=== PATIENT | male | born 1945 | race Two or more races ===

== ENCOUNTER 2018-12-04 11:56 | Inpatient (IN) | payer MEDICARE, MEDICAID ==
[~2018-12-04] VITALS: Ht 167.6 cm; Wt 67.8 kg
[2018-12-04] VITALS (12 sets, daily range): BP systolic 71–141; BP diastolic 46–73
--- NOTE | 2018-12-04 11:56 | NUR ---
ED Nurse Note: Patient arrived via [facility] paramedics from [facility] for AMS and respiratory distress with noted desaturation. Patient noted obtunded, with noted respiratory distress while on oxygen via NC. Noted desaturation, and crackles noted on auscultation. Nasotracheal suctioning done but patient remained SOB and tachypneic. Thin, yellow in color, large in amount. ST on the monitor with rate:126, with rectal temperature of 104F. Patient noted with patent and intact Gtube. With left EJ peripheral line gauge 18 and left upper arm PICC line, double lumen, able to draw blood only on red port. With loose, yellow stool, large in amount. Skin is intact, just noted scars on buttocks and sacrum, with dry dark brown discoloration of bilateral lower legs and feet. Noted nonpitting edema on arms and hands.
[2018-12-04] MEDS ORDERED: Acetaminophen 650 MG SUPP RECTAL ONE (12:00)
--- NOTE | 2018-12-04 12:30 | Emergency Room Report ---
History of Present Illness General Chief Complaint: Altered Level of Consciousness Source: Medical Record Present Illness HPI Patient presents from nursing facility in severe distress appears hypoxic and tachypneic patient upon arrival has significantly elevated temperature Patient himself Is nonverbal history of present illness is significantly limited patient was found more altered than usual by nursing staff and Paramedics summoned patient has feeding tube in place unknown regarding vomiting or diarrhea Unknown regarding change in medications patient's care home packet is being reviewed Allergies: Coded Allergies: No Known Allergies (Unverified , 12/04/18) Patient History Limited by: medical condition Past Medical History: see triage record Pertinent Family History: unable to obtain Reviewed Nursing Documentation: PMH: Agreed; PSxH: Agreed Nursing Documentation-PMH Past Medical History: No History, Except For Hx Hypertension: Yes - bradycardia Hx COPD: Yes - Acute pulmonary edema Hx Diabetes: Yes - TYPE 2 Hx Gastrointestinal Problems: Yes - G-tube Hx Neurological Problems: Yes - metabolic encephalopathy, muscle weakness, dementia, myalgia Review of Systems All Other Systems: limited - Limited review of system Physical Exam Vital Signs Date Time Temp Pulse Resp B/P (MAP) Pulse Ox O2 Delivery O2 Flow Rate FiO2 12/04/18 11:56 104.0 128 26 115/62 74 Nasal Cannula 4.0 Sp02 EP Interpretation: reviewed, abnormal - 74% on room air which is low on nonrebreather patient saturating at 98% which is normal percentage Head: normocephalic, atraumatic Eyes: bilateral eye PERRL ENT: dry mucus membranes Neck: supple Respiratory: other - Tachypneic audible crackles, accessory muscle use Cardiovascular #1: regular rate, rhythm Gastrointestinal: non tender, soft - Feeding tube in place umbilical hernia palpable soft and easily reducible Musculoskeletal: other - Patient has a significantly decreased GCS is not withdrawing from stimuli Neurologic: other - Significantly decreased GCS, poor gag reflex Skin: no rash, other - PICC line left upper arm Lymphatic: no adenopathy Procedures Critical Care Time Critical Care Time 70 minutes for initial critical presentation respiratory failure severe sepsis multiple re-evaluations not including any procedural time Intubation Intubation : Consent: Emergent Intubation Method: orotracheal Tube Size (cm): 8.0 Medications: Succinylcholine Breath Sounds after Intubation: equal Intubation Complications: no complications Post Intubation Xray: Yes Attempts: One Patient Tolerated: Well Complications: None Medical Decision Making Diagnostic Impression: Primary Impression: Respiratory failure Additional Impression: Septic shock ER Course Patient is a fairly complex patient with multiple differential to consideration including but not limited to cardiac cardiopulmonary and vascular emergencies Sepsis severe sepsis patient is in acute respiratory failure required airway intubation Sepsis reexamination Time:1400 VS refer to nursing note cvs: RRR respiratory: improved respiration peripheral pulses: 2+radial cap refill:<2 seconds skin exam: warm, dry, not mottled, Labs Test 12/04/18 12:05 White Blood Count 28.1 K/UL (4.8-10.8) Red Blood Count 3.13 M/UL (4.70-6.10) Hemoglobin 7.9 G/DL (14.2-18.0) Hematocrit 24.6 % (42.0-52.0) Mean Corpuscular Volume 79 FL (80-99) Mean Corpuscular Hemoglobin 25.3 PG (27.0-31.0) Mean Corpuscular Hemoglobin Concent 32.2 G/DL (32.0-36.0) Red Cell Distribution Width 18.1 % (11.6-14.8) Platelet Count 491 K/UL (150-450) Mean Platelet Volume 7.3 FL (6.5-10.1) Neutrophils (%) (Auto) % (45.0-75.0) Lymphocytes (%) (Auto) % (20.0-45.0) Monocytes (%) (Auto) % (1.0-10.0) Eosinophils (%) (Auto) % (0.0-3.0) Basophils (%) (Auto) % (0.0-2.0) Urine Color Yellow Urine Appearance Slightly cloudy Urine pH 5 (4.5-8.0) Urine Specific [place] 1.015 (1.005-1.035) Urine Protein 3+ (NEGATIVE) Urine Glucose (UA) Negative (NEGATIVE) Urine Ketones 1+ (NEGATIVE) Urine Blood 2+ (NEGATIVE) Urine Nitrite Negative (NEGATIVE) Urine Bilirubin Negative (NEGATIVE) Urine Urobilinogen 8 MG/DL (0.0-1.0) Urine Leukocyte Esterase 3+ (NEGATIVE) Urine RBC 2-4 /HPF (0 - 0) Urine WBC 40-60 /HPF (0 - 0) Urine Squamous Epithelial Cells Few /LPF (NONE/OCC) Urine Bacteria Moderate /HPF (NONE) Sodium Level 140 MMOL/L (136-145) Potassium Level 3.0 MMOL/L (3.5-5.1) Chloride Level 101 MMOL/L (98-107) Carbon Dioxide Level 23 MMOL/L (21-32) Anion Gap 16 mmol/L (5-15) Blood Urea Nitrogen 33 mg/dL (7-18) Creatinine 1.8 MG/DL (0.55-1.30) Estimat Glomerular Filtration Rate mL/min (>60) Glucose Level 96 MG/DL (74-106) Lactic Acid Level 5.80 mmol/L (0.4-2.0) Calcium Level 8.5 MG/DL (8.5-10.1) Total Bilirubin 1.0 MG/DL (0.2-1.0) Aspartate Amino Transf (AST/SGOT) 62 U/L (15-37) Alanine Aminotransferase (ALT/SGPT) 56 U/L (12-78) Alkaline Phosphatase 144 U/L (46-116) Total Creatine Kinase 223 U/L (26-308) Creatine Kinase MB 4.1 NG/ML (0.0-3.6) Creatine Kinase MB Relative Index 1.8 Troponin I 0.142 ng/mL (0.000-0.056) Pro-B-Type Natriuretic Peptide 2599 pg/mL (0-125) Total Protein 8.2 G/DL (6.4-8.2) Albumin 1.5 G/DL (3.4-5.0) Globulin 6.7 g/dL Albumin/Globulin Ratio 0.2 (1.0-2.7) Lipase 117 U/L (73-393) Rhythm Strip Diag. Results EP Interpretation: yes Rate: 110 Rhythm: no PVC's, no ectopy, other Chest X-Ray Diagnostic Results Chest X-Ray Diagnostic Results #1: Chest X-Ray Ordered: Yes # of Views/Limited/Complete: 1 View Indication: Shortness of Breath Interpretation: no pneumothorax, other - Bilateral infiltrates, cardiomegaly , interstitial disease edema Impression: Other - Bilateral patchy infiltrates Electronically Signed by: Dayton Jain DO Chest X-Ray Diagnostic Results #2: Chest X-Ray Ordered: Yes # of Views/Limited/Complete: 1 View Indication: Other - Intubation Interpretation: no pneumothorax, other - ET tube appropriately positioned, persistent bilateral infiltrates Impression: Other - ET tube appropriate position Electronically Signed by: Dayton Jain DO Last Vital Signs Date Time Temp Pulse Resp B/P (MAP) Pulse Ox O2 Delivery O2 Flow Rate FiO2 12/04/18 11:56 104.0 128 26 115/62 74 Nasal Cannula 4.0 Status: improved Disposition: ADMITTED INPATIENT Condition: Critical Dayton Jain DO Dec 04, 2018 12:30
--- NOTE | 2018-12-04 12:35 | NUR ---
Pt came in with resp distress. NT sxn'd copious amounts of secretions. Pt had increased wob and MD Jain made decision to intubate. Pt was intubated with 8.0 23 @ lip. Pt was placed on AC 15 600 100% +5. Will continue to monitor. Addendum: 12/04/18 at 1530 by GIFTY GLOVER RT Amended: Links added.
[2018-12-04 12:36] LABS: APPEARANCE,URINE SLIGHTLY CLOUDY; BILIRUBIN, URINE NEGATIVE (NEGATIVE); GLUCOSE, URINE (UA) NEGATIVE (NEGATIVE); KETONES,URINE 1+ (NEGATIVE); LEUKOCYTE ESTERASE ,URINE 3+ (NEGATIVE); NITRITE,URINE NEGATIVE (NEGATIVE); PH,URINE 5 (4.5-8.0); PROTEIN,URINE 3+ (NEGATIVE); UROBILINOGEN,URINE 8 MG/DL (0.0-1.0)
[2018-12-04 12:38] LABS: HEMATOCRIT 24.6 % (42.0-52.0); HEMOGLOBIN 7.9 G/DL (14.2-18.0); MEAN CORPUSCULAR VOLUME 79 FL (80-99); PLATELET COUNT 491 K/UL (150-450); RED BLOOD COUNT 3.13 M/UL (4.70-6.10); RED CELL DISTRIBUTION WIDTH 18.1 % (11.6-14.8)
[2018-12-04 12:42] LABS: WHITE BLOOD COUNT 28.1 K/UL (4.8-10.8)
[2018-12-04 12:50] LABS: COLOR,URINE YELLOW
[2018-12-04 13:00] LABS: ANION GAP 16 mmol/L (5-15); BLOOD UREA NITROGEN 33 mg/dL (7-18); CALCIUM 8.5 MG/DL (8.5-10.1); CARBON DIOXIDE 23 MMOL/L (21-32); CHLORIDE 101 MMOL/L (98-107); CREATININE 1.8 MG/DL (0.55-1.30); SODIUM 140 MMOL/L (136-145)
[2018-12-04] MEDS ORDERED: Sodium Chloride 2,200 ML IVLG ONE (13:00)
[2018-12-04] MEDS ORDERED: Piperacillin/Tazobactam 3.375 GM in NS 110 ML IVPB ONE (13:00)
[2018-12-04] MEDS ORDERED: Vancomycin 1.5gm/D5W 275ml 250 ML IVPB ONE (13:00)
--- NOTE | 2018-12-04 13:00 | NUR ---
ED Nurse Note: Patient remains SOB and tachypneic, obtunded and still noted with crackles. ERMD examined and intubated patient at 1235 with ETT size 8.0 at 23 cm lip level and connected to mechanical ventilator with setting of AC 18, TV:600, FiO2:50%. Post intubation CXR and ABG orders in place. Suctioning done. Incontinent care done. Patient noted with low BP after intubation but noted improved. Dr. Dumont also made aware of the WBC:28.1.
[2018-12-04 13:12] LABS: ALANINE AMINOTRANSFERASE 56 U/L (12-78); ALBUMIN 1.5 G/DL (3.4-5.0); ALBUMIN/GLOBULIN RATIO 0.2 (1.0-2.7); ALKALINE PHOSPHATASE 144 U/L (46-116); ASPARTATE AMINO TRANSFERASE 62 U/L (15-37); CKMB 4.1 NG/ML (0.0-3.6); CREATINE KINASE 223 U/L (26-308)
--- NOTE | 2018-12-04 13:55 | Pulmonolgy Critical Care Note ---
Critical Care - Asmt/Plan Problems: (1) Acute respiratory failure (2) Septic shock (3) Hypothyroidism (4) History of hypertension (5) Feeding by G-tube Respiratory: monitor respiratory rate, adjust FIO2, CXR Cardiac: continue to monitor HR/BP Renal: F/U I&O, keep IV fluid, check electrolytes Infectious Disease: check cultures, add antibiotics Gastrointestinal: continue feedings/current rate Endocrine: monitor blood sugar Hematologic: monitor H/H, transfuse if hgb<8.5 Neurologic: PRN Morphine, keep patient comfortable Disposition: keep in ICU Notes Reviewed: stained glass installer Discussed with: nurses, consultants, case makerconstruction project manager - Objective Last 24 Hour Vital Signs Date Time Temp Pulse Resp B/P (MAP) Pulse Ox O2 Delivery O2 Flow Rate FiO2 12/04/18 11:56 104.0 126 32 84/46 74 Nasal Cannula 4.0 12/04/18 11:56 126 32 Nasal Cannula 4.0 12/04/18 11:56 104.0 128 26 115/62 74 Nasal Cannula 4.0 Accucheck: 101 Critical Care - Subjective ROS Limited/Unobtainable: Yes Sputum Amount: Moderate Fluids: NS 100 cc/hour CXR: bilateral infiltrate Labs: Laboratory Tests Test 12/04/18 12:00 12/04/18 12:05 Arterial Blood pH 7.353 (7.350-7.450) Arterial Blood Partial Pressure CO2 40.3 mmHg (35.0-45.0) Arterial Blood Partial Pressure O2 281.2 mmHg (75.0-100.0) H Arterial Blood HCO3 21.9 mmol/L (22.0-26.0) L Arterial Blood Oxygen Saturation 99.5 % (95-100) Arterial Blood Base Excess -3.4 (-2-2) L A[place] Test Positive White Blood Count 28.1 K/UL (4.8-10.8) *H Red Blood Count 3.13 M/UL (4.70-6.10) L Hemoglobin 7.9 G/DL (14.2-18.0) L Hematocrit 24.6 % (42.0-52.0) L Mean Corpuscular Volume 79 FL (80-99) L Mean Corpuscular Hemoglobin 25.3 PG (27.0-31.0) L Mean Corpuscular Hemoglobin Concent 32.2 G/DL (32.0-36.0) Red Cell Distribution Width 18.1 % (11.6-14.8) H Platelet Count 491 K/UL (150-450) H Mean Platelet Volume 7.3 FL (6.5-10.1) Neutrophils (%) (Auto) % (45.0-75.0) Lymphocytes (%) (Auto) % (20.0-45.0) Monocytes (%) (Auto) % (1.0-10.0) Eosinophils (%) (Auto) % (0.0-3.0) Basophils (%) (Auto) % (0.0-2.0) Differential Total Cells Counted 100 Neutrophils % (Manual) 94 % (45-75) H Lymphocytes % (Manual) 4 % (20-45) L Monocytes % (Manual) 2 % (1-10) Eosinophils % (Manual) 0 % (0-3) Basophils % (Manual) 0 % (0-2) Band Neutrophils 0 % (0-8) Platelet Estimate Adequate Platelet Morphology Normal Hypochromasia 3+ Anisocytosis 2+ Microcytosis 1+ Urine Color Yellow Urine Appearance Slightly cloudy Urine pH 5 (4.5-8.0) Urine Specific [place] 1.015 (1.005-1.035) Urine Protein 3+ (NEGATIVE) H Urine Glucose (UA) Negative (NEGATIVE) Urine Ketones 1+ (NEGATIVE) H Urine Blood 2+ (NEGATIVE) H Urine Nitrite Negative (NEGATIVE) Urine Bilirubin Negative (NEGATIVE) Urine Urobilinogen 8 MG/DL (0.0-1.0) H Urine Leukocyte Esterase 3+ (NEGATIVE) H Urine RBC 2-4 /HPF (0 - 0) H Urine WBC 40-60 /HPF (0 - 0) H Urine Squamous Epithelial Cells Few /LPF (NONE/OCC) Urine Bacteria Moderate /HPF (NONE) H Sodium Level 140 MMOL/L (136-145) Potassium Level 3.0 MMOL/L (3.5-5.1) L Chloride Level 101 MMOL/L (98-107) Carbon Dioxide Level 23 MMOL/L (21-32) Anion Gap 16 mmol/L (5-15) H Blood Urea Nitrogen 33 mg/dL (7-18) H Creatinine 1.8 MG/DL (0.55-1.30) H Estimat Glomerular Filtration Rate mL/min (>60) Glucose Level 96 MG/DL (74-106) Lactic Acid Level 5.80 mmol/L (0.4-2.0) H Calcium Level 8.5 MG/DL (8.5-10.1) Total Bilirubin 1.0 MG/DL (0.2-1.0) Aspartate Amino Transf (AST/SGOT) 62 U/L (15-37) H Alanine Aminotransferase (ALT/SGPT) 56 U/L (12-78) Alkaline Phosphatase 144 U/L (46-116) H Total Creatine Kinase 223 U/L (26-308) Creatine Kinase MB 4.1 NG/ML (0.0-3.6) H Creatine Kinase MB Relative Index 1.8 Troponin I 0.142 ng/mL (0.000-0.056) Pro-B-Type Natriuretic Peptide 2599 pg/mL (0-125) H Total Protein 8.2 G/DL (6.4-8.2) Albumin 1.5 G/DL (3.4-5.0) L Globulin 6.7 g/dL Albumin/Globulin Ratio 0.2 (1.0-2.7) L Lipase 117 U/L (73-393) Isaiah Fritz MD Dec 04, 2018 13:55
[2018-12-04] MEDS ORDERED: Albuterol/Ipratropium 3ml neb HHN PRN (14:00)
--- NOTE | 2018-12-04 14:00 | NUR ---
ED NURSE NOTES: Patient's heart rate and breathing improved, with HR 90s-100s. Still with large amount on ETT secretions, yellow in color. Lactic reflex collected. Andrade catheter inserted as ordered. Antibiotics given as ordered.
[2018-12-04] MEDS ORDERED: ASPIR 8181 MG ORAL (14:47)
[2018-12-04] MEDS ORDERED: COLACE100 MG ORAL (14:47)
[2018-12-04] MEDS ORDERED: IPRATROPIU0.2 MG/1 M HHN (14:47)
[2018-12-04] MEDS ORDERED: CARDIZEM30 MG ORAL (14:47)
[2018-12-04] MEDS ORDERED: SYNTHROID25 MCG ORAL (14:47)
[2018-12-04] MEDS ORDERED: Miralax 17gm pkt ORAL PRN (15:05)
[2018-12-04] MEDS ORDERED: Succinylcholine 20mg/ml 10ml vial ONE (15:35)
--- NOTE | 2018-12-04 15:40 | NUR ---
ED Nurse Note: Patient's BP improved, no desaturation noted on current ventilator setting with oxygen saturation of 100%, suctioning done. All medications given as ordered. Transferred to ICU via gurney accompanied by appeals writer, SENIOR SCHEDULER and RT. Ambubagging done by RT while patient is hooked on classroom monitor. No desaturation noted during transfer. Transferred to room 246-E. Patient has no belongings.
--- NOTE | 2018-12-04 16:00 | NUR ---
NURSE NOTES: Patient hooked to telemetry monitor and hooked back to mechanical ventilator with setting of AC 18, TV:600, FiO2:50%, ETT suctioning done with moderate to large yellow secretions noted, PICC line dressing changed. Started IVF of NS at 100 ml/hour as ordered. All extremities elevated with pillows.
--- NOTE | 2018-12-04 17:12 | Diagnostic Imaging Report ---
Indication: Shortness of breath Technique: One view of the chest Comparison: none Findings: There are bilateral diffuse but predominantly lower lung interstitial and airspace infiltrates versus edema. No definite effusions. Heart size is upper limits of normal. Considerable bowel gas is present. Impression: Extensive bilateral interstitial and airspace disease, infiltrates versus edema.
--- NOTE | 2018-12-04 17:13 | Diagnostic Imaging Report ---
Indication: Post intubation Technique: One view of the chest Comparison: 40 minutes earlier Findings: Interim endotracheal intubation, endotracheal tube tip projecting proximally 5 cm above the debbie. Bilateral interstitial and airspace disease persists, unchanged. Left arm midline is noted Impression: Satisfactory endotracheal intubation Other stable findings as described
--- NOTE | 2018-12-04 18:20 | NUR ---
Took off PEEP due to vent order Addendum: 12/04/18 at 1820 by GIFTY GLOVER RT Amended: Links added.
--- NOTE | 2018-12-04 18:30 | NUR ---
NURSE NOTES: Informed Dr. Fritz of serum potassium:3.0 with noted last troponin level:0.142. Asked MD if would like to repeat troponin level and if he would like to give replacement on potassium. Awaiting for further orders. Addendum: 12/04/18 at 1835 by Nika Mendosa RN NURSE NOTES: Call back received with order to repeat troponin in AM and give KCL 40 mEq IVPB once.
--- NOTE | 2018-12-04 19:30 | NUR ---
NURSE NOTES:Received pt, with eyes close appreared fatigue, orally intubated on AC mode ST on the monitor, low 100s bp127/39 temp 100.6F RT arm not moving with 2-3+ edema, left arm 3/5 , bilateral lower extremities respond to pain stimuli , MDs are aware per am DARIANA Maher. Yeung to gravity with moderate amt of ashley yellow colored urine, yeung cath care done. NS at 100ml/hr infusing well to BRADLEY PICC line, site with drsg dry and intact. Pt also has Left EJ g18 cath. patent. Will continue to monitor.
--- NOTE | 2018-12-04 19:33 | NUR ---
HAND-OFF: Report given to Tiesha Mason RN.
[2018-12-04] MEDS ORDERED: Amikacin 1,000 MG in NS 110 ML IV SCH (20:00)
--- NOTE | 2018-12-04 20:30 | NUR ---
NURSE NOTES:Cooling measures were started.
[2018-12-04] MEDS ORDERED: Ertapenem 1 GM in NS 55 ML IV SCH (21:00)
[2018-12-04] MEDS: Heparin 5000 units/ml inj SUBQ SCH (21:13)
--- NOTE | 2018-12-04 22:30 | NUR ---
NURSE NOTES:Temp 99.8F bp stable at this time.
[2018-12-04] MEDS ORDERED: Vancomycin 1 GM in D5W 275 ML IV SCH (23:45)
[2018-12-05] VITALS (24 sets, daily range): BP systolic 137–181; BP diastolic 41–85
--- NOTE | 2018-12-05 | NUR ---
NURSE NOTES: Pt seen attempted to pull out ETT with his left hand- soft wrist restraint applied to left hand per Dr Catrina novoa.
--- NOTE | 2018-12-05 | NUR ---
NURSE NOTES:Fi02 down to 45%. Suctioned tk beige secretions moderate in amt. 02 sat 98%.
--- NOTE | 2018-12-05 02:00 | NUR ---
NURSE NOTES:Suctioned and turned for comfort.
--- NOTE | 2018-12-05 04:09 | NUR ---
NURSE NOTES:Afebrile 99.8F vss. more awake at this time. Explained and reoriented to time place and person- Pt with good eye contact at this time.
[2018-12-05 05:29] LABS: HEMATOCRIT 20.8 % (42.0-52.0); MEAN CORPUSCULAR VOLUME 79 FL (80-99); PLATELET COUNT 357 K/UL (150-450); RED BLOOD COUNT 2.64 M/UL (4.70-6.10); RED CELL DISTRIBUTION WIDTH 17.7 % (11.6-14.8); WHITE BLOOD COUNT 20.9 K/UL (4.8-10.8)
--- NOTE | 2018-12-05 06:00 | NUR ---
NURSE NOTES:complete bed bath with bed changed dne.
[2018-12-05 06:02] LABS: HEMOGLOBIN 6.5 G/DL (14.2-18.0)
[2018-12-05 06:18] LABS: ALANINE AMINOTRANSFERASE 41 U/L (12-78); ALBUMIN 1.3 G/DL (3.4-5.0); ALBUMIN/GLOBULIN RATIO 0.2 (1.0-2.7); ALKALINE PHOSPHATASE 119 U/L (46-116); ANION GAP 11 mmol/L (5-15); ASPARTATE AMINO TRANSFERASE 49 U/L (15-37); BILIRUBIN,DIRECT 0.5 MG/DL (0.0-0.3); BILIRUBIN,TOTAL 0.6 MG/DL (0.2-1.0); BLOOD UREA NITROGEN 30 mg/dL (7-18); CALCIUM 8.1 MG/DL (8.5-10.1); CARBON DIOXIDE 23 MMOL/L (21-32); CHLORIDE 107 MMOL/L (98-107); CREATININE 1.4 MG/DL (0.55-1.30); POTASSIUM 2.8 MMOL/L (3.5-5.1); SODIUM 141 MMOL/L (136-145)
--- NOTE | 2018-12-05 07:19 | NUR ---
RESPIRATORY NOTE: Patient received mechanically ventilated on PB 840 with current ordered vent settings. Patient is orally intubated with 8.0 ETT tube with 23cm at the lip. ETT tube is secured with anchor fast. Patient presents with bilateral rales at lower bases of the lungs. Small amount of thin clear secretions were suctioned without incident. There is an ambu bag available at the bedside and the vent is connected to a red outlet. Vent alarms are functional and audible. Will continue to monitor.
--- NOTE | 2018-12-05 07:19 | NUR ---
HAND-OFF: Report given to Nika Lopez using sbar.
--- NOTE | 2018-12-05 07:40 | NUR ---
NURSE NOTES: Report received from Tiesha Mason RN. Patient noted arousable to speech, opens eyes to speech, PERRLA noted 3 mm in size. SR on the monitor 70s. No s/sx of distress noted with patent and intact ETT size 8.0 at 23 cm lip level to mechanical ventilator received at AC 18, TV:600, FiO2:35%. RT Lisa has changed setting to order setting of AC 16, TV:600, FiO2:35%. Suctioning done, oral care done. With patent and intact Gtube, clamped at this time, no residual noted. With patent and intact indwelling yeung catheter. With patent and intact left upper arm PICC line, unable to draw blood with on going IVF of NS at 100 ml/hour. With patent and intact left EJ saline lock. Repositioning done, all extremities elevated with pillows. Patient noted reaching and trying to pull ETT during dividing machine operator helper, received patient with left soft wrist restraints. Restraint care to be done. Placed bed on lowest position. Call light within reach.
--- NOTE | 2018-12-05 07:49 | NUR ---
NURSE NOTES: Called Dr. Fritz and informed of serum potassium:2.8 and also serum troponin is higher:0.270. Asked if MD would like to repeat troponin. Awaiting for further orders.
[2018-12-05] MEDS ORDERED: Vancomycin 1250mg/D5W 250ml IVPB SCH (08:30)
--- NOTE | 2018-12-05 08:31 | NUR ---
NURSE NOTES: Called and spoke with sister, Viktoria Tenorio and was able to get consent for blood transfusion, witnessed by Saravanan Monterroso RN.
[2018-12-05] MEDS: Heparin 5000 units/ml inj SUBQ SCH ×3 (09:00→20:50)
[2018-12-05] MEDS: Pantoprazole Inj IVP SCH (09:06)
--- NOTE | 2018-12-05 09:23 | NUR ---
RADIOLOGY DEPT CHEST X-RAY DONE.-P.DYE
--- NOTE | 2018-12-05 09:36 | NUR ---
NURSE NOTES: Called Dr. Fritz again and informed on serum potassium:2.8 and elevated troponin. Also clarified order of transfusion of 1 unit PRBC for HGB:6.5. Clarified if MD would just like to transfuse 1 unit. Also made aware that blood won't be available until later per blood bank. [facility]. Awaiting for further orders.
--- NOTE | 2018-12-05 10:46 | Diagnostic Imaging Report ---
APPROVED REPORT CPT Code: 10074 Present Symptoms Shortness of breath BILATERAL: Imaging reveals a patent deep venous system bilaterally. There is no evidence of thrombus within the femoral, popliteal or tibial segments. The greater saphenous veins are also within normal limits. Doppler indicates normal spontaneous flow within these segments.
--- NOTE | 2018-12-05 11:00 | Pulmonolgy Critical Care Note ---
Critical Care - Asmt/Plan Problems: (1) Acute respiratory failure (2) Septic shock (3) History of hypertension (4) Feeding by G-tube (5) Hypothyroidism Respiratory: monitor respiratory rate, adjust FIO2, CXR Cardiac: continue to monitor HR/BP Renal: F/U I&O, check electrolytes Infectious Disease: check cultures, continue antibiotics Gastrointestinal: continue feedings/current rate Hematologic: monitor H/H, transfuse if hgb<8.5 Neurologic: PRN Ativan, PRN Morphine, keep patient comfortable Prophylaxis: Protonix Disposition: keep in ICU Time Spent (Minutes): 40 Notes Reviewed: electron tube assembler, cardio, renal Discussed with: nurses, consultants, counter caseraircraft manager - Objective Last 24 Hour Vital Signs Date Time Temp Pulse Resp B/P (MAP) Pulse Ox O2 Delivery O2 Flow Rate FiO2 12/05/18 10:00 105 19 140/51 (80) 100 12/05/18 09:00 95 19 162/67 (98) 100 12/05/18 08:48 Mechanical Ventilator 12/05/18 08:00 96 12/05/18 08:00 35 12/05/18 08:00 Mechanical Ventilator 12/05/18 08:00 99.5 96 19 149/41 (77) 100 12/05/18 07:30 35 12/05/18 07:15 99 19 35 12/05/18 07:00 90 19 148/56 (86) 100 12/05/18 06:00 88 19 151/47 (81) 100 12/05/18 05:05 94 18 100 12/05/18 05:00 100 19 140/79 (99) 100 12/05/18 04:00 Mechanical Ventilator 12/05/18 04:00 102 12/05/18 04:00 35 12/05/18 04:00 99.6 104 19 137/79 (98) 100 12/05/18 03:18 94 18 100 12/05/18 03:00 95 19 140/42 (74) 100 12/05/18 02:00 96 19 143/42 (75) 100 12/05/18 01:17 97 21 100 12/05/18 01:00 95 19 140/48 (78) 100 12/05/18 00:00 99.8 103 21 141/73 (95) 100 12/05/18 00:00 105 12/05/18 00:00 Mechanical Ventilator 12/05/18 00:00 45 12/04/18 23:15 94 18 100 12/04/18 22:00 103 21 130/73 (92) 100 12/04/18 21:30 100 18 100 12/04/18 21:00 106 21 141/73 (95) 100 12/04/18 20:00 50 12/04/18 20:00 100.8 105 21 133/55 (81) 100 12/04/18 20:00 Mechanical Ventilator 12/04/18 20:00 114 12/04/18 19:38 108 26 100 12/04/18 19:00 105 22 133/49 (77) 100 12/04/18 18:00 104 18 121/54 (76) 100 12/04/18 17:25 101 19 100 12/04/18 17:00 100 21 107/57 (74) 100 12/04/18 16:14 100 26 100 12/04/18 16:00 Mechanical Ventilator 12/04/18 16:00 100.0 101 20 110/60 (77) 100 12/04/18 16:00 100.4 99 20 110/56 100 Mechanical Ventilator 4.0 50 12/04/18 16:00 50 12/04/18 16:00 109 12/04/18 15:35 100.4 99 20 110/56 100 Mechanical Ventilator 50 12/04/18 15:00 101.4 105 18 103/59 99 Mechanical Ventilator 50 12/04/18 14:00 104 20 96/62 99 Mechanical Ventilator 50 12/04/18 13:00 118 21 71/46 94 Mechanical Ventilator 50 12/04/18 12:55 100.5 12/04/18 12:35 119 18 100 12/04/18 11:56 104.0 126 32 84/46 74 Nasal Cannula 4.0 12/04/18 11:56 126 32 Nasal Cannula 4.0 12/04/18 11:56 104.0 128 26 115/62 74 Nasal Cannula 4.0 Status: awake Condition: critical HEENT: atraumatic Neck: full ROM Lungs: clear Heart: HR/BP stable Abdomen: soft, active bowel sounds Extremities: no C/C/E Decubiti: location Micro: Microbiology Date/Time Source Procedure Growth Status 12/04/18 13:15 Nasal Nares Influenza Types A,B Antigen (PEEWEE) - Final Complete 12/04/18 12:05 Urine,Clean Catch Urine Culture - Preliminary NO GROWTH Resulted Accucheck: 101 Critical Care - Subjective ROS Limited/Unobtainable: Yes Interval Events: awake, comfortable Condition: critical FI02: 35 Vent Support Breath Rate: 16 Vent Support Mode: AC Vent Tidal Volume: 600 Sputum Amount: None PEEP: 0.0 PIP: 23 I&O: Intake and Output 12/04/18 12/05/18 19:00 07:00 Intake Total 2560 ml 1200 ml Output Total 150 ml 630 ml Balance 2410 ml 570 ml Intake Oral 0 ml Free Water 0 ml IV Total 2560 ml 1200 ml Output Urine Total 150 ml 630 ml # Voids 60 # Bowel Movements 3 CXR: bilateral infiltrate ET in good position ET-Tube: 8.0 ET Position: 23 Labs: Laboratory Tests Test 12/04/18 12:00 12/04/18 12:05 12/04/18 14:05 12/04/18 21:35 Arterial Blood pH 7.353 (7.350-7.450) Arterial Blood Partial Pressure CO2 40.3 mmHg (35.0-45.0) Arterial Blood Partial Pressure O2 281.2 mmHg (75.0-100.0) H Arterial Blood HCO3 21.9 mmol/L (22.0-26.0) L Arterial Blood Oxygen Saturation 99.5 % (95-100) Arterial Blood Base Excess -3.4 (-2-2) L Aroldo Test Positive White Blood Count 28.1 K/UL (4.8-10.8) *H Red Blood Count 3.13 M/UL (4.70-6.10) L Hemoglobin 7.9 G/DL (14.2-18.0) L Hematocrit 24.6 % (42.0-52.0) L Mean Corpuscular Volume 79 FL (80-99) L Mean Corpuscular Hemoglobin 25.3 PG (27.0-31.0) L Mean Corpuscular Hemoglobin Concent 32.2 G/DL (32.0-36.0) Red Cell Distribution Width 18.1 % (11.6-14.8) H Platelet Count 491 K/UL (150-450) H Mean Platelet Volume 7.3 FL (6.5-10.1) Neutrophils (%) (Auto) % (45.0-75.0) Lymphocytes (%) (Auto) % (20.0-45.0) Monocytes (%) (Auto) % (1.0-10.0) Eosinophils (%) (Auto) % (0.0-3.0) Basophils (%) (Auto) % (0.0-2.0) Differential Total Cells Counted 100 Neutrophils % (Manual) 94 % (45-75) H Lymphocytes % (Manual) 4 % (20-45) L Monocytes % (Manual) 2 % (1-10) Eosinophils % (Manual) 0 % (0-3) Basophils % (Manual) 0 % (0-2) Band Neutrophils 0 % (0-8) Platelet Estimate Adequate Platelet Morphology Normal Hypochromasia 3+ Anisocytosis 2+ Microcytosis 1+ Urine Color Yellow Urine Appearance Slightly cloudy Urine pH 5 (4.5-8.0) Urine Specific [place] 1.015 (1.005-1.035) Urine Protein 3+ (NEGATIVE) H Urine Glucose (UA) Negative (NEGATIVE) Urine Ketones 1+ (NEGATIVE) H Urine Blood 2+ (NEGATIVE) H Urine Nitrite Negative (NEGATIVE) Urine Bilirubin Negative (NEGATIVE) Urine Urobilinogen 8 MG/DL (0.0-1.0) H Urine Leukocyte Esterase 3+ (NEGATIVE) H Urine RBC 2-4 /HPF (0 - 0) H Urine WBC 40-60 /HPF (0 - 0) H Urine Squamous Epithelial Cells Few /LPF (NONE/OCC) Urine Bacteria Moderate /HPF (NONE) H Sodium Level 140 MMOL/L (136-145) Potassium Level 3.0 MMOL/L (3.5-5.1) L Chloride Level 101 MMOL/L (98-107) Carbon Dioxide Level 23 MMOL/L (21-32) Anion Gap 16 mmol/L (5-15) H Blood Urea Nitrogen 33 mg/dL (7-18) H Creatinine 1.8 MG/DL (0.55-1.30) H Estimat Glomerular Filtration Rate mL/min (>60) Glucose Level 96 MG/DL (74-106) Lactic Acid Level 5.80 mmol/L (0.4-2.0) H 3.00 mmol/L (0.66-2.22) H 1.40 mmol/L (0.4-2.0) Calcium Level 8.5 MG/DL (8.5-10.1) Total Bilirubin 1.0 MG/DL (0.2-1.0) Aspartate Amino Transf (AST/SGOT) 62 U/L (15-37) H Alanine Aminotransferase (ALT/SGPT) 56 U/L (12-78) Alkaline Phosphatase 144 U/L (46-116) H Total Creatine Kinase 223 U/L (26-308) Creatine Kinase MB 4.1 NG/ML (0.0-3.6) H Creatine Kinase MB Relative Index 1.8 Troponin I 0.142 ng/mL (0.000-0.056) Pro-B-Type Natriuretic Peptide 2599 pg/mL (0-125) H Total Protein 8.2 G/DL (6.4-8.2) Albumin 1.5 G/DL (3.4-5.0) L Globulin 6.7 g/dL Albumin/Globulin Ratio 0.2 (1.0-2.7) L Lipase 117 U/L (73-393) Test 12/05/18 04:20 12/05/18 08:00 12/05/18 09:20 White Blood Count 20.9 K/UL (4.8-10.8) H Red Blood Count 2.64 M/UL (4.70-6.10) L Hemoglobin 6.5 G/DL (14.2-18.0) *L Hematocrit 20.8 % (42.0-52.0) L Mean Corpuscular Volume 79 FL (80-99) L Mean Corpuscular Hemoglobin 24.8 PG (27.0-31.0) L Mean Corpuscular Hemoglobin Concent 31.5 G/DL (32.0-36.0) L Red Cell Distribution Width 17.7 % (11.6-14.8) H Platelet Count 357 K/UL (150-450) Mean Platelet Volume 7.3 FL (6.5-10.1) Neutrophils (%) (Auto) % (45.0-75.0) Lymphocytes (%) (Auto) % (20.0-45.0) Monocytes (%) (Auto) % (1.0-10.0) Eosinophils (%) (Auto) % (0.0-3.0) Basophils (%) (Auto) % (0.0-2.0) Differential Total Cells Counted 100 Neutrophils % (Manual) 88 % (45-75) H Lymphocytes % (Manual) 5 % (20-45) L Monocytes % (Manual) 5 % (1-10) Eosinophils % (Manual) 1 % (0-3) Basophils % (Manual) 1 % (0-2) Band Neutrophils 0 % (0-8) Platelet Estimate Adequate Platelet Morphology Normal Hypochromasia 4+ Anisocytosis 1+ Microcytosis 1+ Sodium Level 141 MMOL/L (136-145) Potassium Level 2.8 MMOL/L (3.5-5.1) L Chloride Level 107 MMOL/L (98-107) Carbon Dioxide Level 23 MMOL/L (21-32) Anion Gap 11 mmol/L (5-15) Blood Urea Nitrogen 30 mg/dL (7-18) H Creatinine 1.4 MG/DL (0.55-1.30) H Estimat Glomerular Filtration Rate mL/min (>60) Glucose Level 86 MG/DL (74-106) Calcium Level 8.1 MG/DL (8.5-10.1) L Total Bilirubin 0.6 MG/DL (0.2-1.0) Direct Bilirubin 0.5 MG/DL (0.0-0.3) H Aspartate Amino Transf (AST/SGOT) 49 U/L (15-37) H Alanine Aminotransferase (ALT/SGPT) 41 U/L (12-78) Alkaline Phosphatase 119 U/L (46-116) H Troponin I 0.270 ng/mL (0.000-0.056) Total Protein 7.1 G/DL (6.4-8.2) Albumin 1.3 G/DL (3.4-5.0) L Globulin 5.8 g/dL Albumin/Globulin Ratio 0.2 (1.0-2.7) L Random Vancomycin Level 10.3 ug/mL Random Amikacin Level 12.9 ug/mL Arterial Blood pH 7.434 (7.350-7.450) Arterial Blood Partial Pressure CO2 35.5 mmHg (35.0-45.0) Arterial Blood Partial Pressure O2 100.9 mmHg (75.0-100.0) H Arterial Blood HCO3 23.2 mmol/L (22.0-26.0) Arterial Blood Oxygen Saturation 97.5 % (95-100) Arterial Blood Base Excess -0.9 (-2-2) Aroldo Test Positive Isaiah Fritz MD Dec 05, 2018 11:00
--- NOTE | 2018-12-05 11:09 | NUR ---
RD ASSESSMENT & RECOMMENDATIONS SEE CARE ACTIVITY FOR COMPLETE ASSESSMENT DAILY ESTIMATED NEEDS: Needs based on Critical care, sepsis/ 67kg 22-28 kcals/kg 0140-9819 total kcals 1.2-2 g protein/kg 80-134 g total protein 25-30 mL/kg 0934-5255 total fluid mLs NUTRITION DIAGNOSIS: Swallowing difficulty R/T dysphagia as evidenced by pt is PEG dep, currently orally intubated, NPO at this time. CURRENT TF:NPO ENTERAL NUTRITION RECOMMENDATIONS: Jevity 1.2 @ 60ml/hr x 22 hrs + Prosource 1pkt QD to provide 1320ml, 1584kcal, 73g + 11g prot, 1082ml free water * As medically appropriate, initiate Jevity 1.2 @ 20ml/hr x 6 hrs * Advance 10ml q 4-6 hrs as tolerated to goal rate. 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
--- NOTE | 2018-12-05 11:12 | NUR ---
NURSE NOTES: Seen on rounds by Dr. Fritz and MD was made aware of HGB and clarified if he would just like to transfuse one unit with order to transfuse 2 units of PRBC, also made aware that we're still waiting [facility]. Also informed of trending high Troponin levels and MD stated he will consult Dr. Amaya. Informed of the recommendations of fare register repairer for tube feeding and MD ordered to carry out, MD aware that patient is also on IVF of NS at 100 ml/hour. Also ar HARRIS if it is okay to continue to administer Heparin with known low HGB level, platelet count:357 with order to continue to give Heparin and monitor for s/sx of bleeding. Informed that patient came in with PICC line with order to discontinue and insert a new PICC line or peripheral line. Also ordered no weaning at this time.
--- NOTE | 2018-12-05 11:44 | Diagnostic Imaging Report ---
Indication: Dyspnea Technique: One view of the chest Comparison: 12/04/2018 Findings: Extensive bilateral diffuse interstitial and airspace opacities persist, stable on the left, worse on the right. There may be increasing pleural fluid on the right, as well. Stable satisfactory position of endotracheal tube. Left arm midline again demonstrated Impression: Bilateral diffuse interstitial and airspace infiltrates versus edema, worsening on the right over one day
--- NOTE | 2018-12-05 12:00 | NUR ---
NURSE NOTES: Patient resting comfortably. Noted more alert, follows commands and able identify sister at the bedside. Still with episode of reaching ETT, still on left softwrist restraints. Started tube feeding of Jevity 1.2 at 20 ml/hour as ordered. No residual on Gtube noted prior to starting feeding. Denies pain. Repositioning done. Oral care done and suctioning done.
--- NOTE | 2018-12-05 12:47 | Consultation ---
History of Present Illness General Date patient seen: Dec 05, 2018 Chief Complaint: Altered Level of Consciousness Present Illness HPI 73 y/o M with hx of COPD, DM2, HTN, dysphagia s/p G-tube, dementia, SNF resident presents to ED on 12/04 with severe respiratory distress, hypoxia and fever. Febrile to 104. Leukocytosis tot he 20s. Patient was intubated in the ED and transferred to ICU. Allergies: Coded Allergies: No Known Allergies (Unverified , 12/04/18) Medication History Scheduled Aspirin* (Aspir 81*), 81 MG ORAL DAILY, (Reported) Diltiazem HCl (Diltiazem 12Hr ER), 30 MG ORAL EVERY 8 HOURS, (Reported) Docusate Sodium* (Colace*), 100 MG ORAL DAILY, (Reported) Levothyroxine Sodium* (Synthroid*), 25 MCG ORAL DAILY, (Reported) Scheduled PRN Ipratropium [place] 0.5MG/2.5ML (Ipratropium [place] 0.5MG/2.5ML), 0.5 MG HHN Q6H PRN for Shortness of Breath, (Reported) Patient History Healthcare decision maker Resuscitation status Full Code Advanced Directive on File Yes Review of Systems ROS Narrative unable to obtain Physical Exam Physical Exam Narrative Status: awake Condition: critical HEENT: atraumatic Neck: full ROM Lungs: clear Heart: HR/BP stable Abdomen: soft, active bowel sounds Extremities: no C/C/E Decubiti: location Last 24 Hour Vital Signs Date Time Temp Pulse Resp B/P (MAP) Pulse Ox O2 Delivery O2 Flow Rate FiO2 12/05/18 11:00 70 19 158/65 (96) 100 12/05/18 10:45 100 28 35 12/05/18 10:00 105 19 140/51 (80) 100 12/05/18 09:05 95 21 35 12/05/18 09:00 95 19 162/67 (98) 100 12/05/18 08:48 Mechanical Ventilator 12/05/18 08:00 96 12/05/18 08:00 35 12/05/18 08:00 Mechanical Ventilator 12/05/18 08:00 99.5 96 19 149/41 (77) 100 12/05/18 07:30 35 12/05/18 07:15 99 19 35 12/05/18 07:00 90 19 148/56 (86) 100 12/05/18 06:00 88 19 151/47 (81) 100 12/05/18 05:05 94 18 100 12/05/18 05:00 100 19 140/79 (99) 100 12/05/18 04:00 Mechanical Ventilator 12/05/18 04:00 102 12/05/18 04:00 35 12/05/18 04:00 99.6 104 19 137/79 (98) 100 12/05/18 03:18 94 18 100 12/05/18 03:00 95 19 140/42 (74) 100 12/05/18 02:00 96 19 143/42 (75) 100 12/05/18 01:17 97 21 100 12/05/18 01:00 95 19 140/48 (78) 100 12/05/18 00:00 99.8 103 21 141/73 (95) 100 12/05/18 00:00 105 12/05/18 00:00 Mechanical Ventilator 12/05/18 00:00 45 12/04/18 23:15 94 18 100 12/04/18 22:00 103 21 130/73 (92) 100 12/04/18 21:30 100 18 100 12/04/18 21:00 106 21 141/73 (95) 100 12/04/18 20:00 50 12/04/18 20:00 100.8 105 21 133/55 (81) 100 12/04/18 20:00 Mechanical Ventilator 12/04/18 20:00 114 12/04/18 19:38 108 26 100 12/04/18 19:00 105 22 133/49 (77) 100 12/04/18 18:00 104 18 121/54 (76) 100 12/04/18 17:25 101 19 100 12/04/18 17:00 100 21 107/57 (74) 100 12/04/18 16:14 100 26 100 12/04/18 16:00 Mechanical Ventilator 12/04/18 16:00 100.0 101 20 110/60 (77) 100 12/04/18 16:00 100.4 99 20 110/56 100 Mechanical Ventilator 4.0 50 12/04/18 16:00 50 12/04/18 16:00 109 12/04/18 15:35 100.4 99 20 110/56 100 Mechanical Ventilator 50 12/04/18 15:00 101.4 105 18 103/59 99 Mechanical Ventilator 50 12/04/18 14:00 104 20 96/62 99 Mechanical Ventilator 50 12/04/18 13:00 118 21 71/46 94 Mechanical Ventilator 50 12/04/18 12:55 100.5 12/04/18 12:35 119 18 100 Intake and Output 12/04/18 12/05/18 19:00 07:00 Intake Total 2560 ml 1200 ml Output Total 150 ml 630 ml Balance 2410 ml 570 ml Intake Oral 0 ml Free Water 0 ml IV Total 2560 ml 1200 ml Output Urine Total 150 ml 630 ml # Voids 60 # Bowel Movements 3 Laboratory Tests Test 12/04/18 14:05 12/04/18 21:35 12/05/18 04:20 12/05/18 08:00 Lactic Acid Level 3.00 mmol/L (0.66-2.22) H 1.40 mmol/L (0.4-2.0) White Blood Count 20.9 K/UL (4.8-10.8) H Red Blood Count 2.64 M/UL (4.70-6.10) L Hemoglobin 6.5 G/DL (14.2-18.0) *L Hematocrit 20.8 % (42.0-52.0) L Mean Corpuscular Volume 79 FL (80-99) L Mean Corpuscular Hemoglobin 24.8 PG (27.0-31.0) L Mean Corpuscular Hemoglobin Concent 31.5 G/DL (32.0-36.0) L Red Cell Distribution Width 17.7 % (11.6-14.8) H Platelet Count 357 K/UL (150-450) Mean Platelet Volume 7.3 FL (6.5-10.1) Neutrophils (%) (Auto) % (45.0-75.0) Lymphocytes (%) (Auto) % (20.0-45.0) Monocytes (%) (Auto) % (1.0-10.0) Eosinophils (%) (Auto) % (0.0-3.0) Basophils (%) (Auto) % (0.0-2.0) Differential Total Cells Counted 100 Neutrophils % (Manual) 88 % (45-75) H Lymphocytes % (Manual) 5 % (20-45) L Monocytes % (Manual) 5 % (1-10) Eosinophils % (Manual) 1 % (0-3) Basophils % (Manual) 1 % (0-2) Band Neutrophils 0 % (0-8) Platelet Estimate Adequate Platelet Morphology Normal Hypochromasia 4+ Anisocytosis 1+ Microcytosis 1+ Sodium Level 141 MMOL/L (136-145) Potassium Level 2.8 MMOL/L (3.5-5.1) L Chloride Level 107 MMOL/L (98-107) Carbon Dioxide Level 23 MMOL/L (21-32) Anion Gap 11 mmol/L (5-15) Blood Urea Nitrogen 30 mg/dL (7-18) H Creatinine 1.4 MG/DL (0.55-1.30) H Estimat Glomerular Filtration Rate mL/min (>60) Glucose Level 86 MG/DL (74-106) Calcium Level 8.1 MG/DL (8.5-10.1) L Total Bilirubin 0.6 MG/DL (0.2-1.0) Direct Bilirubin 0.5 MG/DL (0.0-0.3) H Aspartate Amino Transf (AST/SGOT) 49 U/L (15-37) H Alanine Aminotransferase (ALT/SGPT) 41 U/L (12-78) Alkaline Phosphatase 119 U/L (46-116) H Troponin I 0.270 ng/mL (0.000-0.056) Total Protein 7.1 G/DL (6.4-8.2) Albumin 1.3 G/DL (3.4-5.0) L Globulin 5.8 g/dL Albumin/Globulin Ratio 0.2 (1.0-2.7) L Random Vancomycin Level 10.3 ug/mL Random Amikacin Level 12.9 ug/mL Test 12/05/18 09:20 Arterial Blood pH 7.434 (7.350-7.450) Arterial Blood Partial Pressure CO2 35.5 mmHg (35.0-45.0) Arterial Blood Partial Pressure O2 100.9 mmHg (75.0-100.0) H Arterial Blood HCO3 23.2 mmol/L (22.0-26.0) Arterial Blood Oxygen Saturation 97.5 % (95-100) Arterial Blood Base Excess -0.9 (-2-2) Aroldo Test Positive Microbiology Date/Time Source Procedure Growth Status 12/04/18 13:15 Nasal Nares Influenza Types A,B Antigen (PEEWEE) - Final Complete Height (Feet): 5 Height (Inches): 7.00 Weight (Pounds): 156 Medications Current Medications Medications (Trade) Dose Ordered Sig/Courtney Route PRN Reason Start Time Stop Time Status Last Admin Dose Admin Acetaminophen (Tylenol) 650 mg Q4H PRN ORAL fever 12/04/18 14:00 01/03/19 13:59 12/05/18 12:02 Albuterol/ Ipratropium (Albuterol/ Ipratropium) 3 ml Q4H PRN HHN Shortness of Breath 12/04/18 14:00 12/09/18 13:59 Amikacin Sulfate 1000 mg/Sodium Chloride 114 ml @ 114 mls/hr Q36H IV 12/06/18 08:00 12/13/18 07:59 Chlorhexidine Gluconate (Amna-Hex 2%) 1 applic DAILY@2000 TOPIC 12/05/18 20:00 01/04/19 19:59 Ertapenem 1 gm/ Sodium Chloride 55 ml @ 110 mls/hr Q24H IV 12/04/18 21:00 12/09/18 20:59 12/04/18 21:12 Heparin Sodium (Porcine) (Heparin 5000 units/ml) 5,000 units EVERY 12 HOURS SUBQ 12/04/18 21:00 01/03/19 20:59 12/05/18 12:04 Lorazepam (Ativan 2mg/ml 1ml) 2 mg Q2H PRN IV For Anxiety 12/04/18 14:00 12/11/18 13:59 Morphine Sulfate (Morphine Sulfate) 4 mg Q4H PRN IVP Severe Pain (Pain Scale 7-10) 12/04/18 14:00 12/11/18 13:59 Norepinephrine Bitartrate 4 mg/ Dextrose 254 ml @ 0 mls/hr Q24H IV 12/04/18 14:00 01/03/19 13:59 Ondansetron HCl (Zofran) 4 mg Q6H PRN IVP Nausea & Vomiting 12/04/18 14:00 01/03/19 13:59 Pantoprazole (Protonix) 40 mg DAILY IVP 12/05/18 09:00 01/04/19 08:59 12/05/18 09:06 Polyethylene Glycol (Miralax) 17 gm DAILYPRN PRN ORAL Constipation 12/04/18 15:05 01/03/19 15:04 Potassium Chloride 100 ml @ 100 mls/hr Q1HR IVPB 12/05/18 12:00 12/05/18 15:59 12/05/18 11:31 Sodium Chloride 1,000 ml @ 100 mls/hr Q10H IVLG 12/04/18 14:55 01/03/19 14:54 12/05/18 10:58 Vancomycin HCl (Vanco rx to dose) 1 ea DAILY PRN MISC PER PHARM 12/04/18 15:15 01/03/19 15:14 Vancomycin HCl/ Dextrose 250 ml @ 166.667 mls/hr DAILY IVPB 12/05/18 08:30 12/10/18 08:29 12/05/18 09:06 Assessment/Plan Assessment/Plan Abx: IV Vancomycin 12/04- Ertapenem 12/04- Amikacin 12/04- Assessment: Severe Sepsis- likely 2ry to PNA, r/o bacteremia, UTI. Possible Flu despite neg screen test -CXR: Bilateral diffuse interstitial and airspace infiltrates versus edema, worsening on the right over one day -Bcx p -u/a wbc 40-60, nit neg, leuk large; ucx p -sp cx p -influenza sc p Fever, improving Leukocytosis, improving Acute respiratory failure s/p intubation 12/04 ELICIA, improving COPD DM2 HTN dysphagia s/p G-tube dementia SNF resident Plan: -Continue empiric IV Vancomycin #2 -D/c amikacin and switch Ertapenem to Meropenem -Add empiric Azithromycin and Tamiflu for atypical and influenza coverage, respectively -f/u cx -Monitor CBC/CMP, temperatures -legionella ag urine -ICU, ETT care -aspiration precautions Thank you for this consultation. Will continue to follow along with you. Discussed with Jazz Wilson M.D. Dec 05, 2018 12:47
--- NOTE | 2018-12-05 14:00 | NUR ---
NURSE NOTES: Patient remained calm and comfortable. No s/sx of distress. SR on the monitor. Repositioning done. On going BT of 1 unit PRBC, no transfusion reaction noted. Still with episode of reaching ETT, still on left softwrist restraints. Restraint care done.
[2018-12-05] MEDS: Azithromycin 250mg tab ORAL SCH (14:39)
--- NOTE | 2018-12-05 16:05 | NUR ---
NURSE NOTES: Patient no s/sx of distress with oxygen saturation of 100%. Denies pain. Completed 1st unit of BT of PRBC and started 2nd unit of PRBC. No s/sx of transfusion reaction noted at this time. Sponge bath given. Afebrile. Oral care done, repositioning done.
[2018-12-05] MEDS: Meropenem 1 GM in NS 55 ML IVPB SCH (18:15)
--- NOTE | 2018-12-05 18:21 | Cardiology Report ---
APPROVED REPORT EXAM: Two-dimensional and M-mode echocardiogram with Doppler and color Doppler. INDICATION LV FUNCTION M-Mode DIMENSIONS IVSd0.6 (0.7-1.1cm)Left Atrium (MM)3.5 (1.6-4.0cm) LVDd3.8 (3.5-5.6cm)Aortic Root2.8 (2.0-3.7cm) PWd0.6 (0.7-1.1cm)Aortic Cusp Exc.2.0 (1.5-2.0cm) IVSs1.2 cm LVDs2.0 (2.5-4.0cm) PWs1.2 cm Normal left ventricular chamber size, systolic function and wall motion. Left ventricular ejection fraction estimated to be 55-60%. No evidence of left ventricular hypertrophy. No evidence of pericardial effusion. All other cardiac chamber sizes are within normal limits. Mild aortic valve sclerosis with adequate cusp excursion. Mildly thickened mitral valve leaflets with normal excursion. Mild mitral annulus and aortic root calcification. Pulmonic valve not well visualized. IVC dilated at 2.4cm without physiologic collapse suggestive of increased RA pressure. A color flow and spectral Doppler study was performed and revealed: Trace aortic regurgitation. Mitral diastolic velocities suggest reduced left ventricular relaxation c/w mild LV diastolic dysfunction (Grade I ) Trace mitral regurgitation. Trace tricuspid regurgitation. Tricuspid systolic velocities suggests peak right ventricular systolic pressure of 20mmHg
--- NOTE | 2018-12-05 18:36 | History & Physical ---
History and Physical History & Physicial Dictated for Int Med - Dr Matthews no. [id number]. ICU Roni Carson MD Dec 05, 2018 18:36
--- NOTE | 2018-12-05 18:45 | NUR ---
NURSE NOTES: Was able to insert another peripheral IV line. Completed transfusion of 2 units PRBC.
--- NOTE | 2018-12-05 19:38 | NUR ---
HAND-OFF: Report given to Christ Muniz RN. Endorsed to discontinue PICC line on left upper arm and PICC line tip for culture.
[2018-12-05] MEDS ORDERED: Dyna-Hex 2% Top Sol 2oz TOPIC SCH (20:00)
--- NOTE | 2018-12-05 20:00 | NUR ---
NURSE NOTES: Received pt in no acute distress. Asleep but arousable to voice and touch. Remains orally intubated and appears to be tolerating current vent settings of AC16 TV600 fiO2 .35 saturating 100%.Secretions mod, white, thick; chest sounds with scattered rhonchi. Afebrile; NSR. PEG intact; GTF with Jevity 1.2 running at 30ml/h with 0 residuals. FC patent, draining good amt of clear yellow urine.LEJ saline lock intact with good blood return.as well as SL on LFA ; PICC on BRADLEY with IVF of NS infusing at 100ml/h. DC'd PICC and sent tip for C&S. Infused IV on LFA. Will continue to monitor. Increase GTF to goal of 60 if tolerated
--- NOTE | 2018-12-05 20:30 | History and Physical Report ---
DATE OF ADMISSION: 12/04/2018 CHIEF COMPLAINT: The patient is a 73-year-old male, who presents with a chief complaint of altered mental status. HISTORY OF PRESENT ILLNESS: The patient is a resident of [facility]. The patient was more altered than usual according to staff at [facility]. The patient presented to [place] emergency room. The patient was found to be hypoxic. The patient also had tachypnea. The patient was admitted for respiratory failure and bilateral pneumonia. PAST MEDICAL HISTORY: Significant for, 1. Diabetes type 2. 2. History of pulmonary embolism. 3. Chronic obstructive pulmonary disease. 4. Hypertension. 5. Hypothyroidism. 6. Chronic renal failure. 7. Dysphagia. 8. Coronary artery disease, status post cardiac arrest. 9. Gout. PAST SURGICAL HISTORY: Significant for PEG placement. CURRENT MEDICATIONS: 1. Aspirin 81 mg one tab p.o. daily. 2. Diltiazem 60 mg p.o. q.8 hours. 3. DuoNeb nebulized q.6 hours p.r.n. 4. Levoxyl 25 mcg p.o. daily. ALLERGIES: No known drug allergies. SOCIAL HISTORY: The patient is single and lives at [facility] as above. The patient denies tobacco or alcohol use. REVIEW OF SYSTEMS: Unable to assess secondary to the patient's mental status. PHYSICAL EXAMINATION: VITAL SIGNS: Temperature 100.5, respirations 18, pulse 86, and blood pressure 154/51. GENERAL: The patient is a well-developed and well-nourished male, who is currently intubated and sedated. HEENT: Eyes, pupils are equal and responsive to light and accommodation. Extraocular movements are intact. NECK: Supple. No lymphadenopathy. CHEST: Diffuse wheezes bilaterally with crackles. Otherwise, clear to auscultation without wheezes or rales. CARDIOVASCULAR: Slightly tachycardic. Regular rhythm. S1 and S2 are normal without murmurs, rubs, or gallops. ABDOMEN: Soft, nontender, and nondistended. Positive bowel sounds. No evidence of hepatosplenomegaly. Currently, no rebound or guarding noted. EXTREMITIES: Negative for clubbing, cyanosis, or edema. NEUROLOGIC: Unable to assess. LABORATORY STUDIES: WBC 28.1, hemoglobin 7.9, hematocrit 24.6, and platelets 491,000. Sodium 140, potassium 3.0, chloride 101, CO2 23, BUN 33, creatinine 1.8, and glucose 96. Troponin elevated at 0.142 . BNP elevated at 2599. Arterial blood gas, pH 7.353, pCO2 40.3, pO2 281.2, bicarb 21.9, base excess -3.4, and oxygen saturation 99.5. A chest x-ray revealed bilateral interstitial and airspace disease consistent with bilateral pneumonia. ASSESSMENT: This is a 73-year-old male. 1. Altered mental status. 2. Respiratory failure. 3. Bilateral pneumonia. 4. Hypoxia. 5. Elevated troponin. 6. Acute on chronic congestive heart failure. 7. Severe anemia. 8. History of chronic obstructive pulmonary disease. 9. Hypertension. 10. Diabetes type 2. 11. Hypothyroidism. 12. Chronic renal failure. 13. Dysphagia. 14. History of coronary artery disease. TREATMENT: 1. Bilateral pneumonia/respiratory failure. Pulmonary consultation has been obtained with Dr. Isaiah Fritz. The patient is currently intubated on the mechanical ventilator. The patient has been started empirically on Tamiflu, azithromycin, and meropenem. Vancomycin has been added by Infectious Disease. We will follow recommendations of Infectious Disease and Pulmonary. 2. Elevated troponin/acute congestive heart failure. Cardiology consultation has been obtained with Dr. Pablo Amaya. 3. Chronic obstructive pulmonary disease. A Pulmonary consultation has been obtained with Dr. Isaiah Fritz as above. 4. Hypertension. The patient is currently hypotensive. 5. Diabetes type 2. The patient has been started on NovoLog sliding scale. 6. Hypothyroidism. Continue Synthroid as above. 7. Chronic renal failure. The patient is currently receiving intravenous fluids. 8. Dysphagia, status post PEG placement. Roni Carson M.D. DR: AALIYAH JOB#: [id number] CC:
--- NOTE | 2018-12-05 22:00 | NUR ---
NURSE NOTES: Awake but calm and watches TV. Bilat soft wrist restraints maintained as pt tends to be impulsive.
[2018-12-06] VITALS (24 sets, daily range): BP systolic 124–174; BP diastolic 17–97
--- NOTE | 2018-12-06 | NUR ---
NURSE NOTES: Calm, asleep. NO distress; VSS
[2018-12-06] MEDS: LORazepam Inj 2mg/ml 1ml IV PRN (03:42)
--- NOTE | 2018-12-06 03:42 | NUR ---
NURSE NOTES: Awake, rstless. Keeps triggering vent alarms with high pressure; pt biting hard on ETT. Suctioned, Ativan 2mg IVP given
--- NOTE | 2018-12-06 04:30 | NUR ---
NURSE NOTES: Calm and quiet; Complete bed bath given. No BM. Skin remains dry and intact. PIV site on left forearm patent. Good UOP. Afebrile; BP stable. Bilat soft wrist restraints continues.
[2018-12-06] MEDS: Meropenem 1 GM in NS 55 ML IVPB SCH ×3 (05:18→22:00)
[2018-12-06 05:29] LABS: HEMATOCRIT 26.8 % (42.0-52.0); HEMOGLOBIN 8.7 G/DL (14.2-18.0); MEAN CORPUSCULAR VOLUME 81 FL (80-99); PLATELET COUNT 351 K/UL (150-450); RED BLOOD COUNT 3.29 M/UL (4.70-6.10); RED CELL DISTRIBUTION WIDTH 17.3 % (11.6-14.8); WHITE BLOOD COUNT 14.4 K/UL (4.8-10.8)
[2018-12-06 05:58] LABS: ALANINE AMINOTRANSFERASE 34 U/L (12-78); ALBUMIN 1.2 G/DL (3.4-5.0); ALBUMIN/GLOBULIN RATIO 0.2 (1.0-2.7); ALKALINE PHOSPHATASE 106 U/L (46-116); ANION GAP 10 mmol/L (5-15); ASPARTATE AMINO TRANSFERASE 33 U/L (15-37); BILIRUBIN,TOTAL 0.4 MG/DL (0.2-1.0); BLOOD UREA NITROGEN 22 mg/dL (7-18); CALCIUM 7.7 MG/DL (8.5-10.1); CARBON DIOXIDE 23 MMOL/L (21-32); CHLORIDE 110 MMOL/L (98-107); CREATININE 1.2 MG/DL (0.55-1.30); PHOSPHORUS 2.7 MG/DL (2.5-4.9); SODIUM 143 MMOL/L (136-145)
--- NOTE | 2018-12-06 07:05 | NUR ---
HAND-OFF: Report given to Moses Way RN.
--- NOTE | 2018-12-06 07:15 | NUR ---
NURSE NOTES: Report received from Hector WESTBROOK. Pt sleepy but arousable, opens eyes, able to nod yes/no. Pt connected to ground support equipment fitter, SR to ST. Pt orally intubated with ETT 8, 23 cm left lipline, AC 16, TV 600, 35% fiO2, 0 PEEP. PEG tube with Jevity 1.2 TF at 50 cc/hr. Andrade intact draining clear ashley urine to gravity. EJ noted and intact LFA IV NS 2 100cc/hr. Safety measures in place with bed locked and in lowest position, side rails x3 up and bed alarm activated. Will continue to monitor and continue plan of care.
[2018-12-06] MEDS ORDERED: Amikacin 1,000 MG in NS 110 ML IV SCH (08:00)
[2018-12-06] MEDS: Pantoprazole Inj IVP SCH (08:50)
[2018-12-06] MEDS: Heparin 5000 units/ml inj SUBQ SCH ×2 (08:53→20:54)
--- NOTE | 2018-12-06 09:00 | NUR ---
NURSE NOTES: Pt suctioned several times. Secretions thick and yellow. Oxygen saturation is 100% on vent. Oral care done. Will continue to monitor.
[2018-12-06] MEDS: Azithromycin 250mg tab ORAL SCH (09:05)
--- NOTE | 2018-12-06 09:36 | NUR ---
RADIOLOGY DEPT CHEST X-RAY DONE.-P.DYE
[2018-12-06] MEDS: Vancomycin 1.5 GM/D5W 250ML IVPB SCH (09:54)
--- NOTE | 2018-12-06 10:35 | Infectious Diseases Prog Note ---
Assessment/Plan Assessment/Plan Abx: IV Vancomycin 12/04- Ertapenem 12/04- Amikacin 12/04- Assessment: Severe Sepsis- likely 2ry to PNA, r/o bacteremia, UTI. Possible Flu despite neg screen test -CXR: Bilateral diffuse interstitial and airspace infiltrates versus edema, worsening on the right over one day -Bcx NTD -u/a wbc 40-60, nit neg, leuk large; ucx 10-20 k GNR -sp cx p -influenza sc neg Fever, improving Leukocytosis, improving Acute respiratory failure s/p intubation 12/04 ELICIA, improving COPD DM2 HTN dysphagia s/p G-tube dementia SNF resident Plan: -Continue empiric IV Vancomycin #3 and Meropenem #2 -Cont empiric Azithromycin and Tamiflu #2 for atypical and influenza coverage, respectively -12/05 AMikacin and Ertapenem #2 -f/u cx -Monitor CBC/CMP, temperatures -f/u legionella ag urine -ICU, ETT care -aspiration precautions Thank you for this consultation. Will continue to follow along with you. Discussed with RN. Subjective Allergies: Coded Allergies: No Known Allergies (Unverified , 12/04/18) Subjective Tm 101 at 35% fio2 wbc improving Bcx NTD Objective Vital Signs Last 24 Hour Vital Signs Date Time Temp Pulse Resp B/P (MAP) Pulse Ox O2 Delivery O2 Flow Rate FiO2 12/06/18 10:00 99 21 129/72 (91) 100 12/06/18 09:49 98 12/06/18 09:20 101.0 12/06/18 09:00 100 21 131/69 (89) 100 12/06/18 08:55 103 27 35 12/06/18 08:00 101.6 100 21 127/65 (85) 100 12/06/18 08:00 Mechanical Ventilator 12/06/18 08:00 35 12/06/18 07:21 97 24 35 12/06/18 07:00 98 19 129/63 (85) 100 12/06/18 06:02 105 23 136/56 (82) 99 12/06/18 05:00 104 18 124/67 (86) 100 12/06/18 04:47 104 20 35 12/06/18 04:00 120 12/06/18 04:00 97.9 120 26 159/78 (105) 98 12/06/18 04:00 35 12/06/18 04:00 Mechanical Ventilator 12/06/18 03:00 94 24 149/70 (96) 99 12/06/18 02:37 90 18 35 12/06/18 02:00 94 19 134/68 (90) 97 12/06/18 01:02 93 20 35 12/06/18 01:00 91 20 148/66 (93) 100 12/06/18 00:00 Mechanical Ventilator 12/06/18 00:00 93 12/06/18 00:00 99.3 91 17 134/69 (90) 100 12/06/18 00:00 35 12/05/18 23:13 87 19 35 12/05/18 23:00 94 18 151/81 (104) 100 12/05/18 22:00 89 17 168/60 (96) 100 12/05/18 21:14 89 17 35 12/05/18 21:00 86 22 162/57 (92) 100 12/05/18 20:05 97.9 91 18 181/54 (96) 100 12/05/18 20:00 91 12/05/18 20:00 Mechanical Ventilator 12/05/18 20:00 35 12/05/18 19:14 87 16 35 12/05/18 19:00 95 20 168/70 (102) 100 12/05/18 18:00 86 20 159/72 (101) 100 12/05/18 17:08 95 22 35 12/05/18 17:00 92 22 148/85 (106) 100 12/05/18 17:00 84 19 174/68 (103) 100 12/05/18 16:00 98.2 84 19 168/51 (90) 100 12/05/18 16:00 88 19 174/68 (103) 100 12/05/18 16:00 Mechanical Ventilator 12/05/18 16:00 50 12/05/18 16:00 35 12/05/18 15:13 88 22 35 12/05/18 15:00 84 19 168/51 (90) 100 12/05/18 14:00 98.9 88 18 150/61 (90) 100 12/05/18 13:43 158/65 12/05/18 13:05 93 21 35 12/05/18 13:00 97.9 90 20 143/41 (75) 100 12/05/18 12:00 Mechanical Ventilator 12/05/18 12:00 96 12/05/18 12:00 100.5 86 18 154/51 (85) 100 12/05/18 12:00 35 12/05/18 11:00 70 19 158/65 (96) 100 12/05/18 10:45 100 28 35 Height (Feet): 5 Height (Inches): 7.00 Weight (Pounds): 160 Objective Status: awake Condition: critical HEENT: atraumatic Neck: full ROM Lungs: clear Heart: HR/BP stable Abdomen: soft, active bowel sounds Extremities: no C/C/E Decubiti: location Microbiology Date/Time Source Procedure Growth Status 12/04/18 12:20 Blood Blood Culture - Preliminary NO GROWTH AFTER 24 HOURS Resulted 12/04/18 12:05 Blood Blood Culture - Preliminary NO GROWTH AFTER 24 HOURS Resulted 12/04/18 13:15 Nasal Nares Influenza Types A,B Antigen (PEEWEE) - Final Complete 12/04/18 12:05 Nasal Nares MRSA Culture - Final Staphylococcus Aureus - Mrsa Complete 12/04/18 12:05 Urine,Clean Catch Urine Culture - Preliminary Gram Negative Bacillus 1 Resulted Laboratory Tests Test 12/05/18 14:40 12/06/18 04:20 12/06/18 09:09 Urine Legionella Antigen Pending White Blood Count 14.4 K/UL (4.8-10.8) H Red Blood Count 3.29 M/UL (4.70-6.10) L Hemoglobin 8.7 G/DL (14.2-18.0) #L Hematocrit 26.8 % (42.0-52.0) L Mean Corpuscular Volume 81 FL (80-99) Mean Corpuscular Hemoglobin 26.3 PG (27.0-31.0) L Mean Corpuscular Hemoglobin Concent 32.4 G/DL (32.0-36.0) Red Cell Distribution Width 17.3 % (11.6-14.8) H Platelet Count 351 K/UL (150-450) Mean Platelet Volume 7.1 FL (6.5-10.1) Neutrophils (%) (Auto) % (45.0-75.0) Lymphocytes (%) (Auto) % (20.0-45.0) Monocytes (%) (Auto) % (1.0-10.0) Eosinophils (%) (Auto) % (0.0-3.0) Basophils (%) (Auto) % (0.0-2.0) Differential Total Cells Counted 100 Neutrophils % (Manual) 89 % (45-75) H Lymphocytes % (Manual) 8 % (20-45) L Monocytes % (Manual) 2 % (1-10) Eosinophils % (Manual) 1 % (0-3) Basophils % (Manual) 0 % (0-2) Band Neutrophils 0 % (0-8) Platelet Estimate Adequate Platelet Morphology Normal Hypochromasia 2+ Anisocytosis 1+ Spherocytes 1+ Sodium Level 143 MMOL/L (136-145) Potassium Level 3.0 MMOL/L (3.5-5.1) L Chloride Level 110 MMOL/L (98-107) H Carbon Dioxide Level 23 MMOL/L (21-32) Anion Gap 10 mmol/L (5-15) Blood Urea Nitrogen 22 mg/dL (7-18) H Creatinine 1.2 MG/DL (0.55-1.30) Estimat Glomerular Filtration Rate mL/min (>60) Glucose Level 122 MG/DL (74-106) H Calcium Level 7.7 MG/DL (8.5-10.1) L Phosphorus Level 2.7 MG/DL (2.5-4.9) Magnesium Level 1.6 MG/DL (1.8-2.4) L Total Bilirubin 0.4 MG/DL (0.2-1.0) Aspartate Amino Transf (AST/SGOT) 33 U/L (15-37) Alanine Aminotransferase (ALT/SGPT) 34 U/L (12-78) Alkaline Phosphatase 106 U/L (46-116) Total Protein 6.8 G/DL (6.4-8.2) Albumin 1.2 G/DL (3.4-5.0) L Globulin 5.6 g/dL Albumin/Globulin Ratio 0.2 (1.0-2.7) L Arterial Blood pH 7.418 (7.350-7.450) Arterial Blood Partial Pressure CO2 37.7 mmHg (35.0-45.0) Arterial Blood Partial Pressure O2 93.4 mmHg (75.0-100.0) Arterial Blood HCO3 23.8 mmol/L (22.0-26.0) Arterial Blood Oxygen Saturation 96.8 % (95-100) Arterial Blood Base Excess -0.6 (-2-2) Aroldo Test Positive Current Medications Medications (Trade) Dose Ordered Sig/Courtney Route PRN Reason Start Time Stop Time Status Last Admin Dose Admin Acetaminophen (Tylenol) 650 mg Q4H PRN ORAL fever 12/04/18 14:00 01/03/19 13:59 12/06/18 08:50 Albuterol/ Ipratropium (Albuterol/ Ipratropium) 3 ml Q4H PRN HHN Shortness of Breath 12/04/18 14:00 12/09/18 13:59 Azithromycin (Zithromax) 500 mg DAILY ORAL 12/05/18 14:00 12/12/18 13:59 12/06/18 09:05 Heparin Sodium (Porcine) (Heparin 5000 units/ml) 5,000 units EVERY 12 HOURS SUBQ 12/04/18 21:00 01/03/19 20:59 12/06/18 08:53 Lorazepam (Ativan 2mg/ml 1ml) 2 mg Q2H PRN IV For Anxiety 12/04/18 14:00 12/11/18 13:59 12/06/18 03:42 Meropenem 1 gm/ Sodium Chloride 55 ml @ 110 mls/hr Q8HR IVPB 12/06/18 14:00 12/11/18 13:59 Morphine Sulfate (Morphine Sulfate) 4 mg Q4H PRN IVP Severe Pain (Pain Scale 7-10) 12/04/18 14:00 12/11/18 13:59 Norepinephrine Bitartrate 4 mg/ Dextrose 254 ml @ 0 mls/hr Q24H IV 12/04/18 14:00 01/03/19 13:59 Ondansetron HCl (Zofran) 4 mg Q6H PRN IVP Nausea & Vomiting 12/04/18 14:00 01/03/19 13:59 Oseltamivir Phosphate (Tamiflu) 30 mg TWICE A DAY ORAL 12/05/18 18:00 12/10/18 17:59 12/06/18 08:51 Pantoprazole (Protonix) 40 mg DAILY IVP 12/05/18 09:00 01/04/19 08:59 12/06/18 08:50 Polyethylene Glycol (Miralax) 17 gm DAILYPRN PRN ORAL Constipation 12/04/18 15:05 01/03/19 15:04 Sodium Chloride 1,000 ml @ 100 mls/hr Q10H IVLG 12/04/18 14:55 01/03/19 14:54 12/06/18 03:21 Vancomycin HCl (Vanco rx to dose) 1 ea DAILY PRN MISC PER PHARM 12/04/18 15:15 01/03/19 15:14 Vancomycin HCl/ Dextrose 250 ml @ 125 mls/hr Q24H IVPB 12/06/18 09:00 12/11/18 08:59 12/06/18 09:54 Jazz Alexander M.D. Dec 06, 2018 10:35
--- NOTE | 2018-12-06 10:38 | Pulmonolgy Critical Care Note ---
Critical Care - Asmt/Plan Problems: (1) Acute respiratory failure (2) Septic shock (3) Hypothyroidism (4) History of hypertension (5) Feeding by G-tube Respiratory: monitor respiratory rate, adjust FIO2, CXR Cardiac: continue to monitor HR/BP Renal: F/U I&O, decrease IV fluid, check electrolytes, other - supplement Mg and K Infectious Disease: check cultures, continue antibiotics Gastrointestinal: continue feedings/current rate Endocrine: check TSH, check HgA1C Neurologic: PRN Ativan Affect: PRN ativan Disposition: keep in ICU Time Spent (Minutes): 40 Notes Reviewed: cardio Discussed with: nurses, consultants, case work aideonline project manager - Objective Last 24 Hour Vital Signs Date Time Temp Pulse Resp B/P (MAP) Pulse Ox O2 Delivery O2 Flow Rate FiO2 12/06/18 10:00 99 21 129/72 (91) 100 12/06/18 09:49 98 12/06/18 09:20 101.0 12/06/18 09:00 100 21 131/69 (89) 100 12/06/18 08:55 103 27 35 12/06/18 08:00 101.6 100 21 127/65 (85) 100 12/06/18 08:00 Mechanical Ventilator 12/06/18 08:00 35 12/06/18 07:21 97 24 35 12/06/18 07:00 98 19 129/63 (85) 100 12/06/18 06:02 105 23 136/56 (82) 99 12/06/18 05:00 104 18 124/67 (86) 100 12/06/18 04:47 104 20 35 12/06/18 04:00 120 12/06/18 04:00 97.9 120 26 159/78 (105) 98 12/06/18 04:00 35 12/06/18 04:00 Mechanical Ventilator 12/06/18 03:00 94 24 149/70 (96) 99 12/06/18 02:37 90 18 35 12/06/18 02:00 94 19 134/68 (90) 97 12/06/18 01:02 93 20 35 12/06/18 01:00 91 20 148/66 (93) 100 12/06/18 00:00 Mechanical Ventilator 12/06/18 00:00 93 12/06/18 00:00 99.3 91 17 134/69 (90) 100 12/06/18 00:00 35 12/05/18 23:13 87 19 35 12/05/18 23:00 94 18 151/81 (104) 100 12/05/18 22:00 89 17 168/60 (96) 100 12/05/18 21:14 89 17 35 12/05/18 21:00 86 22 162/57 (92) 100 12/05/18 20:05 97.9 91 18 181/54 (96) 100 12/05/18 20:00 91 12/05/18 20:00 Mechanical Ventilator 12/05/18 20:00 35 12/05/18 19:14 87 16 35 12/05/18 19:00 95 20 168/70 (102) 100 12/05/18 18:00 86 20 159/72 (101) 100 12/05/18 17:08 95 22 35 12/05/18 17:00 92 22 148/85 (106) 100 12/05/18 17:00 84 19 174/68 (103) 100 12/05/18 16:00 98.2 84 19 168/51 (90) 100 12/05/18 16:00 88 19 174/68 (103) 100 12/05/18 16:00 Mechanical Ventilator 12/05/18 16:00 50 12/05/18 16:00 35 12/05/18 15:13 88 22 35 12/05/18 15:00 84 19 168/51 (90) 100 12/05/18 14:00 98.9 88 18 150/61 (90) 100 12/05/18 13:43 158/65 12/05/18 13:05 93 21 35 12/05/18 13:00 97.9 90 20 143/41 (75) 100 12/05/18 12:00 Mechanical Ventilator 12/05/18 12:00 96 12/05/18 12:00 100.5 86 18 154/51 (85) 100 12/05/18 12:00 35 12/05/18 11:00 70 19 158/65 (96) 100 12/05/18 10:45 100 28 35 Status: awake Condition: critical HEENT: atraumatic Heart: HR/BP stable Abdomen: soft, active bowel sounds Extremities: no C/C/E, edema Decubiti: location Micro: Microbiology Date/Time Source Procedure Growth Status 12/04/18 12:20 Blood Blood Culture - Preliminary NO GROWTH AFTER 24 HOURS Resulted 12/04/18 12:05 Blood Blood Culture - Preliminary NO GROWTH AFTER 24 HOURS Resulted 12/04/18 13:15 Nasal Nares Influenza Types A,B Antigen (PEEWEE) - Final Complete 12/04/18 12:05 Nasal Nares MRSA Culture - Final Staphylococcus Aureus - Mrsa Complete 12/04/18 12:05 Urine,Clean Catch Urine Culture - Preliminary Gram Negative Bacillus 1 Resulted Accucheck: 101 Critical Care - Subjective ROS Limited/Unobtainable: Yes Condition: critical EKG Rhythm: Sinus Rhythm FI02: 35 Vent Support Breath Rate: 16 Vent Support Mode: AC Vent Tidal Volume: 600 Sputum Amount: Scant PEEP: 0.0 PIP: 33 Tube Feeding Amount: 50 I&O: Intake and Output 12/05/18 12/06/18 19:00 07:00 Intake Total 2198.334 ml 1585 ml Output Total 700 ml 870 ml Balance 1498.334 ml 715 ml Free Water 50 ml IV Total 1988.334 ml 1105 ml Tube Feeding 160 ml 480 ml Output Urine Total 700 ml 870 ml CXR: ET in correct position still bilateral infiltrate ET-Tube: 8.0 ET Position: 23 Labs: Laboratory Tests Test 12/05/18 14:40 12/06/18 04:20 12/06/18 09:09 Urine Legionella Antigen Pending White Blood Count 14.4 K/UL (4.8-10.8) H Red Blood Count 3.29 M/UL (4.70-6.10) L Hemoglobin 8.7 G/DL (14.2-18.0) #L Hematocrit 26.8 % (42.0-52.0) L Mean Corpuscular Volume 81 FL (80-99) Mean Corpuscular Hemoglobin 26.3 PG (27.0-31.0) L Mean Corpuscular Hemoglobin Concent 32.4 G/DL (32.0-36.0) Red Cell Distribution Width 17.3 % (11.6-14.8) H Platelet Count 351 K/UL (150-450) Mean Platelet Volume 7.1 FL (6.5-10.1) Neutrophils (%) (Auto) % (45.0-75.0) Lymphocytes (%) (Auto) % (20.0-45.0) Monocytes (%) (Auto) % (1.0-10.0) Eosinophils (%) (Auto) % (0.0-3.0) Basophils (%) (Auto) % (0.0-2.0) Differential Total Cells Counted 100 Neutrophils % (Manual) 89 % (45-75) H Lymphocytes % (Manual) 8 % (20-45) L Monocytes % (Manual) 2 % (1-10) Eosinophils % (Manual) 1 % (0-3) Basophils % (Manual) 0 % (0-2) Band Neutrophils 0 % (0-8) Platelet Estimate Adequate Platelet Morphology Normal Hypochromasia 2+ Anisocytosis 1+ Spherocytes 1+ Sodium Level 143 MMOL/L (136-145) Potassium Level 3.0 MMOL/L (3.5-5.1) L Chloride Level 110 MMOL/L (98-107) H Carbon Dioxide Level 23 MMOL/L (21-32) Anion Gap 10 mmol/L (5-15) Blood Urea Nitrogen 22 mg/dL (7-18) H Creatinine 1.2 MG/DL (0.55-1.30) Estimat Glomerular Filtration Rate mL/min (>60) Glucose Level 122 MG/DL (74-106) H Calcium Level 7.7 MG/DL (8.5-10.1) L Phosphorus Level 2.7 MG/DL (2.5-4.9) Magnesium Level 1.6 MG/DL (1.8-2.4) L Total Bilirubin 0.4 MG/DL (0.2-1.0) Aspartate Amino Transf (AST/SGOT) 33 U/L (15-37) Alanine Aminotransferase (ALT/SGPT) 34 U/L (12-78) Alkaline Phosphatase 106 U/L (46-116) Total Protein 6.8 G/DL (6.4-8.2) Albumin 1.2 G/DL (3.4-5.0) L Globulin 5.6 g/dL Albumin/Globulin Ratio 0.2 (1.0-2.7) L Arterial Blood pH 7.418 (7.350-7.450) Arterial Blood Partial Pressure CO2 37.7 mmHg (35.0-45.0) Arterial Blood Partial Pressure O2 93.4 mmHg (75.0-100.0) Arterial Blood HCO3 23.8 mmol/L (22.0-26.0) Arterial Blood Oxygen Saturation 96.8 % (95-100) Arterial Blood Base Excess -0.6 (-2-2) Aroldo Test Positive Isaiah Fritz MD Dec 06, 2018 10:38
--- NOTE | 2018-12-06 10:48 | NUR ---
NURSE NOTES: Dr Fritz here to see pt. Ordered sputum culture. Will continue to monitor.
--- NOTE | 2018-12-06 11:41 | Diagnostic Imaging Report ---
Indication: Dyspnea Technique: One view of the chest Comparison: 12/05/2018 Findings: Stable satisfactory position of endotracheal tube. Bilateral interstitial and airspace infiltrates versus edema persists, largely unchanged. Pleural fluid on the right is unchanged. Impression: Unchanged, over one day, findings as above.
[2018-12-06] MEDS ORDERED: Potassium Chloride 40 MEQ in Sodium Chloride 550 ML IVPB SCH (12:00)
--- NOTE | 2018-12-06 12:45 | NUR ---
NURSE NOTES: Dr Alexander here to see pt. No new orders. No acute distress. Will continue to monitor.
--- NOTE | 2018-12-06 14:00 | NUR ---
NURSE NOTES: Pt turned and repositioned. Suctioned pt. Oral care done. No acute distress. Will continue to monitor.
--- NOTE | 2018-12-06 16:28 | Internal Med Progress Note ---
Subjective Date of Service: Dec 06, 2018 Physician Name Carson,Roni Attending Physician Isaiah Fritz MD Current Medications Medications (Trade) Dose Ordered Sig/Courtney Route PRN Reason Start Time Stop Time Status Last Admin Dose Admin Acetaminophen (Tylenol) 650 mg Q4H PRN ORAL fever 12/04/18 14:00 01/03/19 13:59 12/06/18 08:50 Albuterol/ Ipratropium (Albuterol/ Ipratropium) 3 ml Q4H PRN HHN Shortness of Breath 12/04/18 14:00 12/09/18 13:59 Azithromycin (Zithromax) 500 mg DAILY ORAL 12/05/18 14:00 12/12/18 13:59 12/06/18 09:05 Heparin Sodium (Porcine) (Heparin 5000 units/ml) 5,000 units EVERY 12 HOURS SUBQ 12/04/18 21:00 01/03/19 20:59 12/06/18 08:53 Lorazepam (Ativan 2mg/ml 1ml) 2 mg Q2H PRN IV For Anxiety 12/04/18 14:00 12/11/18 13:59 12/06/18 03:42 Meropenem 1 gm/ Sodium Chloride 55 ml @ 110 mls/hr Q8HR IVPB 12/06/18 14:00 12/11/18 13:59 12/06/18 14:16 Morphine Sulfate (Morphine Sulfate) 4 mg Q4H PRN IVP Severe Pain (Pain Scale 7-10) 12/04/18 14:00 12/11/18 13:59 Norepinephrine Bitartrate 4 mg/ Dextrose 254 ml @ 0 mls/hr Q24H IV 12/04/18 14:00 01/03/19 13:59 Oseltamivir Phosphate (Tamiflu) 30 mg TWICE A DAY ORAL 12/05/18 18:00 12/10/18 17:59 12/06/18 08:51 Pantoprazole (Protonix) 40 mg DAILY IVP 12/05/18 09:00 01/04/19 08:59 12/06/18 08:50 Vancomycin HCl (Vanco rx to dose) 1 ea DAILY PRN MISC PER PHARM 12/04/18 15:15 01/03/19 15:14 Vancomycin HCl/ Dextrose 250 ml @ 125 mls/hr Q24H IVPB 12/06/18 09:00 12/11/18 08:59 12/06/18 09:54 Allergies: Coded Allergies: No Known Allergies (Unverified , 12/04/18) ROS Limited/Unobtainable: Yes Subjective 73 YO M admitted with respiratory failure. Now pneumonia. Intubated and sedated. ICU. Cover for Int Garret-Dr Matthews Objective Last Vital Signs Date Time Temp Pulse Resp B/P (MAP) Pulse Ox O2 Delivery O2 Flow Rate FiO2 12/06/18 15:00 88 19 144/76 (98) 100 12/06/18 14:51 35 12/06/18 12:00 100.0 12/06/18 12:00 Mechanical Ventilator 12/04/18 16:00 4.0 General Appearance: WD/WN, no apparent distress, lethargic EENT: PERRL/EOMI, normal ENT inspection Neck: non-tender, normal alignment, supple, normal inspection Cardiovascular: normal peripheral pulses, normal rate, regular rhythm, no gallop/murmur, no JVD Respiratory/Chest: chest wall non-tender, respiratory distress, crackles/rales , rhonchi - bilaterally, expiratory wheezing Abdomen: normal bowel sounds, non tender, soft, no organomegaly, no mass Extremities: normal range of motion, non-tender Skin: normal pigmentation, warm/dry Laboratory Tests Test 12/06/18 04:20 12/06/18 09:09 White Blood Count 14.4 K/UL (4.8-10.8) H Red Blood Count 3.29 M/UL (4.70-6.10) L Hemoglobin 8.7 G/DL (14.2-18.0) #L Hematocrit 26.8 % (42.0-52.0) L Mean Corpuscular Volume 81 FL (80-99) Mean Corpuscular Hemoglobin 26.3 PG (27.0-31.0) L Mean Corpuscular Hemoglobin Concent 32.4 G/DL (32.0-36.0) Red Cell Distribution Width 17.3 % (11.6-14.8) H Platelet Count 351 K/UL (150-450) Mean Platelet Volume 7.1 FL (6.5-10.1) Neutrophils (%) (Auto) % (45.0-75.0) Lymphocytes (%) (Auto) % (20.0-45.0) Monocytes (%) (Auto) % (1.0-10.0) Eosinophils (%) (Auto) % (0.0-3.0) Basophils (%) (Auto) % (0.0-2.0) Differential Total Cells Counted 100 Neutrophils % (Manual) 89 % (45-75) H Lymphocytes % (Manual) 8 % (20-45) L Monocytes % (Manual) 2 % (1-10) Eosinophils % (Manual) 1 % (0-3) Basophils % (Manual) 0 % (0-2) Band Neutrophils 0 % (0-8) Platelet Estimate Adequate Platelet Morphology Normal Hypochromasia 2+ Anisocytosis 1+ Spherocytes 1+ Sodium Level 143 MMOL/L (136-145) Potassium Level 3.0 MMOL/L (3.5-5.1) L Chloride Level 110 MMOL/L (98-107) H Carbon Dioxide Level 23 MMOL/L (21-32) Anion Gap 10 mmol/L (5-15) Blood Urea Nitrogen 22 mg/dL (7-18) H Creatinine 1.2 MG/DL (0.55-1.30) Estimat Glomerular Filtration Rate mL/min (>60) Glucose Level 122 MG/DL (74-106) H Calcium Level 7.7 MG/DL (8.5-10.1) L Phosphorus Level 2.7 MG/DL (2.5-4.9) Magnesium Level 1.6 MG/DL (1.8-2.4) L Total Bilirubin 0.4 MG/DL (0.2-1.0) Aspartate Amino Transf (AST/SGOT) 33 U/L (15-37) Alanine Aminotransferase (ALT/SGPT) 34 U/L (12-78) Alkaline Phosphatase 106 U/L (46-116) Total Protein 6.8 G/DL (6.4-8.2) Albumin 1.2 G/DL (3.4-5.0) L Globulin 5.6 g/dL Albumin/Globulin Ratio 0.2 (1.0-2.7) L Arterial Blood pH 7.418 (7.350-7.450) Arterial Blood Partial Pressure CO2 37.7 mmHg (35.0-45.0) Arterial Blood Partial Pressure O2 93.4 mmHg (75.0-100.0) Arterial Blood HCO3 23.8 mmol/L (22.0-26.0) Arterial Blood Oxygen Saturation 96.8 % (95-100) Arterial Blood Base Excess -0.6 (-2-2) Aroldo Test Positive Microbiology Date/Time Source Procedure Growth Status 12/04/18 12:20 Blood Blood Culture - Preliminary NO GROWTH AFTER 24 HOURS Resulted 12/04/18 12:05 Blood Blood Culture - Preliminary NO GROWTH AFTER 24 HOURS Resulted 12/04/18 13:15 Nasal Nares Influenza Types A,B Antigen (PEEWEE) - Final Complete 12/04/18 12:05 Nasal Nares MRSA Culture - Final Staphylococcus Aureus - Mrsa Complete 12/04/18 12:05 Urine,Clean Catch Urine Culture - Preliminary Gram Negative Bacillus 1 Resulted 12/04/18 12:05 Rectum VRE Culture - Final Enterococcus Faecium - Vre Enterococcus Faecalis - Vre Complete 12/04/18 12:05 Rectum - Final NO CARBAPENEM-RESISTANT ENTEROBACTERI... Complete Intake and Output 12/05/18 12/06/18 19:00 07:00 Intake Total 2198.334 ml 1585 ml Output Total 700 ml 870 ml Balance 1498.334 ml 715 ml Free Water 50 ml IV Total 1988.334 ml 1105 ml Tube Feeding 160 ml 480 ml Output Urine Total 700 ml 870 ml Assessment/Plan Problem List: (1) Pneumonia Assessment & Plan: See ID note. Continue meropenem, vanco tamiflu and azithromycin. (2) Anemia Assessment & Plan: S/P tansfusion 2 units PRBC 12/05/18. (3) Elevated troponin Assessment & Plan: See cardiology consult. (4) COPD (chronic obstructive pulmonary disease) (5) HTN (hypertension) Assessment & Plan: Currently on levophed (6) CHF (congestive heart failure) Assessment & Plan: LVEF=55-60% (7) Diabetes mellitus, type II (8) Chronic renal failure Assessment & Plan: See nephrology note. (9) Dysphagia (10) CAD (coronary artery disease) (11) Acute respiratory failure (12) Hypothyroidism Status: not improved Roni Carson MD Dec 06, 2018 16:28
--- NOTE | 2018-12-06 18:27 | NUR ---
NURSE NOTES: Spoke to Dr Cevallos regarding consult. ordered stat troponin and bnp, iv lasix and ekg in am. No acute distress. Will continue to monitor.
--- NOTE | 2018-12-06 19:20 | NUR ---
HAND-OFF: Report given to Linda WESTBROOK.
--- NOTE | 2018-12-06 19:30 | NUR ---
NURSE NOTES: Received report from Seamus RN. Pt awake,alert, opens eyes, able to nod yes/no. Pt orally intubated with ETT 8, 23 cm left lip line, AC 16, TV 600, 35% fiO2, 0 PEEP. PEG tube with Jevity 1.2 TF at 50 cc/hr. Andrade intact draining clear ashley urine to gravity. EJ noted and intact LFA intact. bilateral soft wrist restraint checked. Safety measures in place with bed locked and in lowest position, side rails x3 up and bed alarm activated. Will continue to monitor and continue plan of care.
--- NOTE | 2018-12-06 20:00 | NUR ---
NURSE NOTES: Temp 99.8 axiliary, cooling measure provided. Will continue to monitor patient.
--- NOTE | 2018-12-06 20:20 | NUR ---
CASE MANAGEMENT: REVIEW 73/M DELMIA FROM [facility] CC: AMS SI: ALOC . SEPSIS T 104.0 HR 128 RR 26 BP 71/46 SAT 94% MECH VENT FIO2 50 WBC 28.1 H/H 7.9/24.6 IS: ZOSYN IV X1 VANCO IV X1 NS IVF BOLUS X1 PATIENT ADMITTED TO ICU 12/04/2018 DCP: PATIENT IS FROM [facility]
--- NOTE | 2018-12-06 22:00 | NUR ---
NURSE NOTES: Repositioned patient in bed. With X1 episode of small BM, kept clean and dry. Oral care provided. Will continue plan of care.
[2018-12-07] VITALS (24 sets, daily range): BP systolic 123–170; BP diastolic 39–97
--- NOTE | 2018-12-07 00:15 | NUR ---
HAND-OFF: Report given to DARIANA Romo. Patient temp 99.2 Axillary continue cooling measure.
--- NOTE | 2018-12-07 00:25 | NUR ---
NURSE NOTES: Report received from DARIANA Mckeon. Pt sleepy but arousable, opens eyes, able to nod yes/no. Pt connected to secured entrance monitor, SR to ST. Pt orally intubated with ETT 8, 23 cm left lipline, AC 16, TV 600, 35% fiO2, 0 PEEP. PEG tube with Jevity 1.2 TF at 60 cc/hr at goal. Andrade intact draining clear ashley urine to gravity. Left EJ 18G noted and intact, LFA 18G TKO. Bilateral wrists soft restraints noted, no adverse reaction. Safety measures in place with bed locked and in lowest position, side rails x3 up and bed alarm activated. Will continue to monitor and continue plan of care.
--- NOTE | 2018-12-07 02:00 | NUR ---
NURSE NOTES: Pt's resting in bed, eyes closed, VS stable, in no acute distress. Will continue to monitor.
--- NOTE | 2018-12-07 04:00 | NUR ---
NURSE NOTES: Pt's resting in bed, asleep with eyes closed, in no acute distress. VS stable. Will continue to monitor.
[2018-12-07] MEDS: Meropenem 1 GM in NS 55 ML IVPB SCH ×3 (05:54→21:37)
--- NOTE | 2018-12-07 06:00 | NUR ---
NURSE NOTES: Pt's resting in bed, asleep with eyes closed, in no acute distress. VS stable. Will continue to monitor.
[2018-12-07 06:55] LABS: ALANINE AMINOTRANSFERASE 30 U/L (12-78); ALBUMIN 1.3 G/DL (3.4-5.0); ALBUMIN/GLOBULIN RATIO 0.2 (1.0-2.7); ALKALINE PHOSPHATASE 99 U/L (46-116); ANION GAP 11 mmol/L (5-15); ASPARTATE AMINO TRANSFERASE 24 U/L (15-37); BILIRUBIN,TOTAL 0.3 MG/DL (0.2-1.0); BLOOD UREA NITROGEN 17 mg/dL (7-18); CALCIUM 8.3 MG/DL (8.5-10.1); CARBON DIOXIDE 26 MMOL/L (21-32); CHLORIDE 110 MMOL/L (98-107); CREATININE 1.1 MG/DL (0.55-1.30); PHOSPHORUS 3.2 MG/DL (2.5-4.9); SODIUM 146 MMOL/L (136-145)
[2018-12-07 07:00] LABS: BASOPHILS % (AUTO) 0.6 % (0.0-2.0); HEMATOCRIT 25.5 % (42.0-52.0); HEMOGLOBIN 8.3 G/DL (14.2-18.0); LYMPHOCYTES % (AUTO) 8.2 % (20.0-45.0); MEAN CORPUSCULAR VOLUME 81 FL (80-99); MONOCYTES % (AUTO) 3.7 % (1.0-10.0); NEUTROPHILS % (AUTO) 84.5 % (45.0-75.0); PLATELET COUNT 363 K/UL (150-450); RED BLOOD COUNT 3.15 M/UL (4.70-6.10); RED CELL DISTRIBUTION WIDTH 17.1 % (11.6-14.8); WHITE BLOOD COUNT 13.9 K/UL (4.8-10.8)
--- NOTE | 2018-12-07 07:30 | NUR ---
HAND-OFF: Report given to DARIANA Soto.
--- NOTE | 2018-12-07 07:31 | NUR ---
Received pt on current vent settings. Pt is tolerating well. Pt has copious amounts of secretions and needs frequent sxn. Tube is secure and in place. ALarms are on and audible. Will continue to monitor. Addendum: 12/07/18 at 0732 by GIFTY GLOVER RT Amended: Links added.
--- NOTE | 2018-12-07 08:00 | NUR ---
NURSE NOTES: Received patient agitated, constantly trying to reach for tubes. Bilateral restraints on, no discoloration or swelling noted related to restraints. Active range of motion intact. Cardia monitor showing SR. Patient is intubated ETT8.0/23 cm lip line. AC 16 VT 600 FiO2 35% No peep. Lung sounds diminished bilaterally. Patient has a G tube. Jevity 1.2 at 60 cc/hr. No residual. Tolerating well. Round, non tender abdomen. Hypoactive bowel sounds on all 4 quadrants. Skin intact. L EJ 18, L forearm 18. Potassium and sodium reported to Dr. Fritz. Will continue to monitor patient. HOB elevated, call light within reach, bed on lowest position. Will continue plan of care.
--- NOTE | 2018-12-07 08:54 | NUR ---
RADIOLOGY DEPT CHEST X-RAY DONE.-P.DYE
[2018-12-07] MEDS: Vancomycin 1.5 GM/D5W 250ML IVPB SCH (09:32)
[2018-12-07] MEDS: Azithromycin 250mg tab ORAL SCH (09:32)
[2018-12-07] MEDS: Pantoprazole Inj IVP SCH (09:33)
[2018-12-07] MEDS: Heparin 5000 units/ml inj SUBQ SCH ×2 (09:34→20:23)
--- NOTE | 2018-12-07 09:51 | Pulmonolgy Critical Care Note ---
Critical Care - Asmt/Plan Problems: (1) Acute respiratory failure (2) Septic shock (3) Hypothyroidism (4) History of hypertension (5) Feeding by G-tube Respiratory: monitor respiratory rate, adjust FIO2, CXR Cardiac: continue to monitor HR/BP Renal: F/U I&O, keep IV fluid, check electrolytes Infectious Disease: check cultures, continue antibiotics Gastrointestinal: continue feedings/current rate Endocrine: monitor blood sugar Hematologic: monitor H/H, transfuse if hgb<8.5 Neurologic: PRN Ativan, keep patient comfortable Affect: PRN ativan Prophylaxis: Protonix Disposition: keep in ICU Time Spent (Minutes): 40 Notes Reviewed: laborer concrete paving, cardio Discussed with: nurses, consultants, special education case managerused car manager - Objective Last 24 Hour Vital Signs Date Time Temp Pulse Resp B/P (MAP) Pulse Ox O2 Delivery O2 Flow Rate FiO2 12/07/18 08:00 84 20 160/71 (100) 100 12/07/18 08:00 Mechanical Ventilator 12/07/18 08:00 35 12/07/18 07:30 93 26 35 12/07/18 07:00 90 20 155/90 (111) 100 12/07/18 06:00 99.2 82 20 162/85 (110) 100 12/07/18 05:25 88 21 35 12/07/18 05:00 90 20 158/78 (104) 100 12/07/18 04:00 90 20 154/80 (104) 100 12/07/18 04:00 94 12/07/18 04:00 35 12/07/18 04:00 Mechanical Ventilator 12/07/18 03:10 92 27 35 12/07/18 03:00 90 20 152/87 (108) 100 12/07/18 02:00 99.2 87 20 150/80 (103) 100 12/07/18 01:10 88 23 35 12/07/18 01:00 87 20 155/87 (109) 100 12/07/18 00:00 Mechanical Ventilator 12/07/18 00:00 35 12/07/18 00:00 86 12/07/18 00:00 99.2 90 20 166/76 (106) 100 12/06/18 23:15 90 23 35 12/06/18 23:00 83 20 158/97 (117) 100 12/06/18 22:00 98.9 83 20 147/82 (103) 100 12/06/18 21:12 91 19 35 12/06/18 21:00 90 12 146/79 (101) 100 12/06/18 20:00 93 12/06/18 20:00 99.8 91 19 150/78 (102) 100 12/06/18 20:00 Mechanical Ventilator 12/06/18 20:00 35 12/06/18 19:00 95 12 141/17 (58) 100 12/06/18 18:59 95 24 35 12/06/18 18:02 101.0 12/06/18 18:00 76 20 128/68 (88) 100 12/06/18 17:26 50 12/06/18 17:12 97 26 35 12/06/18 17:00 89 20 150/93 (112) 100 12/06/18 16:00 Mechanical Ventilator 12/06/18 16:00 81 12/06/18 16:00 35 12/06/18 16:00 100.0 88 19 174/68 (103) 100 12/06/18 15:00 88 19 144/76 (98) 100 12/06/18 14:51 88 17 35 12/06/18 14:00 88 19 131/70 (90) 100 12/06/18 14:00 129/75 12/06/18 13:00 89 18 129/75 (93) 100 12/06/18 12:30 92 21 35 12/06/18 12:00 100.0 92 20 126/72 (90) 100 12/06/18 12:00 35 12/06/18 12:00 93 12/06/18 12:00 Mechanical Ventilator 12/06/18 11:00 98 20 128/66 (86) 100 12/06/18 10:57 96 24 35 12/06/18 10:00 99 21 129/72 (91) 100 Status: sedated Condition: critical Lungs: chest wall tender Heart: HR/BP stable, regular Abdomen: non-tender, active bowel sounds Extremities: no C/C/E, edema Decubiti: location, stage Micro: Microbiology Date/Time Source Procedure Growth Status 12/04/18 12:20 Blood Blood Culture - Preliminary NO GROWTH AFTER 48 HOURS Resulted 12/04/18 12:05 Blood Blood Culture - Preliminary NO GROWTH AFTER 48 HOURS Resulted 12/06/18 12:00 Sputum Induced Gram Stain Pending Resulted 12/06/18 12:00 Sputum Induced Sputum Culture - Preliminary Resulted 12/04/18 13:15 Nasal Nares Influenza Types A,B Antigen (PEEWEE) - Final Complete 12/04/18 12:05 Nasal Nares MRSA Culture - Final Staphylococcus Aureus - Mrsa Complete 12/04/18 12:05 Urine,Clean Catch Urine Culture - Preliminary Proteus Mirabilis Resulted 12/04/18 12:05 Rectum VRE Culture - Final Enterococcus Faecium - Vre Enterococcus Faecalis - Vre Complete 12/04/18 12:05 Rectum - Final NO CARBAPENEM-RESISTANT ENTEROBACTERI... Complete Accucheck: 101 Critical Care - Subjective ROS Limited/Unobtainable: Yes Condition: critical EKG Rhythm: Sinus Rhythm FI02: 35 Vent Support Breath Rate: 16 Vent Support Mode: AC Vent Tidal Volume: 600 Sputum Amount: Copious PEEP: 0.0 PIP: 21 Tube Feeding Amount: 60 I&O: Intake and Output 12/06/18 12/07/18 18:59 06:59 Intake Total 1230.0 ml 875 ml Output Total 350 ml 2190 ml Balance 880.0 ml -1315 ml Free Water 100 ml IV Total 590.0 ml 55 ml Tube Feeding 640 ml 720 ml Output Urine Total 350 ml 2190 ml # Bowel Movements 1 CXR: bilateral infiltrate, ET in good position ET-Tube: 8.0 ET Position: 23 Labs: Laboratory Tests Test 12/06/18 19:10 12/06/18 19:20 12/07/18 04:00 12/07/18 05:35 Troponin I 0.051 ng/mL (0.000-0.056) 0.046 ng/mL (0.000-0.056) Pro-B-Type Natriuretic Peptide 3521 pg/mL (0-125) H 3439 pg/mL (0-125) H Arterial Blood pH 7.453 (7.350-7.450) Arterial Blood Partial Pressure CO2 40.3 mmHg (35.0-45.0) Arterial Blood Partial Pressure O2 101.5 mmHg (75.0-100.0) H Arterial Blood HCO3 27.6 mmol/L (22.0-26.0) H Arterial Blood Oxygen Saturation 97.3 % (95-100) Arterial Blood Base Excess 3.4 (-2-2) H Aroldo Test Positive White Blood Count 13.9 K/UL (4.8-10.8) H Red Blood Count 3.15 M/UL (4.70-6.10) L Hemoglobin 8.3 G/DL (14.2-18.0) L Hematocrit 25.5 % (42.0-52.0) L Mean Corpuscular Volume 81 FL (80-99) Mean Corpuscular Hemoglobin 26.3 PG (27.0-31.0) L Mean Corpuscular Hemoglobin Concent 32.6 G/DL (32.0-36.0) Red Cell Distribution Width 17.1 % (11.6-14.8) H Platelet Count 363 K/UL (150-450) Mean Platelet Volume 6.7 FL (6.5-10.1) Neutrophils (%) (Auto) 84.5 % (45.0-75.0) H Lymphocytes (%) (Auto) 8.2 % (20.0-45.0) L Monocytes (%) (Auto) 3.7 % (1.0-10.0) Eosinophils (%) (Auto) 3.0 % (0.0-3.0) Basophils (%) (Auto) 0.6 % (0.0-2.0) Sodium Level 146 MMOL/L (136-145) H Potassium Level 3.0 MMOL/L (3.5-5.1) L Chloride Level 110 MMOL/L (98-107) H Carbon Dioxide Level 26 MMOL/L (21-32) Anion Gap 11 mmol/L (5-15) Blood Urea Nitrogen 17 mg/dL (7-18) Creatinine 1.1 MG/DL (0.55-1.30) Estimat Glomerular Filtration Rate mL/min (>60) Glucose Level 141 MG/DL (74-106) H Calcium Level 8.3 MG/DL (8.5-10.1) L Phosphorus Level 3.2 MG/DL (2.5-4.9) Magnesium Level 1.7 MG/DL (1.8-2.4) L Total Bilirubin 0.3 MG/DL (0.2-1.0) Aspartate Amino Transf (AST/SGOT) 24 U/L (15-37) Alanine Aminotransferase (ALT/SGPT) 30 U/L (12-78) Alkaline Phosphatase 99 U/L (46-116) Total Protein 7.0 G/DL (6.4-8.2) Albumin 1.3 G/DL (3.4-5.0) L Globulin 5.7 g/dL Albumin/Globulin Ratio 0.2 (1.0-2.7) L Isaiah Fritz MD Dec 07, 2018 09:51
--- NOTE | 2018-12-07 10:00 | NUR ---
NURSE NOTES: TUrned and repositioned. Morphine given. Patient comfortable. No distress noted at this time. Will continue plan of care.
[2018-12-07] MEDS: LORazepam Inj 2mg/ml 1ml IV PRN (10:01)
[2018-12-07] MEDS: Morphine Sulfate 4mg/ml Inj (IV/IM USE ONLY) IVP PRN (10:38)
--- NOTE | 2018-12-07 10:49 | NUR ---
Social Work This Sw met with patient, currently in the ICU, sedated, intubated. This Sw spoke with sister, Viktoria ([phone]) who explained niece, Esther Jimenez ([phone]) is the primary contact, but can be difficult to reach due to she is working; sister is the back-up contact for decision making, as needed. Patient's sister appears supportive, as needed, calling the ICU nurses station daily to verify patients progress (and has understanding regarding patients current status). Family are requesting full code, full treatment (have completed a POLST; on patients chart). Patient is from [facility]; sister requesting a transfer back to this facility when ready for discharge. Sister expressed concerns patient will loose his bed; this SW reassured sister regarding making attempts to transfer patient back [facility], will contact her if there are any concerns with this. Brief emotional support provided to sister.
--- NOTE | 2018-12-07 11:18 | Diagnostic Imaging Report ---
Indication: Dyspnea Technique: One view of the chest Comparison: 12/06/2018 Findings: Stable satisfactory position of endotracheal tube. Bilateral interstitial and airspace infiltrates versus edema appear unchanged. There is suggestion of pleural fluid on the right, unchanged Impression: Unchanged, over one day, findings as above.
--- NOTE | 2018-12-07 12:00 | NUR ---
NURSE NOTES: Patient turned and repositioned. Stable at this time. No new orders. Will continue plan of care.
--- NOTE | 2018-12-07 12:02 | Internal Med Progress Note ---
Subjective Physician Name ByronTye Attending Physician Isaiah Fritz MD Current Medications Medications (Trade) Dose Ordered Sig/Courtney Route PRN Reason Start Time Stop Time Status Last Admin Dose Admin Acetaminophen (Tylenol) 650 mg Q4H PRN ORAL fever 12/04/18 14:00 01/03/19 13:59 12/06/18 17:32 Albuterol/ Ipratropium (Albuterol/ Ipratropium) 3 ml Q4H PRN HHN Shortness of Breath 12/04/18 14:00 12/09/18 13:59 Azithromycin (Zithromax) 500 mg DAILY ORAL 12/05/18 14:00 12/12/18 13:59 12/07/18 09:32 Furosemide (Lasix) 40 mg DAILY IV 12/06/18 18:00 01/05/19 17:59 12/07/18 09:32 Heparin Sodium (Porcine) (Heparin 5000 units/ml) 5,000 units EVERY 12 HOURS SUBQ 12/04/18 21:00 01/03/19 20:59 12/07/18 09:34 Lorazepam (Ativan 2mg/ml 1ml) 2 mg Q2H PRN IV For Anxiety 12/04/18 14:00 12/11/18 13:59 12/07/18 10:01 Meropenem 1 gm/ Sodium Chloride 55 ml @ 110 mls/hr Q8HR IVPB 12/06/18 14:00 12/11/18 13:59 12/07/18 05:54 Morphine Sulfate (Morphine Sulfate) 4 mg Q4H PRN IVP Severe Pain (Pain Scale 7-10) 12/04/18 14:00 12/11/18 13:59 12/07/18 10:38 Norepinephrine Bitartrate 4 mg/ Dextrose 254 ml @ 0 mls/hr Q24H IV 12/04/18 14:00 01/03/19 13:59 Oseltamivir Phosphate (Tamiflu) 30 mg TWICE A DAY ORAL 12/05/18 18:00 12/10/18 17:59 12/07/18 09:32 Pantoprazole (Protonix) 40 mg DAILY IVP 12/05/18 09:00 01/04/19 08:59 12/07/18 09:33 Potassium Chloride 100 ml @ 100 mls/hr Q1H IVPB 12/07/18 09:00 12/07/18 12:59 12/07/18 11:00 Vancomycin HCl (Vanco rx to dose) 1 ea DAILY PRN MISC PER PHARM 12/04/18 15:15 01/03/19 15:14 Vancomycin HCl/ Dextrose 250 ml @ 125 mls/hr Q24H IVPB 12/06/18 09:00 12/11/18 08:59 12/07/18 09:32 Allergies: Coded Allergies: No Known Allergies (Unverified , 12/04/18) Subjective awake, open eyes with deep stimulation, intubated, in ICU. Objective Last Vital Signs Date Time Temp Pulse Resp B/P (MAP) Pulse Ox O2 Delivery O2 Flow Rate FiO2 12/07/18 11:24 95 18 35 12/07/18 11:00 145/80 (101) 100 12/07/18 10:00 99.0 12/07/18 08:00 Mechanical Ventilator 12/04/18 16:00 4.0 Laboratory Tests Test 12/06/18 19:10 12/06/18 19:20 12/07/18 04:00 12/07/18 05:35 Troponin I 0.051 ng/mL (0.000-0.056) 0.046 ng/mL (0.000-0.056) Pro-B-Type Natriuretic Peptide 3521 pg/mL (0-125) H 3439 pg/mL (0-125) H Arterial Blood pH 7.453 (7.350-7.450) Arterial Blood Partial Pressure CO2 40.3 mmHg (35.0-45.0) Arterial Blood Partial Pressure O2 101.5 mmHg (75.0-100.0) H Arterial Blood HCO3 27.6 mmol/L (22.0-26.0) H Arterial Blood Oxygen Saturation 97.3 % (95-100) Arterial Blood Base Excess 3.4 (-2-2) H Aroldo Test Positive White Blood Count 13.9 K/UL (4.8-10.8) H Red Blood Count 3.15 M/UL (4.70-6.10) L Hemoglobin 8.3 G/DL (14.2-18.0) L Hematocrit 25.5 % (42.0-52.0) L Mean Corpuscular Volume 81 FL (80-99) Mean Corpuscular Hemoglobin 26.3 PG (27.0-31.0) L Mean Corpuscular Hemoglobin Concent 32.6 G/DL (32.0-36.0) Red Cell Distribution Width 17.1 % (11.6-14.8) H Platelet Count 363 K/UL (150-450) Mean Platelet Volume 6.7 FL (6.5-10.1) Neutrophils (%) (Auto) 84.5 % (45.0-75.0) H Lymphocytes (%) (Auto) 8.2 % (20.0-45.0) L Monocytes (%) (Auto) 3.7 % (1.0-10.0) Eosinophils (%) (Auto) 3.0 % (0.0-3.0) Basophils (%) (Auto) 0.6 % (0.0-2.0) Sodium Level 146 MMOL/L (136-145) H Potassium Level 3.0 MMOL/L (3.5-5.1) L Chloride Level 110 MMOL/L (98-107) H Carbon Dioxide Level 26 MMOL/L (21-32) Anion Gap 11 mmol/L (5-15) Blood Urea Nitrogen 17 mg/dL (7-18) Creatinine 1.1 MG/DL (0.55-1.30) Estimat Glomerular Filtration Rate mL/min (>60) Glucose Level 141 MG/DL (74-106) H Calcium Level 8.3 MG/DL (8.5-10.1) L Phosphorus Level 3.2 MG/DL (2.5-4.9) Magnesium Level 1.7 MG/DL (1.8-2.4) L Total Bilirubin 0.3 MG/DL (0.2-1.0) Aspartate Amino Transf (AST/SGOT) 24 U/L (15-37) Alanine Aminotransferase (ALT/SGPT) 30 U/L (12-78) Alkaline Phosphatase 99 U/L (46-116) Total Protein 7.0 G/DL (6.4-8.2) Albumin 1.3 G/DL (3.4-5.0) L Globulin 5.7 g/dL Albumin/Globulin Ratio 0.2 (1.0-2.7) L Microbiology Date/Time Source Procedure Growth Status 12/04/18 12:20 Blood Blood Culture - Preliminary NO GROWTH AFTER 48 HOURS Resulted 1/22/19 12:05 Blood Blood Culture - Preliminary NO GROWTH AFTER 48 HOURS Resulted 12/06/18 12:00 Sputum Induced Gram Stain Pending Resulted 12/06/18 12:00 Sputum Induced Sputum Culture - Preliminary Resulted 12/04/18 13:15 Nasal Nares Influenza Types A,B Antigen (PEEWEE) - Final Complete 12/04/18 12:05 Nasal Nares MRSA Culture - Final Staphylococcus Aureus - Mrsa Complete 12/04/18 12:05 Urine,Clean Catch Urine Culture - Preliminary Proteus Mirabilis Resulted 12/05/18 20:00 Catheter Site Catheter Tip Culture - Preliminary Resulted 12/04/18 12:05 Rectum VRE Culture - Final Enterococcus Faecium - Vre Enterococcus Faecalis - Vre Complete 12/04/18 12:05 Rectum - Final NO CARBAPENEM-RESISTANT ENTEROBACTERI... Complete Intake and Output 12/06/18 12/07/18 18:59 06:59 Intake Total 1230.0 ml 875 ml Output Total 350 ml 2190 ml Balance 880.0 ml -1315 ml Free Water 100 ml IV Total 590.0 ml 55 ml Tube Feeding 640 ml 720 ml Output Urine Total 350 ml 2190 ml # Bowel Movements 1 Objective General: awake, responsive with open eyes, intubated. HEENT: NCAT, sclera anicteric, PERRL, ET Tube. Neck: Supple, no significant jugular venous distention, Lungs: Mechanical breath sound, decrease air at bases. no Wheeze or Rales. Heart: Regular rate and rhythm, normal S1/S2, no murmur. Abdomen: soft, nontender, nondistended. Normoactive bowel sounds, PEG site intact, + umbilical hernia. / Rectal: Andrade cath. Extremities: No Cyanosis , clubbing or edema. Neuro: A&O x 3, Able to move all extremities slowly. Skin: warm, no rashes Assessment/Plan Assessment/Plan Assessment: Severe Sepsis- likely 2ry to PNA, r/o bacteremia, UTI. Possible Flu despite neg screen test Acute respiratory failure s/p intubation 12/04 ELICIA COPD DM2 HTN Dysphagia s/p G-tube Dementia Plan: -Continue empiric IV Vancomycin IV and Meropenem IV -Cont empiric Azithromycin and Tamiflu -12/05 AMikacin and Ertapenem #2 -monitor labs and culyures, Tube feeding @ 60 cc/hr Heparin SQ Full code. Tye Matthews MD Dec 07, 2018 12:02
--- NOTE | 2018-12-07 13:22 | Cardiac Electrophysiology PN ---
Subjective Subjective [id number] Objective Last 24 Hour Vital Signs Date Time Temp Pulse Resp B/P (MAP) Pulse Ox O2 Delivery O2 Flow Rate FiO2 12/07/18 13:12 97 20 35 12/07/18 13:00 99.1 92 18 160/91 (114) 100 12/07/18 13:00 150/91 12/07/18 12:00 35 12/07/18 12:00 Mechanical Ventilator 12/07/18 12:00 95 18 148/81 (103) 100 12/07/18 11:24 95 18 35 12/07/18 11:00 96 18 145/80 (101) 100 12/07/18 10:00 99.0 90 20 155/78 (103) 100 12/07/18 10:00 94 18 170/97 (121) 100 12/07/18 09:19 97 23 35 12/07/18 09:00 89 20 158/75 (102) 100 12/07/18 08:00 84 20 160/71 (100) 100 12/07/18 08:00 Mechanical Ventilator 12/07/18 08:00 35 12/07/18 08:00 82 12/07/18 07:30 93 26 35 12/07/18 07:00 90 20 155/90 (111) 100 12/07/18 06:00 99.2 82 20 162/85 (110) 100 12/07/18 05:25 88 21 35 12/07/18 05:00 90 20 158/78 (104) 100 12/07/18 04:00 90 20 154/80 (104) 100 12/07/18 04:00 94 12/07/18 04:00 35 12/07/18 04:00 Mechanical Ventilator 12/07/18 03:10 92 27 35 12/07/18 03:00 90 20 152/87 (108) 100 12/07/18 02:00 99.2 87 20 150/80 (103) 100 12/07/18 01:10 88 23 35 12/07/18 01:00 87 20 155/87 (109) 100 12/07/18 00:00 Mechanical Ventilator 12/07/18 00:00 35 12/07/18 00:00 86 12/07/18 00:00 99.2 90 20 166/76 (106) 100 12/06/18 23:15 90 23 35 12/06/18 23:00 83 20 158/97 (117) 100 12/06/18 22:00 98.9 83 20 147/82 (103) 100 12/06/18 21:12 91 19 35 12/06/18 21:00 90 12 146/79 (101) 100 12/06/18 20:00 93 12/06/18 20:00 99.8 91 19 150/78 (102) 100 12/06/18 20:00 Mechanical Ventilator 12/06/18 20:00 35 12/06/18 19:00 95 12 141/17 (58) 100 12/06/18 18:59 95 24 35 12/06/18 18:02 101.0 12/06/18 18:00 76 20 128/68 (88) 100 12/06/18 17:26 50 12/06/18 17:12 97 26 35 12/06/18 17:00 89 20 150/93 (112) 100 12/06/18 16:00 Mechanical Ventilator 12/06/18 16:00 81 12/06/18 16:00 35 12/06/18 16:00 100.0 88 19 174/68 (103) 100 12/06/18 15:00 88 19 144/76 (98) 100 12/06/18 14:51 88 17 35 12/06/18 14:00 88 19 131/70 (90) 100 12/06/18 14:00 129/75 Intake and Output 12/06/18 12/07/18 19:00 07:00 Intake Total 1240.0 ml 870 ml Output Total 340 ml 2220 ml Balance 900.0 ml -1350 ml Free Water 100 ml IV Total 590.0 ml 110 ml Tube Feeding 650 ml 660 ml Output Urine Total 340 ml 2220 ml # Bowel Movements 1 Laboratory Tests Test 12/06/18 19:10 12/06/18 19:20 12/07/18 04:00 12/07/18 05:35 Troponin I 0.051 ng/mL (0.000-0.056) 0.046 ng/mL (0.000-0.056) Pro-B-Type Natriuretic Peptide 3521 pg/mL (0-125) H 3439 pg/mL (0-125) H Arterial Blood pH 7.453 (7.350-7.450) Arterial Blood Partial Pressure CO2 40.3 mmHg (35.0-45.0) Arterial Blood Partial Pressure O2 101.5 mmHg (75.0-100.0) H Arterial Blood HCO3 27.6 mmol/L (22.0-26.0) H Arterial Blood Oxygen Saturation 97.3 % (95-100) Arterial Blood Base Excess 3.4 (-2-2) H Aroldo Test Positive White Blood Count 13.9 K/UL (4.8-10.8) H Red Blood Count 3.15 M/UL (4.70-6.10) L Hemoglobin 8.3 G/DL (14.2-18.0) L Hematocrit 25.5 % (42.0-52.0) L Mean Corpuscular Volume 81 FL (80-99) Mean Corpuscular Hemoglobin 26.3 PG (27.0-31.0) L Mean Corpuscular Hemoglobin Concent 32.6 G/DL (32.0-36.0) Red Cell Distribution Width 17.1 % (11.6-14.8) H Platelet Count 363 K/UL (150-450) Mean Platelet Volume 6.7 FL (6.5-10.1) Neutrophils (%) (Auto) 84.5 % (45.0-75.0) H Lymphocytes (%) (Auto) 8.2 % (20.0-45.0) L Monocytes (%) (Auto) 3.7 % (1.0-10.0) Eosinophils (%) (Auto) 3.0 % (0.0-3.0) Basophils (%) (Auto) 0.6 % (0.0-2.0) Sodium Level 146 MMOL/L (136-145) H Potassium Level 3.0 MMOL/L (3.5-5.1) L Chloride Level 110 MMOL/L (98-107) H Carbon Dioxide Level 26 MMOL/L (21-32) Anion Gap 11 mmol/L (5-15) Blood Urea Nitrogen 17 mg/dL (7-18) Creatinine 1.1 MG/DL (0.55-1.30) Estimat Glomerular Filtration Rate mL/min (>60) Glucose Level 141 MG/DL (74-106) H Calcium Level 8.3 MG/DL (8.5-10.1) L Phosphorus Level 3.2 MG/DL (2.5-4.9) Magnesium Level 1.7 MG/DL (1.8-2.4) L Total Bilirubin 0.3 MG/DL (0.2-1.0) Aspartate Amino Transf (AST/SGOT) 24 U/L (15-37) Alanine Aminotransferase (ALT/SGPT) 30 U/L (12-78) Alkaline Phosphatase 99 U/L (46-116) Total Protein 7.0 G/DL (6.4-8.2) Albumin 1.3 G/DL (3.4-5.0) L Globulin 5.7 g/dL Albumin/Globulin Ratio 0.2 (1.0-2.7) L Microbiology Date/Time Source Procedure Growth Status 12/06/18 12:00 Sputum Induced Gram Stain Pending Resulted 12/06/18 12:00 Sputum Induced Sputum Culture - Preliminary Resulted 12/05/18 20:00 Catheter Site Catheter Tip Culture - Preliminary Resulted Darrell Cevallos MD Dec 07, 2018 13:22
--- NOTE | 2018-12-07 13:59 | Infectious Diseases Prog Note ---
Assessment/Plan Assessment/Plan Assessment: Severe Sepsis- likely 2ry to PNA, r/o bacteremia, UTI. Possible Flu despite neg screen test -CXR: Bilateral diffuse interstitial and airspace infiltrates versus edema, worsening on the right over one day -Bcx NTD -u/a wbc 40-60, nit neg, leuk large; ucx 10-20 k P. mirablis ESBL (S Meropenem, Zosyn) -sp cx p -influenza sc, legionela ag urine neg Fever, improving Leukocytosis, improving Acute respiratory failure s/p intubation 12/04 ELICIA, improving COPD DM2 HTN dysphagia s/p G-tube dementia SNF resident Plan: -Continue empiric IV Vancomycin #4 and Meropenem #3 for PNA and UTI penidng cultures -D/c empiric Azithromycin #3 -Continue empiric Tamiflu #3/5 -12/05 AMikacin and Ertapenem #2 -f/u cx -Monitor CBC/CMP, temperatures -ICU, ETT care -aspiration precautions Thank you for this consultation. Will continue to follow along with you. Discussed with RN. Subjective Allergies: Coded Allergies: No Known Allergies (Unverified , 12/04/18) Subjective Tm 101, afebrile >12hrs; so far now fever today at 35% fio2 wbc improving Bcx NTD Objective Vital Signs Last 24 Hour Vital Signs Date Time Temp Pulse Resp B/P (MAP) Pulse Ox O2 Delivery O2 Flow Rate FiO2 12/07/18 13:12 97 20 35 12/07/18 13:00 99.1 92 18 160/91 (114) 100 12/07/18 13:00 150/91 12/07/18 12:00 35 12/07/18 12:00 Mechanical Ventilator 12/07/18 12:00 89 12/07/18 12:00 95 18 148/81 (103) 100 12/07/18 11:24 95 18 35 12/07/18 11:00 96 18 145/80 (101) 100 12/07/18 10:00 99.0 90 20 155/78 (103) 100 12/07/18 10:00 94 18 170/97 (121) 100 12/07/18 09:19 97 23 35 12/07/18 09:00 89 20 158/75 (102) 100 12/07/18 08:00 84 20 160/71 (100) 100 12/07/18 08:00 Mechanical Ventilator 12/07/18 08:00 35 12/07/18 08:00 82 12/07/18 07:30 93 26 35 12/07/18 07:00 90 20 155/90 (111) 100 12/07/18 06:00 99.2 82 20 162/85 (110) 100 12/07/18 05:25 88 21 35 12/07/18 05:00 90 20 158/78 (104) 100 12/07/18 04:00 90 20 154/80 (104) 100 12/07/18 04:00 94 12/07/18 04:00 35 12/07/18 04:00 Mechanical Ventilator 12/07/18 03:10 92 27 35 12/07/18 03:00 90 20 152/87 (108) 100 12/07/18 02:00 99.2 87 20 150/80 (103) 100 12/07/18 01:10 88 23 35 12/07/18 01:00 87 20 155/87 (109) 100 12/07/18 00:00 Mechanical Ventilator 12/07/18 00:00 35 12/07/18 00:00 86 12/07/18 00:00 99.2 90 20 166/76 (106) 100 12/06/18 23:15 90 23 35 12/06/18 23:00 83 20 158/97 (117) 100 12/06/18 22:00 98.9 83 20 147/82 (103) 100 12/06/18 21:12 91 19 35 12/06/18 21:00 90 12 146/79 (101) 100 12/06/18 20:00 93 12/06/18 20:00 99.8 91 19 150/78 (102) 100 12/06/18 20:00 Mechanical Ventilator 12/06/18 20:00 35 12/06/18 19:00 95 12 141/17 (58) 100 12/06/18 18:59 95 24 35 12/06/18 18:02 101.0 12/06/18 18:00 76 20 128/68 (88) 100 12/06/18 17:26 50 12/06/18 17:12 97 26 35 12/06/18 17:00 89 20 150/93 (112) 100 12/06/18 16:00 Mechanical Ventilator 12/06/18 16:00 81 12/06/18 16:00 35 12/06/18 16:00 100.0 88 19 174/68 (103) 100 12/06/18 15:00 88 19 144/76 (98) 100 12/06/18 14:51 88 17 35 12/06/18 14:00 88 19 131/70 (90) 100 12/06/18 14:00 129/75 Height (Feet): 5 Height (Inches): 7.00 Weight (Pounds): 164 Objective Status: awake Condition: critical HEENT: atraumatic Neck: full ROM Lungs: clear Heart: HR/BP stable Abdomen: soft, active bowel sounds Extremities: no C/C/E Decubiti: location Microbiology Date/Time Source Procedure Growth Status 12/06/18 12:00 Sputum Induced Gram Stain - Final Resulted 12/06/18 12:00 Sputum Induced Sputum Culture - Preliminary Resulted 12/05/18 20:00 Catheter Site Catheter Tip Culture - Preliminary Resulted Laboratory Tests Test 12/06/18 19:10 12/06/18 19:20 12/07/18 04:00 12/07/18 05:35 Troponin I 0.051 ng/mL (0.000-0.056) 0.046 ng/mL (0.000-0.056) Pro-B-Type Natriuretic Peptide 3521 pg/mL (0-125) H 3439 pg/mL (0-125) H Arterial Blood pH 7.453 (7.350-7.450) Arterial Blood Partial Pressure CO2 40.3 mmHg (35.0-45.0) Arterial Blood Partial Pressure O2 101.5 mmHg (75.0-100.0) H Arterial Blood HCO3 27.6 mmol/L (22.0-26.0) H Arterial Blood Oxygen Saturation 97.3 % (95-100) Arterial Blood Base Excess 3.4 (-2-2) H Aroldo Test Positive White Blood Count 13.9 K/UL (4.8-10.8) H Red Blood Count 3.15 M/UL (4.70-6.10) L Hemoglobin 8.3 G/DL (14.2-18.0) L Hematocrit 25.5 % (42.0-52.0) L Mean Corpuscular Volume 81 FL (80-99) Mean Corpuscular Hemoglobin 26.3 PG (27.0-31.0) L Mean Corpuscular Hemoglobin Concent 32.6 G/DL (32.0-36.0) Red Cell Distribution Width 17.1 % (11.6-14.8) H Platelet Count 363 K/UL (150-450) Mean Platelet Volume 6.7 FL (6.5-10.1) Neutrophils (%) (Auto) 84.5 % (45.0-75.0) H Lymphocytes (%) (Auto) 8.2 % (20.0-45.0) L Monocytes (%) (Auto) 3.7 % (1.0-10.0) Eosinophils (%) (Auto) 3.0 % (0.0-3.0) Basophils (%) (Auto) 0.6 % (0.0-2.0) Sodium Level 146 MMOL/L (136-145) H Potassium Level 3.0 MMOL/L (3.5-5.1) L Chloride Level 110 MMOL/L (98-107) H Carbon Dioxide Level 26 MMOL/L (21-32) Anion Gap 11 mmol/L (5-15) Blood Urea Nitrogen 17 mg/dL (7-18) Creatinine 1.1 MG/DL (0.55-1.30) Estimat Glomerular Filtration Rate mL/min (>60) Glucose Level 141 MG/DL (74-106) H Calcium Level 8.3 MG/DL (8.5-10.1) L Phosphorus Level 3.2 MG/DL (2.5-4.9) Magnesium Level 1.7 MG/DL (1.8-2.4) L Total Bilirubin 0.3 MG/DL (0.2-1.0) Aspartate Amino Transf (AST/SGOT) 24 U/L (15-37) Alanine Aminotransferase (ALT/SGPT) 30 U/L (12-78) Alkaline Phosphatase 99 U/L (46-116) Total Protein 7.0 G/DL (6.4-8.2) Albumin 1.3 G/DL (3.4-5.0) L Globulin 5.7 g/dL Albumin/Globulin Ratio 0.2 (1.0-2.7) L Current Medications Medications (Trade) Dose Ordered Sig/Courtney Route PRN Reason Start Time Stop Time Status Last Admin Dose Admin Acetaminophen (Tylenol) 650 mg Q4H PRN ORAL fever 12/04/18 14:00 01/03/19 13:59 12/06/18 17:32 Albuterol/ Ipratropium (Albuterol/ Ipratropium) 3 ml Q4H PRN HHN Shortness of Breath 12/04/18 14:00 12/09/18 13:59 Azithromycin (Zithromax) 500 mg DAILY GT 12/08/18 09:00 12/15/18 08:59 Furosemide (Lasix) 40 mg DAILY IV 12/06/18 18:00 01/05/19 17:59 12/07/18 09:32 Heparin Sodium (Porcine) (Heparin 5000 units/ml) 5,000 units EVERY 12 HOURS SUBQ 12/04/18 21:00 01/03/19 20:59 12/07/18 09:34 Lisinopril (Zestril) 10 mg DAILY GT 12/08/18 09:00 01/07/19 08:59 Lorazepam (Ativan 2mg/ml 1ml) 2 mg Q2H PRN IV For Anxiety 12/04/18 14:00 12/11/18 13:59 12/07/18 10:01 Meropenem 1 gm/ Sodium Chloride 55 ml @ 110 mls/hr Q8HR IVPB 12/06/18 14:00 12/11/18 13:59 12/07/18 05:54 Morphine Sulfate (Morphine Sulfate) 4 mg Q4H PRN IVP Severe Pain (Pain Scale 7-10) 12/04/18 14:00 12/11/18 13:59 12/07/18 10:38 Norepinephrine Bitartrate 4 mg/ Dextrose 254 ml @ 0 mls/hr Q24H IV 12/04/18 14:00 01/03/19 13:59 Oseltamivir Phosphate (Tamiflu) 30 mg TWICE A DAY ORAL 12/07/18 18:00 12/12/18 17:59 Pantoprazole (Protonix) 40 mg DAILY IVP 12/05/18 09:00 01/04/19 08:59 12/07/18 09:33 Vancomycin HCl (Vanco rx to dose) 1 ea DAILY PRN MISC PER PHARM 12/04/18 15:15 01/03/19 15:14 Vancomycin HCl/ Dextrose 250 ml @ 125 mls/hr Q24H IVPB 12/06/18 09:00 12/11/18 08:59 12/07/18 09:32 Jazz Alexander M.D. Dec 07, 2018 13:59
--- NOTE | 2018-12-07 14:00 | NUR ---
NURSE NOTES: Patient turned and repositioned. No new orders at this time. Will continue plan of care.
--- NOTE | 2018-12-07 16:00 | NUR ---
NURSE NOTES: NO changes in patient condition. VSS. No distress noted.
--- NOTE | 2018-12-07 16:51 | NUR ---
Pt remain on same vent settings. Tube is secure and in place. Bite block in place due to pt biting tube. Pt has copious amounts of secretions and needs frequent sxn. No s/s of resp distress noted. Alarms are on and audible. Addendum: 12/07/18 at 1652 by GIFTY GLOVER RT Amended: Links added.
[2018-12-07] MEDS ORDERED: NS 275ml ONE (16:55)
[2018-12-07] MEDS ORDERED: Tubing Blood Filter IV ONE (16:55)
--- NOTE | 2018-12-07 18:00 | NUR ---
NURSE NOTES: Patient turned and repositioned. No new orders at this time. Will continue plan of care.
--- NOTE | 2018-12-07 19:08 | NUR ---
HAND-OFF: Report given to DARIANA Novoa using sbar. VSS. No distress noted.
--- NOTE | 2018-12-07 19:30 | NUR ---
NURSE NOTES: Received pt in bed with eyes closed. Sinus rhythm on the monitor. Orally intubated on Ac 16, Vt 600, fio2 35%. Left EJ 18, Left FA 18G IV sites all patent and intact. GT running Jevity 1.2 @ 60cc/hr with no residual noted at this time. Andrade cath draining by gravity. Bed in lowest position, side rails upx2. On contact precautions. Bilateral soft wrist restraints on. Will continue to monitor.
--- NOTE | 2018-12-07 20:00 | NUR ---
NURSE NOTES: After Tylenol pt temp now 99.8. Will continue to monitor temps throughout shift
--- NOTE | 2018-12-07 20:15 | Consultation ---
DATE OF CONSULTATION: 12/07/2018 CONSULTING PHYSICIAN: Darrell Cevallos M.D. REFERRING PHYSICIAN: Tye Matthews M.D. ADDITIONAL REFERRING PHYSICIAN: Roni Carson M.D. REASON FOR CONSULTATION: Hypertension, tachycardia, history of coronary artery disease, and prior cardiac arrest. HISTORY OF PRESENT ILLNESS: The patient is a 73-year-old gentleman with history of hypertension, diabetes, coronary artery disease, prior cardiac arrest, COPD, and dysphagia with status post PEG placement, who was admitted for altered mental status. The patient was a resident of [facility]. The patient was severely hypoxic and then was found to have respiratory failure and bilateral pneumonia and was intubated. The patient was admitted to the intensive care unit, and Cardiology consultation was obtained for further evaluation. It is of note that the patient's hemoglobin was as low as 6.5 and BNP was more than 3500. REVIEW OF SYSTEMS: Cannot be obtained. PAST MEDICAL HISTORY: As mentioned above. FAMILY HISTORY: Noncontributory. SOCIAL HISTORY: [facility]. Does not smoke or drink alcohol. PHYSICAL EXAMINATION: VITAL SIGNS: Blood pressure is 150/91 and as high as 160/91, pulse is 97, and respirations 20. HEAD AND NECK: He is orally intubated. LUNGS: Coarse rhonchi. CARDIOVASCULAR: Regular S1 and S2 and mildly tachycardic. ABDOMEN: Status post G-tube. EXTREMITIES: No pitting edema. LABORATORY AND DIAGNOSTIC DATA: His labs show sodium of 146, potassium is 3, BUN of 17, creatinine 1.1, and glucose of 141. Troponin negative x2. BNP is 3521. White count was initially 28.1, today is 13.9; hemoglobin is 8.2; hematocrit is 25.5; and platelet count is 363. ASSESSMENT AND PLAN: 1. Respiratory failure with elevated BNP. His echocardiogram showed ejection fraction of 55% to 60% with no active diastolic dysfunction. Continue the patient on Lasix 40 mg IV daily. 2. Pneumonia, respiratory failure. The patient is on the ventilator as well as on broad-spectrum IV antibiotic per Infectious Diseases and Dr. Fritz. 3. Hypertension. The patient is on Lasix 40 mg IV daily. We will add lisinopril 10 mg b.i.d. to his medical regimen. 4. Severe sepsis, likely due to pneumonia and bacteremia. 5. Diabetes and dysphagia, status post PEG placement. Thank you very much, Dr. Matthews, for allowing me to participate in the care of this patient. Please do not hesitate to contact me for any questions regarding my evaluation. Case was discussed with Dr. Carson as well as ICU nurse. Darrell Cevallos M.D. DR: TESHA JOB#: [id number] CC:
--- NOTE | 2018-12-07 22:00 | NUR ---
NURSE NOTES: Turned and repositioned pt at this time. Pt able to nod and answer simple yes or no questions. Will continue to monitor
[2018-12-08] VITALS (24 sets, daily range): BP systolic 128–161; BP diastolic 61–90
--- NOTE | 2018-12-08 | NUR ---
NURSE NOTES: pt sleeping at this time. tolerating current vent settings. No signs of distress noted. Will continue to monitor
--- NOTE | 2018-12-08 02:00 | NUR ---
NURSE NOTES: Turned and repositioned for comfort. Continues on Bi-lateral soft wrist restraints at this time. released and reapplied due to patient reaching for ETT. Will continue to monitor
--- NOTE | 2018-12-08 04:00 | NUR ---
NURSE NOTES: Morning care provided at this time. Pt noted to have one soft BM at this time. Cleaned, turned and repositioned. Will continue with plan of care
[2018-12-08] MEDS: Meropenem 1 GM in NS 55 ML IVPB SCH ×3 (05:09→21:34)
--- NOTE | 2018-12-08 06:12 | NUR ---
NURSE NOTES: Pt sleeping comfortably in bed. No signs of distress noted. Continues on bilateral soft wrist restraints at this time. Removal criteria explained. Will continue to monitor
--- NOTE | 2018-12-08 06:30 | NUR ---
RESPIRATORY NOTE: Received pt orally intubated with ETT 8.0@ 23cm lips line, secured by anchor fast with current settings: AC 16-600ml-30% FiO2 no peep, saturates at 100%, tachypneic RR 24bpm. Javier rhonchi breath sounds present upon auscultation, sxn large amount of white shah secretions without incident. No acute resp distress noted. Alarms are set and audible, vent is plugged into the red outlet, ambu bag is at bedside. Will continue to monitor pt closely.
--- NOTE | 2018-12-08 07:00 | NUR ---
HAND-OFF: Report given to Ani RN using SBAR. VS Stable
[2018-12-08 07:29] LABS: BASOPHILS % (AUTO) 0.9 % (0.0-2.0); EOSINOPHILS % (AUTO) 3.8 % (0.0-3.0); HEMATOCRIT 28.9 % (42.0-52.0); HEMOGLOBIN 9.2 G/DL (14.2-18.0); LYMPHOCYTES % (AUTO) 11.1 % (20.0-45.0); MEAN CORPUSCULAR VOLUME 81 FL (80-99); MONOCYTES % (AUTO) 5.6 % (1.0-10.0); NEUTROPHILS % (AUTO) 78.5 % (45.0-75.0); PLATELET COUNT 409 K/UL (150-450); RED BLOOD COUNT 3.55 M/UL (4.70-6.10); RED CELL DISTRIBUTION WIDTH 17.7 % (11.6-14.8); WHITE BLOOD COUNT 11.4 K/UL (4.8-10.8)
[2018-12-08 07:41] LABS: ALANINE AMINOTRANSFERASE 26 U/L (12-78); ALBUMIN 1.4 G/DL (3.4-5.0); ALBUMIN/GLOBULIN RATIO 0.2 (1.0-2.7); ALKALINE PHOSPHATASE 92 U/L (46-116); ANION GAP 7 mmol/L (5-15); ASPARTATE AMINO TRANSFERASE 20 U/L (15-37); BILIRUBIN,TOTAL 0.4 MG/DL (0.2-1.0); BLOOD UREA NITROGEN 17 mg/dL (7-18); CALCIUM 8.8 MG/DL (8.5-10.1); CARBON DIOXIDE 31 MMOL/L (21-32); CHLORIDE 107 MMOL/L (98-107); PHOSPHORUS 3.8 MG/DL (2.5-4.9); POTASSIUM 3.4 MMOL/L (3.5-5.1); SODIUM 145 MMOL/L (136-145)
--- NOTE | 2018-12-08 08:00 | NUR ---
NURSE NOTES: Received patient agitated, constantly trying to reach for tubes. Bilateral restraints on, no discoloration or swelling noted related to restraints. Active range of motion intact. Cardia monitor showing SR. Patient is intubated ETT8.0/23 cm lip line. AC 16 VT 600 FiO2 35% No peep. Lung sounds diminished bilaterally. Patient has a G tube. Jevity 1.2 at 60 cc/hr. No residual. Tolerating well. Round, non tender abdomen. Hypoactive bowel sounds on all 4 quadrants. Skin intact. L EJ 18, L forearm 18. Potassium reported to Dr. Fritz. Will continue to monitor patient. HOB elevated, call light within reach, bed on lowest position. Will continue plan of care.
--- NOTE | 2018-12-08 08:42 | Pulmonolgy Critical Care Note ---
Critical Care - Asmt/Plan Problems: (1) Acute respiratory failure (2) Septic shock (3) Hypothyroidism (4) History of hypertension (5) Feeding by G-tube Respiratory: monitor respiratory rate, adjust FIO2, CXR Cardiac: continue to monitor HR/BP Renal: F/U I&O, keep IV fluid, check electrolytes, other - mg and K supplement Infectious Disease: check cultures, continue antibiotics Gastrointestinal: continue feedings/current rate Endocrine: monitor blood sugar, continue sliding scale insulin Hematologic: transfuse if hgb<8.5 Neurologic: PRN Ativan, PRN Morphine, keep patient comfortable Prophylaxis: Protonix, Heparin Notes Reviewed: product line manager, renal Discussed with: nurses, consultants, correctional case managerrestaurant front manager - Objective Last 24 Hour Vital Signs Date Time Temp Pulse Resp B/P (MAP) Pulse Ox O2 Delivery O2 Flow Rate FiO2 12/08/18 08:00 99.0 85 18 140/70 (93) 100 12/08/18 08:00 88 12/08/18 08:00 Mechanical Ventilator 12/08/18 08:00 35 12/08/18 07:00 89 18 156/71 (99) 100 12/08/18 06:30 95 24 30 12/08/18 06:00 90 18 161/71 (101) 100 12/08/18 05:29 92 21 30 12/08/18 05:00 91 18 153/75 (101) 100 12/08/18 04:00 Mechanical Ventilator 12/08/18 04:00 35 12/08/18 04:00 87 12/08/18 04:00 99.3 98 18 150/83 (105) 100 12/08/18 03:21 85 18 30 12/08/18 03:00 88 18 157/77 (103) 100 12/08/18 02:00 89 18 151/78 (102) 100 12/08/18 01:29 92 18 30 12/08/18 01:00 92 17 145/75 (98) 100 12/08/18 00:00 35 12/08/18 00:00 95 12/08/18 00:00 Mechanical Ventilator 12/08/18 00:00 99.6 90 17 128/61 (83) 100 12/07/18 23:13 94 18 30 12/07/18 23:00 94 17 144/86 (105) 99 12/07/18 22:00 96 17 150/82 (104) 99 12/07/18 21:00 98 17 128/80 (96) 99 12/07/18 20:59 92 18 30 12/07/18 20:00 100.3 96 16 140/74 (96) 100 12/07/18 20:00 35 12/07/18 20:00 98 12/07/18 20:00 Mechanical Ventilator 12/07/18 19:56 99.8 12/07/18 19:08 94 16 30 12/07/18 19:00 87 18 133/70 (91) 100 12/07/18 18:00 99.0 90 18 140/77 (98) 100 12/07/18 17:00 96 19 136/72 (93) 100 12/07/18 16:49 94 17 35 12/07/18 16:00 85 18 158/80 (106) 100 12/07/18 16:00 96 12/07/18 16:00 Mechanical Ventilator 12/07/18 16:00 35 12/07/18 15:26 99 21 35 12/07/18 15:00 91 18 162/86 (111) 100 12/07/18 14:00 99 16 123/39 (67) 100 12/07/18 13:12 97 20 35 12/07/18 13:00 99.1 92 18 160/91 (114) 100 12/07/18 13:00 150/91 12/07/18 12:00 35 12/07/18 12:00 Mechanical Ventilator 12/07/18 12:00 89 12/07/18 12:00 95 18 148/81 (103) 100 12/07/18 11:24 95 18 35 12/07/18 11:00 96 18 145/80 (101) 100 12/07/18 10:00 99.0 90 20 155/78 (103) 100 12/07/18 10:00 94 18 170/97 (121) 100 12/07/18 09:19 97 23 35 12/07/18 09:00 89 20 158/75 (102) 100 Status: sedated Condition: critical HEENT: atraumatic Lungs: chest wall tender Heart: HR/BP unstable, regular Abdomen: active bowel sounds, feeding tube Extremities: no C/C/E, edema Micro: Microbiology Date/Time Source Procedure Growth Status 12/06/18 12:00 Sputum Induced Gram Stain - Final Resulted 12/06/18 12:00 Sputum Culture - Preliminary Gram Negative Bacillus 1 Resulted 12/05/18 20:00 Catheter Site Catheter Tip Culture - Preliminary Resulted Accucheck: 101 Critical Care - Subjective ROS Limited/Unobtainable: Yes Intubation Day: 4 Condition: critical EKG Rhythm: Sinus Rhythm FI02: 35 Vent Support Breath Rate: 16 Vent Support Mode: AC Vent Tidal Volume: 600 Sputum Amount: Large PEEP: 0.0 PIP: 27 Tube Feeding Amount: 60 I&O: Intake and Output 12/07/18 12/08/18 19:00 07:00 Intake Total 720 ml 720 ml Output Total 1180 ml 455 ml Balance -460 ml 265 ml Tube Feeding 720 ml 720 ml Output Urine Total 1180 ml 455 ml # Bowel Movements 1 CXR: no change ET-Tube: 8.0 ET Position: 23 Labs: Laboratory Tests Test 12/08/18 06:05 12/08/18 06:50 12/08/18 08:02 White Blood Count 11.4 K/UL (4.8-10.8) H Red Blood Count 3.55 M/UL (4.70-6.10) L Hemoglobin 9.2 G/DL (14.2-18.0) L Hematocrit 28.9 % (42.0-52.0) L Mean Corpuscular Volume 81 FL (80-99) Mean Corpuscular Hemoglobin 26.0 PG (27.0-31.0) L Mean Corpuscular Hemoglobin Concent 31.9 G/DL (32.0-36.0) L Red Cell Distribution Width 17.7 % (11.6-14.8) H Platelet Count 409 K/UL (150-450) Mean Platelet Volume 7.2 FL (6.5-10.1) Neutrophils (%) (Auto) 78.5 % (45.0-75.0) H Lymphocytes (%) (Auto) 11.1 % (20.0-45.0) L Monocytes (%) (Auto) 5.6 % (1.0-10.0) Eosinophils (%) (Auto) 3.8 % (0.0-3.0) H Basophils (%) (Auto) 0.9 % (0.0-2.0) Sodium Level 145 MMOL/L (136-145) Potassium Level 3.4 MMOL/L (3.5-5.1) L Chloride Level 107 MMOL/L (98-107) Carbon Dioxide Level 31 MMOL/L (21-32) Anion Gap 7 mmol/L (5-15) Blood Urea Nitrogen 17 mg/dL (7-18) Creatinine 1.0 MG/DL (0.55-1.30) Estimat Glomerular Filtration Rate mL/min (>60) Glucose Level 142 MG/DL (74-106) H Calcium Level 8.8 MG/DL (8.5-10.1) Phosphorus Level 3.8 MG/DL (2.5-4.9) Magnesium Level 1.5 MG/DL (1.8-2.4) L Total Bilirubin 0.4 MG/DL (0.2-1.0) Aspartate Amino Transf (AST/SGOT) 20 U/L (15-37) Alanine Aminotransferase (ALT/SGPT) 26 U/L (12-78) Alkaline Phosphatase 92 U/L (46-116) Pro-B-Type Natriuretic Peptide 2041 pg/mL (0-125) H Total Protein 7.3 G/DL (6.4-8.2) Albumin 1.4 G/DL (3.4-5.0) L Globulin 5.9 g/dL Albumin/Globulin Ratio 0.2 (1.0-2.7) L Vancomycin Level Trough 17.8 ug/mL (5.0-12.0) H Isaiah Fritz MD Dec 08, 2018 08:42
[2018-12-08] MEDS ORDERED: Potassium Chloride 40 MEQ in Sodium Chloride 550 ML IVPB ONE (08:45)
[2018-12-08] MEDS: Oseltamivir 75mg cap ORAL SCH ×2 (08:56→18:21)
[2018-12-08] MEDS: Vancomycin 1.5 GM/D5W 250ML IVPB SCH (08:57)
[2018-12-08] MEDS: Heparin 5000 units/ml inj SUBQ SCH ×2 (08:57→20:55)
[2018-12-08] MEDS: Pantoprazole Inj IVP SCH (08:57)
[2018-12-08] MEDS: LORazepam Inj 2mg/ml 1ml IV PRN (08:58)
[2018-12-08] MEDS: Morphine Sulfate 4mg/ml Inj (IV/IM USE ONLY) IVP PRN (08:58)
[2018-12-08] MEDS ORDERED: Lisinopril 10mg tab GT SCH (09:00)
[2018-12-08] MEDS ORDERED: Azithromycin 250mg tab GT SCH (09:00)
--- NOTE | 2018-12-08 09:19 | Infectious Diseases Prog Note ---
Assessment/Plan Assessment/Plan Assessment: Severe Sepsis- likely 2ry to PNA, r/o bacteremia, UTI. Possible Flu despite neg screen test -CXR: Bilateral diffuse interstitial and airspace infiltrates versus edema, worsening on the right over one day -Bcx NTD -u/a wbc 40-60, nit neg, leuk large; ucx 10-20 k P. mirablis ESBL (S Meropenem, Zosyn) -sp cx p -influenza sc, legionela ag urine neg Fever, improving Leukocytosis, improving Acute respiratory failure s/p intubation 12/04 ELICIA, improving COPD DM2 HTN dysphagia s/p G-tube dementia SNF resident Plan: -Continue empiric IV Vancomycin #5 and Meropenem #4 for PNA and UTI -Continue empiric Tamiflu #4/5 -12/05 AMikacin and Ertapenem #2 -12/07/18 SP empiric Azithromycin #3 -f/u cx -Monitor CBC/CMP, temperatures -ICU, ETT care -aspiration precautions Thank you for this consultation. Will continue to follow along with you. Subjective Allergies: Coded Allergies: No Known Allergies (Unverified , 12/04/18) Subjective Patient on Vent 30% O2 Afebrile Leukocytosis resolving Objective Vital Signs Last 24 Hour Vital Signs Date Time Temp Pulse Resp B/P (MAP) Pulse Ox O2 Delivery O2 Flow Rate FiO2 12/08/18 08:55 147/76 12/08/18 08:00 99.0 85 18 140/70 (93) 100 12/08/18 08:00 88 12/08/18 08:00 Mechanical Ventilator 12/08/18 08:00 35 12/08/18 07:00 89 18 156/71 (99) 100 12/08/18 06:30 95 24 30 12/08/18 06:00 90 18 161/71 (101) 100 12/08/18 05:29 92 21 30 12/08/18 05:00 91 18 153/75 (101) 100 12/08/18 04:00 Mechanical Ventilator 12/08/18 04:00 35 12/08/18 04:00 87 12/08/18 04:00 99.3 98 18 150/83 (105) 100 12/08/18 03:21 85 18 30 12/08/18 03:00 88 18 157/77 (103) 100 12/08/18 02:00 89 18 151/78 (102) 100 12/08/18 01:29 92 18 30 12/08/18 01:00 92 17 145/75 (98) 100 12/08/18 00:00 35 12/08/18 00:00 95 12/08/18 00:00 Mechanical Ventilator 12/08/18 00:00 99.6 90 17 128/61 (83) 100 12/07/18 23:13 94 18 30 12/07/18 23:00 94 17 144/86 (105) 99 12/07/18 22:00 96 17 150/82 (104) 99 12/07/18 21:00 98 17 128/80 (96) 99 12/07/18 20:59 92 18 30 12/07/18 20:00 100.3 96 16 140/74 (96) 100 12/07/18 20:00 35 12/07/18 20:00 98 12/07/18 20:00 Mechanical Ventilator 12/07/18 19:56 99.8 12/07/18 19:08 94 16 30 12/07/18 19:00 87 18 133/70 (91) 100 12/07/18 18:00 99.0 90 18 140/77 (98) 100 12/07/18 17:00 96 19 136/72 (93) 100 12/07/18 16:49 94 17 35 12/07/18 16:00 85 18 158/80 (106) 100 12/07/18 16:00 96 12/07/18 16:00 Mechanical Ventilator 12/07/18 16:00 35 12/07/18 15:26 99 21 35 12/07/18 15:00 91 18 162/86 (111) 100 12/07/18 14:00 99 16 123/39 (67) 100 12/07/18 13:12 97 20 35 12/07/18 13:00 99.1 92 18 160/91 (114) 100 12/07/18 13:00 150/91 12/07/18 12:00 35 12/07/18 12:00 Mechanical Ventilator 12/07/18 12:00 89 12/07/18 12:00 95 18 148/81 (103) 100 12/07/18 11:24 95 18 35 12/07/18 11:00 96 18 145/80 (101) 100 12/07/18 10:00 99.0 90 20 155/78 (103) 100 12/07/18 10:00 94 18 170/97 (121) 100 12/07/18 09:19 97 23 35 Height (Feet): 5 Height (Inches): 7.00 Weight (Pounds): 164 Objective Gen: awake HEENT: NCAT, intubated Lungs: clear Heart: HR/BP stable Abdomen: soft, active bowel sounds Extremities: no C/C/E Microbiology Date/Time Source Procedure Growth Status 12/06/18 12:00 Sputum Induced Gram Stain - Final Resulted 12/06/18 12:00 Sputum Culture - Preliminary Gram Negative Bacillus 1 Resulted 12/05/18 20:00 Catheter Site Catheter Tip Culture - Preliminary Resulted Laboratory Tests Test 12/08/18 06:05 12/08/18 06:50 12/08/18 08:02 White Blood Count 11.4 K/UL (4.8-10.8) H Red Blood Count 3.55 M/UL (4.70-6.10) L Hemoglobin 9.2 G/DL (14.2-18.0) L Hematocrit 28.9 % (42.0-52.0) L Mean Corpuscular Volume 81 FL (80-99) Mean Corpuscular Hemoglobin 26.0 PG (27.0-31.0) L Mean Corpuscular Hemoglobin Concent 31.9 G/DL (32.0-36.0) L Red Cell Distribution Width 17.7 % (11.6-14.8) H Platelet Count 409 K/UL (150-450) Mean Platelet Volume 7.2 FL (6.5-10.1) Neutrophils (%) (Auto) 78.5 % (45.0-75.0) H Lymphocytes (%) (Auto) 11.1 % (20.0-45.0) L Monocytes (%) (Auto) 5.6 % (1.0-10.0) Eosinophils (%) (Auto) 3.8 % (0.0-3.0) H Basophils (%) (Auto) 0.9 % (0.0-2.0) Sodium Level 145 MMOL/L (136-145) Potassium Level 3.4 MMOL/L (3.5-5.1) L Chloride Level 107 MMOL/L (98-107) Carbon Dioxide Level 31 MMOL/L (21-32) Anion Gap 7 mmol/L (5-15) Blood Urea Nitrogen 17 mg/dL (7-18) Creatinine 1.0 MG/DL (0.55-1.30) Estimat Glomerular Filtration Rate mL/min (>60) Glucose Level 142 MG/DL (74-106) H Calcium Level 8.8 MG/DL (8.5-10.1) Phosphorus Level 3.8 MG/DL (2.5-4.9) Magnesium Level 1.5 MG/DL (1.8-2.4) L Total Bilirubin 0.4 MG/DL (0.2-1.0) Aspartate Amino Transf (AST/SGOT) 20 U/L (15-37) Alanine Aminotransferase (ALT/SGPT) 26 U/L (12-78) Alkaline Phosphatase 92 U/L (46-116) Pro-B-Type Natriuretic Peptide 2041 pg/mL (0-125) H Total Protein 7.3 G/DL (6.4-8.2) Albumin 1.4 G/DL (3.4-5.0) L Globulin 5.9 g/dL Albumin/Globulin Ratio 0.2 (1.0-2.7) L Vancomycin Level Trough 17.8 ug/mL (5.0-12.0) H Current Medications Medications (Trade) Dose Ordered Sig/Courtney Route PRN Reason Start Time Stop Time Status Last Admin Dose Admin Acetaminophen (Tylenol) 650 mg Q4H PRN ORAL fever 12/04/18 14:00 01/03/19 13:59 12/07/18 19:26 Albuterol/ Ipratropium (Albuterol/ Ipratropium) 3 ml Q4H PRN HHN Shortness of Breath 12/04/18 14:00 12/09/18 13:59 Furosemide (Lasix) 40 mg DAILY IV 12/06/18 18:00 01/05/19 17:59 12/08/18 08:56 Heparin Sodium (Porcine) (Heparin 5000 units/ml) 5,000 units EVERY 12 HOURS SUBQ 12/04/18 21:00 01/03/19 20:59 12/08/18 08:57 Lisinopril (Zestril) 10 mg DAILY GT 12/08/18 09:00 01/07/19 08:59 12/08/18 08:55 Lorazepam (Ativan 2mg/ml 1ml) 2 mg Q2H PRN IV For Anxiety 12/04/18 14:00 12/11/18 13:59 12/08/18 08:58 Magnesium Sulfate 100 ml @ 100 mls/hr Q1H IVPB 12/08/18 14:00 12/08/18 15:59 Meropenem 1 gm/ Sodium Chloride 55 ml @ 110 mls/hr Q8HR IVPB 12/06/18 14:00 12/11/18 13:59 12/08/18 05:09 Morphine Sulfate (Morphine Sulfate) 4 mg Q4H PRN IVP Severe Pain (Pain Scale 7-10) 12/04/18 14:00 12/11/18 13:59 12/08/18 08:58 Norepinephrine Bitartrate 4 mg/ Dextrose 254 ml @ 0 mls/hr Q24H IV 12/04/18 14:00 01/03/19 13:59 Oseltamivir Phosphate (Tamiflu) 75 mg TWICE A DAY ORAL 12/08/18 09:00 12/09/18 23:59 12/08/18 08:56 Pantoprazole (Protonix) 40 mg DAILY IVP 12/05/18 09:00 01/04/19 08:59 12/08/18 08:57 Potassium Chloride 100 ml @ 100 mls/hr Q1HR IVPB 12/08/18 09:00 12/08/18 12:59 Vancomycin HCl (Vanco rx to dose) 1 ea DAILY PRN MISC PER PHARM 12/04/18 15:15 01/03/19 15:14 Vancomycin HCl/ Dextrose 250 ml @ 125 mls/hr Q24H IVPB 12/06/18 09:00 12/11/18 08:59 12/08/18 08:57 Rayo Bhatti MD Dec 08, 2018 09:19
--- NOTE | 2018-12-08 09:56 | NUR ---
RD ASSESSMENT & RECOMMENDATIONS SEE CARE ACTIVITY FOR COMPLETE ASSESSMENT DAILY ESTIMATED NEEDS: Needs based on Critical care, sepsis/ 67kg 22-28 kcals/kg 7286-6120 total kcals 1.2-2 g protein/kg 80-134 g total protein 25-30 mL/kg 8300-6558 total fluid mLs NUTRITION DIAGNOSIS: Swallowing difficulty R/T dysphagia as evidenced by pt is PEG dep, on GT feeding, orally intubated at this time. CURRENT TF:Jevity 1.2 @ 60ml/hr x 22 hrs + Prosource 1pkt QD ENTERAL NUTRITION RECOMMENDATIONS: Jevity 1.2 @ 60ml/hr x 22 hrs + Prosource 1pkt QD to provide 1320ml, 1584kcal, 73g + 11g prot, 1082ml free water * Maintain current TF + Prosource 1pkt daily * Hold 1 hour before and after Synthroid med * HOB over 30 degrees/ water flush per MD WITH CONSISTENTLY ELEV BGS, REC TF CHANGE TO GLUCERNA 1.2 : Glucerna 1.2 @ 60ml/hr x 22 hrs + Prosource 1pkt QD -> 1320ml, 1584kcal, 79 +11g prot, 1062ml free water ADDITIONAL RECOMMENDATIONS: * Per SNF, HT=67", JB=883# (from 11/23/18) * Calibrated bedscale wt for accurate CBW * Monitor BGs closely, need for carb controlled TF formula, hypoglycemic agents -> h/o DM * Monitor lytes, replete as needed (low K and mag) .
--- NOTE | 2018-12-08 10:00 | NUR ---
NURSE NOTES: Patient turned and repositioned. No new orders at this time. Will continue plan of care
--- NOTE | 2018-12-08 10:13 | Diagnostic Imaging Report ---
EXAM: XR Chest, 1 View CLINICAL HISTORY: DYSPNEA TECHNIQUE: Frontal view of the chest. COMPARISON: Chest x-ray 12/07/18 FINDINGS: Lungs: Slightly improved bilateral airspace opacities. Pleural space: Similar small right pleural effusion. No pneumothorax. Heart: Unremarkable. No cardiomegaly. Mediastinum: Unremarkable. Bones/joints: Unremarkable. Tubes, lines and devices: Stable endotracheal tube. IMPRESSION: 1. Slightly improved bilateral airspace opacities. 2. Similar small right pleural effusion.
--- NOTE | 2018-12-08 12:00 | NUR ---
NURSE NOTES: No new orders at this time. VSS. No distress noted. Will continue to monitor patient.
--- NOTE | 2018-12-08 14:00 | NUR ---
NURSE NOTES: Patient turned and repositioned. Potassium replaced. No new orders at this time. Will continue to monitor patient.
--- NOTE | 2018-12-08 14:09 | Cardiac Electrophysiology PN ---
Assessment/Plan Assessment/Plan 1. Respiratory failure with elevated BNP. His echocardiogram showed ejection fraction of 55% to 60% with no active diastolic dysfunction. Continue Lasix 40 mg IV daily. 2. Pneumonia, respiratory failure on the ventilator as well as on broad- spectrum IV antibiotic per Infectious Diseases and Dr. Fritz. Probably would need Tracheostomy 3. Hypertension. The patient is on Lasix 40 mg IV daily. Will increase lisinopril 20 mg b.i.d. 4. Severe sepsis, likely due to pneumonia and bacteremia. 5. Diabetes and dysphagia, status post PEG placement. Subjective Subjective In ICU on the vent in NAD. Objective Last 24 Hour Vital Signs Date Time Temp Pulse Resp B/P (MAP) Pulse Ox O2 Delivery O2 Flow Rate FiO2 12/08/18 13:00 123 18 154/90 (111) 99 12/08/18 12:58 144/70 12/08/18 12:00 Mechanical Ventilator 12/08/18 12:00 35 12/08/18 12:00 98.8 95 16 144/70 (94) 98 12/08/18 12:00 96 12/08/18 11:08 89 19 30 12/08/18 11:00 95 18 128/75 (92) 99 12/08/18 10:00 102 18 140/68 (92) 100 12/08/18 09:00 80 18 138/68 (91) 100 12/08/18 08:55 147/76 12/08/18 08:45 98 20 30 12/08/18 08:00 99.0 85 18 140/70 (93) 100 12/08/18 08:00 88 12/08/18 08:00 Mechanical Ventilator 12/08/18 08:00 35 12/08/18 07:00 89 18 156/71 (99) 100 12/08/18 06:30 95 24 30 12/08/18 06:00 90 18 161/71 (101) 100 12/08/18 05:29 92 21 30 12/08/18 05:00 91 18 153/75 (101) 100 12/08/18 04:00 Mechanical Ventilator 12/08/18 04:00 35 12/08/18 04:00 87 12/08/18 04:00 99.3 98 18 150/83 (105) 100 12/08/18 03:21 85 18 30 12/08/18 03:00 88 18 157/77 (103) 100 12/08/18 02:00 89 18 151/78 (102) 100 12/08/18 01:29 92 18 30 12/08/18 01:00 92 17 145/75 (98) 100 12/08/18 00:00 35 12/08/18 00:00 95 12/08/18 00:00 Mechanical Ventilator 12/08/18 00:00 99.6 90 17 128/61 (83) 100 12/07/18 23:13 94 18 30 12/07/18 23:00 94 17 144/86 (105) 99 12/07/18 22:00 96 17 150/82 (104) 99 12/07/18 21:00 98 17 128/80 (96) 99 12/07/18 20:59 92 18 30 12/07/18 20:00 100.3 96 16 140/74 (96) 100 12/07/18 20:00 35 12/07/18 20:00 98 12/07/18 20:00 Mechanical Ventilator 12/07/18 19:56 99.8 12/07/18 19:08 94 16 30 12/07/18 19:00 87 18 133/70 (91) 100 12/07/18 18:00 99.0 90 18 140/77 (98) 100 12/07/18 17:00 96 19 136/72 (93) 100 12/07/18 16:49 94 17 35 12/07/18 16:00 85 18 158/80 (106) 100 12/07/18 16:00 96 12/07/18 16:00 Mechanical Ventilator 12/07/18 16:00 35 12/07/18 15:26 99 21 35 12/07/18 15:00 91 18 162/86 (111) 100 Intake and Output 12/07/18 12/08/18 18:59 06:59 Intake Total 715 ml 720 ml Output Total 1170 ml 485 ml Balance -455 ml 235 ml IV Total 55 ml Tube Feeding 660 ml 720 ml Output Urine Total 1170 ml 485 ml # Bowel Movements 1 Laboratory Tests Test 12/08/18 06:05 12/08/18 06:50 12/08/18 08:02 White Blood Count 11.4 K/UL (4.8-10.8) H Red Blood Count 3.55 M/UL (4.70-6.10) L Hemoglobin 9.2 G/DL (14.2-18.0) L Hematocrit 28.9 % (42.0-52.0) L Mean Corpuscular Volume 81 FL (80-99) Mean Corpuscular Hemoglobin 26.0 PG (27.0-31.0) L Mean Corpuscular Hemoglobin Concent 31.9 G/DL (32.0-36.0) L Red Cell Distribution Width 17.7 % (11.6-14.8) H Platelet Count 409 K/UL (150-450) Mean Platelet Volume 7.2 FL (6.5-10.1) Neutrophils (%) (Auto) 78.5 % (45.0-75.0) H Lymphocytes (%) (Auto) 11.1 % (20.0-45.0) L Monocytes (%) (Auto) 5.6 % (1.0-10.0) Eosinophils (%) (Auto) 3.8 % (0.0-3.0) H Basophils (%) (Auto) 0.9 % (0.0-2.0) Sodium Level 145 MMOL/L (136-145) Potassium Level 3.4 MMOL/L (3.5-5.1) L Chloride Level 107 MMOL/L (98-107) Carbon Dioxide Level 31 MMOL/L (21-32) Anion Gap 7 mmol/L (5-15) Blood Urea Nitrogen 17 mg/dL (7-18) Creatinine 1.0 MG/DL (0.55-1.30) Estimat Glomerular Filtration Rate mL/min (>60) Glucose Level 142 MG/DL (74-106) H Calcium Level 8.8 MG/DL (8.5-10.1) Phosphorus Level 3.8 MG/DL (2.5-4.9) Magnesium Level 1.5 MG/DL (1.8-2.4) L Total Bilirubin 0.4 MG/DL (0.2-1.0) Aspartate Amino Transf (AST/SGOT) 20 U/L (15-37) Alanine Aminotransferase (ALT/SGPT) 26 U/L (12-78) Alkaline Phosphatase 92 U/L (46-116) Pro-B-Type Natriuretic Peptide 2041 pg/mL (0-125) H Total Protein 7.3 G/DL (6.4-8.2) Albumin 1.4 G/DL (3.4-5.0) L Globulin 5.9 g/dL Albumin/Globulin Ratio 0.2 (1.0-2.7) L Vancomycin Level Trough 17.8 ug/mL (5.0-12.0) H Microbiology Date/Time Source Procedure Growth Status 12/06/18 12:00 Sputum Induced Gram Stain - Final Resulted 12/06/18 12:00 Sputum Culture - Preliminary Gram Negative Bacillus 1 Resulted 12/05/18 20:00 Catheter Site Catheter Tip Culture - Preliminary Gram Positive Cocci Resulted Objective HEAD AND NECK: Orally intubated. LUNGS: Coarse rhonchi. CARDIOVASCULAR: Regular S1 and S2 and mildly tachycardic. ABDOMEN: Status post G-tube. EXTREMITIES: No pitting edema. Darrell Cevallos MD Dec 08, 2018 14:09
--- NOTE | 2018-12-08 15:00 | Internal Med Progress Note ---
Subjective Date of Service: Dec 08, 2018 Physician Name Carson,Roni Attending Physician Isaiah Fritz MD Current Medications Medications (Trade) Dose Ordered Sig/Courtney Route PRN Reason Start Time Stop Time Status Last Admin Dose Admin Acetaminophen (Tylenol) 650 mg Q4H PRN ORAL fever 12/04/18 14:00 01/03/19 13:59 12/07/18 19:26 Albuterol/ Ipratropium (Albuterol/ Ipratropium) 3 ml Q4H PRN HHN Shortness of Breath 12/04/18 14:00 12/09/18 13:59 Furosemide (Lasix) 40 mg DAILY IV 12/06/18 18:00 01/05/19 17:59 12/08/18 08:56 Heparin Sodium (Porcine) (Heparin 5000 units/ml) 5,000 units EVERY 12 HOURS SUBQ 12/04/18 21:00 01/03/19 20:59 12/08/18 08:57 Levothyroxine Sodium (Synthroid) 25 mcg DAILY@0630 ORAL 12/09/18 06:30 01/08/19 06:29 Lisinopril (Zestril) 20 mg BID GT 12/08/18 18:00 01/07/19 08:59 Lorazepam (Ativan 2mg/ml 1ml) 2 mg Q2H PRN IV For Anxiety 12/04/18 14:00 12/11/18 13:59 12/08/18 08:58 Magnesium Sulfate 100 ml @ 100 mls/hr Q1H IVPB 12/08/18 14:00 12/08/18 15:59 Meropenem 1 gm/ Sodium Chloride 55 ml @ 110 mls/hr Q8HR IVPB 12/06/18 14:00 12/11/18 13:59 12/08/18 05:09 Morphine Sulfate (Morphine Sulfate) 4 mg Q4H PRN IVP Severe Pain (Pain Scale 7-10) 12/04/18 14:00 12/11/18 13:59 12/08/18 08:58 Norepinephrine Bitartrate 4 mg/ Dextrose 254 ml @ 0 mls/hr Q24H IV 12/04/18 14:00 01/03/19 13:59 Oseltamivir Phosphate (Tamiflu) 75 mg TWICE A DAY ORAL 12/08/18 09:00 12/09/18 23:59 12/08/18 08:56 Pantoprazole (Protonix) 40 mg DAILY IVP 12/05/18 09:00 01/04/19 08:59 12/08/18 08:57 Vancomycin HCl (Vanco rx to dose) 1 ea DAILY PRN MISC PER PHARM 12/04/18 15:15 01/03/19 15:14 Vancomycin HCl/ Dextrose 250 ml @ 125 mls/hr Q24H IVPB 12/06/18 09:00 12/11/18 08:59 12/08/18 08:57 Allergies: Coded Allergies: No Known Allergies (Unverified , 12/04/18) ROS Limited/Unobtainable: Yes Subjective 73 YO M admitted with respiratory failure. Now pneumonia. Intubated and sedated. ICU. Cover for Int Med-Dr Matthews Objective Last Vital Signs Date Time Temp Pulse Resp B/P (MAP) Pulse Ox O2 Delivery O2 Flow Rate FiO2 12/08/18 14:00 102 18 135/74 (94) 99 12/08/18 12:35 30 12/08/18 12:00 Mechanical Ventilator 12/08/18 12:00 98.8 12/04/18 16:00 4.0 Laboratory Tests Test 12/08/18 06:05 12/08/18 06:50 12/08/18 08:02 White Blood Count 11.4 K/UL (4.8-10.8) H Red Blood Count 3.55 M/UL (4.70-6.10) L Hemoglobin 9.2 G/DL (14.2-18.0) L Hematocrit 28.9 % (42.0-52.0) L Mean Corpuscular Volume 81 FL (80-99) Mean Corpuscular Hemoglobin 26.0 PG (27.0-31.0) L Mean Corpuscular Hemoglobin Concent 31.9 G/DL (32.0-36.0) L Red Cell Distribution Width 17.7 % (11.6-14.8) H Platelet Count 409 K/UL (150-450) Mean Platelet Volume 7.2 FL (6.5-10.1) Neutrophils (%) (Auto) 78.5 % (45.0-75.0) H Lymphocytes (%) (Auto) 11.1 % (20.0-45.0) L Monocytes (%) (Auto) 5.6 % (1.0-10.0) Eosinophils (%) (Auto) 3.8 % (0.0-3.0) H Basophils (%) (Auto) 0.9 % (0.0-2.0) Sodium Level 145 MMOL/L (136-145) Potassium Level 3.4 MMOL/L (3.5-5.1) L Chloride Level 107 MMOL/L (98-107) Carbon Dioxide Level 31 MMOL/L (21-32) Anion Gap 7 mmol/L (5-15) Blood Urea Nitrogen 17 mg/dL (7-18) Creatinine 1.0 MG/DL (0.55-1.30) Estimat Glomerular Filtration Rate mL/min (>60) Glucose Level 142 MG/DL (74-106) H Calcium Level 8.8 MG/DL (8.5-10.1) Phosphorus Level 3.8 MG/DL (2.5-4.9) Magnesium Level 1.5 MG/DL (1.8-2.4) L Total Bilirubin 0.4 MG/DL (0.2-1.0) Aspartate Amino Transf (AST/SGOT) 20 U/L (15-37) Alanine Aminotransferase (ALT/SGPT) 26 U/L (12-78) Alkaline Phosphatase 92 U/L (46-116) Pro-B-Type Natriuretic Peptide 2041 pg/mL (0-125) H Total Protein 7.3 G/DL (6.4-8.2) Albumin 1.4 G/DL (3.4-5.0) L Globulin 5.9 g/dL Albumin/Globulin Ratio 0.2 (1.0-2.7) L Vancomycin Level Trough 17.8 ug/mL (5.0-12.0) H Microbiology Date/Time Source Procedure Growth Status 12/06/18 12:00 Sputum Induced Gram Stain - Final Resulted 12/06/18 12:00 Sputum Culture - Preliminary Gram Negative Bacillus 1 Resulted 12/05/18 20:00 Catheter Site Catheter Tip Culture - Preliminary Gram Positive Cocci Resulted Intake and Output 12/07/18 12/08/18 18:59 06:59 Intake Total 715 ml 720 ml Output Total 1170 ml 485 ml Balance -455 ml 235 ml IV Total 55 ml Tube Feeding 660 ml 720 ml Output Urine Total 1170 ml 485 ml # Bowel Movements 1 Objective General Appearance: WD/WN, no apparent distress, lethargic EENT: PERRL/EOMI, normal ENT inspection Neck: non-tender, normal alignment, supple, normal inspection Cardiovascular: normal peripheral pulses, normal rate, regular rhythm, no gallop/murmur, no JVD Respiratory/Chest: Mech vent; chest wall non-tender, respiratory distress, crackles/rales, rhonchi - bilaterally, expiratory wheezing Abdomen: normal bowel sounds, non tender, soft, no organomegaly, no mass Extremities: normal range of motion, non-tender Skin: normal pigmentation, warm/dry Assessment/Plan Problem List: (1) Pneumonia Assessment & Plan: See ID note. Continue meropenem, vanco tamiflu and azithromycin. (2) Anemia Assessment & Plan: S/P tansfusion 2 units PRBC 12/05/18. (3) Elevated troponin Assessment & Plan: See cardiology consult. (4) COPD (chronic obstructive pulmonary disease) (5) HTN (hypertension) Assessment & Plan: Currently on levophed (6) CHF (congestive heart failure) Assessment & Plan: LVEF=55-60% (7) Diabetes mellitus, type II (8) Chronic renal failure Assessment & Plan: See nephrology note. (9) Dysphagia (10) CAD (coronary artery disease) (11) Acute respiratory failure Assessment & Plan: Continue mech vent per pulm (12) Hypothyroidism Status: not improved Roni Carson MD Dec 08, 2018 15:00
--- NOTE | 2018-12-08 16:00 | NUR ---
NURSE NOTES: Patient turned and repositioned. No new orders. Will continue plan of care.
[2018-12-08] MEDS ORDERED: NS 275ml ONE (17:14)
--- NOTE | 2018-12-08 18:00 | NUR ---
NURSE NOTES: VSS. No new orders. Patient turned and repositioned Will continue plan of care.
[2018-12-08] MEDS: Lisinopril 10mg tab GT SCH (18:21)
--- NOTE | 2018-12-08 19:08 | NUR ---
HAND-OFF: Report given to Judith RN using SBAR. VSS. No distress noted..
--- NOTE | 2018-12-08 19:30 | NUR ---
NURSE NOTES: Recdeived pt in no apparent distress. Asleep but arousable to name and touch. Still orally intubated and appears to be tolerating current vent parameters; fiO2.35, saturating 99-100. Secretions moderate, thick via ETT. skin warm; temp 99.3 axillary; ST on the monitor , BP stable. Left arm/hand edematous. IV site on LFA infiltrated. Left EJ IV site clogged as well. Both IV sites dc'd. Pt remains impulsive; bilat soft wrist restraints maintained. PEG patent;GTF with Glucerna 1.2 running at 60ml/h with 0 residuals. FC intact; skin intact. Will continue to monitor
--- NOTE | 2018-12-08 21:00 | NUR ---
NURSE NOTES: Restarted a new saline lock on left hand using g22 angiocath.
[2018-12-09] VITALS (23 sets, daily range): BP systolic 106–159; BP diastolic 49–103
--- NOTE | 2018-12-09 | NUR ---
NURSE NOTES: Calm, asleep; no distress; VSS, afebrile. Renewed Soft wrist restraints.
--- NOTE | 2018-12-09 02:00 | NUR ---
NURSE NOTES: Asleep on rounds; no distress; VSS
--- NOTE | 2018-12-09 04:00 | NUR ---
NURSE NOTES: No BM; completed bath. Skin remains intact. Saline lock on left hand intact; Secretions thick, creamy, moderate via ETT. VSS. Afebrile. Tolerating GTF and current vent settings
[2018-12-09] MEDS: Meropenem 1 GM in NS 55 ML IVPB SCH ×3 (05:50→22:28)
[2018-12-09] MEDS: Levothyroxine 25mcg tab ORAL SCH (05:50)
[2018-12-09 07:10] LABS: BASOPHILS % (AUTO) 1.1 % (0.0-2.0); EOSINOPHILS % (AUTO) 3.2 % (0.0-3.0); HEMATOCRIT 29.7 % (42.0-52.0); HEMOGLOBIN 9.3 G/DL (14.2-18.0); LYMPHOCYTES % (AUTO) 14.6 % (20.0-45.0); MEAN CORPUSCULAR VOLUME 81 FL (80-99); MONOCYTES % (AUTO) 6.5 % (1.0-10.0); NEUTROPHILS % (AUTO) 74.7 % (45.0-75.0); PLATELET COUNT 438 K/UL (150-450); RED BLOOD COUNT 3.65 M/UL (4.70-6.10); RED CELL DISTRIBUTION WIDTH 17.6 % (11.6-14.8); WHITE BLOOD COUNT 13.7 K/UL (4.8-10.8)
--- NOTE | 2018-12-09 07:10 | NUR ---
HAND-OFF: Report given to Lakeshia Watson RN.
--- NOTE | 2018-12-09 07:13 | NUR ---
NURSE NOTES: Received pt in no apparent distress. Asleep but arousable to name and touch. Still orally intubated and appears to be tolerating current vent parameters; fiO2.35, saturating 99-100. Secretions moderate, thick via ETT. skin warm; temp 98.6 axillary; ST on the monitor , BP stable. IV site on LFA infiltrated, D/C'd. Pt remains impulsive; bilat soft wrist restraints maintained. PEG patent;GTF with Jevity running at 60ml/h with 0 residuals. FC intact; skin intact. Will continue to monitor
--- NOTE | 2018-12-09 07:26 | NUR ---
RESPIRATORY NOTE: Patient received mechanically ventilated on PB 840 with current ordered vent settings. Patient is orally intubated with ETT tube size 8.0 with 23cm at the lip line and secured with an anchor fast. Patient presents with bilateral coarse breath sounds and suctioned moderate amount of thick pale/yellow secretions without incident. There is an ambu bag available at the bedside and the vent is connected to a red outlet. Vent alarms are functional and audible. Will continue to monitor patient.
[2018-12-09 07:27] LABS: ALANINE AMINOTRANSFERASE 25 U/L (12-78); ALBUMIN 1.5 G/DL (3.4-5.0); ALBUMIN/GLOBULIN RATIO 0.2 (1.0-2.7); ALKALINE PHOSPHATASE 93 U/L (46-116); ANION GAP 9 mmol/L (5-15); ASPARTATE AMINO TRANSFERASE 19 U/L (15-37); BILIRUBIN,TOTAL 0.4 MG/DL (0.2-1.0); BLOOD UREA NITROGEN 17 mg/dL (7-18); CALCIUM 9.1 MG/DL (8.5-10.1); CARBON DIOXIDE 30 MMOL/L (21-32); CHLORIDE 104 MMOL/L (98-107); CREATININE 1.1 MG/DL (0.55-1.30); PHOSPHORUS 3.7 MG/DL (2.5-4.9); POTASSIUM 3.8 MMOL/L (3.5-5.1); SODIUM 143 MMOL/L (136-145)
[2018-12-09] MEDS: Lisinopril 10mg tab GT SCH ×2 (08:09→17:51)
[2018-12-09] MEDS: Oseltamivir 75mg cap ORAL SCH ×2 (08:10→17:51)
[2018-12-09] MEDS: Pantoprazole Inj IVP SCH (08:10)
[2018-12-09] MEDS: Heparin 5000 units/ml inj SUBQ SCH ×2 (08:11→20:26)
--- NOTE | 2018-12-09 08:11 | NUR ---
NURSE NOTES: Tolerating weaning well. No s/sx of respiratory distress noted. Oral care given. Turned and repositioned.
--- NOTE | 2018-12-09 10:04 | Diagnostic Imaging Report ---
EXAM: XR Chest, 1 View CLINICAL HISTORY: DYSPNEA TECHNIQUE: Frontal view of the chest. COMPARISON: 12/08/18 744 FINDINGS: Lungs: Stable bilateral airspace opacities. Pleural space: Unremarkable. No pneumothorax. Heart: Unremarkable. No cardiomegaly. Mediastinum: Unremarkable. Bones/joints: Unremarkable. Tubes, lines and devices: Stable endotracheal tube. IMPRESSION: No significant interval change.
--- NOTE | 2018-12-09 10:04 | NUR ---
NURSE NOTES: Removed IV on LFA, inserted new 22G IV on Right foot. OK to insert IV on foot per Dr. Fritz as pt has ch. DVT on right arm.
[2018-12-09] MEDS: Vancomycin 1.5 GM/D5W 250ML IVPB SCH (10:07)
--- NOTE | 2018-12-09 11:11 | Cardiology Report ---
APPROVED REPORT EKG Measurement Heart [id number] Normal sinus rhythm Normal ECG
--- NOTE | 2018-12-09 12:19 | NUR ---
NURSE NOTES: Turned and repositioned. Oral care given. No s/sx of acute resp distress. Tolerating weaning well.
--- NOTE | 2018-12-09 12:31 | Pulmonolgy Critical Care Note ---
Critical Care - Asmt/Plan Problems: (1) Acute respiratory failure (2) Septic shock (3) Hypothyroidism (4) History of hypertension (5) Feeding by G-tube Respiratory: monitor respiratory rate, adjust FIO2, CXR, ABG Cardiac: continue to monitor HR/BP Renal: F/U I&O, keep IV fluid, check electrolytes Infectious Disease: check cultures Gastrointestinal: continue feedings/current rate Endocrine: monitor blood sugar, check TSH, check HgA1C Hematologic: transfuse if hgb<8.5 Neurologic: PRN Morphine, keep patient comfortable Prophylaxis: Protonix, Heparin Time Spent (Minutes): 40 Notes Reviewed: cardio, renal Discussed with: nurses, consultants, case management rnaccreditation manager - Objective Last 24 Hour Vital Signs Date Time Temp Pulse Resp B/P (MAP) Pulse Ox O2 Delivery O2 Flow Rate FiO2 12/09/18 12:00 98.9 106 18 136/79 (98) 99 12/09/18 12:00 Mechanical Ventilator 12/09/18 12:00 30 12/09/18 11:28 104 29 30 12/09/18 11:00 103 18 135/81 (99) 99 12/09/18 10:00 104 23 147/64 (91) 98 12/09/18 09:00 108 25 136/73 (94) 98 12/09/18 08:45 110 26 30 12/09/18 08:09 139/77 12/09/18 08:00 Mechanical Ventilator 12/09/18 08:00 109 22 136/103 (114) 99 12/09/18 08:00 30 12/09/18 07:49 100 12/09/18 07:21 101 18 30 12/09/18 07:00 102 18 143/93 (110) 100 12/09/18 06:00 105 18 139/77 (97) 99 12/09/18 05:10 97 16 30 12/09/18 05:00 104 22 138/82 (100) 100 12/09/18 04:00 Mechanical Ventilator 12/09/18 04:00 102 12/09/18 04:00 98.7 102 17 141/77 (98) 99 12/09/18 04:00 35 12/09/18 03:15 99 17 30 12/09/18 03:00 100 15 141/81 (101) 99 12/09/18 02:00 107 18 146/80 (102) 99 12/09/18 01:28 107 19 30 12/09/18 01:00 108 19 159/84 (109) 99 12/09/18 00:00 108 12/09/18 00:00 35 12/09/18 00:00 97.8 108 18 144/85 (104) 99 12/09/18 00:00 Mechanical Ventilator 12/08/18 23:23 107 20 30 12/08/18 23:00 108 17 142/73 (96) 99 12/08/18 22:00 108 18 144/82 (102) 99 12/08/18 21:00 109 19 30 12/08/18 21:00 105 18 142/87 (105) 99 12/08/18 20:00 35 12/08/18 20:00 99.3 105 19 141/79 (99) 99 12/08/18 20:00 Mechanical Ventilator 12/08/18 20:00 105 12/08/18 19:05 110 19 30 12/08/18 19:00 102 18 135/68 (90) 100 12/08/18 18:21 151/77 12/08/18 18:00 115 18 145/77 (99) 100 12/08/18 17:00 85 18 144/80 (101) 100 12/08/18 16:45 103 18 30 12/08/18 16:00 98.9 90 18 140/77 (98) 99 12/08/18 16:00 Mechanical Ventilator 12/08/18 16:00 98 12/08/18 16:00 35 12/08/18 15:15 99 17 30 12/08/18 15:00 103 18 148/86 (106) 100 12/08/18 14:00 102 18 135/74 (94) 99 12/08/18 13:00 123 18 154/90 (111) 99 12/08/18 12:58 144/70 12/08/18 12:35 108 25 30 Status: awake Condition: critical Lungs: chest wall tender Heart: regular Abdomen: soft, active bowel sounds Extremities: no C/C/E, edema Accucheck: 101 Critical Care - Subjective ROS Limited/Unobtainable: Yes Condition: critical EKG Rhythm: Sinus Rhythm FI02: 30 Vent Support Breath Rate: 16 Vent Support Mode: CPAP Vent Tidal Volume: 600 Sputum Amount: Moderate PEEP: 0.0 PIP: 9 Tube Feeding Amount: 60 I&O: Intake and Output 12/08/18 12/09/18 19:00 07:00 Intake Total 955 ml 915 ml Output Total 610 ml 870 ml Balance 345 ml 45 ml IV Total 235 ml 165 ml Tube Feeding 720 ml 720 ml Other 30 ml Output Urine Total 610 ml 870 ml # Bowel Movements 3 CXR: bilateral infiltrate ET-Tube: 8.0 ET Position: 23 Labs: Laboratory Tests Test 12/09/18 05:30 12/09/18 08:58 White Blood Count 13.7 K/UL (4.8-10.8) H Red Blood Count 3.65 M/UL (4.70-6.10) L Hemoglobin 9.3 G/DL (14.2-18.0) L Hematocrit 29.7 % (42.0-52.0) L Mean Corpuscular Volume 81 FL (80-99) Mean Corpuscular Hemoglobin 25.6 PG (27.0-31.0) L Mean Corpuscular Hemoglobin Concent 31.4 G/DL (32.0-36.0) L Red Cell Distribution Width 17.6 % (11.6-14.8) H Platelet Count 438 K/UL (150-450) Mean Platelet Volume 6.4 FL (6.5-10.1) L Neutrophils (%) (Auto) 74.7 % (45.0-75.0) Lymphocytes (%) (Auto) 14.6 % (20.0-45.0) L Monocytes (%) (Auto) 6.5 % (1.0-10.0) Eosinophils (%) (Auto) 3.2 % (0.0-3.0) H Basophils (%) (Auto) 1.1 % (0.0-2.0) Sodium Level 143 MMOL/L (136-145) Potassium Level 3.8 MMOL/L (3.5-5.1) Chloride Level 104 MMOL/L (98-107) Carbon Dioxide Level 30 MMOL/L (21-32) Anion Gap 9 mmol/L (5-15) Blood Urea Nitrogen 17 mg/dL (7-18) Creatinine 1.1 MG/DL (0.55-1.30) Estimat Glomerular Filtration Rate mL/min (>60) Glucose Level 124 MG/DL (74-106) H Calcium Level 9.1 MG/DL (8.5-10.1) Phosphorus Level 3.7 MG/DL (2.5-4.9) Magnesium Level 1.8 MG/DL (1.8-2.4) Total Bilirubin 0.4 MG/DL (0.2-1.0) Aspartate Amino Transf (AST/SGOT) 19 U/L (15-37) Alanine Aminotransferase (ALT/SGPT) 25 U/L (12-78) Alkaline Phosphatase 93 U/L (46-116) Total Protein 7.6 G/DL (6.4-8.2) Albumin 1.5 G/DL (3.4-5.0) L Globulin 6.1 g/dL Albumin/Globulin Ratio 0.2 (1.0-2.7) L Arterial Blood pH 7.511 (7.350-7.450) Arterial Blood Partial Pressure CO2 41.6 mmHg (35.0-45.0) Arterial Blood Partial Pressure O2 78.1 mmHg (75.0-100.0) Arterial Blood HCO3 32.5 mmol/L (22.0-26.0) H Arterial Blood Oxygen Saturation 94.8 % (95-100) L Arterial Blood Base Excess 8.7 (-2-2) H Aroldo Test Positive Isaiah Fritz MD Dec 09, 2018 12:31
--- NOTE | 2018-12-09 13:27 | Internal Med Progress Note ---
Subjective Physician Name Roni Carson Attending Physician Isaiah Fritz MD Current Medications Medications (Trade) Dose Ordered Sig/Courtney Route PRN Reason Start Time Stop Time Status Last Admin Dose Admin Acetaminophen (Tylenol) 650 mg Q4H PRN ORAL fever 12/04/18 14:00 01/03/19 13:59 12/07/18 19:26 Albuterol/ Ipratropium (Albuterol/ Ipratropium) 3 ml Q4H PRN HHN Shortness of Breath 12/04/18 14:00 12/09/18 13:59 Furosemide (Lasix) 40 mg DAILY IV 12/06/18 18:00 01/05/19 17:59 12/09/18 08:10 Heparin Sodium (Porcine) (Heparin 5000 units/ml) 5,000 units EVERY 12 HOURS SUBQ 12/04/18 21:00 01/03/19 20:59 12/09/18 08:11 Levothyroxine Sodium (Synthroid) 25 mcg DAILY@0630 ORAL 12/09/18 06:30 01/08/19 06:29 12/09/18 05:50 Lisinopril (Zestril) 20 mg BID GT 12/08/18 18:00 01/07/19 08:59 12/09/18 08:09 Lorazepam (Ativan 2mg/ml 1ml) 2 mg Q2H PRN IV For Anxiety 12/04/18 14:00 12/11/18 13:59 12/08/18 08:58 Meropenem 1 gm/ Sodium Chloride 55 ml @ 110 mls/hr Q8HR IVPB 12/06/18 14:00 12/11/18 13:59 12/09/18 05:50 Morphine Sulfate (Morphine Sulfate) 4 mg Q4H PRN IVP Severe Pain (Pain Scale 7-10) 12/04/18 14:00 12/11/18 13:59 12/08/18 08:58 Norepinephrine Bitartrate 4 mg/ Dextrose 254 ml @ 0 mls/hr Q24H IV 12/04/18 14:00 01/03/19 13:59 Oseltamivir Phosphate (Tamiflu) 75 mg TWICE A DAY ORAL 12/08/18 09:00 12/09/18 23:59 12/09/18 08:10 Pantoprazole (Protonix) 40 mg DAILY IVP 12/05/18 09:00 01/04/19 08:59 12/09/18 08:10 Vancomycin HCl (Vanco rx to dose) 1 ea DAILY PRN MISC PER PHARM 12/04/18 15:15 01/03/19 15:14 Vancomycin HCl/ Dextrose 250 ml @ 125 mls/hr Q24H IVPB 12/06/18 09:00 12/11/18 08:59 12/09/18 10:07 Allergies: Coded Allergies: No Known Allergies (Unverified , 12/04/18) Subjective 73 YO M admitted with respiratory failure. Now pneumonia. Intubated and sedated. ICU. Cover for Int Garret-Dr Matthews Objective Last Vital Signs Date Time Temp Pulse Resp B/P (MAP) Pulse Ox O2 Delivery O2 Flow Rate FiO2 12/09/18 12:44 102 24 30 12/09/18 12:00 98.9 136/79 (98) 99 12/09/18 12:00 Mechanical Ventilator 12/04/18 16:00 4.0 Laboratory Tests Test 12/09/18 05:30 12/09/18 08:58 White Blood Count 13.7 K/UL (4.8-10.8) H Red Blood Count 3.65 M/UL (4.70-6.10) L Hemoglobin 9.3 G/DL (14.2-18.0) L Hematocrit 29.7 % (42.0-52.0) L Mean Corpuscular Volume 81 FL (80-99) Mean Corpuscular Hemoglobin 25.6 PG (27.0-31.0) L Mean Corpuscular Hemoglobin Concent 31.4 G/DL (32.0-36.0) L Red Cell Distribution Width 17.6 % (11.6-14.8) H Platelet Count 438 K/UL (150-450) Mean Platelet Volume 6.4 FL (6.5-10.1) L Neutrophils (%) (Auto) 74.7 % (45.0-75.0) Lymphocytes (%) (Auto) 14.6 % (20.0-45.0) L Monocytes (%) (Auto) 6.5 % (1.0-10.0) Eosinophils (%) (Auto) 3.2 % (0.0-3.0) H Basophils (%) (Auto) 1.1 % (0.0-2.0) Sodium Level 143 MMOL/L (136-145) Potassium Level 3.8 MMOL/L (3.5-5.1) Chloride Level 104 MMOL/L (98-107) Carbon Dioxide Level 30 MMOL/L (21-32) Anion Gap 9 mmol/L (5-15) Blood Urea Nitrogen 17 mg/dL (7-18) Creatinine 1.1 MG/DL (0.55-1.30) Estimat Glomerular Filtration Rate mL/min (>60) Glucose Level 124 MG/DL (74-106) H Calcium Level 9.1 MG/DL (8.5-10.1) Phosphorus Level 3.7 MG/DL (2.5-4.9) Magnesium Level 1.8 MG/DL (1.8-2.4) Total Bilirubin 0.4 MG/DL (0.2-1.0) Aspartate Amino Transf (AST/SGOT) 19 U/L (15-37) Alanine Aminotransferase (ALT/SGPT) 25 U/L (12-78) Alkaline Phosphatase 93 U/L (46-116) Total Protein 7.6 G/DL (6.4-8.2) Albumin 1.5 G/DL (3.4-5.0) L Globulin 6.1 g/dL Albumin/Globulin Ratio 0.2 (1.0-2.7) L Arterial Blood pH 7.511 (7.350-7.450) Arterial Blood Partial Pressure CO2 41.6 mmHg (35.0-45.0) Arterial Blood Partial Pressure O2 78.1 mmHg (75.0-100.0) Arterial Blood HCO3 32.5 mmol/L (22.0-26.0) H Arterial Blood Oxygen Saturation 94.8 % (95-100) L Arterial Blood Base Excess 8.7 (-2-2) H Aroldo Test Positive Intake and Output 12/08/18 12/09/18 18:59 06:59 Intake Total 955 ml 915 ml Output Total 540 ml 870 ml Balance 415 ml 45 ml IV Total 235 ml 165 ml Tube Feeding 720 ml 720 ml Other 30 ml Output Urine Total 540 ml 870 ml # Bowel Movements 3 Objective General Appearance: WD/WN, no apparent distress, lethargic EENT: PERRL/EOMI, normal ENT inspection Neck: non-tender, normal alignment, supple, normal inspection Cardiovascular: normal peripheral pulses, normal rate, regular rhythm, no gallop/murmur, no JVD Respiratory/Chest: Mech vent; chest wall non-tender, respiratory distress, crackles/rales, rhonchi - bilaterally, expiratory wheezing Abdomen: normal bowel sounds, non tender, soft, no organomegaly, no mass Extremities: normal range of motion, non-tender Skin: normal pigmentation, warm/dry Assessment/Plan Problem List: (1) Pneumonia Assessment & Plan: See ID note. Continue meropenem, vanco tamiflu and azithromycin. (2) Anemia Assessment & Plan: S/P tansfusion 2 units PRBC 12/05/18. (3) Elevated troponin Assessment & Plan: See cardiology consult. (4) COPD (chronic obstructive pulmonary disease) (5) HTN (hypertension) Assessment & Plan: Currently on levophed (6) CHF (congestive heart failure) Assessment & Plan: LVEF=55-60% (7) Diabetes mellitus, type II (8) Chronic renal failure Assessment & Plan: See nephrology note. (9) Dysphagia (10) CAD (coronary artery disease) (11) Acute respiratory failure Assessment & Plan: Continue mech vent per pulm (12) Hypothyroidism Status: not improved Roni Carson MD Dec 09, 2018 13:27
--- NOTE | 2018-12-09 14:04 | NUR ---
NURSE NOTES: Replaced TF with new bag. No residual noted. HOB 35 degrees. FC draining well. Pt kept clean and dry.
[2018-12-09] MEDS: LORazepam Inj 2mg/ml 1ml IV PRN (15:42)
--- NOTE | 2018-12-09 15:53 | NUR ---
NURSE NOTES: Ativan given for agitation and vent settings back on AC mode.
[2018-12-09] MEDS ORDERED: NS 275ml ONE (17:20)
--- NOTE | 2018-12-09 17:48 | NUR ---
NURSE NOTES: No s/sx of acute distress noted. VSS. Kept dry and clean. GTF infusing well, no residual noted. HOB 35 degrees. Turned and repositioned.
--- NOTE | 2018-12-09 19:19 | NUR ---
HAND-OFF: Report given to DARIANA Huitron using SBAR. No change in condition.
--- NOTE | 2018-12-09 19:20 | NUR ---
NURSE NOTES: Endorsement received from Tiesha Martinez Patient opens eyes spontaneously, orally intubated with ET 8.0, 23 lipline. AC 16, Vt 600, 30% FiO2. With GT patent and intact. Ongoing Jevity 1.2 at 60ml/hr. No residual noted. With yeung catheter F 16, draining to urimeter. G 22 IV at right foot. No shortness of breath. No signs of pain. Head of bed elevated. Call light within reach. Bed locked and in low position. Bed alarm on.
--- NOTE | 2018-12-09 19:24 | NUR ---
RESPIRATORY NOTE: PT. RECEIVED STABLE ON AC 16, 600, 30%. ALARMS ON AND AUDIBLE. VENT CIRCUIT AND SX TUBING SECURE AND OUT OF THE WAY. NO S/S OF RESPIRATORY DISTRESS NOTED AT THIS TIME. WILL CONTINUE TO MONITOR.
--- NOTE | 2018-12-09 21:00 | NUR ---
NURSE NOTES: Inserted g24 at left hand with good backflow and no resistance when flushed.
--- NOTE | 2018-12-09 23:00 | NUR ---
NURSE NOTES: Patient asleep. Vital signs stable.
[2018-12-10] VITALS (24 sets, daily range): BP systolic 113–144; BP diastolic 60–97
--- NOTE | 2018-12-10 01:00 | NUR ---
NURSE NOTES: Secretions suctioned, noted with thick copious. Repositioned.
--- NOTE | 2018-12-10 03:00 | NUR ---
NURSE NOTES: Bed bath, oral care, change of linens done.
--- NOTE | 2018-12-10 05:00 | NUR ---
NURSE NOTES: Patient asleep. Tolerating feeding
--- NOTE | 2018-12-10 05:08 | NUR ---
RESPIRATORY NOTE: PT. REMAINED STABLE ON CMV WITH CURRENT SETTINGS. SX PRN WITHOUT ADVERSE REACTION. VENT. CIRCUIT AND SX TUBING SECURE AND OUT OF THE WAY. NO S/S OF RESPIRATORY DISTRESS NOTED AT THIS TIME.
--- NOTE | 2018-12-10 05:30 | NUR ---
NURSE NOTES: Feeding withheld for synthroid due at 0630H
[2018-12-10 05:36] LABS: BASOPHILS % (AUTO) 0.7 % (0.0-2.0); EOSINOPHILS % (AUTO) 3.9 % (0.0-3.0); HEMATOCRIT 27.5 % (42.0-52.0); HEMOGLOBIN 8.7 G/DL (14.2-18.0); LYMPHOCYTES % (AUTO) 16.7 % (20.0-45.0); MEAN CORPUSCULAR VOLUME 81 FL (80-99); MONOCYTES % (AUTO) 4.5 % (1.0-10.0); NEUTROPHILS % (AUTO) 74.3 % (45.0-75.0); PLATELET COUNT 401 K/UL (150-450); RED BLOOD COUNT 3.39 M/UL (4.70-6.10); RED CELL DISTRIBUTION WIDTH 17.6 % (11.6-14.8); WHITE BLOOD COUNT 12.7 K/UL (4.8-10.8)
[2018-12-10] MEDS: Levothyroxine 25mcg tab ORAL SCH (05:52)
[2018-12-10] MEDS: Meropenem 1 GM in NS 55 ML IVPB SCH (05:57)
[2018-12-10 06:01] LABS: ALANINE AMINOTRANSFERASE 22 U/L (12-78); ALBUMIN 1.5 G/DL (3.4-5.0); ALBUMIN/GLOBULIN RATIO 0.2 (1.0-2.7); ALKALINE PHOSPHATASE 88 U/L (46-116); ANION GAP 6 mmol/L (5-15); ASPARTATE AMINO TRANSFERASE 24 U/L (15-37); BILIRUBIN,TOTAL 0.5 MG/DL (0.2-1.0); BLOOD UREA NITROGEN 19 mg/dL (7-18); CALCIUM 9.1 MG/DL (8.5-10.1); CARBON DIOXIDE 32 MMOL/L (21-32); CHLORIDE 105 MMOL/L (98-107); PHOSPHORUS 3.8 MG/DL (2.5-4.9); SODIUM 142 MMOL/L (136-145)
--- NOTE | 2018-12-10 06:11 | NUR ---
COMMERCIAL PROPERTY ADMINISTRATORMANAGER OF SUPPLY CHAIN SI: RESP FAILURE ETT/VENT SUPPORT,LEUKOCYTOSIS T. 99.1 HT 106 RR 17 B/P 144/67 AC 16 TV 600 FIO2 30% WBC 12.7 BUN 19 IS: MEROPENEM IV VANCO IV PROTONIX IV LASIX IV ICU STATUS
--- NOTE | 2018-12-10 07:00 | NUR ---
Received Patient on Vent ACVC VT 600, RR 16, FIO2 30%, PEEP +5. Patient is intubated with 8.0 tube at 23 cm lip line, secured with anchor fast. Breath sounds reveal bilateral rhonchi. Suction thin white secretions. Vent plugged into red outlet. Alarms are on and audible. Will continue to monitor throughout the day. Addendum: 12/10/18 at 0747 by NATALIE SERRANO RT PEEP +0
--- NOTE | 2018-12-10 07:34 | NUR ---
HAND-OFF: Report given to DARIANA Laguna.
--- NOTE | 2018-12-10 07:35 | NUR ---
NURSE NOTES: Patient received lying in bed, asleep, spontaneously opens eyes, easily arousable, can follow simple commands. No non-verbal signs of pain noted. Orally intubated, ET size 8, lip line at 23, left side, with vent settings: AC-16, TV-600, Fio2-30%, No PEEP, oxygen saturation of 99%, no acute distress. HOB elevated for aspiration precaution. On g-tube feeding, restarted, Jevity 1.2 at 60 ml/hr, no residual noted, tolerating feeding. Right Arm, precaution, chronic DVT. Right foot IV 22g, asymptomatic, TKO fluid running. Left hand IV 24g, flushed, patent, saline lock. Bilateral soft wrist restraints in place, pulses palpable, skin intact. Andrade catheter in place, draining to yellow urine. Sinus Rhythm on the monitor. Pending CXR and ABG this morning. Safety measures implemented. Will continue to monitor. Plan for possible extubation today if stable.
--- NOTE | 2018-12-10 08:01 | NUR ---
Weaning started. Placed on PS +8, Fio2 30%, PEEP +0. Will continue to monitor.
--- NOTE | 2018-12-10 08:10 | NUR ---
NURSE NOTES: Weaning initiated by RT, on Pressure support of 8, Fio2 30%, 0 PEEP, will monitor patient. Oxygen saturation at 99%.
--- NOTE | 2018-12-10 09:10 | NUR ---
NURSE NOTES: Dr. Bhatti in facility, made aware of patient runs temperature 99s Fahrenheit, no fever, no orders at this time.
[2018-12-10] MEDS: Lisinopril 10mg tab GT SCH ×2 (09:48→17:12)
[2018-12-10] MEDS: Pantoprazole Inj IVP SCH (09:48)
[2018-12-10] MEDS: Vancomycin 1.5 GM/D5W 250ML IVPB SCH (09:49)
[2018-12-10] MEDS: Heparin 5000 units/ml inj SUBQ SCH ×2 (09:56→20:57)
--- NOTE | 2018-12-10 09:56 | NUR ---
RADIOLOGY DEPT' CHEST X-RAY DONE.-P.DYE
--- NOTE | 2018-12-10 10:05 | NUR ---
NURSE NOTES: Dr. Fritz in facility, aware of CXR results, no extubation to be done today, extensive infiltrate noted on CXR. Will continue to monitor patient.Otherwise remains on CPAP for weaning determination, no acute respiratory distress. Antibiotic therapy to be continued.
--- NOTE | 2018-12-10 10:05 | Pulmonolgy Critical Care Note ---
Critical Care - Asmt/Plan Problems: (1) Acute respiratory failure (2) Septic shock (3) Hypothyroidism (4) History of hypertension (5) Feeding by G-tube Respiratory: monitor respiratory rate, adjust FIO2, CXR Cardiac: continue to monitor HR/BP Renal: F/U I&O, keep IV fluid Infectious Disease: check cultures Gastrointestinal: continue feedings/current rate, hold feedings Endocrine: check TSH, continue sliding scale insulin Hematologic: monitor H/H, transfuse if hgb<8.5 Neurologic: PRN Ativan, keep patient comfortable Affect: PRN ativan Prophylaxis: Protonix, Heparin Notes Reviewed: grassroots organizer Discussed with: nurses, consultants, director of casework servicesgeophysical manager - Objective Last 24 Hour Vital Signs Date Time Temp Pulse Resp B/P (MAP) Pulse Ox O2 Delivery O2 Flow Rate FiO2 12/10/18 09:48 140/84 12/10/18 09:27 89 20 30 12/10/18 09:02 100 12/10/18 08:03 87 19 30 12/10/18 06:59 91 17 30 12/10/18 06:00 87 16 113/65 (81) 100 12/10/18 05:08 92 16 30 12/10/18 05:00 86 16 113/65 (81) 99 12/10/18 04:00 99.0 91 16 123/60 (81) 99 12/10/18 04:00 30 12/10/18 04:00 89 12/10/18 04:00 Mechanical Ventilator 12/10/18 03:08 106 22 30 12/10/18 03:00 95 17 138/88 (105) 99 12/10/18 02:00 98 17 144/67 (92) 99 12/10/18 01:11 97 16 30 12/10/18 01:00 98 17 136/67 (90) 99 12/10/18 00:00 99.0 98 17 139/97 (111) 99 12/10/18 00:00 99 12/10/18 00:00 Mechanical Ventilator 12/10/18 00:00 30 12/09/18 23:00 98 17 149/89 (109) 99 12/09/18 22:59 97 19 30 12/09/18 22:00 101 16 141/77 (98) 98 12/09/18 21:38 101 15 30 12/09/18 21:00 101 16 141/77 (98) 98 12/09/18 20:00 30 12/09/18 20:00 99.1 103 16 140/96 (111) 98 12/09/18 20:00 Mechanical Ventilator 12/09/18 20:00 106 12/09/18 19:24 102 15 30 12/09/18 19:00 101 17 117/66 (83) 99 12/09/18 18:00 101 16 106/81 (89) 98 12/09/18 17:51 126/49 12/09/18 17:05 103 16 30 12/09/18 17:00 104 18 126/49 (74) 98 12/09/18 16:00 Mechanical Ventilator 12/09/18 16:00 30 12/09/18 16:00 101 12/09/18 16:00 105 18 126/54 (78) 98 12/09/18 15:12 104 24 30 12/09/18 15:00 106 18 133/68 (89) 98 12/09/18 14:00 97 18 134/62 (86) 98 12/09/18 14:00 136/79 12/09/18 12:44 102 24 30 12/09/18 12:00 98.9 106 18 136/79 (98) 99 12/09/18 12:00 Mechanical Ventilator 12/09/18 12:00 109 12/09/18 12:00 30 12/09/18 11:28 104 29 30 12/09/18 11:00 103 18 135/81 (99) 99 Status: awake Condition: critical Neck: full ROM Heart: HR/BP stable, HR/BP unstable Abdomen: non-tender, feeding tube Extremities: no C/C/E Decubiti: location Accucheck: 101 Critical Care - Subjective ROS Limited/Unobtainable: Yes EKG Rhythm: Sinus Rhythm FI02: 30 Vent Support Breath Rate: 16 Vent Support Mode: CPAP Vent Tidal Volume: 600 Sputum Amount: Moderate PEEP: 0.0 PIP: 11 Tube Feeding Amount: 60 I&O: Intake and Output 12/09/18 12/10/18 19:00 07:00 Intake Total 1090 ml 820 ml Output Total 1000 ml 600 ml Balance 90 ml 220 ml Free Water 120 ml 100 ml IV Total 250 ml Tube Feeding 720 ml 660 ml Other 60 ml Output Urine Total 1000 ml 600 ml CXR: extensive infiltrate ET-Tube: 8.0 ET Position: 23 Labs: Laboratory Tests Test 12/10/18 04:45 12/10/18 09:28 White Blood Count 12.7 K/UL (4.8-10.8) H Red Blood Count 3.39 M/UL (4.70-6.10) L Hemoglobin 8.7 G/DL (14.2-18.0) L Hematocrit 27.5 % (42.0-52.0) L Mean Corpuscular Volume 81 FL (80-99) Mean Corpuscular Hemoglobin 25.8 PG (27.0-31.0) L Mean Corpuscular Hemoglobin Concent 31.8 G/DL (32.0-36.0) L Red Cell Distribution Width 17.6 % (11.6-14.8) H Platelet Count 401 K/UL (150-450) Mean Platelet Volume 6.2 FL (6.5-10.1) L Neutrophils (%) (Auto) 74.3 % (45.0-75.0) Lymphocytes (%) (Auto) 16.7 % (20.0-45.0) L Monocytes (%) (Auto) 4.5 % (1.0-10.0) Eosinophils (%) (Auto) 3.9 % (0.0-3.0) H Basophils (%) (Auto) 0.7 % (0.0-2.0) Sodium Level 142 MMOL/L (136-145) Potassium Level 4.0 MMOL/L (3.5-5.1) Chloride Level 105 MMOL/L (98-107) Carbon Dioxide Level 32 MMOL/L (21-32) Anion Gap 6 mmol/L (5-15) Blood Urea Nitrogen 19 mg/dL (7-18) H Creatinine 1.0 MG/DL (0.55-1.30) Estimat Glomerular Filtration Rate mL/min (>60) Glucose Level 121 MG/DL (74-106) H Calcium Level 9.1 MG/DL (8.5-10.1) Phosphorus Level 3.8 MG/DL (2.5-4.9) Magnesium Level 1.7 MG/DL (1.8-2.4) L Total Bilirubin 0.5 MG/DL (0.2-1.0) Aspartate Amino Transf (AST/SGOT) 24 U/L (15-37) Alanine Aminotransferase (ALT/SGPT) 22 U/L (12-78) Alkaline Phosphatase 88 U/L (46-116) Total Protein 7.5 G/DL (6.4-8.2) Albumin 1.5 G/DL (3.4-5.0) L Globulin 6.0 g/dL Albumin/Globulin Ratio 0.2 (1.0-2.7) L Arterial Blood pH 7.474 (7.350-7.450) Arterial Blood Partial Pressure CO2 45.5 mmHg (35.0-45.0) H Arterial Blood Partial Pressure O2 90.6 mmHg (75.0-100.0) Arterial Blood HCO3 32.7 mmol/L (22.0-26.0) H Arterial Blood Oxygen Saturation 96.2 % (95-100) Arterial Blood Base Excess 8.2 (-2-2) H Aroldo Test Positive Isaiah Fritz MD Dec 10, 2018 10:05
--- NOTE | 2018-12-10 10:08 | Infectious Diseases Prog Note ---
Assessment/Plan Assessment/Plan Assessment: Severe Sepsis- likely 2ry to PNA, r/o bacteremia, UTI. Possible Flu despite neg screen test -CXR: Bilateral diffuse interstitial and airspace infiltrates versus edema, worsening on the right over one day -Bcx NTD -u/a wbc 40-60, nit neg, leuk large; ucx 10-20 k P. mirablis ESBL (S Meropenem, Zosyn) -sp cx p -influenza sc, legionela ag urine neg Fever, improving Leukocytosis, improving Acute respiratory failure s/p intubation 12/04 ELICIA, improving COPD DM2 HTN dysphagia s/p G-tube dementia SNF resident Plan: - Start Tigecycline for Acinetobacter -12/10/18 IV Vancomycin #7 and Meropenem #6 for PNA and UTI -12/10 SP Tamiflu #6 -12/05 AMikacin and Ertapenem #2 -12/07/18 SP empiric Azithromycin #3 -f/u cx -Monitor CBC/CMP, temperatures -ICU, ETT care -aspiration precautions Thank you for this consultation. Will continue to follow along with you. Subjective Allergies: Coded Allergies: No Known Allergies (Unverified , 12/04/18) Subjective Still on Vent 30% O2 Afebrile Leukocytosis resolving Objective Vital Signs Last 24 Hour Vital Signs Date Time Temp Pulse Resp B/P (MAP) Pulse Ox O2 Delivery O2 Flow Rate FiO2 12/10/18 09:48 140/84 12/10/18 09:27 89 20 30 12/10/18 09:02 100 12/10/18 08:03 87 19 30 12/10/18 06:59 91 17 30 12/10/18 06:00 87 16 113/65 (81) 100 12/10/18 05:08 92 16 30 12/10/18 05:00 86 16 113/65 (81) 99 12/10/18 04:00 99.0 91 16 123/60 (81) 99 12/10/18 04:00 30 12/10/18 04:00 89 12/10/18 04:00 Mechanical Ventilator 12/10/18 03:08 106 22 30 12/10/18 03:00 95 17 138/88 (105) 99 12/10/18 02:00 98 17 144/67 (92) 99 12/10/18 01:11 97 16 30 12/10/18 01:00 98 17 136/67 (90) 99 12/10/18 00:00 99.0 98 17 139/97 (111) 99 12/10/18 00:00 99 12/10/18 00:00 Mechanical Ventilator 12/10/18 00:00 30 12/09/18 23:00 98 17 149/89 (109) 99 12/09/18 22:59 97 19 30 12/09/18 22:00 101 16 141/77 (98) 98 12/09/18 21:38 101 15 30 12/09/18 21:00 101 16 141/77 (98) 98 12/09/18 20:00 30 12/09/18 20:00 99.1 103 16 140/96 (111) 98 12/09/18 20:00 Mechanical Ventilator 12/09/18 20:00 106 12/09/18 19:24 102 15 30 12/09/18 19:00 101 17 117/66 (83) 99 12/09/18 18:00 101 16 106/81 (89) 98 12/09/18 17:51 126/49 12/09/18 17:05 103 16 30 12/09/18 17:00 104 18 126/49 (74) 98 12/09/18 16:00 Mechanical Ventilator 12/09/18 16:00 30 12/09/18 16:00 101 12/09/18 16:00 105 18 126/54 (78) 98 12/09/18 15:12 104 24 30 12/09/18 15:00 106 18 133/68 (89) 98 12/09/18 14:00 97 18 134/62 (86) 98 12/09/18 14:00 136/79 12/09/18 12:44 102 24 30 12/09/18 12:00 98.9 106 18 136/79 (98) 99 12/09/18 12:00 Mechanical Ventilator 12/09/18 12:00 109 12/09/18 12:00 30 12/09/18 11:28 104 29 30 12/09/18 11:00 103 18 135/81 (99) 99 Height (Feet): 5 Height (Inches): 7.00 Weight (Pounds): 163 Objective Gen: NAD HEENT: NCAT, intubated Lungs: clear Heart: HR/BP stable Abdomen: soft, active bowel sounds Extremities: no C/C/E Laboratory Tests Test 12/10/18 04:45 12/10/18 09:28 White Blood Count 12.7 K/UL (4.8-10.8) H Red Blood Count 3.39 M/UL (4.70-6.10) L Hemoglobin 8.7 G/DL (14.2-18.0) L Hematocrit 27.5 % (42.0-52.0) L Mean Corpuscular Volume 81 FL (80-99) Mean Corpuscular Hemoglobin 25.8 PG (27.0-31.0) L Mean Corpuscular Hemoglobin Concent 31.8 G/DL (32.0-36.0) L Red Cell Distribution Width 17.6 % (11.6-14.8) H Platelet Count 401 K/UL (150-450) Mean Platelet Volume 6.2 FL (6.5-10.1) L Neutrophils (%) (Auto) 74.3 % (45.0-75.0) Lymphocytes (%) (Auto) 16.7 % (20.0-45.0) L Monocytes (%) (Auto) 4.5 % (1.0-10.0) Eosinophils (%) (Auto) 3.9 % (0.0-3.0) H Basophils (%) (Auto) 0.7 % (0.0-2.0) Sodium Level 142 MMOL/L (136-145) Potassium Level 4.0 MMOL/L (3.5-5.1) Chloride Level 105 MMOL/L (98-107) Carbon Dioxide Level 32 MMOL/L (21-32) Anion Gap 6 mmol/L (5-15) Blood Urea Nitrogen 19 mg/dL (7-18) H Creatinine 1.0 MG/DL (0.55-1.30) Estimat Glomerular Filtration Rate mL/min (>60) Glucose Level 121 MG/DL (74-106) H Calcium Level 9.1 MG/DL (8.5-10.1) Phosphorus Level 3.8 MG/DL (2.5-4.9) Magnesium Level 1.7 MG/DL (1.8-2.4) L Total Bilirubin 0.5 MG/DL (0.2-1.0) Aspartate Amino Transf (AST/SGOT) 24 U/L (15-37) Alanine Aminotransferase (ALT/SGPT) 22 U/L (12-78) Alkaline Phosphatase 88 U/L (46-116) Total Protein 7.5 G/DL (6.4-8.2) Albumin 1.5 G/DL (3.4-5.0) L Globulin 6.0 g/dL Albumin/Globulin Ratio 0.2 (1.0-2.7) L Arterial Blood pH 7.474 (7.350-7.450) Arterial Blood Partial Pressure CO2 45.5 mmHg (35.0-45.0) H Arterial Blood Partial Pressure O2 90.6 mmHg (75.0-100.0) Arterial Blood HCO3 32.7 mmol/L (22.0-26.0) H Arterial Blood Oxygen Saturation 96.2 % (95-100) Arterial Blood Base Excess 8.2 (-2-2) H Aroldo Test Positive Current Medications Medications (Trade) Dose Ordered Sig/Courtney Route PRN Reason Start Time Stop Time Status Last Admin Dose Admin Acetaminophen (Tylenol) 650 mg Q4H PRN ORAL fever 12/04/18 14:00 01/03/19 13:59 12/07/18 19:26 Furosemide (Lasix) 40 mg DAILY IV 12/06/18 18:00 01/05/19 17:59 12/10/18 09:48 Heparin Sodium (Porcine) (Heparin 5000 units/ml) 5,000 units EVERY 12 HOURS SUBQ 12/04/18 21:00 01/03/19 20:59 12/10/18 09:56 Levothyroxine Sodium (Synthroid) 25 mcg DAILY@0630 ORAL 12/09/18 06:30 01/08/19 06:29 12/10/18 05:52 Lisinopril (Zestril) 20 mg BID GT 12/08/18 18:00 01/07/19 08:59 12/10/18 09:48 Lorazepam (Ativan 2mg/ml 1ml) 2 mg Q2H PRN IV For Anxiety 12/04/18 14:00 12/11/18 13:59 12/09/18 15:42 Meropenem 1 gm/ Sodium Chloride 55 ml @ 110 mls/hr Q8HR IVPB 12/06/18 14:00 12/15/18 13:59 12/10/18 05:57 Morphine Sulfate (Morphine Sulfate) 4 mg Q4H PRN IVP Severe Pain (Pain Scale 7-10) 12/04/18 14:00 12/11/18 13:59 12/08/18 08:58 Norepinephrine Bitartrate 4 mg/ Dextrose 254 ml @ 0 mls/hr Q24H IV 12/04/18 14:00 01/03/19 13:59 Pantoprazole (Protonix) 40 mg DAILY IVP 12/05/18 09:00 01/04/19 08:59 12/10/18 09:48 Vancomycin HCl (Vanco rx to dose) 1 ea DAILY PRN MISC PER PHARM 12/04/18 15:15 01/03/19 15:14 Vancomycin HCl/ Dextrose 250 ml @ 125 mls/hr Q24H IVPB 12/06/18 09:00 12/15/18 08:59 12/10/18 09:49 Rayo Bhatti MD Dec 10, 2018 10:08
--- NOTE | 2018-12-10 10:36 | NUR ---
Weaning stopped per Drs orders. Placed back on previous settings.
--- NOTE | 2018-12-10 10:49 | Diagnostic Imaging Report ---
Indication: Dyspnea Technique: One view of the chest Comparison: 12/09/2018 Findings: Stable satisfactory position of endotracheal tube. Less optimal inspiration currently. Bilateral interstitial and airspace disease is again demonstrated diffusely bilaterally, with a lower lobe predominance. This is unchanged on the right, perhaps slightly improved on the left Impression: Extensive and diffuse bilateral interstitial and airspace disease, perhaps slightly improved on the left
[2018-12-10] MEDS ORDERED: Tigecycline 100 MG in NS 110 ML IVPB ONE (11:00)
--- NOTE | 2018-12-10 12:00 | NUR ---
NURSE NOTES: Patient requested to talk, education provided on intubation, means for communication is writing on paper for now. Patient understands with a nod. Place back on right wrist restraint. Endotracheal suctioning provided, moderate thick white sputum noted. Patient with good gag reflex. No complains of pain.
--- NOTE | 2018-12-10 12:40 | Cardiac Electrophysiology PN ---
Assessment/Plan Assessment/Plan 1. Respiratory failure with elevated BNP. His echocardiogram showed ejection fraction of 55% to 60% with diastolic dysfunction. Continue Lasix 40 mg IV daily. 2. Pneumonia, respiratory failure on the ventilator as well as on broad- spectrum IV antibiotic per Infectious Diseases and Dr. Fritz. Still being weaned 3. Hypertension. On Lasix 40 mg IV daily and lisinopril 20 mg b.i.d. 4. Severe sepsis, likely due to pneumonia and bacteremia. 5. Diabetes 6. Dysphagia, status post PEG placement. Subjective Subjective In SR. In ICU on the vent in NAD. Alert in NAD. Can write. Objective Last 24 Hour Vital Signs Date Time Temp Pulse Resp B/P (MAP) Pulse Ox O2 Delivery O2 Flow Rate FiO2 12/10/18 10:41 30 12/10/18 10:35 99 22 30 12/10/18 09:48 140/84 12/10/18 09:27 89 20 30 12/10/18 09:02 100 12/10/18 09:00 90 22 142/71 (94) 100 12/10/18 08:10 30 12/10/18 08:03 87 19 30 12/10/18 08:00 88 22 140/84 (102) 100 12/10/18 08:00 30 12/10/18 08:00 Mechanical Ventilator 12/10/18 08:00 80 12/10/18 07:00 99.6 84 16 144/76 (98) 100 12/10/18 06:59 91 17 30 12/10/18 06:00 87 16 113/65 (81) 100 12/10/18 05:08 92 16 30 12/10/18 05:00 86 16 113/65 (81) 99 12/10/18 04:00 99.0 91 16 123/60 (81) 99 12/10/18 04:00 30 12/10/18 04:00 89 12/10/18 04:00 Mechanical Ventilator 12/10/18 03:08 106 22 30 12/10/18 03:00 95 17 138/88 (105) 99 12/10/18 02:00 98 17 144/67 (92) 99 12/10/18 01:11 97 16 30 12/10/18 01:00 98 17 136/67 (90) 99 12/10/18 00:00 99.0 98 17 139/97 (111) 99 12/10/18 00:00 99 12/10/18 00:00 Mechanical Ventilator 12/10/18 00:00 30 12/09/18 23:00 98 17 149/89 (109) 99 12/09/18 22:59 97 19 30 12/09/18 22:00 101 16 141/77 (98) 98 12/09/18 21:38 101 15 30 12/09/18 21:00 101 16 141/77 (98) 98 12/09/18 20:00 30 12/09/18 20:00 99.1 103 16 140/96 (111) 98 12/09/18 20:00 Mechanical Ventilator 12/09/18 20:00 106 12/09/18 19:24 102 15 30 12/09/18 19:00 101 17 117/66 (83) 99 12/09/18 18:00 101 16 106/81 (89) 98 12/09/18 17:51 126/49 12/09/18 17:05 103 16 30 12/09/18 17:00 104 18 126/49 (74) 98 12/09/18 16:00 Mechanical Ventilator 12/09/18 16:00 30 12/09/18 16:00 101 12/09/18 16:00 105 18 126/54 (78) 98 12/09/18 15:12 104 24 30 12/09/18 15:00 106 18 133/68 (89) 98 12/09/18 14:00 97 18 134/62 (86) 98 12/09/18 14:00 136/79 12/09/18 12:44 102 24 30 Intake and Output 12/09/18 12/10/18 19:00 07:00 Intake Total 1090 ml 820 ml Output Total 1000 ml 600 ml Balance 90 ml 220 ml Free Water 120 ml 100 ml IV Total 250 ml Tube Feeding 720 ml 660 ml Other 60 ml Output Urine Total 1000 ml 600 ml Laboratory Tests Test 12/10/18 04:45 12/10/18 09:28 White Blood Count 12.7 K/UL (4.8-10.8) H Red Blood Count 3.39 M/UL (4.70-6.10) L Hemoglobin 8.7 G/DL (14.2-18.0) L Hematocrit 27.5 % (42.0-52.0) L Mean Corpuscular Volume 81 FL (80-99) Mean Corpuscular Hemoglobin 25.8 PG (27.0-31.0) L Mean Corpuscular Hemoglobin Concent 31.8 G/DL (32.0-36.0) L Red Cell Distribution Width 17.6 % (11.6-14.8) H Platelet Count 401 K/UL (150-450) Mean Platelet Volume 6.2 FL (6.5-10.1) L Neutrophils (%) (Auto) 74.3 % (45.0-75.0) Lymphocytes (%) (Auto) 16.7 % (20.0-45.0) L Monocytes (%) (Auto) 4.5 % (1.0-10.0) Eosinophils (%) (Auto) 3.9 % (0.0-3.0) H Basophils (%) (Auto) 0.7 % (0.0-2.0) Sodium Level 142 MMOL/L (136-145) Potassium Level 4.0 MMOL/L (3.5-5.1) Chloride Level 105 MMOL/L (98-107) Carbon Dioxide Level 32 MMOL/L (21-32) Anion Gap 6 mmol/L (5-15) Blood Urea Nitrogen 19 mg/dL (7-18) H Creatinine 1.0 MG/DL (0.55-1.30) Estimat Glomerular Filtration Rate mL/min (>60) Glucose Level 121 MG/DL (74-106) H Calcium Level 9.1 MG/DL (8.5-10.1) Phosphorus Level 3.8 MG/DL (2.5-4.9) Magnesium Level 1.7 MG/DL (1.8-2.4) L Total Bilirubin 0.5 MG/DL (0.2-1.0) Aspartate Amino Transf (AST/SGOT) 24 U/L (15-37) Alanine Aminotransferase (ALT/SGPT) 22 U/L (12-78) Alkaline Phosphatase 88 U/L (46-116) Total Protein 7.5 G/DL (6.4-8.2) Albumin 1.5 G/DL (3.4-5.0) L Globulin 6.0 g/dL Albumin/Globulin Ratio 0.2 (1.0-2.7) L Arterial Blood pH 7.474 (7.350-7.450) Arterial Blood Partial Pressure CO2 45.5 mmHg (35.0-45.0) H Arterial Blood Partial Pressure O2 90.6 mmHg (75.0-100.0) Arterial Blood HCO3 32.7 mmol/L (22.0-26.0) H Arterial Blood Oxygen Saturation 96.2 % (95-100) Arterial Blood Base Excess 8.2 (-2-2) H Aroldo Test Positive Objective HEAD AND NECK: Orally intubated. LUNGS: Coarse rhonchi. CARDIOVASCULAR: Regular S1 and S2 and mildly tachycardic. ABDOMEN: Status post G-tube. EXTREMITIES: No pitting edema. Darrell Cevallos MD Dec 10, 2018 12:40
--- NOTE | 2018-12-10 14:00 | NUR ---
NURSE NOTES: Patient calm and comfortable, no acute distress. No complains of pain. Heels offloaded. Will continue to monitor.
--- NOTE | 2018-12-10 17:59 | Internal Med Progress Note ---
Subjective Date of Service: Dec 10, 2018 Physician Name Roni Carson Attending Physician Isaiah Fritz MD Current Medications Medications (Trade) Dose Ordered Sig/Courtney Route PRN Reason Start Time Stop Time Status Last Admin Dose Admin Acetaminophen (Tylenol) 650 mg Q4H PRN ORAL fever 12/04/18 14:00 01/03/19 13:59 12/07/18 19:26 Furosemide (Lasix) 40 mg DAILY IV 12/06/18 18:00 01/05/19 17:59 12/10/18 09:48 Heparin Sodium (Porcine) (Heparin 5000 units/ml) 5,000 units EVERY 12 HOURS SUBQ 12/04/18 21:00 01/03/19 20:59 12/10/18 09:56 Levothyroxine Sodium (Synthroid) 25 mcg DAILY@0630 ORAL 12/09/18 06:30 01/08/19 06:29 12/10/18 05:52 Lisinopril (Zestril) 20 mg BID GT 12/08/18 18:00 01/07/19 08:59 12/10/18 17:12 Lorazepam (Ativan 2mg/ml 1ml) 2 mg Q2H PRN IV For Anxiety 12/04/18 14:00 12/11/18 13:59 12/09/18 15:42 Morphine Sulfate (Morphine Sulfate) 4 mg Q4H PRN IVP Severe Pain (Pain Scale 7-10) 12/04/18 14:00 12/11/18 13:59 12/08/18 08:58 Norepinephrine Bitartrate 4 mg/ Dextrose 254 ml @ 0 mls/hr Q24H IV 12/04/18 14:00 01/03/19 13:59 Pantoprazole (Protonix) 40 mg DAILY IVP 12/05/18 09:00 01/04/19 08:59 12/10/18 09:48 Tigecycline 50 mg/ Sodium Chloride 110 ml @ 220 mls/hr EVERY 12 HOURS IVPB 12/10/18 21:00 12/17/18 20:59 Allergies: Coded Allergies: No Known Allergies (Unverified , 12/04/18) ROS Limited/Unobtainable: Yes Subjective 73 YO M admitted with respiratory failure. Now pneumonia. Intubated and sedated. ICU. Cover for Int Garret-Dr Matthews Objective Last Vital Signs Date Time Temp Pulse Resp B/P (MAP) Pulse Ox O2 Delivery O2 Flow Rate FiO2 12/10/18 17:23 97 20 30 12/10/18 17:12 134/67 12/10/18 16:00 Mechanical Ventilator 12/10/18 14:00 99 12/10/18 12:00 99.0 12/04/18 16:00 4.0 Laboratory Tests Test 12/10/18 04:45 12/10/18 09:28 White Blood Count 12.7 K/UL (4.8-10.8) H Red Blood Count 3.39 M/UL (4.70-6.10) L Hemoglobin 8.7 G/DL (14.2-18.0) L Hematocrit 27.5 % (42.0-52.0) L Mean Corpuscular Volume 81 FL (80-99) Mean Corpuscular Hemoglobin 25.8 PG (27.0-31.0) L Mean Corpuscular Hemoglobin Concent 31.8 G/DL (32.0-36.0) L Red Cell Distribution Width 17.6 % (11.6-14.8) H Platelet Count 401 K/UL (150-450) Mean Platelet Volume 6.2 FL (6.5-10.1) L Neutrophils (%) (Auto) 74.3 % (45.0-75.0) Lymphocytes (%) (Auto) 16.7 % (20.0-45.0) L Monocytes (%) (Auto) 4.5 % (1.0-10.0) Eosinophils (%) (Auto) 3.9 % (0.0-3.0) H Basophils (%) (Auto) 0.7 % (0.0-2.0) Sodium Level 142 MMOL/L (136-145) Potassium Level 4.0 MMOL/L (3.5-5.1) Chloride Level 105 MMOL/L (98-107) Carbon Dioxide Level 32 MMOL/L (21-32) Anion Gap 6 mmol/L (5-15) Blood Urea Nitrogen 19 mg/dL (7-18) H Creatinine 1.0 MG/DL (0.55-1.30) Estimat Glomerular Filtration Rate mL/min (>60) Glucose Level 121 MG/DL (74-106) H Calcium Level 9.1 MG/DL (8.5-10.1) Phosphorus Level 3.8 MG/DL (2.5-4.9) Magnesium Level 1.7 MG/DL (1.8-2.4) L Total Bilirubin 0.5 MG/DL (0.2-1.0) Aspartate Amino Transf (AST/SGOT) 24 U/L (15-37) Alanine Aminotransferase (ALT/SGPT) 22 U/L (12-78) Alkaline Phosphatase 88 U/L (46-116) Total Protein 7.5 G/DL (6.4-8.2) Albumin 1.5 G/DL (3.4-5.0) L Globulin 6.0 g/dL Albumin/Globulin Ratio 0.2 (1.0-2.7) L Arterial Blood pH 7.474 (7.350-7.450) Arterial Blood Partial Pressure CO2 45.5 mmHg (35.0-45.0) H Arterial Blood Partial Pressure O2 90.6 mmHg (75.0-100.0) Arterial Blood HCO3 32.7 mmol/L (22.0-26.0) H Arterial Blood Oxygen Saturation 96.2 % (95-100) Arterial Blood Base Excess 8.2 (-2-2) H Aroldo Test Positive Intake and Output 12/09/18 12/10/18 18:59 06:59 Intake Total 1090 ml 820 ml Output Total 1050 ml 600 ml Balance 40 ml 220 ml Free Water 120 ml 100 ml IV Total 250 ml Tube Feeding 720 ml 660 ml Other 60 ml Output Urine Total 1050 ml 600 ml Objective General Appearance: WD/WN, no apparent distress, lethargic EENT: PERRL/EOMI, normal ENT inspection Neck: non-tender, normal alignment, supple, normal inspection Cardiovascular: normal peripheral pulses, normal rate, regular rhythm, no gallop/murmur, no JVD Respiratory/Chest: Mech vent; chest wall non-tender, respiratory distress, crackles/rales, rhonchi - bilaterally, expiratory wheezing Abdomen: normal bowel sounds, non tender, soft, no organomegaly, no mass Extremities: normal range of motion, non-tender Skin: normal pigmentation, warm/dry Assessment/Plan Problem List: (1) Pneumonia Assessment & Plan: See ID note. Continue meropenem, vanco tamiflu and azithromycin. (2) Anemia Assessment & Plan: S/P tansfusion 2 units PRBC 12/05/18. (3) Elevated troponin Assessment & Plan: See cardiology consult. (4) COPD (chronic obstructive pulmonary disease) (5) HTN (hypertension) Assessment & Plan: Currently on levophed (6) CHF (congestive heart failure) Assessment & Plan: LVEF=55-60% (7) Diabetes mellitus, type II (8) Chronic renal failure Assessment & Plan: See nephrology note. (9) Dysphagia (10) CAD (coronary artery disease) (11) Acute respiratory failure Assessment & Plan: Weaning protocol; [facility] per pulm (12) Hypothyroidism Status: progressing Roni Carson MD Dec 10, 2018 17:59
--- NOTE | 2018-12-10 18:00 | NUR ---
NURSE NOTES: Patient noted with loose BM, perineal care provided, bed linens changed. Heels floated. HOB elevated for aspiration precaution.
--- NOTE | 2018-12-10 19:30 | NUR ---
NURSE NOTES:Received pt with eyes close, easily arousable to verbal stimuli orally intubated on ac mode , Bilateral soft wrist restraints on for safety to avoid self extubation. SR on the monitor, bp stable. afebrile. Tolerated Gt fdg jevity 1.2 at 60ml/hr residual check only 10ml. HOB kept elevated. On aspiration precaution. Rt foot and left hand iv site patent to flushes. Will continue to monitor.
[2018-12-10] MEDS: Tigecycline 50 MG in NS 110 ML IVPB SCH (20:56)
--- NOTE | 2018-12-10 21:00 | NUR ---
NURSE NOTES:Had watery brownish bowel movement (unable to collect specimen), partial bath given.
--- NOTE | 2018-12-10 23:00 | NUR ---
NURSE NOTES:Suctioned tn whitish to beige secretions moderate in amt. 02 sat 100% Watch for any resp. distress.
[2018-12-11] VITALS (24 sets, daily range): BP systolic 107–144; BP diastolic 50–97
--- NOTE | 2018-12-11 01:00 | NUR ---
NURSE NOTES:Resting well with vss. No resp. distress noted.
--- NOTE | 2018-12-11 03:00 | NUR ---
NURSE NOTES: Passive range of motion exercise done to both wrist and arms to promote good circulation.
--- NOTE | 2018-12-11 04:07 | NUR ---
NURSE NOTES:Complete bath with bed changed done.
[2018-12-11 05:50] LABS: BASOPHILS % (AUTO) 0.7 % (0.0-2.0); EOSINOPHILS % (AUTO) 3.2 % (0.0-3.0); HEMATOCRIT 27.9 % (42.0-52.0); HEMOGLOBIN 8.9 G/DL (14.2-18.0); LYMPHOCYTES % (AUTO) 20.5 % (20.0-45.0); MEAN CORPUSCULAR VOLUME 81 FL (80-99); MONOCYTES % (AUTO) 7.2 % (1.0-10.0); NEUTROPHILS % (AUTO) 68.4 % (45.0-75.0); PLATELET COUNT 437 K/UL (150-450); RED BLOOD COUNT 3.44 M/UL (4.70-6.10); RED CELL DISTRIBUTION WIDTH 17.8 % (11.6-14.8); WHITE BLOOD COUNT 12.3 K/UL (4.8-10.8)
[2018-12-11 06:05] LABS: ALANINE AMINOTRANSFERASE 21 U/L (12-78); ALBUMIN 1.5 G/DL (3.4-5.0); ALBUMIN/GLOBULIN RATIO 0.2 (1.0-2.7); ALKALINE PHOSPHATASE 91 U/L (46-116); ANION GAP 8 mmol/L (5-15); ASPARTATE AMINO TRANSFERASE 19 U/L (15-37); BILIRUBIN,TOTAL 0.5 MG/DL (0.2-1.0); BLOOD UREA NITROGEN 32 mg/dL (7-18); CALCIUM 8.7 MG/DL (8.5-10.1); CARBON DIOXIDE 30 MMOL/L (21-32); CHLORIDE 104 MMOL/L (98-107); POTASSIUM 3.3 MMOL/L (3.5-5.1); SODIUM 142 MMOL/L (136-145)
[2018-12-11] MEDS: Levothyroxine 25mcg tab ORAL SCH (06:56)
--- NOTE | 2018-12-11 07:21 | NUR ---
HAND-OFF: Report given to Brittany Jimenez
--- NOTE | 2018-12-11 08:00 | NUR ---
NURSE NOTES: Patient received lying in bed, asleep, spontaneously opens eyes. No non-verbal signs of pain noted, able to make needs known by pointing. Orally intubated, ET size 8, lip line at 23, left side, with vent settings: AC-16, TV-600, Fio2-30%, No PEEP, oxygen saturation of 99%, no acute distress. HOB elevated for aspiration precaution. On g-tube feeding, restarted, Jevity 1.2 at 60 ml/hr, no residual noted, tolerating feeding. Right Arm, precaution, chronic DVT. Right foot IV 22g, asymptomatic, TKO fluid running. Left hand IV 24g, flushed, patent, saline lock. Bilateral soft wrist restraints in place, pulses palpable, skin intact. Andrade catheter in place, draining to yellow urine. Safety measures implemented. Will continue to monitor. Plan for possible extubation today if stable.
[2018-12-11] MEDS: Tigecycline 50 MG in NS 110 ML IVPB SCH ×2 (08:16→20:56)
[2018-12-11] MEDS: Pantoprazole Inj IVP SCH (08:16)
[2018-12-11] MEDS: Lisinopril 10mg tab GT SCH ×2 (08:17→18:21)
[2018-12-11] MEDS: Morphine Sulfate 4mg/ml Inj (IV/IM USE ONLY) IVP PRN (08:17)
[2018-12-11] MEDS: Heparin 5000 units/ml inj SUBQ SCH ×2 (08:18→20:59)
--- NOTE | 2018-12-11 09:44 | Infectious Diseases Prog Note ---
Assessment/Plan Assessment/Plan Assessment: Severe Sepsis- likely 2ry to PNA, r/o bacteremia, UTI. Possible Flu despite neg screen test -CXR: Bilateral diffuse interstitial and airspace infiltrates versus edema, worsening on the right over one day -Bcx NTD -u/a wbc 40-60, nit neg, leuk large; ucx 10-20 k P. mirablis ESBL (S Meropenem, Zosyn) -sp cx p -influenza sc, legionela ag urine neg Fever, improving Leukocytosis, improving Acute respiratory failure s/p intubation 12/04 ELICIA, improving COPD DM2 HTN dysphagia s/p G-tube dementia SNF resident Plan: - Continue Tigecycline #2/7 for Acinetobacter -12/10/18 IV Vancomycin #7 and Meropenem #6 for PNA and UTI -12/10 SP Tamiflu #6 -12/05 AMikacin and Ertapenem #2 -12/07/18 SP empiric Azithromycin #3 -f/u cx -Monitor CBC/CMP, temperatures -ICU, ETT care -aspiration precautions Thank you for this consultation. Will continue to follow along with you. Subjective Allergies: Coded Allergies: No Known Allergies (Unverified , 12/04/18) Subjective Still on Vent 30% O2 Afebrile Leukocytosis improved Objective Vital Signs Last 24 Hour Vital Signs Date Time Temp Pulse Resp B/P (MAP) Pulse Ox O2 Delivery O2 Flow Rate FiO2 12/11/18 09:18 96 24 30 12/11/18 09:14 99 12/11/18 09:00 85 19 115/72 (86) 100 12/11/18 08:17 143/70 12/11/18 08:00 30 12/11/18 08:00 98.9 89 19 144/70 (94) 100 12/11/18 08:00 95 12/11/18 08:00 Mechanical Ventilator 12/11/18 07:04 96 18 30 12/11/18 07:00 90 19 125/74 (91) 100 12/11/18 06:00 95 19 123/70 (87) 100 12/11/18 05:21 95 19 30 12/11/18 05:00 96 19 133/70 (91) 100 12/11/18 04:00 30 12/11/18 04:00 92 12/11/18 04:00 Mechanical Ventilator 12/11/18 04:00 98.8 94 17 141/78 (99) 100 12/11/18 03:33 97 20 30 12/11/18 03:00 96 18 125/59 (81) 100 12/11/18 02:00 95 18 132/59 (83) 100 12/11/18 01:50 98 17 30 12/11/18 01:00 101 19 125/73 (90) 100 12/11/18 00:00 30 12/11/18 00:00 99.6 99 19 132/73 (92) 100 12/11/18 00:00 93 12/11/18 00:00 Mechanical Ventilator 12/11/18 00:00 99 12/10/18 23:18 99 16 30 12/10/18 23:00 98 19 133/68 (89) 100 12/10/18 22:00 102 19 125/68 (87) 100 12/10/18 21:29 105 20 30 12/10/18 21:00 105 19 130/68 (88) 100 12/10/18 20:00 99.8 105 18 137/68 (91) 100 12/10/18 20:00 Mechanical Ventilator 12/10/18 20:00 30 12/10/18 20:00 99 12/10/18 19:03 106 20 30 12/10/18 19:00 93 17 133/69 (90) 99 12/10/18 18:00 102 17 125/64 (84) 99 12/10/18 17:23 97 20 30 12/10/18 17:12 134/67 12/10/18 17:00 94 19 121/63 (82) 100 12/10/18 16:00 99.3 94 17 134/67 (89) 100 12/10/18 16:00 30 12/10/18 16:00 93 12/10/18 16:00 Mechanical Ventilator 12/10/18 15:29 94 19 30 12/10/18 15:00 94 17 120/63 (82) 100 12/10/18 14:00 92 18 124/68 (86) 99 12/10/18 13:15 107 23 30 12/10/18 13:00 98 18 136/63 (87) 100 12/10/18 12:00 Mechanical Ventilator 12/10/18 12:00 99.0 97 18 135/70 (91) 99 12/10/18 12:00 99 12/10/18 11:00 96 18 126/65 (85) 98 12/10/18 10:41 30 12/10/18 10:35 99 22 30 12/10/18 10:00 93 22 122/74 (90) 99 12/10/18 09:48 140/84 Height (Feet): 5 Height (Inches): 7.00 Weight (Pounds): 161 Objective Gen: NAD, Awake and following HEENT: NCAT, intubated Lungs: clear Heart: HR/BP stable Abdomen: soft, active bowel sounds Extremities: no C/C/E Laboratory Tests Test 12/11/18 04:00 12/11/18 05:10 Arterial Blood pH 7.539 (7.350-7.450) Arterial Blood Partial Pressure CO2 38.2 mmHg (35.0-45.0) Arterial Blood Partial Pressure O2 76.1 mmHg (75.0-100.0) Arterial Blood HCO3 31.9 mmol/L (22.0-26.0) H Arterial Blood Oxygen Saturation 94.5 % (95-100) L Arterial Blood Base Excess 8.7 (-2-2) H Aroldo Test Positive White Blood Count 12.3 K/UL (4.8-10.8) H Red Blood Count 3.44 M/UL (4.70-6.10) L Hemoglobin 8.9 G/DL (14.2-18.0) L Hematocrit 27.9 % (42.0-52.0) L Mean Corpuscular Volume 81 FL (80-99) Mean Corpuscular Hemoglobin 25.7 PG (27.0-31.0) L Mean Corpuscular Hemoglobin Concent 31.8 G/DL (32.0-36.0) L Red Cell Distribution Width 17.8 % (11.6-14.8) H Platelet Count 437 K/UL (150-450) Mean Platelet Volume 6.9 FL (6.5-10.1) Neutrophils (%) (Auto) 68.4 % (45.0-75.0) Lymphocytes (%) (Auto) 20.5 % (20.0-45.0) Monocytes (%) (Auto) 7.2 % (1.0-10.0) Eosinophils (%) (Auto) 3.2 % (0.0-3.0) H Basophils (%) (Auto) 0.7 % (0.0-2.0) Sodium Level 142 MMOL/L (136-145) Potassium Level 3.3 MMOL/L (3.5-5.1) L Chloride Level 104 MMOL/L (98-107) Carbon Dioxide Level 30 MMOL/L (21-32) Anion Gap 8 mmol/L (5-15) Blood Urea Nitrogen 32 mg/dL (7-18) H Creatinine 1.0 MG/DL (0.55-1.30) Estimat Glomerular Filtration Rate mL/min (>60) Glucose Level 99 MG/DL (74-106) Calcium Level 8.7 MG/DL (8.5-10.1) Phosphorus Level 4.0 MG/DL (2.5-4.9) Magnesium Level 1.7 MG/DL (1.8-2.4) L Total Bilirubin 0.5 MG/DL (0.2-1.0) Aspartate Amino Transf (AST/SGOT) 19 U/L (15-37) Alanine Aminotransferase (ALT/SGPT) 21 U/L (12-78) Alkaline Phosphatase 91 U/L (46-116) Total Protein 7.6 G/DL (6.4-8.2) Albumin 1.5 G/DL (3.4-5.0) L Globulin 6.1 g/dL Albumin/Globulin Ratio 0.2 (1.0-2.7) L Current Medications Medications (Trade) Dose Ordered Sig/Courtney Route PRN Reason Start Time Stop Time Status Last Admin Dose Admin Acetaminophen (Tylenol) 650 mg Q4H PRN ORAL fever 12/04/18 14:00 01/03/19 13:59 12/07/18 19:26 Furosemide (Lasix) 40 mg DAILY IV 12/06/18 18:00 01/05/19 17:59 12/11/18 08:16 Heparin Sodium (Porcine) (Heparin 5000 units/ml) 5,000 units EVERY 12 HOURS SUBQ 12/04/18 21:00 01/03/19 20:59 12/11/18 08:18 Levothyroxine Sodium (Synthroid) 25 mcg DAILY@0630 ORAL 12/09/18 06:30 01/08/19 06:29 12/11/18 06:56 Lisinopril (Zestril) 20 mg BID GT 12/08/18 18:00 01/07/19 08:59 12/11/18 08:17 Lorazepam (Ativan 2mg/ml 1ml) 2 mg Q2H PRN IV For Anxiety 12/04/18 14:00 12/11/18 13:59 12/09/18 15:42 Morphine Sulfate (Morphine Sulfate) 4 mg Q4H PRN IVP Severe Pain (Pain Scale 7-10) 12/04/18 14:00 12/11/18 13:59 12/11/18 08:17 Norepinephrine Bitartrate 4 mg/ Dextrose 254 ml @ 0 mls/hr Q24H IV 12/04/18 14:00 01/03/19 13:59 Pantoprazole (Protonix) 40 mg DAILY IVP 12/05/18 09:00 01/04/19 08:59 12/11/18 08:16 Tigecycline 50 mg/ Sodium Chloride 110 ml @ 220 mls/hr EVERY 12 HOURS IVPB 12/10/18 21:00 12/17/18 20:59 12/11/18 08:16 Rayo Bhatti MD Dec 11, 2018 09:44
--- NOTE | 2018-12-11 10:00 | NUR ---
NURSE NOTES: Patient turned and repositioned. No new orders at this time. Will continue plan of care.
--- NOTE | 2018-12-11 10:20 | NUR ---
RD ASSESSMENT & RECOMMENDATIONS SEE CARE ACTIVITY FOR COMPLETE ASSESSMENT DAILY ESTIMATED NEEDS: Needs based on Critical care, sepsis/ 67kg 22-28 kcals/kg 4634-3129 total kcals 1.2-2 g protein/kg 80-134 g total protein 25-30 mL/kg 8932-9269 total fluid mLs NUTRITION DIAGNOSIS: Swallowing difficulty R/T dysphagia as evidenced by pt is PEG dep, on GT feeding, orally intubated at this time. CURRENT TF:Jevity 1.2 @ 60ml/hr x 22 hrs + Prosource 1pkt QD ENTERAL NUTRITION RECOMMENDATIONS: Jevity 1.2 @ 60ml/hr x 22 hrs + Prosource 1pkt QD to provide 1320ml, 1584kcal, 73g + 11g prot, 1082ml free water * Maintain current TF + Prosource 1pkt daily * Hold 1 hour before and after Synthroid med * HOB over 30 degrees/ water flush per MD WITH CONSISTENTLY ELEV BGS, REC TF CHANGE TO GLUCERNA 1.2 Glucerna 1.2 @ 60ml/hr x 22 hrs + Prosource 1pkt QD 1320ml, 1584kcal, 79 +11g prot, 1062ml free water ADDITIONAL RECOMMENDATIONS: * Per SNF, HT=67", PH=928# (from 11/23/18) * Calibrated bedscale wt for accurate CBW * Monitor BGs closely, need for carb controlled TF formula, hypoglycemic agents -> h/o DM * Monitor lytes, replete as needed (low K and mag) .
--- NOTE | 2018-12-11 10:26 | Cardiac Electrophysiology PN ---
Assessment/Plan Assessment/Plan 1. Respiratory failure with elevated BNP. His echocardiogram showed ejection fraction of 55% to 60% with diastolic dysfunction. On Lasix 40 mg IV daily. 2. Pneumonia, respiratory failure on the ventilator as well as on broad- spectrum IV antibiotic per Infectious Diseases and Dr. Fritz. Still being weaned 3. Hypertension. On Lasix 40 mg IV daily and lisinopril 20 mg b.i.d. 4. Severe sepsis, likely due to pneumonia and bacteremia. 5. Diabetes 6. Dysphagia, status post PEG placement. ADELA RN Subjective Subjective In SR. In ICU on the vent in NAD. Alert in NAD. Being weaned. Objective Last 24 Hour Vital Signs Date Time Temp Pulse Resp B/P (MAP) Pulse Ox O2 Delivery O2 Flow Rate FiO2 12/11/18 09:18 96 24 30 12/11/18 09:15 30 12/11/18 09:14 99 12/11/18 09:00 85 19 115/72 (86) 100 12/11/18 08:17 143/70 12/11/18 08:00 30 12/11/18 08:00 98.9 89 19 144/70 (94) 100 12/11/18 08:00 95 12/11/18 08:00 Mechanical Ventilator 12/11/18 07:04 96 18 30 12/11/18 07:00 90 19 125/74 (91) 100 12/11/18 06:00 95 19 123/70 (87) 100 12/11/18 05:21 95 19 30 12/11/18 05:00 96 19 133/70 (91) 100 12/11/18 04:00 30 12/11/18 04:00 92 12/11/18 04:00 Mechanical Ventilator 12/11/18 04:00 98.8 94 17 141/78 (99) 100 12/11/18 03:33 97 20 30 12/11/18 03:00 96 18 125/59 (81) 100 12/11/18 02:00 95 18 132/59 (83) 100 12/11/18 01:50 98 17 30 12/11/18 01:00 101 19 125/73 (90) 100 12/11/18 00:00 30 12/11/18 00:00 99.6 99 19 132/73 (92) 100 12/11/18 00:00 93 12/11/18 00:00 Mechanical Ventilator 12/11/18 00:00 99 12/10/18 23:18 99 16 30 12/10/18 23:00 98 19 133/68 (89) 100 12/10/18 22:00 102 19 125/68 (87) 100 12/10/18 21:29 105 20 30 12/10/18 21:00 105 19 130/68 (88) 100 12/10/18 20:00 99.8 105 18 137/68 (91) 100 12/10/18 20:00 Mechanical Ventilator 12/10/18 20:00 30 12/10/18 20:00 99 12/10/18 19:03 106 20 30 12/10/18 19:00 93 17 133/69 (90) 99 12/10/18 18:00 102 17 125/64 (84) 99 12/10/18 17:23 97 20 30 12/10/18 17:12 134/67 12/10/18 17:00 94 19 121/63 (82) 100 12/10/18 16:00 99.3 94 17 134/67 (89) 100 12/10/18 16:00 30 12/10/18 16:00 93 12/10/18 16:00 Mechanical Ventilator 12/10/18 15:29 94 19 30 12/10/18 15:00 94 17 120/63 (82) 100 12/10/18 14:00 92 18 124/68 (86) 99 12/10/18 13:15 107 23 30 12/10/18 13:00 98 18 136/63 (87) 100 12/10/18 12:00 Mechanical Ventilator 12/10/18 12:00 99.0 97 18 135/70 (91) 99 12/10/18 12:00 99 12/10/18 11:00 96 18 126/65 (85) 98 12/10/18 10:41 30 12/10/18 10:35 99 22 30 Intake and Output 12/10/18 12/11/18 19:00 07:00 Intake Total 1140 ml 780 ml Output Total 1350 ml 740 ml Balance -210 ml 40 ml Free Water 120 ml 60 ml IV Total 360 ml 110 ml Tube Feeding 660 ml 610 ml Output Urine Total 1350 ml 740 ml # Bowel Movements 1 3 Laboratory Tests Test 12/11/18 04:00 12/11/18 05:10 Arterial Blood pH 7.539 (7.350-7.450) Arterial Blood Partial Pressure CO2 38.2 mmHg (35.0-45.0) Arterial Blood Partial Pressure O2 76.1 mmHg (75.0-100.0) Arterial Blood HCO3 31.9 mmol/L (22.0-26.0) H Arterial Blood Oxygen Saturation 94.5 % (95-100) L Arterial Blood Base Excess 8.7 (-2-2) H Aroldo Test Positive White Blood Count 12.3 K/UL (4.8-10.8) H Red Blood Count 3.44 M/UL (4.70-6.10) L Hemoglobin 8.9 G/DL (14.2-18.0) L Hematocrit 27.9 % (42.0-52.0) L Mean Corpuscular Volume 81 FL (80-99) Mean Corpuscular Hemoglobin 25.7 PG (27.0-31.0) L Mean Corpuscular Hemoglobin Concent 31.8 G/DL (32.0-36.0) L Red Cell Distribution Width 17.8 % (11.6-14.8) H Platelet Count 437 K/UL (150-450) Mean Platelet Volume 6.9 FL (6.5-10.1) Neutrophils (%) (Auto) 68.4 % (45.0-75.0) Lymphocytes (%) (Auto) 20.5 % (20.0-45.0) Monocytes (%) (Auto) 7.2 % (1.0-10.0) Eosinophils (%) (Auto) 3.2 % (0.0-3.0) H Basophils (%) (Auto) 0.7 % (0.0-2.0) Sodium Level 142 MMOL/L (136-145) Potassium Level 3.3 MMOL/L (3.5-5.1) L Chloride Level 104 MMOL/L (98-107) Carbon Dioxide Level 30 MMOL/L (21-32) Anion Gap 8 mmol/L (5-15) Blood Urea Nitrogen 32 mg/dL (7-18) H Creatinine 1.0 MG/DL (0.55-1.30) Estimat Glomerular Filtration Rate mL/min (>60) Glucose Level 99 MG/DL (74-106) Calcium Level 8.7 MG/DL (8.5-10.1) Phosphorus Level 4.0 MG/DL (2.5-4.9) Magnesium Level 1.7 MG/DL (1.8-2.4) L Total Bilirubin 0.5 MG/DL (0.2-1.0) Aspartate Amino Transf (AST/SGOT) 19 U/L (15-37) Alanine Aminotransferase (ALT/SGPT) 21 U/L (12-78) Alkaline Phosphatase 91 U/L (46-116) Total Protein 7.6 G/DL (6.4-8.2) Albumin 1.5 G/DL (3.4-5.0) L Globulin 6.1 g/dL Albumin/Globulin Ratio 0.2 (1.0-2.7) L Objective HEAD AND NECK: Orally intubated. LUNGS: Coarse rhonchi. CARDIOVASCULAR: Regular S1 and S2 and mildly tachycardic. ABDOMEN: Status post G-tube. EXTREMITIES: No pitting edema. Darrell Cevallos MD Dec 11, 2018 10:26
--- NOTE | 2018-12-11 11:26 | Pulmonolgy Critical Care Note ---
Critical Care - Asmt/Plan Problems: (1) Acute respiratory failure (2) Septic shock (3) Hypothyroidism (4) History of hypertension (5) Feeding by G-tube Respiratory: monitor respiratory rate, adjust FIO2, CXR Cardiac: continue to monitor HR/BP Renal: F/U I&O Infectious Disease: check cultures Gastrointestinal: continue feedings/current rate Endocrine: monitor blood sugar Hematologic: monitor H/H, transfuse if hgb<8.5 Neurologic: PRN Ativan, PRN Morphine, keep patient comfortable Prophylaxis: Protonix, Heparin Notes Reviewed: clinical faculty, cardio Discussed with: nurses, consultants, patient case managerentertainment manager - Objective Last 24 Hour Vital Signs Date Time Temp Pulse Resp B/P (MAP) Pulse Ox O2 Delivery O2 Flow Rate FiO2 12/11/18 11:15 115 23 30 12/11/18 11:00 80 19 120/70 (87) 100 12/11/18 10:00 82 19 122/74 (90) 100 12/11/18 09:18 96 24 30 12/11/18 09:15 30 12/11/18 09:14 99 12/11/18 09:00 85 19 115/72 (86) 100 12/11/18 08:17 143/70 12/11/18 08:00 30 12/11/18 08:00 98.9 89 19 144/70 (94) 100 12/11/18 08:00 95 12/11/18 08:00 Mechanical Ventilator 12/11/18 07:04 96 18 30 12/11/18 07:00 90 19 125/74 (91) 100 12/11/18 06:00 95 19 123/70 (87) 100 12/11/18 05:21 95 19 30 12/11/18 05:00 96 19 133/70 (91) 100 12/11/18 04:00 30 12/11/18 04:00 92 12/11/18 04:00 Mechanical Ventilator 12/11/18 04:00 98.8 94 17 141/78 (99) 100 12/11/18 03:33 97 20 30 12/11/18 03:00 96 18 125/59 (81) 100 12/11/18 02:00 95 18 132/59 (83) 100 12/11/18 01:50 98 17 30 12/11/18 01:00 101 19 125/73 (90) 100 1/29/19 00:00 30 12/11/18 00:00 99.6 99 19 132/73 (92) 100 12/11/18 00:00 93 12/11/18 00:00 Mechanical Ventilator 12/11/18 00:00 99 12/10/18 23:18 99 16 30 12/10/18 23:00 98 19 133/68 (89) 100 12/10/18 22:00 102 19 125/68 (87) 100 12/10/18 21:29 105 20 30 12/10/18 21:00 105 19 130/68 (88) 100 12/10/18 20:00 99.8 105 18 137/68 (91) 100 12/10/18 20:00 Mechanical Ventilator 12/10/18 20:00 30 12/10/18 20:00 99 12/10/18 19:03 106 20 30 12/10/18 19:00 93 17 133/69 (90) 99 12/10/18 18:00 102 17 125/64 (84) 99 12/10/18 17:23 97 20 30 12/10/18 17:12 134/67 12/10/18 17:00 94 19 121/63 (82) 100 12/10/18 16:00 99.3 94 17 134/67 (89) 100 12/10/18 16:00 30 12/10/18 16:00 93 12/10/18 16:00 Mechanical Ventilator 12/10/18 15:29 94 19 30 12/10/18 15:00 94 17 120/63 (82) 100 12/10/18 14:00 92 18 124/68 (86) 99 12/10/18 13:15 107 23 30 12/10/18 13:00 98 18 136/63 (87) 100 12/10/18 12:00 Mechanical Ventilator 12/10/18 12:00 99.0 97 18 135/70 (91) 99 12/10/18 12:00 99 Status: awake Condition: critical HEENT: atraumatic Lungs: clear Heart: HR/BP stable Abdomen: soft Extremities: no C/C/E Decubiti: location Accucheck: 101 Critical Care - Subjective ROS Limited/Unobtainable: Yes Intubation Day: 7 Condition: critical EKG Rhythm: Sinus Rhythm FI02: 30 Vent Support Breath Rate: 16 Vent Support Mode: AC Vent Tidal Volume: 600 Sputum Amount: Moderate PEEP: 0.0 PIP: 27 Tube Feeding Amount: 60 I&O: Intake and Output 12/10/18 12/11/18 19:00 07:00 Intake Total 1140 ml 780 ml Output Total 1350 ml 740 ml Balance -210 ml 40 ml Free Water 120 ml 60 ml IV Total 360 ml 110 ml Tube Feeding 660 ml 610 ml Output Urine Total 1350 ml 740 ml # Bowel Movements 1 3 CXR: bilateral infiltrate, ET in good position ET-Tube: 8.0 ET Position: 23 Labs: Laboratory Tests Test 12/11/18 04:00 12/11/18 05:10 Arterial Blood pH 7.539 (7.350-7.450) Arterial Blood Partial Pressure CO2 38.2 mmHg (35.0-45.0) Arterial Blood Partial Pressure O2 76.1 mmHg (75.0-100.0) Arterial Blood HCO3 31.9 mmol/L (22.0-26.0) H Arterial Blood Oxygen Saturation 94.5 % (95-100) L Arterial Blood Base Excess 8.7 (-2-2) H Aroldo Test Positive White Blood Count 12.3 K/UL (4.8-10.8) H Red Blood Count 3.44 M/UL (4.70-6.10) L Hemoglobin 8.9 G/DL (14.2-18.0) L Hematocrit 27.9 % (42.0-52.0) L Mean Corpuscular Volume 81 FL (80-99) Mean Corpuscular Hemoglobin 25.7 PG (27.0-31.0) L Mean Corpuscular Hemoglobin Concent 31.8 G/DL (32.0-36.0) L Red Cell Distribution Width 17.8 % (11.6-14.8) H Platelet Count 437 K/UL (150-450) Mean Platelet Volume 6.9 FL (6.5-10.1) Neutrophils (%) (Auto) 68.4 % (45.0-75.0) Lymphocytes (%) (Auto) 20.5 % (20.0-45.0) Monocytes (%) (Auto) 7.2 % (1.0-10.0) Eosinophils (%) (Auto) 3.2 % (0.0-3.0) H Basophils (%) (Auto) 0.7 % (0.0-2.0) Sodium Level 142 MMOL/L (136-145) Potassium Level 3.3 MMOL/L (3.5-5.1) L Chloride Level 104 MMOL/L (98-107) Carbon Dioxide Level 30 MMOL/L (21-32) Anion Gap 8 mmol/L (5-15) Blood Urea Nitrogen 32 mg/dL (7-18) H Creatinine 1.0 MG/DL (0.55-1.30) Estimat Glomerular Filtration Rate mL/min (>60) Glucose Level 99 MG/DL (74-106) Calcium Level 8.7 MG/DL (8.5-10.1) Phosphorus Level 4.0 MG/DL (2.5-4.9) Magnesium Level 1.7 MG/DL (1.8-2.4) L Total Bilirubin 0.5 MG/DL (0.2-1.0) Aspartate Amino Transf (AST/SGOT) 19 U/L (15-37) Alanine Aminotransferase (ALT/SGPT) 21 U/L (12-78) Alkaline Phosphatase 91 U/L (46-116) Total Protein 7.6 G/DL (6.4-8.2) Albumin 1.5 G/DL (3.4-5.0) L Globulin 6.1 g/dL Albumin/Globulin Ratio 0.2 (1.0-2.7) L Isaiah Fritz MD Dec 11, 2018 11:26
--- NOTE | 2018-12-11 11:36 | NUR ---
RADIOLOGY DEPT CHEST X-RAY DONE-P.DYE
--- NOTE | 2018-12-11 11:56 | NUR ---
RESPIRATORY NOTE: Started weaning pt. at 0915 on CPAP, pt. tolerated well for two hours, Sp02 above 92%. Placed pt. back on AC vent settings, DARIANA Soto notified.
--- NOTE | 2018-12-11 11:58 | Diagnostic Imaging Report ---
Indication: Dyspnea Technique: One view of the chest Comparison: On 02/07/2019 Findings: Stable satisfactory position of endotracheal tube. Bilateral interstitial and airspace infiltrates versus edema per unchanged. There appears to be increased pleural fluid on the right. The heart size is normal. Impression: Unchanged bilateral interstitial and airspace infiltrates versus edema Suspect increasing pleural fluid on the right, over one day
--- NOTE | 2018-12-11 12:00 | NUR ---
NURSE NOTES: Turned and repositioned. Orders obtained to replace potassium and magnesium. Will continue plan of care.
--- NOTE | 2018-12-11 14:00 | NUR ---
NURSE NOTES: TUrned and repositioned. No new orders. Will continue plan of care.
--- NOTE | 2018-12-11 16:00 | NUR ---
NURSE NOTES: Patient turned and repositioned. No new orders at this time. VSS. Will continue to monitor patient.
--- NOTE | 2018-12-11 17:15 | Internal Med Progress Note ---
Subjective Date of Service: Dec 11, 2018 Physician Name Roni Carson Attending Physician Isaiah Fritz MD Current Medications Medications (Trade) Dose Ordered Sig/Courtney Route PRN Reason Start Time Stop Time Status Last Admin Dose Admin Acetaminophen (Tylenol) 650 mg Q4H PRN ORAL fever 12/04/18 14:00 01/03/19 13:59 12/07/18 19:26 Furosemide (Lasix) 40 mg DAILY IV 12/06/18 18:00 01/05/19 17:59 12/11/18 08:16 Heparin Sodium (Porcine) (Heparin 5000 units/ml) 5,000 units EVERY 12 HOURS SUBQ 12/04/18 21:00 01/03/19 20:59 12/11/18 08:18 Levothyroxine Sodium (Synthroid) 25 mcg DAILY@0630 ORAL 12/09/18 06:30 01/08/19 06:29 12/11/18 06:56 Lisinopril (Zestril) 20 mg BID GT 12/08/18 18:00 01/07/19 08:59 12/11/18 08:17 Norepinephrine Bitartrate 4 mg/ Dextrose 254 ml @ 0 mls/hr Q24H IV 12/04/18 14:00 01/03/19 13:59 Pantoprazole (Protonix) 40 mg DAILY IVP 12/05/18 09:00 01/04/19 08:59 12/11/18 08:16 Tigecycline 50 mg/ Sodium Chloride 110 ml @ 220 mls/hr EVERY 12 HOURS IVPB 12/10/18 21:00 12/17/18 20:59 12/11/18 08:16 Allergies: Coded Allergies: No Known Allergies (Unverified , 12/04/18) ROS Limited/Unobtainable: Yes Subjective 73 YO M admitted with respiratory failure. Now pneumonia. Intubated and sedated. ICU. Cover for Int Garret-Dr Matthews Objective Last Vital Signs Date Time Temp Pulse Resp B/P (MAP) Pulse Ox O2 Delivery O2 Flow Rate FiO2 12/11/18 16:58 98 17 30 12/11/18 16:00 Mechanical Ventilator 12/11/18 16:00 98.9 126/70 (88) 100 12/04/18 16:00 4.0 Laboratory Tests Test 12/11/18 04:00 12/11/18 05:10 Arterial Blood pH 7.539 (7.350-7.450) Arterial Blood Partial Pressure CO2 38.2 mmHg (35.0-45.0) Arterial Blood Partial Pressure O2 76.1 mmHg (75.0-100.0) Arterial Blood HCO3 31.9 mmol/L (22.0-26.0) H Arterial Blood Oxygen Saturation 94.5 % (95-100) L Arterial Blood Base Excess 8.7 (-2-2) H Aroldo Test Positive White Blood Count 12.3 K/UL (4.8-10.8) H Red Blood Count 3.44 M/UL (4.70-6.10) L Hemoglobin 8.9 G/DL (14.2-18.0) L Hematocrit 27.9 % (42.0-52.0) L Mean Corpuscular Volume 81 FL (80-99) Mean Corpuscular Hemoglobin 25.7 PG (27.0-31.0) L Mean Corpuscular Hemoglobin Concent 31.8 G/DL (32.0-36.0) L Red Cell Distribution Width 17.8 % (11.6-14.8) H Platelet Count 437 K/UL (150-450) Mean Platelet Volume 6.9 FL (6.5-10.1) Neutrophils (%) (Auto) 68.4 % (45.0-75.0) Lymphocytes (%) (Auto) 20.5 % (20.0-45.0) Monocytes (%) (Auto) 7.2 % (1.0-10.0) Eosinophils (%) (Auto) 3.2 % (0.0-3.0) H Basophils (%) (Auto) 0.7 % (0.0-2.0) Sodium Level 142 MMOL/L (136-145) Potassium Level 3.3 MMOL/L (3.5-5.1) L Chloride Level 104 MMOL/L (98-107) Carbon Dioxide Level 30 MMOL/L (21-32) Anion Gap 8 mmol/L (5-15) Blood Urea Nitrogen 32 mg/dL (7-18) H Creatinine 1.0 MG/DL (0.55-1.30) Estimat Glomerular Filtration Rate mL/min (>60) Glucose Level 99 MG/DL (74-106) Calcium Level 8.7 MG/DL (8.5-10.1) Phosphorus Level 4.0 MG/DL (2.5-4.9) Magnesium Level 1.7 MG/DL (1.8-2.4) L Total Bilirubin 0.5 MG/DL (0.2-1.0) Aspartate Amino Transf (AST/SGOT) 19 U/L (15-37) Alanine Aminotransferase (ALT/SGPT) 21 U/L (12-78) Alkaline Phosphatase 91 U/L (46-116) Total Protein 7.6 G/DL (6.4-8.2) Albumin 1.5 G/DL (3.4-5.0) L Globulin 6.1 g/dL Albumin/Globulin Ratio 0.2 (1.0-2.7) L Intake and Output 12/10/18 12/11/18 19:00 07:00 Intake Total 1140 ml 780 ml Output Total 1350 ml 740 ml Balance -210 ml 40 ml Free Water 120 ml 60 ml IV Total 360 ml 110 ml Tube Feeding 660 ml 610 ml Output Urine Total 1350 ml 740 ml # Bowel Movements 1 3 Objective General Appearance: WD/WN, no apparent distress, lethargic EENT: PERRL/EOMI, normal ENT inspection Neck: non-tender, normal alignment, supple, normal inspection Cardiovascular: normal peripheral pulses, normal rate, regular rhythm, no gallop/murmur, no JVD Respiratory/Chest: Mech vent; chest wall non-tender, respiratory distress, crackles/rales, rhonchi - bilaterally, expiratory wheezing Abdomen: normal bowel sounds, non tender, soft, no organomegaly, no mass Extremities: normal range of motion, non-tender Skin: normal pigmentation, warm/dry Assessment/Plan Problem List: (1) Pneumonia Assessment & Plan: See ID note. Continue tegacycline (2) Anemia Assessment & Plan: S/P tansfusion 2 units PRBC 12/05/18. (3) Elevated troponin Assessment & Plan: See cardiology consult. (4) COPD (chronic obstructive pulmonary disease) (5) HTN (hypertension) Assessment & Plan: Currently on levophed (6) CHF (congestive heart failure) Assessment & Plan: LVEF=55-60% (7) Diabetes mellitus, type II (8) Chronic renal failure Assessment & Plan: See nephrology note. (9) Dysphagia (10) CAD (coronary artery disease) (11) Acute respiratory failure Assessment & Plan: Weaning protocol; Continue mech vent per pulm (12) Hypothyroidism Status: not improved Roni Carson MD Dec 11, 2018 17:15
--- NOTE | 2018-12-11 18:00 | NUR ---
NURSE NOTES: Patient turned and repositioned. No new orders at this time. Will continue plan of care.
--- NOTE | 2018-12-11 19:12 | NUR ---
HAND-OFF: Report given to DARIANA Cobos using sbar. VSS. No distress noted.
--- NOTE | 2018-12-11 19:30 | NUR ---
NURSE NOTES:Received pt awake and alert, orally intubated on AC mode, bilateral soft wrist restraints maintained for safety to avoid self extubation. SR on the monitor bp stable. Temp 100.4F- cooling measures started. Suctioned tn whitish secretions moderate in amt.02 sat 100% HOB kept elevated. Watch for any resp. distress.
--- NOTE | 2018-12-11 21:00 | NUR ---
NURSE NOTES:Pt had moderate watery stools- cleaned up pt.
--- NOTE | 2018-12-11 23:00 | NUR ---
NURSE NOTES:temp 99.7 resting well at this time.
[2018-12-12] VITALS (23 sets, daily range): BP systolic 102–164; BP diastolic 53–80
--- NOTE | 2018-12-12 01:00 | NUR ---
NURSE NOTES:Turned q 2hrs prn with good skin care done. Skin remained intact . Rt foot and left hand IV site patent to flushes.
--- NOTE | 2018-12-12 03:00 | NUR ---
NURSE NOTES:Pt had another watery stools, cleaned up pt.
--- NOTE | 2018-12-12 05:00 | NUR ---
NURSE NOTES:Complete bath with bed changed done. Suctioned and oral care rendered.
[2018-12-12 05:44] LABS: BASOPHILS % (AUTO) 0.9 % (0.0-2.0); EOSINOPHILS % (AUTO) 3.2 % (0.0-3.0); HEMATOCRIT 28.9 % (42.0-52.0); HEMOGLOBIN 9.1 G/DL (14.2-18.0); LYMPHOCYTES % (AUTO) 18.9 % (20.0-45.0); MEAN CORPUSCULAR VOLUME 81 FL (80-99); PLATELET COUNT 442 K/UL (150-450); RED BLOOD COUNT 3.56 M/UL (4.70-6.10); WHITE BLOOD COUNT 13.3 K/UL (4.8-10.8)
--- NOTE | 2018-12-12 06:00 | NUR ---
NURSE NOTES:No resp. distress noted.vss
[2018-12-12] MEDS: Levothyroxine 25mcg tab ORAL SCH (06:31)
[2018-12-12 06:35] LABS: ALANINE AMINOTRANSFERASE 19 U/L (12-78); ALBUMIN 1.5 G/DL (3.4-5.0); ALBUMIN/GLOBULIN RATIO 0.2 (1.0-2.7); ALKALINE PHOSPHATASE 92 U/L (46-116); ANION GAP 6 mmol/L (5-15); ASPARTATE AMINO TRANSFERASE 19 U/L (15-37); BILIRUBIN,TOTAL 0.5 MG/DL (0.2-1.0); BLOOD UREA NITROGEN 44 mg/dL (7-18); CALCIUM 8.8 MG/DL (8.5-10.1); CARBON DIOXIDE 31 MMOL/L (21-32); CHLORIDE 107 MMOL/L (98-107); CREATININE 1.1 MG/DL (0.55-1.30); PHOSPHORUS 5.2 MG/DL (2.5-4.9); POTASSIUM 3.7 MMOL/L (3.5-5.1); SODIUM 144 MMOL/L (136-145)
--- NOTE | 2018-12-12 07:08 | NUR ---
HAND-OFF: Report given to Brittany Teran using sbar.
--- NOTE | 2018-12-12 07:15 | NUR ---
RESPIRATORY NOTE: Patient received mechanically ventilated on PB 840 with current ordered vent settings. Patient is orally intubated with ETT tube 8.0 with 23cm at the lip and it is secured with an anchor fast. Patient presents with bilateral coarse breath sounds and small amount of clear secretions were suctioned without incident. The vent is connected to a red outlet and there is an ambu bag available at the bedside. Vent alarms are functional and audible. Will continue to monitor patient.
--- NOTE | 2018-12-12 08:00 | NUR ---
NURSE NOTES: Patient received lying in bed, asleep, spontaneously opens eyes. No non-verbal signs of pain noted, able to make needs known by pointing. Orally intubated, ET size 8, lip line at 23, left side, with vent settings: AC-16, TV-600, Fio2-30%, No PEEP, oxygen saturation of 99%, no acute distress. HOB elevated for aspiration precaution while On g-tube feeding. Jevity 1.2 at 60 ml/hr, no residual noted, tolerating feeding. Right Arm, precaution, chronic DVT. Right foot IV 22g, asymptomatic, TKO fluid running. Left hand IV 24g, flushed, patent, saline lock. Bilateral soft wrist restraints in place, pulses palpable, skin intact. Andrade catheter in place, draining to yellow urine. Safety measures implemented. Will continue to monitor. Plan for possible extubation today if stable
[2018-12-12] MEDS: Pantoprazole Inj IVP SCH (09:05)
[2018-12-12] MEDS: Lisinopril 10mg tab GT SCH ×2 (09:05→18:05)
[2018-12-12] MEDS: Tigecycline 50 MG in NS 110 ML IVPB SCH ×2 (09:05→21:06)
[2018-12-12] MEDS: Heparin 5000 units/ml inj SUBQ SCH ×2 (09:08→21:05)
--- NOTE | 2018-12-12 09:18 | NUR ---
RADIOLOGY DEPT CHEST X-RAY DONE.-P.DY
--- NOTE | 2018-12-12 09:57 | Pulmonolgy Critical Care Note ---
Critical Care - Asmt/Plan Problems: (1) Acute respiratory failure (2) Septic shock (3) Hypothyroidism (4) History of hypertension (5) Feeding by G-tube Respiratory: monitor respiratory rate, adjust FIO2, CXR, ABG, other - still thick secretions Cardiac: continue to monitor HR/BP Renal: F/U I&O Infectious Disease: check cultures, continue antibiotics, other - wbc still high Gastrointestinal: continue feedings/current rate, hold feedings Endocrine: monitor blood sugar Hematologic: monitor H/H, transfuse if hgb<8.5 Neurologic: PRN Ativan, keep patient comfortable Prophylaxis: Protonix, Heparin Notes Reviewed: cook specialty, renal Discussed with: nurses, consultants, correctional case records supervisorcritical care unit manager - Objective Last 24 Hour Vital Signs Date Time Temp Pulse Resp B/P (MAP) Pulse Ox O2 Delivery O2 Flow Rate FiO2 12/12/18 09:05 164/68 12/12/18 09:00 78 16 125/70 (88) 100 12/12/18 08:15 30 12/12/18 08:00 99.0 88 16 164/68 (100) 100 12/12/18 08:00 30 12/12/18 08:00 Mechanical Ventilator 12/12/18 07:12 78 16 30 12/12/18 07:00 80 16 115/68 (84) 100 12/12/18 06:00 83 16 113/63 (80) 100 12/12/18 05:00 85 16 122/58 (79) 100 12/12/18 04:42 91 20 30 12/12/18 04:00 89 12/12/18 04:00 99.6 85 18 125/61 (82) 100 12/12/18 04:00 Mechanical Ventilator 12/12/18 04:00 30 12/12/18 03:28 90 16 30 12/12/18 03:00 90 18 114/53 (73) 100 12/12/18 02:00 88 16 109/74 (86) 100 12/12/18 01:30 84 16 30 12/12/18 01:00 84 16 104/64 (77) 100 12/12/18 00:00 Mechanical Ventilator 12/12/18 00:00 99.7 84 18 102/57 (72) 100 12/12/18 00:00 90 12/12/18 00:00 30 12/11/18 23:08 88 16 30 12/11/18 23:00 95 18 110/50 (70) 100 12/11/18 22:00 92 18 107/54 (71) 100 12/11/18 21:24 95 17 30 12/11/18 21:00 95 18 109/57 (74) 100 12/11/18 20:00 100.4 93 16 116/50 (72) 99 12/11/18 20:00 90 12/11/18 20:00 30 12/11/18 20:00 Mechanical Ventilator 12/11/18 19:30 91 16 30 12/11/18 19:00 96 18 120/65 (83) 99 12/11/18 18:21 133/78 12/11/18 18:00 96 18 109/57 (74) 99 12/11/18 18:00 88 18 133/78 (96) 100 12/11/18 17:00 80 18 120/82 (95) 100 12/11/18 16:58 98 17 30 12/11/18 16:00 Mechanical Ventilator 12/11/18 16:00 98.9 82 20 126/70 (88) 100 12/11/18 16:00 89 12/11/18 16:00 30 12/11/18 15:16 94 16 30 12/11/18 15:00 97 22 122/85 (97) 100 12/11/18 14:00 89 17 122/85 (97) 100 12/11/18 13:29 102 16 30 12/11/18 13:00 100 17 117/97 (104) 100 12/11/18 12:03 138/77 12/11/18 12:00 Mechanical Ventilator 12/11/18 12:00 99.0 80 19 128/72 (90) 100 12/11/18 12:00 90 12/11/18 11:15 115 23 30 12/11/18 11:00 80 19 120/70 (87) 100 12/11/18 11:00 30 12/11/18 10:00 82 19 122/74 (90) 100 Status: awake Condition: critical HEENT: atraumatic Lungs: rales, rhonchi Heart: HR/BP stable, regular Abdomen: soft, active bowel sounds Extremities: edema Decubiti: stage Micro: Microbiology Date/Time Source Procedure Growth Status 12/12/18 04:30 Stool Clostridium difficile Toxin Assay - Final Complete Accucheck: 101 Critical Care - Subjective ROS Limited/Unobtainable: Yes Condition: critical EKG Rhythm: Sinus Rhythm FI02: 30 Vent Support Breath Rate: 16 Vent Support Mode: CPAP Vent Tidal Volume: 600 Sputum Amount: Small PEEP: 0.0 PIP: 22 Tube Feeding Amount: 60 I&O: Intake and Output 12/11/18 12/12/18 19:00 07:00 Intake Total 830 ml 860 ml Output Total 860 ml 670 ml Balance -30 ml 190 ml Free Water 90 ml IV Total 110 ml 110 ml Tube Feeding 720 ml 660 ml Output Urine Total 860 ml 670 ml # Bowel Movements 3 CXR: extensive bilateral infiltrate ET-Tube: 8.0 ET Position: 23 Labs: Laboratory Tests Test 12/12/18 04:30 12/12/18 08:00 White Blood Count 13.3 K/UL (4.8-10.8) H Red Blood Count 3.56 M/UL (4.70-6.10) L Hemoglobin 9.1 G/DL (14.2-18.0) L Hematocrit 28.9 % (42.0-52.0) L Mean Corpuscular Volume 81 FL (80-99) Mean Corpuscular Hemoglobin 25.6 PG (27.0-31.0) L Mean Corpuscular Hemoglobin Concent 31.6 G/DL (32.0-36.0) L Red Cell Distribution Width 18.0 % (11.6-14.8) H Platelet Count 442 K/UL (150-450) Mean Platelet Volume 6.9 FL (6.5-10.1) Neutrophils (%) (Auto) 71.0 % (45.0-75.0) Lymphocytes (%) (Auto) 18.9 % (20.0-45.0) L Monocytes (%) (Auto) 6.0 % (1.0-10.0) Eosinophils (%) (Auto) 3.2 % (0.0-3.0) H Basophils (%) (Auto) 0.9 % (0.0-2.0) Sodium Level 144 MMOL/L (136-145) Potassium Level 3.7 MMOL/L (3.5-5.1) Chloride Level 107 MMOL/L (98-107) Carbon Dioxide Level 31 MMOL/L (21-32) Anion Gap 6 mmol/L (5-15) Blood Urea Nitrogen 44 mg/dL (7-18) H Creatinine 1.1 MG/DL (0.55-1.30) Estimat Glomerular Filtration Rate mL/min (>60) Glucose Level 117 MG/DL (74-106) H Calcium Level 8.8 MG/DL (8.5-10.1) Phosphorus Level 5.2 MG/DL (2.5-4.9) H Magnesium Level 2.4 MG/DL (1.8-2.4) Total Bilirubin 0.5 MG/DL (0.2-1.0) Aspartate Amino Transf (AST/SGOT) 19 U/L (15-37) Alanine Aminotransferase (ALT/SGPT) 19 U/L (12-78) Alkaline Phosphatase 92 U/L (46-116) Total Protein 7.9 G/DL (6.4-8.2) Albumin 1.5 G/DL (3.4-5.0) L Globulin 6.4 g/dL Albumin/Globulin Ratio 0.2 (1.0-2.7) L Arterial Blood pH 7.522 (7.350-7.450) Arterial Blood Partial Pressure CO2 39.3 mmHg (35.0-45.0) Arterial Blood Partial Pressure O2 90.8 mmHg (75.0-100.0) Arterial Blood HCO3 31.5 mmol/L (22.0-26.0) H Arterial Blood Oxygen Saturation 96.6 % (95-100) Arterial Blood Base Excess 8.1 (-2-2) H Aroldo Test Positive Isaiah Fritz MD Dec 12, 2018 09:57
--- NOTE | 2018-12-12 10:00 | NUR ---
NURSE NOTES: Patient turned and repositioned. TOlerating weaning. No new orders. VSS. Will continue plan of care.
--- NOTE | 2018-12-12 12:00 | NUR ---
NURSE NOTES: Patient turned and repositioned. No new orders at this time. Will continue plan of care
--- NOTE | 2018-12-12 12:50 | Internal Med Progress Note ---
Subjective Date of Service: Dec 12, 2018 Physician Name Roni Carson Attending Physician Isaiah Fritz MD Current Medications Medications (Trade) Dose Ordered Sig/Courtney Route PRN Reason Start Time Stop Time Status Last Admin Dose Admin Acetaminophen (Tylenol) 650 mg Q4H PRN ORAL fever 12/04/18 14:00 01/03/19 13:59 12/07/18 19:26 Furosemide (Lasix) 40 mg DAILY IV 12/06/18 18:00 01/05/19 17:59 12/12/18 09:05 Heparin Sodium (Porcine) (Heparin 5000 units/ml) 5,000 units EVERY 12 HOURS SUBQ 12/04/18 21:00 01/03/19 20:59 12/12/18 09:08 Levothyroxine Sodium (Synthroid) 25 mcg DAILY@0630 ORAL 12/09/18 06:30 01/08/19 06:29 12/12/18 06:31 Lisinopril (Zestril) 20 mg BID GT 12/08/18 18:00 01/07/19 08:59 12/12/18 09:05 Norepinephrine Bitartrate 4 mg/ Dextrose 254 ml @ 0 mls/hr Q24H IV 12/04/18 14:00 01/03/19 13:59 Pantoprazole (Protonix) 40 mg DAILY IVP 12/05/18 09:00 01/04/19 08:59 12/12/18 09:05 Tigecycline 50 mg/ Sodium Chloride 110 ml @ 220 mls/hr EVERY 12 HOURS IVPB 12/10/18 21:00 12/17/18 20:59 12/12/18 09:05 Allergies: Coded Allergies: No Known Allergies (Unverified , 12/04/18) Subjective 73 YO M admitted with respiratory failure. Now pneumonia. Intubated and sedated. ICU. Cover for Int Garret-Dr Matthews Objective Last Vital Signs Date Time Temp Pulse Resp B/P (MAP) Pulse Ox O2 Delivery O2 Flow Rate FiO2 12/12/18 11:00 85 15 128/80 (96) 100 12/12/18 10:39 30 12/12/18 08:00 99.0 12/12/18 08:00 Mechanical Ventilator 12/04/18 16:00 4.0 Laboratory Tests Test 12/12/18 04:12/12/18 08:00 White Blood Count 13.3 K/UL (4.8-10.8) H Red Blood Count 3.56 M/UL (4.70-6.10) L Hemoglobin 9.1 G/DL (14.2-18.0) L Hematocrit 28.9 % (42.0-52.0) L Mean Corpuscular Volume 81 FL (80-99) Mean Corpuscular Hemoglobin 25.6 PG (27.0-31.0) L Mean Corpuscular Hemoglobin Concent 31.6 G/DL (32.0-36.0) L Red Cell Distribution Width 18.0 % (11.6-14.8) H Platelet Count 442 K/UL (150-450) Mean Platelet Volume 6.9 FL (6.5-10.1) Neutrophils (%) (Auto) 71.0 % (45.0-75.0) Lymphocytes (%) (Auto) 18.9 % (20.0-45.0) L Monocytes (%) (Auto) 6.0 % (1.0-10.0) Eosinophils (%) (Auto) 3.2 % (0.0-3.0) H Basophils (%) (Auto) 0.9 % (0.0-2.0) Sodium Level 144 MMOL/L (136-145) Potassium Level 3.7 MMOL/L (3.5-5.1) Chloride Level 107 MMOL/L (98-107) Carbon Dioxide Level 31 MMOL/L (21-32) Anion Gap 6 mmol/L (5-15) Blood Urea Nitrogen 44 mg/dL (7-18) H Creatinine 1.1 MG/DL (0.55-1.30) Estimat Glomerular Filtration Rate mL/min (>60) Glucose Level 117 MG/DL (74-106) H Calcium Level 8.8 MG/DL (8.5-10.1) Phosphorus Level 5.2 MG/DL (2.5-4.9) H Magnesium Level 2.4 MG/DL (1.8-2.4) Total Bilirubin 0.5 MG/DL (0.2-1.0) Aspartate Amino Transf (AST/SGOT) 19 U/L (15-37) Alanine Aminotransferase (ALT/SGPT) 19 U/L (12-78) Alkaline Phosphatase 92 U/L (46-116) Total Protein 7.9 G/DL (6.4-8.2) Albumin 1.5 G/DL (3.4-5.0) L Globulin 6.4 g/dL Albumin/Globulin Ratio 0.2 (1.0-2.7) L Arterial Blood pH 7.522 (7.350-7.450) Arterial Blood Partial Pressure CO2 39.3 mmHg (35.0-45.0) Arterial Blood Partial Pressure O2 90.8 mmHg (75.0-100.0) Arterial Blood HCO3 31.5 mmol/L (22.0-26.0) H Arterial Blood Oxygen Saturation 96.6 % (95-100) Arterial Blood Base Excess 8.1 (-2-2) H Aroldo Test Positive Microbiology Date/Time Source Procedure Growth Status 12/12/18 04:30 Stool Clostridium difficile Toxin Assay - Final Complete Intake and Output 12/11/18 12/12/18 19:00 07:00 Intake Total 830 ml 860 ml Output Total 860 ml 670 ml Balance -30 ml 190 ml Free Water 90 ml IV Total 110 ml 110 ml Tube Feeding 720 ml 660 ml Output Urine Total 860 ml 670 ml # Bowel Movements 3 Objective General Appearance: WD/WN, no apparent distress, lethargic EENT: PERRL/EOMI, normal ENT inspection Neck: non-tender, normal alignment, supple, normal inspection Cardiovascular: normal peripheral pulses, normal rate, regular rhythm, no gallop/murmur, no JVD Respiratory/Chest: Mech vent; chest wall non-tender, respiratory distress, crackles/rales, rhonchi - bilaterally, expiratory wheezing Abdomen: normal bowel sounds, non tender, soft, no organomegaly, no mass Extremities: normal range of motion, non-tender Skin: normal pigmentation, warm/dry Assessment/Plan Problem List: (1) Pneumonia Assessment & Plan: See ID note. Continue tegacycline (2) Anemia Assessment & Plan: S/P tansfusion 2 units PRBC 12/05/18. (3) Elevated troponin Assessment & Plan: See cardiology consult. (4) COPD (chronic obstructive pulmonary disease) (5) HTN (hypertension) Assessment & Plan: Currently on levophed (6) CHF (congestive heart failure) Assessment & Plan: LVEF=55-60% (7) Diabetes mellitus, type II (8) Chronic renal failure Assessment & Plan: See nephrology note. (9) Dysphagia (10) CAD (coronary artery disease) (11) Acute respiratory failure Assessment & Plan: Weaning protocol; Continue mech vent per pulm (12) Hypothyroidism Status: not improved Roni Carson MD Dec 12, 2018 12:50
--- NOTE | 2018-12-12 13:51 | Diagnostic Imaging Report ---
Indication: Dyspnea Comparison: 12/11/2018 A single view chest radiograph was obtained. Findings: Endotracheal tube is stable. Heart size is normal and stable. Patchy perihilar and basilar infiltrates again demonstrated. IMPRESSION: No change from one day earlier
--- NOTE | 2018-12-12 14:00 | NUR ---
NURSE NOTES: Patient turned and repositioned. No new orders at this time. Will continue to monitor patient.
--- NOTE | 2018-12-12 15:01 | Infectious Diseases Prog Note ---
Assessment/Plan Assessment/Plan Assessment: Severe Sepsis- likely 2ry to PNA, r/o bacteremia, UTI. Possible Flu despite neg screen test -CXR: Bilateral diffuse interstitial and airspace infiltrates versus edema, worsening on the right over one day -Bcx NTD -u/a wbc 40-60, nit neg, leuk large; ucx 10-20 k P. mirablis ESBL (S Meropenem, Zosyn) -sp cx p -influenza sc, legionela ag urine neg Fever, improving Leukocytosis stable Acute respiratory failure s/p intubation 12/04 ELICIA, improving COPD DM2 HTN dysphagia s/p G-tube dementia SNF resident Plan: - Continue Tigecycline #3/7 for Acinetobacter If leukocytosis not improving tomorrow will add colistin -12/10/18 IV Vancomycin #7 and Meropenem #6 for PNA and UTI -12/10 SP Tamiflu #6 -12/05 AMikacin and Ertapenem #2 -12/07/18 SP empiric Azithromycin #3 -f/u cx -Monitor CBC/CMP, temperatures -ICU, ETT care -aspiration precautions Thank you for this consultation. Will continue to follow along with you. Subjective Allergies: Coded Allergies: No Known Allergies (Unverified , 12/04/18) Subjective Still on Vent 30% O2 Afebrile Leukocytosis stable Objective Vital Signs Last 24 Hour Vital Signs Date Time Temp Pulse Resp B/P (MAP) Pulse Ox O2 Delivery O2 Flow Rate FiO2 12/12/18 13:57 131/68 12/12/18 12:00 95 12/12/18 11:00 85 15 128/80 (96) 100 12/12/18 10:39 102 27 30 12/12/18 10:00 80 17 120/72 (88) 100 12/12/18 09:05 164/68 12/12/18 09:00 78 16 125/70 (88) 100 12/12/18 08:55 90 19 30 12/12/18 08:16 99 12/12/18 08:15 30 12/12/18 08:00 99.0 88 16 164/68 (100) 100 12/12/18 08:00 30 12/12/18 08:00 Mechanical Ventilator 12/12/18 08:00 80 12/12/18 07:12 78 16 30 12/12/18 07:00 80 16 115/68 (84) 100 12/12/18 06:00 83 16 113/63 (80) 100 12/12/18 05:00 85 16 122/58 (79) 100 12/12/18 04:42 91 20 30 12/12/18 04:00 89 12/12/18 04:00 99.6 85 18 125/61 (82) 100 12/12/18 04:00 Mechanical Ventilator 12/12/18 04:00 30 12/12/18 03:28 90 16 30 12/12/18 03:00 90 18 114/53 (73) 100 12/12/18 02:00 88 16 109/74 (86) 100 12/12/18 01:30 84 16 30 12/12/18 01:00 84 16 104/64 (77) 100 12/12/18 00:00 Mechanical Ventilator 12/12/18 00:00 99.7 84 18 102/57 (72) 100 12/12/18 00:00 90 12/12/18 00:00 30 12/11/18 23:08 88 16 30 12/11/18 23:00 95 18 110/50 (70) 100 12/11/18 22:00 92 18 107/54 (71) 100 12/11/18 21:24 95 17 30 12/11/18 21:00 95 18 109/57 (74) 100 12/11/18 20:00 100.4 93 16 116/50 (72) 99 12/11/18 20:00 90 12/11/18 20:00 30 12/11/18 20:00 Mechanical Ventilator 12/11/18 19:30 91 16 30 12/11/18 19:00 96 18 120/65 (83) 99 12/11/18 18:21 133/78 12/11/18 18:00 96 18 109/57 (74) 99 12/11/18 18:00 88 18 133/78 (96) 100 12/11/18 17:00 80 18 120/82 (95) 100 12/11/18 16:58 98 17 30 12/11/18 16:00 Mechanical Ventilator 12/11/18 16:00 98.9 82 20 126/70 (88) 100 12/11/18 16:00 89 12/11/18 16:00 30 12/11/18 15:16 94 16 30 Height (Feet): 5 Height (Inches): 7.00 Weight (Pounds): 162 Objective Gen: NAD, Awake HEENT: NCAT, intubated Lungs: clear Heart: HR/BP stable Abdomen: soft, active bowel sounds Extremities: no C/C/E Microbiology Date/Time Source Procedure Growth Status 12/12/18 04:30 Stool Clostridium difficile Toxin Assay - Final Complete Laboratory Tests Test 12/12/18 04:30 12/12/18 08:00 White Blood Count 13.3 K/UL (4.8-10.8) H Red Blood Count 3.56 M/UL (4.70-6.10) L Hemoglobin 9.1 G/DL (14.2-18.0) L Hematocrit 28.9 % (42.0-52.0) L Mean Corpuscular Volume 81 FL (80-99) Mean Corpuscular Hemoglobin 25.6 PG (27.0-31.0) L Mean Corpuscular Hemoglobin Concent 31.6 G/DL (32.0-36.0) L Red Cell Distribution Width 18.0 % (11.6-14.8) H Platelet Count 442 K/UL (150-450) Mean Platelet Volume 6.9 FL (6.5-10.1) Neutrophils (%) (Auto) 71.0 % (45.0-75.0) Lymphocytes (%) (Auto) 18.9 % (20.0-45.0) L Monocytes (%) (Auto) 6.0 % (1.0-10.0) Eosinophils (%) (Auto) 3.2 % (0.0-3.0) H Basophils (%) (Auto) 0.9 % (0.0-2.0) Sodium Level 144 MMOL/L (136-145) Potassium Level 3.7 MMOL/L (3.5-5.1) Chloride Level 107 MMOL/L (98-107) Carbon Dioxide Level 31 MMOL/L (21-32) Anion Gap 6 mmol/L (5-15) Blood Urea Nitrogen 44 mg/dL (7-18) H Creatinine 1.1 MG/DL (0.55-1.30) Estimat Glomerular Filtration Rate mL/min (>60) Glucose Level 117 MG/DL (74-106) H Calcium Level 8.8 MG/DL (8.5-10.1) Phosphorus Level 5.2 MG/DL (2.5-4.9) H Magnesium Level 2.4 MG/DL (1.8-2.4) Total Bilirubin 0.5 MG/DL (0.2-1.0) Aspartate Amino Transf (AST/SGOT) 19 U/L (15-37) Alanine Aminotransferase (ALT/SGPT) 19 U/L (12-78) Alkaline Phosphatase 92 U/L (46-116) Total Protein 7.9 G/DL (6.4-8.2) Albumin 1.5 G/DL (3.4-5.0) L Globulin 6.4 g/dL Albumin/Globulin Ratio 0.2 (1.0-2.7) L Arterial Blood pH 7.522 (7.350-7.450) Arterial Blood Partial Pressure CO2 39.3 mmHg (35.0-45.0) Arterial Blood Partial Pressure O2 90.8 mmHg (75.0-100.0) Arterial Blood HCO3 31.5 mmol/L (22.0-26.0) H Arterial Blood Oxygen Saturation 96.6 % (95-100) Arterial Blood Base Excess 8.1 (-2-2) H Aroldo Test Positive Current Medications Medications (Trade) Dose Ordered Sig/Courtney Route PRN Reason Start Time Stop Time Status Last Admin Dose Admin Acetaminophen (Tylenol) 650 mg Q4H PRN ORAL fever 12/04/18 14:00 01/03/19 13:59 12/07/18 19:26 Furosemide (Lasix) 40 mg DAILY IV 12/06/18 18:00 01/05/19 17:59 12/12/18 09:05 Heparin Sodium (Porcine) (Heparin 5000 units/ml) 5,000 units EVERY 12 HOURS SUBQ 12/04/18 21:00 01/03/19 20:59 12/12/18 09:08 Levothyroxine Sodium (Synthroid) 25 mcg DAILY@0630 ORAL 12/09/18 06:30 01/08/19 06:29 12/12/18 06:31 Lisinopril (Zestril) 20 mg BID GT 12/08/18 18:00 01/07/19 08:59 12/12/18 09:05 Norepinephrine Bitartrate 4 mg/ Dextrose 254 ml @ 0 mls/hr Q24H IV 12/04/18 14:00 01/03/19 13:59 Pantoprazole (Protonix) 40 mg DAILY IVP 12/05/18 09:00 01/04/19 08:59 12/12/18 09:05 Tigecycline 50 mg/ Sodium Chloride 110 ml @ 220 mls/hr EVERY 12 HOURS IVPB 12/10/18 21:00 12/17/18 20:59 12/12/18 09:05 Rayo Bhatti MD Dec 12, 2018 15:01
--- NOTE | 2018-12-12 16:00 | NUR ---
NURSE NOTES: Patient turned and repositioned. No new orders at this time. Will continue plan of are.
--- NOTE | 2018-12-12 16:46 | Cardiac Electrophysiology PN ---
Assessment/Plan Assessment/Plan 1. Respiratory failure with elevated BNP. His echocardiogram showed ejection fraction of 55% to 60% with diastolic dysfunction. On Lasix 40 mg IV daily. 2. Pneumonia, respiratory failure on the ventilator as well as on broad- spectrum IV antibiotic per ID and Dr. Fritz. Still being weaned 3. Hypertension. DC iv Lasix and continue lisinopril 20 mg b.i.d. 4. Severe sepsis, likely due to pneumonia and bacteremia. 5. Diabetes 6. Dysphagia, status post PEG placement. 7. Azotemia DC Lasix DW RN Subjective Subjective In SR. In ICU on the vent in NAD. Alert and responsive Objective Last 24 Hour Vital Signs Date Time Temp Pulse Resp B/P (MAP) Pulse Ox O2 Delivery O2 Flow Rate FiO2 12/12/18 15:05 97 19 30 12/12/18 15:00 95 16 122/65 (84) 100 12/12/18 14:00 97 17 125/71 (89) 100 12/12/18 13:57 131/68 12/12/18 13:00 94 18 131/68 (89) 100 12/12/18 12:34 96 18 30 12/12/18 12:00 Mechanical Ventilator 12/12/18 12:00 95 12/12/18 12:00 99.0 82 16 135/66 (89) 100 12/12/18 12:00 30 12/12/18 11:00 85 15 128/80 (96) 100 12/12/18 10:40 30 12/12/18 10:39 102 27 30 12/12/18 10:00 80 17 120/72 (88) 100 12/12/18 09:05 164/68 12/12/18 09:00 78 16 125/70 (88) 100 12/12/18 08:55 90 19 30 12/12/18 08:16 99 12/12/18 08:15 30 12/12/18 08:00 99.0 88 16 164/68 (100) 100 12/12/18 08:00 30 12/12/18 08:00 Mechanical Ventilator 12/12/18 08:00 80 12/12/18 07:12 78 16 30 12/12/18 07:00 80 16 115/68 (84) 100 12/12/18 06:00 83 16 113/63 (80) 100 12/12/18 05:00 85 16 122/58 (79) 100 12/12/18 04:42 91 20 30 12/12/18 04:00 89 12/12/18 04:00 99.6 85 18 125/61 (82) 100 12/12/18 04:00 Mechanical Ventilator 12/12/18 04:00 30 12/12/18 03:28 90 16 30 12/12/18 03:00 90 18 114/53 (73) 100 12/12/18 02:00 88 16 109/74 (86) 100 12/12/18 01:30 84 16 30 12/12/18 01:00 84 16 104/64 (77) 100 12/12/18 00:00 Mechanical Ventilator 12/12/18 00:00 99.7 84 18 102/57 (72) 100 12/12/18 00:00 90 12/12/18 00:00 30 12/11/18 23:08 88 16 30 12/11/18 23:00 95 18 110/50 (70) 100 12/11/18 22:00 92 18 107/54 (71) 100 12/11/18 21:24 95 17 30 12/11/18 21:00 95 18 109/57 (74) 100 12/11/18 20:00 100.4 93 16 116/50 (72) 99 12/11/18 20:00 90 12/11/18 20:00 30 12/11/18 20:00 Mechanical Ventilator 12/11/18 19:30 91 16 30 12/11/18 19:00 96 18 120/65 (83) 99 12/11/18 18:21 133/78 12/11/18 18:00 96 18 109/57 (74) 99 12/11/18 18:00 88 18 133/78 (96) 100 12/11/18 17:00 80 18 120/82 (95) 100 12/11/18 16:58 98 17 30 Intake and Output 12/11/18 12/12/18 19:00 07:00 Intake Total 830 ml 860 ml Output Total 860 ml 670 ml Balance -30 ml 190 ml Free Water 90 ml IV Total 110 ml 110 ml Tube Feeding 720 ml 660 ml Output Urine Total 860 ml 670 ml # Bowel Movements 3 Laboratory Tests Test 12/12/18 04:30 12/12/18 08:00 White Blood Count 13.3 K/UL (4.8-10.8) H Red Blood Count 3.56 M/UL (4.70-6.10) L Hemoglobin 9.1 G/DL (14.2-18.0) L Hematocrit 28.9 % (42.0-52.0) L Mean Corpuscular Volume 81 FL (80-99) Mean Corpuscular Hemoglobin 25.6 PG (27.0-31.0) L Mean Corpuscular Hemoglobin Concent 31.6 G/DL (32.0-36.0) L Red Cell Distribution Width 18.0 % (11.6-14.8) H Platelet Count 442 K/UL (150-450) Mean Platelet Volume 6.9 FL (6.5-10.1) Neutrophils (%) (Auto) 71.0 % (45.0-75.0) Lymphocytes (%) (Auto) 18.9 % (20.0-45.0) L Monocytes (%) (Auto) 6.0 % (1.0-10.0) Eosinophils (%) (Auto) 3.2 % (0.0-3.0) H Basophils (%) (Auto) 0.9 % (0.0-2.0) Sodium Level 144 MMOL/L (136-145) Potassium Level 3.7 MMOL/L (3.5-5.1) Chloride Level 107 MMOL/L (98-107) Carbon Dioxide Level 31 MMOL/L (21-32) Anion Gap 6 mmol/L (5-15) Blood Urea Nitrogen 44 mg/dL (7-18) H Creatinine 1.1 MG/DL (0.55-1.30) Estimat Glomerular Filtration Rate mL/min (>60) Glucose Level 117 MG/DL (74-106) H Calcium Level 8.8 MG/DL (8.5-10.1) Phosphorus Level 5.2 MG/DL (2.5-4.9) H Magnesium Level 2.4 MG/DL (1.8-2.4) Total Bilirubin 0.5 MG/DL (0.2-1.0) Aspartate Amino Transf (AST/SGOT) 19 U/L (15-37) Alanine Aminotransferase (ALT/SGPT) 19 U/L (12-78) Alkaline Phosphatase 92 U/L (46-116) Total Protein 7.9 G/DL (6.4-8.2) Albumin 1.5 G/DL (3.4-5.0) L Globulin 6.4 g/dL Albumin/Globulin Ratio 0.2 (1.0-2.7) L Arterial Blood pH 7.522 (7.350-7.450) Arterial Blood Partial Pressure CO2 39.3 mmHg (35.0-45.0) Arterial Blood Partial Pressure O2 90.8 mmHg (75.0-100.0) Arterial Blood HCO3 31.5 mmol/L (22.0-26.0) H Arterial Blood Oxygen Saturation 96.6 % (95-100) Arterial Blood Base Excess 8.1 (-2-2) H [place] Test Positive Microbiology Date/Time Source Procedure Growth Status 12/12/18 04:30 Stool Clostridium difficile Toxin Assay - Final Complete Objective HEAD AND NECK: Orally intubated. LUNGS: Coarse rhonchi. CARDIOVASCULAR: Regular S1 and S2 and mildly tachycardic. ABDOMEN: Status post G-tube. EXTREMITIES: No pitting edema. Darrell Cevallos MD Dec 12, 2018 16:45
--- NOTE | 2018-12-12 18:00 | NUR ---
NURSE NOTES: Patient turned and repositioned. No new orders at this time. Will continue plan of care.
--- NOTE | 2018-12-12 18:52 | NUR ---
HAND-OFF: Report given to Semaj Cobos using sbar.
--- NOTE | 2018-12-12 18:55 | Cardiology Report ---
APPROVED REPORT EKG Measurement Heart [id number] Sinus tachycardia Marked ST abnormality, possible anterior subendocardial injury Abnormal ECG
--- NOTE | 2018-12-12 19:30 | NUR ---
NURSE NOTES:REceived ptr awake with good eye contact bilateral soft wrist restraint on for safety to avoid , pulling out ETT.Orally intubated on ac mode, suctioned whitish scretions moderate in amt,02 sat >95%. HOb kept elevated watch for any resp, distress, Andrade to gravity with moderate amt of yellowish colored urine. Flexiseal to gravity with brownish liquid stools coming out. Flexiseal has leak, cleaned up pt and reposition flexiseal.Rt foot and left hand iv patent to flushes. will continue to monitor.
--- NOTE | 2018-12-12 19:58 | NUR ---
CASE MANAGEMENT: REVIEW SI: PNA . SEPSIS . RESPIRATORY FAILURE ON THE VENTILATOR T 99.7 HR 102 RR 27 BP 102/57 SAT 100% MECH VENT FIO2 30 WBC 13.3 H/H 9.1/28.9 IS: TIGECYCLINE IV Q12HR PROTONIX IV QD LEVOPHED IV Q24HR ICU STATUS DCP: PATIENT IS FROM [facility]
--- NOTE | 2018-12-12 21:30 | NUR ---
NURSE NOTES: Rectal tube was leaking- cleaned up pt, complete bed changed was done.
--- NOTE | 2018-12-12 23:30 | NUR ---
NURSE NOTES:Suctioned tk whitish secretions, oral care done.
[2018-12-13] VITALS (22 sets, daily range): BP systolic 98–147; BP diastolic 55–77
--- NOTE | 2018-12-13 01:00 | NUR ---
NURSE NOTES:SR on the monitor. VSS. afebrile.
--- NOTE | 2018-12-13 03:00 | NUR ---
NURSE NOTES:Bilateral soft wrist restrained maintained for safety to avoid self extubation.
--- NOTE | 2018-12-13 05:00 | NUR ---
NURSE NOTES:Started NEw IV cath to left foot g18 with good blood return.
[2018-12-13 05:29] LABS: BASOPHILS % (AUTO) 0.6 % (0.0-2.0); EOSINOPHILS % (AUTO) 1.7 % (0.0-3.0); HEMATOCRIT 29.7 % (42.0-52.0); HEMOGLOBIN 9.4 G/DL (14.2-18.0); LYMPHOCYTES % (AUTO) 19.3 % (20.0-45.0); MEAN CORPUSCULAR VOLUME 81 FL (80-99); MONOCYTES % (AUTO) 4.6 % (1.0-10.0); NEUTROPHILS % (AUTO) 73.8 % (45.0-75.0); PLATELET COUNT 450 K/UL (150-450); RED BLOOD COUNT 3.66 M/UL (4.70-6.10); RED CELL DISTRIBUTION WIDTH 17.4 % (11.6-14.8); WHITE BLOOD COUNT 14.1 K/UL (4.8-10.8)
--- NOTE | 2018-12-13 06:00 | NUR ---
NURSE NOTES:No resp distress noted vss.
[2018-12-13 06:08] LABS: ALANINE AMINOTRANSFERASE 18 U/L (12-78); ALBUMIN 1.6 G/DL (3.4-5.0); ALBUMIN/GLOBULIN RATIO 0.2 (1.0-2.7); ALKALINE PHOSPHATASE 105 U/L (46-116); ANION GAP 8 mmol/L (5-15); ASPARTATE AMINO TRANSFERASE 18 U/L (15-37); BILIRUBIN,TOTAL 0.4 MG/DL (0.2-1.0); BLOOD UREA NITROGEN 47 mg/dL (7-18); CALCIUM 8.4 MG/DL (8.5-10.1); CARBON DIOXIDE 31 MMOL/L (21-32); CHLORIDE 108 MMOL/L (98-107); CREATININE 1.2 MG/DL (0.55-1.30); PHOSPHORUS 4.5 MG/DL (2.5-4.9); POTASSIUM 3.3 MMOL/L (3.5-5.1); SODIUM 147 MMOL/L (136-145)
[2018-12-13] MEDS: Levothyroxine 25mcg tab ORAL SCH (06:19)
--- NOTE | 2018-12-13 06:59 | NUR ---
RESPIRATORY NOTE: Patient received mechanically ventilated on Pb 840 with current ordered vent settings. Patient is orally intubated with ETT tube size 8.0 witg 23cm at the lip line. The ETT tube is secured with an anchor fast. There are bilateral coarse breath sounds present upon auscultation and moderate amount of thick clear/white secretions were suctioned via inline suction system without incident. There is an ambu bag available at the bedside and the vent is connected to a red outlet. Vent alarms are functional and audible. Will continue to monitor patient.
--- NOTE | 2018-12-13 07:34 | NUR ---
HAND-OFF: Report given to Dilma Woods using sbar.
--- NOTE | 2018-12-13 07:40 | NUR ---
NURSE NOTES: Patient received from DARIANA Cobos. Patient observed bedside to be awake and alert. When asked simple questions, patient responds with head nods. Patient opens eyes spontaneously, patient responds to stimuli and follows some commands however does appear confused at times and impulsive. While assessing, patient is seen to raise hand towards ETT. Patient does not appear in any acute distress and is free from facial grimacing. Patient has a low grade temp. Cooling measures have been instituted. Patient is being monitored on the meat scrubber. VS 137/64, HR 93, RR 17, SPO2 100%. Patient is SR. Patient is orally intubated with ETT 8.0 23 cm at the lip with vent settings AC 16, TV 600, FIO2 30%. Upon auscultation patient has rhonchi heard throughout. Oral care was performed. Patient has hypoactive belly sounds in all four quadrants. Patient has a GT with Jevity 1.2 running 60 ml running. Residual checked with none pulled. A 50 ml flush was given. Patient has a rectal tube draining brown liquid stool draining to gravity. Patient has Andrade catheter draining yellow urine to gravity. Patient has skin that is intact. Patient has LFoot 18G, RFoot 18G LH 24G. Patient is impulsive and has BL soft wrist restraints for safety. Pulses are palpable and skin is intact. Safety measures are in place with bed locked and in the lowest position with HOB elevated and call light within reach. Will continue to monitor and follow plan of care.
--- NOTE | 2018-12-13 08:41 | Infectious Diseases Prog Note ---
Assessment/Plan Assessment/Plan Assessment: Severe Sepsis- likely 2ry to PNA, r/o bacteremia, UTI. Possible Flu despite neg screen test -CXR: Bilateral diffuse interstitial and airspace infiltrates versus edema, worsening on the right over one day -Bcx NTD -u/a wbc 40-60, nit neg, leuk large; ucx 10-20 k P. mirablis ESBL (S Meropenem, Zosyn) -sp cx p -influenza sc, legionela ag urine neg Fever, improving Leukocytosis stable Acute respiratory failure s/p intubation 12/04 ELICIA, improving COPD DM2 HTN dysphagia s/p G-tube dementia SNF resident Plan: - Continue Tigecycline #4/7-10 for Acinetobacter Will add INH colistin -12/10/18 IV Vancomycin #7 and Meropenem #6 for PNA and UTI -12/10 SP Tamiflu #6 -12/05 AMikacin and Ertapenem #2 -12/07/18 SP empiric Azithromycin #3 -f/u cx -Monitor CBC/CMP, temperatures -ICU, ETT care -aspiration precautions Will continue to follow along with you. Subjective Allergies: Coded Allergies: No Known Allergies (Unverified , 12/04/18) Subjective Still on Vent 30% O2 Afebrile Continued Leukocytosis Objective Vital Signs Last 24 Hour Vital Signs Date Time Temp Pulse Resp B/P (MAP) Pulse Ox O2 Delivery O2 Flow Rate FiO2 12/13/18 07:00 92 17 133/66 (88) 100 12/13/18 06:53 93 16 30 12/13/18 06:00 94 17 98/55 (69) 100 12/13/18 05:05 98 16 30 12/13/18 05:00 98 19 132/70 (90) 100 12/13/18 04:00 99.0 101 19 136/71 (92) 100 12/13/18 04:00 Mechanical Ventilator 12/13/18 04:00 101 12/13/18 04:00 30 12/13/18 03:27 62 18 30 12/13/18 03:00 96 24 139/59 (85) 99 12/13/18 02:00 97 17 128/69 (88) 99 12/13/18 01:07 97 18 30 12/13/18 01:00 98 16 142/63 (89) 99 1/31/19 00:00 98.6 99 17 124/63 (83) 100 12/13/18 00:00 97 12/13/18 00:00 Mechanical Ventilator 12/13/18 00:00 30 12/12/18 23:00 97 16 121/70 (87) 100 12/12/18 22:44 98 18 30 12/12/18 22:00 98 16 134/69 (90) 100 12/12/18 21:00 99 16 129/63 (85) 100 12/12/18 21:00 101 19 30 12/12/18 20:00 Mechanical Ventilator 12/12/18 20:00 99 12/12/18 20:00 30 12/12/18 20:00 98.6 99 16 140/72 (94) 100 12/12/18 19:06 95 16 30 12/12/18 18:05 115/60 12/12/18 18:00 80 16 115/60 (78) 100 12/12/18 17:19 96 20 30 12/12/18 17:00 85 16 122/68 (86) 100 12/12/18 16:00 30 12/12/18 16:00 99.0 87 16 138/68 (91) 100 12/12/18 16:00 Mechanical Ventilator 12/12/18 16:00 97 12/12/18 15:05 97 19 30 12/12/18 15:00 95 16 122/65 (84) 100 12/12/18 14:00 97 17 125/71 (89) 100 12/12/18 13:57 131/68 12/12/18 13:00 94 18 131/68 (89) 100 12/12/18 12:34 96 18 30 12/12/18 12:00 Mechanical Ventilator 12/12/18 12:00 95 12/12/18 12:00 99.0 82 16 135/66 (89) 100 12/12/18 12:00 30 12/12/18 11:00 85 15 128/80 (96) 100 12/12/18 10:40 30 12/12/18 10:39 102 27 30 12/12/18 10:00 80 17 120/72 (88) 100 12/12/18 09:05 164/68 12/12/18 09:00 78 16 125/70 (88) 100 12/12/18 08:55 90 19 30 Height (Feet): 5 Height (Inches): 7.00 Weight (Pounds): 155 Objective Gen: NAD HEENT: NCAT, intubated Lungs: clear Heart: HR/BP stable Abdomen: soft, active bowel sounds Extremities: no C/C/E Microbiology Date/Time Source Procedure Growth Status 12/12/18 04:30 Stool Clostridium difficile Toxin Assay - Final Complete Laboratory Tests Test 12/13/18 04:30 12/13/18 08:06 White Blood Count 14.1 K/UL (4.8-10.8) H Red Blood Count 3.66 M/UL (4.70-6.10) L Hemoglobin 9.4 G/DL (14.2-18.0) L Hematocrit 29.7 % (42.0-52.0) L Mean Corpuscular Volume 81 FL (80-99) Mean Corpuscular Hemoglobin 25.6 PG (27.0-31.0) L Mean Corpuscular Hemoglobin Concent 31.4 G/DL (32.0-36.0) L Red Cell Distribution Width 17.4 % (11.6-14.8) H Platelet Count 450 K/UL (150-450) Mean Platelet Volume 7.3 FL (6.5-10.1) Neutrophils (%) (Auto) 73.8 % (45.0-75.0) Lymphocytes (%) (Auto) 19.3 % (20.0-45.0) L Monocytes (%) (Auto) 4.6 % (1.0-10.0) Eosinophils (%) (Auto) 1.7 % (0.0-3.0) Basophils (%) (Auto) 0.6 % (0.0-2.0) Sodium Level 147 MMOL/L (136-145) H Potassium Level 3.3 MMOL/L (3.5-5.1) L Chloride Level 108 MMOL/L (98-107) H Carbon Dioxide Level 31 MMOL/L (21-32) Anion Gap 8 mmol/L (5-15) Blood Urea Nitrogen 47 mg/dL (7-18) H Creatinine 1.2 MG/DL (0.55-1.30) Estimat Glomerular Filtration Rate mL/min (>60) Glucose Level 151 MG/DL (74-106) H Calcium Level 8.4 MG/DL (8.5-10.1) L Phosphorus Level 4.5 MG/DL (2.5-4.9) Magnesium Level 2.2 MG/DL (1.8-2.4) Total Bilirubin 0.4 MG/DL (0.2-1.0) Aspartate Amino Transf (AST/SGOT) 18 U/L (15-37) Alanine Aminotransferase (ALT/SGPT) 18 U/L (12-78) Alkaline Phosphatase 105 U/L (46-116) Total Protein 8.3 G/DL (6.4-8.2) H Albumin 1.6 G/DL (3.4-5.0) L Globulin 6.7 g/dL Albumin/Globulin Ratio 0.2 (1.0-2.7) L Arterial Blood pH 7.516 (7.350-7.450) Arterial Blood Partial Pressure CO2 34.7 mmHg (35.0-45.0) L Arterial Blood Partial Pressure O2 100.2 mmHg (75.0-100.0) H Arterial Blood HCO3 27.4 mmol/L (22.0-26.0) H Arterial Blood Oxygen Saturation 97.0 % (95-100) Arterial Blood Base Excess 4.5 (-2-2) H Aroldo Test Positive Current Medications Medications (Trade) Dose Ordered Sig/Courtney Route PRN Reason Start Time Stop Time Status Last Admin Dose Admin Acetaminophen (Tylenol) 650 mg Q4H PRN ORAL fever 12/04/18 14:00 01/03/19 13:59 12/07/18 19:26 Heparin Sodium (Porcine) (Heparin 5000 units/ml) 5,000 units EVERY 12 HOURS SUBQ 12/04/18 21:00 01/03/19 20:59 12/12/18 21:05 Levothyroxine Sodium (Synthroid) 25 mcg DAILY@0630 ORAL 12/09/18 06:30 01/08/19 06:29 12/13/18 06:19 Lisinopril (Zestril) 20 mg BID GT 12/08/18 18:00 01/07/19 08:59 12/12/18 18:05 Norepinephrine Bitartrate 4 mg/ Dextrose 254 ml @ 0 mls/hr Q24H IV 12/04/18 14:00 01/03/19 13:59 Pantoprazole (Protonix) 40 mg DAILY IVP 12/05/18 09:00 01/04/19 08:59 12/12/18 09:05 Tigecycline 50 mg/ Sodium Chloride 110 ml @ 220 mls/hr EVERY 12 HOURS IVPB 12/10/18 21:00 12/17/18 20:59 12/12/18 21:06 Rayo Bhatti MD Dec 13, 2018 08:41
--- NOTE | 2018-12-13 09:01 | Cardiology Progress Note ---
Assessment/Plan Status: stable Assessment/Plan Assessment/Plan Assessment/Plan 1. Respiratory failure with elevated BNP. His echocardiogram showed ejection fraction of 55% to 60% with diastolic dysfunction. 2. Pneumonia, respiratory failure on the ventilator as well as on broad- spectrum IV antibiotic per ID and Dr. Fritz. 3. Hypertension. continue lisinopril 20 mg b.i.d. 4. Severe sepsis, likely due to pneumonia and bacteremia. 5. Diabetes 6. Dysphagia, status post PEG placement. 7. Azotemia DC Lasix due to rising BUN, monitor I/O and renal function. replete electrolytes Subjective Cardiovascular: Reports: no symptoms Respiratory: Reports: no symptoms Gastrointestinal/Abdominal: Reports: no symptoms Genitourinary: Reports: no symptoms Subjective Coverage for [place] NO acute events, creatinin stable but BUN rising, lasix discontinued, WBC stable , no acute events, vent settings stable. Objective Last 24 Hour Vital Signs Date Time Temp Pulse Resp B/P (MAP) Pulse Ox O2 Delivery O2 Flow Rate FiO2 12/13/18 07:00 92 17 133/66 (88) 100 12/13/18 06:53 93 16 30 12/13/18 06:00 94 17 98/55 (69) 100 12/13/18 05:05 98 16 30 12/13/18 05:00 98 19 132/70 (90) 100 12/13/18 04:00 99.0 101 19 136/71 (92) 100 12/13/18 04:00 Mechanical Ventilator 12/13/18 04:00 101 12/13/18 04:00 30 12/13/18 03:27 62 18 30 12/13/18 03:00 96 24 139/59 (85) 99 12/13/18 02:00 97 17 128/69 (88) 99 12/13/18 01:07 97 18 30 12/13/18 01:00 98 16 142/63 (89) 99 12/13/18 00:00 98.6 99 17 124/63 (83) 100 12/13/18 00:00 97 12/13/18 00:00 Mechanical Ventilator 12/13/18 00:00 30 12/12/18 23:00 97 16 121/70 (87) 100 12/12/18 22:44 98 18 30 12/12/18 22:00 98 16 134/69 (90) 100 12/12/18 21:00 99 16 129/63 (85) 100 12/12/18 21:00 101 19 30 12/12/18 20:00 Mechanical Ventilator 12/12/18 20:00 99 12/12/18 20:00 30 12/12/18 20:00 98.6 99 16 140/72 (94) 100 12/12/18 19:06 95 16 30 12/12/18 18:05 115/60 12/12/18 18:00 80 16 115/60 (78) 100 12/12/18 17:19 96 20 30 12/12/18 17:00 85 16 122/68 (86) 100 12/12/18 16:00 30 12/12/18 16:00 99.0 87 16 138/68 (91) 100 12/12/18 16:00 Mechanical Ventilator 12/12/18 16:00 97 12/12/18 15:05 97 19 30 12/12/18 15:00 95 16 122/65 (84) 100 12/12/18 14:00 97 17 125/71 (89) 100 12/12/18 13:57 131/68 12/12/18 13:00 94 18 131/68 (89) 100 12/12/18 12:34 96 18 30 12/12/18 12:00 Mechanical Ventilator 12/12/18 12:00 95 12/12/18 12:00 99.0 82 16 135/66 (89) 100 12/12/18 12:00 30 12/12/18 11:00 85 15 128/80 (96) 100 12/12/18 10:40 30 12/12/18 10:39 102 27 30 12/12/18 10:00 80 17 120/72 (88) 100 12/12/18 09:05 164/68 12/12/18 09:00 78 16 125/70 (88) 100 General Appearance: no apparent distress, on vent EENT: PERRL/EOMI, normal ENT inspection, TMs normal, pharynx normal Neck: non-tender, normal alignment, supple, normal inspection, no JVD Rhythm: NSR Cardiovascular: normal peripheral pulses, normal rate, regular rhythm Respiratory/Chest: chest wall non-tender, crackles/rales Abdomen: normal bowel sounds, non tender, soft, no organomegaly, no mass Extremities: normal range of motion, non-tender, normal inspection, no calf tenderness, no swelling Neurologic: abnormal CN, motor weakness, sensory deficit Intake and Output 12/12/18 12/13/18 19:00 07:00 Intake Total 830 ml 810 ml Output Total 1020 ml 1025 ml Balance -190 ml -215 ml Free Water 90 ml IV Total 110 ml Tube Feeding 720 ml 720 ml Output Urine Total 820 ml 925 ml Stool Total 200 ml 100 ml Laboratory Tests Test 12/13/18 04:30 12/13/18 08:06 White Blood Count 14.1 K/UL (4.8-10.8) H Red Blood Count 3.66 M/UL (4.70-6.10) L Hemoglobin 9.4 G/DL (14.2-18.0) L Hematocrit 29.7 % (42.0-52.0) L Mean Corpuscular Volume 81 FL (80-99) Mean Corpuscular Hemoglobin 25.6 PG (27.0-31.0) L Mean Corpuscular Hemoglobin Concent 31.4 G/DL (32.0-36.0) L Red Cell Distribution Width 17.4 % (11.6-14.8) H Platelet Count 450 K/UL (150-450) Mean Platelet Volume 7.3 FL (6.5-10.1) Neutrophils (%) (Auto) 73.8 % (45.0-75.0) Lymphocytes (%) (Auto) 19.3 % (20.0-45.0) L Monocytes (%) (Auto) 4.6 % (1.0-10.0) Eosinophils (%) (Auto) 1.7 % (0.0-3.0) Basophils (%) (Auto) 0.6 % (0.0-2.0) Sodium Level 147 MMOL/L (136-145) H Potassium Level 3.3 MMOL/L (3.5-5.1) L Chloride Level 108 MMOL/L (98-107) H Carbon Dioxide Level 31 MMOL/L (21-32) Anion Gap 8 mmol/L (5-15) Blood Urea Nitrogen 47 mg/dL (7-18) H Creatinine 1.2 MG/DL (0.55-1.30) Estimat Glomerular Filtration Rate mL/min (>60) Glucose Level 151 MG/DL (74-106) H Calcium Level 8.4 MG/DL (8.5-10.1) L Phosphorus Level 4.5 MG/DL (2.5-4.9) Magnesium Level 2.2 MG/DL (1.8-2.4) Total Bilirubin 0.4 MG/DL (0.2-1.0) Aspartate Amino Transf (AST/SGOT) 18 U/L (15-37) Alanine Aminotransferase (ALT/SGPT) 18 U/L (12-78) Alkaline Phosphatase 105 U/L (46-116) Total Protein 8.3 G/DL (6.4-8.2) H Albumin 1.6 G/DL (3.4-5.0) L Globulin 6.7 g/dL Albumin/Globulin Ratio 0.2 (1.0-2.7) L Arterial Blood pH 7.516 (7.350-7.450) Arterial Blood Partial Pressure CO2 34.7 mmHg (35.0-45.0) L Arterial Blood Partial Pressure O2 100.2 mmHg (75.0-100.0) H Arterial Blood HCO3 27.4 mmol/L (22.0-26.0) H Arterial Blood Oxygen Saturation 97.0 % (95-100) Arterial Blood Base Excess 4.5 (-2-2) H Aroldo Test Positive Microbiology Date/Time Source Procedure Growth Status 12/12/18 04:30 Stool Clostridium difficile Toxin Assay - Final Complete Filsosejal,Rayo Preston MD Dec 13, 2018 09:01
--- NOTE | 2018-12-13 09:29 | NUR ---
RADIOLOGY DEPT CHEST X-RAY DONE.-P.DYE
[2018-12-13] MEDS: Lisinopril 10mg tab GT SCH (09:46)
[2018-12-13] MEDS: Tigecycline 50 MG in NS 110 ML IVPB SCH ×2 (09:46→21:20)
[2018-12-13] MEDS: Pantoprazole Inj IVP SCH (09:46)
[2018-12-13] MEDS ORDERED: Colistin for inhalation INH SCH (10:00)
--- NOTE | 2018-12-13 10:00 | NUR ---
NURSE NOTES: Patient repositioned, cleaned and linens partially changed. VSS and patient not in any acute distress. LH 24G was d/c'd because it was not longer patent. Will continue to monitor.
[2018-12-13] MEDS: Heparin 5000 units/ml inj SUBQ SCH ×2 (10:05→21:21)
--- NOTE | 2018-12-13 10:43 | Pulmonolgy Critical Care Note ---
Critical Care - Asmt/Plan Problems: (1) Acute respiratory failure (2) Septic shock (3) Feeding by G-tube (4) ATN (acute tubular necrosis) (5) Diabetes mellitus, type II (6) COPD (chronic obstructive pulmonary disease) (7) History of hypertension (8) Hypothyroidism Respiratory: monitor respiratory rate, adjust FIO2 Cardiac: continue to monitor HR/BP Renal: F/U I&O, keep IV fluid Infectious Disease: check cultures Gastrointestinal: continue feedings/current rate Endocrine: monitor blood sugar Hematologic: monitor H/H, transfuse if hgb<8.5 Neurologic: keep patient comfortable Prophylaxis: Protonix, Heparin Notes Reviewed: filling hauler, renal Discussed with: nurses, consultants, watch casercadd manager - Objective Last 24 Hour Vital Signs Date Time Temp Pulse Resp B/P (MAP) Pulse Ox O2 Delivery O2 Flow Rate FiO2 12/13/18 09:46 137/69 12/13/18 08:55 95 16 30 12/13/18 07:00 92 17 133/66 (88) 100 12/13/18 06:53 93 16 30 12/13/18 06:00 94 17 98/55 (69) 100 12/13/18 05:05 98 16 30 12/13/18 05:00 98 19 132/70 (90) 100 12/13/18 04:00 99.0 101 19 136/71 (92) 100 12/13/18 04:00 Mechanical Ventilator 12/13/18 04:00 101 12/13/18 04:00 30 12/13/18 03:27 62 18 30 12/13/18 03:00 96 24 139/59 (85) 99 12/13/18 02:00 97 17 128/69 (88) 99 12/13/18 01:07 97 18 30 12/13/18 01:00 98 16 142/63 (89) 99 12/13/18 00:00 98.6 99 17 124/63 (83) 100 12/13/18 00:00 97 12/13/18 00:00 Mechanical Ventilator 12/13/18 00:00 30 12/12/18 23:00 97 16 121/70 (87) 100 12/12/18 22:44 98 18 30 12/12/18 22:00 98 16 134/69 (90) 100 12/12/18 21:00 99 16 129/63 (85) 100 12/12/18 21:00 101 19 30 12/12/18 20:00 Mechanical Ventilator 12/12/18 20:00 99 12/12/18 20:00 30 12/12/18 20:00 98.6 99 16 140/72 (94) 100 12/12/18 19:06 95 16 30 12/12/18 18:05 115/60 12/12/18 18:00 80 16 115/60 (78) 100 12/12/18 17:19 96 20 30 12/12/18 17:00 85 16 122/68 (86) 100 12/12/18 16:00 30 12/12/18 16:00 99.0 87 16 138/68 (91) 100 12/12/18 16:00 Mechanical Ventilator 12/12/18 16:00 97 12/12/18 15:05 97 19 30 12/12/18 15:00 95 16 122/65 (84) 100 12/12/18 14:00 97 17 125/71 (89) 100 12/12/18 13:57 131/68 12/12/18 13:00 94 18 131/68 (89) 100 12/12/18 12:34 96 18 30 12/12/18 12:00 Mechanical Ventilator 12/12/18 12:00 95 12/12/18 12:00 99.0 82 16 135/66 (89) 100 12/12/18 12:00 30 12/12/18 11:00 85 15 128/80 (96) 100 Status: awake Condition: critical HEENT: atraumatic Neck: full ROM Lungs: clear Heart: HR/BP stable Abdomen: soft, feeding tube Extremities: edema Decubiti: location Micro: Microbiology Date/Time Source Procedure Growth Status 12/12/18 04:30 Stool Clostridium difficile Toxin Assay - Final Complete Accucheck: 101 Critical Care - Subjective ROS Limited/Unobtainable: Yes Condition: critical EKG Rhythm: Sinus Rhythm FI02: 30 Vent Support Breath Rate: 16 Vent Support Mode: AC Vent Tidal Volume: 600 Sputum Amount: Moderate PEEP: 0.0 PIP: 26 Fluids: d5 1/2 NS Tube Feeding Amount: 60 I&O: Intake and Output 12/12/18 12/13/18 19:00 07:00 Intake Total 830 ml 810 ml Output Total 1020 ml 1025 ml Balance -190 ml -215 ml Free Water 90 ml IV Total 110 ml Tube Feeding 720 ml 720 ml Output Urine Total 820 ml 925 ml Stool Total 200 ml 100 ml CXR: extensive infiltrate ET-Tube: 8.0 ET Position: 23 Labs: Laboratory Tests Test 12/13/18 04:30 12/13/18 08:06 White Blood Count 14.1 K/UL (4.8-10.8) H Red Blood Count 3.66 M/UL (4.70-6.10) L Hemoglobin 9.4 G/DL (14.2-18.0) L Hematocrit 29.7 % (42.0-52.0) L Mean Corpuscular Volume 81 FL (80-99) Mean Corpuscular Hemoglobin 25.6 PG (27.0-31.0) L Mean Corpuscular Hemoglobin Concent 31.4 G/DL (32.0-36.0) L Red Cell Distribution Width 17.4 % (11.6-14.8) H Platelet Count 450 K/UL (150-450) Mean Platelet Volume 7.3 FL (6.5-10.1) Neutrophils (%) (Auto) 73.8 % (45.0-75.0) Lymphocytes (%) (Auto) 19.3 % (20.0-45.0) L Monocytes (%) (Auto) 4.6 % (1.0-10.0) Eosinophils (%) (Auto) 1.7 % (0.0-3.0) Basophils (%) (Auto) 0.6 % (0.0-2.0) Sodium Level 147 MMOL/L (136-145) H Potassium Level 3.3 MMOL/L (3.5-5.1) L Chloride Level 108 MMOL/L (98-107) H Carbon Dioxide Level 31 MMOL/L (21-32) Anion Gap 8 mmol/L (5-15) Blood Urea Nitrogen 47 mg/dL (7-18) H Creatinine 1.2 MG/DL (0.55-1.30) Estimat Glomerular Filtration Rate mL/min (>60) Glucose Level 151 MG/DL (74-106) H Calcium Level 8.4 MG/DL (8.5-10.1) L Phosphorus Level 4.5 MG/DL (2.5-4.9) Magnesium Level 2.2 MG/DL (1.8-2.4) Total Bilirubin 0.4 MG/DL (0.2-1.0) Aspartate Amino Transf (AST/SGOT) 18 U/L (15-37) Alanine Aminotransferase (ALT/SGPT) 18 U/L (12-78) Alkaline Phosphatase 105 U/L (46-116) Total Protein 8.3 G/DL (6.4-8.2) H Albumin 1.6 G/DL (3.4-5.0) L Globulin 6.7 g/dL Albumin/Globulin Ratio 0.2 (1.0-2.7) L Arterial Blood pH 7.516 (7.350-7.450) Arterial Blood Partial Pressure CO2 34.7 mmHg (35.0-45.0) L Arterial Blood Partial Pressure O2 100.2 mmHg (75.0-100.0) H Arterial Blood HCO3 27.4 mmol/L (22.0-26.0) H Arterial Blood Oxygen Saturation 97.0 % (95-100) Arterial Blood Base Excess 4.5 (-2-2) H Aorldo Test Positive Isaiah Fritz MD Dec 13, 2018 10:43
[2018-12-13 11:11] LABS: CREATINE KINASE 55 U/L (26-308)
--- NOTE | 2018-12-13 12:02 | Diagnostic Imaging Report ---
Indication: Dyspnea Technique: One view of the chest Comparison: 12/12/2017 Findings: Bilateral) the left infiltrates and likely small right pleural effusion persists, unchanged. Stable satisfactory position of endotracheal tube Impression: Unchanged, over one day, findings as above.
--- NOTE | 2018-12-13 12:30 | NUR ---
NURSE NOTES: Patient continues to be awake and alert. Patient opens eyes spontaneously, tracks with eyes and responds with head nods. Patient appears confused at times and impulsive. Patient does not appear in any acute distress and is free from facial grimacing. Patient continues with a low grade temp of 99.0. Patient is being monitored on the front desk monitor. VSS. Patient is orally intubated with vent settings AC 16, TV 600, FIO2 30%. Oral care was performed. Patient has a GT with Jevity 1.2 running 60 ml running. Patient has a rectal tube draining brown liquid stool draining to gravity. Patient has Andrade catheter draining yellow urine to gravity. Patient is impulsive and has BL soft wrist restraints for safety. Pulses are palpable and skin is intact. Safety measures are in place with bed locked and in the lowest position with HOB elevated and call light within reach. Will continue to monitor and follow plan of care.
[2018-12-13] MEDS: D5 1/2NS w/KCl 20mEq 1,000 ML IV SCH ×2 (13:00→22:22)
--- NOTE | 2018-12-13 14:36 | NUR ---
NURSE NOTES: Patient cleaned due to rectal tube leaking. Patient was repositioned. VSS and patient is not in any acute distress.
[2018-12-13] MEDS ORDERED: Lidocaine 1% Plain 30 ml INJ PRN (15:30)
[2018-12-13] MEDS ORDERED: Heparin 2000 units/Ns 1000ml INJ PRN (15:30)
--- NOTE | 2018-12-13 18:53 | Internal Med Progress Note ---
Subjective Date of Service: Dec 13, 2018 Physician Name Roni Carson Attending Physician Isaiah Fritz MD Current Medications Medications (Trade) Dose Ordered Sig/Courtney Route PRN Reason Start Time Stop Time Status Last Admin Dose Admin Acetaminophen (Tylenol) 650 mg Q4H PRN ORAL fever 12/04/18 14:00 01/03/19 13:59 12/07/18 19:26 Chlorhexidine Gluconate (Amna-Hex 2%) 1 applic DAILY@2000 TOPIC 12/13/18 20:00 01/12/19 19:59 Dextrose/ Electrolytes 1,000 ml @ 100 mls/hr Q10H IV 12/13/18 12:00 01/12/19 11:59 12/13/18 13:00 Heparin Sodium (Porcine) (Heparin 5000 units/ml) 5,000 units EVERY 12 HOURS SUBQ 12/04/18 21:00 01/03/19 20:59 12/13/18 10:05 Heparin Sodium/ Sodium Chloride (Heparin 2000 units/Ns 1000ml premix) 2,000 unit ONCE PRN INJ PICC 12/13/18 15:30 12/13/18 23:59 Levothyroxine Sodium (Synthroid) 25 mcg DAILY@0630 ORAL 12/09/18 06:30 01/08/19 06:29 12/13/18 06:19 Lidocaine HCl (Xylocaine 1% 30ml) 30 ml ONCE PRN INJ PICC 12/13/18 15:30 12/13/18 23:59 Norepinephrine Bitartrate 4 mg/ Dextrose 254 ml @ 0 mls/hr Q24H IV 12/04/18 14:00 01/03/19 13:59 Pantoprazole (Protonix) 40 mg DAILY IVP 12/05/18 09:00 01/04/19 08:59 12/13/18 09:46 Tigecycline 50 mg/ Sodium Chloride 110 ml @ 220 mls/hr EVERY 12 HOURS IVPB 12/10/18 21:00 12/17/18 20:59 12/13/18 09:46 Allergies: Coded Allergies: No Known Allergies (Unverified , 12/04/18) ROS Limited/Unobtainable: Yes Subjective 73 YO M admitted with respiratory failure. Now pneumonia. Intubated and sedated. ICU. Cover for Int Garret-Dr Matthews Objective Last Vital Signs Date Time Temp Pulse Resp B/P (MAP) Pulse Ox O2 Delivery O2 Flow Rate FiO2 12/13/18 17:06 93 17 30 12/13/18 17:00 142/68 (92) 99 12/13/18 16:00 Mechanical Ventilator 12/13/18 16:00 98.9 12/04/18 16:00 4.0 Laboratory Tests Test 12/13/18 04:30 12/13/18 08:06 White Blood Count 14.1 K/UL (4.8-10.8) H Red Blood Count 3.66 M/UL (4.70-6.10) L Hemoglobin 9.4 G/DL (14.2-18.0) L Hematocrit 29.7 % (42.0-52.0) L Mean Corpuscular Volume 81 FL (80-99) Mean Corpuscular Hemoglobin 25.6 PG (27.0-31.0) L Mean Corpuscular Hemoglobin Concent 31.4 G/DL (32.0-36.0) L Red Cell Distribution Width 17.4 % (11.6-14.8) H Platelet Count 450 K/UL (150-450) Mean Platelet Volume 7.3 FL (6.5-10.1) Neutrophils (%) (Auto) 73.8 % (45.0-75.0) Lymphocytes (%) (Auto) 19.3 % (20.0-45.0) L Monocytes (%) (Auto) 4.6 % (1.0-10.0) Eosinophils (%) (Auto) 1.7 % (0.0-3.0) Basophils (%) (Auto) 0.6 % (0.0-2.0) Sodium Level 147 MMOL/L (136-145) H Potassium Level 3.3 MMOL/L (3.5-5.1) L Chloride Level 108 MMOL/L (98-107) H Carbon Dioxide Level 31 MMOL/L (21-32) Anion Gap 8 mmol/L (5-15) Blood Urea Nitrogen 47 mg/dL (7-18) H Creatinine 1.2 MG/DL (0.55-1.30) Estimat Glomerular Filtration Rate mL/min (>60) Glucose Level 151 MG/DL (74-106) H Uric Acid 9.6 MG/DL (2.6-7.2) H Calcium Level 8.4 MG/DL (8.5-10.1) L Phosphorus Level 4.5 MG/DL (2.5-4.9) Magnesium Level 2.2 MG/DL (1.8-2.4) Total Bilirubin 0.4 MG/DL (0.2-1.0) Aspartate Amino Transf (AST/SGOT) 18 U/L (15-37) Alanine Aminotransferase (ALT/SGPT) 18 U/L (12-78) Alkaline Phosphatase 105 U/L (46-116) Total Creatine Kinase 55 U/L (26-308) Total Protein 8.3 G/DL (6.4-8.2) H Albumin 1.6 G/DL (3.4-5.0) L Globulin 6.7 g/dL Albumin/Globulin Ratio 0.2 (1.0-2.7) L Arterial Blood pH 7.516 (7.350-7.450) Arterial Blood Partial Pressure CO2 34.7 mmHg (35.0-45.0) L Arterial Blood Partial Pressure O2 100.2 mmHg (75.0-100.0) H Arterial Blood HCO3 27.4 mmol/L (22.0-26.0) H Arterial Blood Oxygen Saturation 97.0 % (95-100) Arterial Blood Base Excess 4.5 (-2-2) H Aroldo Test Positive Microbiology Date/Time Source Procedure Growth Status 12/12/18 04:30 Stool Clostridium difficile Toxin Assay - Final Complete Intake and Output 12/12/18 12/13/18 19:00 07:00 Intake Total 830 ml 810 ml Output Total 1020 ml 1025 ml Balance -190 ml -215 ml Free Water 90 ml IV Total 110 ml Tube Feeding 720 ml 720 ml Output Urine Total 820 ml 925 ml Stool Total 200 ml 100 ml Objective General Appearance: WD/WN, no apparent distress, lethargic EENT: PERRL/EOMI, normal ENT inspection Neck: non-tender, normal alignment, supple, normal inspection Cardiovascular: normal peripheral pulses, normal rate, regular rhythm, no gallop/murmur, no JVD Respiratory/Chest: Mech vent; chest wall non-tender, respiratory distress, crackles/rales, rhonchi - bilaterally, expiratory wheezing Abdomen: normal bowel sounds, non tender, soft, no organomegaly, no mass Extremities: normal range of motion, non-tender Skin: normal pigmentation, warm/dry Assessment/Plan Problem List: (1) Pneumonia Assessment & Plan: See ID note. Continue tegacycline (2) Anemia Assessment & Plan: S/P tansfusion 2 units PRBC 12/05/18. (3) Elevated troponin Assessment & Plan: See cardiology consult. (4) COPD (chronic obstructive pulmonary disease) (5) HTN (hypertension) Assessment & Plan: Currently on levophed (6) CHF (congestive heart failure) Assessment & Plan: LVEF=55-60% (7) Diabetes mellitus, type II (8) Chronic renal failure Assessment & Plan: See nephrology note. (9) Dysphagia (10) CAD (coronary artery disease) (11) Acute respiratory failure Assessment & Plan: Weaning protocol; Continue mech vent per pulm (12) Hypothyroidism Status: not improved Roni Carson MD Dec 13, 2018 18:53
--- NOTE | 2018-12-13 19:30 | NUR ---
NURSE NOTES:Received pt awake , watching tv, at this time SR on the monitor bp stable, afebrile, rectal tube was leaking , cleaned up pt and re inflate balloon.
[2018-12-13] MEDS: Dyna-Hex 2% Top Sol 2oz TOPIC SCH (20:00)
--- NOTE | 2018-12-13 20:00 | NUR ---
NURSE NOTES:Suctioned tk whitish secretions lg in amt 02 sat 100%. watch for any resp. distress.
--- NOTE | 2018-12-13 22:00 | NUR ---
NURSE NOTES:Soft wrist restraints maintained for safety to avoid self extubation.
[2018-12-14] VITALS (27 sets, daily range): BP systolic 114–171; BP diastolic 7–143
--- NOTE | 2018-12-14 | NUR ---
NURSE NOTES:Sleeping well at this time with vss.
--- NOTE | 2018-12-14 02:00 | NUR ---
NURSE NOTES: Condition unchanged. Sleeping well at this time.
--- NOTE | 2018-12-14 04:09 | NUR ---
NURSE NOTES:complete bath with bed changed was done, pt tolerating fdg.
[2018-12-14 05:47] LABS: BASOPHILS % (AUTO) 0.4 % (0.0-2.0); EOSINOPHILS % (AUTO) 2.9 % (0.0-3.0); HEMATOCRIT 26.8 % (42.0-52.0); HEMOGLOBIN 8.3 G/DL (14.2-18.0); LYMPHOCYTES % (AUTO) 20.1 % (20.0-45.0); MEAN CORPUSCULAR VOLUME 82 FL (80-99); MONOCYTES % (AUTO) 3.4 % (1.0-10.0); NEUTROPHILS % (AUTO) 73.2 % (45.0-75.0); PLATELET COUNT 342 K/UL (150-450); RED BLOOD COUNT 3.27 M/UL (4.70-6.10); RED CELL DISTRIBUTION WIDTH 18.3 % (11.6-14.8); WHITE BLOOD COUNT 12.1 K/UL (4.8-10.8)
[2018-12-14 05:59] LABS: INR 1.4 (0.9-1.1)
--- NOTE | 2018-12-14 06:00 | NUR ---
NURSE NOTES: Needs frequent suctioning . No resp distress noted.vss
[2018-12-14 06:10] LABS: ALANINE AMINOTRANSFERASE 21 U/L (12-78); ALBUMIN 1.4 G/DL (3.4-5.0); ALBUMIN/GLOBULIN RATIO 0.2 (1.0-2.7); ALKALINE PHOSPHATASE 101 U/L (46-116); ANION GAP 10 mmol/L (5-15); ASPARTATE AMINO TRANSFERASE 19 U/L (15-37); BILIRUBIN,TOTAL 0.6 MG/DL (0.2-1.0); BLOOD UREA NITROGEN 41 mg/dL (7-18); CALCIUM 8.5 MG/DL (8.5-10.1); CARBON DIOXIDE 28 MMOL/L (21-32); CHLORIDE 111 MMOL/L (98-107); CREATININE 1.1 MG/DL (0.55-1.30); PHOSPHORUS 3.5 MG/DL (2.5-4.9); POTASSIUM 3.5 MMOL/L (3.5-5.1); SODIUM 148 MMOL/L (136-145)
[2018-12-14] MEDS: Levothyroxine 25mcg tab ORAL SCH (06:17)
[2018-12-14 06:23] LABS: LACTATE DEHYDROGENASE 141 U/L (81-234)
[2018-12-14 06:25] LABS: % IRON SATURATION 58 % (15-50); IRON 37 ug/dL (50-175); TOTAL IRON BINDING CAPACITY 64 ug/dL (250-450)
--- NOTE | 2018-12-14 07:00 | NUR ---
Received Patient on Vent ACVC VT 600, RR 16, FIO2 30%, PEEP +0. Patient is intubated with 8.0 tube at 23 cm lip line, secured with anchor fast. Breath sounds reveal bilateral rhonchi. Suction thick white/ shah secretions PRN. Vent plugged into red outlet. Alarms are on and audible. Will continue to monitor throughout the day.
[2018-12-14 07:25] LABS: APPEARANCE,URINE CLEAR; BILIRUBIN, URINE NEGATIVE (NEGATIVE); GLUCOSE, URINE (UA) NEGATIVE (NEGATIVE); KETONES,URINE NEGATIVE (NEGATIVE); LEUKOCYTE ESTERASE ,URINE 1+ (NEGATIVE); NITRITE,URINE NEGATIVE (NEGATIVE); PH,URINE 6.5 (4.5-8.0); PROTEIN,URINE 1+ (NEGATIVE); UROBILINOGEN,URINE NORMAL MG/DL (0.0-1.0)
[2018-12-14 07:29] LABS: COLOR,URINE YELLOW
--- NOTE | 2018-12-14 07:33 | NUR ---
HAND-OFF: Report given to Austin Woods using sbar.
--- NOTE | 2018-12-14 08:00 | NUR ---
NURSE NOTES: Received patient from DARIANA Cobos. Patient awake and alert, follows commands, responds by nodding. Orally intubated ETT size 8.0, 23cm at lip line, vent settings: AC 16, TV 600, Fio2 100%, PEEP 0, saturating 100%. No acute distress noted. SR noted on the cardiac tech. G-tube intact, pt on Jevity 1.2 at 60ml/hr, no residual noted. HOB elevated. Rectal tube draining brown liquid stool draining to gravity. Andrade catheter intact and draining yellow urine to gravity. Left Foot 18G, Right Foot 22G IV lines intact and patent, running D51/2NS with KCl 20meq at 100ml/hr. Patient on bilateral soft wrist restraints for safety, skin is intact. Bed in lowest position, locked. Bed alarm on. Call light within reach. Will continue to monitor.
--- NOTE | 2018-12-14 08:39 | NUR ---
Weaning started. PT placed on Spontaneous Breathing PS +8 PEEP +0 FIO2 30%. Patient tolerating well will continue to monitor.
[2018-12-14] MEDS: Tigecycline 50 MG in NS 110 ML IVPB SCH ×2 (08:53→20:56)
[2018-12-14] MEDS: D5 1/2NS w/KCl 20mEq 1,000 ML IV SCH ×2 (08:53→18:57)
[2018-12-14] MEDS: Pantoprazole Inj IVP SCH (08:54)
[2018-12-14] MEDS: Heparin 5000 units/ml inj SUBQ SCH ×2 (08:55→20:57)
--- NOTE | 2018-12-14 09:46 | Infectious Diseases Prog Note ---
Assessment/Plan Assessment/Plan Assessment: Severe Sepsis- likely 2ry to PNA, r/o bacteremia, UTI. Possible Flu despite neg screen test -CXR: Bilateral diffuse interstitial and airspace infiltrates versus edema, worsening on the right over one day -Bcx NTD -u/a wbc 40-60, nit neg, leuk large; ucx 10-20 k P. mirablis ESBL (S Meropenem, Zosyn) -sp cx p -influenza sc, legionela ag urine neg Fever, improving Leukocytosis stable Acute respiratory failure s/p intubation 12/04 ELICIA, improving COPD DM2 HTN dysphagia s/p G-tube dementia SNF resident Plan: - Continue Tigecycline #5/7-10 for Acinetobacter - INH colistin #1 D/C 12/13/18 -12/10/18 IV Vancomycin #7 and Meropenem #6 for PNA and UTI -12/10 SP Tamiflu #6 -12/05 AMikacin and Ertapenem #2 -12/07/18 SP empiric Azithromycin #3 -f/u cx -Monitor CBC/CMP, temperatures -ICU, ETT care -aspiration precautions Will continue to follow along with you. Subjective Allergies: Coded Allergies: No Known Allergies (Unverified , 12/04/18) Subjective Still on Vent 30% O2 Afebrile Continued Leukocytosis but improved today Objective Vital Signs Last 24 Hour Vital Signs Date Time Temp Pulse Resp B/P (MAP) Pulse Ox O2 Delivery O2 Flow Rate FiO2 12/14/18 09:00 81 20 138/68 (91) 100 12/14/18 08:42 100 12/14/18 08:39 78 18 30 12/14/18 08:00 98.0 72 18 129/67 (87) 100 12/14/18 08:00 76 12/14/18 08:00 Mechanical Ventilator 12/14/18 08:00 30 12/14/18 07:16 70 16 30 12/14/18 07:00 70 18 122/66 (84) 100 12/14/18 06:00 76 18 123/63 (83) 100 12/14/18 05:30 78 16 30 12/14/18 05:00 83 18 152/70 (97) 100 12/14/18 04:00 98.0 70 16 130/70 (90) 100 12/14/18 04:00 Mechanical Ventilator 12/14/18 04:00 79 12/14/18 04:00 30 12/14/18 03:23 77 16 30 12/14/18 03:00 79 16 135/70 (91) 100 12/14/18 02:00 78 16 114/74 (87) 100 12/14/18 01:09 79 16 30 12/14/18 01:00 79 16 118/79 (92) 100 12/14/18 00:00 78 12/14/18 00:00 Mechanical Ventilator 12/14/18 00:00 98.8 81 16 145/75 (98) 100 12/14/18 00:00 30 12/13/18 23:26 80 16 30 12/13/18 23:00 81 16 147/75 (99) 100 12/13/18 22:00 83 16 134/63 (86) 100 12/13/18 21:08 91 18 30 12/13/18 21:00 87 16 138/70 (92) 100 12/13/18 20:00 Mechanical Ventilator 12/13/18 20:00 98.6 84 16 128/74 (92) 100 12/13/18 19:30 90 18 30 12/13/18 17:06 93 17 30 12/13/18 17:00 86 16 142/68 (92) 99 12/13/18 16:00 Mechanical Ventilator 12/13/18 16:00 92 12/13/18 16:00 30 12/13/18 16:00 98.9 89 16 117/64 (81) 99 12/13/18 15:21 92 16 30 12/13/18 15:00 91 18 129/68 (88) 99 12/13/18 14:00 98 18 137/70 (92) 99 12/13/18 13:34 98 16 30 12/13/18 13:00 97 18 142/70 (94) 99 12/13/18 12:00 97 12/13/18 12:00 Mechanical Ventilator 12/13/18 12:00 99.0 95 18 137/69 (91) 100 12/13/18 12:00 30 12/13/18 11:00 96 18 129/63 (85) 99 12/13/18 10:43 96 18 30 12/13/18 10:00 96 18 121/63 (82) 100 12/13/18 09:46 137/69 Height (Feet): 5 Height (Inches): 7.00 Weight (Pounds): 157 Objective Gen: NAD awake HEENT: NCAT, intubated Lungs: clear Heart: HR/BP stable Abdomen: soft, active bowel sounds Extremities: no C/C/E Microbiology Date/Time Source Procedure Growth Status 12/12/18 04:30 Stool Clostridium difficile Toxin Assay - Final Complete Laboratory Tests Test 12/14/18 04:20 12/14/18 07:00 12/14/18 09:35 White Blood Count 12.1 K/UL (4.8-10.8) H Red Blood Count 3.27 M/UL (4.70-6.10) L Hemoglobin 8.3 G/DL (14.2-18.0) L Hematocrit 26.8 % (42.0-52.0) L Mean Corpuscular Volume 82 FL (80-99) Mean Corpuscular Hemoglobin 25.4 PG (27.0-31.0) L Mean Corpuscular Hemoglobin Concent 31.1 G/DL (32.0-36.0) L Red Cell Distribution Width 18.3 % (11.6-14.8) H Platelet Count 342 K/UL (150-450) Mean Platelet Volume 8.0 FL (6.5-10.1) Neutrophils (%) (Auto) 73.2 % (45.0-75.0) Lymphocytes (%) (Auto) 20.1 % (20.0-45.0) Monocytes (%) (Auto) 3.4 % (1.0-10.0) Eosinophils (%) (Auto) 2.9 % (0.0-3.0) Basophils (%) (Auto) 0.4 % (0.0-2.0) Differential Total Cells Counted 100 Neutrophils % (Manual) 75 % (45-75) Lymphocytes % (Manual) 19 % (20-45) L Monocytes % (Manual) 4 % (1-10) Eosinophils % (Manual) 1 % (0-3) Basophils % (Manual) 0 % (0-2) Band Neutrophils 1 % (0-8) Platelet Estimate Adequate Platelet Morphology Normal Anisocytosis 2+ Erythrocyte Sedimentation Rate 122 MM/HR (0-20) H Reticulocyte Count Pending Prothrombin Time 14.2 SEC (9.30-11.50) H Prothromb Time International Ratio 1.4 (0.9-1.1) H Activated Partial Thromboplast Time 36 SEC (23-33) H Sodium Level 148 MMOL/L (136-145) H Potassium Level 3.5 MMOL/L (3.5-5.1) Chloride Level 111 MMOL/L (98-107) H Carbon Dioxide Level 28 MMOL/L (21-32) Anion Gap 10 mmol/L (5-15) Blood Urea Nitrogen 41 mg/dL (7-18) H Creatinine 1.1 MG/DL (0.55-1.30) Estimat Glomerular Filtration Rate mL/min (>60) Glucose Level 159 MG/DL (74-106) H Calcium Level 8.5 MG/DL (8.5-10.1) Phosphorus Level 3.5 MG/DL (2.5-4.9) Magnesium Level 2.0 MG/DL (1.8-2.4) Iron Level 37 ug/dL (50-175) L Total Iron Binding Capacity 64 ug/dL (250-450) L Percent Iron Saturation 58 % (15-50) H Unsaturated Iron Binding 27 ug/dL (112-346) L Total Bilirubin 0.6 MG/DL (0.2-1.0) Aspartate Amino Transf (AST/SGOT) 19 U/L (15-37) Alanine Aminotransferase (ALT/SGPT) 21 U/L (12-78) Alkaline Phosphatase 101 U/L (46-116) Lactate Dehydrogenase 141 U/L (81-234) C-Reactive Protein, Quantitative 18.1 mg/dL (0.00-0.90) H Total Protein 7.6 G/DL (6.4-8.2) Albumin 1.4 G/DL (3.4-5.0) L Globulin 6.2 g/dL Albumin/Globulin Ratio 0.2 (1.0-2.7) L Carcinoembryonic Antigen Pending Vitamin B12 Level 845 PG/ML (193-986) Folate 28.5 NG/ML (8.6-58.9) Urine Color Yellow Urine Appearance Clear Urine pH 6.5 (4.5-8.0) Urine Specific [place] 1.010 (1.005-1.035) Urine Protein 1+ (NEGATIVE) H Urine Glucose (UA) Negative (NEGATIVE) Urine Ketones Negative (NEGATIVE) Urine Blood 2+ (NEGATIVE) H Urine Nitrite Negative (NEGATIVE) Urine Bilirubin Negative (NEGATIVE) Urine Urobilinogen Normal MG/DL (0.0-1.0) Urine Leukocyte Esterase 1+ (NEGATIVE) H Urine RBC 2-4 /HPF (0 - 0) H Urine WBC 0-2 /HPF (0 - 0) Urine Squamous Epithelial Cells Occasional /LPF Urine Bacteria Occasional /HPF (NONE) Urine Eosinophils Moderate (NONE SEEN) Urine Random Sodium 56 mmol/L (20-110) Urine Potassium Timed 19 mmol/L (12-62) Arterial Blood pH 7.440 (7.350-7.450) Arterial Blood Partial Pressure CO2 40.7 mmHg (35.0-45.0) Arterial Blood Partial Pressure O2 116.0 mmHg (75.0-100.0) H Arterial Blood HCO3 27.0 mmol/L (22.0-26.0) H Arterial Blood Oxygen Saturation 97.7 % (95-100) Arterial Blood Base Excess 2.7 (-2-2) H Aroldo Test Positive Current Medications Medications (Trade) Dose Ordered Sig/Courtney Route PRN Reason Start Time Stop Time Status Last Admin Dose Admin Acetaminophen (Tylenol) 650 mg Q4H PRN ORAL fever 12/04/18 14:00 01/03/19 13:59 12/07/18 19:26 Chlorhexidine Gluconate (Amna-Hex 2%) 1 applic DAILY@2000 TOPIC 12/13/18 20:00 01/12/19 19:59 Dextrose/ Electrolytes 1,000 ml @ 100 mls/hr Q10H IV 12/13/18 12:00 01/12/19 11:59 12/14/18 08:53 Heparin Sodium (Porcine) (Heparin 5000 units/ml) 5,000 units EVERY 12 HOURS SUBQ 12/04/18 21:00 01/03/19 20:59 12/14/18 08:55 Levothyroxine Sodium (Synthroid) 25 mcg DAILY@0630 ORAL 12/09/18 06:30 01/08/19 06:29 12/14/18 06:17 Norepinephrine Bitartrate 4 mg/ Dextrose 254 ml @ 0 mls/hr Q24H IV 12/04/18 14:00 01/03/19 13:59 Pantoprazole (Protonix) 40 mg DAILY IVP 12/05/18 09:00 01/04/19 08:59 12/14/18 08:54 Tigecycline 50 mg/ Sodium Chloride 110 ml @ 220 mls/hr EVERY 12 HOURS IVPB 12/10/18 21:00 12/17/18 20:59 12/14/18 08:53 Rayo Bhatti MD Dec 14, 2018 09:46
--- NOTE | 2018-12-14 09:53 | NUR ---
RADIOLOGY DEPT CHEST X-RAY DONE.-P.DYE
[2018-12-14] MEDS ORDERED: Heparin 2000 units/Ns 1000ml INJ PRN (10:00)
[2018-12-14] MEDS ORDERED: Lidocaine 1% Plain 30 ml INJ PRN (10:00)
--- NOTE | 2018-12-14 10:00 | NUR ---
NURSE NOTES: Patient was turned and repositioned. VSS. yeung, rectal tube and oral care provided.
--- NOTE | 2018-12-14 10:17 | Cardiology Progress Note ---
Assessment/Plan Status: stable Assessment/Plan Assessment/Plan Assessment/Plan 1. Respiratory failure with elevated BNP. His echocardiogram showed ejection fraction of 55% to 60% with diastolic dysfunction. 2. Pneumonia, respiratory failure on the ventilator as well as on broad- spectrum IV antibiotic, CXR with continued right sided infiltrate 3. Hypertension. continue lisinopril 20 mg b.i.d. 4. Severe sepsis, likely due to pneumonia and bacteremia. Continue abx per ID 5. Diabetes 6. Dysphagia, status post PEG placement, tolerating feeds, no residuals 7. Azotemia - DC Lasix due to rising BUN, monitor I/O and renal function. replete electrolytes Subjective Cardiovascular: Reports: no symptoms Respiratory: Reports: no symptoms Gastrointestinal/Abdominal: Reports: no symptoms Genitourinary: Reports: no symptoms Subjective Coverage for [place] No acute eventss, CXR with no improvement, continues on vent, no distress, tolerating Feeds. no fevers, WBC stable, Hypernatremic Objective Last 24 Hour Vital Signs Date Time Temp Pulse Resp B/P (MAP) Pulse Ox O2 Delivery O2 Flow Rate FiO2 12/14/18 09:00 81 20 138/68 (91) 100 12/14/18 08:42 100 12/14/18 08:39 78 18 30 12/14/18 08:00 98.0 72 18 129/67 (87) 100 12/14/18 08:00 76 12/14/18 08:00 Mechanical Ventilator 12/14/18 08:00 30 12/14/18 07:16 70 16 30 12/14/18 07:00 70 18 122/66 (84) 100 12/14/18 06:00 76 18 123/63 (83) 100 12/14/18 05:30 78 16 30 12/14/18 05:00 83 18 152/70 (97) 100 12/14/18 04:00 98.0 70 16 130/70 (90) 100 12/14/18 04:00 Mechanical Ventilator 12/14/18 04:00 79 12/14/18 04:00 30 12/14/18 03:23 77 16 30 12/14/18 03:00 79 16 135/70 (91) 100 12/14/18 02:00 78 16 114/74 (87) 100 12/14/18 01:09 79 16 30 12/14/18 01:00 79 16 118/79 (92) 100 12/14/18 00:00 78 12/14/18 00:00 Mechanical Ventilator 12/14/18 00:00 98.8 81 16 145/75 (98) 100 12/14/18 00:00 30 12/13/18 23:26 80 16 30 12/13/18 23:00 81 16 147/75 (99) 100 12/13/18 22:00 83 16 134/63 (86) 100 12/13/18 21:08 91 18 30 12/13/18 21:00 87 16 138/70 (92) 100 12/13/18 20:00 Mechanical Ventilator 12/13/18 20:00 98.6 84 16 128/74 (92) 100 12/13/18 19:30 90 18 30 12/13/18 17:06 93 17 30 12/13/18 17:00 86 16 142/68 (92) 99 12/13/18 16:00 Mechanical Ventilator 12/13/18 16:00 92 12/13/18 16:00 30 12/13/18 16:00 98.9 89 16 117/64 (81) 99 12/13/18 15:21 92 16 30 12/13/18 15:00 91 18 129/68 (88) 99 12/13/18 14:00 98 18 137/70 (92) 99 12/13/18 13:34 98 16 30 12/13/18 13:00 97 18 142/70 (94) 99 12/13/18 12:00 97 12/13/18 12:00 Mechanical Ventilator 12/13/18 12:00 99.0 95 18 137/69 (91) 100 12/13/18 12:00 30 12/13/18 11:00 96 18 129/63 (85) 99 12/13/18 10:43 96 18 30 General Appearance: no apparent distress, on vent EENT: PERRL/EOMI, normal ENT inspection, TMs normal Neck: non-tender, normal alignment, supple, normal inspection, no JVD Rhythm: NSR Cardiovascular: normal peripheral pulses, normal rate Respiratory/Chest: chest wall non-tender, decreased breath sounds, accessory muscle use, crackles/rales Abdomen: normal bowel sounds, non tender, soft Extremities: normal range of motion, non-tender, normal inspection Neurologic: second baller II-XII grossly normal, no motor/sensory deficits Intake and Output 12/13/18 12/14/18 19:00 07:00 Intake Total 1570 ml 2011 ml Output Total 835 ml 870 ml Balance 735 ml 1141 ml Free Water 30 ml 91 ml IV Total 720 ml 1200 ml Tube Feeding 720 ml 720 ml Other 100 ml Output Urine Total 835 ml 710 ml Stool Total 160 ml Laboratory Tests Test 12/14/18 04:20 12/14/18 07:00 12/14/18 09:35 White Blood Count 12.1 K/UL (4.8-10.8) H Red Blood Count 3.27 M/UL (4.70-6.10) L Hemoglobin 8.3 G/DL (14.2-18.0) L Hematocrit 26.8 % (42.0-52.0) L Mean Corpuscular Volume 82 FL (80-99) Mean Corpuscular Hemoglobin 25.4 PG (27.0-31.0) L Mean Corpuscular Hemoglobin Concent 31.1 G/DL (32.0-36.0) L Red Cell Distribution Width 18.3 % (11.6-14.8) H Platelet Count 342 K/UL (150-450) Mean Platelet Volume 8.0 FL (6.5-10.1) Neutrophils (%) (Auto) 73.2 % (45.0-75.0) Lymphocytes (%) (Auto) 20.1 % (20.0-45.0) Monocytes (%) (Auto) 3.4 % (1.0-10.0) Eosinophils (%) (Auto) 2.9 % (0.0-3.0) Basophils (%) (Auto) 0.4 % (0.0-2.0) Differential Total Cells Counted 100 Neutrophils % (Manual) 75 % (45-75) Lymphocytes % (Manual) 19 % (20-45) L Monocytes % (Manual) 4 % (1-10) Eosinophils % (Manual) 1 % (0-3) Basophils % (Manual) 0 % (0-2) Band Neutrophils 1 % (0-8) Platelet Estimate Adequate Platelet Morphology Normal Anisocytosis 2+ Erythrocyte Sedimentation Rate 122 MM/HR (0-20) H Reticulocyte Count Pending Prothrombin Time 14.2 SEC (9.30-11.50) H Prothromb Time International Ratio 1.4 (0.9-1.1) H Activated Partial Thromboplast Time 36 SEC (23-33) H Sodium Level 148 MMOL/L (136-145) H Potassium Level 3.5 MMOL/L (3.5-5.1) Chloride Level 111 MMOL/L (98-107) H Carbon Dioxide Level 28 MMOL/L (21-32) Anion Gap 10 mmol/L (5-15) Blood Urea Nitrogen 41 mg/dL (7-18) H Creatinine 1.1 MG/DL (0.55-1.30) Estimat Glomerular Filtration Rate mL/min (>60) Glucose Level 159 MG/DL (74-106) H Calcium Level 8.5 MG/DL (8.5-10.1) Phosphorus Level 3.5 MG/DL (2.5-4.9) Magnesium Level 2.0 MG/DL (1.8-2.4) Iron Level 37 ug/dL (50-175) L Total Iron Binding Capacity 64 ug/dL (250-450) L Percent Iron Saturation 58 % (15-50) H Unsaturated Iron Binding 27 ug/dL (112-346) L Total Bilirubin 0.6 MG/DL (0.2-1.0) Aspartate Amino Transf (AST/SGOT) 19 U/L (15-37) Alanine Aminotransferase (ALT/SGPT) 21 U/L (12-78) Alkaline Phosphatase 101 U/L (46-116) Lactate Dehydrogenase 141 U/L (81-234) C-Reactive Protein, Quantitative 18.1 mg/dL (0.00-0.90) H Total Protein 7.6 G/DL (6.4-8.2) Albumin 1.4 G/DL (3.4-5.0) L Globulin 6.2 g/dL Albumin/Globulin Ratio 0.2 (1.0-2.7) L Carcinoembryonic Antigen Pending Vitamin B12 Level 845 PG/ML (193-986) Folate 28.5 NG/ML (8.6-58.9) Urine Color Yellow Urine Appearance Clear Urine pH 6.5 (4.5-8.0) Urine Specific [place] 1.010 (1.005-1.035) Urine Protein 1+ (NEGATIVE) H Urine Glucose (UA) Negative (NEGATIVE) Urine Ketones Negative (NEGATIVE) Urine Blood 2+ (NEGATIVE) H Urine Nitrite Negative (NEGATIVE) Urine Bilirubin Negative (NEGATIVE) Urine Urobilinogen Normal MG/DL (0.0-1.0) Urine Leukocyte Esterase 1+ (NEGATIVE) H Urine RBC 2-4 /HPF (0 - 0) H Urine WBC 0-2 /HPF (0 - 0) Urine Squamous Epithelial Cells Occasional /LPF Urine Bacteria Occasional /HPF (NONE) Urine Eosinophils Moderate (NONE SEEN) Urine Random Sodium 56 mmol/L (20-110) Urine Potassium Timed 19 mmol/L (12-62) Arterial Blood pH 7.440 (7.350-7.450) Arterial Blood Partial Pressure CO2 40.7 mmHg (35.0-45.0) Arterial Blood Partial Pressure O2 116.0 mmHg (75.0-100.0) H Arterial Blood HCO3 27.0 mmol/L (22.0-26.0) H Arterial Blood Oxygen Saturation 97.7 % (95-100) Arterial Blood Base Excess 2.7 (-2-2) H Aroldo Test Positive Microbiology Date/Time Source Procedure Growth Status 12/12/18 04:30 Stool Clostridium difficile Toxin Assay - Final Complete FilRayo cabrera MD Dec 14, 2018 10:17
--- NOTE | 2018-12-14 10:20 | Pulmonolgy Critical Care Note ---
Critical Care - Asmt/Plan Problems: (1) Acute respiratory failure (2) Septic shock (3) Feeding by G-tube (4) ATN (acute tubular necrosis) (5) Diabetes mellitus, type II (6) COPD (chronic obstructive pulmonary disease) (7) History of hypertension (8) Hypothyroidism Respiratory: monitor respiratory rate, adjust FIO2, CXR, other - get CT chest to evaluate the persistant infiltrate Cardiac: continue to monitor HR/BP Renal: F/U I&O, keep IV fluid, check electrolytes Infectious Disease: check cultures, continue antibiotics Gastrointestinal: continue feedings/current rate Endocrine: monitor blood sugar Hematologic: monitor H/H, transfuse if hgb<8.5 Neurologic: PRN Ativan, keep patient comfortable Affect: PRN ativan Time Spent (Minutes): 40 Notes Reviewed: cardio Discussed with: nurses, consultants, sample case portercontinuity manager - Objective Last 24 Hour Vital Signs Date Time Temp Pulse Resp B/P (MAP) Pulse Ox O2 Delivery O2 Flow Rate FiO2 12/14/18 10:00 83 18 141/73 (95) 100 12/14/18 09:00 81 20 138/68 (91) 100 12/14/18 08:42 100 12/14/18 08:39 78 18 30 12/14/18 08:00 98.0 72 18 129/67 (87) 100 12/14/18 08:00 76 12/14/18 08:00 Mechanical Ventilator 12/14/18 08:00 30 12/14/18 07:16 70 16 30 12/14/18 07:00 70 18 122/66 (84) 100 12/14/18 06:00 76 18 123/63 (83) 100 12/14/18 05:30 78 16 30 12/14/18 05:00 83 18 152/70 (97) 100 12/14/18 04:00 98.0 70 16 130/70 (90) 100 12/14/18 04:00 Mechanical Ventilator 12/14/18 04:00 79 12/14/18 04:00 30 12/14/18 03:23 77 16 30 12/14/18 03:00 79 16 135/70 (91) 100 12/14/18 02:00 78 16 114/74 (87) 100 12/14/18 01:09 79 16 30 12/14/18 01:00 79 16 118/79 (92) 100 12/14/18 00:00 78 12/14/18 00:00 Mechanical Ventilator 12/14/18 00:00 98.8 81 16 145/75 (98) 100 12/14/18 00:00 30 12/13/18 23:26 80 16 30 12/13/18 23:00 81 16 147/75 (99) 100 12/13/18 22:00 83 16 134/63 (86) 100 12/13/18 21:08 91 18 30 12/13/18 21:00 87 16 138/70 (92) 100 12/13/18 20:00 Mechanical Ventilator 12/13/18 20:00 98.6 84 16 128/74 (92) 100 12/13/18 19:30 90 18 30 12/13/18 17:06 93 17 30 12/13/18 17:00 86 16 142/68 (92) 99 12/13/18 16:00 Mechanical Ventilator 12/13/18 16:00 92 12/13/18 16:00 30 12/13/18 16:00 98.9 89 16 117/64 (81) 99 12/13/18 15:21 92 16 30 12/13/18 15:00 91 18 129/68 (88) 99 12/13/18 14:00 98 18 137/70 (92) 99 12/13/18 13:34 98 16 30 12/13/18 13:00 97 18 142/70 (94) 99 12/13/18 12:00 97 12/13/18 12:00 Mechanical Ventilator 12/13/18 12:00 99.0 95 18 137/69 (91) 100 12/13/18 12:00 30 12/13/18 11:00 96 18 129/63 (85) 99 12/13/18 10:43 96 18 30 Status: awake Condition: critical HEENT: atraumatic, normocephalic Neck: full ROM Lungs: clear Heart: HR/BP stable Abdomen: soft, feeding tube Extremities: no C/C/E Decubiti: location, stage Micro: Microbiology Date/Time Source Procedure Growth Status 12/12/18 04:30 Stool Clostridium difficile Toxin Assay - Final Complete Accucheck: 101 Critical Care - Subjective FI02: 30 Vent Support Breath Rate: 16 Vent Support Mode: CPAP Vent Tidal Volume: 600 Sputum Amount: Moderate PEEP: 0.0 PIP: 8 Tube Feeding Amount: 60 I&O: Intake and Output 12/13/18 12/14/18 19:00 07:00 Intake Total 1570 ml 2011 ml Output Total 835 ml 870 ml Balance 735 ml 1141 ml Free Water 30 ml 91 ml IV Total 720 ml 1200 ml Tube Feeding 720 ml 720 ml Other 100 ml Output Urine Total 835 ml 710 ml Stool Total 160 ml CXR: extensive infiltrate ET-Tube: 8.0 ET Position: 23 Labs: Laboratory Tests Test 12/14/18 04:20 12/14/18 07:00 12/14/18 09:35 White Blood Count 12.1 K/UL (4.8-10.8) H Red Blood Count 3.27 M/UL (4.70-6.10) L Hemoglobin 8.3 G/DL (14.2-18.0) L Hematocrit 26.8 % (42.0-52.0) L Mean Corpuscular Volume 82 FL (80-99) Mean Corpuscular Hemoglobin 25.4 PG (27.0-31.0) L Mean Corpuscular Hemoglobin Concent 31.1 G/DL (32.0-36.0) L Red Cell Distribution Width 18.3 % (11.6-14.8) H Platelet Count 342 K/UL (150-450) Mean Platelet Volume 8.0 FL (6.5-10.1) Neutrophils (%) (Auto) 73.2 % (45.0-75.0) Lymphocytes (%) (Auto) 20.1 % (20.0-45.0) Monocytes (%) (Auto) 3.4 % (1.0-10.0) Eosinophils (%) (Auto) 2.9 % (0.0-3.0) Basophils (%) (Auto) 0.4 % (0.0-2.0) Differential Total Cells Counted 100 Neutrophils % (Manual) 75 % (45-75) Lymphocytes % (Manual) 19 % (20-45) L Monocytes % (Manual) 4 % (1-10) Eosinophils % (Manual) 1 % (0-3) Basophils % (Manual) 0 % (0-2) Band Neutrophils 1 % (0-8) Platelet Estimate Adequate Platelet Morphology Normal Anisocytosis 2+ Erythrocyte Sedimentation Rate 122 MM/HR (0-20) H Reticulocyte Count Pending Prothrombin Time 14.2 SEC (9.30-11.50) H Prothromb Time International Ratio 1.4 (0.9-1.1) H Activated Partial Thromboplast Time 36 SEC (23-33) H Sodium Level 148 MMOL/L (136-145) H Potassium Level 3.5 MMOL/L (3.5-5.1) Chloride Level 111 MMOL/L (98-107) H Carbon Dioxide Level 28 MMOL/L (21-32) Anion Gap 10 mmol/L (5-15) Blood Urea Nitrogen 41 mg/dL (7-18) H Creatinine 1.1 MG/DL (0.55-1.30) Estimat Glomerular Filtration Rate mL/min (>60) Glucose Level 159 MG/DL (74-106) H Calcium Level 8.5 MG/DL (8.5-10.1) Phosphorus Level 3.5 MG/DL (2.5-4.9) Magnesium Level 2.0 MG/DL (1.8-2.4) Iron Level 37 ug/dL (50-175) L Total Iron Binding Capacity 64 ug/dL (250-450) L Percent Iron Saturation 58 % (15-50) H Unsaturated Iron Binding 27 ug/dL (112-346) L Total Bilirubin 0.6 MG/DL (0.2-1.0) Aspartate Amino Transf (AST/SGOT) 19 U/L (15-37) Alanine Aminotransferase (ALT/SGPT) 21 U/L (12-78) Alkaline Phosphatase 101 U/L (46-116) Lactate Dehydrogenase 141 U/L (81-234) C-Reactive Protein, Quantitative 18.1 mg/dL (0.00-0.90) H Total Protein 7.6 G/DL (6.4-8.2) Albumin 1.4 G/DL (3.4-5.0) L Globulin 6.2 g/dL Albumin/Globulin Ratio 0.2 (1.0-2.7) L Carcinoembryonic Antigen Pending Vitamin B12 Level 845 PG/ML (193-986) Folate 28.5 NG/ML (8.6-58.9) Urine Color Yellow Urine Appearance Clear Urine pH 6.5 (4.5-8.0) Urine Specific [place] 1.010 (1.005-1.035) Urine Protein 1+ (NEGATIVE) H Urine Glucose (UA) Negative (NEGATIVE) Urine Ketones Negative (NEGATIVE) Urine Blood 2+ (NEGATIVE) H Urine Nitrite Negative (NEGATIVE) Urine Bilirubin Negative (NEGATIVE) Urine Urobilinogen Normal MG/DL (0.0-1.0) Urine Leukocyte Esterase 1+ (NEGATIVE) H Urine RBC 2-4 /HPF (0 - 0) H Urine WBC 0-2 /HPF (0 - 0) Urine Squamous Epithelial Cells Occasional /LPF Urine Bacteria Occasional /HPF (NONE) Urine Eosinophils Moderate (NONE SEEN) Urine Random Sodium 56 mmol/L (20-110) Urine Potassium Timed 19 mmol/L (12-62) Arterial Blood pH 7.440 (7.350-7.450) Arterial Blood Partial Pressure CO2 40.7 mmHg (35.0-45.0) Arterial Blood Partial Pressure O2 116.0 mmHg (75.0-100.0) H Arterial Blood HCO3 27.0 mmol/L (22.0-26.0) H Arterial Blood Oxygen Saturation 97.7 % (95-100) Arterial Blood Base Excess 2.7 (-2-2) H Aroldo Test Positive Isaiah Fritz MD Dec 14, 2018 10:20
--- NOTE | 2018-12-14 10:54 | NUR ---
Weaning stopped. Patient Placed back on previous settings. Patient tolerated well.
--- NOTE | 2018-12-14 11:06 | NUR ---
RD ASSESSMENT & RECOMMENDATIONS SEE CARE ACTIVITY FOR COMPLETE ASSESSMENT DAILY ESTIMATED NEEDS: Needs based on Critical care, sepsis/ 67kg 22-28 kcals/kg 1918-2738 total kcals 1.2-2 g protein/kg 80-134 g total protein 25-30 mL/kg 9293-7324 total fluid mLs NUTRITION DIAGNOSIS: 1) Swallowing difficulty R/T dysphagia as evidenced by pt is PEG dep, on GT feeding, orally intubated at this time. 2) Altered nutrition related lab values r/t hyperglycemia as evidenced by BG 151, 159, on continuous tube feeds. CURRENT TF:Jevity 1.2 @ 60ml/hr x 22 hrs + Prosource 1pkt QD ENTERAL NUTRITION RECOMMENDATIONS: Jevity 1.2 @ 60ml/hr x 22 hrs + Prosource 1pkt QD to provide 1320ml, 1584kcal, 73g + 11g prot, 1082ml free water * Maintain current TF + Prosource 1pkt daily * Hold 1 hour before and after Synthroid med * HOB over 30 degrees/ water flush per MD WITH CONSISTENTLY ELEV BGS, REC TF CHANGE TO GLUCERNA 1.2 Glucerna 1.2 @ 60ml/hr x 22 hrs + Prosource 1pkt QD -> 1320ml, 1584kcal, 79 +11g prot, 1062ml free water ADDITIONAL RECOMMENDATIONS: * Per SNF, HT=67", WC=306# (from 11/23/18) * Calibrated bedscale wt for accurate CBW * Monitor BGs closely, need for carb controlled TF formula, hypoglycemic agents -> h/o DM * Monitor lytes, replete as needed. * Consider increasing water flushes (vs added D5) for hypernatremia
--- NOTE | 2018-12-14 11:10 | NUR ---
NURSE NOTES: Left upper arm PICC line was inserted, pt tolerated well.
--- NOTE | 2018-12-14 11:45 | NUR ---
NURSE NOTES: Dr. Car made aware of BP 169/143 from left thigh and 173/67 from right thigh, unable to check BP from arms due to right arm DVT and Left upper arm PICC line. 50mg hydralazine IVP x1 ordered. Addendum: 12/14/18 at 1409 by ANGÉLICA ASHLEY RN Incorrect time
--- NOTE | 2018-12-14 12:31 | Diagnostic Imaging Report ---
Indications: Needs long-term IV access Technique: Procedure performed at bedside. Procedural timeout performed. Ultrasound confirms patent compressible left basilic vein. Total sterile technique, including sterile probe cover and sterile gel, sterile gloves, hand hygiene, hat, mask,, sterile gown, large sterile drape, and preparation with 2% chlorhexidine utilized. Local anesthesia with 1% lidocaine. Under real-time ultrasound guidance, puncture basilic vein using 21-gauge needle, passage 0.018 guidewire, exchange for 5 Ukrainian peel-away sheath. 5 [place] Bard dual-lumen power PICC cut to 40 cm. It was inserted through the peel-away sheath. Peel-away sheath and guidewire removed. Catheter fixed to the skin. Both catheter ports aspirated and flushed. Patient tolerated procedure well, without immediate complication. Followup chest x-ray obtained, documents catheter tip position at the high right atrium Impression: Successful bedside placement of right arm PICC under sonographic guidance, as described above.
--- NOTE | 2018-12-14 13:45 | NUR ---
NURSE NOTES: Dr. Car made aware of BP 169/143 from left thigh and 173/67 from right thigh, unable to check BP from arms due to right arm DVT and Left upper arm PICC line. 50mg hydralazine IVP x1 ordered.
--- NOTE | 2018-12-14 14:06 | NUR ---
NURSE NOTES: Ok to give hydralazine 20mg IVP x1 and another 20mg IVPx1 if BP still elevated >[address] Car. Order carried out.
--- NOTE | 2018-12-14 14:39 | Diagnostic Imaging Report ---
Indication: Dyspnea Technique: One view of the chest Comparison: 12/13/2018 Findings: Stable satisfactory position of endotracheal tube. Bilateral infiltrates are again demonstrated. The heart size is normal. Impression: Unchanged, over one day, findings as above.
[2018-12-14] MEDS: LORazepam Inj 2mg/ml 1ml IV PRN (15:20)
--- NOTE | 2018-12-14 15:24 | NUR ---
NURSE NOTES: Patient is agitated, BP 161/[address] Matthews at bedside. received order for Ativan PRN.
--- NOTE | 2018-12-14 15:30 | Internal Med Progress Note ---
Subjective Physician Name Tye Matthews Attending Physician Isaiah Fritz MD Current Medications Medications (Trade) Dose Ordered Sig/Courtney Route PRN Reason Start Time Stop Time Status Last Admin Dose Admin Acetaminophen (Tylenol) 650 mg Q4H PRN ORAL fever 12/04/18 14:00 01/03/19 13:59 12/07/18 19:26 Chlorhexidine Gluconate (Amna-Hex 2%) 1 applic DAILY@2000 TOPIC 12/13/18 20:00 01/12/19 19:59 Dextrose/ Electrolytes 1,000 ml @ 100 mls/hr Q10H IV 12/13/18 12:00 01/12/19 11:59 12/14/18 08:53 Heparin Sodium (Porcine) (Heparin 5000 units/ml) 5,000 units EVERY 12 HOURS SUBQ 12/04/18 21:00 01/03/19 20:59 12/14/18 08:55 Heparin Sodium/ Sodium Chloride (Heparin 2000 units/Ns 1000ml premix) 2,000 unit ONCE PRN INJ PICC 12/14/18 10:00 12/14/18 23:59 Hydralazine HCl (Apresoline) 20 mg ONCE PRN IV REPEAT IF SBP > 140mmHg 12/14/18 15:00 12/14/18 18:00 Levothyroxine Sodium (Synthroid) 25 mcg DAILY@0630 ORAL 12/09/18 06:30 01/08/19 06:29 12/14/18 06:17 Lidocaine HCl (Xylocaine 1% 30ml) 30 ml ONCE PRN INJ PICC 12/14/18 10:00 12/14/18 23:59 Lorazepam (Ativan 2mg/ml 1ml) 0.5 mg Q6H PRN IV For Anxiety 12/14/18 15:15 12/21/18 15:14 12/14/18 15:20 Norepinephrine Bitartrate 4 mg/ Dextrose 254 ml @ 0 mls/hr Q24H IV 12/04/18 14:00 01/03/19 13:59 Pantoprazole (Protonix) 40 mg DAILY IVP 12/05/18 09:00 01/04/19 08:59 12/14/18 08:54 Tigecycline 50 mg/ Sodium Chloride 110 ml @ 220 mls/hr EVERY 12 HOURS IVPB 12/10/18 21:00 12/17/18 20:59 12/14/18 08:53 Allergies: Coded Allergies: No Known Allergies (Unverified , 12/04/18) Subjective awake, responsive intubated, on vent, in ICU. Objective Last Vital Signs Date Time Temp Pulse Resp B/P (MAP) Pulse Ox O2 Delivery O2 Flow Rate FiO2 12/14/18 15:03 119 29 30 12/14/18 15:00 161/85 (110) 100 12/14/18 12:00 97.9 12/14/18 12:00 Mechanical Ventilator Laboratory Tests Test 12/14/18 04:20 12/14/18 07:00 12/14/18 09:35 White Blood Count 12.1 K/UL (4.8-10.8) H Red Blood Count 3.27 M/UL (4.70-6.10) L Hemoglobin 8.3 G/DL (14.2-18.0) L Hematocrit 26.8 % (42.0-52.0) L Mean Corpuscular Volume 82 FL (80-99) Mean Corpuscular Hemoglobin 25.4 PG (27.0-31.0) L Mean Corpuscular Hemoglobin Concent 31.1 G/DL (32.0-36.0) L Red Cell Distribution Width 18.3 % (11.6-14.8) H Platelet Count 342 K/UL (150-450) Mean Platelet Volume 8.0 FL (6.5-10.1) Neutrophils (%) (Auto) 73.2 % (45.0-75.0) Lymphocytes (%) (Auto) 20.1 % (20.0-45.0) Monocytes (%) (Auto) 3.4 % (1.0-10.0) Eosinophils (%) (Auto) 2.9 % (0.0-3.0) Basophils (%) (Auto) 0.4 % (0.0-2.0) Differential Total Cells Counted 100 Neutrophils % (Manual) 75 % (45-75) Lymphocytes % (Manual) 19 % (20-45) L Monocytes % (Manual) 4 % (1-10) Eosinophils % (Manual) 1 % (0-3) Basophils % (Manual) 0 % (0-2) Band Neutrophils 1 % (0-8) Platelet Estimate Adequate Platelet Morphology Normal Anisocytosis 2+ Erythrocyte Sedimentation Rate 122 MM/HR (0-20) H Reticulocyte Count 0.9 % (0.0-2.0) Prothrombin Time 14.2 SEC (9.30-11.50) H Prothromb Time International Ratio 1.4 (0.9-1.1) H Activated Partial Thromboplast Time 36 SEC (23-33) H Sodium Level 148 MMOL/L (136-145) H Potassium Level 3.5 MMOL/L (3.5-5.1) Chloride Level 111 MMOL/L (98-107) H Carbon Dioxide Level 28 MMOL/L (21-32) Anion Gap 10 mmol/L (5-15) Blood Urea Nitrogen 41 mg/dL (7-18) H Creatinine 1.1 MG/DL (0.55-1.30) Estimat Glomerular Filtration Rate mL/min (>60) Glucose Level 159 MG/DL (74-106) H Calcium Level 8.5 MG/DL (8.5-10.1) Phosphorus Level 3.5 MG/DL (2.5-4.9) Magnesium Level 2.0 MG/DL (1.8-2.4) Iron Level 37 ug/dL (50-175) L Total Iron Binding Capacity 64 ug/dL (250-450) L Percent Iron Saturation 58 % (15-50) H Unsaturated Iron Binding 27 ug/dL (112-346) L Total Bilirubin 0.6 MG/DL (0.2-1.0) Aspartate Amino Transf (AST/SGOT) 19 U/L (15-37) Alanine Aminotransferase (ALT/SGPT) 21 U/L (12-78) Alkaline Phosphatase 101 U/L (46-116) Lactate Dehydrogenase 141 U/L (81-234) C-Reactive Protein, Quantitative 18.1 mg/dL (0.00-0.90) H Total Protein 7.6 G/DL (6.4-8.2) Albumin 1.4 G/DL (3.4-5.0) L Globulin 6.2 g/dL Albumin/Globulin Ratio 0.2 (1.0-2.7) L Carcinoembryonic Antigen Pending Vitamin B12 Level 845 PG/ML (193-986) Folate 28.5 NG/ML (8.6-58.9) Urine Color Yellow Urine Appearance Clear Urine pH 6.5 (4.5-8.0) Urine Specific [place] 1.010 (1.005-1.035) Urine Protein 1+ (NEGATIVE) H Urine Glucose (UA) Negative (NEGATIVE) Urine Ketones Negative (NEGATIVE) Urine Blood 2+ (NEGATIVE) H Urine Nitrite Negative (NEGATIVE) Urine Bilirubin Negative (NEGATIVE) Urine Urobilinogen Normal MG/DL (0.0-1.0) Urine Leukocyte Esterase 1+ (NEGATIVE) H Urine RBC 2-4 /HPF (0 - 0) H Urine WBC 0-2 /HPF (0 - 0) Urine Squamous Epithelial Cells Occasional /LPF Urine Bacteria Occasional /HPF (NONE) Urine Eosinophils Moderate (NONE SEEN) Urine Random Sodium 56 mmol/L (20-110) Urine Potassium Timed 19 mmol/L (12-62) Arterial Blood pH 7.440 (7.350-7.450) Arterial Blood Partial Pressure CO2 40.7 mmHg (35.0-45.0) Arterial Blood Partial Pressure O2 116.0 mmHg (75.0-100.0) H Arterial Blood HCO3 27.0 mmol/L (22.0-26.0) H Arterial Blood Oxygen Saturation 97.7 % (95-100) Arterial Blood Base Excess 2.7 (-2-2) H Aroldo Test Positive Microbiology Date/Time Source Procedure Growth Status 12/13/18 09:40 Blood Blood Culture - Preliminary NO GROWTH AFTER 24 HOURS Resulted 12/13/18 09:30 Blood Blood Culture - Preliminary NO GROWTH AFTER 24 HOURS Resulted 12/12/18 04:30 Stool Clostridium difficile Toxin Assay - Final Complete Intake and Output 12/13/18 12/14/18 19:00 07:00 Intake Total 1570 ml 2011 ml Output Total 835 ml 870 ml Balance 735 ml 1141 ml Free Water 30 ml 91 ml IV Total 720 ml 1200 ml Tube Feeding 720 ml 720 ml Other 100 ml Output Urine Total 835 ml 710 ml Stool Total 160 ml Objective General: awake, alert, responsive, intubated. HEENT: NCAT, sclera anicteric, PERRL, ET Tube. Neck: Supple, no significant jugular venous distention, Lungs: Mechanical breath sound, decrease air at bases. no Wheeze or Rales. Heart: Regular rate and rhythm, normal S1/S2, no murmur. Abdomen: soft, nontender, nondistended. Normoactive bowel sounds, PEG site intact, + umbilical hernia. / Rectal: Andrade cath. Extremities: No Cyanosis , clubbing, right upper extremity edema. Left upper extremity PICC line. Neuro: A&O x 3, Able to move lower extremities extremities slowly. Skin: warm, no rashes Assessment/Plan Assessment/Plan Assessment: Severe Sepsis- likely 2ry to PNA, r/o bacteremia, UTI. Possible Flu despite neg screen test Acute respiratory failure s/p intubation 12/04 ELICIA COPD DM2 HTN Dysphagia s/p G-tube Dementia Plan: -Antibiotics: Tygacil -monitor labs and cultures, Tube feeding Weaning trial. Heparin SQ Full code. Tye Matthews MD Dec 14, 2018 15:30
--- NOTE | 2018-12-14 15:40 | NUR ---
NURSE NOTES: BP still elevated, 161/48 HR 110. 2nd hydralazine 20mg IVP given. will continue to monitor.
--- NOTE | 2018-12-14 17:51 | NUR ---
NURSE NOTES: Patient resting in bed with eyes closed, BP 126/66 HR 106. No acute distress noted.
--- NOTE | 2018-12-14 19:13 | NUR ---
RESPIRATORY NOTE: Received pt on AC 16, 600VT, 30%, no PEEP. Pt intubated w/ ETT 83.0 @ 23cm lipline, secured by anchorfast. Pt alert/awake, follows commands. Both hands on soft-restraints to prevent pt from self-extubation. B/S rachel. rhonchi, sxn small to moderate amounts of thick, yellow secretions. Vent plugged into red outlet, ambubag at bedside. Pt denies SOB/chest pain at this time. Will continue to monitor pt.
--- NOTE | 2018-12-14 19:13 | NUR ---
HAND-OFF: Report given to DARIANA Young.
--- NOTE | 2018-12-14 20:00 | NUR ---
NURSE NOTES: Received pt in no acute distress; awake, alert but non verbal 2/2 ETT. Remains on the vent settings of AC16 TV600 fiO2 .30, 0 peep. Current parameters well tolerated. Pt has large amt of whitish creamy secretions. Newly placed PICC on BRADLEY intact with IVF of D51/2NS with 20meqKCL infusing at 100 ml/h. GT patent with GTF of Jevity 1.2 infusing at 60ml/h with 0 residuals. Pt is incontinent of large amt of diarrhea despite of the rectal tube. Complete bed bath done and linen changed as well. Irrigated rectal tube and appears to be intact and patent. Scrotal area with some excoriations. Applied calazime cream to perianal areas. A&D ointment applied to both feet. FC patent, UOP dark ashley, sl cloudy draining 80-100 ml/h.Will continue to monitor. Afebrile, ST on the scope; BP stable.
[2018-12-14] MEDS: Dyna-Hex 2% Top Sol 2oz TOPIC SCH (20:56)
--- NOTE | 2018-12-14 22:00 | NUR ---
NURSE NOTES: Calm, watching TV. HOB elevated to >45. VSS. Oral care and suctioning done
[2018-12-15] VITALS (24 sets, daily range): BP systolic 115–164; BP diastolic 33–110
--- NOTE | 2018-12-15 | NUR ---
NURSE NOTES: Sleeping. Temp 99.7 axillary. Still tachycardic, HR 100-105. BP stable. No distress. Bilat soft wrist restraints renewed
--- NOTE | 2018-12-15 02:00 | NUR ---
NURSE NOTES: Calm and asleep, no distress, VSS, Oral care and suctioning done
--- NOTE | 2018-12-15 04:00 | NUR ---
NURSE NOTES: AM care done. No further leakage from rectal tube. Irrigated rectal tube. Redressed PEG exit site. Redressed PICC . Afebrile, BP stable. GTF well tolerated. Bilat soft wrist restraints maintained.
[2018-12-15] MEDS: D5 1/2NS w/KCl 20mEq 1,000 ML IV SCH ×2 (04:59→13:48)
[2018-12-15] MEDS: Levothyroxine 25mcg tab ORAL SCH (06:01)
[2018-12-15 06:30] LABS: BASOPHILS % (AUTO) 0.9 % (0.0-2.0); EOSINOPHILS % (AUTO) 2.4 % (0.0-3.0); HEMATOCRIT 25.5 % (42.0-52.0); LYMPHOCYTES % (AUTO) 14.8 % (20.0-45.0); MEAN CORPUSCULAR VOLUME 82 FL (80-99); MONOCYTES % (AUTO) 3.8 % (1.0-10.0); PLATELET COUNT 317 K/UL (150-450); RED BLOOD COUNT 3.12 M/UL (4.70-6.10); RED CELL DISTRIBUTION WIDTH 17.6 % (11.6-14.8)
[2018-12-15 06:34] LABS: ALANINE AMINOTRANSFERASE 19 U/L (12-78); ALBUMIN 1.4 G/DL (3.4-5.0); ALBUMIN/GLOBULIN RATIO 0.2 (1.0-2.7); ALKALINE PHOSPHATASE 100 U/L (46-116); ANION GAP 8 mmol/L (5-15); ASPARTATE AMINO TRANSFERASE 23 U/L (15-37); BILIRUBIN,TOTAL 0.6 MG/DL (0.2-1.0); BLOOD UREA NITROGEN 34 mg/dL (7-18); CALCIUM 8.2 MG/DL (8.5-10.1); CARBON DIOXIDE 27 MMOL/L (21-32); CHLORIDE 112 MMOL/L (98-107); CREATININE 1.1 MG/DL (0.55-1.30); PHOSPHORUS 3.7 MG/DL (2.5-4.9); POTASSIUM 4.1 MMOL/L (3.5-5.1); SODIUM 146 MMOL/L (136-145)
--- NOTE | 2018-12-15 07:05 | NUR ---
HAND-OFF: Report given to Misti Stevens RN.
--- NOTE | 2018-12-15 07:24 | NUR ---
RESPIRATORY NOTE: received pt awake, responsive with no resp distress. pt on current vent settings and intubated with 8.0 ett placed 23cm at the lip secured via anchor fast. vent is plugged into redoutlet, alarms are set and audible and ambu bag at bedside. will cont to monitor.
--- NOTE | 2018-12-15 08:07 | Cardiology Progress Note ---
Assessment/Plan Status: stable Assessment/Plan Assessment/Plan Assessment/Plan 1. Respiratory failure with elevated BNP. His echocardiogram showed ejection fraction of 55% to 60% with diastolic dysfunction. 2. Pneumonia, respiratory failure on the ventilator as well as on broad- spectrum IV antibiotic, CXR with continued right sided infiltrate, CT CHEST PENDING 3. Hypertension. continue lisinopril 20 mg b.i.d. Hydralazine prn 4. Severe sepsis, likely due to pneumonia and bacteremia. Continue abx per ID 5. Diabetes 6. Dysphagia, status post PEG placement, tolerating feeds, no residuals 7. Azotemia - DC Lasix due to rising BUN, monitor I/O and renal function. replete electrolytes Subjective Cardiovascular: Reports: no symptoms Respiratory: Reports: no symptoms Gastrointestinal/Abdominal: Reports: no symptoms Genitourinary: Reports: no symptoms Subjective Coverage for [place] No acute events, needed hydralazine prn for elevated BP, vent settings stable, tolerating feeds, WBC persistently elevated, CXR with no improvement, no fevers , WBC stable, PICC line inserted, CT chest pending Objective Last 24 Hour Vital Signs Date Time Temp Pulse Resp B/P (MAP) Pulse Ox O2 Delivery O2 Flow Rate FiO2 12/15/18 07:22 93 22 30 12/15/18 06:00 102 17 142/59 (86) 100 12/15/18 05:05 92 18 30 12/15/18 05:01 96 19 132/54 (80) 100 12/15/18 04:00 30 12/15/18 04:00 Mechanical Ventilator 12/15/18 04:00 99 12/15/18 04:00 98.8 99 22 120/56 (77) 100 12/15/18 03:16 97 23 30 12/15/18 03:00 97 21 134/33 (66) 100 12/15/18 02:00 100 21 126/51 (76) 100 12/15/18 01:11 100 18 30 12/15/18 01:00 109 23 115/59 (77) 100 12/15/18 00:00 99.7 102 20 121/59 (79) 100 12/15/18 00:00 Mechanical Ventilator 12/15/18 00:00 30 12/15/18 00:00 102 12/14/18 23:10 101 20 30 12/14/18 23:00 103 20 135/51 (79) 100 12/14/18 22:00 106 22 145/58 (87) 100 12/14/18 21:02 109 27 30 12/14/18 21:00 110 27 150/76 (100) 100 12/14/18 20:00 98.8 108 26 153/73 (99) 100 12/14/18 20:00 30 12/14/18 20:00 Mechanical Ventilator 12/14/18 20:00 108 12/14/18 19:13 116 20 150/64 (92) 100 12/14/18 19:11 108 26 30 12/14/18 18:00 109 23 126/59 (81) 99 12/14/18 17:20 112 32 30 12/14/18 17:00 98.3 116 23 150/50 (83) 99 12/14/18 16:00 30 12/14/18 16:00 118 12/14/18 16:00 112 22 121/73 (89) 98 12/14/18 16:00 Mechanical Ventilator 12/14/18 15:45 118 20 137/64 (88) 96 12/14/18 15:37 161/48 12/14/18 15:30 110 22 161/48 (85) 96 12/14/18 15:03 119 29 30 12/14/18 15:00 109 18 161/85 (110) 100 12/14/18 14:30 100 25 143/73 (96) 100 12/14/18 14:15 173/73 12/14/18 14:00 79 18 171/66 (101) 100 12/14/18 13:17 73 16 30 12/14/18 13:00 84 18 169/143 (152) 100 12/14/18 12:00 30 12/14/18 12:00 87 12/14/18 12:00 97.9 84 18 159/42 (81) 100 12/14/18 12:00 Mechanical Ventilator 12/14/18 11:00 88 18 158/72 (100) 100 12/14/18 10:53 83 21 30 12/14/18 10:00 83 18 141/73 (95) 100 12/14/18 09:00 81 20 138/68 (91) 100 12/14/18 08:42 100 12/14/18 08:39 78 18 30 General Appearance: no apparent distress, on vent EENT: PERRL/EOMI, normal ENT inspection, TMs normal, pharynx normal Neck: non-tender, normal alignment, supple, no JVD Rhythm: ST Cardiovascular: normal peripheral pulses, regular rhythm, tachycardia Respiratory/Chest: accessory muscle use, crackles/rales, rhonchi - bilaterally Abdomen: normal bowel sounds, non tender, soft, no organomegaly, no mass Extremities: non-tender, normal inspection, no swelling 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, motor weakness, sensory deficit, disoriented Intake and Output 12/14/18 12/15/18 18:59 06:59 Intake Total 2125.7 ml 1990 ml Output Total 995 ml 1025 ml Balance 1130.7 ml 965 ml Free Water 190 ml IV Total 1215.7 ml 1210 ml Tube Feeding 720 ml 720 ml Other 60 ml Output Urine Total 935 ml 825 ml Stool Total 60 ml 200 ml Laboratory Tests Test 12/14/18 09:35 12/15/18 05:45 Arterial Blood pH 7.440 (7.350-7.450) Arterial Blood Partial Pressure CO2 40.7 mmHg (35.0-45.0) Arterial Blood Partial Pressure O2 116.0 mmHg (75.0-100.0) H Arterial Blood HCO3 27.0 mmol/L (22.0-26.0) H Arterial Blood Oxygen Saturation 97.7 % (95-100) Arterial Blood Base Excess 2.7 (-2-2) H Aroldo Test Positive White Blood Count 15.0 K/UL (4.8-10.8) H Red Blood Count 3.12 M/UL (4.70-6.10) L Hemoglobin 8.0 G/DL (14.2-18.0) L Hematocrit 25.5 % (42.0-52.0) L Mean Corpuscular Volume 82 FL (80-99) Mean Corpuscular Hemoglobin 25.6 PG (27.0-31.0) L Mean Corpuscular Hemoglobin Concent 31.4 G/DL (32.0-36.0) L Red Cell Distribution Width 17.6 % (11.6-14.8) H Platelet Count 317 K/UL (150-450) Mean Platelet Volume 7.9 FL (6.5-10.1) Neutrophils (%) (Auto) 78.0 % (45.0-75.0) H Lymphocytes (%) (Auto) 14.8 % (20.0-45.0) L Monocytes (%) (Auto) 3.8 % (1.0-10.0) Eosinophils (%) (Auto) 2.4 % (0.0-3.0) Basophils (%) (Auto) 0.9 % (0.0-2.0) Sodium Level 146 MMOL/L (136-145) H Potassium Level 4.1 MMOL/L (3.5-5.1) Chloride Level 112 MMOL/L (98-107) H Carbon Dioxide Level 27 MMOL/L (21-32) Anion Gap 8 mmol/L (5-15) Blood Urea Nitrogen 34 mg/dL (7-18) H Creatinine 1.1 MG/DL (0.55-1.30) Estimat Glomerular Filtration Rate mL/min (>60) Glucose Level 157 MG/DL (74-106) H Calcium Level 8.2 MG/DL (8.5-10.1) L Phosphorus Level 3.7 MG/DL (2.5-4.9) Magnesium Level 1.9 MG/DL (1.8-2.4) Total Bilirubin 0.6 MG/DL (0.2-1.0) Aspartate Amino Transf (AST/SGOT) 23 U/L (15-37) Alanine Aminotransferase (ALT/SGPT) 19 U/L (12-78) Alkaline Phosphatase 100 U/L (46-116) Total Protein 7.1 G/DL (6.4-8.2) Albumin 1.4 G/DL (3.4-5.0) L Globulin 5.7 g/dL Albumin/Globulin Ratio 0.2 (1.0-2.7) L Microbiology Date/Time Source Procedure Growth Status 12/13/18 09:40 Blood Blood Culture - Preliminary NO GROWTH AFTER 24 HOURS Resulted 12/13/18 09:30 Blood Blood Culture - Preliminary NO GROWTH AFTER 24 HOURS Resulted Rayo Car MD Dec 15, 2018 08:07
--- NOTE | 2018-12-15 08:15 | NUR ---
NURSE NOTES: Dr. Car updated at the bedside with patient, no verbal orders given at this time, patient has a levophed order for hypotension but has not bed used, will continue to monitor.
[2018-12-15] MEDS: Heparin 5000 units/ml inj SUBQ SCH ×2 (08:51→20:27)
[2018-12-15] MEDS: Tigecycline 50 MG in NS 110 ML IVPB SCH ×2 (08:51→20:26)
[2018-12-15] MEDS: Pantoprazole Inj IVP SCH (08:51)
[2018-12-15] MEDS ORDERED: Tubing IV Secondary IV ONE ×2 (09:08→10:49)
--- NOTE | 2018-12-15 09:30 | NUR ---
NURSE NOTES: Patient AM medications given and explained purpose of administration, he is awake and alert attempting to reach and pointing at ET-tube, explained RT will be placing him on CPAP to assess if the tube can come out, patient shakes head 'yes' in understanding however they must draw a ABG, PAtient seen by [place] at the bedside and updated on patient condition, will continue to monitor.
--- NOTE | 2018-12-15 10:42 | Pulmonolgy Critical Care Note ---
Critical Care - Asmt/Plan Assessment/Plan: ASSESSMENT Acute hypoxemic respiratory failure, requiring intubation Septic shock -resolved Sepsis PNA possible UTI with proteus ESBL ( small colony count) Dysphagia , G-tube feeding Acute tubular necrosis-resolved COPD Diabetes mellitus type 2 Hypothyroidism History of hypertension PLAN OF CARE ICU status Vent support Pulmonary toilet ABG stable on current settings weaning protocol as tolerated fup with chest x-ray and ABG CT chest pending abx as per ID stool C. difficile negative , sputum culture ACB MDR , influenza screen test negative blood culture prel negative urine cx Proteus ESBL with small colony count cardio follows Echo with pEF venous duplex BLE negative supportive care bowel regimen DVT/ GI prophylaxis hemodynamic status better, BP stable monitor renal parameters and lytes, correct electrolytes as needed, avoid nephrotoxic creatinine stable decrease IVF rate abd increase free water via G-tube strict aspiration precaution G-tube feeding monitor tolerance BS management with SSI supportive care case discussed and evaluated by supervising physician Critical Care - Objective Last 24 Hour Vital Signs Date Time Temp Pulse Resp B/P (MAP) Pulse Ox O2 Delivery O2 Flow Rate FiO2 12/15/18 10:00 98 21 145/110 (122) 100 12/15/18 09:00 93 20 129/72 (91) 100 12/15/18 08:52 103 21 30 12/15/18 08:00 86 12/15/18 08:00 30 12/15/18 08:00 98.6 88 18 139/59 (85) 100 12/15/18 08:00 Mechanical Ventilator 12/15/18 07:22 93 22 30 12/15/18 07:00 93 19 125/59 (81) 100 12/15/18 06:00 102 17 142/59 (86) 100 12/15/18 05:05 92 18 30 12/15/18 05:01 96 19 132/54 (80) 100 12/15/18 04:00 30 12/15/18 04:00 Mechanical Ventilator 12/15/18 04:00 99 12/15/18 04:00 98.8 99 22 120/56 (77) 100 12/15/18 03:16 97 23 30 12/15/18 03:00 97 21 134/33 (66) 100 12/15/18 02:00 100 21 126/51 (76) 100 12/15/18 01:11 100 18 30 12/15/18 01:00 109 23 115/59 (77) 100 12/15/18 00:00 99.7 102 20 121/59 (79) 100 12/15/18 00:00 Mechanical Ventilator 12/15/18 00:00 30 12/15/18 00:00 102 12/14/18 23:10 101 20 30 12/14/18 23:00 103 20 135/51 (79) 100 12/14/18 22:00 106 22 145/58 (87) 100 12/14/18 21:02 109 27 30 12/14/18 21:00 110 27 150/76 (100) 100 12/14/18 20:00 98.8 108 26 153/73 (99) 100 12/14/18 20:00 30 12/14/18 20:00 Mechanical Ventilator 12/14/18 20:00 108 12/14/18 19:13 116 20 150/64 (92) 100 12/14/18 19:11 108 26 30 12/14/18 18:00 109 23 126/59 (81) 99 12/14/18 17:20 112 32 30 12/14/18 17:00 98.3 116 23 150/50 (83) 99 12/14/18 16:00 30 12/14/18 16:00 118 12/14/18 16:00 112 22 121/73 (89) 98 12/14/18 16:00 Mechanical Ventilator 12/14/18 15:45 118 20 137/64 (88) 96 12/14/18 15:37 161/48 12/14/18 15:30 110 22 161/48 (85) 96 12/14/18 15:03 119 29 30 12/14/18 15:00 109 18 161/85 (110) 100 12/14/18 14:30 100 25 143/73 (96) 100 12/14/18 14:15 173/73 12/14/18 14:00 79 18 171/66 (101) 100 12/14/18 13:17 73 16 30 12/14/18 13:00 84 18 169/143 (152) 100 12/14/18 12:00 30 12/14/18 12:00 87 12/14/18 12:00 97.9 84 18 159/42 (81) 100 12/14/18 12:00 Mechanical Ventilator 12/14/18 11:00 88 18 158/72 (100) 100 12/14/18 10:53 83 21 30 Status: other - intuabted, on vent AC, in NAD Condition: critical HEENT: atraumatic, normocephalic, other - OP with ET in place, intact Lungs: clear - with moderate air intake Heart: HR/BP stable Abdomen: soft, active bowel sounds, other - G tube Extremities: other - no edema Micro: Microbiology Date/Time Source Procedure Growth Status 12/13/18 09:40 Blood Blood Culture - Preliminary NO GROWTH AFTER 24 HOURS Resulted 12/13/18 09:30 Blood Blood Culture - Preliminary NO GROWTH AFTER 24 HOURS Resulted Accucheck: 101 Critical Care - Subjective ROS Limited/Unobtainable: Yes Interval Events: leukocytosis with some trend up creat stable no signs of resp distress on current settings HH with some trend down Condition: critical IV Access: PICC - LUE intact EKG Rhythm: Sinus Rhythm FI02: 30 Vent Support Breath Rate: 16 Vent Support Mode: AC Vent Tidal Volume: 600 Sputum Amount: Moderate PEEP: 0.0 PIP: 22 Tube Feeding Amount: 60 I&O: Intake and Output 12/14/18 12/15/18 18:59 06:59 Intake Total 2125.7 ml 1990 ml Output Total 995 ml 1025 ml Balance 1130.7 ml 965 ml Free Water 190 ml IV Total 1215.7 ml 1210 ml Tube Feeding 720 ml 720 ml Other 60 ml Output Urine Total 935 ml 825 ml Stool Total 60 ml 200 ml CXR: 12/14 Stable satisfactory position of endotracheal tube. Bilateral infiltrates are again demonstrated. The heart size is normal. ET-Tube: 8.0 ET Position: 23 Bindu Callahan NP Dec 15, 2018 10:42
[2018-12-15] MEDS ORDERED: Albuterol/Ipratropium 3ml neb HHN PRN (10:45)
--- NOTE | 2018-12-15 10:51 | NUR ---
RESPIRATORY NOTE: pt on CPAP with PS 8, fio 30%, Peep +0. pt tolerating well for 5 minutes now. will cont to monitor.
--- NOTE | 2018-12-15 11:00 | NUR ---
NURSE NOTES: Patient placed on CPAP with PS of 8, RT at the bedside explaining weaning to patient and sister, sister is at the bedside with holding patient hand and talking with him, patient remains saturating at 98-100% with RR at 25-26, patient is calm and taking breaths with no distress. will continue to monitor.
--- NOTE | 2018-12-15 12:09 | Diagnostic Imaging Report ---
EXAM: XR Chest, 1 View CLINICAL HISTORY: DYSPNEA TECHNIQUE: Frontal view of the chest. COMPARISON: Chest x-ray 12-14-18 1124 FINDINGS: Lungs: Worsening bilateral interstitial and airspace opacities, especially in the right lower lobe. Pleural space: Probable tiny right pleural effusion. No pneumothorax. Heart: Unremarkable. No cardiomegaly. Mediastinum: Unremarkable. Bones/joints: Unremarkable. Tubes, lines and devices: Stable endotracheal tube and left PICC line. IMPRESSION: 1. Worsening bilateral interstitial and airspace opacities, especially in the right lower lobe. 2. Probable tiny right pleural effusion.
--- NOTE | 2018-12-15 12:15 | NUR ---
NURSE NOTES: remains on weaning with setting of CPAP with PS of 8 on 30% FIO2, he is breathing at 31-33 with deep breathing, remains awake and able to use gestures to make needs known, patient asked is he is tired and nodes , "yes". Patient explained he will be placed on regluar setting with ventilator breathing for him, returned to AC 16, TV: 600, FIO2 30%, he remains saturating at 99-100% with RR decreasing to 26-29, patient BP has been in the 150-160SBP, patient denies any pain over chest. R/T at the bedside with patient, WIll continue to monitor.
[2018-12-15] MEDS: LORazepam Inj 2mg/ml 1ml IV PRN ×2 (12:41→22:13)
--- NOTE | 2018-12-15 14:30 | NUR ---
NURSE NOTES: Patient is calm and resting in bed after sedation was given to help relax and help reduce feeling of the ET-tube, patient is sedated and resting but awakes when he is shaken or light pain is stimulated to him, wrist released to assess patient skin around hands which remains intact, pulses are present with hands being warm and pink, will continue plan of care.
--- NOTE | 2018-12-15 16:07 | Internal Med Progress Note ---
Subjective Date of Service: Dec 15, 2018 Physician Name Roni Carson Attending Physician Isaiah Fritz MD Current Medications Medications (Trade) Dose Ordered Sig/Courtney Route PRN Reason Start Time Stop Time Status Last Admin Dose Admin Acetaminophen (Tylenol) 650 mg Q4H PRN ORAL fever 12/04/18 14:00 01/03/19 13:59 12/07/18 19:26 Albuterol/ Ipratropium (Albuterol/ Ipratropium) 3 ml Q4H PRN HHN Shortness of Breath 12/15/18 10:45 12/20/18 10:44 Chlorhexidine Gluconate (Amna-Hex 2%) 1 applic DAILY@2000 TOPIC 12/13/18 20:00 01/12/19 19:59 12/14/18 20:56 Dextrose/ Electrolytes 1,000 ml @ 60 mls/hr [id number] IV 12/15/18 10:52 01/14/19 10:51 12/15/18 13:48 Heparin Sodium (Porcine) (Heparin 5000 units/ml) 5,000 units EVERY 12 HOURS SUBQ 12/04/18 21:00 01/03/19 20:59 12/14/18 20:57 Levothyroxine Sodium (Synthroid) 25 mcg DAILY@0630 ORAL 12/09/18 06:30 01/08/19 06:29 12/15/18 06:01 Lorazepam (Ativan 2mg/ml 1ml) 0.5 mg Q6H PRN IV For Anxiety 12/14/18 15:15 12/21/18 15:14 12/15/18 12:41 Norepinephrine Bitartrate 4 mg/ Dextrose 254 ml @ 0 mls/hr Q24H IV 12/04/18 14:00 01/03/19 13:59 Pantoprazole (Protonix) 40 mg DAILY IVP 12/05/18 09:00 01/04/19 08:59 12/15/18 08:51 Tigecycline 50 mg/ Sodium Chloride 110 ml @ 220 mls/hr EVERY 12 HOURS IVPB 12/10/18 21:00 12/17/18 20:59 12/15/18 08:51 Allergies: Coded Allergies: No Known Allergies (Unverified , 12/04/18) ROS Limited/Unobtainable: Yes Subjective 73 YO M admitted with respiratory failure. Now pneumonia. Intubated and sedated. ICU. Cover for Int Garret-Dr Matthews Objective Last Vital Signs Date Time Temp Pulse Resp B/P (MAP) Pulse Ox O2 Delivery O2 Flow Rate FiO2 12/15/18 15:00 91 22 154/67 (96) 100 12/15/18 14:52 30 12/15/18 12:00 98.2 12/15/18 12:00 Mechanical Ventilator Laboratory Tests Test 12/15/18 05:45 12/15/18 09:01 White Blood Count 15.0 K/UL (4.8-10.8) H Red Blood Count 3.12 M/UL (4.70-6.10) L Hemoglobin 8.0 G/DL (14.2-18.0) L Hematocrit 25.5 % (42.0-52.0) L Mean Corpuscular Volume 82 FL (80-99) Mean Corpuscular Hemoglobin 25.6 PG (27.0-31.0) L Mean Corpuscular Hemoglobin Concent 31.4 G/DL (32.0-36.0) L Red Cell Distribution Width 17.6 % (11.6-14.8) H Platelet Count 317 K/UL (150-450) Mean Platelet Volume 7.9 FL (6.5-10.1) Neutrophils (%) (Auto) 78.0 % (45.0-75.0) H Lymphocytes (%) (Auto) 14.8 % (20.0-45.0) L Monocytes (%) (Auto) 3.8 % (1.0-10.0) Eosinophils (%) (Auto) 2.4 % (0.0-3.0) Basophils (%) (Auto) 0.9 % (0.0-2.0) Sodium Level 146 MMOL/L (136-145) H Potassium Level 4.1 MMOL/L (3.5-5.1) Chloride Level 112 MMOL/L (98-107) H Carbon Dioxide Level 27 MMOL/L (21-32) Anion Gap 8 mmol/L (5-15) Blood Urea Nitrogen 34 mg/dL (7-18) H Creatinine 1.1 MG/DL (0.55-1.30) Estimat Glomerular Filtration Rate mL/min (>60) Glucose Level 157 MG/DL (74-106) H Calcium Level 8.2 MG/DL (8.5-10.1) L Phosphorus Level 3.7 MG/DL (2.5-4.9) Magnesium Level 1.9 MG/DL (1.8-2.4) Total Bilirubin 0.6 MG/DL (0.2-1.0) Aspartate Amino Transf (AST/SGOT) 23 U/L (15-37) Alanine Aminotransferase (ALT/SGPT) 19 U/L (12-78) Alkaline Phosphatase 100 U/L (46-116) Total Protein 7.1 G/DL (6.4-8.2) Albumin 1.4 G/DL (3.4-5.0) L Globulin 5.7 g/dL Albumin/Globulin Ratio 0.2 (1.0-2.7) L Arterial Blood pH 7.467 (7.350-7.450) Arterial Blood Partial Pressure CO2 34.1 mmHg (35.0-45.0) L Arterial Blood Partial Pressure O2 102.4 mmHg (75.0-100.0) H Arterial Blood HCO3 24.1 mmol/L (22.0-26.0) Arterial Blood Oxygen Saturation 97.3 % (95-100) Arterial Blood Base Excess 0.6 (-2-2) Aroldo Test Positive Microbiology Date/Time Source Procedure Growth Status 12/13/18 09:40 Blood Blood Culture - Preliminary NO GROWTH AFTER 24 HOURS Resulted 12/13/18 09:30 Blood Blood Culture - Preliminary NO GROWTH AFTER 24 HOURS Resulted Intake and Output 12/14/18 12/15/18 19:00 07:00 Intake Total 1995.7 ml 1990 ml Output Total 1020 ml 1025 ml Balance 975.7 ml 965 ml Free Water 160 ml IV Total 1115.7 ml 1210 ml Tube Feeding 720 ml 720 ml Other 60 ml Output Urine Total 960 ml 825 ml Stool Total 60 ml 200 ml Objective General Appearance: WD/WN, no apparent distress, lethargic EENT: PERRL/EOMI, normal ENT inspection Neck: non-tender, normal alignment, supple, normal inspection Cardiovascular: normal peripheral pulses, normal rate, regular rhythm, no gallop/murmur, no JVD Respiratory/Chest: Mech vent; chest wall non-tender, respiratory distress, crackles/rales, rhonchi - bilaterally, expiratory wheezing Abdomen: normal bowel sounds, non tender, soft, no organomegaly, no mass Extremities: normal range of motion, non-tender Skin: normal pigmentation, warm/dry Assessment/Plan Problem List: (1) Pneumonia Assessment & Plan: See ID note. Continue tegacycline (2) Anemia Assessment & Plan: S/P tansfusion 2 units PRBC 12/05/18. (3) Elevated troponin Assessment & Plan: See cardiology consult. (4) COPD (chronic obstructive pulmonary disease) (5) HTN (hypertension) Assessment & Plan: Currently on levophed (6) CHF (congestive heart failure) Assessment & Plan: LVEF=55-60% (7) Diabetes mellitus, type II (8) Chronic renal failure Assessment & Plan: See nephrology note. (9) Dysphagia (10) CAD (coronary artery disease) (11) Acute respiratory failure Assessment & Plan: Weaning protocol; Continue mech vent per pulm (12) Hypothyroidism Status: progressing Roni Carson MD Dec 15, 2018 16:07
--- NOTE | 2018-12-15 16:56 | NUR ---
NURSE NOTES: Patient now running on D5 1/2ns with 20KCL running at 60ml/hr. patient remains on restraints for attempting to pull on ETT-tube, he is resting and sedated, he is able to open eyes when shaken and then closes eyes, patient denies any pain, bilateral wrist restraints are in place, skin remains intact with hands warm and pink, will continue to monitor.
--- NOTE | 2018-12-15 19:17 | NUR ---
HAND-OFF: Report given to DARIANA Young.
--- NOTE | 2018-12-15 19:30 | NUR ---
NURSE NOTES: Received pt in no acute distress. Asleep but arousable to name. Remains oraly intubated and appears to be tolerating current vent settings; fio2 .30, saturating 100%. Still with copious secretions via ETT, white, frothy; breath sounds with scattered rhonchi. SR/ST on the monitor. GTF with Jevity 1.2 continues at 60ml/h with 0 residuals. PICC on BRADLEY intact, dressing celan and dry; IVF of D51/2NS with 20meqKCL running at 60ml/h. Andrade cath patent. Rectal tube with small amt of leak. Irrigated. Noted a skin erosion on left buttock area. Photo taken and ordered P-200 bed. Dressed wound using Triad cream and covered with optifoam. Off loaded buttocks. Will continue to monitor
[2018-12-15] MEDS: Dyna-Hex 2% Top Sol 2oz TOPIC SCH (19:54)
--- NOTE | 2018-12-15 22:15 | NUR ---
NURSE NOTES: Grimacing. BP elevated to 170 systolic. Ativan 0.5 mg given IVP
[2018-12-16] VITALS (24 sets, daily range): BP systolic 132–161; BP diastolic 54–81
--- NOTE | 2018-12-16 | NUR ---
NURSE NOTES: sleeping, no distress; VSS.
--- NOTE | 2018-12-16 02:00 | NUR ---
NURSE NOTES: Calm, asleep; no distress; VSS.
--- NOTE | 2018-12-16 04:00 | NUR ---
NURSE NOTES: Complete bath rendered. Reirrigated rectal tube; no further leaks. Skin excrotiation on rectal/perianal areas applied with Triad cream. Reanchored yeung. PICC patent. NSR ,Bp stable. Tolerating GTF and current vent settings.
[2018-12-16] MEDS: D5 1/2NS w/KCl 20mEq 1,000 ML IV SCH ×2 (05:21→12:53)
[2018-12-16 06:06] LABS: BASOPHILS % (AUTO) 0.7 % (0.0-2.0); EOSINOPHILS % (AUTO) 4.8 % (0.0-3.0); LYMPHOCYTES % (AUTO) 17.2 % (20.0-45.0); MEAN CORPUSCULAR VOLUME 82 FL (80-99); MONOCYTES % (AUTO) 4.1 % (1.0-10.0); NEUTROPHILS % (AUTO) 73.2 % (45.0-75.0); PLATELET COUNT 268 K/UL (150-450); RED BLOOD COUNT 3.17 M/UL (4.70-6.10); RED CELL DISTRIBUTION WIDTH 17.3 % (11.6-14.8); WHITE BLOOD COUNT 12.7 K/UL (4.8-10.8)
[2018-12-16 06:28] LABS: ANION GAP 7 mmol/L (5-15); BLOOD UREA NITROGEN 29 mg/dL (7-18); CALCIUM 8.3 MG/DL (8.5-10.1); CARBON DIOXIDE 26 MMOL/L (21-32); CHLORIDE 111 MMOL/L (98-107); CREATININE 0.9 MG/DL (0.55-1.30); POTASSIUM 4.5 MMOL/L (3.5-5.1); SODIUM 144 MMOL/L (136-145)
[2018-12-16] MEDS: Levothyroxine 25mcg tab ORAL SCH (06:43)
--- NOTE | 2018-12-16 07:09 | NUR ---
HAND-OFF: Report given to Misti Stevens RN.NURSE NOTES:
--- NOTE | 2018-12-16 07:32 | NUR ---
RESPIRATORY NOTE: Patient received mechanically ventilated on PB 840 with current ordered vent settings. Patient has oral EET tube size 8.0 wiht 23cm at the lip line that is secured with anchor fast. There are bilateral coarse breath sounds present upon auscultation and moderate amount of thick white/clear secretions were suctioned via inline suction system without incident. There is an ambu bag available at the bedside and the vent is connected to a red outlet. Vent alarms are functional and audible. Will continue to monitor.
--- NOTE | 2018-12-16 07:45 | NUR ---
NURSE NOTES: Patient is calm and awake in bed, patient informed RT will be rounding to attempt another weaning trail and hopefully remove ET-tube, patient is receptive of the possibility et-tube will be removed, he currently remain on restraints bilaterally for attempting to reach and pull et-tube, his picc line remains patent with no swelling and leaking noted, skin around wrist remains intact, will continue to monitor.
--- NOTE | 2018-12-16 08:30 | Pulmonolgy Critical Care Note ---
Critical Care - Asmt/Plan Assessment/Plan: ASSESSMENT Acute hypoxemic respiratory failure, requiring intubation Septic shock -resolved Sepsis PNA possible UTI with proteus ESBL ( small colony count) Dysphagia , G-tube feeding Acute tubular necrosis-resolved COPD Diabetes mellitus type 2 Hypothyroidism History of hypertension PLAN OF CARE ICU status Vent support Pulmonary toilet ABG stable on current settings weaning protocol as tolerated fup with chest x-ray and ABG CT chest pending abx as per ID stool C. difficile negative , sputum culture ACB MDR , influenza screen test negative blood culture prel negative urine cx Proteus ESBL with small colony count cardio follows Echo with pEF venous duplex BLE negative supportive care bowel regimen DVT/ GI prophylaxis hemodynamic status better, BP stable monitor renal parameters and lytes, correct electrolytes as needed, avoid nephrotoxic creatinine stable decrease IVF rate to 50 , Na stable after increase in free water flushes strict aspiration precaution G-tube feeding monitor tolerance BS management with SSI supportive care case discussed and evaluated by supervising physician Critical Care - Objective Last 24 Hour Vital Signs Date Time Temp Pulse Resp B/P (MAP) Pulse Ox O2 Delivery O2 Flow Rate FiO2 12/16/18 07:27 87 22 30 12/16/18 07:00 80 18 141/62 (88) 100 12/16/18 06:00 82 18 132/69 (90) 100 12/16/18 05:00 87 19 137/77 (97) 100 12/16/18 05:00 90 20 30 12/16/18 04:04 30 12/16/18 04:03 Mechanical Ventilator 12/16/18 04:03 80 12/16/18 04:00 99.2 86 19 135/75 (95) 100 12/16/18 03:00 90 20 136/62 (86) 100 12/16/18 02:42 92 20 30 12/16/18 02:00 87 18 153/70 (97) 100 12/16/18 01:00 90 20 140/59 (86) 100 12/16/18 00:30 91 22 30 12/16/18 00:00 99.3 88 19 161/62 (95) 100 12/16/18 00:00 30 12/16/18 00:00 Mechanical Ventilator 12/16/18 00:00 88 12/15/18 23:00 91 23 164/64 (97) 100 12/15/18 22:30 90 17 30 12/15/18 22:00 94 20 163/80 (107) 100 12/15/18 21:00 96 24 162/96 (118) 100 12/15/18 20:55 99 24 30 12/15/18 20:00 112 12/15/18 20:00 30 12/15/18 20:00 Mechanical Ventilator 12/15/18 20:00 99.5 104 24 154/82 (106) 100 12/15/18 19:00 104 24 161/67 (98) 100 12/15/18 18:42 106 24 30 12/15/18 18:00 92 22 155/65 (95) 100 12/15/18 17:06 90 21 30 12/15/18 17:00 103 23 151/79 (103) 100 12/15/18 16:00 93 12/15/18 16:00 30 12/15/18 16:00 Mechanical Ventilator 12/15/18 16:00 99.8 99 26 147/62 (90) 100 12/15/18 15:00 91 22 154/67 (96) 100 12/15/18 14:52 92 23 30 12/15/18 14:00 90 21 158/76 (103) 100 12/15/18 14:00 158/76 12/15/18 13:10 88 20 30 12/15/18 13:00 93 22 123/72 (89) 100 12/15/18 12:15 30 12/15/18 12:00 99 12/15/18 12:00 30 12/15/18 12:00 98.2 99 31 160/92 (114) 100 12/15/18 12:00 Mechanical Ventilator 12/15/18 11:00 97 31 157/81 (106) 100 12/15/18 11:00 30 12/15/18 10:48 100 12/15/18 10:44 93 23 30 12/15/18 10:00 98 21 145/110 (122) 100 12/15/18 09:00 93 20 129/72 (91) 100 12/15/18 08:52 103 21 30 Objective: Status: intubated, on vent AC, in NAD Condition: critical HEENT: atraumatic, normocephalic, OP with ET in place, intact Lungs: clear with moderate air intake Heart: HR/BP stable, PICC LUE intact Abdomen: active bowel sounds, G tube with TF Extremities: no edema Micro: Microbiology Date/Time Source Procedure Growth Status 12/13/18 09:40 Blood Blood Culture - Preliminary NO GROWTH AFTER 48 HOURS Resulted 12/13/18 09:30 Blood Blood Culture - Preliminary NO GROWTH AFTER 48 HOURS Resulted Accucheck: 101 Critical Care - Subjective ROS Limited/Unobtainable: Yes Interval Events: afebrile, leuk with trend down, no signs of resp distress on current setting not tolerated weaning yesterday Condition: critical IV Access: PICC - LUE intact EKG Rhythm: Sinus Rhythm FI02: 30 Vent Support Breath Rate: 16 Vent Support Mode: AC Vent Tidal Volume: 600 Sputum Amount: Moderate PEEP: 0.0 PIP: 18 Fluids: D51/2 NS + 20 KCL at 60 Tube Feeding Amount: 60 I&O: Intake and Output 12/15/18 12/16/18 19:00 07:00 Intake Total 1850 ml 1460 ml Output Total 1285 ml 1270 ml Balance 565 ml 190 ml IV Total 1100 ml 710 ml Tube Feeding 720 ml 720 ml Other 30 ml 30 ml Output Urine Total 1235 ml 1170 ml Stool Total 50 ml 100 ml CXR: 12/15 1. Worsening bilateral interstitial and airspace opacities, especially in the right lower lobe. 2. Probable tiny right pleural effusion. ET-Tube: 8.0 ET Position: 23 Bindu Callahan NP Dec 16, 2018 08:30
[2018-12-16] MEDS: Heparin 5000 units/ml inj SUBQ SCH ×2 (09:00→20:48)
--- NOTE | 2018-12-16 09:30 | NUR ---
NURSE NOTES: Patient started on weaning trail with setting of CPAP on PS of 8 and FIO2 of 30%, patient is breathing with RR of 22-27 with no distress noted, he is able to initiate volumes of 500ml, patient remains awake and alert, he is able to answer questions and use gestures to make needs known, remains tolarating tube feeding on Jenity at 60ml/hr with no residual noted, will continue to monitor.
[2018-12-16] MEDS: Pantoprazole Inj IVP SCH (09:59)
[2018-12-16] MEDS: Tigecycline 50 MG in NS 110 ML IVPB SCH ×2 (09:59→20:43)
--- NOTE | 2018-12-16 10:13 | Infectious Diseases Prog Note ---
Assessment/Plan Assessment/Plan Assessment: Severe Sepsis- likely 2ry to PNA, r/o bacteremia, UTI. Possible Flu despite neg screen test -CXR: Bilateral diffuse interstitial and airspace infiltrates versus edema, worsening on the right over one day -Bcx NTD -u/a wbc 40-60, nit neg, leuk large; ucx 10-20 k P. mirablis ESBL (S Meropenem, Zosyn) -sp cx MDR ABC (S Tigecycline) -influenza sc, legionela ag urine neg Fever, SP Leukocytosis improving -Cdiff neg Acute respiratory failure s/p intubation 12/04 ELICIA, improving COPD DM2 HTN dysphagia s/p G-tube dementia SNF resident Plan: - Continue Tigecycline #7/7-10 for Acinetobacter -12/13 SP INH colistin #1 -12/10/18 IV Vancomycin #7 and Meropenem #6 for PNA and UTI -12/10 SP Tamiflu #6 -12/05 AMikacin and Ertapenem #2 -12/07/18 SP empiric Azithromycin #3 -f/u cx -Monitor CBC/CMP, temperatures -ICU, ETT care -aspiration precautions Will continue to follow along with you. Subjective Allergies: Coded Allergies: No Known Allergies (Unverified , 12/04/18) Subjective afebrile Bcx NTD wbc improving Objective Vital Signs Last 24 Hour Vital Signs Date Time Temp Pulse Resp B/P (MAP) Pulse Ox O2 Delivery O2 Flow Rate FiO2 12/16/18 07:27 87 22 30 12/16/18 07:00 80 18 141/62 (88) 100 12/16/18 06:00 82 18 132/69 (90) 100 12/16/18 05:00 87 19 137/77 (97) 100 12/16/18 05:00 90 20 30 12/16/18 04:04 30 12/16/18 04:03 Mechanical Ventilator 12/16/18 04:03 80 12/16/18 04:00 99.2 86 19 135/75 (95) 100 12/16/18 03:00 90 20 136/62 (86) 100 12/16/18 02:42 92 20 30 12/16/18 02:00 87 18 153/70 (97) 100 12/16/18 01:00 90 20 140/59 (86) 100 12/16/18 00:30 91 22 30 12/16/18 00:00 99.3 88 19 161/62 (95) 100 12/16/18 00:00 30 12/16/18 00:00 Mechanical Ventilator 12/16/18 00:00 88 12/15/18 23:00 91 23 164/64 (97) 100 12/15/18 22:30 90 17 30 12/15/18 22:00 94 20 163/80 (107) 100 12/15/18 21:00 96 24 162/96 (118) 100 12/15/18 20:55 99 24 30 12/15/18 20:00 112 12/15/18 20:00 30 12/15/18 20:00 Mechanical Ventilator 12/15/18 20:00 99.5 104 24 154/82 (106) 100 12/15/18 19:00 104 24 161/67 (98) 100 12/15/18 18:42 106 24 30 12/15/18 18:00 92 22 155/65 (95) 100 12/15/18 17:06 90 21 30 12/15/18 17:00 103 23 151/79 (103) 100 12/15/18 16:00 93 12/15/18 16:00 30 12/15/18 16:00 Mechanical Ventilator 12/15/18 16:00 99.8 99 26 147/62 (90) 100 12/15/18 15:00 91 22 154/67 (96) 100 12/15/18 14:52 92 23 30 12/15/18 14:00 90 21 158/76 (103) 100 12/15/18 14:00 158/76 12/15/18 13:10 88 20 30 12/15/18 13:00 93 22 123/72 (89) 100 12/15/18 12:15 30 12/15/18 12:00 99 12/15/18 12:00 30 12/15/18 12:00 98.2 99 31 160/92 (114) 100 12/15/18 12:00 Mechanical Ventilator 12/15/18 11:00 97 31 157/81 (106) 100 12/15/18 11:00 30 12/15/18 10:48 100 12/15/18 10:44 93 23 30 Height (Feet): 5 Height (Inches): 7.00 Weight (Pounds): 159 Objective Status: awake Condition: critical HEENT: atraumatic Neck: full ROM Lungs: clear Heart: HR/BP stable Abdomen: soft, active bowel sounds Extremities: no C/C/E Decubiti: location Laboratory Tests Test 12/16/18 04:00 12/16/18 08:00 White Blood Count 12.7 K/UL (4.8-10.8) H Red Blood Count 3.17 M/UL (4.70-6.10) L Hemoglobin 8.0 G/DL (14.2-18.0) L Hematocrit 26.0 % (42.0-52.0) L Mean Corpuscular Volume 82 FL (80-99) Mean Corpuscular Hemoglobin 25.2 PG (27.0-31.0) L Mean Corpuscular Hemoglobin Concent 30.7 G/DL (32.0-36.0) L Red Cell Distribution Width 17.3 % (11.6-14.8) H Platelet Count 268 K/UL (150-450) Mean Platelet Volume 8.6 FL (6.5-10.1) Neutrophils (%) (Auto) 73.2 % (45.0-75.0) Lymphocytes (%) (Auto) 17.2 % (20.0-45.0) L Monocytes (%) (Auto) 4.1 % (1.0-10.0) Eosinophils (%) (Auto) 4.8 % (0.0-3.0) H Basophils (%) (Auto) 0.7 % (0.0-2.0) Sodium Level 144 MMOL/L (136-145) Potassium Level 4.5 MMOL/L (3.5-5.1) Chloride Level 111 MMOL/L (98-107) H Carbon Dioxide Level 26 MMOL/L (21-32) Anion Gap 7 mmol/L (5-15) Blood Urea Nitrogen 29 mg/dL (7-18) H Creatinine 0.9 MG/DL (0.55-1.30) Estimat Glomerular Filtration Rate mL/min (>60) Glucose Level 122 MG/DL (74-106) H Calcium Level 8.3 MG/DL (8.5-10.1) L Arterial Blood pH 7.446 (7.350-7.450) Arterial Blood Partial Pressure CO2 34.1 mmHg (35.0-45.0) L Arterial Blood Partial Pressure O2 108.9 mmHg (75.0-100.0) H Arterial Blood HCO3 23.0 mmol/L (22.0-26.0) Arterial Blood Oxygen Saturation 97.0 % (95-100) Arterial Blood Base Excess -0.8 (-2-2) Aroldo Test Positive Current Medications Medications (Trade) Dose Ordered Sig/Courtney Route PRN Reason Start Time Stop Time Status Last Admin Dose Admin Acetaminophen (Tylenol) 650 mg Q4H PRN ORAL fever 12/04/18 14:00 01/03/19 13:59 12/07/18 19:26 Albuterol/ Ipratropium (Albuterol/ Ipratropium) 3 ml Q4H PRN HHN Shortness of Breath 12/15/18 10:45 12/20/18 10:44 Chlorhexidine Gluconate (Amna-Hex 2%) 1 applic DAILY@2000 TOPIC 12/13/18 20:00 01/12/19 19:59 12/15/18 19:54 Dextrose/ Electrolytes 1,000 ml @ 60 mls/hr [id number] IV 12/15/18 10:52 01/14/19 10:51 12/16/18 05:21 Heparin Sodium (Porcine) (Heparin 5000 units/ml) 5,000 units EVERY 12 HOURS SUBQ 12/04/18 21:00 01/03/19 20:59 12/15/18 20:27 Levothyroxine Sodium (Synthroid) 25 mcg DAILY@0630 ORAL 12/09/18 06:30 01/08/19 06:29 12/16/18 06:43 Lorazepam (Ativan 2mg/ml 1ml) 0.5 mg Q6H PRN IV For Anxiety 12/14/18 15:15 12/21/18 15:14 12/15/18 22:13 Norepinephrine Bitartrate 4 mg/ Dextrose 254 ml @ 0 mls/hr Q24H IV 12/04/18 14:00 01/03/19 13:59 Pantoprazole (Protonix) 40 mg DAILY IVP 12/05/18 09:00 01/04/19 08:59 12/16/18 09:59 Tigecycline 50 mg/ Sodium Chloride 110 ml @ 220 mls/hr EVERY 12 HOURS IVPB 12/10/18 21:00 12/17/18 20:59 12/16/18 09:59 Jazz Alexander M.D. Dec 16, 2018 10:12
--- NOTE | 2018-12-16 10:30 | NUR ---
NURSE NOTES: Dr. Car updated on patient condition at the bedside, order for levophed remains but patient SBP remains above 100, no verbal orders given at this time,
--- NOTE | 2018-12-16 10:35 | Diagnostic Imaging Report ---
EXAM: XR Chest, 1 View CLINICAL HISTORY: SOB TECHNIQUE: Frontal view of the chest. COMPARISON: Chest x-ray 12/15/18 at 8:00 FINDINGS: Lungs: Bilateral airspace and interstitial opacities are unchanged. Pleural space: Stable tiny right pleural effusion. No pneumothorax. Heart: Unremarkable. No cardiomegaly. Mediastinum: Unremarkable. Bones/joints: Unremarkable. Tubes, lines and devices: Stable endotracheal tube and left PICC line. IMPRESSION: 1. Bilateral airspace and interstitial opacities are unchanged. 2. Stable tiny right pleural effusion.
[2018-12-16] MEDS ORDERED: Sterile Water Irrig 1000ml IRRIG ONE (10:46)
[2018-12-16] MEDS ORDERED: 1/2 NS 1000ml IV ONE (10:46)
[2018-12-16] MEDS ORDERED: NS 275ml ONE (10:46)
--- NOTE | 2018-12-16 12:05 | NUR ---
NURSE NOTES: Patient tolerating weaning trial and returned to AC: 16, TV: 600, FIO2 of 30% FIO2, he remained on CPAP with PS of 8 for approximately 3hrs with no distress noted, patient denies feeling tired or SOB, he was able to cough secretions, Bindu patel informed of abg result and ordered to have patient placed back on ac setting, will wean int the am on 12/17/18, will continue to monitor.
--- NOTE | 2018-12-16 12:17 | Cardiology Progress Note ---
Assessment/Plan Status: stable Assessment/Plan Assessment/Plan Assessment/Plan 1. Respiratory failure with elevated BNP. His echocardiogram showed ejection fraction of 55% to 60% with diastolic dysfunction. 2. Pneumonia, respiratory failure on the ventilator as well as on broad- spectrum IV antibiotic, CXR with continued right sided infiltrate, CT CHEST PENDING 3. Hypertension. continue lisinopril 20 mg b.i.d. Hydralazine prn 4. Severe sepsis, likely due to pneumonia and bacteremia. Continue abx per ID 5. Diabetes 6. Dysphagia, status post PEG placement, tolerating feeds, no residuals 7. Azotemia - DC Lasix due to rising BUN, monitor I/O and renal function. replete electrolytes Subjective Cardiovascular: Reports: no symptoms Respiratory: Reports: no symptoms Gastrointestinal/Abdominal: Reports: no symptoms Genitourinary: Reports: no symptoms Subjective Coverage for [place] No acute events, vent settings stable, tolerating feeds, WBC persistently elevated, CXR with no improvement, no fevers, WBC stable, PICC line inserted, CT chest pending Objective Last 24 Hour Vital Signs Date Time Temp Pulse Resp B/P (MAP) Pulse Ox O2 Delivery O2 Flow Rate FiO2 12/16/18 11:04 92 29 30 12/16/18 09:19 99 12/16/18 09:16 82 16 30 12/16/18 07:27 87 22 30 12/16/18 07:00 80 18 141/62 (88) 100 12/16/18 06:00 82 18 132/69 (90) 100 12/16/18 05:00 87 19 137/77 (97) 100 12/16/18 05:00 90 20 30 12/16/18 04:04 30 12/16/18 04:03 Mechanical Ventilator 12/16/18 04:03 80 12/16/18 04:00 99.2 86 19 135/75 (95) 100 12/16/18 03:00 90 20 136/62 (86) 100 12/16/18 02:42 92 20 30 12/16/18 02:00 87 18 153/70 (97) 100 12/16/18 01:00 90 20 140/59 (86) 100 12/16/18 00:30 91 22 30 12/16/18 00:00 99.3 88 19 161/62 (95) 100 2/3/19 00:00 30 12/16/18 00:00 Mechanical Ventilator 12/16/18 00:00 88 12/15/18 23:00 91 23 164/64 (97) 100 12/15/18 22:30 90 17 30 12/15/18 22:00 94 20 163/80 (107) 100 12/15/18 21:00 96 24 162/96 (118) 100 12/15/18 20:55 99 24 30 12/15/18 20:00 112 12/15/18 20:00 30 12/15/18 20:00 Mechanical Ventilator 12/15/18 20:00 99.5 104 24 154/82 (106) 100 12/15/18 19:00 104 24 161/67 (98) 100 12/15/18 18:42 106 24 30 12/15/18 18:00 92 22 155/65 (95) 100 12/15/18 17:06 90 21 30 12/15/18 17:00 103 23 151/79 (103) 100 12/15/18 16:00 93 12/15/18 16:00 30 12/15/18 16:00 Mechanical Ventilator 12/15/18 16:00 99.8 99 26 147/62 (90) 100 12/15/18 15:00 91 22 154/67 (96) 100 12/15/18 14:52 92 23 30 12/15/18 14:00 90 21 158/76 (103) 100 12/15/18 14:00 158/76 12/15/18 13:10 88 20 30 12/15/18 13:00 93 22 123/72 (89) 100 General Appearance: no apparent distress, on vent EENT: PERRL/EOMI, normal ENT inspection, TMs normal Neck: non-tender, normal alignment, supple, normal inspection Rhythm: NSR, ST, PACs Cardiovascular: tachycardia Respiratory/Chest: decreased breath sounds, accessory muscle use, crackles/ rales Abdomen: normal bowel sounds, non tender, soft, no organomegaly Extremities: normal range of motion, non-tender, normal inspection Neurologic: braille transcriber II-XII grossly normal Intake and Output 12/15/18 12/16/18 18:59 06:59 Intake Total 1790 ml 1520 ml Output Total 1260 ml 1245 ml Balance 530 ml 275 ml IV Total 1040 ml 770 ml Tube Feeding 720 ml 720 ml Other 30 ml 30 ml Output Urine Total 1210 ml 1145 ml Stool Total 50 ml 100 ml Laboratory Tests Test 12/16/18 04:00 12/16/18 08:00 12/16/18 11:19 White Blood Count 12.7 K/UL (4.8-10.8) H Red Blood Count 3.17 M/UL (4.70-6.10) L Hemoglobin 8.0 G/DL (14.2-18.0) L Hematocrit 26.0 % (42.0-52.0) L Mean Corpuscular Volume 82 FL (80-99) Mean Corpuscular Hemoglobin 25.2 PG (27.0-31.0) L Mean Corpuscular Hemoglobin Concent 30.7 G/DL (32.0-36.0) L Red Cell Distribution Width 17.3 % (11.6-14.8) H Platelet Count 268 K/UL (150-450) Mean Platelet Volume 8.6 FL (6.5-10.1) Neutrophils (%) (Auto) 73.2 % (45.0-75.0) Lymphocytes (%) (Auto) 17.2 % (20.0-45.0) L Monocytes (%) (Auto) 4.1 % (1.0-10.0) Eosinophils (%) (Auto) 4.8 % (0.0-3.0) H Basophils (%) (Auto) 0.7 % (0.0-2.0) Sodium Level 144 MMOL/L (136-145) Potassium Level 4.5 MMOL/L (3.5-5.1) Chloride Level 111 MMOL/L (98-107) H Carbon Dioxide Level 26 MMOL/L (21-32) Anion Gap 7 mmol/L (5-15) Blood Urea Nitrogen 29 mg/dL (7-18) H Creatinine 0.9 MG/DL (0.55-1.30) Estimat Glomerular Filtration Rate mL/min (>60) Glucose Level 122 MG/DL (74-106) H Calcium Level 8.3 MG/DL (8.5-10.1) L Arterial Blood pH 7.446 (7.350-7.450) 7.434 (7.350-7.450) Arterial Blood Partial Pressure CO2 34.1 mmHg (35.0-45.0) L 37.9 mmHg (35.0-45.0) Arterial Blood Partial Pressure O2 108.9 mmHg (75.0-100.0) H 109.4 mmHg (75.0-100.0) H Arterial Blood HCO3 23.0 mmol/L (22.0-26.0) 24.8 mmol/L (22.0-26.0) Arterial Blood Oxygen Saturation 97.0 % (95-100) 97.3 % (95-100) Arterial Blood Base Excess -0.8 (-2-2) 0.6 (-2-2) Aroldo Test Positive Positive Rayo Car MD Dec 16, 2018 12:17
--- NOTE | 2018-12-16 15:30 | NUR ---
NURSE NOTES: patient is awake and alert wanting to watch the super bowl, he was repositioned and suctioned, patient running fluids at 50ml/hr with tube feeding at 60ml/hr though G-tube, will continue to monitor.
--- NOTE | 2018-12-16 16:00 | Internal Med Progress Note ---
Subjective Date of Service: Dec 16, 2018 Physician Name Roni Carson Attending Physician Isaiah Fritz MD Current Medications Medications (Trade) Dose Ordered Sig/Courtney Route PRN Reason Start Time Stop Time Status Last Admin Dose Admin Acetaminophen (Tylenol) 650 mg Q4H PRN ORAL fever 12/04/18 14:00 01/03/19 13:59 12/07/18 19:26 Albuterol/ Ipratropium (Albuterol/ Ipratropium) 3 ml Q4H PRN HHN Shortness of Breath 12/15/18 10:45 12/20/18 10:44 Chlorhexidine Gluconate (Amna-Hex 2%) 1 applic DAILY@2000 TOPIC 12/13/18 20:00 01/12/19 19:59 12/15/18 19:54 Dextrose/ Electrolytes 1,000 ml @ 50 mls/hr Q20H IV 12/16/18 12:00 01/14/19 11:59 12/16/18 12:53 Heparin Sodium (Porcine) (Heparin 5000 units/ml) 5,000 units EVERY 12 HOURS SUBQ 12/04/18 21:00 01/03/19 20:59 12/15/18 20:27 Levothyroxine Sodium (Synthroid) 25 mcg DAILY@0630 ORAL 12/09/18 06:30 01/08/19 06:29 12/16/18 06:43 Lorazepam (Ativan 2mg/ml 1ml) 0.5 mg Q6H PRN IV For Anxiety 12/14/18 15:15 12/21/18 15:14 12/15/18 22:13 Norepinephrine Bitartrate 4 mg/ Dextrose 254 ml @ 0 mls/hr Q24H IV 12/04/18 14:00 01/03/19 13:59 Pantoprazole (Protonix) 40 mg DAILY IVP 12/05/18 09:00 01/04/19 08:59 12/16/18 09:59 Tigecycline 50 mg/ Sodium Chloride 110 ml @ 220 mls/hr EVERY 12 HOURS IVPB 12/10/18 21:00 12/19/18 20:59 12/16/18 09:59 Allergies: Coded Allergies: No Known Allergies (Unverified , 12/04/18) ROS Limited/Unobtainable: Yes Subjective 73 YO M admitted with respiratory failure. Now pneumonia. Intubated and sedated. ICU. Cover for Int Garret-Dr Matthews Objective Last Vital Signs Date Time Temp Pulse Resp B/P (MAP) Pulse Ox O2 Delivery O2 Flow Rate FiO2 12/16/18 15:00 91 23 141/67 (91) 100 12/16/18 14:53 30 12/16/18 12:00 98.9 12/16/18 12:00 Mechanical Ventilator Laboratory Tests Test 12/16/18 04:00 12/16/18 08:00 12/16/18 11:19 White Blood Count 12.7 K/UL (4.8-10.8) H Red Blood Count 3.17 M/UL (4.70-6.10) L Hemoglobin 8.0 G/DL (14.2-18.0) L Hematocrit 26.0 % (42.0-52.0) L Mean Corpuscular Volume 82 FL (80-99) Mean Corpuscular Hemoglobin 25.2 PG (27.0-31.0) L Mean Corpuscular Hemoglobin Concent 30.7 G/DL (32.0-36.0) L Red Cell Distribution Width 17.3 % (11.6-14.8) H Platelet Count 268 K/UL (150-450) Mean Platelet Volume 8.6 FL (6.5-10.1) Neutrophils (%) (Auto) 73.2 % (45.0-75.0) Lymphocytes (%) (Auto) 17.2 % (20.0-45.0) L Monocytes (%) (Auto) 4.1 % (1.0-10.0) Eosinophils (%) (Auto) 4.8 % (0.0-3.0) H Basophils (%) (Auto) 0.7 % (0.0-2.0) Sodium Level 144 MMOL/L (136-145) Potassium Level 4.5 MMOL/L (3.5-5.1) Chloride Level 111 MMOL/L (98-107) H Carbon Dioxide Level 26 MMOL/L (21-32) Anion Gap 7 mmol/L (5-15) Blood Urea Nitrogen 29 mg/dL (7-18) H Creatinine 0.9 MG/DL (0.55-1.30) Estimat Glomerular Filtration Rate mL/min (>60) Glucose Level 122 MG/DL (74-106) H Calcium Level 8.3 MG/DL (8.5-10.1) L Arterial Blood pH 7.446 (7.350-7.450) 7.434 (7.350-7.450) Arterial Blood Partial Pressure CO2 34.1 mmHg (35.0-45.0) L 37.9 mmHg (35.0-45.0) Arterial Blood Partial Pressure O2 108.9 mmHg (75.0-100.0) H 109.4 mmHg (75.0-100.0) H Arterial Blood HCO3 23.0 mmol/L (22.0-26.0) 24.8 mmol/L (22.0-26.0) Arterial Blood Oxygen Saturation 97.0 % (95-100) 97.3 % (95-100) Arterial Blood Base Excess -0.8 (-2-2) 0.6 (-2-2) Aroldo Test Positive Positive Intake and Output 12/15/18 12/16/18 19:00 07:00 Intake Total 1850 ml 1520 ml Output Total 1285 ml 1270 ml Balance 565 ml 250 ml IV Total 1100 ml 770 ml Tube Feeding 720 ml 720 ml Other 30 ml 30 ml Output Urine Total 1235 ml 1170 ml Stool Total 50 ml 100 ml Objective General Appearance: WD/WN, no apparent distress, lethargic EENT: PERRL/EOMI, normal ENT inspection Neck: non-tender, normal alignment, supple, normal inspection Cardiovascular: normal peripheral pulses, normal rate, regular rhythm, no gallop/murmur, no JVD Respiratory/Chest: Mech vent; chest wall non-tender, respiratory distress, crackles/rales, rhonchi - bilaterally, expiratory wheezing Abdomen: normal bowel sounds, non tender, soft, no organomegaly, no mass Extremities: normal range of motion, non-tender Skin: normal pigmentation, warm/dry Assessment/Plan Problem List: (1) Pneumonia Assessment & Plan: See ID note. Continue tegacycline (2) Anemia Assessment & Plan: S/P tansfusion 2 units PRBC 12/05/18. (3) Elevated troponin Assessment & Plan: See cardiology consult. (4) COPD (chronic obstructive pulmonary disease) (5) HTN (hypertension) Assessment & Plan: Currently on levophed (6) CHF (congestive heart failure) Assessment & Plan: LVEF=55-60% (7) Diabetes mellitus, type II (8) Chronic renal failure Assessment & Plan: See nephrology note. (9) Dysphagia (10) CAD (coronary artery disease) (11) Acute respiratory failure Assessment & Plan: Weaning protocol; Continue mech vent per pulm (12) Hypothyroidism Status: not improved Roni Carson MD Dec 16, 2018 16:00
--- NOTE | 2018-12-16 19:25 | NUR ---
HAND-OFF: Report given to DARIANA Valdez.
--- NOTE | 2018-12-16 19:26 | NUR ---
NURSE NOTES: Endorsement received from DARIANA Cade. Patient opens eyes spontaneously, follows simple commands. Orally intubated with 8.0. 23 lipline. AC 16, Vt 600, 30%. No shortness of breath. With left upper arm PICC, ongoing D5 1/2 NS + KCl 50 ml/hr. With PEG, patent and intact. Ongoing Jevity 1.2, no residual. Rectal tube draining per gravity. With Andrade F16 connected to urimeter. Bilateral soft wrist restraints for attempting to pull out tubes. Head of bed elevated. Bed locked and in low position. Bed alarm on. On P200 mattress.
--- NOTE | 2018-12-16 19:37 | NUR ---
RESPIRATORY NOTE: Received pt. on 840 vent. Vent settings are: A/C rate of 16, Vt 600, FI02 30%. No respiratory distress noted, pt Sp02 @ 100%. Yelena art @ BS. Will continue to monitor pt.
[2018-12-16] MEDS: Dyna-Hex 2% Top Sol 2oz TOPIC SCH (19:44)
--- NOTE | 2018-12-16 21:00 | NUR ---
NURSE NOTES: Secretions suctioned. Oral care done. No shortness of breath.
--- NOTE | 2018-12-16 23:00 | NUR ---
NURSE NOTES: Patient tolerating feeding. No pain or discomfort.
[2018-12-17] VITALS (24 sets, daily range): BP systolic 119–185; BP diastolic 47–82
--- NOTE | 2018-12-17 01:00 | NUR ---
NURSE NOTES: Noted some leaking from the rectal tube. Bed bath, oral care, change of dressings, change of linens done.
--- NOTE | 2018-12-17 03:00 | NUR ---
NURSE NOTES: Patient asleep. Vital signs stable.
--- NOTE | 2018-12-17 05:00 | NUR ---
NURSE NOTES: Secretions suctioned. Sary care done.
--- NOTE | 2018-12-17 05:30 | NUR ---
NURSE NOTES: Tube feeding turned off for synthroid.
[2018-12-17] MEDS: Levothyroxine 25mcg tab ORAL SCH (05:46)
[2018-12-17 05:47] LABS: BASOPHILS % (AUTO) 0.8 % (0.0-2.0); EOSINOPHILS % (AUTO) 5.1 % (0.0-3.0); HEMATOCRIT 25.3 % (42.0-52.0); HEMOGLOBIN 8.1 G/DL (14.2-18.0); LYMPHOCYTES % (AUTO) 17.4 % (20.0-45.0); MEAN CORPUSCULAR VOLUME 81 FL (80-99); MONOCYTES % (AUTO) 3.7 % (1.0-10.0); PLATELET COUNT 248 K/UL (150-450); RED BLOOD COUNT 3.14 M/UL (4.70-6.10); RED CELL DISTRIBUTION WIDTH 17.6 % (11.6-14.8)
[2018-12-17 06:28] LABS: ANION GAP 8 mmol/L (5-15); BLOOD UREA NITROGEN 30 mg/dL (7-18); CARBON DIOXIDE 25 MMOL/L (21-32); CHLORIDE 108 MMOL/L (98-107); POTASSIUM 4.8 MMOL/L (3.5-5.1); SODIUM 141 MMOL/L (136-145)
--- NOTE | 2018-12-17 07:06 | NUR ---
HAND-OFF: Report given to DARIANA Eldridge.
--- NOTE | 2018-12-17 07:20 | NUR ---
NURSE NOTES: Report received from Elana WESTBROOK. Pt awake, alert and oriented x 3, able to follow commands. Pt connected to monument erector, SR. Pt orally intubated ETT 8, 23 cm lip line, AC 16, TV 600, 30% fiO2, 0 PEEP. GTF Jevity 60 cc/hr. Rectal tube intact and draining liquid stool to gravity. Andrade noted and intact draining clear yellow urine to gravity. BRADLEY PICC with D5 1/2 +20K running. Bilateral soft wrist restraints intact. Pt attempting to pull lines and tubes. Safety measures in place with bed locked and in lowest position, side rails x3 up and bed alarm activated. Will continue to monitor and continue plan of care.
--- NOTE | 2018-12-17 07:29 | NUR ---
PT. RECEIVED STABLE ON AC, 16, 600, 30%, +5. VENT CIRCUIT AND SX TUBING SECURE AND OUT OF THE WAY. BILATERAL SOFT WRIST RETRAINS SECURE AND IN PLACE. NO SIGN OF RESPIRATORY DISTRESS NOTED AT THIS TIME. WILL CONTINUE TO MONITOR.
[2018-12-17] MEDS: Tigecycline 50 MG in NS 110 ML IVPB SCH ×2 (08:09→20:34)
[2018-12-17] MEDS: D5 1/2NS w/KCl 20mEq 1,000 ML IV SCH (08:09)
[2018-12-17] MEDS: Pantoprazole Inj IVP SCH (08:09)
[2018-12-17] MEDS: Heparin 5000 units/ml inj SUBQ SCH ×2 (08:10→20:35)
--- NOTE | 2018-12-17 09:35 | NUR ---
RADIOLOGY DEPT CHEST X-RAY DONE-P.DYE
--- NOTE | 2018-12-17 11:03 | NUR ---
NURSE NOTES: Turned and reposition pt. Oral care done. No acute distress. Will continue to monitor.
--- NOTE | 2018-12-17 11:39 | NUR ---
NURSE NOTES: Dr Fritz here to see pt. Latest ABG results discussed. Pt for CT chest today. Will continue to monitor.
--- NOTE | 2018-12-17 11:51 | NUR ---
RD ASSESSMENT & RECOMMENDATIONS SEE CARE ACTIVITY FOR COMPLETE ASSESSMENT DAILY ESTIMATED NEEDS: Needs based on Critical care, sepsis/ 67kg 22-28 kcals/kg 2317-9730 total kcals 1.2-2 g protein/kg 80-134 g total protein 25-30 mL/kg 6235-8793 total fluid mLs NUTRITION DIAGNOSIS: 1) Swallowing difficulty R/T dysphagia as evidenced by pt is PEG dep, on GT feeding, orally intubated at this time. 2) Altered nutrition related lab values r/t hyperglycemia as evidenced by BG 151, 159, on continuous tube feeds + D5 IVF. CURRENT TF:Jevity 1.2 @ 60ml/hr x 22 hrs + Prosource 1pkt QD ENTERAL NUTRITION RECOMMENDATIONS: Jevity 1.2 @ 60ml/hr x 22 hrs + Prosource 1pkt QD to provide 1320ml, 1584kcal, 73g + 11g prot, 1082ml free water * Maintain current TF + Prosource 1pkt daily * Hold 1 hour before and after Synthroid med * HOB over 30 degrees/ water flush per MD WITH CONSISTENTLY ELEV BGS, REC TF CHANGE TO GLUCERNA 1.2 : Glucerna 1.2 @ 60ml/hr x 22 hrs + Prosource 1pkt QD -> 1320ml, 1584kcal, 79 +11g prot, 1062ml free water ADDITIONAL RECOMMENDATIONS: * Per SNF, HT=67", SG=243# (from 11/23/18) * Calibrated bedscale wt for accurate CBW * Monitor BGs closely, need for carb controlled TF formula, hypoglycemic agents -> h/o DM * Monitor lytes, replete as needed. * Consider increasing water flushes and DC D5 IVF for improved BG control
--- NOTE | 2018-12-17 12:02 | Diagnostic Imaging Report ---
Indication: Dyspnea Comparison: 12/16/2018 A single view chest radiograph was obtained. Findings: Patchy parenchymal opacities demonstrated bilaterally unchanged. Heart size is stable. Tubes and lines are stable. IMPRESSION: No change from the previous day
--- NOTE | 2018-12-17 12:18 | Pulmonolgy Critical Care Note ---
Critical Care - Asmt/Plan Problems: (1) Acute respiratory failure (2) Septic shock (3) Feeding by G-tube (4) ATN (acute tubular necrosis) (5) Diabetes mellitus, type II (6) COPD (chronic obstructive pulmonary disease) (7) History of hypertension (8) Hypothyroidism Respiratory: monitor respiratory rate, adjust FIO2, CXR Cardiac: continue to monitor HR/BP Renal: F/U I&O, keep IV fluid, check electrolytes Infectious Disease: check cultures Gastrointestinal: continue feedings/current rate Endocrine: monitor blood sugar, check HgA1C Hematologic: transfuse if hgb<8.5 Neurologic: PRN Ativan, PRN Morphine, keep patient comfortable Prophylaxis: Protonix Notes Reviewed: cardio, renal Discussed with: nurses, consultants, family preservation caseworkerspecial events manager - Objective Last 24 Hour Vital Signs Date Time Temp Pulse Resp B/P (MAP) Pulse Ox O2 Delivery O2 Flow Rate FiO2 12/17/18 11:06 92 19 119/60 (79) 100 12/17/18 10:00 98 21 130/66 (87) 100 12/17/18 09:29 98 22 30 12/17/18 09:00 98 20 130/66 (87) 100 12/17/18 08:00 99.0 101 21 137/82 (100) 100 12/17/18 08:00 93 12/17/18 08:00 Mechanical Ventilator 12/17/18 08:00 30 12/17/18 07:29 100 24 30 12/17/18 07:00 90 20 130/65 (86) 100 12/17/18 06:00 94 20 136/72 (93) 100 12/17/18 05:09 89 18 30 12/17/18 05:00 93 20 120/69 (86) 100 12/17/18 04:00 30 12/17/18 04:00 87 12/17/18 04:00 Mechanical Ventilator 12/17/18 04:00 97.9 105 20 142/67 (92) 100 12/17/18 03:14 96 21 30 12/17/18 03:00 93 20 142/67 (92) 100 12/17/18 02:00 93 21 120/47 (71) 100 12/17/18 01:00 99 20 131/61 (84) 100 12/17/18 01:00 100 20 30 12/17/18 00:00 Mechanical Ventilator 12/17/18 00:00 30 12/17/18 00:00 98.0 95 20 140/64 (89) 100 12/17/18 00:00 96 12/16/18 23:06 97 21 30 12/16/18 23:00 97 21 141/67 (91) 100 12/16/18 22:00 98 21 133/67 (89) 100 12/16/18 21:18 93 20 30 12/16/18 21:00 97 22 141/76 (97) 100 12/16/18 20:00 Mechanical Ventilator 12/16/18 20:00 85 12/16/18 20:00 30 12/16/18 20:00 98.6 99 21 136/64 (88) 100 12/16/18 19:34 95 21 30 12/16/18 19:00 89 20 136/54 (81) 100 12/16/18 18:00 86 19 142/61 (88) 100 12/16/18 17:00 80 20 133/59 (83) 100 12/16/18 16:47 88 22 30 12/16/18 16:00 94 12/16/18 16:00 Mechanical Ventilator 12/16/18 16:00 98.9 84 21 134/61 (85) 100 12/16/18 16:00 30 12/16/18 15:00 91 23 141/67 (91) 100 12/16/18 14:53 102 24 30 12/16/18 14:00 89 21 149/68 (95) 100 12/16/18 14:00 149/68 12/16/18 13:21 77 18 30 12/16/18 13:00 89 24 138/60 (86) 100 Status: sedated Condition: critical HEENT: atraumatic Neck: full ROM Lungs: rales, rhonchi Heart: HR/BP stable Abdomen: soft, non-tender Extremities: no C/C/E, edema Accucheck: 101 Critical Care - Subjective ROS Limited/Unobtainable: Yes Condition: critical FI02: 30 Vent Support Breath Rate: 16 Vent Support Mode: AC Vent Tidal Volume: 600 Sputum Amount: Moderate PEEP: 0.0 PIP: 25 Tube Feeding Amount: 60 I&O: Intake and Output 12/16/18 12/17/18 19:00 07:00 Intake Total 1778 ml 1380 ml Output Total 1520 ml 1175 ml Balance 258 ml 205 ml Free Water 270 ml 60 ml IV Total 768 ml 660 ml Tube Feeding 720 ml 660 ml Other 20 ml Output Urine Total 1470 ml 1175 ml Stool Total 50 ml # Bowel Movements 3 CXR: no change ET-Tube: 8.0 ET Position: 23 Labs: Laboratory Tests Test 12/17/18 04:00 12/17/18 10:05 White Blood Count 13.0 K/UL (4.8-10.8) H Red Blood Count 3.14 M/UL (4.70-6.10) L Hemoglobin 8.1 G/DL (14.2-18.0) L Hematocrit 25.3 % (42.0-52.0) L Mean Corpuscular Volume 81 FL (80-99) Mean Corpuscular Hemoglobin 25.8 PG (27.0-31.0) L Mean Corpuscular Hemoglobin Concent 32.0 G/DL (32.0-36.0) Red Cell Distribution Width 17.6 % (11.6-14.8) H Platelet Count 248 K/UL (150-450) Mean Platelet Volume 8.2 FL (6.5-10.1) Neutrophils (%) (Auto) 73.0 % (45.0-75.0) Lymphocytes (%) (Auto) 17.4 % (20.0-45.0) L Monocytes (%) (Auto) 3.7 % (1.0-10.0) Eosinophils (%) (Auto) 5.1 % (0.0-3.0) H Basophils (%) (Auto) 0.8 % (0.0-2.0) Sodium Level 141 MMOL/L (136-145) Potassium Level 4.8 MMOL/L (3.5-5.1) Chloride Level 108 MMOL/L (98-107) H Carbon Dioxide Level 25 MMOL/L (21-32) Anion Gap 8 mmol/L (5-15) Blood Urea Nitrogen 30 mg/dL (7-18) H Creatinine 1.0 MG/DL (0.55-1.30) Estimat Glomerular Filtration Rate mL/min (>60) Glucose Level 114 MG/DL (74-106) H Calcium Level 8.0 MG/DL (8.5-10.1) L Arterial Blood pH 7.454 (7.350-7.450) Arterial Blood Partial Pressure CO2 31.9 mmHg (35.0-45.0) L Arterial Blood Partial Pressure O2 118.2 mmHg (75.0-100.0) H Arterial Blood HCO3 21.9 mmol/L (22.0-26.0) L Arterial Blood Oxygen Saturation 97.7 % (95-100) Arterial Blood Base Excess -1.6 (-2-2) Aroldo Test Positive Isaiah Fritz MD Dec 17, 2018 12:18
--- NOTE | 2018-12-17 12:22 | Infectious Diseases Prog Note ---
Assessment/Plan Assessment/Plan Assessment: Severe Sepsis- likely 2ry to PNA, r/o bacteremia, UTI. Possible Flu despite neg screen test -CXR: Bilateral diffuse interstitial and airspace infiltrates versus edema, worsening on the right over one day -Bcx NTD -u/a wbc 40-60, nit neg, leuk large; ucx 10-20 k P. mirablis ESBL (S Meropenem, Zosyn) -sp cx p -influenza sc, legionela ag urine neg Fever, improving Leukocytosis stable Acute respiratory failure s/p intubation 12/04 ELICIA, improving COPD DM2 HTN dysphagia s/p G-tube dementia SNF resident Plan: - Continue Tigecycline #6/7-10 for Acinetobacter - INH colistin #1 D/C 12/13/18 -12/10/18 IV Vancomycin #7 and Meropenem #6 for PNA and UTI -12/10 SP Tamiflu #6 -12/05 AMikacin and Ertapenem #2 -12/07/18 SP empiric Azithromycin #3 -f/u cx -Monitor CBC/CMP, temperatures -ICU, ETT care -aspiration precautions Will continue to follow along with you. Subjective Allergies: Coded Allergies: No Known Allergies (Unverified , 12/04/18) Subjective Still on Vent 30% O2 Continued Leukocytosis but improved today Objective Vital Signs Last 24 Hour Vital Signs Date Time Temp Pulse Resp B/P (MAP) Pulse Ox O2 Delivery O2 Flow Rate FiO2 12/17/18 11:06 92 19 119/60 (79) 100 12/17/18 10:00 98 21 130/66 (87) 100 12/17/18 09:29 98 22 30 12/17/18 09:00 98 20 130/66 (87) 100 12/17/18 08:00 99.0 101 21 137/82 (100) 100 12/17/18 08:00 93 12/17/18 08:00 Mechanical Ventilator 12/17/18 08:00 30 12/17/18 07:29 100 24 30 12/17/18 07:00 90 20 130/65 (86) 100 12/17/18 06:00 94 20 136/72 (93) 100 12/17/18 05:09 89 18 30 12/17/18 05:00 93 20 120/69 (86) 100 12/17/18 04:00 30 12/17/18 04:00 87 12/17/18 04:00 Mechanical Ventilator 12/17/18 04:00 97.9 105 20 142/67 (92) 100 12/17/18 03:14 96 21 30 12/17/18 03:00 93 20 142/67 (92) 100 12/17/18 02:00 93 21 120/47 (71) 100 12/17/18 01:00 99 20 131/61 (84) 100 12/17/18 01:00 100 20 30 12/17/18 00:00 Mechanical Ventilator 12/17/18 00:00 30 12/17/18 00:00 98.0 95 20 140/64 (89) 100 12/17/18 00:00 96 12/16/18 23:06 97 21 30 12/16/18 23:00 97 21 141/67 (91) 100 12/16/18 22:00 98 21 133/67 (89) 100 12/16/18 21:18 93 20 30 12/16/18 21:00 97 22 141/76 (97) 100 12/16/18 20:00 Mechanical Ventilator 12/16/18 20:00 85 12/16/18 20:00 30 12/16/18 20:00 98.6 99 21 136/64 (88) 100 12/16/18 19:34 95 21 30 12/16/18 19:00 89 20 136/54 (81) 100 12/16/18 18:00 86 19 142/61 (88) 100 12/16/18 17:00 80 20 133/59 (83) 100 12/16/18 16:47 88 22 30 12/16/18 16:00 94 12/16/18 16:00 Mechanical Ventilator 12/16/18 16:00 98.9 84 21 134/61 (85) 100 12/16/18 16:00 30 12/16/18 15:00 91 23 141/67 (91) 100 12/16/18 14:53 102 24 30 12/16/18 14:00 89 21 149/68 (95) 100 12/16/18 14:00 149/68 12/16/18 13:21 77 18 30 12/16/18 13:00 89 24 138/60 (86) 100 Height (Feet): 5 Height (Inches): 7.00 Weight (Pounds): 157 Objective Gen: NAD awake on Vent HEENT: NCAT Lungs: CTAB Heart: HR/BP stable Abdomen: soft, active bowel sounds Extremities: no C/C/E Laboratory Tests Test 12/17/18 04:00 12/17/18 10:05 White Blood Count 13.0 K/UL (4.8-10.8) H Red Blood Count 3.14 M/UL (4.70-6.10) L Hemoglobin 8.1 G/DL (14.2-18.0) L Hematocrit 25.3 % (42.0-52.0) L Mean Corpuscular Volume 81 FL (80-99) Mean Corpuscular Hemoglobin 25.8 PG (27.0-31.0) L Mean Corpuscular Hemoglobin Concent 32.0 G/DL (32.0-36.0) Red Cell Distribution Width 17.6 % (11.6-14.8) H Platelet Count 248 K/UL (150-450) Mean Platelet Volume 8.2 FL (6.5-10.1) Neutrophils (%) (Auto) 73.0 % (45.0-75.0) Lymphocytes (%) (Auto) 17.4 % (20.0-45.0) L Monocytes (%) (Auto) 3.7 % (1.0-10.0) Eosinophils (%) (Auto) 5.1 % (0.0-3.0) H Basophils (%) (Auto) 0.8 % (0.0-2.0) Sodium Level 141 MMOL/L (136-145) Potassium Level 4.8 MMOL/L (3.5-5.1) Chloride Level 108 MMOL/L (98-107) H Carbon Dioxide Level 25 MMOL/L (21-32) Anion Gap 8 mmol/L (5-15) Blood Urea Nitrogen 30 mg/dL (7-18) H Creatinine 1.0 MG/DL (0.55-1.30) Estimat Glomerular Filtration Rate mL/min (>60) Glucose Level 114 MG/DL (74-106) H Calcium Level 8.0 MG/DL (8.5-10.1) L Arterial Blood pH 7.454 (7.350-7.450) Arterial Blood Partial Pressure CO2 31.9 mmHg (35.0-45.0) L Arterial Blood Partial Pressure O2 118.2 mmHg (75.0-100.0) H Arterial Blood HCO3 21.9 mmol/L (22.0-26.0) L Arterial Blood Oxygen Saturation 97.7 % (95-100) Arterial Blood Base Excess -1.6 (-2-2) Aroldo Test Positive Current Medications Medications (Trade) Dose Ordered Sig/Courtney Route PRN Reason Start Time Stop Time Status Last Admin Dose Admin Acetaminophen (Tylenol) 650 mg Q4H PRN ORAL fever 12/04/18 14:00 01/03/19 13:59 12/07/18 19:26 Albuterol/ Ipratropium (Albuterol/ Ipratropium) 3 ml Q4H PRN HHN Shortness of Breath 12/15/18 10:45 12/20/18 10:44 Chlorhexidine Gluconate (Amna-Hex 2%) 1 applic DAILY@2000 TOPIC 12/13/18 20:00 01/12/19 19:59 12/16/18 19:44 Dextrose/ Electrolytes 1,000 ml @ 50 mls/hr Q20H IV 12/16/18 12:00 01/14/19 11:59 12/17/18 08:09 Heparin Sodium (Porcine) (Heparin 5000 units/ml) 5,000 units EVERY 12 HOURS SUBQ 12/04/18 21:00 01/03/19 20:59 12/17/18 08:10 Levothyroxine Sodium (Synthroid) 25 mcg DAILY@0630 ORAL 12/09/18 06:30 01/08/19 06:29 12/17/18 05:46 Lorazepam (Ativan 2mg/ml 1ml) 0.5 mg Q6H PRN IV For Anxiety 12/14/18 15:15 12/21/18 15:14 12/15/18 22:13 Norepinephrine Bitartrate 4 mg/ Dextrose 254 ml @ 0 mls/hr Q24H IV 12/04/18 14:00 01/03/19 13:59 Pantoprazole (Protonix) 40 mg DAILY IVP 12/05/18 09:00 01/04/19 08:59 12/17/18 08:09 Tigecycline 50 mg/ Sodium Chloride 110 ml @ 220 mls/hr EVERY 12 HOURS IVPB 1/28/19 21:00 12/19/18 20:59 12/17/18 08:09 Rayo Bhatti MD Dec 17, 2018 12:22
--- NOTE | 2018-12-17 12:51 | NUR ---
NURSE NOTES: Pt unable to tolerate wean today. BP in 180s, resp 30s. Will reschedule CT for tomorrow. Will continue to monitor.
--- NOTE | 2018-12-17 12:53 | NUR ---
2/4 unstable per RN Maya, try CT again tomorrow. TJB 12:55
--- NOTE | 2018-12-17 15:17 | NUR ---
NURSE NOTES: Turned and repositioned pt. Secretions suctioned. Will continue to monitor.
--- NOTE | 2018-12-17 15:56 | NUR ---
NURSE NOTES:WOUND CARE NOTES:Pt's skin assessed in presence of nurse on unit . Skin hyperpigmentation noted to R and L gluteal clefts.Skin dryness noted without erythema. Bilat heels boggy ,dry and blanchable .No evidence of any skin breakdown noted.
--- NOTE | 2018-12-17 16:07 | Cardiac Electrophysiology PN ---
Assessment/Plan Assessment/Plan 1. Respiratory failure with elevated BNP. Echo EF 55% to 60% with diastolic dysfunction. . 2. Pneumonia, respiratory failure on the ventilator as well as on broad- spectrum IV antibiotic per ID and Dr. Fritz. Still being weaned 3. Hypertension. Off Lisinopril and Lasix 4. Severe sepsis, likely due to pneumonia and bacteremia. 5. Diabetes 6. Dysphagia, status post PEG placement. 7. Azotemia , better DW RN Subjective Subjective In SR. In ICU on the vent in NAD. Alert and responsive. Failed weaning Objective Last 24 Hour Vital Signs Date Time Temp Pulse Resp B/P (MAP) Pulse Ox O2 Delivery O2 Flow Rate FiO2 12/17/18 16:00 Mechanical Ventilator 12/17/18 15:10 95 21 30 12/17/18 15:00 97 22 147/67 (93) 99 12/17/18 14:00 101 20 148/73 (98) 100 12/17/18 13:25 145/77 12/17/18 13:00 116 26 182/82 (115) 100 12/17/18 12:32 116 25 30 12/17/18 12:00 111 12/17/18 12:00 Mechanical Ventilator 12/17/18 12:00 98.7 116 29 185/82 (116) 100 12/17/18 12:00 30 12/17/18 11:06 92 19 119/60 (79) 100 12/17/18 11:00 96 29 30 12/17/18 11:00 100 12/17/18 10:00 98 21 130/66 (87) 100 12/17/18 09:29 98 22 30 12/17/18 09:00 98 20 130/66 (87) 100 12/17/18 08:00 99.0 101 21 137/82 (100) 100 12/17/18 08:00 93 12/17/18 08:00 Mechanical Ventilator 12/17/18 08:00 30 12/17/18 07:29 100 24 30 12/17/18 07:00 90 20 130/65 (86) 100 12/17/18 06:00 94 20 136/72 (93) 100 12/17/18 05:09 89 18 30 12/17/18 05:00 93 20 120/69 (86) 100 12/17/18 04:00 30 12/17/18 04:00 87 2/4/19 04:00 Mechanical Ventilator 12/17/18 04:00 97.9 105 20 142/67 (92) 100 12/17/18 03:14 96 21 30 12/17/18 03:00 93 20 142/67 (92) 100 12/17/18 02:00 93 21 120/47 (71) 100 12/17/18 01:00 99 20 131/61 (84) 100 12/17/18 01:00 100 20 30 12/17/18 00:00 Mechanical Ventilator 12/17/18 00:00 30 12/17/18 00:00 98.0 95 20 140/64 (89) 100 12/17/18 00:00 96 12/16/18 23:06 97 21 30 12/16/18 23:00 97 21 141/67 (91) 100 12/16/18 22:00 98 21 133/67 (89) 100 12/16/18 21:18 93 20 30 12/16/18 21:00 97 22 141/76 (97) 100 12/16/18 20:00 Mechanical Ventilator 12/16/18 20:00 85 12/16/18 20:00 30 12/16/18 20:00 98.6 99 21 136/64 (88) 100 12/16/18 19:34 95 21 30 12/16/18 19:00 89 20 136/54 (81) 100 12/16/18 18:00 86 19 142/61 (88) 100 12/16/18 17:00 80 20 133/59 (83) 100 12/16/18 16:47 88 22 30 Intake and Output 12/16/18 12/17/18 18:59 06:59 Intake Total 1758 ml 1460 ml Output Total 1545 ml 1200 ml Balance 213 ml 260 ml Free Water 240 ml 90 ml IV Total 778 ml 710 ml Tube Feeding 720 ml 660 ml Other 20 ml Output Urine Total 1495 ml 1200 ml Stool Total 50 ml # Bowel Movements 3 Laboratory Tests Test 12/17/18 04:00 12/17/18 10:05 White Blood Count 13.0 K/UL (4.8-10.8) H Red Blood Count 3.14 M/UL (4.70-6.10) L Hemoglobin 8.1 G/DL (14.2-18.0) L Hematocrit 25.3 % (42.0-52.0) L Mean Corpuscular Volume 81 FL (80-99) Mean Corpuscular Hemoglobin 25.8 PG (27.0-31.0) L Mean Corpuscular Hemoglobin Concent 32.0 G/DL (32.0-36.0) Red Cell Distribution Width 17.6 % (11.6-14.8) H Platelet Count 248 K/UL (150-450) Mean Platelet Volume 8.2 FL (6.5-10.1) Neutrophils (%) (Auto) 73.0 % (45.0-75.0) Lymphocytes (%) (Auto) 17.4 % (20.0-45.0) L Monocytes (%) (Auto) 3.7 % (1.0-10.0) Eosinophils (%) (Auto) 5.1 % (0.0-3.0) H Basophils (%) (Auto) 0.8 % (0.0-2.0) Sodium Level 141 MMOL/L (136-145) Potassium Level 4.8 MMOL/L (3.5-5.1) Chloride Level 108 MMOL/L (98-107) H Carbon Dioxide Level 25 MMOL/L (21-32) Anion Gap 8 mmol/L (5-15) Blood Urea Nitrogen 30 mg/dL (7-18) H Creatinine 1.0 MG/DL (0.55-1.30) Estimat Glomerular Filtration Rate mL/min (>60) Glucose Level 114 MG/DL (74-106) H Calcium Level 8.0 MG/DL (8.5-10.1) L Arterial Blood pH 7.454 (7.350-7.450) Arterial Blood Partial Pressure CO2 31.9 mmHg (35.0-45.0) L Arterial Blood Partial Pressure O2 118.2 mmHg (75.0-100.0) H Arterial Blood HCO3 21.9 mmol/L (22.0-26.0) L Arterial Blood Oxygen Saturation 97.7 % (95-100) Arterial Blood Base Excess -1.6 (-2-2) Aroldo Test Positive Objective HEAD AND NECK: Orally intubated. LUNGS: Coarse rhonchi. CARDIOVASCULAR: Regular S1 and S2 and mildly tachycardic. ABDOMEN: Status post G-tube. EXTREMITIES: No pitting edema. Darrell Cevallos MD Dec 17, 2018 16:07
--- NOTE | 2018-12-17 16:31 | NUR ---
NURSE NOTES: ET nurse came to assess wound. ET nurse saw no open wound. Will continue to monitor.
--- NOTE | 2018-12-17 17:26 | NUR ---
RESPIRATORY NOTE: PT. STABLE ON CURRENT CMV SETTINGS AND ALL VS ARE WNL. VENT CIRCUIT AND SX TUBBING SECURE AND OUT OF THE WAY. PT SX PRN WITH NO ADVERSE REACTION. NO S/S OF RESPIRATORY DISTRESS NOTED AT THIS TIME.
--- NOTE | 2018-12-17 19:01 | NUR ---
RESPIRATORY NOTE: Received pt on AC 16, 600VT, 30%, no PEEP. Pt intubated w/ ETT 8.0 @ 23cm lipline, secured by anchorfast. Pt alert/awake, follows commands. Both hands on soft restraints to prevent from self-extubation. B/S rachel. rhonchi, sxn small to moderate amounts of thick, pale-yellow to shah secretions. Vent plugged into red outlet, ambubag at bedside. Pt denies SOB/chest pain at this time. Will continue to monitor pt.
--- NOTE | 2018-12-17 19:01 | Internal Med Progress Note ---
Subjective Date of Service: Dec 17, 2018 Physician Name Roni Carson Attending Physician Isaiah Fritz MD Current Medications Medications (Trade) Dose Ordered Sig/Courtney Route PRN Reason Start Time Stop Time Status Last Admin Dose Admin Acetaminophen (Tylenol) 650 mg Q4H PRN ORAL fever 12/04/18 14:00 01/03/19 13:59 12/07/18 19:26 Albuterol/ Ipratropium (Albuterol/ Ipratropium) 3 ml Q4H PRN HHN Shortness of Breath 12/15/18 10:45 12/20/18 10:44 Chlorhexidine Gluconate (Amna-Hex 2%) 1 applic DAILY@2000 TOPIC 12/13/18 20:00 01/12/19 19:59 12/16/18 19:44 Dextrose/ Electrolytes 1,000 ml @ 50 mls/hr Q20H IV 12/16/18 12:00 01/14/19 11:59 12/17/18 08:09 Heparin Sodium (Porcine) (Heparin 5000 units/ml) 5,000 units EVERY 12 HOURS SUBQ 12/04/18 21:00 01/03/19 20:59 12/17/18 08:10 Levothyroxine Sodium (Synthroid) 25 mcg DAILY@0630 ORAL 12/09/18 06:30 01/08/19 06:29 12/17/18 05:46 Lorazepam (Ativan 2mg/ml 1ml) 0.5 mg Q6H PRN IV For Anxiety 12/14/18 15:15 12/21/18 15:14 12/15/18 22:13 Norepinephrine Bitartrate 4 mg/ Dextrose 254 ml @ 0 mls/hr Q24H IV 12/04/18 14:00 01/03/19 13:59 Pantoprazole (Protonix) 40 mg DAILY IVP 12/05/18 09:00 01/04/19 08:59 12/17/18 08:09 Tigecycline 50 mg/ Sodium Chloride 110 ml @ 220 mls/hr EVERY 12 HOURS IVPB 12/10/18 21:00 12/19/18 20:59 12/17/18 08:09 Allergies: Coded Allergies: No Known Allergies (Unverified , 12/04/18) ROS Limited/Unobtainable: Yes Subjective 73 YO M admitted with respiratory failure. Now pneumonia. Intubated and sedated. ICU. Cover for Int Garret-Dr Matthews Objective Last Vital Signs Date Time Temp Pulse Resp B/P (MAP) Pulse Ox O2 Delivery O2 Flow Rate FiO2 12/17/18 18:00 92 19 119/60 (79) 100 12/17/18 17:26 30 12/17/18 16:00 99.0 12/17/18 16:00 Mechanical Ventilator Laboratory Tests Test 12/17/18 04:00 12/17/18 10:05 White Blood Count 13.0 K/UL (4.8-10.8) H Red Blood Count 3.14 M/UL (4.70-6.10) L Hemoglobin 8.1 G/DL (14.2-18.0) L Hematocrit 25.3 % (42.0-52.0) L Mean Corpuscular Volume 81 FL (80-99) Mean Corpuscular Hemoglobin 25.8 PG (27.0-31.0) L Mean Corpuscular Hemoglobin Concent 32.0 G/DL (32.0-36.0) Red Cell Distribution Width 17.6 % (11.6-14.8) H Platelet Count 248 K/UL (150-450) Mean Platelet Volume 8.2 FL (6.5-10.1) Neutrophils (%) (Auto) 73.0 % (45.0-75.0) Lymphocytes (%) (Auto) 17.4 % (20.0-45.0) L Monocytes (%) (Auto) 3.7 % (1.0-10.0) Eosinophils (%) (Auto) 5.1 % (0.0-3.0) H Basophils (%) (Auto) 0.8 % (0.0-2.0) Sodium Level 141 MMOL/L (136-145) Potassium Level 4.8 MMOL/L (3.5-5.1) Chloride Level 108 MMOL/L (98-107) H Carbon Dioxide Level 25 MMOL/L (21-32) Anion Gap 8 mmol/L (5-15) Blood Urea Nitrogen 30 mg/dL (7-18) H Creatinine 1.0 MG/DL (0.55-1.30) Estimat Glomerular Filtration Rate mL/min (>60) Glucose Level 114 MG/DL (74-106) H Calcium Level 8.0 MG/DL (8.5-10.1) L Arterial Blood pH 7.454 (7.350-7.450) Arterial Blood Partial Pressure CO2 31.9 mmHg (35.0-45.0) L Arterial Blood Partial Pressure O2 118.2 mmHg (75.0-100.0) H Arterial Blood HCO3 21.9 mmol/L (22.0-26.0) L Arterial Blood Oxygen Saturation 97.7 % (95-100) Arterial Blood Base Excess -1.6 (-2-2) Aroldo Test Positive Intake and Output 12/16/18 12/17/18 18:59 06:59 Intake Total 1758 ml 1460 ml Output Total 1545 ml 1200 ml Balance 213 ml 260 ml Free Water 240 ml 90 ml IV Total 778 ml 710 ml Tube Feeding 720 ml 660 ml Other 20 ml Output Urine Total 1495 ml 1200 ml Stool Total 50 ml # Bowel Movements 3 Objective General Appearance: WD/WN, no apparent distress, lethargic EENT: PERRL/EOMI, normal ENT inspection Neck: non-tender, normal alignment, supple, normal inspection Cardiovascular: normal peripheral pulses, normal rate, regular rhythm, no gallop/murmur, no JVD Respiratory/Chest: Mech vent; chest wall non-tender, respiratory distress, crackles/rales, rhonchi - bilaterally, expiratory wheezing Abdomen: normal bowel sounds, non tender, soft, no organomegaly, no mass Extremities: normal range of motion, non-tender Skin: normal pigmentation, warm/dry Assessment/Plan Problem List: (1) Pneumonia Assessment & Plan: See ID note. Continue tegacycline (2) Anemia Assessment & Plan: S/P tansfusion 2 units PRBC 12/05/18. (3) Elevated troponin Assessment & Plan: See cardiology consult. (4) COPD (chronic obstructive pulmonary disease) (5) HTN (hypertension) Assessment & Plan: Currently on levophed (6) CHF (congestive heart failure) Assessment & Plan: LVEF=55-60% (7) Diabetes mellitus, type II (8) Chronic renal failure Assessment & Plan: See nephrology note. (9) Dysphagia (10) CAD (coronary artery disease) (11) Acute respiratory failure Assessment & Plan: Weaning protocol; Continue mech vent per pulm (12) Hypothyroidism Status: not improved Roni Carson MD Dec 17, 2018 19:01
--- NOTE | 2018-12-17 19:25 | NUR ---
HAND-OFF: Report given to Elana WESTBROOK.
--- NOTE | 2018-12-17 19:26 | NUR ---
NURSE NOTES: Endorsement received from DARIANA Eldridge. Patient awake and alert x2-3. Sinus rhythm on the monitor. Orally intubated with 8.0. 23 lipline. AC 16, Vt 600, 30%. No shortness of breath. With left upper arm PICC, ongoing D5 1/2 NS + KCl 50 ml/hr. With PEG. Patent and intact. Receiving Jevity 1.2. No residual. Rectal tube draining per gravity. With Andrade F16 connected to urimeter. Clear yellow urine noted. Bilateral soft wrist restraints present. Skin warm and dry, peripheral pulses present. On P200 mattress. Call light within reach. Head of bed elevated. Bed locked and in low position. BEd alarm on.
[2018-12-17] MEDS: Dyna-Hex 2% Top Sol 2oz TOPIC SCH (19:44)
--- NOTE | 2018-12-17 20:00 | NUR ---
NURSE NOTES: Temp noted to be 99.9F. Cooling measures initiated. PRN tylenol given.
--- NOTE | 2018-12-17 22:00 | NUR ---
NURSE NOTES: Patient asleep. Repositioned. Temp 99.3F.
[2018-12-18] VITALS (24 sets, daily range): BP systolic 87–169; BP diastolic 59–89
--- NOTE | 2018-12-18 | NUR ---
NURSE NOTES: Patient asleep. Tolerating feeding. No signs of pain or discomfort.
--- NOTE | 2018-12-18 02:00 | NUR ---
NURSE NOTES: Secretions suctioned. Patient repositioned.
[2018-12-18] MEDS: D5 1/2NS w/KCl 20mEq 1,000 ML IV SCH (03:51)
--- NOTE | 2018-12-18 04:00 | NUR ---
NURSE NOTES: Bed bath, oral care done.
[2018-12-18 05:30] LABS: BASOPHILS % (AUTO) 0.7 % (0.0-2.0); EOSINOPHILS % (AUTO) 4.4 % (0.0-3.0); HEMATOCRIT 29.1 % (42.0-52.0); HEMOGLOBIN 9.1 G/DL (14.2-18.0); LYMPHOCYTES % (AUTO) 19.6 % (20.0-45.0); MEAN CORPUSCULAR VOLUME 81 FL (80-99); MONOCYTES % (AUTO) 3.6 % (1.0-10.0); NEUTROPHILS % (AUTO) 71.7 % (45.0-75.0); PLATELET COUNT 235 K/UL (150-450); RED BLOOD COUNT 3.61 M/UL (4.70-6.10); RED CELL DISTRIBUTION WIDTH 17.5 % (11.6-14.8); WHITE BLOOD COUNT 13.1 K/UL (4.8-10.8)
--- NOTE | 2018-12-18 05:30 | NUR ---
NURSE NOTES: GT feeding turned off for synthroid at 0630H. To be restarted at 0730H as ordered.
[2018-12-18] MEDS: Levothyroxine 25mcg tab ORAL SCH (06:17)
[2018-12-18 06:31] LABS: ALANINE AMINOTRANSFERASE 25 U/L (12-78); ALBUMIN 1.5 G/DL (3.4-5.0); ALBUMIN/GLOBULIN RATIO 0.2 (1.0-2.7); ALKALINE PHOSPHATASE 134 U/L (46-116); ANION GAP 7 mmol/L (5-15); ASPARTATE AMINO TRANSFERASE 27 U/L (15-37); BILIRUBIN,TOTAL 0.6 MG/DL (0.2-1.0); BLOOD UREA NITROGEN 30 mg/dL (7-18); CALCIUM 8.3 MG/DL (8.5-10.1); CARBON DIOXIDE 24 MMOL/L (21-32); CHLORIDE 105 MMOL/L (98-107); CREATININE 1.1 MG/DL (0.55-1.30); PHOSPHORUS 4.9 MG/DL (2.5-4.9); POTASSIUM 4.7 MMOL/L (3.5-5.1); SODIUM 136 MMOL/L (136-145)
--- NOTE | 2018-12-18 07:06 | NUR ---
HAND-OFF: Report given to Jazmyn.
--- NOTE | 2018-12-18 07:22 | NUR ---
NURSE NOTES: Report received from Elana WESTBROOK. Pt awake, alert and oriented x 3, able to follow commands. Pt connected to surveillance system monitor, SR. Pt orally intubated ETT 8, 23 cm lip line, AC 16, TV 600, 30% fiO2, 0 PEEP. GTF Jevity 60 cc/hr. Rectal tube intact and draining loose stool to gravity. Andrade noted and intact draining clear yellow urine to gravity. BRADLEY PICC with D5 1/2 +20K running. Bilateral soft wrist restraints intact. Pt attempting to pull lines and tubes. Safety measures in place with bed locked and in lowest position, side rails x3 up and bed alarm activated. Will continue to monitor and continue plan of care.
--- NOTE | 2018-12-18 07:50 | NUR ---
RESPIRATORY NOTE: Received pt on AC 16, 600VT, 30%. Pt intubated w/ ETT 8.0 @ 23cm lipline, secured by anchorfast. Pt is alert and awake, follows commands. Both hands on soft-restraints to prevent self-extubation. B/S rachel. rhonchi/diminished, sxn small amounts of thick/thin white-yellow secretions without incidents. Vent plugged into red outlet, ambubag at bedside, alarms are set and audible. Vent circuit and Sx tubbing secure and out of the way. Put pt con CPAP -10- 30% FiO2 per weaning order. Pt resting comfortably, tolerating well the CPAP, and in no apparent distress at this time. Will continue to monitor pt.
[2018-12-18] MEDS: Pantoprazole Inj IVP SCH (08:20)
[2018-12-18] MEDS: Tigecycline 50 MG in NS 110 ML IVPB SCH ×2 (08:20→20:44)
[2018-12-18] MEDS: Heparin 5000 units/ml inj SUBQ SCH ×2 (08:21→20:28)
--- NOTE | 2018-12-18 09:30 | NUR ---
RESPIRATORY NOTE: Decreased PS to 8, titrated FiO2 down to 25% post ABG result. Pt is tolerating well. No SOB or resp distress noted. RN Jazmyn made aware. Vent circuit and sxn tubbing are out of the way. Will continue to monitor pt.
--- NOTE | 2018-12-18 09:44 | Infectious Diseases Prog Note ---
Assessment/Plan Assessment/Plan Assessment: Severe Sepsis- likely 2ry to PNA, r/o bacteremia, UTI. Possible Flu despite neg screen test -CXR: Bilateral diffuse interstitial and airspace infiltrates versus edema, worsening on the right over one day -Bcx NTD -u/a wbc 40-60, nit neg, leuk large; ucx 10-20 k P. mirablis ESBL (S Meropenem, Zosyn) -sp cx p -influenza sc, legionela ag urine neg Fever, improving Leukocytosis stable Acute respiratory failure s/p intubation 12/04 ELICIA, improving COPD DM2 HTN dysphagia s/p G-tube dementia SNF resident Plan: - Continue Tigecycline #7/7-10 for Acinetobacter Restart INH Colistin #1 - INH colistin #1 D/C 12/13/18 -12/10/18 IV Vancomycin #7 and Meropenem #6 for PNA and UTI -12/10 SP Tamiflu #6 -12/05 AMikacin and Ertapenem #2 -12/07/18 SP empiric Azithromycin #3 -f/u cx -Monitor CBC/CMP, temperatures -ICU, ETT care -aspiration precautions Will continue to follow along with you. Subjective Allergies: Coded Allergies: No Known Allergies (Unverified , 12/04/18) Subjective Still on Vent 30% O2 Continued Leukocytosis Objective Vital Signs Last 24 Hour Vital Signs Date Time Temp Pulse Resp B/P (MAP) Pulse Ox O2 Delivery O2 Flow Rate FiO2 12/18/18 08:51 98.8 12/18/18 08:35 86 24 30 12/18/18 08:00 30 12/18/18 08:00 100.2 94 20 151/89 (109) 100 12/18/18 08:00 Mechanical Ventilator 12/18/18 07:40 88 25 30 12/18/18 07:00 92 20 166/72 (103) 100 12/18/18 06:00 97 20 160/85 (110) 100 12/18/18 05:05 92 23 30 12/18/18 05:00 99.4 92 20 169/79 (109) 100 12/18/18 04:00 88 12/18/18 04:00 Mechanical Ventilator 12/18/18 04:00 30 12/18/18 04:00 99.4 91 20 166/74 (104) 100 12/18/18 03:00 89 21 166/74 (104) 100 12/18/18 02:50 90 24 30 12/18/18 02:00 88 23 157/80 (105) 100 12/18/18 01:08 92 19 30 12/18/18 01:00 94 20 157/84 (108) 100 12/18/18 00:00 87 12/18/18 00:00 Mechanical Ventilator 12/18/18 00:00 99.3 89 20 153/62 (92) 100 12/18/18 00:00 30 12/17/18 23:07 91 21 30 12/17/18 23:00 89 20 146/60 (88) 100 12/17/18 22:00 92 20 146/60 (88) 100 12/17/18 21:00 97 20 156/77 (103) 100 12/17/18 20:55 94 20 30 12/17/18 20:00 30 12/17/18 20:00 97 12/17/18 20:00 99.9 97 20 141/76 (97) 100 12/17/18 20:00 Mechanical Ventilator 12/17/18 19:00 98 20 148/68 (94) 100 12/17/18 18:58 99 21 30 12/17/18 18:00 92 19 119/60 (79) 100 12/17/18 17:26 96 19 30 12/17/18 17:00 93 14 149/69 (95) 100 12/17/18 16:00 99.0 94 20 148/70 (96) 100 12/17/18 16:00 94 12/17/18 16:00 30 12/17/18 16:00 Mechanical Ventilator 12/17/18 15:10 95 21 30 12/17/18 15:00 97 22 147/67 (93) 99 12/17/18 14:00 101 20 148/73 (98) 100 12/17/18 13:25 145/77 12/17/18 13:00 116 26 182/82 (115) 100 12/17/18 12:32 116 25 30 12/17/18 12:00 111 12/17/18 12:00 Mechanical Ventilator 12/17/18 12:00 98.7 116 29 185/82 (116) 100 12/17/18 12:00 30 12/17/18 11:06 92 19 119/60 (79) 100 12/17/18 11:00 96 29 30 12/17/18 11:00 100 12/17/18 10:00 98 21 130/66 (87) 100 Height (Feet): 5 Height (Inches): 7.00 Weight (Pounds): 157 Objective Gen: NAD awake and tracking on Vent HEENT: NCAT Lungs: CTAB Heart: HR/BP stable Abdomen: soft, active bowel sounds Extremities: no C/C/E Laboratory Tests Test 12/17/18 10:05 12/18/18 04:00 12/18/18 09:24 Arterial Blood pH 7.454 (7.350-7.450) 7.422 (7.350-7.450) Arterial Blood Partial Pressure CO2 31.9 mmHg (35.0-45.0) L 34.8 mmHg (35.0-45.0) L Arterial Blood Partial Pressure O2 118.2 mmHg (75.0-100.0) H 121.2 mmHg (75.0-100.0) H Arterial Blood HCO3 21.9 mmol/L (22.0-26.0) L 22.2 mmol/L (22.0-26.0) Arterial Blood Oxygen Saturation 97.7 % (95-100) 98.0 % (95-100) Arterial Blood Base Excess -1.6 (-2-2) -1.8 (-2-2) Aroldo Test Positive Positive White Blood Count 13.1 K/UL (4.8-10.8) H Red Blood Count 3.61 M/UL (4.70-6.10) L Hemoglobin 9.1 G/DL (14.2-18.0) L Hematocrit 29.1 % (42.0-52.0) L Mean Corpuscular Volume 81 FL (80-99) Mean Corpuscular Hemoglobin 25.3 PG (27.0-31.0) L Mean Corpuscular Hemoglobin Concent 31.4 G/DL (32.0-36.0) L Red Cell Distribution Width 17.5 % (11.6-14.8) H Platelet Count 235 K/UL (150-450) Mean Platelet Volume 9.8 FL (6.5-10.1) Neutrophils (%) (Auto) 71.7 % (45.0-75.0) Lymphocytes (%) (Auto) 19.6 % (20.0-45.0) L Monocytes (%) (Auto) 3.6 % (1.0-10.0) Eosinophils (%) (Auto) 4.4 % (0.0-3.0) H Basophils (%) (Auto) 0.7 % (0.0-2.0) Sodium Level 136 MMOL/L (136-145) Potassium Level 4.7 MMOL/L (3.5-5.1) Chloride Level 105 MMOL/L (98-107) Carbon Dioxide Level 24 MMOL/L (21-32) Anion Gap 7 mmol/L (5-15) Blood Urea Nitrogen 30 mg/dL (7-18) H Creatinine 1.1 MG/DL (0.55-1.30) Estimat Glomerular Filtration Rate mL/min (>60) Glucose Level 110 MG/DL (74-106) H Calcium Level 8.3 MG/DL (8.5-10.1) L Phosphorus Level 4.9 MG/DL (2.5-4.9) Magnesium Level 1.7 MG/DL (1.8-2.4) L Total Bilirubin 0.6 MG/DL (0.2-1.0) Aspartate Amino Transf (AST/SGOT) 27 U/L (15-37) Alanine Aminotransferase (ALT/SGPT) 25 U/L (12-78) Alkaline Phosphatase 134 U/L (46-116) H Total Protein 7.9 G/DL (6.4-8.2) Albumin 1.5 G/DL (3.4-5.0) L Globulin 6.4 g/dL Albumin/Globulin Ratio 0.2 (1.0-2.7) L Current Medications Medications (Trade) Dose Ordered Sig/Courtney Route PRN Reason Start Time Stop Time Status Last Admin Dose Admin Acetaminophen (Tylenol) 650 mg Q4H PRN ORAL fever 12/04/18 14:00 01/03/19 13:59 12/18/18 08:21 Albuterol/ Ipratropium (Albuterol/ Ipratropium) 3 ml Q4H PRN HHN Shortness of Breath 12/15/18 10:45 12/20/18 10:44 Chlorhexidine Gluconate (Amna-Hex 2%) 1 applic DAILY@1999 TOPIC 12/13/18 20:00 01/12/19 19:59 12/17/18 19:44 Dextrose/ Electrolytes 1,000 ml @ 50 mls/hr Q20H IV 12/16/18 12:00 01/14/19 11:59 12/18/18 03:51 Heparin Sodium (Porcine) (Heparin 5000 units/ml) 5,000 units EVERY 12 HOURS SUBQ 12/04/18 21:00 01/03/19 20:59 12/18/18 08:21 Levothyroxine Sodium (Synthroid) 25 mcg DAILY@0630 ORAL 12/09/18 06:30 01/08/19 06:29 12/18/18 06:17 Lorazepam (Ativan 2mg/ml 1ml) 0.5 mg Q6H PRN IV For Anxiety 12/14/18 15:15 12/21/18 15:14 12/15/18 22:13 Norepinephrine Bitartrate 4 mg/ Dextrose 254 ml @ 0 mls/hr Q24H IV 12/04/18 14:00 01/03/19 13:59 Pantoprazole (Protonix) 40 mg DAILY IVP 12/05/18 09:00 01/04/19 08:59 12/18/18 08:20 Tigecycline 50 mg/ Sodium Chloride 110 ml @ 220 mls/hr EVERY 12 HOURS IVPB 12/10/18 21:00 12/21/18 20:59 12/18/18 08:20 Rayo Bhatti MD Dec 18, 2018 09:44
--- NOTE | 2018-12-18 09:47 | NUR ---
RADIOLOGY DEPT CHEST X-RAY DONE.-P.DYE
--- NOTE | 2018-12-18 09:59 | NUR ---
NURSE NOTES: Dr Fritz here to see pt. No acute distress. Will continue to monitor.
--- NOTE | 2018-12-18 10:26 | Pulmonolgy Critical Care Note ---
Critical Care - Asmt/Plan Problems: (1) Acute respiratory failure (2) Septic shock (3) Feeding by G-tube (4) ATN (acute tubular necrosis) (5) Diabetes mellitus, type II (6) COPD (chronic obstructive pulmonary disease) (7) History of hypertension (8) Hypothyroidism Respiratory: monitor respiratory rate, adjust FIO2, CXR Cardiac: continue to monitor HR/BP Renal: F/U I&O, check electrolytes Infectious Disease: check cultures Gastrointestinal: continue feedings/current rate Endocrine: monitor blood sugar, check HgA1C Hematologic: monitor H/H, transfuse if hgb<8.5 Neurologic: PRN Ativan, PRN Morphine, keep patient comfortable Prophylaxis: Protonix Notes Reviewed: cardio Discussed with: nurses, consultants, case linercorporate logistics manager - Objective Last 24 Hour Vital Signs Date Time Temp Pulse Resp B/P (MAP) Pulse Ox O2 Delivery O2 Flow Rate FiO2 12/18/18 10:00 82 20 145/71 (95) 100 12/18/18 09:30 100 12/18/18 09:30 25 12/18/18 09:00 94 23 165/76 (105) 100 12/18/18 08:51 98.8 12/18/18 08:35 86 24 30 12/18/18 08:00 30 12/18/18 08:00 100.2 94 20 151/89 (109) 100 12/18/18 08:00 Mechanical Ventilator 12/18/18 07:40 88 25 30 12/18/18 07:40 100 12/18/18 07:00 92 20 166/72 (103) 100 12/18/18 06:00 97 20 160/85 (110) 100 12/18/18 05:05 92 23 30 12/18/18 05:00 99.4 92 20 169/79 (109) 100 12/18/18 04:00 88 12/18/18 04:00 Mechanical Ventilator 12/18/18 04:00 30 12/18/18 04:00 99.4 91 20 166/74 (104) 100 12/18/18 03:00 89 21 166/74 (104) 100 12/18/18 02:50 90 24 30 12/18/18 02:00 88 23 157/80 (105) 100 12/18/18 01:08 92 19 30 12/18/18 01:00 94 20 157/84 (108) 100 12/18/18 00:00 87 12/18/18 00:00 Mechanical Ventilator 12/18/18 00:00 99.3 89 20 153/62 (92) 100 12/18/18 00:00 30 12/17/18 23:07 91 21 30 12/17/18 23:00 89 20 146/60 (88) 100 12/17/18 22:00 92 20 146/60 (88) 100 12/17/18 21:00 97 20 156/77 (103) 100 12/17/18 20:55 94 20 30 12/17/18 20:00 30 12/17/18 20:00 97 12/17/18 20:00 99.9 97 20 141/76 (97) 100 12/17/18 20:00 Mechanical Ventilator 12/17/18 19:00 98 20 148/68 (94) 100 12/17/18 18:58 99 21 30 12/17/18 18:00 92 19 119/60 (79) 100 12/17/18 17:26 96 19 30 12/17/18 17:00 93 14 149/69 (95) 100 12/17/18 16:00 99.0 94 20 148/70 (96) 100 12/17/18 16:00 94 12/17/18 16:00 30 12/17/18 16:00 Mechanical Ventilator 12/17/18 15:10 95 21 30 12/17/18 15:00 97 22 147/67 (93) 99 12/17/18 14:00 101 20 148/73 (98) 100 12/17/18 13:25 145/77 12/17/18 13:00 116 26 182/82 (115) 100 12/17/18 12:32 116 25 30 12/17/18 12:00 111 12/17/18 12:00 Mechanical Ventilator 12/17/18 12:00 98.7 116 29 185/82 (116) 100 12/17/18 12:00 30 12/17/18 11:06 92 19 119/60 (79) 100 12/17/18 11:00 96 29 30 12/17/18 11:00 100 Status: awake Condition: critical HEENT: atraumatic, normocephalic Neck: full ROM Heart: HR/BP stable Abdomen: soft, active bowel sounds Extremities: edema Decubiti: location Accucheck: 101 Critical Care - Subjective ROS Limited/Unobtainable: Yes Condition: critical EKG Rhythm: Sinus Rhythm FI02: 25 Vent Support Breath Rate: 16 Vent Support Mode: CPAP Vent Tidal Volume: 600 Sputum Amount: Small PEEP: 0.0 PIP: 11 Tube Feeding Amount: 60 I&O: Intake and Output 12/17/18 12/18/18 19:00 07:00 Intake Total 1330 ml 1400 ml Output Total 900 ml 775 ml Balance 430 ml 625 ml Free Water 130 ml IV Total 610 ml 550 ml Tube Feeding 720 ml 720 ml Output Urine Total 900 ml 775 ml # Bowel Movements 3 3 CXR: no change, CT pending ET-Tube: 8.0 ET Position: 23 Labs: Laboratory Tests Test 12/18/18 04:00 12/18/18 09:24 White Blood Count 13.1 K/UL (4.8-10.8) H Red Blood Count 3.61 M/UL (4.70-6.10) L Hemoglobin 9.1 G/DL (14.2-18.0) L Hematocrit 29.1 % (42.0-52.0) L Mean Corpuscular Volume 81 FL (80-99) Mean Corpuscular Hemoglobin 25.3 PG (27.0-31.0) L Mean Corpuscular Hemoglobin Concent 31.4 G/DL (32.0-36.0) L Red Cell Distribution Width 17.5 % (11.6-14.8) H Platelet Count 235 K/UL (150-450) Mean Platelet Volume 9.8 FL (6.5-10.1) Neutrophils (%) (Auto) 71.7 % (45.0-75.0) Lymphocytes (%) (Auto) 19.6 % (20.0-45.0) L Monocytes (%) (Auto) 3.6 % (1.0-10.0) Eosinophils (%) (Auto) 4.4 % (0.0-3.0) H Basophils (%) (Auto) 0.7 % (0.0-2.0) Sodium Level 136 MMOL/L (136-145) Potassium Level 4.7 MMOL/L (3.5-5.1) Chloride Level 105 MMOL/L (98-107) Carbon Dioxide Level 24 MMOL/L (21-32) Anion Gap 7 mmol/L (5-15) Blood Urea Nitrogen 30 mg/dL (7-18) H Creatinine 1.1 MG/DL (0.55-1.30) Estimat Glomerular Filtration Rate mL/min (>60) Glucose Level 110 MG/DL (74-106) H Calcium Level 8.3 MG/DL (8.5-10.1) L Phosphorus Level 4.9 MG/DL (2.5-4.9) Magnesium Level 1.7 MG/DL (1.8-2.4) L Total Bilirubin 0.6 MG/DL (0.2-1.0) Aspartate Amino Transf (AST/SGOT) 27 U/L (15-37) Alanine Aminotransferase (ALT/SGPT) 25 U/L (12-78) Alkaline Phosphatase 134 U/L (46-116) H Total Protein 7.9 G/DL (6.4-8.2) Albumin 1.5 G/DL (3.4-5.0) L Globulin 6.4 g/dL Albumin/Globulin Ratio 0.2 (1.0-2.7) L Arterial Blood pH 7.422 (7.350-7.450) Arterial Blood Partial Pressure CO2 34.8 mmHg (35.0-45.0) L Arterial Blood Partial Pressure O2 121.2 mmHg (75.0-100.0) H Arterial Blood HCO3 22.2 mmol/L (22.0-26.0) Arterial Blood Oxygen Saturation 98.0 % (95-100) Arterial Blood Base Excess -1.8 (-2-2) Aroldo Test Positive Isaiah Fritz MD Dec 18, 2018 10:26
[2018-12-18] MEDS ORDERED: NS 275ml ONE (10:29)
[2018-12-18] MEDS ORDERED: Tubing IV Secondary IV ONE (10:29)
[2018-12-18] MEDS ORDERED: 1/2 NS 1000ml IV ONE (10:30)
--- NOTE | 2018-12-18 10:56 | NUR ---
RESPIRATORY NOTE: Put pt back on AC mode per Dr. Fritz's order. pt is resting comfortably, no acute resp distress noted. Vent circuit and sxn tubbing are out of the way. DARIANA Eldridge made aware. Will continue to monitor.
--- NOTE | 2018-12-18 11:03 | NUR ---
Social Service Note Patient continues to require medical intervention. Patient is awake, orally intubated and under weaning protocols. If unable to wean will require discussing for trach. Will monitor and discuss with MD.
--- NOTE | 2018-12-18 12:18 | Diagnostic Imaging Report ---
Indication: Dyspnea Comparison: 12/17/2018 A single view chest radiograph was obtained. Findings: Endotracheal tube is pulled back slightly and is at the level the clavicle heads. No change otherwise. PICC line again noted. Patchy bilateral infiltrates noted. IMPRESSION: Endotracheal tube is slightly high and has been retracted since the last exam. No change otherwise
[2018-12-18] MEDS: Colistin for inhalation INH SCH ×2 (12:56→21:53)
--- NOTE | 2018-12-18 12:57 | NUR ---
RESPIRATORY NOTE: DARIANA Blank inform that pt had a new order for Colistin 150mg started at 1000. The fist dose of Colistin was non admitted due to unacknowledged of new order. Couldn't give the med now due to 2hrs late. DARIANA Blank made aware. No SOB or resp distress noted. Will continue to monitor pt.
--- NOTE | 2018-12-18 14:05 | NUR ---
RESPIRATORY NOTE: Transferred pt to CT scan on 15L ambu bag, vital signs within normal range. No SOB or resp distress noted. DARIANA Eldridge went along with pt, pollution control technician and me . After CT scan, transferred pt back to ICU room. Put back to vent AC mode with the previous settings, no SOB or resp distress noted. Vent circuits and sxn tubbing out of the way, sxn pt with small amount of thick white/shah secretion. DARIANA Eldridge is at bedside. Ambu bag put back to the bedside. Will continue to monitor.
--- NOTE | 2018-12-18 14:49 | NUR ---
NURSE NOTES: Pt returned from CT chest. No acute distress. Will continue to monitor.
--- NOTE | 2018-12-18 15:16 | Cardiac Electrophysiology PN ---
Assessment/Plan Assessment/Plan 1. Respiratory failure with elevated BNP. Echo EF 55% to 60% with diastolic dysfunction. 2. Pneumonia, respiratory failure on the ventilator and IV antibiotic per ID and Dr. Fritz. Still being weaned 3. Hypertension. Off meds. 4. Severe sepsis, likely due to pneumonia 5. Diabetes 6. Dysphagia, status post PEG placement. 7. Azotemia, better DW RN Subjective Subjective In SR. In ICU on the vent in NAD. Alert and responsive. Still being weaned. Had Chest CT, results pending Objective Last 24 Hour Vital Signs Date Time Temp Pulse Resp B/P (MAP) Pulse Ox O2 Delivery O2 Flow Rate FiO2 12/18/18 15:00 91 20 100/74 (83) 100 12/18/18 14:00 97 16 87/59 (68) 98 12/18/18 14:00 155/86 12/18/18 13:00 90 20 155/86 (109) 100 12/18/18 12:45 87 22 25 12/18/18 12:00 98.8 91 22 151/89 (109) 100 12/18/18 12:00 30 12/18/18 12:00 87 12/18/18 12:00 Mechanical Ventilator 12/18/18 11:00 92 21 151/86 (107) 100 12/18/18 10:56 93 23 25 12/18/18 10:00 82 20 145/71 (95) 100 12/18/18 09:30 100 12/18/18 09:30 25 12/18/18 09:00 94 23 165/76 (105) 100 12/18/18 08:51 98.8 12/18/18 08:35 86 24 30 12/18/18 08:00 30 12/18/18 08:00 100.2 94 20 151/89 (109) 100 12/18/18 08:00 93 12/18/18 08:00 Mechanical Ventilator 12/18/18 07:40 88 25 30 12/18/18 07:40 100 12/18/18 07:00 92 20 166/72 (103) 100 12/18/18 06:00 97 20 160/85 (110) 100 12/18/18 05:05 92 23 30 12/18/18 05:00 99.4 92 20 169/79 (109) 100 12/18/18 04:00 88 12/18/18 04:00 Mechanical Ventilator 12/18/18 04:00 30 12/18/18 04:00 99.4 91 20 166/74 (104) 100 12/18/18 03:00 89 21 166/74 (104) 100 12/18/18 02:50 90 24 30 12/18/18 02:00 88 23 157/80 (105) 100 12/18/18 01:08 92 19 30 12/18/18 01:00 94 20 157/84 (108) 100 12/18/18 00:00 87 12/18/18 00:00 Mechanical Ventilator 12/18/18 00:00 99.3 89 20 153/62 (92) 100 12/18/18 00:00 30 12/17/18 23:07 91 21 30 12/17/18 23:00 89 20 146/60 (88) 100 12/17/18 22:00 92 20 146/60 (88) 100 12/17/18 21:00 97 20 156/77 (103) 100 12/17/18 20:55 94 20 30 12/17/18 20:00 30 12/17/18 20:00 97 12/17/18 20:00 99.9 97 20 141/76 (97) 100 12/17/18 20:00 Mechanical Ventilator 12/17/18 19:00 98 20 148/68 (94) 100 12/17/18 18:58 99 21 30 12/17/18 18:00 92 19 119/60 (79) 100 12/17/18 17:26 96 19 30 12/17/18 17:00 93 14 149/69 (95) 100 12/17/18 16:00 99.0 94 20 148/70 (96) 100 12/17/18 16:00 94 12/17/18 16:00 30 12/17/18 16:00 Mechanical Ventilator Intake and Output 12/17/18 12/18/18 19:00 07:00 Intake Total 1330 ml 1450 ml Output Total 900 ml 775 ml Balance 430 ml 675 ml Free Water 130 ml IV Total 610 ml 600 ml Tube Feeding 720 ml 720 ml Output Urine Total 900 ml 775 ml # Bowel Movements 3 3 Laboratory Tests Test 12/18/18 04:00 12/18/18 09:24 White Blood Count 13.1 K/UL (4.8-10.8) H Red Blood Count 3.61 M/UL (4.70-6.10) L Hemoglobin 9.1 G/DL (14.2-18.0) L Hematocrit 29.1 % (42.0-52.0) L Mean Corpuscular Volume 81 FL (80-99) Mean Corpuscular Hemoglobin 25.3 PG (27.0-31.0) L Mean Corpuscular Hemoglobin Concent 31.4 G/DL (32.0-36.0) L Red Cell Distribution Width 17.5 % (11.6-14.8) H Platelet Count 235 K/UL (150-450) Mean Platelet Volume 9.8 FL (6.5-10.1) Neutrophils (%) (Auto) 71.7 % (45.0-75.0) Lymphocytes (%) (Auto) 19.6 % (20.0-45.0) L Monocytes (%) (Auto) 3.6 % (1.0-10.0) Eosinophils (%) (Auto) 4.4 % (0.0-3.0) H Basophils (%) (Auto) 0.7 % (0.0-2.0) Sodium Level 136 MMOL/L (136-145) Potassium Level 4.7 MMOL/L (3.5-5.1) Chloride Level 105 MMOL/L (98-107) Carbon Dioxide Level 24 MMOL/L (21-32) Anion Gap 7 mmol/L (5-15) Blood Urea Nitrogen 30 mg/dL (7-18) H Creatinine 1.1 MG/DL (0.55-1.30) Estimat Glomerular Filtration Rate mL/min (>60) Glucose Level 110 MG/DL (74-106) H Calcium Level 8.3 MG/DL (8.5-10.1) L Phosphorus Level 4.9 MG/DL (2.5-4.9) Magnesium Level 1.7 MG/DL (1.8-2.4) L Total Bilirubin 0.6 MG/DL (0.2-1.0) Aspartate Amino Transf (AST/SGOT) 27 U/L (15-37) Alanine Aminotransferase (ALT/SGPT) 25 U/L (12-78) Alkaline Phosphatase 134 U/L (46-116) H Total Protein 7.9 G/DL (6.4-8.2) Albumin 1.5 G/DL (3.4-5.0) L Globulin 6.4 g/dL Albumin/Globulin Ratio 0.2 (1.0-2.7) L Arterial Blood pH 7.422 (7.350-7.450) Arterial Blood Partial Pressure CO2 34.8 mmHg (35.0-45.0) L Arterial Blood Partial Pressure O2 121.2 mmHg (75.0-100.0) H Arterial Blood HCO3 22.2 mmol/L (22.0-26.0) Arterial Blood Oxygen Saturation 98.0 % (95-100) Arterial Blood Base Excess -1.8 (-2-2) Aroldo Test Positive Objective HEAD AND NECK: Orally intubated. LUNGS: Coarse rhonchi. CARDIOVASCULAR: Regular S1 and S2 and mildly tachycardic. ABDOMEN: Status post G-tube. EXTREMITIES: No pitting edema. Darrell Cevallos MD Dec 18, 2018 15:16
--- NOTE | 2018-12-18 15:25 | NUR ---
NURSE NOTES: Dr Cevallos here to see pt. No acute distress. Will continue to monitor.
--- NOTE | 2018-12-18 15:46 | Diagnostic Imaging Report ---
Indication: Chest pain. Acute respiratory failure. Septic shock. Intubated. Technique: Continuous helical transaxial imaging of the chest was obtained from the thoracic inlet to the upper abdomen. No intravenous contrast was administered. Coronal 2-D reformats were also obtained. Total Dose length Product (DLP): 743.[address] Dose Index Volume (CTDIvol): 20.73 mGy Comparison: none Findings: Both reticular/small airways densities and areas of a focal consolidative opacities are present within the lungs. The consolidation is present within both lower lobes is seen as areas of ill-defined density with air bronchograms and with some groundglass opacities. In addition there are tiny reticular densities some mild slightly branching tree-in-bud type opacities within the lower lobes especially in the right lower lobe. There is a small right pleural effusion. There is a trace left pleural effusion present. There is breathing motion present limiting evaluation. The endotracheal tube tip is at the level of T2, about 7 cm above the debbie. This is slightly high and consider advancing the tube a few centimeters. Central venous catheter is present with the tip in the proximal right atrium. Calcification of aorta noted. Gastrostomy tube is present in good position. Atrophic right kidney noted with the densely rim calcified cyst. IMPRESSION: Pulmonary infiltrates demonstrated bilaterally with most of airspace disease in the lower lobes right worse than left. Findings may be due to pneumonia. Please correlate clinically. Small bilateral pleural effusions slightly larger on the right. Small airways/reticular densities (tree-in-bud) also demonstrated. Differential diagnosis is large. Findings could certainly be related to bronchopneumonia, especially aspiration. Numerous other possibilities including bronchiolitis, TB, fungal, connective tissue disorders, among others. Endotracheal tube is slightly high riding with the tip at about the level of T2 vertebra. Suggest advancing the endotracheal tube about 3 cm. Breathing motion artifact Atherosclerotic disease Atrophic right kidney. PICC line and gastrostomy tube appear in good position. The CT scanner at [facility] is accredited by the [employer] and the scans are performed using dose optimization techniques as appropriate to a performed exam including Automatic Exposure control.
--- NOTE | 2018-12-18 17:00 | NUR ---
NURSE NOTES: Turned and repositioned pt. Pt suctioned. Lots of secretions from mouth. Will continue to monitor.
--- NOTE | 2018-12-18 18:25 | Internal Med Progress Note ---
Subjective Date of Service: Dec 18, 2018 Physician Name Roni Carson Attending Physician Isaiah Fritz MD Current Medications Medications (Trade) Dose Ordered Sig/Courtney Route PRN Reason Start Time Stop Time Status Last Admin Dose Admin Acetaminophen (Tylenol) 650 mg Q4H PRN ORAL fever 12/04/18 14:00 01/03/19 13:59 12/18/18 08:21 Albuterol/ Ipratropium (Albuterol/ Ipratropium) 3 ml Q4H PRN HHN Shortness of Breath 12/15/18 10:45 12/20/18 10:44 Chlorhexidine Gluconate (Amna-Hex 2%) 1 applic DAILY@2000 TOPIC 12/13/18 20:00 01/12/19 19:59 12/17/18 19:44 Colistimethate Sodium (Colistin *inhalation use only*) 150 mg Q12HR@10,22 INH 12/18/18 10:00 12/25/18 09:59 Dextrose/ Electrolytes 1,000 ml @ 50 mls/hr Q20H IV 12/16/18 12:00 01/14/19 11:59 12/18/18 03:51 Heparin Sodium (Porcine) (Heparin 5000 units/ml) 5,000 units EVERY 12 HOURS SUBQ 12/04/18 21:00 01/03/19 20:59 12/18/18 08:21 Levothyroxine Sodium (Synthroid) 25 mcg DAILY@0630 ORAL 12/09/18 06:30 01/08/19 06:29 12/18/18 06:17 Lorazepam (Ativan 2mg/ml 1ml) 0.5 mg Q6H PRN IV For Anxiety 12/14/18 15:15 12/21/18 15:14 12/15/18 22:13 Norepinephrine Bitartrate 4 mg/ Dextrose 254 ml @ 0 mls/hr Q24H IV 12/04/18 14:00 01/03/19 13:59 Pantoprazole (Protonix) 40 mg DAILY IVP 12/05/18 09:00 01/04/19 08:59 12/18/18 08:20 Tigecycline 50 mg/ Sodium Chloride 110 ml @ 220 mls/hr EVERY 12 HOURS IVPB 12/10/18 21:00 12/21/18 20:59 12/18/18 08:20 Allergies: Coded Allergies: No Known Allergies (Unverified , 12/04/18) ROS Limited/Unobtainable: Yes Subjective 73 YO M admitted with respiratory failure. Now pneumonia. Intubated and sedated. ICU. Cover for Int Garret-Dr Matthews Objective Last Vital Signs Date Time Temp Pulse Resp B/P (MAP) Pulse Ox O2 Delivery O2 Flow Rate FiO2 12/18/18 18:00 97 24 157/85 (109) 100 12/18/18 16:50 25 12/18/18 16:00 98.2 12/18/18 16:00 Mechanical Ventilator Laboratory Tests Test 12/18/18 04:00 12/18/18 09:24 White Blood Count 13.1 K/UL (4.8-10.8) H Red Blood Count 3.61 M/UL (4.70-6.10) L Hemoglobin 9.1 G/DL (14.2-18.0) L Hematocrit 29.1 % (42.0-52.0) L Mean Corpuscular Volume 81 FL (80-99) Mean Corpuscular Hemoglobin 25.3 PG (27.0-31.0) L Mean Corpuscular Hemoglobin Concent 31.4 G/DL (32.0-36.0) L Red Cell Distribution Width 17.5 % (11.6-14.8) H Platelet Count 235 K/UL (150-450) Mean Platelet Volume 9.8 FL (6.5-10.1) Neutrophils (%) (Auto) 71.7 % (45.0-75.0) Lymphocytes (%) (Auto) 19.6 % (20.0-45.0) L Monocytes (%) (Auto) 3.6 % (1.0-10.0) Eosinophils (%) (Auto) 4.4 % (0.0-3.0) H Basophils (%) (Auto) 0.7 % (0.0-2.0) Sodium Level 136 MMOL/L (136-145) Potassium Level 4.7 MMOL/L (3.5-5.1) Chloride Level 105 MMOL/L (98-107) Carbon Dioxide Level 24 MMOL/L (21-32) Anion Gap 7 mmol/L (5-15) Blood Urea Nitrogen 30 mg/dL (7-18) H Creatinine 1.1 MG/DL (0.55-1.30) Estimat Glomerular Filtration Rate mL/min (>60) Glucose Level 110 MG/DL (74-106) H Calcium Level 8.3 MG/DL (8.5-10.1) L Phosphorus Level 4.9 MG/DL (2.5-4.9) Magnesium Level 1.7 MG/DL (1.8-2.4) L Total Bilirubin 0.6 MG/DL (0.2-1.0) Aspartate Amino Transf (AST/SGOT) 27 U/L (15-37) Alanine Aminotransferase (ALT/SGPT) 25 U/L (12-78) Alkaline Phosphatase 134 U/L (46-116) H Total Protein 7.9 G/DL (6.4-8.2) Albumin 1.5 G/DL (3.4-5.0) L Globulin 6.4 g/dL Albumin/Globulin Ratio 0.2 (1.0-2.7) L Arterial Blood pH 7.422 (7.350-7.450) Arterial Blood Partial Pressure CO2 34.8 mmHg (35.0-45.0) L Arterial Blood Partial Pressure O2 121.2 mmHg (75.0-100.0) H Arterial Blood HCO3 22.2 mmol/L (22.0-26.0) Arterial Blood Oxygen Saturation 98.0 % (95-100) Arterial Blood Base Excess -1.8 (-2-2) Aroldo Test Positive Intake and Output 12/17/18 12/18/18 18:59 06:59 Intake Total 1280 ml 1450 ml Output Total 900 ml 775 ml Balance 380 ml 675 ml Free Water 130 ml IV Total 560 ml 600 ml Tube Feeding 720 ml 720 ml Output Urine Total 900 ml 775 ml # Bowel Movements 3 3 Objective General Appearance: WD/WN, no apparent distress, lethargic EENT: PERRL/EOMI, normal ENT inspection Neck: non-tender, normal alignment, supple, normal inspection Cardiovascular: normal peripheral pulses, normal rate, regular rhythm, no gallop/murmur, no JVD Respiratory/Chest: Mech vent; chest wall non-tender, respiratory distress, crackles/rales, rhonchi - bilaterally, expiratory wheezing Abdomen: normal bowel sounds, non tender, soft, no organomegaly, no mass Extremities: normal range of motion, non-tender Skin: normal pigmentation, warm/dry Assessment/Plan Problem List: (1) Pneumonia Assessment & Plan: See ID note. Continue tegacycline (2) Anemia Assessment & Plan: S/P tansfusion 2 units PRBC 12/05/18. (3) Elevated troponin Assessment & Plan: See cardiology consult. (4) COPD (chronic obstructive pulmonary disease) (5) HTN (hypertension) Assessment & Plan: Currently on levophed (6) CHF (congestive heart failure) Assessment & Plan: LVEF=55-60% (7) Diabetes mellitus, type II (8) Chronic renal failure Assessment & Plan: See nephrology note. (9) Dysphagia (10) CAD (coronary artery disease) (11) Acute respiratory failure Assessment & Plan: Weaning protocol; Continue mech vent per pulm (12) Hypothyroidism Status: not improved Roni Carson MD Dec 18, 2018 18:25
--- NOTE | 2018-12-18 19:21 | NUR ---
HAND-OFF: Report given to Elana WESTBROOK.
--- NOTE | 2018-12-18 19:22 | NUR ---
NURSE NOTES: Endorsement received from DARIANA Eldridge. Patient awake and alert x3. Sinus rhythm on the monitor. Orally intubated with 8.0. 23 lower lipline. AC 16, Vt 600, 30%. No shortness of breath. With left upper arm PICC, ongoing D5 1/2 NS + KCl 20meqs 50 ml/hr. With PEG tube. Patent and intact. Receiving Jevity 1.2. No residual. Rectal tube draining per gravity. With Andrade F16 connected to urimeter. Bilateral soft wrist restraints present. Skin warm and dry, peripheral pulses present. On P200 mattress. Call light within reach. Head of bed elevated. Bed locked and in low position. BEd alarm on.
--- NOTE | 2018-12-18 19:30 | NUR ---
NURSE NOTES: Infromed Dr. Fritz regarding CT chest result. Doctor acknowledged, no new order at this time
[2018-12-18] MEDS: Dyna-Hex 2% Top Sol 2oz TOPIC SCH (20:26)
--- NOTE | 2018-12-18 21:00 | NUR ---
NURSE NOTES: Patient asleep. No shortness of breath.
--- NOTE | 2018-12-18 23:00 | NUR ---
NURSE NOTES: Patient repositioned. Secretions suctioned.
[2018-12-19] VITALS (24 sets, daily range): BP systolic 124–190; BP diastolic 54–86
[2018-12-19] MEDS: D5 1/2NS w/KCl 20mEq 1,000 ML IV SCH (00:22)
--- NOTE | 2018-12-19 01:00 | NUR ---
NURSE NOTES: Patient tolerating feeding. Sinus rhythm on the monitor.
--- NOTE | 2018-12-19 03:00 | NUR ---
NURSE NOTES: Calm, asleep. no distress. VSS.
--- NOTE | 2018-12-19 05:00 | NUR ---
NURSE NOTES: Bed bath, oral care, change of linens done.
--- NOTE | 2018-12-19 05:30 | NUR ---
NURSE NOTES: Feeding withheld for Synthroid due at 0630H
[2018-12-19 05:38] LABS: BASOPHILS % (AUTO) 0.9 % (0.0-2.0); EOSINOPHILS % (AUTO) 3.2 % (0.0-3.0); HEMOGLOBIN 9.3 G/DL (14.2-18.0); LYMPHOCYTES % (AUTO) 12.3 % (20.0-45.0); MEAN CORPUSCULAR VOLUME 80 FL (80-99); MONOCYTES % (AUTO) 6.1 % (1.0-10.0); NEUTROPHILS % (AUTO) 77.5 % (45.0-75.0); PLATELET COUNT 288 K/UL (150-450); RED BLOOD COUNT 3.61 M/UL (4.70-6.10); RED CELL DISTRIBUTION WIDTH 17.5 % (11.6-14.8); WHITE BLOOD COUNT 15.2 K/UL (4.8-10.8)
[2018-12-19] MEDS: Levothyroxine 25mcg tab ORAL SCH (06:12)
[2018-12-19 06:32] LABS: ALANINE AMINOTRANSFERASE 22 U/L (12-78); ALBUMIN 1.6 G/DL (3.4-5.0); ALBUMIN/GLOBULIN RATIO 0.2 (1.0-2.7); ALKALINE PHOSPHATASE 144 U/L (46-116); ANION GAP 9 mmol/L (5-15); ASPARTATE AMINO TRANSFERASE 22 U/L (15-37); BILIRUBIN,TOTAL 0.7 MG/DL (0.2-1.0); BLOOD UREA NITROGEN 33 mg/dL (7-18); CALCIUM 8.6 MG/DL (8.5-10.1); CARBON DIOXIDE 22 MMOL/L (21-32); CHLORIDE 103 MMOL/L (98-107); PHOSPHORUS 4.9 MG/DL (2.5-4.9); POTASSIUM 5.1 MMOL/L (3.5-5.1); SODIUM 134 MMOL/L (136-145)
--- NOTE | 2018-12-19 07:21 | NUR ---
HAND-OFF: Report given to
--- NOTE | 2018-12-19 07:50 | NUR ---
RESPIRATORY NOTE: Received pt on AC 16, 600VT, 25% FiO2, no peep. Pt intubated w/ ETT 8.0 @ 24cm lipline, secured by anchorfast. Pt is alert and awake, follows commands. Both hands on soft-restraints to prevent self-extubation. B/S rachel. rhonchi/diminished, sxn moderate amounts of thick/thin white-shah secretions without incidents. Vent plugged into red outlet, ambubag at bedside, alarms are set and audible. Vent circuit and Sx tubbing secured and out of the way. Put pt con CPAP -8- 25% FiO2 per weaning order. Pt resting comfortably, tolerating well the CPAP, and in no apparent distress at this time. RN Rayo made aware. Will continue to monitor pt.
--- NOTE | 2018-12-19 08:15 | NUR ---
NURSE NOTES: Patient started on weaning with settings of CPAP with PS of 8 and FIo2 of 25%, patient is awake and alert while weaning with RR of 24-29 using the Abdominal muscles, patient asked if he is having trouble breathing , but stated he is able to breathing with no distress, white clear secretion suctioned through Et-tube, will continue to monitor.
--- NOTE | 2018-12-19 08:58 | NUR ---
RADIOLOGY DEPT CHEST X-RAY DONE.-PD.
[2018-12-19] MEDS: Pantoprazole Inj IVP SCH (09:27)
[2018-12-19] MEDS: Tigecycline 50 MG in NS 110 ML IVPB SCH ×2 (09:28→20:52)
[2018-12-19] MEDS: Heparin 5000 units/ml inj SUBQ SCH ×2 (09:29→20:53)
[2018-12-19] MEDS: Colistin for inhalation INH SCH ×2 (10:04→21:21)
--- NOTE | 2018-12-19 10:12 | Pulmonolgy Critical Care Note ---
Critical Care - Asmt/Plan Problems: (1) Acute respiratory failure (2) Septic shock (3) Feeding by G-tube (4) ATN (acute tubular necrosis) (5) Diabetes mellitus, type II (6) COPD (chronic obstructive pulmonary disease) (7) History of hypertension (8) Hypothyroidism Respiratory: monitor respiratory rate, adjust FIO2, CXR Cardiac: continue to monitor HR/BP Renal: F/U I&O, keep IV fluid, check electrolytes Infectious Disease: check cultures Gastrointestinal: continue feedings/current rate Endocrine: monitor blood sugar, check HgA1C Hematologic: monitor H/H, transfuse if hgb<8.5 Neurologic: PRN Ativan, PRN Morphine, keep patient comfortable Prophylaxis: Protonix Notes Reviewed: cardio, renal Discussed with: consultants, medical case managersalon/spa manager - Objective Last 24 Hour Vital Signs Date Time Temp Pulse Resp B/P (MAP) Pulse Ox O2 Delivery O2 Flow Rate FiO2 12/19/18 10:04 104 26 100 Mechanical Ventilator 25 12/19/18 09:00 94 24 155/83 (107) 100 12/19/18 08:50 77 20 25 12/19/18 08:50 100 12/19/18 08:00 99.1 83 23 156/86 (109) 99 12/19/18 08:00 25 12/19/18 08:00 87 12/19/18 08:00 Mechanical Ventilator Mechanical Ventilator 12/19/18 07:58 25 12/19/18 07:58 25 12/19/18 07:48 88 23 25 12/19/18 07:43 84 22 25 12/19/18 07:00 86 22 154/78 (103) 100 12/19/18 06:00 90 25 161/77 (105) 100 12/19/18 05:13 88 28 25 12/19/18 05:00 87 25 161/77 (105) 100 12/19/18 04:00 25 12/19/18 04:00 99.5 87 25 161/77 (105) 100 12/19/18 04:00 90 12/19/18 04:00 Mechanical Ventilator 12/19/18 03:30 94 28 25 12/19/18 03:00 91 24 168/86 (113) 100 12/19/18 02:00 91 21 161/80 (107) 100 12/19/18 01:27 95 27 25 12/19/18 01:00 98 21 158/81 (106) 98 12/19/18 00:14 99.3 12/19/18 00:00 30 12/19/18 00:00 98 12/19/18 00:00 Mechanical Ventilator 12/19/18 00:00 99.6 98 24 166/84 (111) 100 12/18/18 23:41 102 27 25 12/18/18 23:00 100 23 166/84 (111) 100 12/18/18 22:00 100 21 166/84 (111) 100 12/18/18 21:51 107 28 100 Mechanical Ventilator 25 12/18/18 21:40 101 27 25 12/18/18 21:00 99.6 102 23 166/84 (111) 100 12/18/18 20:00 99 12/18/18 20:00 Mechanical Ventilator 12/18/18 20:00 30 12/18/18 20:00 99.9 102 23 153/78 (103) 100 12/18/18 19:32 96 23 25 12/18/18 19:00 96 23 154/82 (106) 100 12/18/18 18:00 97 24 157/85 (109) 100 12/18/18 17:00 94 23 152/75 (100) 100 12/18/18 16:50 91 22 25 12/18/18 16:00 98.2 96 23 147/83 (104) 100 12/18/18 16:00 Mechanical Ventilator 12/18/18 16:00 87 12/18/18 16:00 30 12/18/18 15:11 95 22 25 12/18/18 15:00 91 20 100/74 (83) 100 12/18/18 14:00 97 16 87/59 (68) 98 12/18/18 14:00 155/86 12/18/18 13:00 90 20 155/86 (109) 100 12/18/18 12:45 87 22 25 12/18/18 12:00 98.8 91 22 151/89 (109) 100 12/18/18 12:00 30 12/18/18 12:00 87 12/18/18 12:00 Mechanical Ventilator 12/18/18 11:00 92 21 151/86 (107) 100 12/18/18 10:56 93 23 25 Status: awake Condition: critical Neck: full ROM Heart: HR/BP stable Abdomen: soft, active bowel sounds, feeding tube Extremities: no C/C/E Decubiti: location, stage Accucheck: 101 Critical Care - Subjective Condition: critical EKG Rhythm: Sinus Rhythm FI02: 25 Vent Support Breath Rate: 16 Vent Support Mode: CPAP Vent Tidal Volume: 600 Sputum Amount: Small PEEP: 0.0 PIP: 8 Tube Feeding Amount: 60 I&O: Intake and Output 12/18/18 12/19/18 19:00 07:00 Intake Total 1320 ml 1953 ml Output Total 900 ml 1175 ml Balance 420 ml 778 ml Free Water 120 ml IV Total 600 ml 1113 ml Tube Feeding 720 ml 720 ml Output Urine Total 900 ml 1175 ml Stool Total 0 ml # Bowel Movements 3 3 CXR: CT chest reviewed, CXR unchanged ET-Tube: 8.0 ET Position: 24 Labs: Laboratory Tests Test 12/19/18 04:00 12/19/18 09:13 White Blood Count 15.2 K/UL (4.8-10.8) H Red Blood Count 3.61 M/UL (4.70-6.10) L Hemoglobin 9.3 G/DL (14.2-18.0) L Hematocrit 29.0 % (42.0-52.0) L Mean Corpuscular Volume 80 FL (80-99) Mean Corpuscular Hemoglobin 25.9 PG (27.0-31.0) L Mean Corpuscular Hemoglobin Concent 32.2 G/DL (32.0-36.0) Red Cell Distribution Width 17.5 % (11.6-14.8) H Platelet Count 288 K/UL (150-450) Mean Platelet Volume 9.9 FL (6.5-10.1) Neutrophils (%) (Auto) 77.5 % (45.0-75.0) H Lymphocytes (%) (Auto) 12.3 % (20.0-45.0) L Monocytes (%) (Auto) 6.1 % (1.0-10.0) Eosinophils (%) (Auto) 3.2 % (0.0-3.0) H Basophils (%) (Auto) 0.9 % (0.0-2.0) Sodium Level 134 MMOL/L (136-145) L Potassium Level 5.1 MMOL/L (3.5-5.1) Chloride Level 103 MMOL/L (98-107) Carbon Dioxide Level 22 MMOL/L (21-32) Anion Gap 9 mmol/L (5-15) Blood Urea Nitrogen 33 mg/dL (7-18) H Creatinine 1.0 MG/DL (0.55-1.30) Estimat Glomerular Filtration Rate mL/min (>60) Glucose Level 116 MG/DL (74-106) H Calcium Level 8.6 MG/DL (8.5-10.1) Phosphorus Level 4.9 MG/DL (2.5-4.9) Magnesium Level 1.6 MG/DL (1.8-2.4) L Total Bilirubin 0.7 MG/DL (0.2-1.0) Aspartate Amino Transf (AST/SGOT) 22 U/L (15-37) Alanine Aminotransferase (ALT/SGPT) 22 U/L (12-78) Alkaline Phosphatase 144 U/L (46-116) H Total Protein 8.3 G/DL (6.4-8.2) H Albumin 1.6 G/DL (3.4-5.0) L Globulin 6.7 g/dL Albumin/Globulin Ratio 0.2 (1.0-2.7) L Arterial Blood pH 7.399 (7.350-7.450) Arterial Blood Partial Pressure CO2 33.2 mmHg (35.0-45.0) L Arterial Blood Partial Pressure O2 92.5 mmHg (75.0-100.0) Arterial Blood HCO3 20.1 mmol/L (22.0-26.0) L Arterial Blood Oxygen Saturation 96.3 % (95-100) Arterial Blood Base Excess -4.1 (-2-2) L Aroldo Test Positive Isaiah Fritz MD Dec 19, 2018 10:11
--- NOTE | 2018-12-19 10:45 | NUR ---
NURSE NOTES: Dr. Fritz updated at the bedside of patient ABG, Fluids running with tube feeding and regarding magnesium of 1.6. he orders to d/c fluids and continue weaning and see if ct scan has been resulted, he also ordered to have 2g of magnesium placed, will continue plan of care.
--- NOTE | 2018-12-19 10:59 | NUR ---
RESPIRATORY NOTE: Put pt back to AC mode per pt's request due to tiredness. RN Rayo made aware. Vent circuits and sxn tubbing secured and out of the way. Pt's resting comfortably, no resp distress noted. Will continue to monitor.
--- NOTE | 2018-12-19 11:15 | NUR ---
NURSE NOTES: Dr. grossamn consulted to the case for placment of trach, will be done on or Monday. will obtain consent.
--- NOTE | 2018-12-19 12:00 | NUR ---
NURSE NOTES: patient placed back to AC 16, TV: 600, And fio2: 25%, patient stated he was feeling tired and feels like he cant take a breath, patient is awake and alert to name, he is able to communicate using gestures to communicate needs, will continue to monitor.
--- NOTE | 2018-12-19 12:22 | Internal Med Progress Note ---
Subjective Date of Service: Dec 19, 2018 Physician Name Roni Carson Attending Physician Isaiah Fritz MD Current Medications Medications (Trade) Dose Ordered Sig/Courtney Route PRN Reason Start Time Stop Time Status Last Admin Dose Admin Acetaminophen (Tylenol) 650 mg Q4H PRN ORAL fever 12/04/18 14:00 01/03/19 13:59 12/18/18 20:27 Albuterol/ Ipratropium (Albuterol/ Ipratropium) 3 ml Q4H PRN HHN Shortness of Breath 12/15/18 10:45 12/20/18 10:44 Chlorhexidine Gluconate (Amna-Hex 2%) 1 applic DAILY@1999 TOPIC 12/13/18 20:00 01/12/19 19:59 12/18/18 20:26 Colistimethate Sodium (Colistin *inhalation use only*) 150 mg Q12HR@10, INH 12/18/18 10:00 12/25/18 09:59 12/19/18 10:04 Heparin Sodium (Porcine) (Heparin 5000 units/ml) 5,000 units EVERY 12 HOURS SUBQ 12/04/18 21:00 01/03/19 20:59 12/19/18 09:29 Levothyroxine Sodium (Synthroid) 25 mcg DAILY@0630 ORAL 12/09/18 06:30 01/08/19 06:29 12/19/18 06:12 Lorazepam (Ativan 2mg/ml 1ml) 0.5 mg Q6H PRN IV For Anxiety 12/14/18 15:15 12/21/18 15:14 12/15/18 22:13 Norepinephrine Bitartrate 4 mg/ Dextrose 254 ml @ 0 mls/hr Q24H IV 12/04/18 14:00 01/03/19 13:59 Pantoprazole (Protonix) 40 mg DAILY IVP 12/05/18 09:00 01/04/19 08:59 12/19/18 09:27 Tigecycline 50 mg/ Sodium Chloride 110 ml @ 220 mls/hr EVERY 12 HOURS IVPB 12/10/18 21:00 12/21/18 20:59 12/19/18 09:28 Allergies: Coded Allergies: No Known Allergies (Unverified , 12/04/18) ROS Limited/Unobtainable: Yes Subjective 73 YO M admitted with respiratory failure. Now pneumonia. Intubated and sedated. ICU. Cover for Int Garret-Dr Matthews Objective Last Vital Signs Date Time Temp Pulse Resp B/P (MAP) Pulse Ox O2 Delivery O2 Flow Rate FiO2 12/19/18 11:00 98 24 145/79 (101) 100 12/19/18 10:59 25 12/19/18 10:15 Mechanical Ventilator 12/19/18 08:00 99.1 Laboratory Tests Test 12/19/18 04:00 12/19/18 09:13 White Blood Count 15.2 K/UL (4.8-10.8) H Red Blood Count 3.61 M/UL (4.70-6.10) L Hemoglobin 9.3 G/DL (14.2-18.0) L Hematocrit 29.0 % (42.0-52.0) L Mean Corpuscular Volume 80 FL (80-99) Mean Corpuscular Hemoglobin 25.9 PG (27.0-31.0) L Mean Corpuscular Hemoglobin Concent 32.2 G/DL (32.0-36.0) Red Cell Distribution Width 17.5 % (11.6-14.8) H Platelet Count 288 K/UL (150-450) Mean Platelet Volume 9.9 FL (6.5-10.1) Neutrophils (%) (Auto) 77.5 % (45.0-75.0) H Lymphocytes (%) (Auto) 12.3 % (20.0-45.0) L Monocytes (%) (Auto) 6.1 % (1.0-10.0) Eosinophils (%) (Auto) 3.2 % (0.0-3.0) H Basophils (%) (Auto) 0.9 % (0.0-2.0) Sodium Level 134 MMOL/L (136-145) L Potassium Level 5.1 MMOL/L (3.5-5.1) Chloride Level 103 MMOL/L (98-107) Carbon Dioxide Level 22 MMOL/L (21-32) Anion Gap 9 mmol/L (5-15) Blood Urea Nitrogen 33 mg/dL (7-18) H Creatinine 1.0 MG/DL (0.55-1.30) Estimat Glomerular Filtration Rate mL/min (>60) Glucose Level 116 MG/DL (74-106) H Calcium Level 8.6 MG/DL (8.5-10.1) Phosphorus Level 4.9 MG/DL (2.5-4.9) Magnesium Level 1.6 MG/DL (1.8-2.4) L Total Bilirubin 0.7 MG/DL (0.2-1.0) Aspartate Amino Transf (AST/SGOT) 22 U/L (15-37) Alanine Aminotransferase (ALT/SGPT) 22 U/L (12-78) Alkaline Phosphatase 144 U/L (46-116) H Total Protein 8.3 G/DL (6.4-8.2) H Albumin 1.6 G/DL (3.4-5.0) L Globulin 6.7 g/dL Albumin/Globulin Ratio 0.2 (1.0-2.7) L Arterial Blood pH 7.399 (7.350-7.450) Arterial Blood Partial Pressure CO2 33.2 mmHg (35.0-45.0) L Arterial Blood Partial Pressure O2 92.5 mmHg (75.0-100.0) Arterial Blood HCO3 20.1 mmol/L (22.0-26.0) L Arterial Blood Oxygen Saturation 96.3 % (95-100) Arterial Blood Base Excess -4.1 (-2-2) L Aroldo Test Positive Intake and Output 12/18/18 12/19/18 19:00 07:00 Intake Total 1320 ml 2003 ml Output Total 900 ml 1175 ml Balance 420 ml 828 ml Free Water 120 ml IV Total 600 ml 1163 ml Tube Feeding 720 ml 720 ml Output Urine Total 900 ml 1175 ml Stool Total 0 ml # Bowel Movements 3 3 Objective General Appearance: WD/WN, no apparent distress, lethargic EENT: PERRL/EOMI, normal ENT inspection Neck: non-tender, normal alignment, supple, normal inspection Cardiovascular: normal peripheral pulses, normal rate, regular rhythm, no gallop/murmur, no JVD Respiratory/Chest: Mech vent; chest wall non-tender, respiratory distress, crackles/rales, rhonchi - bilaterally, expiratory wheezing Abdomen: normal bowel sounds, non tender, soft, no organomegaly, no mass Extremities: normal range of motion, non-tender Skin: normal pigmentation, warm/dry Assessment/Plan Problem List: (1) Pneumonia Assessment & Plan: See ID note. Continue tegacycline (2) Anemia Assessment & Plan: S/P tansfusion 2 units PRBC 12/05/18. (3) Elevated troponin Assessment & Plan: See cardiology consult. (4) COPD (chronic obstructive pulmonary disease) (5) HTN (hypertension) Assessment & Plan: Currently on levophed (6) CHF (congestive heart failure) Assessment & Plan: LVEF=55-60% (7) Diabetes mellitus, type II (8) Chronic renal failure Assessment & Plan: See nephrology note. (9) Dysphagia (10) CAD (coronary artery disease) (11) Acute respiratory failure Assessment & Plan: Failed Weaning protocol; Continue mech vent per pulm. Possible tracheostomy 12/19 or 12/20/18 (12) Hypothyroidism Status: not improved Roni Carson MD Dec 19, 2018 12:22
--- NOTE | 2018-12-19 12:30 | NUR ---
NURSE NOTES: Consent obtained from Family member, witness are maxwell and DARIANA Perera by telephone consent, will continue to monitor.
--- NOTE | 2018-12-19 13:23 | Diagnostic Imaging Report ---
Indication: Dyspnea Comparison: 12/18/2018 A single view chest radiograph was obtained. Findings: Patchy infiltrates noted bilaterally. Tubes and lines are stable. IMPRESSION: No change from the prior day
--- NOTE | 2018-12-19 13:28 | Infectious Diseases Prog Note ---
Assessment/Plan Assessment/Plan Assessment: Severe Sepsis- likely 2ry to PNA, r/o bacteremia, UTI. Possible Flu despite neg screen test -CXR: Bilateral diffuse interstitial and airspace infiltrates versus edema, worsening on the right over one day -Bcx NTD -u/a wbc 40-60, nit neg, leuk large; ucx 10-20 k P. mirablis ESBL (S Meropenem, Zosyn) -sp cx p -influenza sc, legionela ag urine neg Fever, improving Leukocytosis stable Acute respiratory failure s/p intubation 12/04 ELICIA, improving COPD DM2 HTN dysphagia s/p G-tube dementia SNF resident Plan: - Continue Tigecycline #8/10 for Acinetobacter Restart INH Colistin #2 - INH colistin #1 D/C 12/13/18 -12/10/18 IV Vancomycin #7 and Meropenem #6 for PNA and UTI -12/10 SP Tamiflu #6 -12/05 AMikacin and Ertapenem #2 -12/07/18 SP empiric Azithromycin #3 -f/u cx -Monitor CBC/CMP, temperatures -ICU, ETT care -aspiration precautions Will continue to follow along with you. Subjective Allergies: Coded Allergies: No Known Allergies (Unverified , 12/04/18) Subjective Still on Vent 30% O2 Continued Leukocytosis Afebrile Objective Vital Signs Last 24 Hour Vital Signs Date Time Temp Pulse Resp B/P (MAP) Pulse Ox O2 Delivery O2 Flow Rate FiO2 12/19/18 13:05 88 22 25 12/19/18 12:00 Mechanical Ventilator Mechanical Ventilator 12/19/18 12:00 97.8 84 21 140/77 (98) 100 12/19/18 12:00 89 12/19/18 12:00 25 12/19/18 11:00 98 24 145/79 (101) 100 12/19/18 10:59 103 27 25 12/19/18 10:15 104 25 100 Mechanical Ventilator 25 12/19/18 10:04 104 26 100 Mechanical Ventilator 25 12/19/18 10:00 104 26 190/54 (99) 100 12/19/18 09:25 77 20 25 12/19/18 09:00 94 24 155/83 (107) 100 12/19/18 08:50 100 12/19/18 08:00 99.1 83 23 156/86 (109) 99 12/19/18 08:00 25 12/19/18 08:00 87 12/19/18 08:00 Mechanical Ventilator Mechanical Ventilator 12/19/18 07:58 25 12/19/18 07:58 25 12/19/18 07:48 88 23 25 12/19/18 07:43 84 22 25 12/19/18 07:00 86 22 154/78 (103) 100 12/19/18 06:00 90 25 161/77 (105) 100 12/19/18 05:13 88 28 25 12/19/18 05:00 87 25 161/77 (105) 100 12/19/18 04:00 25 12/19/18 04:00 99.5 87 25 161/77 (105) 100 12/19/18 04:00 90 12/19/18 04:00 Mechanical Ventilator 12/19/18 03:30 94 28 25 12/19/18 03:00 91 24 168/86 (113) 100 12/19/18 02:00 91 21 161/80 (107) 100 12/19/18 01:27 95 27 25 12/19/18 01:00 98 21 158/81 (106) 98 12/19/18 00:14 99.3 12/19/18 00:00 30 12/19/18 00:00 98 12/19/18 00:00 Mechanical Ventilator 12/19/18 00:00 99.6 98 24 166/84 (111) 100 12/18/18 23:41 102 27 25 12/18/18 23:00 100 23 166/84 (111) 100 12/18/18 22:00 100 21 166/84 (111) 100 12/18/18 21:51 107 28 100 Mechanical Ventilator 25 12/18/18 21:40 101 27 25 12/18/18 21:00 99.6 102 23 166/84 (111) 100 12/18/18 20:00 99 12/18/18 20:00 Mechanical Ventilator 12/18/18 20:00 30 12/18/18 20:00 99.9 102 23 153/78 (103) 100 12/18/18 19:32 96 23 25 12/18/18 19:00 96 23 154/82 (106) 100 12/18/18 18:00 97 24 157/85 (109) 100 12/18/18 17:00 94 23 152/75 (100) 100 12/18/18 16:50 91 22 25 12/18/18 16:00 98.2 96 23 147/83 (104) 100 12/18/18 16:00 Mechanical Ventilator 12/18/18 16:00 87 12/18/18 16:00 30 12/18/18 15:11 95 22 25 12/18/18 15:00 91 20 100/74 (83) 100 12/18/18 14:00 97 16 87/59 (68) 98 12/18/18 14:00 155/86 Height (Feet): 5 Height (Inches): 7.00 Weight (Pounds): 157 Objective Gen: NAD awake and tracking HEENT: NCAT Lungs: CTAB Heart: HR/BP stable Abdomen: soft, active bowel sounds Extremities: no C/C/E Laboratory Tests Test 12/19/18 04:00 12/19/18 09:13 White Blood Count 15.2 K/UL (4.8-10.8) H Red Blood Count 3.61 M/UL (4.70-6.10) L Hemoglobin 9.3 G/DL (14.2-18.0) L Hematocrit 29.0 % (42.0-52.0) L Mean Corpuscular Volume 80 FL (80-99) Mean Corpuscular Hemoglobin 25.9 PG (27.0-31.0) L Mean Corpuscular Hemoglobin Concent 32.2 G/DL (32.0-36.0) Red Cell Distribution Width 17.5 % (11.6-14.8) H Platelet Count 288 K/UL (150-450) Mean Platelet Volume 9.9 FL (6.5-10.1) Neutrophils (%) (Auto) 77.5 % (45.0-75.0) H Lymphocytes (%) (Auto) 12.3 % (20.0-45.0) L Monocytes (%) (Auto) 6.1 % (1.0-10.0) Eosinophils (%) (Auto) 3.2 % (0.0-3.0) H Basophils (%) (Auto) 0.9 % (0.0-2.0) Sodium Level 134 MMOL/L (136-145) L Potassium Level 5.1 MMOL/L (3.5-5.1) Chloride Level 103 MMOL/L (98-107) Carbon Dioxide Level 22 MMOL/L (21-32) Anion Gap 9 mmol/L (5-15) Blood Urea Nitrogen 33 mg/dL (7-18) H Creatinine 1.0 MG/DL (0.55-1.30) Estimat Glomerular Filtration Rate mL/min (>60) Glucose Level 116 MG/DL (74-106) H Calcium Level 8.6 MG/DL (8.5-10.1) Phosphorus Level 4.9 MG/DL (2.5-4.9) Magnesium Level 1.6 MG/DL (1.8-2.4) L Total Bilirubin 0.7 MG/DL (0.2-1.0) Aspartate Amino Transf (AST/SGOT) 22 U/L (15-37) Alanine Aminotransferase (ALT/SGPT) 22 U/L (12-78) Alkaline Phosphatase 144 U/L (46-116) H Total Protein 8.3 G/DL (6.4-8.2) H Albumin 1.6 G/DL (3.4-5.0) L Globulin 6.7 g/dL Albumin/Globulin Ratio 0.2 (1.0-2.7) L Arterial Blood pH 7.399 (7.350-7.450) Arterial Blood Partial Pressure CO2 33.2 mmHg (35.0-45.0) L Arterial Blood Partial Pressure O2 92.5 mmHg (75.0-100.0) Arterial Blood HCO3 20.1 mmol/L (22.0-26.0) L Arterial Blood Oxygen Saturation 96.3 % (95-100) Arterial Blood Base Excess -4.1 (-2-2) L Aroldo Test Positive Current Medications Medications (Trade) Dose Ordered Sig/Courtney Route PRN Reason Start Time Stop Time Status Last Admin Dose Admin Acetaminophen (Tylenol) 650 mg Q4H PRN ORAL fever 12/04/18 14:00 01/03/19 13:59 12/18/18 20:27 Albuterol/ Ipratropium (Albuterol/ Ipratropium) 3 ml Q4H PRN HHN Shortness of Breath 12/15/18 10:45 12/20/18 10:44 Chlorhexidine Gluconate (Amna-Hex 2%) 1 applic DAILY@1999 TOPIC 12/13/18 20:00 01/12/19 19:59 12/18/18 20:26 Colistimethate Sodium (Colistin *inhalation use only*) 150 mg Q12HR@10,22 INH 12/18/18 10:00 12/25/18 09:59 12/19/18 10:04 Heparin Sodium (Porcine) (Heparin 5000 units/ml) 5,000 units EVERY 12 HOURS SUBQ 12/04/18 21:00 01/03/19 20:59 12/19/18 09:29 Levothyroxine Sodium (Synthroid) 25 mcg DAILY@0630 ORAL 12/09/18 06:30 01/08/19 06:29 12/19/18 06:12 Lorazepam (Ativan 2mg/ml 1ml) 0.5 mg Q6H PRN IV For Anxiety 12/14/18 15:15 12/21/18 15:14 12/15/18 22:13 Norepinephrine Bitartrate 4 mg/ Dextrose 254 ml @ 0 mls/hr Q24H IV 12/04/18 14:00 01/03/19 13:59 Pantoprazole (Protonix) 40 mg DAILY IVP 12/05/18 09:00 01/04/19 08:59 12/19/18 09:27 Tigecycline 50 mg/ Sodium Chloride 110 ml @ 220 mls/hr EVERY 12 HOURS IVPB 12/10/18 21:00 12/21/18 20:59 12/19/18 09:28 Rayo Bhatti MD Dec 19, 2018 13:28
--- NOTE | 2018-12-19 14:39 | Cardiac Electrophysiology PN ---
Assessment/Plan Assessment/Plan 1. CHF with elevated BNP. Echo EF 55% to 60% with diastolic dysfunction. 2. Respiratory failure on the ventilator and IV antibiotic per ID and Dr. Fritz. May need tracheostomy 3. Hypertension. Off meds. 4. Severe sepsis, likely due to pneumonia 5. Diabetes 6. Dysphagia, status post PEG placement. 7. Azotemia, DW RN Subjective Subjective In ICU on the vent in NAD. Alert and responsive. Failed weaning again. Objective Last 24 Hour Vital Signs Date Time Temp Pulse Resp B/P (MAP) Pulse Ox O2 Delivery O2 Flow Rate FiO2 12/19/18 14:00 87 23 144/69 (94) 100 12/19/18 14:00 144/69 12/19/18 13:05 88 22 25 12/19/18 13:00 85 20 135/81 (99) 100 12/19/18 12:00 Mechanical Ventilator Mechanical Ventilator 12/19/18 12:00 97.8 84 21 140/77 (98) 100 12/19/18 12:00 89 12/19/18 12:00 25 12/19/18 11:00 98 24 145/79 (101) 100 12/19/18 10:59 103 27 25 12/19/18 10:15 104 25 100 Mechanical Ventilator 25 12/19/18 10:04 104 26 100 Mechanical Ventilator 25 12/19/18 10:00 104 26 190/54 (99) 100 12/19/18 09:25 77 20 25 12/19/18 09:00 94 24 155/83 (107) 100 12/19/18 08:50 100 12/19/18 08:00 99.1 83 23 156/86 (109) 99 12/19/18 08:00 25 12/19/18 08:00 87 12/19/18 08:00 Mechanical Ventilator Mechanical Ventilator 12/19/18 07:58 25 12/19/18 07:58 25 12/19/18 07:48 88 23 25 12/19/18 07:43 84 22 25 12/19/18 07:00 86 22 154/78 (103) 100 12/19/18 06:00 90 25 161/77 (105) 100 12/19/18 05:13 88 28 25 12/19/18 05:00 87 25 161/77 (105) 100 2/6/19 04:00 25 12/19/18 04:00 99.5 87 25 161/77 (105) 100 12/19/18 04:00 90 12/19/18 04:00 Mechanical Ventilator 12/19/18 03:30 94 28 25 12/19/18 03:00 91 24 168/86 (113) 100 12/19/18 02:00 91 21 161/80 (107) 100 12/19/18 01:27 95 27 25 12/19/18 01:00 98 21 158/81 (106) 98 12/19/18 00:14 99.3 12/19/18 00:00 30 12/19/18 00:00 98 12/19/18 00:00 Mechanical Ventilator 12/19/18 00:00 99.6 98 24 166/84 (111) 100 12/18/18 23:41 102 27 25 12/18/18 23:00 100 23 166/84 (111) 100 12/18/18 22:00 100 21 166/84 (111) 100 12/18/18 21:51 107 28 100 Mechanical Ventilator 25 12/18/18 21:40 101 27 25 12/18/18 21:00 99.6 102 23 166/84 (111) 100 12/18/18 20:00 99 12/18/18 20:00 Mechanical Ventilator 12/18/18 20:00 30 12/18/18 20:00 99.9 102 23 153/78 (103) 100 12/18/18 19:32 96 23 25 12/18/18 19:00 96 23 154/82 (106) 100 12/18/18 18:00 97 24 157/85 (109) 100 12/18/18 17:00 94 23 152/75 (100) 100 12/18/18 16:50 91 22 25 12/18/18 16:00 98.2 96 23 147/83 (104) 100 12/18/18 16:00 Mechanical Ventilator 12/18/18 16:00 87 12/18/18 16:00 30 12/18/18 15:11 95 22 25 12/18/18 15:00 91 20 100/74 (83) 100 Intake and Output 12/18/18 12/19/18 19:00 07:00 Intake Total 1320 ml 2003 ml Output Total 900 ml 1175 ml Balance 420 ml 828 ml Free Water 120 ml IV Total 600 ml 1163 ml Tube Feeding 720 ml 720 ml Output Urine Total 900 ml 1175 ml Stool Total 0 ml # Bowel Movements 3 3 Laboratory Tests Test 12/19/18 04:00 12/19/18 09:13 White Blood Count 15.2 K/UL (4.8-10.8) H Red Blood Count 3.61 M/UL (4.70-6.10) L Hemoglobin 9.3 G/DL (14.2-18.0) L Hematocrit 29.0 % (42.0-52.0) L Mean Corpuscular Volume 80 FL (80-99) Mean Corpuscular Hemoglobin 25.9 PG (27.0-31.0) L Mean Corpuscular Hemoglobin Concent 32.2 G/DL (32.0-36.0) Red Cell Distribution Width 17.5 % (11.6-14.8) H Platelet Count 288 K/UL (150-450) Mean Platelet Volume 9.9 FL (6.5-10.1) Neutrophils (%) (Auto) 77.5 % (45.0-75.0) H Lymphocytes (%) (Auto) 12.3 % (20.0-45.0) L Monocytes (%) (Auto) 6.1 % (1.0-10.0) Eosinophils (%) (Auto) 3.2 % (0.0-3.0) H Basophils (%) (Auto) 0.9 % (0.0-2.0) Sodium Level 134 MMOL/L (136-145) L Potassium Level 5.1 MMOL/L (3.5-5.1) Chloride Level 103 MMOL/L (98-107) Carbon Dioxide Level 22 MMOL/L (21-32) Anion Gap 9 mmol/L (5-15) Blood Urea Nitrogen 33 mg/dL (7-18) H Creatinine 1.0 MG/DL (0.55-1.30) Estimat Glomerular Filtration Rate mL/min (>60) Glucose Level 116 MG/DL (74-106) H Calcium Level 8.6 MG/DL (8.5-10.1) Phosphorus Level 4.9 MG/DL (2.5-4.9) Magnesium Level 1.6 MG/DL (1.8-2.4) L Total Bilirubin 0.7 MG/DL (0.2-1.0) Aspartate Amino Transf (AST/SGOT) 22 U/L (15-37) Alanine Aminotransferase (ALT/SGPT) 22 U/L (12-78) Alkaline Phosphatase 144 U/L (46-116) H Total Protein 8.3 G/DL (6.4-8.2) H Albumin 1.6 G/DL (3.4-5.0) L Globulin 6.7 g/dL Albumin/Globulin Ratio 0.2 (1.0-2.7) L Arterial Blood pH 7.399 (7.350-7.450) Arterial Blood Partial Pressure CO2 33.2 mmHg (35.0-45.0) L Arterial Blood Partial Pressure O2 92.5 mmHg (75.0-100.0) Arterial Blood HCO3 20.1 mmol/L (22.0-26.0) L Arterial Blood Oxygen Saturation 96.3 % (95-100) Arterial Blood Base Excess -4.1 (-2-2) L Aroldo Test Positive Objective HEAD AND NECK: Orally intubated. LUNGS: Coarse rhonchi. CARDIOVASCULAR: Regular S1 and S2 and mildly tachycardic. ABDOMEN: Status post G-tube. EXTREMITIES: No pitting edema. Darrell Cevallos MD Dec 19, 2018 14:39
--- NOTE | 2018-12-19 15:16 | Consultation ---
History of Present Illness General Date patient seen: Dec 19, 2018 Chief Complaint: Altered Level of Consciousness Reason for Consultation: trach eval Present Illness HPI 73 year old male currently admitted for medical care and management. In ICU on vent support for some time now with ET tube. surgery called to evaluate for trach placement. patient seen, chart reviewed, patient examined. Allergies: Coded Allergies: No Known Allergies (Unverified , 12/04/18) Medication History Scheduled Aspirin* (Aspir 81*), 81 MG ORAL DAILY, (Reported) Diltiazem HCl (Diltiazem 12Hr ER), 30 MG ORAL EVERY 8 HOURS, (Reported) Docusate Sodium* (Colace*), 100 MG ORAL DAILY, (Reported) Levothyroxine Sodium* (Synthroid*), 25 MCG ORAL DAILY, (Reported) Scheduled PRN Ipratropium [place] 0.5MG/2.5ML (Ipratropium [place] 0.5MG/2.5ML), 0.5 MG HHN Q6H PRN for Shortness of Breath, (Reported) Patient History Limited by: medical condition History Provided By: Medical Record, PMD Healthcare decision maker Resuscitation status Full Code Advanced Directive on File No Past Medical/Surgical History Past Medical/Surgical History: (1) Acute respiratory failure (2) tracheostomy consult (3) Feeding by G-tube (4) COPD (chronic obstructive pulmonary disease) (5) Anemia (6) CAD (coronary artery disease) (7) Dysphagia (8) Diabetes mellitus, type II (9) CHF (congestive heart failure) (10) Chronic renal failure (11) Pneumonia (12) HTN (hypertension) (13) Elevated troponin (14) ATN (acute tubular necrosis) (15) tracheostomy (16) Septic shock (17) Respiratory failure (18) Hypothyroidism (19) History of hypertension Review of Systems ROS Narrative cannot obtain given medical condition Physical Exam General Appearance: mild distress Lines, tubes and drains: other HEENT: mucous membranes moist Neck: normal inspection Respiratory/Chest: on vent Cardiovascular/Chest: normal rate Abdomen: soft Extremities: normal inspection Skin Exam: warm/dry Last 24 Hour Vital Signs Date Time Temp Pulse Resp B/P (MAP) Pulse Ox O2 Delivery O2 Flow Rate FiO2 12/19/18 15:01 85 22 25 12/19/18 14:00 87 23 144/69 (94) 100 12/19/18 14:00 144/69 12/19/18 13:05 88 22 25 12/19/18 13:00 85 20 135/81 (99) 100 12/19/18 12:00 Mechanical Ventilator Mechanical Ventilator 12/19/18 12:00 97.8 84 21 140/77 (98) 100 12/19/18 12:00 89 12/19/18 12:00 25 12/19/18 11:00 98 24 145/79 (101) 100 12/19/18 10:59 103 27 25 12/19/18 10:15 104 25 100 Mechanical Ventilator 25 12/19/18 10:04 104 26 100 Mechanical Ventilator 25 12/19/18 10:00 104 26 190/54 (99) 100 12/19/18 09:25 77 20 25 12/19/18 09:00 94 24 155/83 (107) 100 12/19/18 08:50 100 12/19/18 08:00 99.1 83 23 156/86 (109) 99 12/19/18 08:00 25 12/19/18 08:00 87 12/19/18 08:00 Mechanical Ventilator Mechanical Ventilator 12/19/18 07:58 25 12/19/18 07:58 25 12/19/18 07:48 88 23 25 12/19/18 07:43 84 22 25 12/19/18 07:00 86 22 154/78 (103) 100 12/19/18 06:00 90 25 161/77 (105) 100 12/19/18 05:13 88 28 25 12/19/18 05:00 87 25 161/77 (105) 100 12/19/18 04:00 25 12/19/18 04:00 99.5 87 25 161/77 (105) 100 12/19/18 04:00 90 12/19/18 04:00 Mechanical Ventilator 12/19/18 03:30 94 28 25 12/19/18 03:00 91 24 168/86 (113) 100 12/19/18 02:00 91 21 161/80 (107) 100 12/19/18 01:27 95 27 25 12/19/18 01:00 98 21 158/81 (106) 98 12/19/18 00:14 99.3 12/19/18 00:00 30 12/19/18 00:00 98 12/19/18 00:00 Mechanical Ventilator 12/19/18 00:00 99.6 98 24 166/84 (111) 100 12/18/18 23:41 102 27 25 12/18/18 23:00 100 23 166/84 (111) 100 12/18/18 22:00 100 21 166/84 (111) 100 12/18/18 21:51 107 28 100 Mechanical Ventilator 25 12/18/18 21:40 101 27 25 12/18/18 21:00 99.6 102 23 166/84 (111) 100 12/18/18 20:00 99 12/18/18 20:00 Mechanical Ventilator 12/18/18 20:00 30 12/18/18 20:00 99.9 102 23 153/78 (103) 100 12/18/18 19:32 96 23 25 12/18/18 19:00 96 23 154/82 (106) 100 12/18/18 18:00 97 24 157/85 (109) 100 12/18/18 17:00 94 23 152/75 (100) 100 12/18/18 16:50 91 22 25 12/18/18 16:00 98.2 96 23 147/83 (104) 100 12/18/18 16:00 Mechanical Ventilator 12/18/18 16:00 87 12/18/18 16:00 30 12/18/18 15:11 95 22 25 Intake and Output 12/18/18 12/19/18 19:00 07:00 Intake Total 1320 ml 2003 ml Output Total 900 ml 1175 ml Balance 420 ml 828 ml Free Water 120 ml IV Total 600 ml 1163 ml Tube Feeding 720 ml 720 ml Output Urine Total 900 ml 1175 ml Stool Total 0 ml # Bowel Movements 3 3 Laboratory Tests Test 12/19/18 04:00 12/19/18 09:13 White Blood Count 15.2 K/UL (4.8-10.8) H Red Blood Count 3.61 M/UL (4.70-6.10) L Hemoglobin 9.3 G/DL (14.2-18.0) L Hematocrit 29.0 % (42.0-52.0) L Mean Corpuscular Volume 80 FL (80-99) Mean Corpuscular Hemoglobin 25.9 PG (27.0-31.0) L Mean Corpuscular Hemoglobin Concent 32.2 G/DL (32.0-36.0) Red Cell Distribution Width 17.5 % (11.6-14.8) H Platelet Count 288 K/UL (150-450) Mean Platelet Volume 9.9 FL (6.5-10.1) Neutrophils (%) (Auto) 77.5 % (45.0-75.0) H Lymphocytes (%) (Auto) 12.3 % (20.0-45.0) L Monocytes (%) (Auto) 6.1 % (1.0-10.0) Eosinophils (%) (Auto) 3.2 % (0.0-3.0) H Basophils (%) (Auto) 0.9 % (0.0-2.0) Sodium Level 134 MMOL/L (136-145) L Potassium Level 5.1 MMOL/L (3.5-5.1) Chloride Level 103 MMOL/L (98-107) Carbon Dioxide Level 22 MMOL/L (21-32) Anion Gap 9 mmol/L (5-15) Blood Urea Nitrogen 33 mg/dL (7-18) H Creatinine 1.0 MG/DL (0.55-1.30) Estimat Glomerular Filtration Rate mL/min (>60) Glucose Level 116 MG/DL (74-106) H Calcium Level 8.6 MG/DL (8.5-10.1) Phosphorus Level 4.9 MG/DL (2.5-4.9) Magnesium Level 1.6 MG/DL (1.8-2.4) L Total Bilirubin 0.7 MG/DL (0.2-1.0) Aspartate Amino Transf (AST/SGOT) 22 U/L (15-37) Alanine Aminotransferase (ALT/SGPT) 22 U/L (12-78) Alkaline Phosphatase 144 U/L (46-116) H Total Protein 8.3 G/DL (6.4-8.2) H Albumin 1.6 G/DL (3.4-5.0) L Globulin 6.7 g/dL Albumin/Globulin Ratio 0.2 (1.0-2.7) L Arterial Blood pH 7.399 (7.350-7.450) Arterial Blood Partial Pressure CO2 33.2 mmHg (35.0-45.0) L Arterial Blood Partial Pressure O2 92.5 mmHg (75.0-100.0) Arterial Blood HCO3 20.1 mmol/L (22.0-26.0) L Arterial Blood Oxygen Saturation 96.3 % (95-100) Arterial Blood Base Excess -4.1 (-2-2) L Aroldo Test Positive Height (Feet): 5 Height (Inches): 7.00 Weight (Pounds): 157 Medications Current Medications Medications (Trade) Dose Ordered Sig/Courtney Route PRN Reason Start Time Stop Time Status Last Admin Dose Admin Acetaminophen (Tylenol) 650 mg Q4H PRN ORAL fever 12/04/18 14:00 01/03/19 13:59 12/18/18 20:27 Albuterol/ Ipratropium (Albuterol/ Ipratropium) 3 ml Q4H PRN HHN Shortness of Breath 12/15/18 10:45 12/20/18 10:44 Chlorhexidine Gluconate (Amna-Hex 2%) 1 applic DAILY@2000 TOPIC 12/13/18 20:00 01/12/19 19:59 12/18/18 20:26 Colistimethate Sodium (Colistin *inhalation use only*) 150 mg Q12HR@10,22 INH 12/18/18 10:00 12/25/18 09:59 12/19/18 10:04 Heparin Sodium (Porcine) (Heparin 5000 units/ml) 5,000 units EVERY 12 HOURS SUBQ 12/04/18 21:00 01/03/19 20:59 12/19/18 09:29 Levothyroxine Sodium (Synthroid) 25 mcg DAILY@0630 ORAL 12/09/18 06:30 01/08/19 06:29 12/19/18 06:12 Lorazepam (Ativan 2mg/ml 1ml) 0.5 mg Q6H PRN IV For Anxiety 12/14/18 15:15 12/21/18 15:14 12/15/18 22:13 Norepinephrine Bitartrate 4 mg/ Dextrose 254 ml @ 0 mls/hr Q24H IV 12/04/18 14:00 01/03/19 13:59 Pantoprazole (Protonix) 40 mg DAILY IVP 12/05/18 09:00 01/04/19 08:59 12/19/18 09:27 Tigecycline 50 mg/ Sodium Chloride 110 ml @ 220 mls/hr EVERY 12 HOURS IVPB 12/10/18 21:00 12/21/18 20:59 12/19/18 09:28 Assessment/Plan Problem List: (1) Acute respiratory failure Assessment & Plan: acute respiratory insufficiency unable to wean from ventilator likely requiring prolonged ventilatory support plan for Trach tomorrow consent obtained. npo p mn ICD Codes: J96.00 - Acute respiratory failure, unspecified whether with hypoxia or hypercapnia SNOMED: 21842895 (2) tracheostomy consult (3) Respiratory failure ICD Codes: J96.90 - Respiratory failure, unspecified, unspecified whether with hypoxia or hypercapnia SNOMED: 543652166 Juan Peters Dec 19, 2018 15:16
--- NOTE | 2018-12-19 15:17 | Pre-Procedure Note/Attestation ---
Pre-Procedure Note/Attestation Complete Prior to Procedure Planned Procedure: not applicable Procedure Narrative: tracheostomy Indications for Procedure Pre-Operative Diagnosis: respiratory insufficiency requiring prolonged ventilatory support Attestation I attest that I discussed the nature of the procedure; its benefits; risks and complications; and alternatives (and the risks and benefits of such alternatives ), prior to the procedure, with the patient (or the patient's legal jewelry sales representative). I attest that, if there was a reasonable possibility of needing a blood transfusion, the patient (or the patient's legal jewelry sales representative) was given the [facility] standardized written summary, pursuant to the Yovani Marry Blood Safety Act ([place] Health and Safety Code # 1645, as amended). I attest that I re-evaluated the patient just prior to the surgery and that there has been no change in the patient's H&P, except as documented below: Juan Peters Dec 19, 2018 15:17
[2018-12-19] MEDS ORDERED: Tubing IV Secondary IV ONE (15:29)
--- NOTE | 2018-12-19 15:45 | NUR ---
NURSE NOTES: Dr. Peters verified trach placement will be tomorrow, Consent obtained from family. Patient remains sleeping with no ditress noted on AC 16, TV: 600 and Fio2 of 25%. remains on tube feeding at 60ml/hr with no residual noted, Andrade remains draining clear pale yellow urine, will continue plan of care.
--- NOTE | 2018-12-19 16:45 | NUR ---
NURSE NOTES: patient sacral region observed for wound, wound looks healing with no open skin, covered with Calazime and cleansed with saline, wound is pink with skin intact. will continue to monitor.
--- NOTE | 2018-12-19 19:07 | NUR ---
HAND-OFF: Report given to DARIANA Young.
--- NOTE | 2018-12-19 19:30 | NUR ---
NURSE NOTES: Received pt in no acute distress; awake, alert, calm, follows commands but non verbal. Remains orally intubated, appears to be tolerating current vent settings; sats 100% on fio2 .25. Secretions copious, white via ETT; breath sounds diminished. NSR on the monitor; BP stable. GT patent; GTF with Jevity 1.2 continues at 60ml/h with 0 residuals. PICC on BRADLEY intact; IVF at TKO. FC patent; UOP 60-75ml/h. Bilat soft wrist restraints on as pt tends to be impulsive and attempts to pull the device. Pt scheduled for tracheostomy db. Plan of care explained. Will continue to monitor.
[2018-12-19] MEDS: Dyna-Hex 2% Top Sol 2oz TOPIC SCH (20:18)
--- NOTE | 2018-12-19 22:00 | NUR ---
NURSE NOTES: Calm,awake watches TV. Oral care and suctioning done. Still with large amt of oral secretions. Pre op checklist carried out. Heparin dose held.
[2018-12-20] VITALS (28 sets, daily range): BP systolic 101–147; BP diastolic 56–82
--- NOTE | 2018-12-20 | NUR ---
NURSE NOTES: Low grade temps; 99.3 axillary. Extra covers removed. Stopped GTF; pt now NPO. Irrigated rectal tube. ST; BP stable.
[2018-12-20] MEDS: LORazepam Inj 2mg/ml 1ml IV PRN (02:41)
--- NOTE | 2018-12-20 02:41 | NUR ---
NURSE NOTES: Awake and mildly restless.Ativan 0.5mg IVP given. Repositioned; kept HOB elevated.
--- NOTE | 2018-12-20 04:30 | NUR ---
NURSE NOTES: Complete bed bath done. Rectal tube intact; no leaks. Irrigated. FC patent. Pt remains NPO. VSS, no distress.
[2018-12-20 05:47] LABS: BASOPHILS % (AUTO) 1.1 % (0.0-2.0); EOSINOPHILS % (AUTO) 2.7 % (0.0-3.0); HEMATOCRIT 29.2 % (42.0-52.0); HEMOGLOBIN 9.4 G/DL (14.2-18.0); LYMPHOCYTES % (AUTO) 16.5 % (20.0-45.0); MEAN CORPUSCULAR VOLUME 80 FL (80-99); MONOCYTES % (AUTO) 7.7 % (1.0-10.0); NEUTROPHILS % (AUTO) 72.1 % (45.0-75.0); PLATELET COUNT 290 K/UL (150-450); RED BLOOD COUNT 3.66 M/UL (4.70-6.10); RED CELL DISTRIBUTION WIDTH 17.7 % (11.6-14.8); WHITE BLOOD COUNT 15.5 K/UL (4.8-10.8)
[2018-12-20 06:24] LABS: ALANINE AMINOTRANSFERASE 19 U/L (12-78); ALBUMIN 1.6 G/DL (3.4-5.0); ALBUMIN/GLOBULIN RATIO 0.2 (1.0-2.7); ALKALINE PHOSPHATASE 144 U/L (46-116); ANION GAP 9 mmol/L (5-15); ASPARTATE AMINO TRANSFERASE 20 U/L (15-37); BILIRUBIN,TOTAL 0.8 MG/DL (0.2-1.0); BLOOD UREA NITROGEN 33 mg/dL (7-18); CARBON DIOXIDE 22 MMOL/L (21-32); CHLORIDE 103 MMOL/L (98-107); CREATININE 1.1 MG/DL (0.55-1.30); POTASSIUM 5.1 MMOL/L (3.5-5.1); SODIUM 134 MMOL/L (136-145)
[2018-12-20] MEDS: Levothyroxine 25mcg tab ORAL SCH (06:30)
--- NOTE | 2018-12-20 07:11 | NUR ---
HAND-OFF: Report given to Misti Stevens RN.
--- NOTE | 2018-12-20 07:20 | NUR ---
RESPIRATORY NOTE: received pt intubated with ett 8.0 placed 24cm at the lip, secured via anchor fast with no redness or skin tear around facial or neck area. no resp distress noted at this time. vent settings are current. ambu bag at bedside with vent plugged into red outlet. alarms are on and audible. will cont to monitor.
[2018-12-20] MEDS: Heparin 5000 units/ml inj SUBQ SCH ×2 (07:33→20:14)
[2018-12-20] MEDS: Pantoprazole Inj IVP SCH (08:35)
[2018-12-20] MEDS: Tigecycline 50 MG in NS 110 ML IVPB SCH ×2 (08:36→21:00)
--- NOTE | 2018-12-20 09:25 | Infectious Diseases Prog Note ---
Assessment/Plan Assessment/Plan Assessment: Severe Sepsis- likely 2ry to PNA, r/o bacteremia, UTI. Possible Flu despite neg screen test -CXR: Bilateral diffuse interstitial and airspace infiltrates versus edema, worsening on the right over one day -Bcx NTD -u/a wbc 40-60, nit neg, leuk large; ucx 10-20 k P. mirablis ESBL (S Meropenem, Zosyn) -sp cx p -influenza sc, legionela ag urine neg CT Chest 12/20/18 - Pulmonary infiltrates demonstrated bilaterally with most of airspace disease in the lower lobes right worse than left. Findings may be due to pneumonia. Please correlate clinically. Small bilateral pleural effusions slightly larger on the right. Small airways/reticular densities (tree-in-bud) also demonstrated. Differential diagnosis is large. Findings could certainly be related to bronchopneumonia, especially aspiration. Numerous other possibilities including bronchiolitis, TB , fungal, connective tissue disorders, among others. Fever, improving Leukocytosis stable Acute respiratory failure s/p intubation 12/04 ELICIA, improving COPD DM2 HTN dysphagia s/p G-tube dementia SNF resident Plan: - Continue Tigecycline #9/10 for Acinetobacter Restart INH Colistin #3 - INH colistin #1 D/C 12/13/18 - Repeat sputum Cx and blood Cx - Consider bronch given CT findings -12/10/18 IV Vancomycin #7 and Meropenem #6 for PNA and UTI -12/10 SP Tamiflu #6 -12/05 AMikacin and Ertapenem #2 -12/07/18 SP empiric Azithromycin #3 -f/u cx -Monitor CBC/CMP, temperatures -ICU, ETT care -aspiration precautions Will continue to follow along with you. Subjective Allergies: Coded Allergies: No Known Allergies (Unverified , 12/04/18) Subjective Still on Vent 30% O2, Failing weening trials Continued Leukocytosis Afebrile Objective Vital Signs Last 24 Hour Vital Signs Date Time Temp Pulse Resp B/P (MAP) Pulse Ox O2 Delivery O2 Flow Rate FiO2 12/20/18 08:38 98 20 25 12/20/18 08:00 25 12/20/18 08:00 104 12/20/18 08:00 Mechanical Ventilator Mechanical Ventilator 12/20/18 08:00 99.6 102 21 119/69 (86) 99 12/20/18 07:17 104 21 25 12/20/18 07:00 103 20 109/69 (82) 100 12/20/18 06:00 104 21 101/60 (74) 98 12/20/18 05:00 103 21 103/71 (82) 99 12/20/18 04:39 96 23 25 12/20/18 04:00 Mechanical Ventilator 12/20/18 04:00 103 12/20/18 04:00 25 12/20/18 04:00 99.2 99 25 109/56 (73) 100 12/20/18 03:00 102 21 130/61 (84) 100 12/20/18 02:44 96 20 25 12/20/18 02:00 100 18 121/67 (85) 99 12/20/18 01:07 103 24 25 12/20/18 01:00 105 21 116/65 (82) 100 12/20/18 00:00 Mechanical Ventilator 12/20/18 00:00 25 12/20/18 00:00 99.5 100 23 127/64 (85) 100 12/20/18 00:00 100 12/19/18 23:00 101 21 124/69 (87) 100 12/19/18 22:56 100 24 25 12/19/18 22:00 103 24 133/67 (89) 100 12/19/18 21:24 101 22 100 Mechanical Ventilator 25 12/19/18 21:16 103 26 98 Mechanical Ventilator 25 12/19/18 21:15 103 26 25 12/19/18 21:00 105 24 128/66 (86) 100 12/19/18 20:00 99.6 96 25 138/67 (90) 100 12/19/18 20:00 Mechanical Ventilator Mechanical Ventilator 12/19/18 20:00 99 12/19/18 20:00 25 12/19/18 19:29 98 23 25 12/19/18 19:00 93 21 128/66 (86) 100 12/19/18 18:00 88 21 136/59 (84) 100 12/19/18 17:00 90 23 126/68 (87) 100 12/19/18 16:57 93 24 25 12/19/18 16:50 89 12/19/18 16:00 99.2 93 21 131/74 (93) 100 12/19/18 16:00 25 12/19/18 16:00 Mechanical Ventilator Mechanical Ventilator 12/19/18 15:01 85 22 25 12/19/18 15:00 88 21 145/63 (90) 100 12/19/18 14:00 87 23 144/69 (94) 100 12/19/18 14:00 144/69 12/19/18 13:05 88 22 25 12/19/18 13:00 85 20 135/81 (99) 100 12/19/18 12:00 Mechanical Ventilator Mechanical Ventilator 12/19/18 12:00 97.8 84 21 140/77 (98) 100 12/19/18 12:00 89 12/19/18 12:00 25 12/19/18 11:00 98 24 145/79 (101) 100 12/19/18 10:59 103 27 25 12/19/18 10:15 104 25 100 Mechanical Ventilator 25 12/19/18 10:04 104 26 100 Mechanical Ventilator 25 12/19/18 10:00 104 26 190/54 (99) 100 12/19/18 09:25 77 20 25 Height (Feet): 5 Height (Inches): 6.00 Weight (Pounds): 160 Objective Gen: NAD awake and tracking HEENT: NCAT, MMM, Intubated Abdomen: soft, active bowel sounds Extremities: no C/C/E Laboratory Tests Test 12/20/18 04:00 White Blood Count 15.5 K/UL (4.8-10.8) H Red Blood Count 3.66 M/UL (4.70-6.10) L Hemoglobin 9.4 G/DL (14.2-18.0) L Hematocrit 29.2 % (42.0-52.0) L Mean Corpuscular Volume 80 FL (80-99) Mean Corpuscular Hemoglobin 25.6 PG (27.0-31.0) L Mean Corpuscular Hemoglobin Concent 32.1 G/DL (32.0-36.0) Red Cell Distribution Width 17.7 % (11.6-14.8) H Platelet Count 290 K/UL (150-450) Mean Platelet Volume 8.1 FL (6.5-10.1) Neutrophils (%) (Auto) 72.1 % (45.0-75.0) Lymphocytes (%) (Auto) 16.5 % (20.0-45.0) L Monocytes (%) (Auto) 7.7 % (1.0-10.0) Eosinophils (%) (Auto) 2.7 % (0.0-3.0) Basophils (%) (Auto) 1.1 % (0.0-2.0) Sodium Level 134 MMOL/L (136-145) L Potassium Level 5.1 MMOL/L (3.5-5.1) Chloride Level 103 MMOL/L (98-107) Carbon Dioxide Level 22 MMOL/L (21-32) Anion Gap 9 mmol/L (5-15) Blood Urea Nitrogen 33 mg/dL (7-18) H Creatinine 1.1 MG/DL (0.55-1.30) Estimat Glomerular Filtration Rate mL/min (>60) Glucose Level 81 MG/DL (74-106) Calcium Level 8.0 MG/DL (8.5-10.1) L Phosphorus Level 5.0 MG/DL (2.5-4.9) H Magnesium Level 2.0 MG/DL (1.8-2.4) Total Bilirubin 0.8 MG/DL (0.2-1.0) Aspartate Amino Transf (AST/SGOT) 20 U/L (15-37) Alanine Aminotransferase (ALT/SGPT) 19 U/L (12-78) Alkaline Phosphatase 144 U/L (46-116) H Total Protein 8.2 G/DL (6.4-8.2) Albumin 1.6 G/DL (3.4-5.0) L Globulin 6.6 g/dL Albumin/Globulin Ratio 0.2 (1.0-2.7) L Current Medications Medications (Trade) Dose Ordered Sig/Courtney Route PRN Reason Start Time Stop Time Status Last Admin Dose Admin Acetaminophen (Tylenol) 650 mg Q4H PRN ORAL fever 12/04/18 14:00 01/03/19 13:59 12/18/18 20:27 Albuterol/ Ipratropium (Albuterol/ Ipratropium) 3 ml Q4H PRN HHN Shortness of Breath 12/15/18 10:45 12/20/18 10:44 Chlorhexidine Gluconate (Amna-Hex 2%) 1 applic DAILY@2000 TOPIC 12/13/18 20:00 01/12/19 19:59 12/19/18 20:18 Colistimethate Sodium (Colistin *inhalation use only*) 150 mg Q12HR@10,22 INH 12/18/18 10:00 12/25/18 09:59 12/19/18 21:21 Heparin Sodium (Porcine) (Heparin 5000 units/ml) 5,000 units EVERY 12 HOURS SUBQ 12/04/18 21:00 01/03/19 20:59 12/19/18 09:29 Levothyroxine Sodium (Synthroid) 25 mcg DAILY@0630 ORAL 12/09/18 06:30 01/08/19 06:29 12/19/18 06:12 Lorazepam (Ativan 2mg/ml 1ml) 0.5 mg Q6H PRN IV For Anxiety 12/14/18 15:15 12/21/18 15:14 12/20/18 02:41 Norepinephrine Bitartrate 4 mg/ Dextrose 254 ml @ 0 mls/hr Q24H IV 12/04/18 14:00 01/03/19 13:59 Pantoprazole (Protonix) 40 mg DAILY IVP 12/05/18 09:00 01/04/19 08:59 12/20/18 08:35 Tigecycline 50 mg/ Sodium Chloride 110 ml @ 220 mls/hr EVERY 12 HOURS IVPB 12/10/18 21:00 12/21/18 20:59 12/20/18 08:36 Rayo Bhatti MD Dec 20, 2018 09:25
--- NOTE | 2018-12-20 09:25 | Anethesia Preoperative Eval ---
Anesthesia Pre-op PMH/ROS General Date of Evaluation: Dec 20, 2018 Time of Evaluation: 06:46 Anesthesiologist: Kavita ASA Score: ASA 4 Mallampati Score Class I : Soft palate, uvula, fauces, pillars visible Class II: Soft palate, uvula, fauces visible Class III: Soft palate, base of uvula visible Class IV: Only hard plate visible Mallampati Classification: Class III - Intubated Surgeon: Fran Diagnosis: Acute Ventilatory Failure Surgical Procedure: Tracheostomy Anesthesia History: none Family History: no anesthesia problems Allergies: Coded Allergies: No Known Allergies (Unverified , 12/04/18) Medications: see eMAR Patient NPO?: Yes NPO Date: Dec 20, 2018 NPO Time: 0000 Past Medical History Cardiovascular: Reports: HTN, CAD, other - CHF Pulmonary: Reports: COPD, other - Acute Ventilatory Failure Gastrointestinal/Genitourinary: Reports: other - ATN Neurologic/Psychiatric: Reports: other - AMS Endocrine: Reports: DM, hypothyroidism Hematology/Immune: Reports: anemia, other - Severe Spsis PSxH Narrative: G-Tube Anesthesia Pre-op Phys. Exam Physician Exam Last Vital Signs Date Time Temp Pulse Resp B/P (MAP) Pulse Ox O2 Delivery O2 Flow Rate FiO2 12/20/18 08:38 98 20 25 12/20/18 08:00 Mechanical Ventilator Mechanical Ventilator 12/20/18 08:00 99.6 119/69 (86) 99 Constitutional: other - AMS Neurologic: other - Intubated Cardiovascular: other - Mechanical Ventilator Respiratory: other - Crackles/rales, rhonchi - bilaterally Airway Exam Mallampati Score: Class III MO: limited - Unable to evaluate Neck: Intubated ROM: limited - Unable to Evaluate Teeth: missing, intact Anesthesia Pre-op A/P Labs Hematology Test 12/20/18 04:00 White Blood Count 15.5 K/UL (4.8-10.8) H Red Blood Count 3.66 M/UL (4.70-6.10) L Hemoglobin 9.4 G/DL (14.2-18.0) L Hematocrit 29.2 % (42.0-52.0) L Mean Corpuscular Volume 80 FL (80-99) Mean Corpuscular Hemoglobin 25.6 PG (27.0-31.0) L Mean Corpuscular Hemoglobin Concent 32.1 G/DL (32.0-36.0) Red Cell Distribution Width 17.7 % (11.6-14.8) H Platelet Count 290 K/UL (150-450) Mean Platelet Volume 8.1 FL (6.5-10.1) Neutrophils (%) (Auto) 72.1 % (45.0-75.0) Lymphocytes (%) (Auto) 16.5 % (20.0-45.0) L Monocytes (%) (Auto) 7.7 % (1.0-10.0) Eosinophils (%) (Auto) 2.7 % (0.0-3.0) Basophils (%) (Auto) 1.1 % (0.0-2.0) Chemistry Test 12/20/18 04:00 Sodium Level 134 MMOL/L (136-145) L Potassium Level 5.1 MMOL/L (3.5-5.1) Chloride Level 103 MMOL/L (98-107) Carbon Dioxide Level 22 MMOL/L (21-32) Anion Gap 9 mmol/L (5-15) Blood Urea Nitrogen 33 mg/dL (7-18) H Creatinine 1.1 MG/DL (0.55-1.30) Estimat Glomerular Filtration Rate mL/min (>60) Glucose Level 81 MG/DL (74-106) Calcium Level 8.0 MG/DL (8.5-10.1) L Phosphorus Level 5.0 MG/DL (2.5-4.9) H Magnesium Level 2.0 MG/DL (1.8-2.4) Total Bilirubin 0.8 MG/DL (0.2-1.0) Aspartate Amino Transf (AST/SGOT) 20 U/L (15-37) Alanine Aminotransferase (ALT/SGPT) 19 U/L (12-78) Alkaline Phosphatase 144 U/L (46-116) H Total Protein 8.2 G/DL (6.4-8.2) Albumin 1.6 G/DL (3.4-5.0) L Globulin 6.6 g/dL Albumin/Globulin Ratio 0.2 (1.0-2.7) L Risk Assessment & Plan Assessment: ASA 4 Plan: GA Status Change Before Surgery: No Pre-Antibiotics Drug: Reese Lorenzo MD Dec 20, 2018 09:25
--- NOTE | 2018-12-20 09:25 | Anethesia Preoperative Eval ---
Anesthesia Pre-op PMH/ROS General Date of Evaluation: Dec 20, 2018 Time of Evaluation: 09:19 Anesthesiologist: Chidi ASA Score: ASA 4 Mallampati Score Class I : Soft palate, uvula, fauces, pillars visible Class II: Soft palate, uvula, fauces visible Class III: Soft palate, base of uvula visible Class IV: Only hard plate visible Mallampati Classification: Class III Surgeon: Esa Diagnosis: Respiratory failure Surgical Procedure: Tracheostomy Anesthesia History: none Social History: smoking - h/o Family History: no anesthesia problems Allergies: Coded Allergies: No Known Allergies (Unverified , 12/04/18) Patient NPO?: Yes NPO Date: Dec 20, 2018 NPO Time: 0000 Past Medical History Cardiovascular: Reports: HTN, CAD, other - s/p cardiac arrest Pulmonary: Reports: COPD, other - recent pneumonia; Denies: asthma, OCTAVIAN[place] Gastrointestinal/Genitourinary: Reports: CRI, other - dysphagia PEG tube in place; Denies: GERD, ESRD Neurologic/Psychiatric: Reports: dementia, CVA; Denies: depression/anxiety, TIA, other Endocrine: Reports: DM, hypothyroidism; Denies: steroids, other HEENT: Denies: cataract (L), cataract (R), glaucoma, [place] (L), [place] (R), other Hematology/Immune: Reports: anemia Musculoskeletal/Integumentary: Reports: DJD, other - contracted; Denies: OA, RA, DDD, edema PMH Narrative: as above PSxH Narrative: see H&P Anesthesia Pre-op Phys. Exam Physician Exam Last Vital Signs Date Time Temp Pulse Resp B/P (MAP) Pulse Ox O2 Delivery O2 Flow Rate FiO2 12/20/18 08:38 98 20 25 12/20/18 08:00 Mechanical Ventilator Mechanical Ventilator 12/20/18 08:00 99.6 119/69 (86) 99 Constitutional: NAD Neurologic: other - unable to obtaine Cardiovascular: RRR Respiratory: other - diffuuse bilateral cracles Gastrointestinal: S/NT/ND Airway Exam Mallampati Score: Class III - orally intubated MO: limited Neck: stiff ROM: limited Teeth: missing Dentures: no upper, no lower Anesthesia Pre-op A/P Labs Hematology Test 12/20/18 04:00 White Blood Count 15.5 K/UL (4.8-10.8) H Red Blood Count 3.66 M/UL (4.70-6.10) L Hemoglobin 9.4 G/DL (14.2-18.0) L Hematocrit 29.2 % (42.0-52.0) L Mean Corpuscular Volume 80 FL (80-99) Mean Corpuscular Hemoglobin 25.6 PG (27.0-31.0) L Mean Corpuscular Hemoglobin Concent 32.1 G/DL (32.0-36.0) Red Cell Distribution Width 17.7 % (11.6-14.8) H Platelet Count 290 K/UL (150-450) Mean Platelet Volume 8.1 FL (6.5-10.1) Neutrophils (%) (Auto) 72.1 % (45.0-75.0) Lymphocytes (%) (Auto) 16.5 % (20.0-45.0) L Monocytes (%) (Auto) 7.7 % (1.0-10.0) Eosinophils (%) (Auto) 2.7 % (0.0-3.0) Basophils (%) (Auto) 1.1 % (0.0-2.0) Chemistry Test 12/20/18 04:00 Sodium Level 134 MMOL/L (136-145) L Potassium Level 5.1 MMOL/L (3.5-5.1) Chloride Level 103 MMOL/L (98-107) Carbon Dioxide Level 22 MMOL/L (21-32) Anion Gap 9 mmol/L (5-15) Blood Urea Nitrogen 33 mg/dL (7-18) H Creatinine 1.1 MG/DL (0.55-1.30) Estimat Glomerular Filtration Rate mL/min (>60) Glucose Level 81 MG/DL (74-106) Calcium Level 8.0 MG/DL (8.5-10.1) L Phosphorus Level 5.0 MG/DL (2.5-4.9) H Magnesium Level 2.0 MG/DL (1.8-2.4) Total Bilirubin 0.8 MG/DL (0.2-1.0) Aspartate Amino Transf (AST/SGOT) 20 U/L (15-37) Alanine Aminotransferase (ALT/SGPT) 19 U/L (12-78) Alkaline Phosphatase 144 U/L (46-116) H Total Protein 8.2 G/DL (6.4-8.2) Albumin 1.6 G/DL (3.4-5.0) L Globulin 6.6 g/dL Albumin/Globulin Ratio 0.2 (1.0-2.7) L Risk Assessment & Plan Assessment: ASA 4 Plan: GA with ETT Status Change Before Surgery: No Pre-Antibiotics Drug: Ancef 1gr. Given Within 1 Hr of Incision: Yes Jean Claude Murillo MD Dec 20, 2018 09:25
--- NOTE | 2018-12-20 09:30 | NUR ---
NURSE NOTES: Dr. Fritz notified regarding patient labs and upcoming trach placement, weaning will not be done today since patient in schedules for trach at 1230, tracheostomy placement will be placed by Dr. Peters, consent has been obtained from Nichay. no verbal orders given at this time,
[2018-12-20] MEDS: Colistin for inhalation INH SCH ×2 (09:51→22:00)
--- NOTE | 2018-12-20 09:56 | Pulmonolgy Critical Care Note ---
Critical Care - Asmt/Plan Problems: (1) Acute respiratory failure (2) Septic shock (3) Feeding by G-tube (4) ATN (acute tubular necrosis) (5) Diabetes mellitus, type II (6) COPD (chronic obstructive pulmonary disease) (7) History of hypertension (8) Hypothyroidism Respiratory: monitor respiratory rate, adjust FIO2, CXR Cardiac: continue pressors, continue to monitor HR/BP Renal: F/U I&O, keep IV fluid Infectious Disease: check cultures, continue antibiotics Gastrointestinal: continue feedings/current rate Endocrine: monitor blood sugar, check HgA1C Hematologic: monitor H/H, transfuse if hgb<8.5 Neurologic: PRN Ativan, keep patient comfortable Affect: PRN ativan Notes Reviewed: safety aide, renal Discussed with: nurses, consultants, case preparer and linerchannel marketing program manager - Objective Last 24 Hour Vital Signs Date Time Temp Pulse Resp B/P (MAP) Pulse Ox O2 Delivery O2 Flow Rate FiO2 12/20/18 09:52 94 16 100 Mechanical Ventilator 25 12/20/18 08:38 98 20 25 12/20/18 08:00 25 12/20/18 08:00 104 12/20/18 08:00 Mechanical Ventilator Mechanical Ventilator 12/20/18 08:00 99.6 102 21 119/69 (86) 99 12/20/18 07:17 104 21 25 12/20/18 07:00 103 20 109/69 (82) 100 12/20/18 06:00 104 21 101/60 (74) 98 12/20/18 05:00 103 21 103/71 (82) 99 12/20/18 04:39 96 23 25 12/20/18 04:00 Mechanical Ventilator 12/20/18 04:00 103 12/20/18 04:00 25 12/20/18 04:00 99.2 99 25 109/56 (73) 100 12/20/18 03:00 102 21 130/61 (84) 100 12/20/18 02:44 96 20 25 12/20/18 02:00 100 18 121/67 (85) 99 12/20/18 01:07 103 24 25 12/20/18 01:00 105 21 116/65 (82) 100 12/20/18 00:00 Mechanical Ventilator 12/20/18 00:00 25 12/20/18 00:00 99.5 100 23 127/64 (85) 100 12/20/18 00:00 100 12/19/18 23:00 101 21 124/69 (87) 100 12/19/18 22:56 100 24 25 12/19/18 22:00 103 24 133/67 (89) 100 12/19/18 21:24 101 22 100 Mechanical Ventilator 25 12/19/18 21:16 103 26 98 Mechanical Ventilator 25 12/19/18 21:15 103 26 25 12/19/18 21:00 105 24 128/66 (86) 100 12/19/18 20:00 99.6 96 25 138/67 (90) 100 12/19/18 20:00 Mechanical Ventilator Mechanical Ventilator 12/19/18 20:00 99 12/19/18 20:00 25 12/19/18 19:29 98 23 25 12/19/18 19:00 93 21 128/66 (86) 100 12/19/18 18:00 88 21 136/59 (84) 100 12/19/18 17:00 90 23 126/68 (87) 100 12/19/18 16:57 93 24 25 12/19/18 16:50 89 12/19/18 16:00 99.2 93 21 131/74 (93) 100 12/19/18 16:00 25 12/19/18 16:00 Mechanical Ventilator Mechanical Ventilator 12/19/18 15:01 85 22 25 12/19/18 15:00 88 21 145/63 (90) 100 12/19/18 14:00 87 23 144/69 (94) 100 12/19/18 14:00 144/69 12/19/18 13:05 88 22 25 12/19/18 13:00 85 20 135/81 (99) 100 12/19/18 12:00 Mechanical Ventilator Mechanical Ventilator 12/19/18 12:00 97.8 84 21 140/77 (98) 100 12/19/18 12:00 89 12/19/18 12:00 25 12/19/18 11:00 98 24 145/79 (101) 100 12/19/18 10:59 103 27 25 12/19/18 10:15 104 25 100 Mechanical Ventilator 25 12/19/18 10:04 104 26 100 Mechanical Ventilator 25 12/19/18 10:00 104 26 190/54 (99) 100 Status: awake Condition: critical Neck: full ROM Lungs: rales, rhonchi Heart: HR/BP stable Abdomen: soft, feeding tube Extremities: no C/C/E, edema Accucheck: 101 Critical Care - Subjective ROS Limited/Unobtainable: Yes Condition: critical EKG Rhythm: Sinus Rhythm FI02: 25 Vent Support Breath Rate: 16 Vent Support Mode: AC Vent Tidal Volume: 600 Sputum Amount: Small PEEP: 0.0 PIP: 23 Tube Feeding Amount: 0 I&O: Intake and Output 12/19/18 12/20/18 19:00 07:00 Intake Total 1260 ml 350 ml Output Total 1622 ml 1135 ml Balance -362 ml -785 ml Free Water 80 ml IV Total 460 ml 110 ml Tube Feeding 720 ml 240 ml Output Urine Total 1572 ml 985 ml Stool Total 50 ml 150 ml CXR: no change ET-Tube: 8.0 ET Position: 24 Labs: Laboratory Tests Test 12/20/18 04:00 White Blood Count 15.5 K/UL (4.8-10.8) H Red Blood Count 3.66 M/UL (4.70-6.10) L Hemoglobin 9.4 G/DL (14.2-18.0) L Hematocrit 29.2 % (42.0-52.0) L Mean Corpuscular Volume 80 FL (80-99) Mean Corpuscular Hemoglobin 25.6 PG (27.0-31.0) L Mean Corpuscular Hemoglobin Concent 32.1 G/DL (32.0-36.0) Red Cell Distribution Width 17.7 % (11.6-14.8) H Platelet Count 290 K/UL (150-450) Mean Platelet Volume 8.1 FL (6.5-10.1) Neutrophils (%) (Auto) 72.1 % (45.0-75.0) Lymphocytes (%) (Auto) 16.5 % (20.0-45.0) L Monocytes (%) (Auto) 7.7 % (1.0-10.0) Eosinophils (%) (Auto) 2.7 % (0.0-3.0) Basophils (%) (Auto) 1.1 % (0.0-2.0) Sodium Level 134 MMOL/L (136-145) L Potassium Level 5.1 MMOL/L (3.5-5.1) Chloride Level 103 MMOL/L (98-107) Carbon Dioxide Level 22 MMOL/L (21-32) Anion Gap 9 mmol/L (5-15) Blood Urea Nitrogen 33 mg/dL (7-18) H Creatinine 1.1 MG/DL (0.55-1.30) Estimat Glomerular Filtration Rate mL/min (>60) Glucose Level 81 MG/DL (74-106) Calcium Level 8.0 MG/DL (8.5-10.1) L Phosphorus Level 5.0 MG/DL (2.5-4.9) H Magnesium Level 2.0 MG/DL (1.8-2.4) Total Bilirubin 0.8 MG/DL (0.2-1.0) Aspartate Amino Transf (AST/SGOT) 20 U/L (15-37) Alanine Aminotransferase (ALT/SGPT) 19 U/L (12-78) Alkaline Phosphatase 144 U/L (46-116) H Total Protein 8.2 G/DL (6.4-8.2) Albumin 1.6 G/DL (3.4-5.0) L Globulin 6.6 g/dL Albumin/Globulin Ratio 0.2 (1.0-2.7) L Isaiah Fritz MD Dec 20, 2018 09:56
--- NOTE | 2018-12-20 10:10 | NUR ---
NURSE NOTES: Laboratory made aware of patients blood culture order placed by Dr. Bhatti to be drawn peripherally.
--- NOTE | 2018-12-20 10:13 | Cardiac Electrophysiology PN ---
Assessment/Plan Assessment/Plan 1. CHF with elevated BNP. Echo EF 55% to 60% with diastolic dysfunction. 2. Respiratory failure on the ventilator and IV antibiotic per ID and Dr. Fritz. Tracheostomy today is pending 3. Hypertension. Off meds. 4. Severe sepsis, likely due to pneumonia 5. Diabetes 6. Dysphagia, status post PEG placement. 7. Azotemia, DW RN Subjective Subjective In ICU on the vent in NAD. Scheduled for Tracheostomy today as failed weaning again. Objective Last 24 Hour Vital Signs Date Time Temp Pulse Resp B/P (MAP) Pulse Ox O2 Delivery O2 Flow Rate FiO2 12/20/18 10:10 94 16 100 Mechanical Ventilator 25 12/20/18 09:52 94 16 100 Mechanical Ventilator 25 12/20/18 08:38 98 20 25 12/20/18 08:00 25 12/20/18 08:00 104 12/20/18 08:00 Mechanical Ventilator Mechanical Ventilator 12/20/18 08:00 99.6 102 21 119/69 (86) 99 12/20/18 07:17 104 21 25 12/20/18 07:00 103 20 109/69 (82) 100 12/20/18 06:00 104 21 101/60 (74) 98 12/20/18 05:00 103 21 103/71 (82) 99 12/20/18 04:39 96 23 25 12/20/18 04:00 Mechanical Ventilator 12/20/18 04:00 103 12/20/18 04:00 25 12/20/18 04:00 99.2 99 25 109/56 (73) 100 12/20/18 03:00 102 21 130/61 (84) 100 12/20/18 02:44 96 20 25 12/20/18 02:00 100 18 121/67 (85) 99 12/20/18 01:07 103 24 25 12/20/18 01:00 105 21 116/65 (82) 100 12/20/18 00:00 Mechanical Ventilator 12/20/18 00:00 25 12/20/18 00:00 99.5 100 23 127/64 (85) 100 12/20/18 00:00 100 12/19/18 23:00 101 21 124/69 (87) 100 12/19/18 22:56 100 24 25 12/19/18 22:00 103 24 133/67 (89) 100 12/19/18 21:24 101 22 100 Mechanical Ventilator 25 12/19/18 21:16 103 26 98 Mechanical Ventilator 25 12/19/18 21:15 103 26 25 12/19/18 21:00 105 24 128/66 (86) 100 12/19/18 20:00 99.6 96 25 138/67 (90) 100 12/19/18 20:00 Mechanical Ventilator Mechanical Ventilator 12/19/18 20:00 99 12/19/18 20:00 25 12/19/18 19:29 98 23 25 12/19/18 19:00 93 21 128/66 (86) 100 12/19/18 18:00 88 21 136/59 (84) 100 12/19/18 17:00 90 23 126/68 (87) 100 12/19/18 16:57 93 24 25 12/19/18 16:50 89 12/19/18 16:00 99.2 93 21 131/74 (93) 100 12/19/18 16:00 25 12/19/18 16:00 Mechanical Ventilator Mechanical Ventilator 12/19/18 15:01 85 22 25 12/19/18 15:00 88 21 145/63 (90) 100 12/19/18 14:00 87 23 144/69 (94) 100 12/19/18 14:00 144/69 12/19/18 13:05 88 22 25 12/19/18 13:00 85 20 135/81 (99) 100 12/19/18 12:00 Mechanical Ventilator Mechanical Ventilator 12/19/18 12:00 97.8 84 21 140/77 (98) 100 12/19/18 12:00 89 12/19/18 12:00 25 12/19/18 11:00 98 24 145/79 (101) 100 12/19/18 10:59 103 27 25 12/19/18 10:15 104 25 100 Mechanical Ventilator 25 Intake and Output 12/19/18 12/20/18 19:00 07:00 Intake Total 1260 ml 350 ml Output Total 1622 ml 1135 ml Balance -362 ml -785 ml Free Water 80 ml IV Total 460 ml 110 ml Tube Feeding 720 ml 240 ml Output Urine Total 1572 ml 985 ml Stool Total 50 ml 150 ml Laboratory Tests Test 12/20/18 04:00 White Blood Count 15.5 K/UL (4.8-10.8) H Red Blood Count 3.66 M/UL (4.70-6.10) L Hemoglobin 9.4 G/DL (14.2-18.0) L Hematocrit 29.2 % (42.0-52.0) L Mean Corpuscular Volume 80 FL (80-99) Mean Corpuscular Hemoglobin 25.6 PG (27.0-31.0) L Mean Corpuscular Hemoglobin Concent 32.1 G/DL (32.0-36.0) Red Cell Distribution Width 17.7 % (11.6-14.8) H Platelet Count 290 K/UL (150-450) Mean Platelet Volume 8.1 FL (6.5-10.1) Neutrophils (%) (Auto) 72.1 % (45.0-75.0) Lymphocytes (%) (Auto) 16.5 % (20.0-45.0) L Monocytes (%) (Auto) 7.7 % (1.0-10.0) Eosinophils (%) (Auto) 2.7 % (0.0-3.0) Basophils (%) (Auto) 1.1 % (0.0-2.0) Sodium Level 134 MMOL/L (136-145) L Potassium Level 5.1 MMOL/L (3.5-5.1) Chloride Level 103 MMOL/L (98-107) Carbon Dioxide Level 22 MMOL/L (21-32) Anion Gap 9 mmol/L (5-15) Blood Urea Nitrogen 33 mg/dL (7-18) H Creatinine 1.1 MG/DL (0.55-1.30) Estimat Glomerular Filtration Rate mL/min (>60) Glucose Level 81 MG/DL (74-106) Calcium Level 8.0 MG/DL (8.5-10.1) L Phosphorus Level 5.0 MG/DL (2.5-4.9) H Magnesium Level 2.0 MG/DL (1.8-2.4) Total Bilirubin 0.8 MG/DL (0.2-1.0) Aspartate Amino Transf (AST/SGOT) 20 U/L (15-37) Alanine Aminotransferase (ALT/SGPT) 19 U/L (12-78) Alkaline Phosphatase 144 U/L (46-116) H Total Protein 8.2 G/DL (6.4-8.2) Albumin 1.6 G/DL (3.4-5.0) L Globulin 6.6 g/dL Albumin/Globulin Ratio 0.2 (1.0-2.7) L Objective HEAD AND NECK: Orally intubated. LUNGS: Coarse rhonchi. CARDIOVASCULAR: Regular S1 and S2 and mildly tachycardic. ABDOMEN: Status post G-tube. EXTREMITIES: No pitting edema. Darrell Cevallos MD Dec 20, 2018 10:13
--- NOTE | 2018-12-20 11:50 | NUR ---
NURSE NOTES: Bp is 117/66 with HR at 92, remains on ventilator with saturations at at 100% and RR of 20 with setting of AC 16, TV: 600, and FIO2 of 25%. patient is resting with eyes closed but awake when shaken or name is called, no pain noted using the FLACC scale, currently awaiting for trach placement, will continue to monitor.
[2018-12-20] MEDS ORDERED: Lidocaine 1% 10mg/ml/Epi 0.005mg/ml 30ml vial INJ ONE (12:17)
[2018-12-20] MEDS ORDERED: fentaNYL 100 mcg/2 mL IV ONE (12:47)
[2018-12-20] MEDS ORDERED: Zemuron 50mg/5ml Inj IV ONE (12:53)
[2018-12-20] MEDS ORDERED: NS Irrig 1000ml ONE (13:00)
[2018-12-20] MEDS ORDERED: Sterile Water Irrig 1000ml IRRIG ONE (13:00)
--- NOTE | 2018-12-20 13:52 | Brief Operative Note ---
Immediate Post Operative Note Operative Note Pre-op Diagnosis: respiratory insufficiency requiring prolonged ventilatory support Procedure: tracheostomy Post-op Diagnosis: same as pre-op Surgeon: chauncey Anesthesiologist: haroldo Anesthesia: general, local Specimen: none Complications: none Condition: stable Fluids: see records Estimated Blood Loss: minimal Drains: none Implant(s) used?: Juan Gillespie Dec 20, 2018 13:52
--- NOTE | 2018-12-20 14:00 | Immediate Post-Op Evaluation ---
Immediate Post-Op Evalulation Immediate Post-Op Evalulation Procedure: Tracheostomy Date of Evaluation: Dec 20, 2018 Time of Evaluation: 13:59 IV Fluids: 200 Blood Products: none Estimated Blood Loss: min Urinary Output: none Blood Pressure Systolic: 104 Blood Pressure Diastolic: 56 Pulse Rate: 92 Respiratory Rate: 20 O2 Sat by Pulse Oximetry: 98 Temperature (Fahrenheit): 97.6 Pain Score (1-10): 1 Nausea: No Vomiting: No Complications none Patient Status: no response, ventilated, none Hydration Status: adequate Jean Claude Murillo MD Dec 20, 2018 14:00
--- NOTE | 2018-12-20 14:06 | NUR ---
RD ASSESSMENT & RECOMMENDATIONS SEE CARE ACTIVITY FOR COMPLETE ASSESSMENT DAILY ESTIMATED NEEDS: Needs based on Critical care, sepsis/ 67kg 22-28 kcals/kg 0450-4709 total kcals 1.2-2 g protein/kg 80-134 g total protein 25-30 mL/kg 7175-3753 total fluid mLs NUTRITION DIAGNOSIS: 1) Swallowing difficulty R/T dysphagia as evidenced by pt is PEG dep, on GT feeding, orally intubated at this time. 2) Altered nutrition related lab values r/t hyperglycemia as evidenced by BG 151, 159, on continuous tube feeds + D5 IVF. CURRENT TF:Jevity 1.2 @ 60ml/hr x 22 hrs + Prosource 1pkt QD- HELD ENTERAL NUTRITION RECOMMENDATIONS: Jevity 1.2 @ 60ml/hr x 22 hrs + Prosource 1pkt QD to provide 1320ml, 1584kcal, 73g + 11g prot, 1082ml free water * RESUME TF MEDICALLY APPROPRIATE * Add Prosource 1pkt QD to meet protein needs * Hold 1 hour before and after Synthroid med * HOB over 30 degrees/ water flush per MD WITH CONSISTENTLY ELEV BGS, REC TF CHANGE TO GLUCERNA 1.2 : Glucerna 1.2 @ 60ml/hr x 22 hrs + Prosource 1pkt QD -> 1320ml, 1584kcal, 79 +11g prot, 1062ml free water ADDITIONAL RECOMMENDATIONS: * Per SNF, HT=67", BI=064# (from 11/23/18) * Calibrated bedscale wt for accurate CBW * Monitor BGs closely, need for carb controlled TF formula, hypoglycemic agents -> h/o DM * Monitor lytes, need for TF change (phos elev, K wnl but trend up) .
--- NOTE | 2018-12-20 14:15 | NUR ---
NURSE NOTES: Patient return from tracheostomy placement. a Shiley 8 is used in in place with perforated gauze under anchor, patient remains sedated from administration of rocuronium, patient BP remains stable with 116/73 with HR at 101 in sinus tachycardia, q 15 minute vital signs started to monitor for internal hemorrhage, will continue to monitor.
--- NOTE | 2018-12-20 14:48 | Internal Med Progress Note ---
Subjective Physician Name ByronTye Attending Physician Isaiah Fritz MD Current Medications Medications (Trade) Dose Ordered Sig/Courtney Route PRN Reason Start Time Stop Time Status Last Admin Dose Admin Acetaminophen (Tylenol) 650 mg Q4H PRN ORAL fever 12/04/18 14:00 01/03/19 13:59 12/18/18 20:27 Chlorhexidine Gluconate (Amna-Hex 2%) 1 applic DAILY@1999 TOPIC 12/13/18 20:00 01/12/19 19:59 12/19/18 20:18 Colistimethate Sodium (Colistin *inhalation use only*) 150 mg Q12HR@10, INH 12/18/18 10:00 12/25/18 09:59 12/20/18 09:51 Heparin Sodium (Porcine) (Heparin 5000 units/ml) 5,000 units EVERY 12 HOURS SUBQ 12/04/18 21:00 01/03/19 20:59 12/19/18 09:29 Levothyroxine Sodium (Synthroid) 25 mcg DAILY@0630 ORAL 12/09/18 06:30 01/08/19 06:29 12/19/18 06:12 Lorazepam (Ativan 2mg/ml 1ml) 0.5 mg Q6H PRN IV For Anxiety 12/14/18 15:15 12/21/18 15:14 12/20/18 02:41 Norepinephrine Bitartrate 4 mg/ Dextrose 254 ml @ 0 mls/hr Q24H IV 12/04/18 14:00 01/03/19 13:59 Pantoprazole (Protonix) 40 mg DAILY IVP 12/05/18 09:00 01/04/19 08:59 12/20/18 08:35 Tigecycline 50 mg/ Sodium Chloride 110 ml @ 220 mls/hr EVERY 12 HOURS IVPB 12/10/18 21:00 12/21/18 20:59 12/20/18 08:36 Allergies: Coded Allergies: No Known Allergies (Unverified , 12/04/18) Subjective Responsive with open eyes, s/p trach today,in ICU. Objective Last Vital Signs Date Time Temp Pulse Resp B/P (MAP) Pulse Ox O2 Delivery O2 Flow Rate FiO2 12/20/18 14:15 98.0 100 16 137/68 (91) 100 12/20/18 12:42 25 12/20/18 12:00 Mechanical Ventilator Mechanical Ventilator Laboratory Tests Test 12/20/18 04:00 White Blood Count 15.5 K/UL (4.8-10.8) H Red Blood Count 3.66 M/UL (4.70-6.10) L Hemoglobin 9.4 G/DL (14.2-18.0) L Hematocrit 29.2 % (42.0-52.0) L Mean Corpuscular Volume 80 FL (80-99) Mean Corpuscular Hemoglobin 25.6 PG (27.0-31.0) L Mean Corpuscular Hemoglobin Concent 32.1 G/DL (32.0-36.0) Red Cell Distribution Width 17.7 % (11.6-14.8) H Platelet Count 290 K/UL (150-450) Mean Platelet Volume 8.1 FL (6.5-10.1) Neutrophils (%) (Auto) 72.1 % (45.0-75.0) Lymphocytes (%) (Auto) 16.5 % (20.0-45.0) L Monocytes (%) (Auto) 7.7 % (1.0-10.0) Eosinophils (%) (Auto) 2.7 % (0.0-3.0) Basophils (%) (Auto) 1.1 % (0.0-2.0) Sodium Level 134 MMOL/L (136-145) L Potassium Level 5.1 MMOL/L (3.5-5.1) Chloride Level 103 MMOL/L (98-107) Carbon Dioxide Level 22 MMOL/L (21-32) Anion Gap 9 mmol/L (5-15) Blood Urea Nitrogen 33 mg/dL (7-18) H Creatinine 1.1 MG/DL (0.55-1.30) Estimat Glomerular Filtration Rate mL/min (>60) Glucose Level 81 MG/DL (74-106) Calcium Level 8.0 MG/DL (8.5-10.1) L Phosphorus Level 5.0 MG/DL (2.5-4.9) H Magnesium Level 2.0 MG/DL (1.8-2.4) Total Bilirubin 0.8 MG/DL (0.2-1.0) Aspartate Amino Transf (AST/SGOT) 20 U/L (15-37) Alanine Aminotransferase (ALT/SGPT) 19 U/L (12-78) Alkaline Phosphatase 144 U/L (46-116) H Total Protein 8.2 G/DL (6.4-8.2) Albumin 1.6 G/DL (3.4-5.0) L Globulin 6.6 g/dL Albumin/Globulin Ratio 0.2 (1.0-2.7) L Microbiology Date/Time Source Procedure Growth Status 12/19/18 15:00 Sputum Gram Stain - Final Resulted 12/19/18 15:00 Sputum Sputum Culture Pending Resulted Intake and Output 12/19/18 12/20/18 19:00 07:00 Intake Total 1260 ml 350 ml Output Total 1622 ml 1135 ml Balance -362 ml -785 ml Free Water 80 ml IV Total 460 ml 110 ml Tube Feeding 720 ml 240 ml Output Urine Total 1572 ml 985 ml Stool Total 50 ml 150 ml Objective General: awake, responsive with open eyes. HEENT: NCAT, sclera anicteric, PERRL, trach side intact. Neck: Supple, no significant jugular venous distention, Lungs: Mechanical breath sound, decrease air at bases. no Wheeze or Rales, + Coarse breath sound. Heart: Regular rate and rhythm, normal S1/S2, no murmur. Abdomen: soft, nontender, nondistended. Normoactive bowel sounds, PEG site intact, + umbilical hernia. / Rectal: Andrade cath / rectal tube. Extremities: No Cyanosis , clubbing, right upper extremity edema. Left upper extremity PICC line. Neuro: Awake, Able to move lower extremities extremities slowly. Skin: warm, no rashes Assessment/Plan Assessment/Plan Assessment: Severe Sepsis- likely 2ry to PNA, r/o bacteremia, UTI. Possible Flu despite neg screen test Acute respiratory failure s/p intubation 12/04 --> S/P tracheostomy (12/20/2018). ELICIA COPD DM2 HTN Dysphagia s/p G-tube Dementia Plan: -Antibiotics: Tigecycline and INH Colistin -monitor labs and cultures, Resume Tube feeding Heparin SQ Full code. Tye Matthews MD Dec 20, 2018 14:48
--- NOTE | 2018-12-20 15:00 | NUR ---
NURSE NOTES: Dr. Matthews updated on patient condition at the bedside, notified patient just retuned form trach placement, ordered to have patient tube feeding resumed, will follow orders.
--- NOTE | 2018-12-20 15:07 | NUR ---
RESPIRATORY NOTE: pt now trached with shiley 8. assessments have been adjusted, inline sx changed. vent settings remain the same. will cont to monitor.
[2018-12-20] MEDS ORDERED: NS 275ml ONE (15:44)
[2018-12-20] MEDS ORDERED: Tubing IV Secondary IV ONE (15:44)
--- NOTE | 2018-12-20 16:44 | Diagnostic Imaging Report ---
Indication: Dyspnea Comparison: 12/19/2018 A single view chest radiograph was obtained. Findings: Tracheostomy noted. PICC line is stable. Heart size is stable. Patchy infiltrates again noted without significant change. IMPRESSION: Tracheostomy now noted. No pneumothorax identified. No change otherwise
--- NOTE | 2018-12-20 17:00 | NUR ---
NURSE NOTES: No symptoms of bleeding noted from trach site, patient remains stable with bp above 100sbp. patient remains coughing thick white frothy sputum with pinkish color of 0.5/5, he remains tolerating AC 16, TV: 600 and FIO2 of 25%. tube feeding remains at 60ml/hr through G-tube, will continue to monitor
--- NOTE | 2018-12-20 17:15 | Operative Note - Dictated ---
DATE OF OPERATION: 12/20/2018 PREOPERATIVE DIAGNOSIS: Respiratory insufficiency requiring prolonged ventilatory support. POSTOPERATIVE DIAGNOSIS: Respiratory insufficiency requiring prolonged ventilatory support. OPERATION PERFORMED: Tracheostomy. ATTENDING SURGEON: Juan Peters M.D. CABLE ARMORER OPERATOR: None. ANESTHESIOLOGIST: Jean Claude Murillo M.D. ANESTHESIA: General OUTDOOR STUDIES DIRECTOR. ESTIMATED BLOOD LOSS: Minimal. IV FLUIDS: Please see anesthesia records. COMPLICATIONS: None. DRAINS: None. SPECIMENS: None. WOUND CLASSIFICATION: Class I. ANTIBIOTICS: The patient on scheduled IV antibiotics. INDICATIONS FOR PROCEDURE: This is an 73-year-old male currently in the intensive care unit of [facility] in critical condition, intubated with ET tube on ventilator support, unable to wean and likely requiring prolonged ventilatory support. Given these findings, tracheostomy was indicated and recommended. Risks, benefits, alternatives were discussed to the patient's family who consented to surgery. OPERATIVE NOTE: The patient was taken to the operating room and placed on the operating table in supine position. All bony prominences well padded. SCDs were placed. Preoperative time-out was taken identifying the patient, procedure, operative staff, and surgical staff. A shoulder roll was placed. The neck neck was hyperextended. The neck was prepped and draped in standard surgical fashion. Anatomical landmarks were identified and skin incision was made two fingerbreadths above the sternal notch. Incision was carried down through the subcutaneous tissue and platysma to the median raphae. Strap muscles were divided and the trachea was identified and cleared off. A tracheal hook was placed and first and second tracheal rings were exposed. Following this, a Velvet flap was made in the first and second tracheal rings and the ET tube was identified. With assistance of the anesthesiologist, the ET tube was deflated and slowly withdrawn and once above the proximal level of the window, the 8-Swedish Shiley tracheostomy was inserted under direct visualization without complication. The balloon was insufflated through tracheostomy and cannula inserted followed by ventilation through the tracheostomy. Good end-tidal CO2 and volumes were identified. The wound was evaluated and hemostasis noted. The skin incisions were reapproximated using 2-0 Monocryl suture followed by 2-0 Monocryl suture to the trachea to the skin. Local anesthetic was infiltrated throughout the procedure for the patient's comfort. Trach straps were placed followed by dressings. The patient tolerated the procedure well. He was taken directly to the intensive care unit in a stable condition. Juan Peters M.D. DR: Ragnel JOB#: [id number] CC: ADONAY
--- NOTE | 2018-12-20 19:18 | NUR ---
HAND-OFF: Report given to DARIANA Mckeon.
--- NOTE | 2018-12-20 19:30 | NUR ---
NURSE NOTES: Received report from DARIANA Cade. Patient in bed awake,no moaning no facial grimaces. S/P Trach, tract to vent no s/s of acute distress noted. HOB elevated. GT intact running Jevity 1.2 at 60cc/hr. Rectal tube draining. Andrade draining. Left upper arm PICC intact. On P200 for wound management. Repositioned. SR on the monitor HR 95. Bed alarm on. Bed locked and in low position. Will continue plan of care.
[2018-12-20] MEDS: Dyna-Hex 2% Top Sol 2oz TOPIC SCH (19:50)
--- NOTE | 2018-12-20 21:04 | NUR ---
NURSE NOTES: CHG bath given tolerated well.
--- NOTE | 2018-12-20 22:00 | NUR ---
NURSE NOTES: Patient in bed resting, no s/s of acute distress noted. HOB elevated. Oral care done. No moaning no facial grimaces. Will continue plan of care.
[2018-12-21] VITALS (18 sets, daily range): BP systolic 101–164; BP diastolic 39–84
--- NOTE | 2018-12-21 | NUR ---
NURSE NOTES: Temp 99.8 axillary cooling measure provided. Repositioned. No s/s of acute distress noted. S/P trach no bleeding on trach site. Will continue plan of care.
--- NOTE | 2018-12-21 02:00 | NUR ---
NURSE NOTES: Repositioned. oral care done. Rectal and Andrade draining. No s/s of acute distress. Will continue plan of care.
--- NOTE | 2018-12-21 04:00 | NUR ---
NURSE NOTES: Bed bath given tolerated well. Repositioned. oral care done. Rectal and Andrade draining. No s/s of acute distress. Will continue plan of care.
[2018-12-21] MEDS: Levothyroxine 25mcg tab ORAL SCH (05:52)
[2018-12-21 05:59] LABS: BASOPHILS % (AUTO) 1.2 % (0.0-2.0); EOSINOPHILS % (AUTO) 1.3 % (0.0-3.0); HEMATOCRIT 29.5 % (42.0-52.0); HEMOGLOBIN 9.3 G/DL (14.2-18.0); LYMPHOCYTES % (AUTO) 11.3 % (20.0-45.0); MEAN CORPUSCULAR VOLUME 81 FL (80-99); MONOCYTES % (AUTO) 7.1 % (1.0-10.0); PLATELET COUNT 302 K/UL (150-450); RED BLOOD COUNT 3.64 M/UL (4.70-6.10); RED CELL DISTRIBUTION WIDTH 18.1 % (11.6-14.8); WHITE BLOOD COUNT 17.4 K/UL (4.8-10.8)
[2018-12-21 06:22] LABS: ALANINE AMINOTRANSFERASE 20 U/L (12-78); ALBUMIN 1.7 G/DL (3.4-5.0); ALBUMIN/GLOBULIN RATIO 0.2 (1.0-2.7); ALKALINE PHOSPHATASE 156 U/L (46-116); ANION GAP 8 mmol/L (5-15); ASPARTATE AMINO TRANSFERASE 22 U/L (15-37); BILIRUBIN,TOTAL 0.5 MG/DL (0.2-1.0); BLOOD UREA NITROGEN 39 mg/dL (7-18); CALCIUM 8.1 MG/DL (8.5-10.1); CARBON DIOXIDE 24 MMOL/L (21-32); CHLORIDE 105 MMOL/L (98-107); CREATININE 1.2 MG/DL (0.55-1.30); PHOSPHORUS 4.9 MG/DL (2.5-4.9); POTASSIUM 4.8 MMOL/L (3.5-5.1); SODIUM 137 MMOL/L (136-145)
--- NOTE | 2018-12-21 06:40 | NUR ---
RESPIRATORY NOTE: Received pt on AC 16, 600VT, 25%, PEEP +5. Pt newly trached with cuffed Shiley 8. Pt is resting comfortably, tolerating well. B/S rachel rhonchi, sxn small amounts of thin thick brown yellow red specks secretions without incidents. Vent plugged into red outlet, ambubag and spare trach at bedside, alarms are set and audible. Vent circuit and Sx tubbing secure and out of the way. Pt is in no apparent distress at this time. Will continue to monitor pt.
--- NOTE | 2018-12-21 07:39 | NUR ---
NURSE NOTES: Received report from Amy Vazquez RN. Patient asleep in bed, opens eyes to voice, nonverbal. Trach to vent with settings of AC 16, TV 600, FiO2 25%, no PEEP. No s/s of respiratory distress noted. GT feeding of Jevity 1.2 on hold for synthroid administration, restarted at 60 cc/hr. HoB elevated. Andrade catheter and rectal tube in place and draining well. Left upper arm PICC patent and asymptomatic. Bed locked in lowest position with side rails up x 3. All needs attended to. Call light within reach. Will continue to monitor.
[2018-12-21] MEDS: Pantoprazole Inj IVP SCH (08:43)
[2018-12-21] MEDS: Tigecycline 50 MG in NS 110 ML IVPB SCH ×2 (08:44→21:13)
[2018-12-21] MEDS: Heparin 5000 units/ml inj SUBQ SCH ×2 (08:45→21:15)
--- NOTE | 2018-12-21 08:50 | NUR ---
RADIOLOGY DEPT CHEST X-RAY DONE.-P.DYE
--- NOTE | 2018-12-21 08:58 | Pulmonolgy Critical Care Note ---
Critical Care - Asmt/Plan Problems: (1) Acute respiratory failure (2) Septic shock (3) Feeding by G-tube (4) ATN (acute tubular necrosis) (5) Diabetes mellitus, type II (6) COPD (chronic obstructive pulmonary disease) (7) History of hypertension (8) Hypothyroidism Respiratory: monitor respiratory rate, adjust FIO2, CXR Cardiac: continue to monitor HR/BP Renal: F/U I&O, keep IV fluid Infectious Disease: check cultures, continue antibiotics, other - wbc risign Gastrointestinal: continue feedings/current rate, hold feedings Endocrine: check HgA1C, continue sliding scale insulin Hematologic: monitor H/H, transfuse if hgb<8.5 Neurologic: PRN Ativan, keep patient comfortable Prophylaxis: Protonix Disposition: keep in ICU Time Spent (Minutes): 40 Notes Reviewed: cardio, renal Discussed with: nurses, consultants, case work aide, family member Critical Care - Objective Last 24 Hour Vital Signs Date Time Temp Pulse Resp B/P (MAP) Pulse Ox O2 Delivery O2 Flow Rate FiO2 12/21/18 08:00 25 12/21/18 07:30 25 12/21/18 07:30 25 12/21/18 07:00 90 18 138/81 (100) 100 12/21/18 06:40 89 20 25 12/21/18 06:00 92 22 141/39 (73) 100 12/21/18 05:00 92 22 138/84 (102) 100 12/21/18 04:59 92 21 25 12/21/18 04:00 Mechanical Ventilator Mechanical Ventilator 12/21/18 04:00 94 12/21/18 04:00 25 12/21/18 04:00 98.9 90 19 146/65 (92) 100 12/21/18 03:25 92 23 25 12/21/18 03:00 94 22 101/55 (70) 100 12/21/18 02:00 94 22 149/77 (101) 100 12/21/18 01:59 95 23 25 12/21/18 01:00 95 22 143/68 (93) 99 12/21/18 00:00 25 12/21/18 00:00 Mechanical Ventilator Mechanical Ventilator 12/21/18 00:00 99.8 90 19 140/70 (93) 100 12/21/18 00:00 91 2/7/19 23:14 90 22 100 Mechanical Ventilator 25 12/20/18 23:00 94 22 134/72 (92) 100 12/20/18 22:58 93 22 25 12/20/18 22:57 93 21 100 Mechanical Ventilator 25 12/20/18 22:00 94 22 138/76 (96) 100 12/20/18 21:58 97 26 25 12/20/18 21:00 91 19 124/65 (84) 100 12/20/18 20:00 Mechanical Ventilator Mechanical Ventilator 12/20/18 20:00 94 12/20/18 20:00 98.0 93 19 128/68 (88) 100 12/20/18 20:00 25 12/20/18 19:33 34 24 25 12/20/18 19:00 88 19 107/60 (76) 100 12/20/18 18:00 91 20 106/59 (75) 100 12/20/18 17:12 95 18 25 12/20/18 17:00 92 19 107/82 (90) 100 12/20/18 16:30 94 17 118/62 (80) 100 12/20/18 16:00 Mechanical Ventilator Mechanical Ventilator 12/20/18 16:00 25 12/20/18 16:00 92 12/20/18 16:00 99.0 95 16 111/60 (77) 100 12/20/18 15:30 97 16 111/57 (75) 100 12/20/18 15:03 97 16 25 12/20/18 15:00 96 16 102/62 (75) 100 12/20/18 14:45 95 16 119/77 (91) 100 12/20/18 14:30 101 21 116/73 (87) 100 12/20/18 14:15 98.0 100 16 137/68 (91) 100 12/20/18 14:00 147/71 12/20/18 14:00 25 12/20/18 14:00 101 16 147/71 (96) 100 12/20/18 14:00 92 20 98 12/20/18 12:42 95 19 25 12/20/18 12:00 95 12/20/18 12:00 98.3 93 21 125/68 (87) 100 12/20/18 12:00 25 12/20/18 12:00 Mechanical Ventilator Mechanical Ventilator 12/20/18 11:00 92 20 117/66 (83) 100 12/20/18 10:54 90 16 25 12/20/18 10:10 94 16 100 Mechanical Ventilator 25 12/20/18 10:00 93 18 116/70 (85) 100 12/20/18 09:52 94 16 100 Mechanical Ventilator 25 12/20/18 09:00 95 18 113/63 (80) 100 Status: awake Condition: critical HEENT: atraumatic Lungs: clear Heart: HR/BP stable, HR/BP unstable Abdomen: soft, active bowel sounds Extremities: no C/C/E Decubiti: stage Micro: Microbiology Date/Time Source Procedure Growth Status 12/19/18 15:00 Sputum Gram Stain - Final Resulted 12/19/18 15:00 Sputum Sputum Culture Pending Resulted Accucheck: 101 Critical Care - Subjective ROS Limited/Unobtainable: Yes Interval Events: tolerated trach very well. Condition: critical EKG Rhythm: Sinus Rhythm FI02: 25 Vent Support Breath Rate: 16 Vent Support Mode: AC Vent Tidal Volume: 600 Sputum Amount: Small PEEP: 0.0 PIP: 18 Tube Feeding Amount: 60 I&O: Intake and Output 12/20/18 12/21/18 19:00 07:00 Intake Total 380 ml 920 ml Output Total 870 ml 800 ml Balance -490 ml 120 ml Free Water 30 ml 150 ml IV Total 110 ml 110 ml Tube Feeding 240 ml 660 ml Output Urine Total 795 ml 700 ml Stool Total 75 ml 100 ml CXR: no change, trach in place ET-Tube: 8.0 ET Position: 24 Labs: Laboratory Tests Test 12/21/18 04:30 12/21/18 08:20 White Blood Count 17.4 K/UL (4.8-10.8) H Red Blood Count 3.64 M/UL (4.70-6.10) L Hemoglobin 9.3 G/DL (14.2-18.0) L Hematocrit 29.5 % (42.0-52.0) L Mean Corpuscular Volume 81 FL (80-99) Mean Corpuscular Hemoglobin 25.6 PG (27.0-31.0) L Mean Corpuscular Hemoglobin Concent 31.7 G/DL (32.0-36.0) L Red Cell Distribution Width 18.1 % (11.6-14.8) H Platelet Count 302 K/UL (150-450) Mean Platelet Volume 8.4 FL (6.5-10.1) Neutrophils (%) (Auto) 79.0 % (45.0-75.0) H Lymphocytes (%) (Auto) 11.3 % (20.0-45.0) L Monocytes (%) (Auto) 7.1 % (1.0-10.0) Eosinophils (%) (Auto) 1.3 % (0.0-3.0) Basophils (%) (Auto) 1.2 % (0.0-2.0) Sodium Level 137 MMOL/L (136-145) Potassium Level 4.8 MMOL/L (3.5-5.1) Chloride Level 105 MMOL/L (98-107) Carbon Dioxide Level 24 MMOL/L (21-32) Anion Gap 8 mmol/L (5-15) Blood Urea Nitrogen 39 mg/dL (7-18) H Creatinine 1.2 MG/DL (0.55-1.30) Estimat Glomerular Filtration Rate mL/min (>60) Glucose Level 120 MG/DL (74-106) H Calcium Level 8.1 MG/DL (8.5-10.1) L Phosphorus Level 4.9 MG/DL (2.5-4.9) Magnesium Level 2.0 MG/DL (1.8-2.4) Total Bilirubin 0.5 MG/DL (0.2-1.0) Aspartate Amino Transf (AST/SGOT) 22 U/L (15-37) Alanine Aminotransferase (ALT/SGPT) 20 U/L (12-78) Alkaline Phosphatase 156 U/L (46-116) H Total Protein 8.8 G/DL (6.4-8.2) H Albumin 1.7 G/DL (3.4-5.0) L Globulin 7.1 g/dL Albumin/Globulin Ratio 0.2 (1.0-2.7) L Arterial Blood pH 7.417 (7.350-7.450) Arterial Blood Partial Pressure CO2 31.2 mmHg (35.0-45.0) L Arterial Blood Partial Pressure O2 94.3 mmHg (75.0-100.0) Arterial Blood HCO3 19.6 mmol/L (22.0-26.0) L Arterial Blood Oxygen Saturation 96.2 % (95-100) Arterial Blood Base Excess -4.1 (-2-2) L Aroldo Test Positive Isaiah Fritz MD Dec 21, 2018 08:58
--- NOTE | 2018-12-21 09:30 | NUR ---
NURSE NOTES: Patient's temp noted at 99.6F at 08:00. Cooling measures provided. Temp is now 99.2F. Will continue to monitor.
--- NOTE | 2018-12-21 10:30 | NUR ---
NURSE NOTES: Patient awake in bed, no s/s of acute distress noted. Oral care provided. Tracheal suction performed, noted with small amount of thick white secretion, no red specks bleeding noted.
--- NOTE | 2018-12-21 10:35 | Infectious Diseases Prog Note ---
Assessment/Plan Assessment/Plan Assessment: Severe Sepsis- likely 2ry to PNA, r/o bacteremia, UTI. Possible Flu despite neg screen test -CXR: Bilateral diffuse interstitial and airspace infiltrates versus edema, worsening on the right over one day -Bcx NTD -u/a wbc 40-60, nit neg, leuk large; ucx 10-20 k P. mirablis ESBL (S Meropenem, Zosyn) -sp cx p -influenza sc, legionela ag urine neg CT Chest 12/20/18 - Pulmonary infiltrates demonstrated bilaterally with most of airspace disease in the lower lobes right worse than left. Findings may be due to pneumonia. Please correlate clinically. Small bilateral pleural effusions slightly larger on the right. Small airways/reticular densities (tree-in-bud) also demonstrated. Differential diagnosis is large. Findings could certainly be related to bronchopneumonia, especially aspiration. Numerous other possibilities including bronchiolitis, TB , fungal, connective tissue disorders, among others. Fever, improving Leukocytosis stable Acute respiratory failure s/p intubation 12/04 ELICIA, improving COPD DM2 HTN dysphagia s/p G-tube dementia SNF resident Plan: - Continue Tigecycline #/ for Acinetobacter Restart INH Colistin #4 - INH colistin #1 D/C 12/13/18 - Repeat sputum Cx and blood Cx - Consider bronch given CT findings -12/10/18 IV Vancomycin #7 and Meropenem #6 for PNA and UTI -12/10 SP Tamiflu #6 -12/05 AMikacin and Ertapenem #2 -12/07/18 SP empiric Azithromycin #3 -f/u cx -Monitor CBC/CMP, temperatures -ICU, ETT care -aspiration precautions Will continue to follow along with you. Subjective Allergies: Coded Allergies: No Known Allergies (Unverified , 12/04/18) Subjective Still on Vent 25% O2, Failing weening trials Continued Leukocytosis Afebrile Objective Vital Signs Last 24 Hour Vital Signs Date Time Temp Pulse Resp B/P (MAP) Pulse Ox O2 Delivery O2 Flow Rate FiO2 12/21/18 10:00 99.2 101 22 115/61 (79) 100 12/21/18 09:00 101 21 105/40 (61) 100 12/21/18 08:53 106 23 25 12/21/18 08:00 Mechanical Ventilator Mechanical Ventilator 12/21/18 08:00 25 12/21/18 08:00 99.6 98 20 138/57 (84) 99 12/21/18 08:00 99 12/21/18 07:30 25 12/21/18 07:30 25 12/21/18 07:00 90 18 138/81 (100) 100 12/21/18 06:40 89 20 25 12/21/18 06:00 92 22 141/39 (73) 100 12/21/18 05:00 92 22 138/84 (102) 100 12/21/18 04:59 92 21 25 12/21/18 04:00 Mechanical Ventilator Mechanical Ventilator 12/21/18 04:00 94 12/21/18 04:00 25 12/21/18 04:00 98.9 90 19 146/65 (92) 100 12/21/18 03:25 92 23 25 12/21/18 03:00 94 22 101/55 (70) 100 12/21/18 02:00 94 22 149/77 (101) 100 12/21/18 01:59 95 23 25 12/21/18 01:00 95 22 143/68 (93) 99 12/21/18 00:00 25 12/21/18 00:00 Mechanical Ventilator Mechanical Ventilator 12/21/18 00:00 99.8 90 19 140/70 (93) 100 12/21/18 00:00 91 12/20/18 23:14 90 22 100 Mechanical Ventilator 25 12/20/18 23:00 94 22 134/72 (92) 100 12/20/18 22:58 93 22 25 12/20/18 22:57 93 21 100 Mechanical Ventilator 25 12/20/18 22:00 94 22 138/76 (96) 100 12/20/18 21:58 97 26 25 12/20/18 21:00 91 19 124/65 (84) 100 12/20/18 20:00 Mechanical Ventilator Mechanical Ventilator 12/20/18 20:00 94 12/20/18 20:00 98.0 93 19 128/68 (88) 100 12/20/18 20:00 25 12/20/18 19:33 34 24 25 12/20/18 19:00 88 19 107/60 (76) 100 12/20/18 18:00 91 20 106/59 (75) 100 12/20/18 17:12 95 18 25 12/20/18 17:00 92 19 107/82 (90) 100 12/20/18 16:30 94 17 118/62 (80) 100 12/20/18 16:00 Mechanical Ventilator Mechanical Ventilator 12/20/18 16:00 25 12/20/18 16:00 92 12/20/18 16:00 99.0 95 16 111/60 (77) 100 12/20/18 15:30 97 16 111/57 (75) 100 12/20/18 15:03 97 16 25 12/20/18 15:00 96 16 102/62 (75) 100 12/20/18 14:45 95 16 119/77 (91) 100 12/20/18 14:30 101 21 116/73 (87) 100 12/20/18 14:15 98.0 100 16 137/68 (91) 100 12/20/18 14:00 147/71 12/20/18 14:00 25 12/20/18 14:00 101 16 147/71 (96) 100 12/20/18 14:00 92 20 98 12/20/18 12:42 95 19 25 12/20/18 12:00 95 12/20/18 12:00 98.3 93 21 125/68 (87) 100 12/20/18 12:00 25 12/20/18 12:00 Mechanical Ventilator Mechanical Ventilator 12/20/18 11:00 92 20 117/66 (83) 100 12/20/18 10:54 90 16 25 Height (Feet): 5 Height (Inches): 6.00 Weight (Pounds): 163 Objective Gen: NAD awake and tracking HEENT: NCAT, MMM, Intubated Lungs: Course B/L Heart: RRR Abdomen: soft, active bowel sounds Extremities: no C/C/E Microbiology Date/Time Source Procedure Growth Status 12/19/18 15:00 Sputum Gram Stain - Final Resulted 12/19/18 15:00 Sputum Sputum Culture - Preliminary Resulted Laboratory Tests Test 12/21/18 04:30 12/21/18 08:20 White Blood Count 17.4 K/UL (4.8-10.8) H Red Blood Count 3.64 M/UL (4.70-6.10) L Hemoglobin 9.3 G/DL (14.2-18.0) L Hematocrit 29.5 % (42.0-52.0) L Mean Corpuscular Volume 81 FL (80-99) Mean Corpuscular Hemoglobin 25.6 PG (27.0-31.0) L Mean Corpuscular Hemoglobin Concent 31.7 G/DL (32.0-36.0) L Red Cell Distribution Width 18.1 % (11.6-14.8) H Platelet Count 302 K/UL (150-450) Mean Platelet Volume 8.4 FL (6.5-10.1) Neutrophils (%) (Auto) 79.0 % (45.0-75.0) H Lymphocytes (%) (Auto) 11.3 % (20.0-45.0) L Monocytes (%) (Auto) 7.1 % (1.0-10.0) Eosinophils (%) (Auto) 1.3 % (0.0-3.0) Basophils (%) (Auto) 1.2 % (0.0-2.0) Sodium Level 137 MMOL/L (136-145) Potassium Level 4.8 MMOL/L (3.5-5.1) Chloride Level 105 MMOL/L (98-107) Carbon Dioxide Level 24 MMOL/L (21-32) Anion Gap 8 mmol/L (5-15) Blood Urea Nitrogen 39 mg/dL (7-18) H Creatinine 1.2 MG/DL (0.55-1.30) Estimat Glomerular Filtration Rate mL/min (>60) Glucose Level 120 MG/DL (74-106) H Calcium Level 8.1 MG/DL (8.5-10.1) L Phosphorus Level 4.9 MG/DL (2.5-4.9) Magnesium Level 2.0 MG/DL (1.8-2.4) Total Bilirubin 0.5 MG/DL (0.2-1.0) Aspartate Amino Transf (AST/SGOT) 22 U/L (15-37) Alanine Aminotransferase (ALT/SGPT) 20 U/L (12-78) Alkaline Phosphatase 156 U/L (46-116) H Total Protein 8.8 G/DL (6.4-8.2) H Albumin 1.7 G/DL (3.4-5.0) L Globulin 7.1 g/dL Albumin/Globulin Ratio 0.2 (1.0-2.7) L Arterial Blood pH 7.417 (7.350-7.450) Arterial Blood Partial Pressure CO2 31.2 mmHg (35.0-45.0) L Arterial Blood Partial Pressure O2 94.3 mmHg (75.0-100.0) Arterial Blood HCO3 19.6 mmol/L (22.0-26.0) L Arterial Blood Oxygen Saturation 96.2 % (95-100) Arterial Blood Base Excess -4.1 (-2-2) L Aroldo Test Positive Current Medications Medications (Trade) Dose Ordered Sig/Courtney Route PRN Reason Start Time Stop Time Status Last Admin Dose Admin Acetaminophen (Tylenol) 650 mg Q4H PRN ORAL fever 12/04/18 14:00 01/03/19 13:59 12/18/18 20:27 Chlorhexidine Gluconate (Amna-Hex 2%) 1 applic DAILY@2000 TOPIC 12/13/18 20:00 01/12/19 19:59 12/20/18 19:50 Colistimethate Sodium (Colistin *inhalation use only*) 150 mg Q12HR@, INH 12/18/18 10:00 12/25/18 09:59 12/20/18 22:00 Heparin Sodium (Porcine) (Heparin 5000 units/ml) 5,000 units EVERY 12 HOURS SUBQ 12/04/18 21:00 01/03/19 20:59 12/21/18 08:45 Levothyroxine Sodium (Synthroid) 25 mcg DAILY@0630 ORAL 12/09/18 06:30 01/08/19 06:29 12/21/18 05:52 Lorazepam (Ativan 2mg/ml 1ml) 0.5 mg Q6H PRN IV For Anxiety 12/14/18 15:15 12/21/18 15:14 12/20/18 02:41 Norepinephrine Bitartrate 4 mg/ Dextrose 254 ml @ 0 mls/hr Q24H IV 12/04/18 14:00 01/03/19 13:59 Pantoprazole (Protonix) 40 mg DAILY IVP 12/05/18 09:00 01/04/19 08:59 12/21/18 08:43 Tigecycline 50 mg/ Sodium Chloride 110 ml @ 220 mls/hr EVERY 12 HOURS IVPB 12/10/18 21:00 12/21/18 20:59 12/21/18 08:44 Rayo Bhatti MD Dec 21, 2018 10:35
[2018-12-21] MEDS: Colistin for inhalation INH SCH ×2 (10:42→23:22)
--- NOTE | 2018-12-21 10:56 | 48 Hour Post Anesthesia Eval ---
Post Anesthesia Evaluation Procedure: Tracheostomy Date of Evaluation: Dec 21, 2018 Time of Evaluation: 09:10 Blood Pressure Systolic: 105 0: 40 Pulse Rate: 101 Respiratory Rate: 21 Temperature (Fahrenheit): 99.2 O2 Sat by Pulse Oximetry: 100 Airway: patent Nausea: No Vomiting: No Pain Intensity: 0 Hydration Status: adequate Cardiopulmonary Status: at baseline Mental Status/LOC: patient returned to baseline Post-Anesthesia Complications: 0 Follow-up care needed: N/A - further care as per primary team Kavita Kumari MD Dec 21, 2018 10:56
--- NOTE | 2018-12-21 11:30 | Diagnostic Imaging Report ---
Indication: Dyspnea Comparison: 12/20/2018 A single view chest radiograph was obtained. Findings: Patchy infiltrates again noted bilaterally. Heart size remains normal. Tracheostomy, gastrostomy and PICC line are stable. IMPRESSION: No change suggestion day.
--- NOTE | 2018-12-21 12:00 | NUR ---
NURSE NOTES: Patient's temp is now 97.6F axillary. Ice packs removed. Wll continue to monitor.
--- NOTE | 2018-12-21 13:00 | Cardiac Electrophysiology PN ---
Assessment/Plan Assessment/Plan 1. CHF with elevated BNP. Echo EF 55% to 60% with diastolic dysfunction. 2. Respiratory failure on the ventilator and IV antibiotic per ID and Dr. Fritz. S/P Tracheostomy yesterday 3. Hypertension. Off meds. 4. Severe sepsis, likely due to pneumonia 5. Diabetes 6. Dysphagia, status post PEG placement. 7. Azotemia, DW RN Subjective Subjective In ICU on the vent in NAD via new Tracheostomy that was done yesterday. Objective Last 24 Hour Vital Signs Date Time Temp Pulse Resp B/P (MAP) Pulse Ox O2 Delivery O2 Flow Rate FiO2 12/21/18 12:00 99 12/21/18 12:00 25 12/21/18 12:00 97.6 100 19 150/48 (82) 100 12/21/18 12:00 Mechanical Ventilator Mechanical Ventilator 12/21/18 11:00 97 20 164/41 (82) 100 12/21/18 10:56 101 21 100 12/21/18 10:55 100 23 100 12/21/18 10:42 98 20 100 Mechanical Ventilator 25 12/21/18 10:41 94 20 25 12/21/18 10:00 99.2 101 22 115/61 (79) 100 12/21/18 09:00 101 21 105/40 (61) 100 12/21/18 08:53 106 23 25 12/21/18 08:00 Mechanical Ventilator Mechanical Ventilator 12/21/18 08:00 25 12/21/18 08:00 99.6 98 20 138/57 (84) 99 12/21/18 08:00 99 12/21/18 07:30 25 12/21/18 07:30 25 12/21/18 07:00 90 18 138/81 (100) 100 12/21/18 06:40 89 20 25 12/21/18 06:00 92 22 141/39 (73) 100 12/21/18 05:00 92 22 138/84 (102) 100 12/21/18 04:59 92 21 25 12/21/18 04:00 Mechanical Ventilator Mechanical Ventilator 12/21/18 04:00 94 12/21/18 04:00 25 12/21/18 04:00 98.9 90 19 146/65 (92) 100 12/21/18 03:25 92 23 25 12/21/18 03:00 94 22 101/55 (70) 100 12/21/18 02:00 94 22 149/77 (101) 100 12/21/18 01:59 95 23 25 12/21/18 01:00 95 22 143/68 (93) 99 12/21/18 00:00 25 12/21/18 00:00 Mechanical Ventilator Mechanical Ventilator 12/21/18 00:00 99.8 90 19 140/70 (93) 100 12/21/18 00:00 91 12/20/18 23:14 90 22 100 Mechanical Ventilator 25 12/20/18 23:00 94 22 134/72 (92) 100 12/20/18 22:58 93 22 25 12/20/18 22:57 93 21 100 Mechanical Ventilator 25 12/20/18 22:00 94 22 138/76 (96) 100 12/20/18 21:58 97 26 25 12/20/18 21:00 91 19 124/65 (84) 100 12/20/18 20:00 Mechanical Ventilator Mechanical Ventilator 12/20/18 20:00 94 12/20/18 20:00 98.0 93 19 128/68 (88) 100 12/20/18 20:00 25 12/20/18 19:33 34 24 25 12/20/18 19:00 88 19 107/60 (76) 100 12/20/18 18:00 91 20 106/59 (75) 100 12/20/18 17:12 95 18 25 12/20/18 17:00 92 19 107/82 (90) 100 12/20/18 16:30 94 17 118/62 (80) 100 12/20/18 16:00 Mechanical Ventilator Mechanical Ventilator 12/20/18 16:00 25 12/20/18 16:00 92 12/20/18 16:00 99.0 95 16 111/60 (77) 100 12/20/18 15:30 97 16 111/57 (75) 100 12/20/18 15:03 97 16 25 12/20/18 15:00 96 16 102/62 (75) 100 12/20/18 14:45 95 16 119/77 (91) 100 12/20/18 14:30 101 21 116/73 (87) 100 12/20/18 14:15 98.0 100 16 137/68 (91) 100 12/20/18 14:00 147/71 12/20/18 14:00 25 12/20/18 14:00 101 16 147/71 (96) 100 12/20/18 14:00 92 20 98 Intake and Output 12/20/18 12/21/18 19:00 07:00 Intake Total 380 ml 920 ml Output Total 870 ml 800 ml Balance -490 ml 120 ml Free Water 30 ml 150 ml IV Total 110 ml 110 ml Tube Feeding 240 ml 660 ml Output Urine Total 795 ml 700 ml Stool Total 75 ml 100 ml Laboratory Tests Test 12/21/18 04:30 12/21/18 08:20 White Blood Count 17.4 K/UL (4.8-10.8) H Red Blood Count 3.64 M/UL (4.70-6.10) L Hemoglobin 9.3 G/DL (14.2-18.0) L Hematocrit 29.5 % (42.0-52.0) L Mean Corpuscular Volume 81 FL (80-99) Mean Corpuscular Hemoglobin 25.6 PG (27.0-31.0) L Mean Corpuscular Hemoglobin Concent 31.7 G/DL (32.0-36.0) L Red Cell Distribution Width 18.1 % (11.6-14.8) H Platelet Count 302 K/UL (150-450) Mean Platelet Volume 8.4 FL (6.5-10.1) Neutrophils (%) (Auto) 79.0 % (45.0-75.0) H Lymphocytes (%) (Auto) 11.3 % (20.0-45.0) L Monocytes (%) (Auto) 7.1 % (1.0-10.0) Eosinophils (%) (Auto) 1.3 % (0.0-3.0) Basophils (%) (Auto) 1.2 % (0.0-2.0) Sodium Level 137 MMOL/L (136-145) Potassium Level 4.8 MMOL/L (3.5-5.1) Chloride Level 105 MMOL/L (98-107) Carbon Dioxide Level 24 MMOL/L (21-32) Anion Gap 8 mmol/L (5-15) Blood Urea Nitrogen 39 mg/dL (7-18) H Creatinine 1.2 MG/DL (0.55-1.30) Estimat Glomerular Filtration Rate mL/min (>60) Glucose Level 120 MG/DL (74-106) H Calcium Level 8.1 MG/DL (8.5-10.1) L Phosphorus Level 4.9 MG/DL (2.5-4.9) Magnesium Level 2.0 MG/DL (1.8-2.4) Total Bilirubin 0.5 MG/DL (0.2-1.0) Aspartate Amino Transf (AST/SGOT) 22 U/L (15-37) Alanine Aminotransferase (ALT/SGPT) 20 U/L (12-78) Alkaline Phosphatase 156 U/L (46-116) H Total Protein 8.8 G/DL (6.4-8.2) H Albumin 1.7 G/DL (3.4-5.0) L Globulin 7.1 g/dL Albumin/Globulin Ratio 0.2 (1.0-2.7) L Arterial Blood pH 7.417 (7.350-7.450) Arterial Blood Partial Pressure CO2 31.2 mmHg (35.0-45.0) L Arterial Blood Partial Pressure O2 94.3 mmHg (75.0-100.0) Arterial Blood HCO3 19.6 mmol/L (22.0-26.0) L Arterial Blood Oxygen Saturation 96.2 % (95-100) Arterial Blood Base Excess -4.1 (-2-2) L Aroldo Test Positive Microbiology Date/Time Source Procedure Growth Status 12/19/18 15:00 Sputum Gram Stain - Final Resulted 12/19/18 15:00 Sputum Sputum Culture - Preliminary Resulted Objective HEAD AND NECK: Tracheostomy now in place. LUNGS: Coarse rhonchi. CARDIOVASCULAR: Regular S1 and S2 and mildly tachycardic. ABDOMEN: Status post G-tube. EXTREMITIES: No pitting edema. Darrell Cevallos MD Dec 21, 2018 13:00
[2018-12-21] MEDS: LORazepam Inj 2mg/ml 1ml IV PRN (14:15)
--- NOTE | 2018-12-21 14:15 | NUR ---
NURSE NOTES: Patient noted to be restless in bed, PRN 0.5mg Ativan IV administered.
--- NOTE | 2018-12-21 15:01 | Internal Med Progress Note ---
Subjective Physician Name ByronTye Attending Physician Isaiah Fritz MD Current Medications Medications (Trade) Dose Ordered Sig/Courtney Route PRN Reason Start Time Stop Time Status Last Admin Dose Admin Acetaminophen (Tylenol) 650 mg Q4H PRN ORAL fever 12/04/18 14:00 01/03/19 13:59 12/18/18 20:27 Chlorhexidine Gluconate (Amna-Hex 2%) 1 applic DAILY@2000 TOPIC 12/13/18 20:00 01/12/19 19:59 12/20/18 19:50 Colistimethate Sodium (Colistin *inhalation use only*) 150 mg Q12HR@10,22 INH 12/18/18 10:00 12/25/18 09:59 12/21/18 10:42 Heparin Sodium (Porcine) (Heparin 5000 units/ml) 5,000 units EVERY 12 HOURS SUBQ 12/04/18 21:00 01/03/19 20:59 12/21/18 08:45 Levothyroxine Sodium (Synthroid) 25 mcg DAILY@0630 ORAL 12/09/18 06:30 01/08/19 06:29 12/21/18 05:52 Lorazepam (Ativan 2mg/ml 1ml) 0.5 mg Q6H PRN IV For Anxiety 12/14/18 15:15 12/21/18 15:14 12/21/18 14:15 Norepinephrine Bitartrate 4 mg/ Dextrose 254 ml @ 0 mls/hr Q24H IV 12/04/18 14:00 01/03/19 13:59 Pantoprazole (Protonix) 40 mg DAILY IVP 12/05/18 09:00 01/04/19 08:59 12/21/18 08:43 Tigecycline 50 mg/ Sodium Chloride 110 ml @ 220 mls/hr EVERY 12 HOURS IVPB 12/21/18 21:00 01/01/19 20:59 Allergies: Coded Allergies: No Known Allergies (Unverified , 12/04/18) Subjective Awake, Responsive with open eyes,in ICU, on Vent / Trach, + Diarrhea. Objective Last Vital Signs Date Time Temp Pulse Resp B/P (MAP) Pulse Ox O2 Delivery O2 Flow Rate FiO2 12/21/18 14:00 100 22 158/49 (85) 99 12/21/18 13:05 25 12/21/18 12:00 97.6 12/21/18 12:00 Mechanical Ventilator Mechanical Ventilator Laboratory Tests Test 12/21/18 04:30 12/21/18 08:20 White Blood Count 17.4 K/UL (4.8-10.8) H Red Blood Count 3.64 M/UL (4.70-6.10) L Hemoglobin 9.3 G/DL (14.2-18.0) L Hematocrit 29.5 % (42.0-52.0) L Mean Corpuscular Volume 81 FL (80-99) Mean Corpuscular Hemoglobin 25.6 PG (27.0-31.0) L Mean Corpuscular Hemoglobin Concent 31.7 G/DL (32.0-36.0) L Red Cell Distribution Width 18.1 % (11.6-14.8) H Platelet Count 302 K/UL (150-450) Mean Platelet Volume 8.4 FL (6.5-10.1) Neutrophils (%) (Auto) 79.0 % (45.0-75.0) H Lymphocytes (%) (Auto) 11.3 % (20.0-45.0) L Monocytes (%) (Auto) 7.1 % (1.0-10.0) Eosinophils (%) (Auto) 1.3 % (0.0-3.0) Basophils (%) (Auto) 1.2 % (0.0-2.0) Sodium Level 137 MMOL/L (136-145) Potassium Level 4.8 MMOL/L (3.5-5.1) Chloride Level 105 MMOL/L (98-107) Carbon Dioxide Level 24 MMOL/L (21-32) Anion Gap 8 mmol/L (5-15) Blood Urea Nitrogen 39 mg/dL (7-18) H Creatinine 1.2 MG/DL (0.55-1.30) Estimat Glomerular Filtration Rate mL/min (>60) Glucose Level 120 MG/DL (74-106) H Calcium Level 8.1 MG/DL (8.5-10.1) L Phosphorus Level 4.9 MG/DL (2.5-4.9) Magnesium Level 2.0 MG/DL (1.8-2.4) Total Bilirubin 0.5 MG/DL (0.2-1.0) Aspartate Amino Transf (AST/SGOT) 22 U/L (15-37) Alanine Aminotransferase (ALT/SGPT) 20 U/L (12-78) Alkaline Phosphatase 156 U/L (46-116) H Total Protein 8.8 G/DL (6.4-8.2) H Albumin 1.7 G/DL (3.4-5.0) L Globulin 7.1 g/dL Albumin/Globulin Ratio 0.2 (1.0-2.7) L Arterial Blood pH 7.417 (7.350-7.450) Arterial Blood Partial Pressure CO2 31.2 mmHg (35.0-45.0) L Arterial Blood Partial Pressure O2 94.3 mmHg (75.0-100.0) Arterial Blood HCO3 19.6 mmol/L (22.0-26.0) L Arterial Blood Oxygen Saturation 96.2 % (95-100) Arterial Blood Base Excess -4.1 (-2-2) L Aroldo Test Positive Microbiology Date/Time Source Procedure Growth Status 12/19/18 15:00 Sputum Gram Stain - Final Resulted 12/19/18 15:00 Sputum Sputum Culture - Preliminary Resulted Intake and Output 12/20/18 12/21/18 19:00 07:00 Intake Total 380 ml 920 ml Output Total 870 ml 800 ml Balance -490 ml 120 ml Free Water 30 ml 150 ml IV Total 110 ml 110 ml Tube Feeding 240 ml 660 ml Output Urine Total 795 ml 700 ml Stool Total 75 ml 100 ml Objective General: awake, responsive with open eyes. HEENT: NCAT, sclera anicteric, PERRL, trach side intact. Neck: Supple, no significant jugular venous distention, Lungs: Mechanical breath sound, decrease air at bases. no Wheeze or Rales, + Coarse breath sound. Heart: Regular rate and rhythm, normal S1/S2, no murmur. Abdomen: soft, nontender, nondistended. Normoactive bowel sounds, PEG site intact, + umbilical hernia. / Rectal: Andrade cath / rectal tube. Extremities: No Cyanosis , clubbing, right upper extremity edema. Left upper extremity PICC line. Neuro: Awake, Able to move lower extremities extremities slowly. Skin: warm, no rashes Assessment/Plan Assessment/Plan Assessment: Severe Sepsis- likely 2ry to PNA, r/o bacteremia, UTI. Possible Flu despite neg screen test Acute respiratory failure s/p intubation 12/04 --> S/P tracheostomy (12/20/2018). ELICIA COPD DM2 HTN Dysphagia s/p G-tube Dementia Diarrhea, C. diff negative Plan: -Antibiotics: Tigecycline and INH Colistin -monitor labs and cultures, Tube feeding @ 60 CC / HR. Heparin SQ Full code. Discharge planning for [facility]. Tye Matthews MD Dec 21, 2018 15:01
--- NOTE | 2018-12-21 16:22 | NUR ---
TRANSFER TO FLOOR: Patient transferred to [facility] room 235-2, per Dr. Fritz. Transferred with all medications. No belongings. Family informed of transfer.
--- NOTE | 2018-12-21 16:35 | NUR ---
RESPIRATORY NOTE: Transferred pt to [facility] on 15L 100% ambu bag without incidents. Pt's resting comfortably, no SOB or resp distress noted. Vent plugged into red outlet, ambubag and spare trach at bedside, alarms are set and audible. Vent circuit and Sxn tubbing secure and out of the way. Will continue to monitor pt.
--- NOTE | 2018-12-21 19:17 | NUR ---
HAND-OFF: Report given to Anuja Justin RN.
--- NOTE | 2018-12-21 19:32 | NUR ---
NURSE NOTES: Report received from DARIANA Akers. Observed pt lying on the bed. Arousable by shaking. SR with conveyor monitor. Trach to vent, Shiley 8, AC 16, TD 600, FIO2 25. G-tube intact and running Jevity 1.2 @60cc/hr. Rectal tube intact and draining well. PICC line L UA, intact and TKO. Bed in the lowest position. Side rails up x3. Will continue to monitor.
[2018-12-21] MEDS: Dyna-Hex 2% Top Sol 2oz TOPIC SCH (20:27)
[2018-12-21] MEDS ORDERED: Tigecycline 50 MG in NS 110 ML IVPB SCH (21:00)
[2018-12-22] VITALS: BP 114/73
--- NOTE | 2018-12-22 | NUR ---
NURSE NOTES: Observed pt sleeping on the bed. Well tolerated to current vent setting. Oral care done. 0ml of residual from Gtube noted and flushed 30cc. Bed in the lowest position. Side rails up x3. Will continue to monitor.
[2018-12-22 04:00] VITALS: BP 137/73
--- NOTE | 2018-12-22 04:15 | NUR ---
NURSE NOTES: Noted pt temperature of 100.4. PRN med given. Observed pt sleeping on the bed. No signs of pain noted at this time. Will continue to monitor.
[2018-12-22 05:22] LABS: BASOPHILS % (AUTO) 0.7 % (0.0-2.0); EOSINOPHILS % (AUTO) 0.9 % (0.0-3.0); HEMATOCRIT 27.6 % (42.0-52.0); HEMOGLOBIN 8.5 G/DL (14.2-18.0); LYMPHOCYTES % (AUTO) 16.5 % (20.0-45.0); MEAN CORPUSCULAR VOLUME 82 FL (80-99); MONOCYTES % (AUTO) 6.2 % (1.0-10.0); NEUTROPHILS % (AUTO) 75.7 % (45.0-75.0); PLATELET COUNT 274 K/UL (150-450); RED BLOOD COUNT 3.36 M/UL (4.70-6.10); RED CELL DISTRIBUTION WIDTH 18.2 % (11.6-14.8); WHITE BLOOD COUNT 15.3 K/UL (4.8-10.8)
[2018-12-22 05:51] LABS: ALANINE AMINOTRANSFERASE 18 U/L (12-78); ALBUMIN 1.6 G/DL (3.4-5.0); ALBUMIN/GLOBULIN RATIO 0.2 (1.0-2.7); ALKALINE PHOSPHATASE 148 U/L (46-116); ANION GAP 9 mmol/L (5-15); ASPARTATE AMINO TRANSFERASE 28 U/L (15-37); BILIRUBIN,TOTAL 0.8 MG/DL (0.2-1.0); BLOOD UREA NITROGEN 43 mg/dL (7-18); CALCIUM 8.6 MG/DL (8.5-10.1); CARBON DIOXIDE 24 MMOL/L (21-32); CHLORIDE 107 MMOL/L (98-107); CREATININE 1.1 MG/DL (0.55-1.30); POTASSIUM 4.5 MMOL/L (3.5-5.1); SODIUM 140 MMOL/L (136-145)
[2018-12-22] MEDS: Levothyroxine 25mcg tab ORAL SCH (06:33)
--- NOTE | 2018-12-22 07:00 | NUR ---
Received Patient on Vent ACVC VT 600, RR 16, FIO2 25%, PEEP +0. Patient has a cuffed Shiley 8 tracheostomy tube, secured by trache ties. Breath sounds reveal bilateral rhonchi. Suction thick white/ shah secretions PRN. Patient currently sleeping, no SOB noticed. Vent plugged into red outlet. Alarms are on and audible. Will continue to monitor throughout the day.
--- NOTE | 2018-12-22 07:35 | NUR ---
NURSE NOTES: Received report from Anuja Justin RN. Patient asleep in bed, opens eyes to voice, nonverbal. Trach to vent with settings of AC 16, TV 600, FiO2 25%, no PEEP. No s/s of respiratory distress noted. GT feeding of Jevity 1.2 on hold for synthroid administration, restarted at 60 cc/hr. HoB elevated. Andrade catheter and rectal tube in place and draining well. Left upper arm PICC patent and asymptomatic. Patient is warm to touch, cooling measures and ice packs provided. Bed locked in lowest position with side rails up x 3. All needs attended to. Call light within reach. Will continue to monitor.
--- NOTE | 2018-12-22 07:36 | NUR ---
HAND-OFF: Report given to DARIANA Akers.
[2018-12-22 08:00] VITALS: BP 160/97
[2018-12-22] MEDS: Tigecycline 50 MG in NS 110 ML IVPB SCH ×2 (08:46→20:19)
[2018-12-22] MEDS: Pantoprazole Inj IVP SCH (08:46)
[2018-12-22] MEDS: Heparin 5000 units/ml inj SUBQ SCH ×2 (08:54→20:21)
[2018-12-22] MEDS: Colistin for inhalation INH SCH (09:01)
--- NOTE | 2018-12-22 11:07 | Diagnostic Imaging Report ---
EXAM: XR Chest, 1 View CLINICAL HISTORY: DYSPNEA TECHNIQUE: Frontal view of the chest. COMPARISON: Chest x-ray, 12/21/18 at 734 FINDINGS: Lungs: Slightly increased bilateral interstitial and airspace opacities. Pleural space: Unremarkable. No pneumothorax. Heart: Unremarkable. No cardiomegaly. Mediastinum: Unremarkable. Bones/joints: Unremarkable. Tubes, lines and devices: Stable tracheostomy tube. Stable left PICC line. IMPRESSION: Slightly increased bilateral interstitial and airspace opacities.
--- NOTE | 2018-12-22 11:49 | NUR ---
HAND-OFF: Report given to Maryan Watson RN.
[2018-12-22 12:00] VITALS: BP 160/80
--- NOTE | 2018-12-22 12:00 | NUR ---
CASE MANAGEMENT: REVIEW SI: PNA . SEPSIS . RESPIRATORY FAILURE TRACHEOSTOMY 12/20 T 98.9 HR 108 RR 22 BP 160/97 SAT 96% MECH VENT FIO2 25 WBC 15.3 H/H 8.5/27.6 BUN 43 ALK PHOS 148 IS: TIGECYCLINE IV Q12HR PROTONIX IV QD COLISTIN INH Q12HR GT FEEDING JEVITY 1.2 @60ML/HR STEP DOWN UNIT STATUS DCP: PATIENT IS FROM [facility]
--- NOTE | 2018-12-22 12:15 | Pulmonolgy Critical Care Note ---
Critical Care - Asmt/Plan Problems: (1) Acute respiratory failure (2) Septic shock (3) Feeding by G-tube (4) ATN (acute tubular necrosis) (5) Diabetes mellitus, type II (6) COPD (chronic obstructive pulmonary disease) (7) History of hypertension (8) Hypothyroidism Respiratory: monitor respiratory rate, adjust FIO2, CXR Cardiac: continue to monitor HR/BP Renal: F/U I&O, keep IV fluid Infectious Disease: check cultures Gastrointestinal: continue feedings/current rate, hold feedings Endocrine: monitor blood sugar, check TSH Hematologic: monitor H/H Neurologic: PRN Ativan Prophylaxis: Protonix Critical Care - Objective Last 24 Hour Vital Signs Date Time Temp Pulse Resp B/P (MAP) Pulse Ox O2 Delivery O2 Flow Rate FiO2 12/22/18 11:17 97 21 25 12/22/18 09:36 97 12/22/18 09:01 97 20 100 Mechanical Ventilator 12/22/18 08:57 94 20 25 12/22/18 08:55 93 22 100 Mechanical Ventilator 12/22/18 08:00 25 12/22/18 08:00 Mechanical Ventilator Mechanical Ventilator 12/22/18 08:00 98.9 96 21 160/97 (118) 96 12/22/18 07:29 70 21 25 12/22/18 04:49 99.0 12/22/18 04:31 108 24 25 12/22/18 04:00 105 12/22/18 04:00 Mechanical Ventilator Mechanical Ventilator 12/22/18 04:00 100.4 100 22 137/73 (94) 100 12/22/18 04:00 25 12/22/18 02:32 106 22 25 12/22/18 01:20 104 23 25 12/22/18 00:00 97.7 105 21 114/73 (87) 100 12/22/18 00:00 25 12/22/18 00:00 106 12/22/18 00:00 Mechanical Ventilator Mechanical Ventilator 12/21/18 23:31 102 22 100 Mechanical Ventilator 12/21/18 23:23 99 19 100 Mechanical Ventilator 12/21/18 23:22 104 19 25 12/21/18 21:04 100 20 25 12/21/18 20:00 25 12/21/18 20:00 102 12/21/18 20:00 Mechanical Ventilator Mechanical Ventilator 12/21/18 20:00 99.1 105 20 131/56 (81) 100 12/21/18 18:50 102 20 25 12/21/18 16:32 102 23 25 12/21/18 16:00 99.3 106 24 160/45 (83) 99 12/21/18 16:00 99 12/21/18 16:00 Mechanical Ventilator Mechanical Ventilator 12/21/18 16:00 25 12/21/18 15:00 98 21 149/46 (80) 100 12/21/18 14:40 99 24 25 12/21/18 14:00 100 22 158/49 (85) 99 12/21/18 14:00 158/49 12/21/18 13:05 96 24 25 12/21/18 13:00 101 23 149/75 (99) 100 Status: awake Condition: critical Neck: full ROM Lungs: chest wall tender Heart: HR/BP stable, regular Abdomen: soft, non-tender Extremities: edema Decubiti: location Micro: Microbiology Date/Time Source Procedure Growth Status 12/19/18 15:00 Sputum Gram Stain - Final Complete 12/19/18 15:00 Sputum Sputum Culture - Final NORMAL UPPER RESPIRATORY GÓMEZ AT 48 ... Complete Accucheck: 101 Critical Care - Subjective ROS Limited/Unobtainable: Yes Condition: critical EKG Rhythm: Sinus Rhythm FI02: 25 Vent Support Breath Rate: 16 Vent Support Mode: AC Vent Tidal Volume: 600 Sputum Amount: Small PEEP: 0.0 PIP: 26 Tube Feeding Amount: 60 I&O: Intake and Output 12/21/18 12/22/18 19:00 07:00 Intake Total 955 ml 800 ml Output Total 835 ml 640 ml Balance 120 ml 160 ml Free Water 125 ml 90 ml IV Total 110 ml 110 ml Tube Feeding 720 ml 600 ml Output Urine Total 710 ml 600 ml Stool Total 125 ml 40 ml CXR: no change ET-Tube: 8.0 ET Position: 24 Labs: Laboratory Tests Test 12/22/18 04:10 White Blood Count 15.3 K/UL (4.8-10.8) H Red Blood Count 3.36 M/UL (4.70-6.10) L Hemoglobin 8.5 G/DL (14.2-18.0) L Hematocrit 27.6 % (42.0-52.0) L Mean Corpuscular Volume 82 FL (80-99) Mean Corpuscular Hemoglobin 25.3 PG (27.0-31.0) L Mean Corpuscular Hemoglobin Concent 30.8 G/DL (32.0-36.0) L Red Cell Distribution Width 18.2 % (11.6-14.8) H Platelet Count 274 K/UL (150-450) Mean Platelet Volume 8.5 FL (6.5-10.1) Neutrophils (%) (Auto) 75.7 % (45.0-75.0) H Lymphocytes (%) (Auto) 16.5 % (20.0-45.0) L Monocytes (%) (Auto) 6.2 % (1.0-10.0) Eosinophils (%) (Auto) 0.9 % (0.0-3.0) Basophils (%) (Auto) 0.7 % (0.0-2.0) Sodium Level 140 MMOL/L (136-145) Potassium Level 4.5 MMOL/L (3.5-5.1) Chloride Level 107 MMOL/L (98-107) Carbon Dioxide Level 24 MMOL/L (21-32) Anion Gap 9 mmol/L (5-15) Blood Urea Nitrogen 43 mg/dL (7-18) H Creatinine 1.1 MG/DL (0.55-1.30) Estimat Glomerular Filtration Rate mL/min (>60) Glucose Level 133 MG/DL (74-106) H Calcium Level 8.6 MG/DL (8.5-10.1) Total Bilirubin 0.8 MG/DL (0.2-1.0) Aspartate Amino Transf (AST/SGOT) 28 U/L (15-37) Alanine Aminotransferase (ALT/SGPT) 18 U/L (12-78) Alkaline Phosphatase 148 U/L (46-116) H Pro-B-Type Natriuretic Peptide 120 pg/mL (0-125) Total Protein 8.3 G/DL (6.4-8.2) H Albumin 1.6 G/DL (3.4-5.0) L Globulin 6.7 g/dL Albumin/Globulin Ratio 0.2 (1.0-2.7) L Isaiah Fritz MD Dec 22, 2018 12:15
--- NOTE | 2018-12-22 12:25 | Internal Med Progress Note ---
Subjective Physician Name Tye Matthews Attending Physician Isaiah Fritz MD Current Medications Medications (Trade) Dose Ordered Sig/Courtney Route PRN Reason Start Time Stop Time Status Last Admin Dose Admin Acetaminophen (Tylenol) 650 mg Q4H PRN ORAL fever 12/21/18 16:41 01/03/19 16:40 12/22/18 04:19 Chlorhexidine Gluconate (Amna-Hex 2%) 1 applic DAILY@2000 TOPIC 12/21/18 20:00 01/12/19 19:59 12/21/18 20:27 Colistimethate Sodium (Colistin *inhalation use only*) 150 mg Q12HR@10,22 INH 12/21/18 22:00 12/25/18 09:59 12/22/18 09:01 Heparin Sodium (Porcine) (Heparin 5000 units/ml) 5,000 units EVERY 12 HOURS SUBQ 12/21/18 21:00 01/03/19 20:59 12/22/18 08:54 Levothyroxine Sodium (Synthroid) 25 mcg DAILY@0630 ORAL 12/22/18 06:30 01/08/19 06:29 12/22/18 06:33 Pantoprazole (Protonix) 40 mg DAILY IVP 12/22/18 09:00 01/04/19 08:59 12/22/18 08:46 Tigecycline 50 mg/ Sodium Chloride 110 ml @ 220 mls/hr EVERY 12 HOURS IVPB 12/21/18 21:00 01/01/19 20:59 12/22/18 08:46 Allergies: Coded Allergies: No Known Allergies (Unverified , 12/04/18) Subjective Awake, Responsive with open eyes,in NANDO, on Vent / Trach, + Diarrhea, WBC: 15.3. Objective Last Vital Signs Date Time Temp Pulse Resp B/P (MAP) Pulse Ox O2 Delivery O2 Flow Rate FiO2 12/22/18 11:17 97 21 25 12/22/18 09:01 100 Mechanical Ventilator 12/22/18 08:00 98.9 160/97 (118) Laboratory Tests Test 12/22/18 04:10 White Blood Count 15.3 K/UL (4.8-10.8) H Red Blood Count 3.36 M/UL (4.70-6.10) L Hemoglobin 8.5 G/DL (14.2-18.0) L Hematocrit 27.6 % (42.0-52.0) L Mean Corpuscular Volume 82 FL (80-99) Mean Corpuscular Hemoglobin 25.3 PG (27.0-31.0) L Mean Corpuscular Hemoglobin Concent 30.8 G/DL (32.0-36.0) L Red Cell Distribution Width 18.2 % (11.6-14.8) H Platelet Count 274 K/UL (150-450) Mean Platelet Volume 8.5 FL (6.5-10.1) Neutrophils (%) (Auto) 75.7 % (45.0-75.0) H Lymphocytes (%) (Auto) 16.5 % (20.0-45.0) L Monocytes (%) (Auto) 6.2 % (1.0-10.0) Eosinophils (%) (Auto) 0.9 % (0.0-3.0) Basophils (%) (Auto) 0.7 % (0.0-2.0) Sodium Level 140 MMOL/L (136-145) Potassium Level 4.5 MMOL/L (3.5-5.1) Chloride Level 107 MMOL/L (98-107) Carbon Dioxide Level 24 MMOL/L (21-32) Anion Gap 9 mmol/L (5-15) Blood Urea Nitrogen 43 mg/dL (7-18) H Creatinine 1.1 MG/DL (0.55-1.30) Estimat Glomerular Filtration Rate mL/min (>60) Glucose Level 133 MG/DL (74-106) H Calcium Level 8.6 MG/DL (8.5-10.1) Total Bilirubin 0.8 MG/DL (0.2-1.0) Aspartate Amino Transf (AST/SGOT) 28 U/L (15-37) Alanine Aminotransferase (ALT/SGPT) 18 U/L (12-78) Alkaline Phosphatase 148 U/L (46-116) H Pro-B-Type Natriuretic Peptide 120 pg/mL (0-125) Total Protein 8.3 G/DL (6.4-8.2) H Albumin 1.6 G/DL (3.4-5.0) L Globulin 6.7 g/dL Albumin/Globulin Ratio 0.2 (1.0-2.7) L Microbiology Date/Time Source Procedure Growth Status 2/6/19 15:00 Sputum Gram Stain - Final Complete 12/19/18 15:00 Sputum Sputum Culture - Final NORMAL UPPER RESPIRATORY GÓMEZ AT 48 ... Complete Intake and Output 12/21/18 12/22/18 19:00 07:00 Intake Total 955 ml 800 ml Output Total 835 ml 640 ml Balance 120 ml 160 ml Free Water 125 ml 90 ml IV Total 110 ml 110 ml Tube Feeding 720 ml 600 ml Output Urine Total 710 ml 600 ml Stool Total 125 ml 40 ml Objective General: awake, responsive with open eyes. HEENT: NCAT, sclera anicteric, PERRL, trach side intact. Neck: Supple, no significant jugular venous distention, Lungs: Mechanical breath sound, decrease air at bases. no Wheeze or Rales. Heart: Regular rate and rhythm, normal S1/S2, no murmur. Abdomen: soft, nontender, nondistended. Normoactive bowel sounds, PEG site intact, + umbilical hernia. / Rectal: Andrade cath / rectal tube. Extremities: No Cyanosis , clubbing, right upper extremity edema. Left upper extremity PICC line. Neuro: Awake, Able to move lower extremities extremities slowly. Skin: warm, no rashes Assessment/Plan Assessment/Plan Assessment: Severe Sepsis- likely 2ry to PNA, r/o bacteremia, UTI. Possible Flu despite neg screen test Acute respiratory failure s/p intubation 12/04 --> S/P tracheostomy (12/20/2018). ELICIA COPD DM2 HTN Dysphagia s/p G-tube Dementia Diarrhea, C. diff negative Plan: -Antibiotics: Tigecycline and INH Colistin -monitor labs and cultures, Tube feeding @ 60 CC / HR. Heparin SQ Full code. Discharge planning to SNF. Tye Matthews MD Dec 22, 2018 12:25
--- NOTE | 2018-12-22 12:36 | NUR ---
NURSE NOTES: Received pt from Semaj raphael. pt is awake in bed, able to answer yes or no questions, tracks eyes. Shiley 8, AC 16/TV600/Get035%/peep0, Spo2 99%, RR 18. Breathing even and unlabored. diminished rachel. b/s. PEG running Jevity 1.2@60cc/hr, no residual. HOB 35 degrees. Pt has a FC and rectal tube draining well to gravity. BRADLEY PICC, dressing c/d/i, saline locked. Afebrile, ax temp 99.0. Pt is NSR on playground monitor, HR=92. Bed locked, alarmed and in lowest position. will continue to monitor.
--- NOTE | 2018-12-22 14:25 | Cardiac Electrophysiology PN ---
Assessment/Plan Assessment/Plan 1. CHF with elevated BNP. Echo EF 55% to 60% with diastolic dysfunction. 2. Respiratory failure on the ventilator and IV antibiotic per ID and Dr. Fritz. S/P Tracheostomy 12/20/18 3. Hypertension. Off meds. 4. Severe sepsis, likely due to pneumonia 5. Diabetes 6. Dysphagia, status post PEG placement. 7. Azotemia, DW RN Subjective Subjective Transferred out of ICU on the vent via new Tracheostomy Objective Last 24 Hour Vital Signs Date Time Temp Pulse Resp B/P (MAP) Pulse Ox O2 Delivery O2 Flow Rate FiO2 12/22/18 13:02 98 21 25 12/22/18 12:00 98.4 90 22 160/80 (106) 100 12/22/18 12:00 25 12/22/18 12:00 90 12/22/18 12:00 Mechanical Ventilator Mechanical Ventilator 12/22/18 11:17 97 21 25 12/22/18 09:36 97 12/22/18 09:01 97 20 100 Mechanical Ventilator 12/22/18 08:57 94 20 25 12/22/18 08:55 93 22 100 Mechanical Ventilator 12/22/18 08:00 25 12/22/18 08:00 Mechanical Ventilator Mechanical Ventilator 12/22/18 08:00 98.9 96 21 160/97 (118) 96 12/22/18 07:29 70 21 25 12/22/18 04:49 99.0 12/22/18 04:31 108 24 25 12/22/18 04:00 105 12/22/18 04:00 Mechanical Ventilator Mechanical Ventilator 12/22/18 04:00 100.4 100 22 137/73 (94) 100 12/22/18 04:00 25 12/22/18 02:32 106 22 25 12/22/18 01:20 104 23 25 12/22/18 00:00 97.7 105 21 114/73 (87) 100 12/22/18 00:00 25 12/22/18 00:00 106 12/22/18 00:00 Mechanical Ventilator Mechanical Ventilator 12/21/18 23:31 102 22 100 Mechanical Ventilator 25 12/21/18 23:23 99 19 100 Mechanical Ventilator 25 12/21/18 23:22 104 19 25 12/21/18 21:04 100 20 25 12/21/18 20:00 25 12/21/18 20:00 102 12/21/18 20:00 Mechanical Ventilator Mechanical Ventilator 12/21/18 20:00 99.1 105 20 131/56 (81) 100 12/21/18 18:50 102 20 25 12/21/18 16:32 102 23 25 12/21/18 16:00 99.3 106 24 160/45 (83) 99 12/21/18 16:00 99 12/21/18 16:00 Mechanical Ventilator Mechanical Ventilator 12/21/18 16:00 25 12/21/18 15:00 98 21 149/46 (80) 100 12/21/18 14:40 99 24 25 Intake and Output 12/21/18 12/22/18 19:00 07:00 Intake Total 955 ml 800 ml Output Total 835 ml 640 ml Balance 120 ml 160 ml Free Water 125 ml 90 ml IV Total 110 ml 110 ml Tube Feeding 720 ml 600 ml Output Urine Total 710 ml 600 ml Stool Total 125 ml 40 ml Laboratory Tests Test 12/22/18 04:10 White Blood Count 15.3 K/UL (4.8-10.8) H Red Blood Count 3.36 M/UL (4.70-6.10) L Hemoglobin 8.5 G/DL (14.2-18.0) L Hematocrit 27.6 % (42.0-52.0) L Mean Corpuscular Volume 82 FL (80-99) Mean Corpuscular Hemoglobin 25.3 PG (27.0-31.0) L Mean Corpuscular Hemoglobin Concent 30.8 G/DL (32.0-36.0) L Red Cell Distribution Width 18.2 % (11.6-14.8) H Platelet Count 274 K/UL (150-450) Mean Platelet Volume 8.5 FL (6.5-10.1) Neutrophils (%) (Auto) 75.7 % (45.0-75.0) H Lymphocytes (%) (Auto) 16.5 % (20.0-45.0) L Monocytes (%) (Auto) 6.2 % (1.0-10.0) Eosinophils (%) (Auto) 0.9 % (0.0-3.0) Basophils (%) (Auto) 0.7 % (0.0-2.0) Sodium Level 140 MMOL/L (136-145) Potassium Level 4.5 MMOL/L (3.5-5.1) Chloride Level 107 MMOL/L (98-107) Carbon Dioxide Level 24 MMOL/L (21-32) Anion Gap 9 mmol/L (5-15) Blood Urea Nitrogen 43 mg/dL (7-18) H Creatinine 1.1 MG/DL (0.55-1.30) Estimat Glomerular Filtration Rate mL/min (>60) Glucose Level 133 MG/DL (74-106) H Calcium Level 8.6 MG/DL (8.5-10.1) Total Bilirubin 0.8 MG/DL (0.2-1.0) Aspartate Amino Transf (AST/SGOT) 28 U/L (15-37) Alanine Aminotransferase (ALT/SGPT) 18 U/L (12-78) Alkaline Phosphatase 148 U/L (46-116) H Pro-B-Type Natriuretic Peptide 120 pg/mL (0-125) Total Protein 8.3 G/DL (6.4-8.2) H Albumin 1.6 G/DL (3.4-5.0) L Globulin 6.7 g/dL Albumin/Globulin Ratio 0.2 (1.0-2.7) L Microbiology Date/Time Source Procedure Growth Status 12/19/18 15:00 Sputum Gram Stain - Final Complete 12/19/18 15:00 Sputum Sputum Culture - Final NORMAL UPPER RESPIRATORY GÓMEZ AT 48 ... Complete Objective HEAD AND NECK: Tracheostomy in place. LUNGS: Coarse rhonchi. CARDIOVASCULAR: Regular S1 and S2 and mildly tachycardic. ABDOMEN: Status post G-tube. EXTREMITIES: No pitting edema. Darrell Cevallos MD Dec 22, 2018 14:25
--- NOTE | 2018-12-22 14:38 | NUR ---
NURSE NOTES: Dr Cevallos making rounds. Turned and repositioned, kept dry and clean. FC and rectal tube draining well. Will continue to monitor.
[2018-12-22 16:00] VITALS: BP 156/88
--- NOTE | 2018-12-22 19:17 | NUR ---
HAND-OFF: Report given to DARIANA Freitas.
--- NOTE | 2018-12-22 19:20 | NUR ---
NURSE NOTES: Received bedside report from DARIANA Martinez.Patient stable,no s/s of pain,no respiratory distress noted,SR-St Shiley 8 AC 16 TV 600 FiO2 25% no PEEP,GT running with Jevity 1.2 @ 60 ml/hr for 22 hrs d/t Synthroid,BS active in all quadrants,f/cath for urinary retention,IV asymptomatic,intact on BRADLEY PICC TKO,bed secured inn a low safety position,call light within a reach,will continue to monitor and follow POC.
[2018-12-22 20:00] VITALS: BP 157/78
[2018-12-22] MEDS ORDERED: NS 275ml ONE (20:05)
[2018-12-22] MEDS ORDERED: Tubing IV Secondary IV ONE (20:05)
[2018-12-22] MEDS: Dyna-Hex 2% Top Sol 2oz TOPIC SCH (20:19)
[2018-12-23] VITALS: BP 152/74
[2018-12-23] MEDS: Colistin for inhalation INH SCH ×3 (00:56→21:30)
[2018-12-23 04:00] VITALS: BP 157/114
[2018-12-23] MEDS: Levothyroxine 25mcg tab ORAL SCH (06:18)
--- NOTE | 2018-12-23 06:33 | NUR ---
RESPIRATORY NOTE: Received pt on current vent settings. Pt tracheostomy tube is patent and secured. No resp distress noted. Suctioned pt prn. Vent alarms are on and audible. Vent is plugged into red outlet. Will monitor pt progress.
--- NOTE | 2018-12-23 07:10 | NUR ---
HAND-OFF: Report given to DARIANA Cabrera.Patient stable.
--- NOTE | 2018-12-23 07:11 | NUR ---
NURSE NOTES: RECEIVED PATIENT FROM Miriam CONNER RN. PATIENT IS LYING IN BED,NONVERBAL BUT ABLE TO OPEN EYES. HOOKED TO VALANCE CUTTER. TRACH TO VENT. PORTEX 8, VENT SETTINGS AC 16, TV 600, FIO2 25%, PEEP 0. NO SIGNS OF DISTRESS. GT IN PLACE WITH GTF FEEDING JEVITY 1.2 AT 60CC FOR 22HOURS. NOTED RECTAL TUBE AND CHANCE CATHETER. PICC ON L UA, TKO. BED AT LOWEST POSITION, SIDE RAILS UP. CALL LIGHT WITHIN REACH. WILL CONTINUE TO MONITOR.
[2018-12-23 08:00] VITALS: BP 177/77
--- NOTE | 2018-12-23 08:22 | Infectious Diseases Prog Note ---
Assessment/Plan Assessment/Plan Assessment: Severe Sepsis- likely 2ry to PNA, r/o bacteremia, UTI. Possible Flu despite neg screen test -CXR: Bilateral diffuse interstitial and airspace infiltrates versus edema, worsening on the right over one day -Bcx NTD -u/a wbc 40-60, nit neg, leuk large; ucx 10-20 k P. mirablis ESBL (S Meropenem, Zosyn) -sp cx 12/20/18 - NF -influenza sc, legionela ag urine neg CT Chest 12/20/18 - Pulmonary infiltrates demonstrated bilaterally with most of airspace disease in the lower lobes right worse than left. Findings may be due to pneumonia. Please correlate clinically. Small bilateral pleural effusions slightly larger on the right. Small airways/reticular densities (tree-in-bud) also demonstrated. Differential diagnosis is large. Findings could certainly be related to bronchopneumonia, especially aspiration. Numerous other possibilities including bronchiolitis, TB , fungal, connective tissue disorders, among others. Fever, improving Leukocytosis stable Acute respiratory failure s/p intubation 12/04 ELICIA, improving COPD DM2 HTN dysphagia s/p G-tube dementia SNF resident Plan: - Continue Tigecycline #/ for Acinetobacter - Continue INH Colistin #/ - INH colistin #1 D/C 12/13/18 - f/u repeat blood Cx - Consider bronch given CT findings and continued leukocytosis -12/10/18 IV Vancomycin #7 and Meropenem #6 for PNA and UTI -12/10 SP Tamiflu #6 -12/05 AMikacin and Ertapenem #2 -12/07/18 SP empiric Azithromycin #3 -Monitor CBC/CMP, temperatures -ICU, ETT care -aspiration precautions Will continue to follow along with you. Subjective Allergies: Coded Allergies: No Known Allergies (Unverified , 12/04/18) Subjective Still on Vent 25% O2 Continued Leukocytosis Afebrile Objective Vital Signs Last 24 Hour Vital Signs Date Time Temp Pulse Resp B/P (MAP) Pulse Ox O2 Delivery O2 Flow Rate FiO2 12/23/18 08:00 25 12/23/18 08:00 100.0 112 24 177/77 (110) 100 12/23/18 06:33 99 20 25 12/23/18 05:00 97 20 25 12/23/18 04:00 25 12/23/18 04:00 Mechanical Ventilator Mechanical Ventilator 12/23/18 04:00 98.4 100 26 157/114 (128) 95 12/23/18 03:29 98 20 25 12/23/18 03:00 94 12/23/18 01:00 102 21 25 12/23/18 00:00 98.9 103 20 152/74 (100) 99 12/23/18 00:00 Mechanical Ventilator Mechanical Ventilator 12/22/18 23:40 102 22 98 Mechanical Ventilator 25 12/22/18 23:38 105 12/22/18 23:30 96 22 25 12/22/18 23:30 96 22 97 Mechanical Ventilator 25 12/22/18 21:30 100 20 25 12/22/18 20:00 Mechanical Ventilator Mechanical Ventilator 12/22/18 20:00 25 12/22/18 20:00 99.0 111 24 157/78 (104) 100 12/22/18 19:36 118 12/22/18 19:30 100 21 25 12/22/18 17:26 109 20 25 12/22/18 16:26 100 12/22/18 16:00 99.1 108 22 156/88 (110) 100 12/22/18 16:00 Mechanical Ventilator Mechanical Ventilator 12/22/18 16:00 25 12/22/18 15:16 112 16 25 12/22/18 13:02 98 21 25 12/22/18 12:00 98.4 90 22 160/80 (106) 100 12/22/18 12:00 25 12/22/18 12:00 90 12/22/18 12:00 Mechanical Ventilator Mechanical Ventilator 12/22/18 11:17 97 21 25 12/22/18 09:36 97 12/22/18 09:01 97 20 100 Mechanical Ventilator 25 12/22/18 08:57 94 20 25 12/22/18 08:55 93 22 100 Mechanical Ventilator 25 Height (Feet): 5 Height (Inches): 6.00 Weight (Pounds): 157 Objective Gen: NAD HEENT: NCAT, MMM, Intubated Lungs: Course B/L Heart: RRR Abdomen: soft, active bowel sounds Extremities: no C/C/E Microbiology Date/Time Source Procedure Growth Status 12/20/18 10:30 Blood Blood Culture - Preliminary NO GROWTH AFTER 48 HOURS Resulted 12/20/18 10:20 Blood Blood Culture - Preliminary NO GROWTH AFTER 48 HOURS Resulted Current Medications Medications (Trade) Dose Ordered Sig/Courtney Route PRN Reason Start Time Stop Time Status Last Admin Dose Admin Acetaminophen (Tylenol) 650 mg Q4H PRN ORAL fever 12/21/18 16:41 01/03/19 16:40 12/22/18 04:19 Chlorhexidine Gluconate (Amna-Hex 2%) 1 applic DAILY@1999 TOPIC 12/21/18 20:00 01/12/19 19:59 12/22/18 20:19 Colistimethate Sodium (Colistin *inhalation use only*) 150 mg Q12HR@, INH 12/21/18 22:00 12/25/18 09:59 12/23/18 00:56 Heparin Sodium (Porcine) (Heparin 5000 units/ml) 5,000 units EVERY 12 HOURS SUBQ 12/21/18 21:00 01/03/19 20:59 12/22/18 20:21 Levothyroxine Sodium (Synthroid) 25 mcg DAILY@0630 ORAL 12/22/18 06:30 01/08/19 06:29 12/23/18 06:18 Pantoprazole (Protonix) 40 mg DAILY IVP 12/22/18 09:00 01/04/19 08:59 12/22/18 08:46 Tigecycline 50 mg/ Sodium Chloride 110 ml @ 220 mls/hr EVERY 12 HOURS IVPB 12/21/18 21:00 01/01/19 20:59 12/22/18 20:19 Rayo Bhatti MD Dec 23, 2018 08:22
[2018-12-23] MEDS: Tigecycline 50 MG in NS 110 ML IVPB SCH ×2 (08:49→21:15)
[2018-12-23] MEDS: Pantoprazole Inj IVP SCH (08:50)
[2018-12-23] MEDS: Heparin 5000 units/ml inj SUBQ SCH ×2 (08:57→21:17)
--- NOTE | 2018-12-23 10:08 | NUR ---
CASE MANAGEMENT: REVIEW 12/23/2018 SI: SEPSIS. T 100 HR 112 RR 24 B/P 177/77 SATS 100% ON MECH VENT FiO2 25 NO LABS TODAY IS: TIGECYCLINE IV Q12HR PROTONIX IV QD COLISTIN INH Q12HR GT FEEDING JEVITY 1.2 @60ML/HR STEP DOWN UNIT STATUS DCP: PATIENT IS FROM [facility]
[2018-12-23 12:00] VITALS: BP 161/85
--- NOTE | 2018-12-23 12:57 | Internal Med Progress Note ---
Subjective Physician Name Tye Matthews Attending Physician Isaiah Fritz MD Current Medications Medications (Trade) Dose Ordered Sig/Courtney Route PRN Reason Start Time Stop Time Status Last Admin Dose Admin Acetaminophen (Tylenol) 650 mg Q4H PRN ORAL fever 12/21/18 16:41 01/03/19 16:40 12/23/18 08:59 Chlorhexidine Gluconate (Amna-Hex 2%) 1 applic DAILY@2000 TOPIC 12/21/18 20:00 01/12/19 19:59 12/22/18 20:19 Clonidine HCl (Catapres Tab) 0.1 mg Q6H PRN GT for SBP >160 12/23/18 08:30 01/22/19 08:29 12/23/18 08:58 Colistimethate Sodium (Colistin *inhalation use only*) 150 mg Q12HR@,22 INH 12/21/18 22:00 12/25/18 09:59 12/23/18 10:49 Heparin Sodium (Porcine) (Heparin 5000 units/ml) 5,000 units EVERY 12 HOURS SUBQ 12/21/18 21:00 01/03/19 20:59 12/23/18 08:57 Levothyroxine Sodium (Synthroid) 25 mcg DAILY@0630 ORAL 12/22/18 06:30 01/08/19 06:29 12/23/18 06:18 Pantoprazole (Protonix) 40 mg DAILY IVP 12/22/18 09:00 01/04/19 08:59 12/23/18 08:50 Tigecycline 50 mg/ Sodium Chloride 110 ml @ 220 mls/hr EVERY 12 HOURS IVPB 12/21/18 21:00 01/01/19 20:59 12/23/18 08:49 Allergies: Coded Allergies: No Known Allergies (Unverified , 12/04/18) Subjective Awake, alert, Responsive with open eyes,in NANDO, on Vent / Trach, + Diarrhea. Objective Last Vital Signs Date Time Temp Pulse Resp B/P (MAP) Pulse Ox O2 Delivery O2 Flow Rate FiO2 12/23/18 12:00 98.4 100 24 161/85 (110) 100 12/23/18 12:00 25 12/23/18 12:00 Mechanical Ventilator Mechanical Ventilator Intake and Output 2/9/19 2/10/19 19:00 07:00 Intake Total 460 ml 835 ml Output Total 850 ml 1100 ml Balance -390 ml -265 ml Free Water 50 ml 125 ml IV Total 110 ml 110 ml Tube Feeding 300 ml 600 ml Output Urine Total 850 ml 650 ml Stool Total 450 ml Objective General: awake, responsive with open eyes. HEENT: NCAT, sclera anicteric, PERRL, trach side intact. Neck: Supple, no significant jugular venous distention, Lungs: Mechanical breath sound, decrease air at bases. no Wheeze or Rales. Heart: Regular rate and rhythm, normal S1/S2, no murmur. Abdomen: soft, nontender, nondistended. Normoactive bowel sounds, PEG site intact, + umbilical hernia. / Rectal: Andraed cath / rectal tube. Extremities: No Cyanosis , clubbing, right upper extremity edema. Left upper extremity PICC line. Neuro: Awake, Able to move lower extremities extremities slowly. Skin: warm, no rashes Assessment/Plan Assessment/Plan Assessment: Severe Sepsis- likely 2ry to PNA, r/o bacteremia, UTI. Possible Flu despite neg screen test Acute respiratory failure s/p intubation 12/04 --> S/P tracheostomy (12/20/2018). ELICIA COPD DM2 HTN Dysphagia s/p G-tube Dementia Diarrhea, C. diff negative Plan: -Antibiotics: Tigecycline and INH Colistin -monitor labs and cultures, Tube feeding @ 60 CC / HR. Heparin SQ Full code. Discharge planning to SNF. Tye Matthews MD Dec 23, 2018 12:57
[2018-12-23] MEDS ORDERED: NS Irrig 1000ml ONE (13:16)
[2018-12-23] MEDS ORDERED: NS 275ml ONE (13:16)
--- NOTE | 2018-12-23 15:45 | Cardiac Electrophysiology PN ---
Assessment/Plan Assessment/Plan 1. CHF with elevated BNP due to diastolic dysfunction EF 55%. 2. Respiratory failure on the ventilator and IV antibiotic per ID and Dr. Fritz. S/P Tracheostomy 12/20/18 3. Hypertension. Off meds. 4. Severe sepsis, likely due to pneumonia 5. Diabetes 6. Dysphagia, status post PEG placement. 7. Azotemia, DW RN Subjective Subjective On the vent via Tracheostomy. No events. Objective Last 24 Hour Vital Signs Date Time Temp Pulse Resp B/P (MAP) Pulse Ox O2 Delivery O2 Flow Rate FiO2 12/23/18 14:37 82 20 25 12/23/18 12:42 98 20 25 12/23/18 12:00 98.4 100 24 161/85 (110) 100 12/23/18 12:00 96 12/23/18 12:00 25 12/23/18 12:00 Mechanical Ventilator Mechanical Ventilator 12/23/18 10:57 106 22 98 Mechanical Ventilator 25 12/23/18 10:49 97 22 99 Mechanical Ventilator 25 12/23/18 10:49 99 20 25 12/23/18 09:29 99.0 12/23/18 08:58 177/77 12/23/18 08:44 98 20 25 12/23/18 08:00 103 12/23/18 08:00 Mechanical Ventilator Mechanical Ventilator 12/23/18 08:00 25 12/23/18 08:00 100.0 112 24 177/77 (110) 100 12/23/18 06:33 99 20 25 12/23/18 05:00 97 20 25 12/23/18 04:00 25 12/23/18 04:00 Mechanical Ventilator Mechanical Ventilator 12/23/18 04:00 98.4 100 26 157/114 (128) 95 12/23/18 03:29 98 20 25 12/23/18 03:00 94 12/23/18 01:00 102 21 25 12/23/18 00:00 98.9 103 20 152/74 (100) 99 12/23/18 00:00 Mechanical Ventilator Mechanical Ventilator 12/22/18 23:40 102 22 98 Mechanical Ventilator 25 12/22/18 23:38 105 12/22/18 23:30 96 22 25 12/22/18 23:30 96 22 97 Mechanical Ventilator 25 12/22/18 21:30 100 20 25 12/22/18 20:00 Mechanical Ventilator Mechanical Ventilator 12/22/18 20:00 25 12/22/18 20:00 99.0 111 24 157/78 (104) 100 12/22/18 19:36 118 12/22/18 19:30 100 21 25 12/22/18 17:26 109 20 25 12/22/18 16:26 100 12/22/18 16:00 99.1 108 22 156/88 (110) 100 12/22/18 16:00 Mechanical Ventilator Mechanical Ventilator 12/22/18 16:00 25 Intake and Output 12/22/18 12/23/18 19:00 07:00 Intake Total 460 ml 835 ml Output Total 850 ml 1100 ml Balance -390 ml -265 ml Free Water 50 ml 125 ml IV Total 110 ml 110 ml Tube Feeding 300 ml 600 ml Output Urine Total 850 ml 650 ml Stool Total 450 ml Objective HEAD AND NECK: Tracheostomy in place. LUNGS: Coarse rhonchi. CARDIOVASCULAR: Regular S1 and S2 and mildly tachycardic. ABDOMEN: Status post G-tube. EXTREMITIES: No pitting edema. Darrell Cevallos MD Dec 23, 2018 15:45
[2018-12-23 16:00] VITALS: BP 147/76
--- NOTE | 2018-12-23 18:30 | NUR ---
NURSE NOTES: PATIENT KEPT CLEAN AND DRY. NO SIGNS OF DISTRESS. WILL CONTINUE TO MONITOR.
--- NOTE | 2018-12-23 19:15 | NUR ---
NURSE NOTES: Received report from Rick RN, pt. in bed awake, opens eyes- non-verbal, no signs or symptoms of acute cardiac or respiratory symptoms noted, pt. appears to be tolerating to be tolerating current vent settings well - AC16, TV 600, Foi2 25%, no peep- no distress noted, Jevity 1.2 running at 60cc/hr via G tube- no residual noted, Rectal tube intact and draining to gravity, Andrade intact and draining to gravity, pt. is clean and dry, bed in lowest position and call light within easy reach, bed alarm on, side rails up x's3- safety brakes engaged, safety measures continued, BRADLEY Picc line intact and patent- TKO, will continue with plan of care.
--- NOTE | 2018-12-23 19:38 | NUR ---
HAND-OFF: Report given to Milly Abrams RN.
[2018-12-23 20:00] VITALS: BP 148/77
--- NOTE | 2018-12-23 20:18 | Pulmonolgy Critical Care Note ---
Critical Care - Asmt/Plan Problems: (1) Acute respiratory failure (2) Septic shock (3) Feeding by G-tube (4) ATN (acute tubular necrosis) (5) Diabetes mellitus, type II (6) COPD (chronic obstructive pulmonary disease) (7) History of hypertension (8) Hypothyroidism Respiratory: monitor respiratory rate, adjust FIO2 Cardiac: continue to monitor HR/BP Renal: F/U I&O, keep IV fluid Infectious Disease: check cultures Gastrointestinal: continue feedings/current rate Endocrine: monitor blood sugar, check HgA1C Hematologic: monitor H/H, transfuse if hgb<8.5 Neurologic: PRN Morphine, keep patient comfortable Affect: PRN ativan Prophylaxis: Protonix Notes Reviewed: sales and business development manager, renal Discussed with: nurses, consultants, mattress spring encaseroperations manager/coordinator - Objective Last 24 Hour Vital Signs Date Time Temp Pulse Resp B/P (MAP) Pulse Ox O2 Delivery O2 Flow Rate FiO2 12/23/18 18:49 86 19 25 12/23/18 16:42 86 20 25 12/23/18 16:00 Mechanical Ventilator Mechanical Ventilator 12/23/18 16:00 25 12/23/18 16:00 98.6 91 22 147/76 (99) 100 12/23/18 16:00 84 12/23/18 14:37 82 20 25 12/23/18 12:42 98 20 25 12/23/18 12:00 98.4 100 24 161/85 (110) 100 12/23/18 12:00 96 12/23/18 12:00 25 12/23/18 12:00 Mechanical Ventilator Mechanical Ventilator 12/23/18 10:57 106 22 98 Mechanical Ventilator 25 12/23/18 10:49 97 22 99 Mechanical Ventilator 25 12/23/18 10:49 99 20 25 12/23/18 09:29 99.0 12/23/18 08:58 177/77 12/23/18 08:44 98 20 25 12/23/18 08:00 103 12/23/18 08:00 Mechanical Ventilator Mechanical Ventilator 12/23/18 08:00 25 12/23/18 08:00 100.0 112 24 177/77 (110) 100 12/23/18 06:33 99 20 25 12/23/18 05:00 97 20 25 12/23/18 04:00 25 12/23/18 04:00 Mechanical Ventilator Mechanical Ventilator 12/23/18 04:00 98.4 100 26 157/114 (128) 95 12/23/18 03:29 98 20 25 12/23/18 03:00 94 12/23/18 01:00 102 21 25 12/23/18 00:00 98.9 103 20 152/74 (100) 99 12/23/18 00:00 Mechanical Ventilator Mechanical Ventilator 12/22/18 23:40 102 22 98 Mechanical Ventilator 25 12/22/18 23:38 105 12/22/18 23:30 96 22 25 12/22/18 23:30 96 22 97 Mechanical Ventilator 25 12/22/18 21:30 100 20 25 Status: awake Condition: improving HEENT: atraumatic Neck: full ROM Lungs: chest wall tender Heart: HR/BP unstable Abdomen: non-tender, active bowel sounds Extremities: edema Decubiti: location Accucheck: 101 Critical Care - Subjective ROS Limited/Unobtainable: Yes Condition: critical EKG Rhythm: Sinus Rhythm FI02: 25 Vent Support Breath Rate: 16 Vent Support Mode: AC Vent Tidal Volume: 600 Sputum Amount: Moderate PEEP: 0.0 PIP: 26 Tube Feeding Amount: 60 I&O: Intake and Output 12/22/18 12/23/18 19:00 07:00 Intake Total 460 ml 835 ml Output Total 850 ml 1100 ml Balance -390 ml -265 ml Free Water 50 ml 125 ml IV Total 110 ml 110 ml Tube Feeding 300 ml 600 ml Output Urine Total 850 ml 650 ml Stool Total 450 ml CXR: trach intact ET-Tube: 8.0 ET Position: 24 Isaiah Fritz MD Dec 23, 2018 20:18
[2018-12-23] MEDS: Dyna-Hex 2% Top Sol 2oz TOPIC SCH (21:15)
[2018-12-24] VITALS (7 sets, daily range): BP systolic 140–172; BP diastolic 68–94
--- NOTE | 2018-12-24 04:37 | NUR ---
NURSE NOTES: pts SBP >160 (BP 172/65) (Pulse 93)- will administer B/P medication Clonidine as ordered in eMAR- pt. appears to be stable, will continue to monitor pt. with b/p and plan of care.
--- NOTE | 2018-12-24 05:33 | NUR ---
NURSE NOTES: reassessed pts b/p now 150/80- b/p trending down- will continue to monitor pt. and b/p.
[2018-12-24] MEDS: Levothyroxine 25mcg tab ORAL SCH (05:58)
--- NOTE | 2018-12-24 07:02 | NUR ---
HAND-OFF: Report given to Rick RN, pt. stable and no signs of distres noted.
--- NOTE | 2018-12-24 07:03 | NUR ---
NURSE NOTES: RECEIVED PATIENT FROM Milly TORRES RN. PATIENT IS LYING IN BED, NONVERBAL BUT ABLE TO OPEN EYES. HOOKED TO ENROLLED NURSE. TRACH TO VENT. SHILEY 8, VENT SETTINGS AC 16, TV 600, FIO2 25%, PEEP 0. NO SIGNS OF DISTRESS. GT IN PLACE WITH GTF FEEDING JEVITY 1.2 AT 60CC FOR 22HOURS. NOTED RECTAL TUBE AND CHANCE CATHETER. PICC ON L UA, TKO. BED AT LOWEST POSITION, SIDE RAILS UP. CALL LIGHT WITHIN REACH. WILL CONTINUE TO MONITOR.
[2018-12-24] MEDS: Pantoprazole Inj IVP SCH (09:25)
[2018-12-24] MEDS: Heparin 5000 units/ml inj SUBQ SCH ×2 (09:29→20:17)
[2018-12-24] MEDS: Tigecycline 50 MG in NS 110 ML IVPB SCH ×2 (09:39→20:16)
--- NOTE | 2018-12-24 10:38 | NUR ---
RD ASSESSMENT & RECOMMENDATIONS SEE CARE ACTIVITY FOR COMPLETE ASSESSMENT DAILY ESTIMATED NEEDS: Needs based on Critical care, sepsis/ 67kg 22-28 kcals/kg 3272-5272 total kcals 1.2-2 g protein/kg 80-134 g total protein 25-30 mL/kg 3160-8589 total fluid mLs NUTRITION DIAGNOSIS: 1) Swallowing difficulty R/T dysphagia as evidenced by pt is PEG dep, on GT feeding, now s/p trach placement. 2) Altered nutrition related lab values r/t hyperglycemia as evidenced by elev BGs (151, 159-> now improved). CURRENT TF:Jevity 1.2 @ 60ml/hr x 22 hrs ENTERAL NUTRITION RECOMMENDATIONS: Jevity 1.2 @ 60ml/hr x 22 hrs + Prosource 1pkt QD to provide 1320ml, 1584kcal, 73g + 11g prot, 1082ml free water * Add Prosource 1pkt QD to meet protein needs * Hold 1 hour before and after Synthroid med * HOB over 30 degrees/ water flush per MD WITH CONSISTENTLY ELEV BGS, REC TF CHANGE TO GLUCERNA 1.2 : Glucerna 1.2 @ 60ml/hr x 22 hrs + Prosource 1pkt QD -> 1320ml, 1584kcal, 79 +11g prot, 1062ml free water ADDITIONAL RECOMMENDATIONS: * Per SNF, HT=67", QW=056# (from 11/23/18) * Calibrated bedscale wt for accurate CBW * Monitor BGs closely, need for carb controlled TF formula, hypoglycemic agents -> h/o DM * Monitor lytes, need for TF change (h/o elev phos) .
[2018-12-24] MEDS: Colistin for inhalation INH SCH ×2 (10:46→21:45)
--- NOTE | 2018-12-24 11:38 | Infectious Diseases Prog Note ---
Assessment/Plan Assessment/Plan Assessment: Severe Sepsis- likely 2ry to PNA -12/22 CXR: Slightly increased bilateral interstitial and airspace opacities. -CXR: Bilateral diffuse interstitial and airspace infiltrates versus edema, worsening on the right over one day -Bcx NTD -u/a wbc 40-60, nit neg, leuk large; ucx 10-20 k P. mirablis ESBL (S Meropenem, Zosyn) -sp cx 12/20/18 - NF -influenza sc, legionela ag urine neg CT Chest 12/20/18 - Pulmonary infiltrates demonstrated bilaterally with most of airspace disease in the lower lobes right worse than left. Findings may be due to pneumonia. Please correlate clinically. Small bilateral pleural effusions slightly larger on the right. Small airways/reticular densities (tree-in-bud) also demonstrated. Differential diagnosis is large. Findings could certainly be related to bronchopneumonia, especially aspiration. Numerous other possibilities including bronchiolitis, TB , fungal, connective tissue disorders, among others. Fever, improving Leukocytosis stable Acute respiratory failure s/p intubation 12/04 ELICIA, improving COPD DM2 HTN dysphagia s/p G-tube dementia SNF resident Plan: - Continue Tigecycline #12/14 for Acinetobacter - Continue INH Colistin #6/8 - INH colistin #1 D/C 12/13/18 - f/u repeat blood Cx - Consider bronch given CT findings and continued leukocytosis -12/10/18 IV Vancomycin #7 and Meropenem #6 for PNA and UTI -12/10 SP Tamiflu #6 -12/05 AMikacin and Ertapenem #2 -12/07/18 SP empiric Azithromycin #3 -Monitor CBC/CMP, temperatures -aspiration precautions -CBC, CMP am Will continue to follow along with you. Subjective Allergies: Coded Allergies: No Known Allergies (Unverified , 12/04/18) Subjective afebrile >24hrs wbc improved, no cbc today Objective Vital Signs Last 24 Hour Vital Signs Date Time Temp Pulse Resp B/P (MAP) Pulse Ox O2 Delivery O2 Flow Rate FiO2 12/24/18 10:15 100 20 100 Mechanical Ventilator 25 12/24/18 10:00 103 20 100 Mechanical Ventilator 25 12/24/18 09:00 90 22 25 12/24/18 08:00 99.8 82 18 151/94 (113) 100 12/24/18 08:00 81 12/24/18 08:00 Mechanical Ventilator Mechanical Ventilator 12/24/18 08:00 25 12/24/18 06:40 82 20 25 12/24/18 05:34 84 150/80 (103) 12/24/18 04:57 85 18 25 12/24/18 04:42 172/68 12/24/18 04:00 Mechanical Ventilator Mechanical Ventilator 12/24/18 04:00 25 12/24/18 04:00 85 12/24/18 04:00 98.9 93 20 172/68 (102) 100 12/24/18 03:25 83 16 25 12/24/18 01:05 95 23 25 12/24/18 00:00 98.2 89 19 142/78 (99) 100 12/24/18 00:00 25 12/24/18 00:00 87 12/24/18 00:00 Mechanical Ventilator Mechanical Ventilator 12/23/18 22:58 94 21 25 12/23/18 21:33 89 16 100 Mechanical Ventilator 25 12/23/18 21:26 85 17 25 12/23/18 21:25 85 18 100 Mechanical Ventilator 25 12/23/18 20:00 81 12/23/18 20:00 98.2 95 23 148/77 (100) 100 12/23/18 20:00 25 12/23/18 20:00 Mechanical Ventilator Mechanical Ventilator 12/23/18 18:49 86 19 25 12/23/18 16:42 86 20 25 12/23/18 16:00 Mechanical Ventilator Mechanical Ventilator 12/23/18 16:00 25 12/23/18 16:00 98.6 91 22 147/76 (99) 100 12/23/18 16:00 84 12/23/18 14:37 82 20 25 12/23/18 12:42 98 20 25 12/23/18 12:00 98.4 100 24 161/85 (110) 100 12/23/18 12:00 96 12/23/18 12:00 25 12/23/18 12:00 Mechanical Ventilator Mechanical Ventilator Height (Feet): 5 Height (Inches): 6.00 Weight (Pounds): 156 Objective Status: awake Condition: critical HEENT: atraumatic Neck: full ROM Lungs: clear Heart: HR/BP stable Abdomen: soft, active bowel sounds Extremities: no C/C/E Decubiti: location Current Medications Medications (Trade) Dose Ordered Sig/Courtney Route PRN Reason Start Time Stop Time Status Last Admin Dose Admin Acetaminophen (Tylenol) 650 mg Q4H PRN ORAL fever 12/21/18 16:41 01/03/19 16:40 12/24/18 09:26 Chlorhexidine Gluconate (Amna-Hex 2%) 1 applic DAILY@2000 TOPIC 12/21/18 20:00 01/12/19 19:59 12/23/18 21:15 Clonidine HCl (Catapres Tab) 0.1 mg Q6H PRN GT for SBP >160 12/23/18 08:30 01/22/19 08:29 12/24/18 04:42 Colistimethate Sodium (Colistin *inhalation use only*) 150 mg Q12HR@10,22 INH 12/21/18 22:00 12/26/18 23:59 12/24/18 10:46 Heparin Sodium (Porcine) (Heparin 5000 units/ml) 5,000 units EVERY 12 HOURS SUBQ 12/21/18 21:00 01/03/19 20:59 12/24/18 09:29 Levothyroxine Sodium (Synthroid) 25 mcg DAILY@0630 ORAL 12/22/18 06:30 01/08/19 06:29 12/24/18 05:58 Pantoprazole (Protonix) 40 mg DAILY IVP 12/22/18 09:00 01/04/19 08:59 12/24/18 09:25 Tigecycline 50 mg/ Sodium Chloride 110 ml @ 220 mls/hr EVERY 12 HOURS IVPB 12/21/18 21:00 01/01/19 20:59 12/24/18 09:39 Jazz Alexander M.D. Dec 24, 2018 11:38
--- NOTE | 2018-12-24 12:08 | Pulmonolgy Critical Care Note ---
Critical Care - Asmt/Plan Problems: (1) Acute respiratory failure (2) Septic shock (3) Feeding by G-tube (4) ATN (acute tubular necrosis) (5) Diabetes mellitus, type II (6) COPD (chronic obstructive pulmonary disease) (7) History of hypertension (8) Hypothyroidism Respiratory: monitor respiratory rate, adjust FIO2, CXR Cardiac: continue to monitor HR/BP Renal: F/U I&O, keep IV fluid, check electrolytes Infectious Disease: check cultures Gastrointestinal: continue feedings/current rate Endocrine: monitor blood sugar, check TSH Hematologic: monitor H/H, transfuse if hgb<8.5 Neurologic: PRN Morphine, keep patient comfortable Affect: PRN ativan Prophylaxis: Protonix Notes Reviewed: machine operator hop picker, renal Discussed with: nurses, consultants, case finishing machine adjusterinside channel account manager - Objective Last 24 Hour Vital Signs Date Time Temp Pulse Resp B/P (MAP) Pulse Ox O2 Delivery O2 Flow Rate FiO2 12/24/18 11:15 75 16 25 12/24/18 10:15 100 20 100 Mechanical Ventilator 25 12/24/18 10:00 103 20 100 Mechanical Ventilator 25 12/24/18 09:00 90 22 25 12/24/18 08:00 99.8 82 18 151/94 (113) 100 12/24/18 08:00 81 12/24/18 08:00 Mechanical Ventilator Mechanical Ventilator 12/24/18 08:00 25 12/24/18 06:40 82 20 25 12/24/18 05:34 84 150/80 (103) 12/24/18 04:57 85 18 25 12/24/18 04:42 172/68 12/24/18 04:00 Mechanical Ventilator Mechanical Ventilator 12/24/18 04:00 25 12/24/18 04:00 85 12/24/18 04:00 98.9 93 20 172/68 (102) 100 12/24/18 03:25 83 16 25 12/24/18 01:05 95 23 25 12/24/18 00:00 98.2 89 19 142/78 (99) 100 12/24/18 00:00 25 12/24/18 00:00 87 12/24/18 00:00 Mechanical Ventilator Mechanical Ventilator 12/23/18 22:58 94 21 25 12/23/18 21:33 89 16 100 Mechanical Ventilator 25 12/23/18 21:26 85 17 25 12/23/18 21:25 85 18 100 Mechanical Ventilator 25 12/23/18 20:00 81 12/23/18 20:00 98.2 95 23 148/77 (100) 100 12/23/18 20:00 25 12/23/18 20:00 Mechanical Ventilator Mechanical Ventilator 12/23/18 18:49 86 19 25 12/23/18 16:42 86 20 25 12/23/18 16:00 Mechanical Ventilator Mechanical Ventilator 12/23/18 16:00 25 12/23/18 16:00 98.6 91 22 147/76 (99) 100 12/23/18 16:00 84 12/23/18 14:37 82 20 25 12/23/18 12:42 98 20 25 Status: awake Condition: critical Neck: full ROM Heart: HR/BP stable, HR/BP unstable Abdomen: active bowel sounds Extremities: no C/C/E Decubiti: location Accucheck: 101 Critical Care - Subjective ROS Limited/Unobtainable: Yes FI02: 25 Vent Support Breath Rate: 16 Vent Support Mode: AC Vent Tidal Volume: 600 Sputum Amount: Small PEEP: 0.0 PIP: 18 I&O: Intake and Output 12/23/18 12/24/18 18:59 06:59 Intake Total 1070 ml 1005 ml Output Total 700 ml 725 ml Balance 370 ml 280 ml Free Water 250 ml 125 ml IV Total 220 ml 220 ml Tube Feeding 600 ml 660 ml Output Urine Total 700 ml 650 ml Stool Total 75 ml CXR: no change ET-Tube: 8.0 ET Position: 24 Isaiah Fritz MD Dec 24, 2018 12:08
--- NOTE | 2018-12-24 14:11 | Cardiac Electrophysiology PN ---
Assessment/Plan Assessment/Plan 1. CHF with elevated BNP due to diastolic dysfunction EF 55%. 2. Respiratory failure on the ventilator and IV antibiotic per ID and Dr. Fritz. S/P Tracheostomy 12/20/18 3. Hypertension. On prn Clonidine 4. Severe sepsis, likely due to pneumonia 5. Diabetes 6. Dysphagia, status post PEG placement. 7. Azotemia, DW RN Subjective Subjective On the vent via Tracheostomy. BP running high. More alert and responsive Objective Last 24 Hour Vital Signs Date Time Temp Pulse Resp B/P (MAP) Pulse Ox O2 Delivery O2 Flow Rate FiO2 12/24/18 13:00 78 22 25 12/24/18 11:15 75 16 25 12/24/18 10:15 100 20 100 Mechanical Ventilator 25 12/24/18 10:00 103 20 100 Mechanical Ventilator 25 12/24/18 09:56 99.4 12/24/18 09:00 90 22 25 12/24/18 08:00 99.8 82 18 151/94 (113) 100 12/24/18 08:00 81 12/24/18 08:00 Mechanical Ventilator Mechanical Ventilator 12/24/18 08:00 25 12/24/18 06:40 82 20 25 12/24/18 05:34 84 150/80 (103) 12/24/18 04:57 85 18 25 12/24/18 04:42 172/68 12/24/18 04:00 Mechanical Ventilator Mechanical Ventilator 12/24/18 04:00 25 12/24/18 04:00 85 12/24/18 04:00 98.9 93 20 172/68 (102) 100 12/24/18 03:25 83 16 25 12/24/18 01:05 95 23 25 12/24/18 00:00 98.2 89 19 142/78 (99) 100 12/24/18 00:00 25 12/24/18 00:00 87 12/24/18 00:00 Mechanical Ventilator Mechanical Ventilator 12/23/18 22:58 94 21 25 12/23/18 21:33 89 16 100 Mechanical Ventilator 25 12/23/18 21:26 85 17 25 12/23/18 21:25 85 18 100 Mechanical Ventilator 25 12/23/18 20:00 81 12/23/18 20:00 98.2 95 23 148/77 (100) 100 12/23/18 20:00 25 12/23/18 20:00 Mechanical Ventilator Mechanical Ventilator 12/23/18 18:49 86 19 25 12/23/18 16:42 86 20 25 12/23/18 16:00 Mechanical Ventilator Mechanical Ventilator 12/23/18 16:00 25 12/23/18 16:00 98.6 91 22 147/76 (99) 100 12/23/18 16:00 84 12/23/18 14:37 82 20 25 Intake and Output 12/23/18 12/24/18 18:59 06:59 Intake Total 1070 ml 1005 ml Output Total 700 ml 725 ml Balance 370 ml 280 ml Free Water 250 ml 125 ml IV Total 220 ml 220 ml Tube Feeding 600 ml 660 ml Output Urine Total 700 ml 650 ml Stool Total 75 ml Objective HEAD AND NECK: Tracheostomy in place. LUNGS: Coarse rhonchi. CARDIOVASCULAR: Regular S1 and S2 and mildly tachycardic. ABDOMEN: Status post G-tube. EXTREMITIES: No pitting edema. Darrell Cevallos MD Dec 24, 2018 14:11
--- NOTE | 2018-12-24 15:00 | NUR ---
HAND-OFF: Report given to DARIANA Hester .
--- NOTE | 2018-12-24 16:00 | NUR ---
received pt. awake,alert ,follow comand no distress observed tolerate vent well
--- NOTE | 2018-12-24 18:51 | NUR ---
RESPIRATORY NOTE: Patient received mechanically ventilated on PB 840 with current ordered vent settings. Patient has trach size 8.0 Shiley cuffed that is secured with trach tie and guard. There are bilateral coarse breath sounds present upon auscultation. Moderate amount of thin/frothy white secretions were suctioned via inline suction system without incident. There is an ambu bag available at the bedside and the vent is connected to a red outlet. Vent alarms are functional and audible. Patient appears comfortable at this time. Will continue to monitor.
--- NOTE | 2018-12-24 19:00 | Internal Med Progress Note ---
Subjective Date of Service: Dec 24, 2018 Physician Name Roni Carson Attending Physician Isaiah Fritz MD Current Medications Medications (Trade) Dose Ordered Sig/Courtney Route PRN Reason Start Time Stop Time Status Last Admin Dose Admin Acetaminophen (Tylenol) 650 mg Q4H PRN ORAL fever 12/21/18 16:41 01/03/19 16:40 12/24/18 09:26 Chlorhexidine Gluconate (Amna-Hex 2%) 1 applic DAILY@2000 TOPIC 12/21/18 20:00 01/12/19 19:59 12/23/18 21:15 Clonidine HCl (Catapres Tab) 0.1 mg Q6H PRN GT for SBP >160 12/23/18 08:30 01/22/19 08:29 12/24/18 04:42 Colistimethate Sodium (Colistin *inhalation use only*) 150 mg Q12HR@10,22 INH 12/21/18 22:00 12/26/18 23:59 12/24/18 10:46 Heparin Sodium (Porcine) (Heparin 5000 units/ml) 5,000 units EVERY 12 HOURS SUBQ 12/21/18 21:00 01/03/19 20:59 12/24/18 09:29 Lansoprazole (Prevacid) 30 mg DAILY GT 12/25/18 09:00 01/24/19 08:59 Levothyroxine Sodium (Synthroid) 25 mcg DAILY@0630 ORAL 12/22/18 06:30 01/08/19 06:29 12/24/18 05:58 Tigecycline 50 mg/ Sodium Chloride 110 ml @ 220 mls/hr EVERY 12 HOURS IVPB 12/21/18 21:00 01/01/19 20:59 12/24/18 09:39 Allergies: Coded Allergies: No Known Allergies (Unverified , 12/04/18) Subjective 73 YO M admitted with respiratory failure. Now pneumonia. S/P tracheostomy 12/20. [facility] vent. NANDO. Cover for Int Garret-Dr Matthews Objective Last Vital Signs Date Time Temp Pulse Resp B/P (MAP) Pulse Ox O2 Delivery O2 Flow Rate FiO2 12/24/18 17:05 92 20 25 12/24/18 16:00 Mechanical Ventilator Mechanical Ventilator 12/24/18 12:00 99.4 157/69 (98) 100 Intake and Output 12/23/18 12/24/18 19:00 07:00 Intake Total 1130 ml 945 ml Output Total 700 ml 725 ml Balance 430 ml 220 ml Free Water 250 ml 125 ml IV Total 220 ml 220 ml Tube Feeding 660 ml 600 ml Output Urine Total 700 ml 650 ml Stool Total 75 ml Objective General Appearance: WD/WN, no apparent distress, lethargic EENT: PERRL/EOMI, normal ENT inspection Neck: non-tender, normal alignment, supple, normal inspection Cardiovascular: normal peripheral pulses, normal rate, regular rhythm, no gallop/murmur, no JVD Respiratory/Chest: Mech vent; chest wall non-tender, respiratory distress, crackles/rales, rhonchi - bilaterally, expiratory wheezing Abdomen: normal bowel sounds, non tender, soft, no organomegaly, no mass Extremities: normal range of motion, non-tender Skin: normal pigmentation, warm/dry Assessment/Plan Problem List: (1) Pneumonia Assessment & Plan: Acenitobacter. See ID note. Continue tegacycline (2) Anemia Assessment & Plan: S/P tansfusion 2 units PRBC 12/05/18. (3) Elevated troponin Assessment & Plan: See cardiology consult. (4) COPD (chronic obstructive pulmonary disease) (5) HTN (hypertension) Assessment & Plan: Currently on levophed (6) CHF (congestive heart failure) Assessment & Plan: LVEF=55-60% (7) Diabetes mellitus, type II (8) Chronic renal failure Assessment & Plan: See nephrology note. (9) Dysphagia (10) CAD (coronary artery disease) (11) Acute respiratory failure Assessment & Plan: Continue mech vent per pulm. S/P tracheostomy 12/20/18 (12) Hypothyroidism Status: progressing Roni Carson MD Dec 24, 2018 19:00
--- NOTE | 2018-12-24 19:06 | NUR ---
NURSE NOTES: Report received from DARIANA Hester. Patient seen in bed in caraballo position. Alert, responsive, able to make needs known and nod or shake his head. Denies any pain at this time. Patient is on Vent with setting of Shiley 8, AC 16, TV 600, Fi02 25%, PEEP 5. Spo2 is 99%. Noted with yeung cath and rectal tube. both is intact. GTF os jevity 1.2 is @60CC/hr, patient tolerating feeding well. PICC line to left upper arm is intact. Bed is in lowest position. Call light is within easy reach when in bed, Will continue to monitor.
--- NOTE | 2018-12-24 20:04 | NUR ---
report given to lucrecia gates
[2018-12-24] MEDS: Dyna-Hex 2% Top Sol 2oz TOPIC SCH (20:15)
--- NOTE | 2018-12-24 23:09 | NUR ---
HAND-OFF: Report given to Cleo Hernandez RN.
--- NOTE | 2018-12-24 23:10 | NUR ---
NURSE NOTES: Received bedside report from DARIANA Hsu.Patient stable,no s/s of pain,no respiratory distress noted,SR on environmental monitoring specialist,pt nonverbal d/t trach inserted 12/20/18,A&Ox2,tolerated settings well Shiley 8 AC 16 TV 600 FiO2 25% no PEEP,GT in place running with Jevity 1.2 @ 60 ml/hr for 22 hrs d/t Synthroid,flush 125ml every shift,BS active in all quadrants,rectal tube in place,f/cath for retention running toward gravity,IV on BRADLEY PICC TKO dressing changed on 12/22/18,bed secured in a low safety position,call light within a reach.Will continue to monitor and follow POC.
[2018-12-25] VITALS: BP 139/73
[2018-12-25 04:00] VITALS: BP 131/79
[2018-12-25 05:53] LABS: HEMOGLOBIN 7.8 G/DL (14.2-18.0); MEAN CORPUSCULAR VOLUME 81 FL (80-99); PLATELET COUNT 277 K/UL (150-450); RED BLOOD COUNT 3.09 M/UL (4.70-6.10); RED CELL DISTRIBUTION WIDTH 19.5 % (11.6-14.8); WHITE BLOOD COUNT 11.6 K/UL (4.8-10.8)
[2018-12-25] MEDS: Levothyroxine 25mcg tab ORAL SCH (06:15)
[2018-12-25 06:29] LABS: ALANINE AMINOTRANSFERASE 24 U/L (12-78); ALBUMIN 1.6 G/DL (3.4-5.0); ALBUMIN/GLOBULIN RATIO 0.2 (1.0-2.7); ALKALINE PHOSPHATASE 145 U/L (46-116); ANION GAP 11 mmol/L (5-15); ASPARTATE AMINO TRANSFERASE 27 U/L (15-37); BILIRUBIN,TOTAL 0.4 MG/DL (0.2-1.0); BLOOD UREA NITROGEN 35 mg/dL (7-18); CALCIUM 8.1 MG/DL (8.5-10.1); CARBON DIOXIDE 22 MMOL/L (21-32); CHLORIDE 112 MMOL/L (98-107); CREATININE 1.1 MG/DL (0.55-1.30); POTASSIUM 4.4 MMOL/L (3.5-5.1); SODIUM 145 MMOL/L (136-145)
--- NOTE | 2018-12-25 06:39 | NUR ---
NURSE NOTES: notified regarding Hgb level 7.8.Charge nurse aware
--- NOTE | 2018-12-25 06:45 | NUR ---
NURSE NOTES: Received an order from Dr Fritz to transfused 1 unit of PRBC.
--- NOTE | 2018-12-25 07:23 | NUR ---
HAND-OFF: Report given to DARIANA Martinez.Patient stable.
--- NOTE | 2018-12-25 07:23 | NUR ---
NURSE NOTES: Received patient from DARIANA Freitas. Patient VS stable at this time with no sign of acute distress. Patient is alert and oriented times 1-2. Patient showing Sinus rhythm on the monitor at this time. Patient has trach to ventilator that is patent and asymptomatic at this time. Patient is on trach to ventilator setting of AC 16, TV 600, FiO2 25%, and PEEP 0. Patient has a G-tube that is patent and asymptomatic at this time. Patient is running Jevity 1.2 at 60mL/hr at this time. Patient has no residual at this time. Patient has sacral excoriation reportedly and it is covered with an optifoam dressing. Will monitor and turn patient every 2 hours. Patient has a left upper arm PICC that is patent and saline locked at this time. Patient has a rectal tube. C. diff culture was done and is negative at this time. Patient has low Hgb of 7.8 at this time. Patient is to receive one PRBC this morning. Order has been placed. Waiting for blood bank to report that the blood is ready at this time.
[2018-12-25 08:00] VITALS: BP 148/82
[2018-12-25] MEDS: Tigecycline 50 MG in NS 110 ML IVPB SCH ×2 (09:18→19:58)
[2018-12-25] MEDS: Heparin 5000 units/ml inj SUBQ SCH ×2 (09:23→20:01)
[2018-12-25] MEDS: Colistin for inhalation INH SCH ×2 (09:45→22:11)
--- NOTE | 2018-12-25 09:53 | NUR ---
RADIOLOGY DEPT CHEST X-RAY DONE.-P.DYE
--- NOTE | 2018-12-25 10:57 | Pulmonolgy Critical Care Note ---
Critical Care - Asmt/Plan Problems: (1) Acute respiratory failure (2) Septic shock (3) Feeding by G-tube (4) ATN (acute tubular necrosis) (5) Diabetes mellitus, type II (6) COPD (chronic obstructive pulmonary disease) (7) History of hypertension (8) Hypothyroidism Respiratory: monitor respiratory rate, adjust FIO2, CXR Cardiac: continue to monitor HR/BP Renal: F/U I&O, keep IV fluid, check electrolytes Infectious Disease: check cultures Gastrointestinal: continue feedings/current rate Endocrine: monitor blood sugar Hematologic: monitor H/H, transfuse if hgb<8.5 Neurologic: PRN Ativan, PRN Morphine, keep patient comfortable Affect: PRN ativan Prophylaxis: Protonix Time Spent (Minutes): 40 Notes Reviewed: skilled laborer, cardio, renal Discussed with: nurses, consultants, case manager specialistfinancial aid manager - Objective Last 24 Hour Vital Signs Date Time Temp Pulse Resp B/P (MAP) Pulse Ox O2 Delivery O2 Flow Rate FiO2 12/25/18 10:01 99 20 100 Mechanical Ventilator 25 12/25/18 09:47 99 20 100 Mechanical Ventilator 25 12/25/18 09:30 91 20 25 12/25/18 08:00 99.4 86 19 148/82 (104) 99 12/25/18 08:00 25 12/25/18 08:00 Mechanical Ventilator Mechanical Ventilator Mechanical Ventilator 12/25/18 08:00 89 12/25/18 07:00 75 21 25 12/25/18 04:50 84 24 25 12/25/18 04:00 Mechanical Ventilator Mechanical Ventilator Mechanical Ventilator 12/25/18 04:00 25 12/25/18 04:00 87 12/25/18 04:00 98.4 95 20 131/79 (96) 97 12/25/18 02:58 78 22 25 12/25/18 00:47 86 24 25 12/25/18 00:00 25 12/25/18 00:00 Mechanical Ventilator Mechanical Ventilator Mechanical Ventilator 12/25/18 00:00 98.7 92 22 139/73 (95) 100 12/24/18 23:21 91 12/24/18 23:13 98 24 25 12/24/18 21:55 195 22 100 Mechanical Ventilator 25 12/24/18 21:45 96 24 100 Mechanical Ventilator 25 12/24/18 21:29 96 24 25 12/24/18 20:00 25 12/24/18 20:00 90 12/24/18 20:00 99.5 90 24 150/76 (100) 100 12/24/18 20:00 Mechanical Ventilator Mechanical Ventilator 12/24/18 18:45 89 26 25 12/24/18 17:05 92 20 25 12/24/18 16:00 99.1 74 18 140/74 (96) 100 12/24/18 16:00 84 12/24/18 16:00 25 12/24/18 16:00 Mechanical Ventilator Mechanical Ventilator 12/24/18 14:31 90 21 25 12/24/18 13:00 78 22 25 12/24/18 12:00 25 12/24/18 12:00 Mechanical Ventilator Mechanical Ventilator 12/24/18 12:00 99.4 79 18 157/69 (98) 100 12/24/18 12:00 77 12/24/18 11:15 75 16 25 Status: awake Condition: improving HEENT: atraumatic Neck: full ROM Lungs: rales, rhonchi Heart: HR/BP stable Abdomen: soft Extremities: no C/C/E Decubiti: location, stage Micro: Microbiology Date/Time Source Procedure Growth Status 12/23/18 09:45 Blood Blood Culture - Preliminary NO GROWTH AFTER 24 HOURS Resulted 12/23/18 09:35 Blood Blood Culture - Preliminary NO GROWTH AFTER 24 HOURS Resulted Accucheck: 101 Critical Care - Subjective ROS Limited/Unobtainable: Yes Interval Events: wbc lower, cxr better Condition: critical, improving FI02: 25 Vent Support Breath Rate: 16 Vent Support Mode: AC Vent Tidal Volume: 600 Sputum Amount: Moderate PEEP: 0.0 PIP: 23 Tube Feeding Amount: 60 I&O: Intake and Output 12/24/18 12/25/18 19:00 07:00 Intake Total 945 ml 725 ml Output Total 550 ml 1250 ml Balance 395 ml -525 ml Free Water 125 ml 125 ml IV Total 220 ml Tube Feeding 600 ml 600 ml Output Urine Total 550 ml 1000 ml Stool Total 250 ml # Bowel Movements 100 CXR: trach intact, less infiltrate ET-Tube: 8.0 ET Position: 24 Isaiah Fritz MD Dec 25, 2018 10:57
--- NOTE | 2018-12-25 11:43 | NUR ---
NURSE NOTES: Followed up with lab regarding PRBC ordered this morning. It is in process at this time but not yet available. Patient is stable at this time with no sign of acute distress.
[2018-12-25 12:00] VITALS: BP 133/69
--- NOTE | 2018-12-25 12:28 | Diagnostic Imaging Report ---
Indication: Dyspnea Technique: One view of the chest Comparison: 12/22/2018 Findings: Interim improvement in previously demonstrated bilateral infiltrates versus edema, with some residual in the perihilar regions. Tracheostomy, left arm PICC remain Impression: Improved but persistent bilateral perihilar infiltrates versus edema, over 3 days
--- NOTE | 2018-12-25 13:23 | NUR ---
NURSE NOTES: 1 PRBC started at this time. Patient BP 140/64, temp 97.9, oxygen saturation 100%, and HR 84 at this time.
--- NOTE | 2018-12-25 13:39 | NUR ---
NURSE NOTES: Patient has been running PRBC for 15 min. Patient VS stable with no sign of acute distress. Patient BP 145/70, HR 89, temp 98.4, and oxygen saturation 100%.
--- NOTE | 2018-12-25 15:38 | Cardiac Electrophysiology PN ---
Assessment/Plan Assessment/Plan 1. CHF with elevated BNP due to diastolic dysfunction EF 55%. 2. Respiratory failure on the ventilator via tracheostomy and IV antibiotic per ID and Dr. Fritz. S/P Tracheostomy 12/20/18 3. Hypertension. On prn Clonidine 4. Severe sepsis, likely due to pneumonia 5. Diabetes 6. Dysphagia, status post PEG placement. 7. Azotemia, DW RN Subjective Subjective On the vent via Tracheostomy. Alert and responsive. Just disconnected himself from the vent but RN reconnected him to vent Objective Last 24 Hour Vital Signs Date Time Temp Pulse Resp B/P (MAP) Pulse Ox O2 Delivery O2 Flow Rate FiO2 12/25/18 14:52 90 22 25 12/25/18 12:35 93 20 25 12/25/18 12:00 25 12/25/18 12:00 99.2 84 16 133/69 (90) 100 12/25/18 12:00 Mechanical Ventilator Mechanical Ventilator Mechanical Ventilator 12/25/18 10:30 88 20 25 12/25/18 10:01 99 20 100 Mechanical Ventilator 25 12/25/18 09:47 99 20 100 Mechanical Ventilator 25 12/25/18 09:30 91 20 25 12/25/18 08:00 99.4 86 19 148/82 (104) 99 12/25/18 08:00 25 12/25/18 08:00 Mechanical Ventilator Mechanical Ventilator Mechanical Ventilator 12/25/18 08:00 89 12/25/18 07:00 75 21 25 12/25/18 04:50 84 24 25 12/25/18 04:00 Mechanical Ventilator Mechanical Ventilator Mechanical Ventilator 12/25/18 04:00 25 12/25/18 04:00 87 12/25/18 04:00 98.4 95 20 131/79 (96) 97 12/25/18 02:58 78 22 25 12/25/18 00:47 86 24 25 12/25/18 00:00 25 12/25/18 00:00 Mechanical Ventilator Mechanical Ventilator Mechanical Ventilator 12/25/18 00:00 98.7 92 22 139/73 (95) 100 12/24/18 23:21 91 12/24/18 23:13 98 24 25 12/24/18 21:55 195 22 100 Mechanical Ventilator 25 12/24/18 21:45 96 24 100 Mechanical Ventilator 25 12/24/18 21:29 96 24 25 12/24/18 20:00 25 12/24/18 20:00 90 12/24/18 20:00 99.5 90 24 150/76 (100) 100 12/24/18 20:00 Mechanical Ventilator Mechanical Ventilator 12/24/18 18:45 89 26 25 12/24/18 17:05 92 20 25 12/24/18 16:00 99.1 74 18 140/74 (96) 100 12/24/18 16:00 84 12/24/18 16:00 25 12/24/18 16:00 Mechanical Ventilator Mechanical Ventilator Intake and Output 12/24/18 12/25/18 18:59 06:59 Intake Total 885 ml 785 ml Output Total 550 ml 1250 ml Balance 335 ml -465 ml Free Water 125 ml 125 ml IV Total 220 ml Tube Feeding 540 ml 660 ml Output Urine Total 550 ml 1000 ml Stool Total 250 ml # Bowel Movements 100 Laboratory Tests Test 12/25/18 04:35 White Blood Count 11.6 K/UL (4.8-10.8) H Red Blood Count 3.09 M/UL (4.70-6.10) L Hemoglobin 7.8 G/DL (14.2-18.0) L Hematocrit 25.0 % (42.0-52.0) L Mean Corpuscular Volume 81 FL (80-99) Mean Corpuscular Hemoglobin 25.4 PG (27.0-31.0) L Mean Corpuscular Hemoglobin Concent 31.4 G/DL (32.0-36.0) L Red Cell Distribution Width 19.5 % (11.6-14.8) H Platelet Count 277 K/UL (150-450) Mean Platelet Volume 8.6 FL (6.5-10.1) Neutrophils (%) (Auto) % (45.0-75.0) Lymphocytes (%) (Auto) % (20.0-45.0) Monocytes (%) (Auto) % (1.0-10.0) Eosinophils (%) (Auto) % (0.0-3.0) Basophils (%) (Auto) % (0.0-2.0) Differential Total Cells Counted 100 Neutrophils % (Manual) 81 % (45-75) H Lymphocytes % (Manual) 13 % (20-45) L Monocytes % (Manual) 2 % (1-10) Eosinophils % (Manual) 4 % (0-3) H Basophils % (Manual) 0 % (0-2) Band Neutrophils 0 % (0-8) Platelet Estimate Adequate Platelet Morphology Normal Hypochromasia 2+ Anisocytosis 2+ Microcytosis 1+ Sodium Level 145 MMOL/L (136-145) Potassium Level 4.4 MMOL/L (3.5-5.1) Chloride Level 112 MMOL/L (98-107) H Carbon Dioxide Level 22 MMOL/L (21-32) Anion Gap 11 mmol/L (5-15) Blood Urea Nitrogen 35 mg/dL (7-18) H Creatinine 1.1 MG/DL (0.55-1.30) Estimat Glomerular Filtration Rate mL/min (>60) Glucose Level 83 MG/DL (74-106) Calcium Level 8.1 MG/DL (8.5-10.1) L Total Bilirubin 0.4 MG/DL (0.2-1.0) Aspartate Amino Transf (AST/SGOT) 27 U/L (15-37) Alanine Aminotransferase (ALT/SGPT) 24 U/L (12-78) Alkaline Phosphatase 145 U/L (46-116) H Pro-B-Type Natriuretic Peptide 143 pg/mL (0-125) H Total Protein 8.0 G/DL (6.4-8.2) Albumin 1.6 G/DL (3.4-5.0) L Globulin 6.4 g/dL Albumin/Globulin Ratio 0.2 (1.0-2.7) L Microbiology Date/Time Source Procedure Growth Status 12/23/18 09:45 Blood Blood Culture - Preliminary NO GROWTH AFTER 24 HOURS Resulted 12/23/18 09:35 Blood Blood Culture - Preliminary NO GROWTH AFTER 24 HOURS Resulted Objective HEAD AND NECK: Tracheostomy in place. LUNGS: Coarse rhonchi. CARDIOVASCULAR: Regular S1 and S2 and mildly tachycardic. ABDOMEN: Status post G-tube. EXTREMITIES: No pitting edema. Darrell Cevallos MD Dec 25, 2018 15:38
--- NOTE | 2018-12-25 15:40 | NUR ---
HAND-OFF: Report given to Rich WESTBROOK. Patient VS stable at this time with no sign of acute distress. Patient is finishing blood transfusion of one PRBC at this time. Endorsed to follow up.
--- NOTE | 2018-12-25 15:44 | Infectious Diseases Prog Note ---
Assessment/Plan Assessment/Plan Assessment: Severe Sepsis; improvnig- likely 2ry to PNA -12/25 CXR: Improved but persistent bilateral perihilar infiltrates versus edema, over 3 days -12/22 CXR: Slightly increased bilateral interstitial and airspace opacities. -CXR: Bilateral diffuse interstitial and airspace infiltrates versus edema, worsening on the right over one day -Bcx NTD -u/a wbc 40-60, nit neg, leuk large; ucx 10-20 k P. mirablis ESBL (S Meropenem, Zosyn) -sp cx 12/20/18 - NF -influenza sc, legionela ag urine neg CT Chest 12/20/18 - Pulmonary infiltrates demonstrated bilaterally with most of airspace disease in the lower lobes right worse than left. Findings may be due to pneumonia. Please correlate clinically. Small bilateral pleural effusions slightly larger on the right. Small airways/reticular densities (tree-in-bud) also demonstrated. Differential diagnosis is large. Findings could certainly be related to bronchopneumonia, especially aspiration. Numerous other possibilities including bronchiolitis, TB , fungal, connective tissue disorders, among others. Fever, improving Leukocytosis, improving Acute respiratory failure s/p intubation 12/04 ELICIA, SP COPD DM2 HTN dysphagia s/p G-tube dementia SNF resident Plan: - Continue Tigecycline #13/14 for Acinetobacter - Continue INH Colistin #7/8 - INH colistin #1 D/C 12/13/18 - f/u repeat blood Cx -12/10/18 IV Vancomycin #7 and Meropenem #6 for PNA and UTI -12/10 SP Tamiflu #6 -12/05 AMikacin and Ertapenem #2 -12/07/18 SP empiric Azithromycin #3 -Monitor CBC/CMP, temperatures -aspiration precautions Will continue to follow along with you. Subjective Allergies: Coded Allergies: No Known Allergies (Unverified , 12/04/18) Subjective afebrile >48hrs wbc improving CXR improved Objective Vital Signs Last 24 Hour Vital Signs Date Time Temp Pulse Resp B/P (MAP) Pulse Ox O2 Delivery O2 Flow Rate FiO2 12/25/18 14:52 90 22 25 12/25/18 12:35 93 20 25 12/25/18 12:00 25 12/25/18 12:00 99.2 84 16 133/69 (90) 100 12/25/18 12:00 Mechanical Ventilator Mechanical Ventilator Mechanical Ventilator 12/25/18 10:30 88 20 25 12/25/18 10:01 99 20 100 Mechanical Ventilator 25 12/25/18 09:47 99 20 100 Mechanical Ventilator 25 12/25/18 09:30 91 20 25 12/25/18 08:00 99.4 86 19 148/82 (104) 99 12/25/18 08:00 25 12/25/18 08:00 Mechanical Ventilator Mechanical Ventilator Mechanical Ventilator 12/25/18 08:00 89 12/25/18 07:00 75 21 25 12/25/18 04:50 84 24 25 12/25/18 04:00 Mechanical Ventilator Mechanical Ventilator Mechanical Ventilator 12/25/18 04:00 25 12/25/18 04:00 87 12/25/18 04:00 98.4 95 20 131/79 (96) 97 12/25/18 02:58 78 22 25 12/25/18 00:47 86 24 25 12/25/18 00:00 25 12/25/18 00:00 Mechanical Ventilator Mechanical Ventilator Mechanical Ventilator 12/25/18 00:00 98.7 92 22 139/73 (95) 100 12/24/18 23:21 91 12/24/18 23:13 98 24 25 12/24/18 21:55 195 22 100 Mechanical Ventilator 25 12/24/18 21:45 96 24 100 Mechanical Ventilator 25 12/24/18 21:29 96 24 25 12/24/18 20:00 25 12/24/18 20:00 90 12/24/18 20:00 99.5 90 24 150/76 (100) 100 12/24/18 20:00 Mechanical Ventilator Mechanical Ventilator 12/24/18 18:45 89 26 25 12/24/18 17:05 92 20 25 12/24/18 16:00 99.1 74 18 140/74 (96) 100 12/24/18 16:00 84 12/24/18 16:00 25 12/24/18 16:00 Mechanical Ventilator Mechanical Ventilator Height (Feet): 5 Height (Inches): 6.00 Weight (Pounds): 153 Objective Status: awake Condition: critical HEENT: atraumatic Neck: full ROM Lungs: clear Heart: HR/BP stable Abdomen: soft, active bowel sounds Extremities: no C/C/E Decubiti: location Microbiology Date/Time Source Procedure Growth Status 12/23/18 09:45 Blood Blood Culture - Preliminary NO GROWTH AFTER 24 HOURS Resulted 12/23/18 09:35 Blood Blood Culture - Preliminary NO GROWTH AFTER 24 HOURS Resulted Laboratory Tests Test 12/25/18 04:35 White Blood Count 11.6 K/UL (4.8-10.8) H Red Blood Count 3.09 M/UL (4.70-6.10) L Hemoglobin 7.8 G/DL (14.2-18.0) L Hematocrit 25.0 % (42.0-52.0) L Mean Corpuscular Volume 81 FL (80-99) Mean Corpuscular Hemoglobin 25.4 PG (27.0-31.0) L Mean Corpuscular Hemoglobin Concent 31.4 G/DL (32.0-36.0) L Red Cell Distribution Width 19.5 % (11.6-14.8) H Platelet Count 277 K/UL (150-450) Mean Platelet Volume 8.6 FL (6.5-10.1) Neutrophils (%) (Auto) % (45.0-75.0) Lymphocytes (%) (Auto) % (20.0-45.0) Monocytes (%) (Auto) % (1.0-10.0) Eosinophils (%) (Auto) % (0.0-3.0) Basophils (%) (Auto) % (0.0-2.0) Differential Total Cells Counted 100 Neutrophils % (Manual) 81 % (45-75) H Lymphocytes % (Manual) 13 % (20-45) L Monocytes % (Manual) 2 % (1-10) Eosinophils % (Manual) 4 % (0-3) H Basophils % (Manual) 0 % (0-2) Band Neutrophils 0 % (0-8) Platelet Estimate Adequate Platelet Morphology Normal Hypochromasia 2+ Anisocytosis 2+ Microcytosis 1+ Sodium Level 145 MMOL/L (136-145) Potassium Level 4.4 MMOL/L (3.5-5.1) Chloride Level 112 MMOL/L (98-107) H Carbon Dioxide Level 22 MMOL/L (21-32) Anion Gap 11 mmol/L (5-15) Blood Urea Nitrogen 35 mg/dL (7-18) H Creatinine 1.1 MG/DL (0.55-1.30) Estimat Glomerular Filtration Rate mL/min (>60) Glucose Level 83 MG/DL (74-106) Calcium Level 8.1 MG/DL (8.5-10.1) L Total Bilirubin 0.4 MG/DL (0.2-1.0) Aspartate Amino Transf (AST/SGOT) 27 U/L (15-37) Alanine Aminotransferase (ALT/SGPT) 24 U/L (12-78) Alkaline Phosphatase 145 U/L (46-116) H Pro-B-Type Natriuretic Peptide 143 pg/mL (0-125) H Total Protein 8.0 G/DL (6.4-8.2) Albumin 1.6 G/DL (3.4-5.0) L Globulin 6.4 g/dL Albumin/Globulin Ratio 0.2 (1.0-2.7) L Current Medications Medications (Trade) Dose Ordered Sig/Courtney Route PRN Reason Start Time Stop Time Status Last Admin Dose Admin Acetaminophen (Tylenol) 650 mg Q4H PRN ORAL fever 12/21/18 16:41 01/03/19 16:40 12/24/18 09:26 Chlorhexidine Gluconate (Amna-Hex 2%) 1 applic DAILY@2000 TOPIC 12/21/18 20:00 01/12/19 19:59 12/24/18 20:15 Clonidine HCl (Catapres Tab) 0.1 mg Q6H PRN GT for SBP >160 12/23/18 08:30 01/22/19 08:29 12/24/18 04:42 Colistimethate Sodium (Colistin *inhalation use only*) 150 mg Q12HR@10,22 INH 12/21/18 22:00 12/26/18 23:59 12/25/18 09:45 Heparin Sodium (Porcine) (Heparin 5000 units/ml) 5,000 units EVERY 12 HOURS SUBQ 12/21/18 21:00 01/03/19 20:59 12/25/18 09:23 Lansoprazole (Prevacid) 30 mg DAILY GT 12/25/18 09:00 01/24/19 08:59 12/25/18 09:18 Levothyroxine Sodium (Synthroid) 25 mcg DAILY@0630 ORAL 12/22/18 06:30 01/08/19 06:29 12/25/18 06:15 Tigecycline 50 mg/ Sodium Chloride 110 ml @ 220 mls/hr EVERY 12 HOURS IVPB 12/21/18 21:00 01/01/19 20:59 12/25/18 09:18 Jazz Alexander M.D. Dec 25, 2018 15:44
[2018-12-25 16:00] VITALS: BP 148/78
--- NOTE | 2018-12-25 16:42 | Internal Med Progress Note ---
Subjective Date of Service: Dec 25, 2018 Physician Name Roni Carson Attending Physician Isaiah Fritz MD Current Medications Medications (Trade) Dose Ordered Sig/Courtney Route PRN Reason Start Time Stop Time Status Last Admin Dose Admin Acetaminophen (Tylenol) 650 mg Q4H PRN ORAL fever 12/21/18 16:41 01/03/19 16:40 12/24/18 09:26 Chlorhexidine Gluconate (Amna-Hex 2%) 1 applic DAILY@2000 TOPIC 12/21/18 20:00 01/12/19 19:59 12/24/18 20:15 Clonidine HCl (Catapres Tab) 0.1 mg Q6H PRN GT for SBP >160 12/23/18 08:30 01/22/19 08:29 12/24/18 04:42 Colistimethate Sodium (Colistin *inhalation use only*) 150 mg Q12HR@10,22 INH 12/21/18 22:00 12/26/18 23:59 12/25/18 09:45 Heparin Sodium (Porcine) (Heparin 5000 units/ml) 5,000 units EVERY 12 HOURS SUBQ 12/21/18 21:00 01/03/19 20:59 12/25/18 09:23 Lansoprazole (Prevacid) 30 mg DAILY GT 12/25/18 09:00 01/24/19 08:59 12/25/18 09:18 Levothyroxine Sodium (Synthroid) 25 mcg DAILY@0630 ORAL 12/22/18 06:30 01/08/19 06:29 12/25/18 06:15 Tigecycline 50 mg/ Sodium Chloride 110 ml @ 220 mls/hr EVERY 12 HOURS IVPB 12/21/18 21:00 01/01/19 20:59 12/25/18 09:18 Allergies: Coded Allergies: No Known Allergies (Unverified , 12/04/18) ROS Limited/Unobtainable: Yes Subjective 73 YO M admitted with respiratory failure. Now pneumonia. S/P tracheostomy 12/20. [facility] vent. NANDO. Cover for Staci Matthews Objective Last Vital Signs Date Time Temp Pulse Resp B/P (MAP) Pulse Ox O2 Delivery O2 Flow Rate FiO2 12/25/18 16:00 Mechanical Ventilator Mechanical Ventilator Mechanical Ventilator 12/25/18 16:00 25 12/25/18 14:52 90 22 12/25/18 12:00 99.2 133/69 (90) 100 Laboratory Tests Test 12/25/18 04:35 White Blood Count 11.6 K/UL (4.8-10.8) H Red Blood Count 3.09 M/UL (4.70-6.10) L Hemoglobin 7.8 G/DL (14.2-18.0) L Hematocrit 25.0 % (42.0-52.0) L Mean Corpuscular Volume 81 FL (80-99) Mean Corpuscular Hemoglobin 25.4 PG (27.0-31.0) L Mean Corpuscular Hemoglobin Concent 31.4 G/DL (32.0-36.0) L Red Cell Distribution Width 19.5 % (11.6-14.8) H Platelet Count 277 K/UL (150-450) Mean Platelet Volume 8.6 FL (6.5-10.1) Neutrophils (%) (Auto) % (45.0-75.0) Lymphocytes (%) (Auto) % (20.0-45.0) Monocytes (%) (Auto) % (1.0-10.0) Eosinophils (%) (Auto) % (0.0-3.0) Basophils (%) (Auto) % (0.0-2.0) Differential Total Cells Counted 100 Neutrophils % (Manual) 81 % (45-75) H Lymphocytes % (Manual) 13 % (20-45) L Monocytes % (Manual) 2 % (1-10) Eosinophils % (Manual) 4 % (0-3) H Basophils % (Manual) 0 % (0-2) Band Neutrophils 0 % (0-8) Platelet Estimate Adequate Platelet Morphology Normal Hypochromasia 2+ Anisocytosis 2+ Microcytosis 1+ Sodium Level 145 MMOL/L (136-145) Potassium Level 4.4 MMOL/L (3.5-5.1) Chloride Level 112 MMOL/L (98-107) H Carbon Dioxide Level 22 MMOL/L (21-32) Anion Gap 11 mmol/L (5-15) Blood Urea Nitrogen 35 mg/dL (7-18) H Creatinine 1.1 MG/DL (0.55-1.30) Estimat Glomerular Filtration Rate mL/min (>60) Glucose Level 83 MG/DL (74-106) Calcium Level 8.1 MG/DL (8.5-10.1) L Total Bilirubin 0.4 MG/DL (0.2-1.0) Aspartate Amino Transf (AST/SGOT) 27 U/L (15-37) Alanine Aminotransferase (ALT/SGPT) 24 U/L (12-78) Alkaline Phosphatase 145 U/L (46-116) H Pro-B-Type Natriuretic Peptide 143 pg/mL (0-125) H Total Protein 8.0 G/DL (6.4-8.2) Albumin 1.6 G/DL (3.4-5.0) L Globulin 6.4 g/dL Albumin/Globulin Ratio 0.2 (1.0-2.7) L Microbiology Date/Time Source Procedure Growth Status 12/23/18 09:45 Blood Blood Culture - Preliminary NO GROWTH AFTER 24 HOURS Resulted 12/23/18 09:35 Blood Blood Culture - Preliminary NO GROWTH AFTER 24 HOURS Resulted Intake and Output 12/24/18 12/25/18 18:59 06:59 Intake Total 885 ml 785 ml Output Total 550 ml 1250 ml Balance 335 ml -465 ml Free Water 125 ml 125 ml IV Total 220 ml Tube Feeding 540 ml 660 ml Output Urine Total 550 ml 1000 ml Stool Total 250 ml # Bowel Movements 100 Objective General Appearance: WD/WN, no apparent distress, lethargic EENT: PERRL/EOMI, normal ENT inspection Neck: non-tender, normal alignment, supple, normal inspection Cardiovascular: normal peripheral pulses, normal rate, regular rhythm, no gallop/murmur, no JVD Respiratory/Chest: Mech vent; chest wall non-tender, respiratory distress, crackles/rales, rhonchi - bilaterally, expiratory wheezing Abdomen: normal bowel sounds, non tender, soft, no organomegaly, no mass Extremities: normal range of motion, non-tender Skin: normal pigmentation, warm/dry Assessment/Plan Problem List: (1) Pneumonia Assessment & Plan: Acenitobacter. See ID note. Continue tegacycline (2) Anemia Assessment & Plan: S/P tansfusion 2 units PRBC 12/05/18. (3) Elevated troponin Assessment & Plan: See cardiology consult. (4) COPD (chronic obstructive pulmonary disease) (5) HTN (hypertension) Assessment & Plan: Currently on levophed (6) CHF (congestive heart failure) Assessment & Plan: LVEF=55-60% (7) Diabetes mellitus, type II (8) Chronic renal failure Assessment & Plan: See nephrology note. (9) Dysphagia (10) CAD (coronary artery disease) (11) Acute respiratory failure Assessment & Plan: Continue mech vent per pulm. S/P tracheostomy 12/20/18 (12) Hypothyroidism Status: not improved Assessment/Plan Discharge planning: SNF vs transitional care unit at [facility] hosp @ [place] Roni Carson MD Dec 25, 2018 16:42
--- NOTE | 2018-12-25 19:13 | NUR ---
HAND-OFF: Report given to DALILA WESTBROOK.
--- NOTE | 2018-12-25 19:15 | NUR ---
NURSE NOTES: Received bedside report from DARIANA Vanegas.Patient stable,no s/s of pain,no respiratory distress noted,SR on quality assurance nurse,pt nonverbal d/t trach inserted 12/20/18,A&Ox2,tolerated settings well Shiley 8 AC 16 TV 600 FiO2 25% no PEEP,GT in place running with Jevity 1.2 @ 60 ml/hr for 22 hrs d/t Synthroid,flush 125ml every shift,BS active in all quadrants,rectal tube in place,f/cath for retention running toward gravity,IV on BRADLEY PICC TKO dressing changed,1 unit of pRBC given,no adverse reactions noted,bed secured in a low safety position,call light within a reach.Will continue to monitor and follow POC.
[2018-12-25] MEDS: Dyna-Hex 2% Top Sol 2oz TOPIC SCH (19:58)
[2018-12-25 20:00] VITALS: BP 149/82
--- NOTE | 2018-12-25 21:03 | NUR ---
CASE MANAGEMENT: REVIEW SI: PNA . SEPSIS . RESPIRATORY FAILURE TRACHEOSTOMY 12/20 T 96.4 HR 85 RR 21 BP 148/78 SAT 100% MECH VENT FIO2 25 WBC 11.6 H/H 7.8/25.0 IS: TIGECYCLINE IV Q12HR PROTONIX IV QD COLISTIN INH Q12HR GT FEEDING JEVITY 1.2 @60ML/HR STEP DOWN UNIT STATUS DCP: PATIENT IS FROM [facility]
[2018-12-26] VITALS: BP 138/85
[2018-12-26 04:00] VITALS: BP 152/94
[2018-12-26 05:38] LABS: BASOPHILS % (AUTO) 0.8 % (0.0-2.0); EOSINOPHILS % (AUTO) 3.4 % (0.0-3.0); HEMATOCRIT 29.3 % (42.0-52.0); HEMOGLOBIN 9.2 G/DL (14.2-18.0); LYMPHOCYTES % (AUTO) 19.1 % (20.0-45.0); MEAN CORPUSCULAR VOLUME 83 FL (80-99); MONOCYTES % (AUTO) 6.3 % (1.0-10.0); NEUTROPHILS % (AUTO) 70.4 % (45.0-75.0); PLATELET COUNT 286 K/UL (150-450); RED BLOOD COUNT 3.53 M/UL (4.70-6.10); RED CELL DISTRIBUTION WIDTH 18.2 % (11.6-14.8); WHITE BLOOD COUNT 11.8 K/UL (4.8-10.8)
[2018-12-26] MEDS: Levothyroxine 25mcg tab ORAL SCH (05:40)
[2018-12-26 06:19] LABS: ALANINE AMINOTRANSFERASE 20 U/L (12-78); ALBUMIN 1.6 G/DL (3.4-5.0); ALBUMIN/GLOBULIN RATIO 0.2 (1.0-2.7); ALKALINE PHOSPHATASE 149 U/L (46-116); ANION GAP 8 mmol/L (5-15); ASPARTATE AMINO TRANSFERASE 22 U/L (15-37); BILIRUBIN,TOTAL 0.6 MG/DL (0.2-1.0); BLOOD UREA NITROGEN 30 mg/dL (7-18); CALCIUM 8.3 MG/DL (8.5-10.1); CARBON DIOXIDE 25 MMOL/L (21-32); CHLORIDE 112 MMOL/L (98-107); PHOSPHORUS 4.2 MG/DL (2.5-4.9); POTASSIUM 3.9 MMOL/L (3.5-5.1); SODIUM 145 MMOL/L (136-145)
--- NOTE | 2018-12-26 07:09 | NUR ---
HAND-OFF: Report given to DARIANA Martinez.Patient stable.
--- NOTE | 2018-12-26 07:10 | NUR ---
NURSE NOTES: Received patient from DARIANA Freitas. Patient denies pain or discomfort at this time. Patient VS stable at this time with no sign of acute distress. Patient is nonverbal but can communicate by mouthing words and writing. Patient is alert and oriented times 2-3 at this time. Patient showing sinus rhythm on the school lunch monitor. Patient is on trach to ventilator with setting of AC 16, TV 600, FiO2 25%, and peep 0. Patient tolerating setting with saturation of 98%. Patient has G tube that is patent, asymptomatic at this time. Patient has tube feeding of Jevity 1.2 at 60cc/hr that is on hold until 0730 at this time. Patient is running feeding for 22 hours with flush of 125mL per shift. Patient skin is intact at this time. Patient has a left upper arm PICC line that is patent and saline locked at this time. Patient has Magnesium of 1.7 at this time. Left message for Dr Fritz. No new orders received at this time. Will follow up. Patient also attempted to stand during the night. Left message for Dr Fritz to see if PT can be ordered for this patient. Will follow up.
--- NOTE | 2018-12-26 07:42 | NUR ---
RESPIRATORY NOTE: Patient received mechanically ventilated on PB 840 with current ordered vent settings. Patient has trach size 8.0 Shiley cuffed that is secured with trach tie and guard. There are bilateral clear breaths sounds auscultated and small amount of clear/white frothy secretions were suctioned without incident. There is an ambu bag available at the bedside and the vent is connected to a red outlet. Vent alarms are functional and audible. Patient is is comfortable at this time. Will continue to monitor.
[2018-12-26 08:00] VITALS: BP 127/69
--- NOTE | 2018-12-26 08:30 | NUR ---
NURSE NOTES: Dr Fritz ordered 2G magnesium IV times one for this patient.
[2018-12-26] MEDS: Tigecycline 50 MG in NS 110 ML IVPB SCH (09:05)
[2018-12-26] MEDS: Heparin 5000 units/ml inj SUBQ SCH (09:06)
--- NOTE | 2018-12-26 11:24 | NUR ---
NURSE NOTES: Spoke with Dr Fritz regarding the plan for this patient. Patient is to be transferred to [facility] and not [facility]. Araseli Keyboard Instrument Tuner is aware.
--- NOTE | 2018-12-26 11:26 | Pulmonolgy Critical Care Note ---
Critical Care - Asmt/Plan Problems: (1) Acute respiratory failure (2) Septic shock (3) Feeding by G-tube (4) ATN (acute tubular necrosis) (5) Diabetes mellitus, type II (6) COPD (chronic obstructive pulmonary disease) (7) History of hypertension (8) Hypothyroidism Respiratory: monitor respiratory rate, adjust FIO2, CXR Cardiac: continue to monitor HR/BP Renal: F/U I&O, keep IV fluid, check electrolytes Infectious Disease: check cultures Gastrointestinal: continue feedings/current rate Endocrine: monitor blood sugar, check TSH Hematologic: monitor H/H, transfuse if hgb<8.5 Neurologic: PRN Morphine, keep patient comfortable Affect: PRN ativan Notes Reviewed: staff combat information center officer Discussed with: nurses, consultants, telephonic nurse case managermanager molecular - Objective Last 24 Hour Vital Signs Date Time Temp Pulse Resp B/P (MAP) Pulse Ox O2 Delivery O2 Flow Rate FiO2 12/26/18 09:01 92 16 25 12/26/18 08:00 98.4 84 23 127/69 (88) 100 12/26/18 08:00 25 12/26/18 08:00 84 12/26/18 08:00 Mechanical Ventilator Mechanical Ventilator Mechanical Ventilator 12/26/18 07:38 95 16 25 12/26/18 05:02 91 24 25 12/26/18 04:00 Mechanical Ventilator Mechanical Ventilator Mechanical Ventilator 12/26/18 04:00 25 12/26/18 04:00 98.2 95 22 152/94 (113) 100 12/26/18 03:41 95 22 25 12/26/18 03:24 111 12/26/18 00:56 101 23 25 12/26/18 00:00 Mechanical Ventilator Mechanical Ventilator Mechanical Ventilator 12/26/18 00:00 98.8 105 24 138/85 (102) 100 12/25/18 23:26 97 12/25/18 23:00 91 20 25 12/25/18 22:23 90 20 99 Mechanical Ventilator 25 12/25/18 22:11 88 18 95 Mechanical Ventilator 25 12/25/18 21:00 87 19 25 12/25/18 20:00 25 12/25/18 20:00 96.4 85 21 149/82 (104) 100 12/25/18 20:00 Mechanical Ventilator Mechanical Ventilator Mechanical Ventilator 12/25/18 20:00 82 12/25/18 18:43 76 22 25 12/25/18 16:40 78 18 25 12/25/18 16:00 81 12/25/18 16:00 Mechanical Ventilator Mechanical Ventilator Mechanical Ventilator 12/25/18 16:00 99.3 79 17 148/78 (101) 100 12/25/18 16:00 25 12/25/18 14:52 90 22 25 12/25/18 12:35 93 20 25 12/25/18 12:00 25 12/25/18 12:00 99.2 84 16 133/69 (90) 100 12/25/18 12:00 75 12/25/18 12:00 Mechanical Ventilator Mechanical Ventilator Mechanical Ventilator Status: awake Condition: critical HEENT: atraumatic Lungs: chest wall tender Heart: HR/BP stable, regular Abdomen: active bowel sounds, feeding tube Extremities: edema Decubiti: location Accucheck: 101 Critical Care - Subjective ROS Limited/Unobtainable: Yes Condition: critical EKG Rhythm: Sinus Rhythm FI02: 25 Vent Support Breath Rate: 16 Vent Support Mode: AC Vent Tidal Volume: 600 Sputum Amount: Small PEEP: 0.0 PIP: 23 Tube Feeding Amount: 60 I&O: Intake and Output 12/25/18 12/26/18 19:00 07:00 Intake Total 1315 ml 835 ml Output Total 1250 ml 850 ml Balance 65 ml -15 ml Free Water 195 ml 125 ml IV Total 220 ml 110 ml Tube Feeding 660 ml 600 ml Blood Product 240 ml Output Urine Total 1050 ml 650 ml Stool Total 200 ml 200 ml CXR: less infiltrate ET-Tube: 8.0 ET Position: 24 Labs: Laboratory Tests Test 12/26/18 03:45 White Blood Count 11.8 K/UL (4.8-10.8) H Red Blood Count 3.53 M/UL (4.70-6.10) L Hemoglobin 9.2 G/DL (14.2-18.0) L Hematocrit 29.3 % (42.0-52.0) L Mean Corpuscular Volume 83 FL (80-99) Mean Corpuscular Hemoglobin 26.0 PG (27.0-31.0) L Mean Corpuscular Hemoglobin Concent 31.3 G/DL (32.0-36.0) L Red Cell Distribution Width 18.2 % (11.6-14.8) H Platelet Count 286 K/UL (150-450) Mean Platelet Volume 9.2 FL (6.5-10.1) Neutrophils (%) (Auto) 70.4 % (45.0-75.0) Lymphocytes (%) (Auto) 19.1 % (20.0-45.0) L Monocytes (%) (Auto) 6.3 % (1.0-10.0) Eosinophils (%) (Auto) 3.4 % (0.0-3.0) H Basophils (%) (Auto) 0.8 % (0.0-2.0) Erythrocyte Sedimentation Rate 104 MM/HR (0-20) H Sodium Level 145 MMOL/L (136-145) Potassium Level 3.9 MMOL/L (3.5-5.1) Chloride Level 112 MMOL/L (98-107) H Carbon Dioxide Level 25 MMOL/L (21-32) Anion Gap 8 mmol/L (5-15) Blood Urea Nitrogen 30 mg/dL (7-18) H Creatinine 1.0 MG/DL (0.55-1.30) Estimat Glomerular Filtration Rate mL/min (>60) Glucose Level 77 MG/DL (74-106) Calcium Level 8.3 MG/DL (8.5-10.1) L Phosphorus Level 4.2 MG/DL (2.5-4.9) Magnesium Level 1.7 MG/DL (1.8-2.4) L Total Bilirubin 0.6 MG/DL (0.2-1.0) Aspartate Amino Transf (AST/SGOT) 22 U/L (15-37) Alanine Aminotransferase (ALT/SGPT) 20 U/L (12-78) Alkaline Phosphatase 149 U/L (46-116) H C-Reactive Protein, Quantitative 14.6 mg/dL (0.00-0.90) H Total Protein 8.5 G/DL (6.4-8.2) H Albumin 1.6 G/DL (3.4-5.0) L Globulin 6.9 g/dL Albumin/Globulin Ratio 0.2 (1.0-2.7) L Isaiah Fritz MD Dec 26, 2018 11:26
--- NOTE | 2018-12-26 11:31 | NUR ---
*-* DISCHARGE PLANNING *-* PATIENT HAS BEEN REFERRED BACK TO: [facility] P:[phone] F;[phone]
--- NOTE | 2018-12-26 11:46 | Internal Med Progress Note ---
Subjective Date of Service: Dec 26, 2018 Physician Name Roni Carson Attending Physician Isaiah Fritz MD Current Medications Medications (Trade) Dose Ordered Sig/Courtney Route PRN Reason Start Time Stop Time Status Last Admin Dose Admin Acetaminophen (Tylenol) 650 mg Q4H PRN ORAL fever 12/21/18 16:41 01/03/19 16:40 12/24/18 09:26 Chlorhexidine Gluconate (Amna-Hex 2%) 1 applic DAILY@2000 TOPIC 12/21/18 20:00 01/12/19 19:59 12/25/18 19:58 Clonidine HCl (Catapres Tab) 0.1 mg Q6H PRN GT for SBP >160 12/23/18 08:30 01/22/19 08:29 12/24/18 04:42 Colistimethate Sodium (Colistin *inhalation use only*) 150 mg Q12HR@10,22 INH 12/21/18 22:00 12/26/18 23:59 12/25/18 22:11 Heparin Sodium (Porcine) (Heparin 5000 units/ml) 5,000 units EVERY 12 HOURS SUBQ 12/21/18 21:00 01/03/19 20:59 12/26/18 09:06 Lansoprazole (Prevacid) 30 mg DAILY GT 12/25/18 09:00 01/24/19 08:59 12/26/18 09:05 Levothyroxine Sodium (Synthroid) 25 mcg DAILY@0630 ORAL 12/22/18 06:30 01/08/19 06:29 12/26/18 05:40 Tigecycline 50 mg/ Sodium Chloride 110 ml @ 220 mls/hr EVERY 12 HOURS IVPB 12/21/18 21:00 01/01/19 20:59 12/26/18 09:05 Allergies: Coded Allergies: No Known Allergies (Unverified , 12/04/18) ROS Limited/Unobtainable: Yes Subjective 73 YO M admitted with respiratory failure. Now pneumonia. S/P tracheostomy 12/20. [facility] vent. NANDO. Cover for Int Garret-Dr Matthews Objective Last Vital Signs Date Time Temp Pulse Resp B/P (MAP) Pulse Ox O2 Delivery O2 Flow Rate FiO2 12/26/18 09:01 92 16 25 12/26/18 08:00 98.4 127/69 (88) 100 2/13/19 08:00 Mechanical Ventilator Mechanical Ventilator Mechanical Ventilator Laboratory Tests Test 12/26/18 03:45 White Blood Count 11.8 K/UL (4.8-10.8) H Red Blood Count 3.53 M/UL (4.70-6.10) L Hemoglobin 9.2 G/DL (14.2-18.0) L Hematocrit 29.3 % (42.0-52.0) L Mean Corpuscular Volume 83 FL (80-99) Mean Corpuscular Hemoglobin 26.0 PG (27.0-31.0) L Mean Corpuscular Hemoglobin Concent 31.3 G/DL (32.0-36.0) L Red Cell Distribution Width 18.2 % (11.6-14.8) H Platelet Count 286 K/UL (150-450) Mean Platelet Volume 9.2 FL (6.5-10.1) Neutrophils (%) (Auto) 70.4 % (45.0-75.0) Lymphocytes (%) (Auto) 19.1 % (20.0-45.0) L Monocytes (%) (Auto) 6.3 % (1.0-10.0) Eosinophils (%) (Auto) 3.4 % (0.0-3.0) H Basophils (%) (Auto) 0.8 % (0.0-2.0) Erythrocyte Sedimentation Rate 104 MM/HR (0-20) H Sodium Level 145 MMOL/L (136-145) Potassium Level 3.9 MMOL/L (3.5-5.1) Chloride Level 112 MMOL/L (98-107) H Carbon Dioxide Level 25 MMOL/L (21-32) Anion Gap 8 mmol/L (5-15) Blood Urea Nitrogen 30 mg/dL (7-18) H Creatinine 1.0 MG/DL (0.55-1.30) Estimat Glomerular Filtration Rate mL/min (>60) Glucose Level 77 MG/DL (74-106) Calcium Level 8.3 MG/DL (8.5-10.1) L Phosphorus Level 4.2 MG/DL (2.5-4.9) Magnesium Level 1.7 MG/DL (1.8-2.4) L Total Bilirubin 0.6 MG/DL (0.2-1.0) Aspartate Amino Transf (AST/SGOT) 22 U/L (15-37) Alanine Aminotransferase (ALT/SGPT) 20 U/L (12-78) Alkaline Phosphatase 149 U/L (46-116) H C-Reactive Protein, Quantitative 14.6 mg/dL (0.00-0.90) H Total Protein 8.5 G/DL (6.4-8.2) H Albumin 1.6 G/DL (3.4-5.0) L Globulin 6.9 g/dL Albumin/Globulin Ratio 0.2 (1.0-2.7) L Intake and Output 12/25/18 12/26/18 19:00 07:00 Intake Total 1315 ml 835 ml Output Total 1250 ml 850 ml Balance 65 ml -15 ml Free Water 195 ml 125 ml IV Total 220 ml 110 ml Tube Feeding 660 ml 600 ml Blood Product 240 ml Output Urine Total 1050 ml 650 ml Stool Total 200 ml 200 ml Objective General Appearance: WD/WN, no apparent distress, lethargic EENT: PERRL/EOMI, normal ENT inspection Neck: non-tender, normal alignment, supple, normal inspection Cardiovascular: normal peripheral pulses, normal rate, regular rhythm, no gallop/murmur, no JVD Respiratory/Chest: Mech vent; chest wall non-tender, respiratory distress, crackles/rales, rhonchi - bilaterally, expiratory wheezing Abdomen: normal bowel sounds, non tender, soft, no organomegaly, no mass Extremities: normal range of motion, non-tender Skin: normal pigmentation, warm/dry Assessment/Plan Problem List: (1) Pneumonia Assessment & Plan: Acenitobacter. See ID note. Continue tegacycline (2) Anemia Assessment & Plan: S/P tansfusion 2 units PRBC 12/05/18. (3) Elevated troponin Assessment & Plan: See cardiology consult. (4) COPD (chronic obstructive pulmonary disease) (5) HTN (hypertension) Assessment & Plan: Currently on levophed (6) CHF (congestive heart failure) Assessment & Plan: LVEF=55-60% (7) Diabetes mellitus, type II (8) Chronic renal failure Assessment & Plan: See nephrology note. (9) Dysphagia (10) CAD (coronary artery disease) (11) Acute respiratory failure Assessment & Plan: Continue mech vent per pulm. S/P tracheostomy 12/20/18 (12) Hypothyroidism Status: progressing Assessment/Plan Discharge planning: SNF vs transitional care unit at [facility] hosp @ [place] Roni Carson MD Dec 26, 2018 11:46
[2018-12-26 11:56] VITALS: BP 130/62
[2018-12-26] MEDS: Colistin for inhalation INH SCH (12:37)
--- NOTE | 2018-12-26 13:15 | NUR ---
ZIGZAGGER NOTES PT ACCEPTED TO [facility] [address] [place] TO TRANSPORT WITH AN ETA 1430. [facility] [phone]
--- NOTE | 2018-12-26 13:33 | NUR ---
NURSE NOTES: Patient is to be discharged today. Left message for Dr Alexander at this time to see if we need to continue antibiotics at assisted.
[2018-12-26] MEDS ORDERED: COLISTIMETHATE150 M1 INH (13:42)
--- NOTE | 2018-12-26 13:43 | Cardiac Electrophysiology PN ---
Assessment/Plan Assessment/Plan 1. CHF with elevated BNP due to diastolic dysfunction EF 55%. 2. Respiratory failure on the ventilator via tracheostomy that was done on 3. Hypertension. On prn Clonidine 4. Severe sepsis, likely due to pneumonia 5. Diabetes 6. Dysphagia, status post PEG placement. 7. Azotemia, DW RN Subjective Subjective On the vent via Tracheostomy. Alert and responsive. Objective Last 24 Hour Vital Signs Date Time Temp Pulse Resp B/P (MAP) Pulse Ox O2 Delivery O2 Flow Rate FiO2 12/26/18 12:47 88 18 100 Mechanical Ventilator 25 12/26/18 12:38 70 16 25 12/26/18 12:37 70 16 99 Mechanical Ventilator 25 12/26/18 12:00 Mechanical Ventilator Mechanical Ventilator Mechanical Ventilator 12/26/18 12:00 25 12/26/18 11:56 98.4 73 16 130/62 (84) 99 12/26/18 10:57 91 19 25 12/26/18 09:01 92 16 25 12/26/18 08:00 98.4 84 23 127/69 (88) 100 12/26/18 08:00 25 12/26/18 08:00 84 12/26/18 08:00 Mechanical Ventilator Mechanical Ventilator Mechanical Ventilator 12/26/18 07:38 95 16 25 12/26/18 05:02 91 24 25 12/26/18 04:00 Mechanical Ventilator Mechanical Ventilator Mechanical Ventilator 12/26/18 04:00 25 12/26/18 04:00 98.2 95 22 152/94 (113) 100 12/26/18 03:41 95 22 25 12/26/18 03:24 111 12/26/18 00:56 101 23 25 12/26/18 00:00 Mechanical Ventilator Mechanical Ventilator Mechanical Ventilator 12/26/18 00:00 98.8 105 24 138/85 (102) 100 12/25/18 23:26 97 12/25/18 23:00 91 20 25 12/25/18 22:23 90 20 99 Mechanical Ventilator 25 12/25/18 22:11 88 18 95 Mechanical Ventilator 25 12/25/18 21:00 87 19 25 12/25/18 20:00 25 12/25/18 20:00 96.4 85 21 149/82 (104) 100 12/25/18 20:00 Mechanical Ventilator Mechanical Ventilator Mechanical Ventilator 12/25/18 20:00 82 12/25/18 18:43 76 22 25 12/25/18 16:40 78 18 25 12/25/18 16:00 81 12/25/18 16:00 Mechanical Ventilator Mechanical Ventilator Mechanical Ventilator 12/25/18 16:00 99.3 79 17 148/78 (101) 100 12/25/18 16:00 25 12/25/18 14:52 90 22 25 Intake and Output 12/25/18 12/26/18 18:59 06:59 Intake Total 1255 ml 895 ml Output Total 1250 ml 850 ml Balance 5 ml 45 ml Free Water 195 ml 125 ml IV Total 220 ml 110 ml Tube Feeding 600 ml 660 ml Blood Product 240 ml Output Urine Total 1050 ml 650 ml Stool Total 200 ml 200 ml Laboratory Tests Test 12/26/18 03:45 White Blood Count 11.8 K/UL (4.8-10.8) H Red Blood Count 3.53 M/UL (4.70-6.10) L Hemoglobin 9.2 G/DL (14.2-18.0) L Hematocrit 29.3 % (42.0-52.0) L Mean Corpuscular Volume 83 FL (80-99) Mean Corpuscular Hemoglobin 26.0 PG (27.0-31.0) L Mean Corpuscular Hemoglobin Concent 31.3 G/DL (32.0-36.0) L Red Cell Distribution Width 18.2 % (11.6-14.8) H Platelet Count 286 K/UL (150-450) Mean Platelet Volume 9.2 FL (6.5-10.1) Neutrophils (%) (Auto) 70.4 % (45.0-75.0) Lymphocytes (%) (Auto) 19.1 % (20.0-45.0) L Monocytes (%) (Auto) 6.3 % (1.0-10.0) Eosinophils (%) (Auto) 3.4 % (0.0-3.0) H Basophils (%) (Auto) 0.8 % (0.0-2.0) Erythrocyte Sedimentation Rate 104 MM/HR (0-20) H Sodium Level 145 MMOL/L (136-145) Potassium Level 3.9 MMOL/L (3.5-5.1) Chloride Level 112 MMOL/L (98-107) H Carbon Dioxide Level 25 MMOL/L (21-32) Anion Gap 8 mmol/L (5-15) Blood Urea Nitrogen 30 mg/dL (7-18) H Creatinine 1.0 MG/DL (0.55-1.30) Estimat Glomerular Filtration Rate mL/min (>60) Glucose Level 77 MG/DL (74-106) Calcium Level 8.3 MG/DL (8.5-10.1) L Phosphorus Level 4.2 MG/DL (2.5-4.9) Magnesium Level 1.7 MG/DL (1.8-2.4) L Total Bilirubin 0.6 MG/DL (0.2-1.0) Aspartate Amino Transf (AST/SGOT) 22 U/L (15-37) Alanine Aminotransferase (ALT/SGPT) 20 U/L (12-78) Alkaline Phosphatase 149 U/L (46-116) H C-Reactive Protein, Quantitative 14.6 mg/dL (0.00-0.90) H Total Protein 8.5 G/DL (6.4-8.2) H Albumin 1.6 G/DL (3.4-5.0) L Globulin 6.9 g/dL Albumin/Globulin Ratio 0.2 (1.0-2.7) L Objective HEAD AND NECK: Tracheostomy in place. LUNGS: Coarse rhonchi. CARDIOVASCULAR: Regular S1 and S2 and mildly tachycardic. ABDOMEN: Status post G-tube. EXTREMITIES: No pitting edema. Darrell Cevallos MD Dec 26, 2018 13:43
--- NOTE | 2018-12-26 14:00 | NUR ---
NURSE NOTES: Gave report to DARIANA Contreras at [facility].
--- NOTE | 2018-12-26 15:37 | Infectious Diseases Prog Note ---
Assessment/Plan Assessment/Plan Assessment: Severe Sepsis; improvnig- likely 2ry to PNA -12/25 CXR: Improved but persistent bilateral perihilar infiltrates versus edema, over 3 days -12/22 CXR: Slightly increased bilateral interstitial and airspace opacities. -CXR: Bilateral diffuse interstitial and airspace infiltrates versus edema, worsening on the right over one day -Bcx NTD -u/a wbc 40-60, nit neg, leuk large; ucx 10-20 k P. mirablis ESBL (S Meropenem, Zosyn) -sp cx 12/20/18 - NF -influenza sc, legionela ag urine neg CT Chest 12/20/18 - Pulmonary infiltrates demonstrated bilaterally with most of airspace disease in the lower lobes right worse than left. Findings may be due to pneumonia. Please correlate clinically. Small bilateral pleural effusions slightly larger on the right. Small airways/reticular densities (tree-in-bud) also demonstrated. Differential diagnosis is large. Findings could certainly be related to bronchopneumonia, especially aspiration. Numerous other possibilities including bronchiolitis, TB , fungal, connective tissue disorders, among others. Fever, SP Leukocytosis, improving Acute respiratory failure s/p intubation 12/04 ELICIA, SP COPD DM2 HTN dysphagia s/p G-tube dementia SNF resident Plan: - Continue Tigecycline #14/14 for Acinetobacter - Continue INH Colistin #8/8 - INH colistin #1 D/C 12/13/18 - f/u repeat blood Cx -12/10/18 IV Vancomycin #7 and Meropenem #6 for PNA and UTI -12/10 SP Tamiflu #6 -12/05 AMikacin and Ertapenem #2 -12/07/18 SP empiric Azithromycin #3 -Monitor CBC/CMP, temperatures -aspiration precautions Will continue to follow along with you. Subjective Allergies: Coded Allergies: No Known Allergies (Unverified , 12/04/18) Subjective afebrile >72hrs wbc improved CXR improved discharge planning Objective Vital Signs Last 24 Hour Vital Signs Date Time Temp Pulse Resp B/P (MAP) Pulse Ox O2 Delivery O2 Flow Rate FiO2 12/26/18 12:47 88 18 100 Mechanical Ventilator 25 12/26/18 12:38 70 16 25 12/26/18 12:37 70 16 99 Mechanical Ventilator 25 12/26/18 12:00 Mechanical Ventilator Mechanical Ventilator Mechanical Ventilator 12/26/18 12:00 75 12/26/18 12:00 25 12/26/18 11:56 98.4 73 16 130/62 (84) 99 12/26/18 10:57 91 19 25 12/26/18 09:01 92 16 25 12/26/18 08:00 98.4 84 23 127/69 (88) 100 12/26/18 08:00 25 12/26/18 08:00 84 12/26/18 08:00 Mechanical Ventilator Mechanical Ventilator Mechanical Ventilator 12/26/18 07:38 95 16 25 12/26/18 05:02 91 24 25 12/26/18 04:00 Mechanical Ventilator Mechanical Ventilator Mechanical Ventilator 12/26/18 04:00 25 12/26/18 04:00 98.2 95 22 152/94 (113) 100 12/26/18 03:41 95 22 25 12/26/18 03:24 111 12/26/18 00:56 101 23 25 12/26/18 00:00 Mechanical Ventilator Mechanical Ventilator Mechanical Ventilator 12/26/18 00:00 98.8 105 24 138/85 (102) 100 12/25/18 23:26 97 12/25/18 23:00 91 20 25 12/25/18 22:23 90 20 99 Mechanical Ventilator 25 12/25/18 22:11 88 18 95 Mechanical Ventilator 25 12/25/18 21:00 87 19 25 12/25/18 20:00 25 12/25/18 20:00 96.4 85 21 149/82 (104) 100 12/25/18 20:00 Mechanical Ventilator Mechanical Ventilator Mechanical Ventilator 12/25/18 20:00 82 12/25/18 18:43 76 22 25 12/25/18 16:40 78 18 25 12/25/18 16:00 81 12/25/18 16:00 Mechanical Ventilator Mechanical Ventilator Mechanical Ventilator 12/25/18 16:00 99.3 79 17 148/78 (101) 100 12/25/18 16:00 25 Height (Feet): 5 Height (Inches): 6.00 Weight (Pounds): 149 Objective Status: awake Condition: critical HEENT: atraumatic Neck: full ROM Lungs: clear Heart: HR/BP stable Abdomen: soft, active bowel sounds Extremities: no C/C/E Decubiti: location Laboratory Tests Test 12/26/18 03:45 White Blood Count 11.8 K/UL (4.8-10.8) H Red Blood Count 3.53 M/UL (4.70-6.10) L Hemoglobin 9.2 G/DL (14.2-18.0) L Hematocrit 29.3 % (42.0-52.0) L Mean Corpuscular Volume 83 FL (80-99) Mean Corpuscular Hemoglobin 26.0 PG (27.0-31.0) L Mean Corpuscular Hemoglobin Concent 31.3 G/DL (32.0-36.0) L Red Cell Distribution Width 18.2 % (11.6-14.8) H Platelet Count 286 K/UL (150-450) Mean Platelet Volume 9.2 FL (6.5-10.1) Neutrophils (%) (Auto) 70.4 % (45.0-75.0) Lymphocytes (%) (Auto) 19.1 % (20.0-45.0) L Monocytes (%) (Auto) 6.3 % (1.0-10.0) Eosinophils (%) (Auto) 3.4 % (0.0-3.0) H Basophils (%) (Auto) 0.8 % (0.0-2.0) Erythrocyte Sedimentation Rate 104 MM/HR (0-20) H Sodium Level 145 MMOL/L (136-145) Potassium Level 3.9 MMOL/L (3.5-5.1) Chloride Level 112 MMOL/L (98-107) H Carbon Dioxide Level 25 MMOL/L (21-32) Anion Gap 8 mmol/L (5-15) Blood Urea Nitrogen 30 mg/dL (7-18) H Creatinine 1.0 MG/DL (0.55-1.30) Estimat Glomerular Filtration Rate mL/min (>60) Glucose Level 77 MG/DL (74-106) Calcium Level 8.3 MG/DL (8.5-10.1) L Phosphorus Level 4.2 MG/DL (2.5-4.9) Magnesium Level 1.7 MG/DL (1.8-2.4) L Total Bilirubin 0.6 MG/DL (0.2-1.0) Aspartate Amino Transf (AST/SGOT) 22 U/L (15-37) Alanine Aminotransferase (ALT/SGPT) 20 U/L (12-78) Alkaline Phosphatase 149 U/L (46-116) H C-Reactive Protein, Quantitative 14.6 mg/dL (0.00-0.90) H Total Protein 8.5 G/DL (6.4-8.2) H Albumin 1.6 G/DL (3.4-5.0) L Globulin 6.9 g/dL Albumin/Globulin Ratio 0.2 (1.0-2.7) L Current Medications Medications (Trade) Dose Ordered Sig/Courtney Route PRN Reason Start Time Stop Time Status Last Admin Dose Admin Acetaminophen (Tylenol) 650 mg Q4H PRN ORAL fever 12/21/18 16:41 01/03/19 16:40 12/24/18 09:26 Chlorhexidine Gluconate (Amna-Hex 2%) 1 applic DAILY@1999 TOPIC 12/21/18 20:00 01/12/19 19:59 12/25/18 19:58 Clonidine HCl (Catapres Tab) 0.1 mg Q6H PRN GT for SBP >160 12/23/18 08:30 01/22/19 08:29 12/24/18 04:42 Colistimethate Sodium (Colistin *inhalation use only*) 150 mg Q12HR@10,22 INH 12/21/18 22:00 12/26/18 23:59 12/26/18 12:37 Heparin Sodium (Porcine) (Heparin 5000 units/ml) 5,000 units EVERY 12 HOURS SUBQ 12/21/18 21:00 01/03/19 20:59 12/26/18 09:06 Lansoprazole (Prevacid) 30 mg DAILY GT 12/25/18 09:00 01/24/19 08:59 12/26/18 09:05 Levothyroxine Sodium (Synthroid) 25 mcg DAILY@0630 ORAL 12/22/18 06:30 01/08/19 06:29 12/26/18 05:40 Tigecycline 50 mg/ Sodium Chloride 110 ml @ 220 mls/hr EVERY 12 HOURS IVPB 12/21/18 21:00 01/01/19 20:59 12/26/18 09:05 Jazz Alexander M.D. Dec 26, 2018 15:37
[2018-12-26 16:00] VITALS: BP 142/85
--- NOTE | 2018-12-26 18:00 | NUR ---
NURSE NOTES: DARIANA Contreras at [facility] has been notified that the patient is to receive one more dose of Colistin and one more dose of Tygacil at 2100 tonight.
[2018-12-26] MEDS ORDERED: Tubing IV Secondary IV ONE (18:14)
[2018-12-26] MEDS ORDERED: NS 275ml ONE (18:14)
[2018-12-26] MEDS ORDERED: Tubing Blood Filter IV ONE (18:14)
[2018-12-26] MEDS ORDERED: NS Irrig 1000ml ONE (18:14)
--- NOTE | 2018-12-26 18:15 | NUR ---
NURSE NOTES: Report given to Ambulance personal and RT at this time. Patient transported to [facility] at this time. Patient VS stable at this time with no sign of acute distress.
--- NOTE | 2018-12-27 16:44 | Discharge Summary ---
Discharge Summary Discharge Summary _ DATE OF ADMISSION: 12/04/2018 DATE OF DISCHARGE: 12/26/2018 DISCHARGED BY: Dr. Isaiah Fritz CONSULTANTS: Dr. Jazz Matthews BRIEF HOSPITAL COURSE: Patient is a 73-year-old -Stateless male, who presented with chief complaint of altered mental status. Patient is a resident of [facility]. The patient was noted to be more altered than usual by the nursing staff. The patient was then transferred to [place] ER for further evaluation. He has medical history significant for diabetes type 2, pulmonary embolism, COPD, hypertension, hypothyroidism, chronic renal failure, dysphagia, coronary artery disease status post cardiac arrest, and gout. On evaluation at ED, patient was hypoxic and tachypneic and had significantly elevated temperature of 104 F. O2 saturation was 74% on room air, heart rate was elevated to 128, RR 26. Blood pressure was 115/62. Emergent oral intubation was done. Septic workup was initiated. Blood work showed WBC of 28 , hemoglobin was 8, hematocrit 24. Sodium was 140, potassium 3 BUN 33, creatinine 1.8. Lactic acid was elevated to 5.8. Troponin was 0.142, proBNP 2599. Urinalysis showed 3+ protein, 1+ ketone, 2+ blood, negative nitrite, 3+ leukocyte esterase, 2-4 RBC and 40-60 WBC. Chest x-ray showed bilateral infiltrates. He was then admitted to ICU for respiratory failure and elevated troponin. He was given 2 units packed RBC blood transfusion. He was noted to be hypotensive, blood pressure 71/46. ID was consulted. Patient had severe sepsis likely secondary to pneumonia, bacteremia, UTI and possible flu despite negative screening test. He was given IV vancomycin. Amikacin was discontinued and ertapenem was switched to meropenem. He was given azithromycin and Tamiflu for atypical and influenza coverage. He was continued on tube feeding. He was placed on strict aspiration precaution. He was placed on heparin subcutaneous for DVT prophylaxis. Venous duplex of lower extremity was negative for acute DVT. Ticket Counter was consulted. Patient had elevated BNP. Echocardiogram showed ejection fraction 55-60% with no active diastolic dysfunction. He was given Lasix IV. Lisinopril was added to his regimen. He was given hydralazine prn. Urinalysis showed Proteus mirabilis ESBL sensitive to meropenem and Zosyn. Legionella urine antigen was negative. Sputum culture showed growth of Acinetobacter. He was started on tigecycline. Leukocytosis persisted. Inhaled colistin was added but was eventually discontinued. He was placed on weaning protocol. Chest CT showed pulmonary infiltrates bilaterally right worse right worse than left. He was restarted on inhaled colistin. He had worsening renal function. Lasix and lisinopril was eventually discontinued. Patient was unable to be weaned off ventilator support. On 12/20/2018, he underwent tracheostomy. He tolerated the procedure well. He had diarrhea, rectal tube was inserted. Stool was negative for C. difficile. There was a drop in hemoglobin to 7.8, hematocrit 25. He was given another unit of packed RBC. Leukocytosis resolved. Patient was afebrile. Repeat blood culture did not isolate any growth. Repeat sputum culture showed normal upper respiratory jenny. He was eventually discharged back to [facility]. FINAL DIAGNOSES: Severe sepsis likely secondary to pneumonia Septic shock Acute hypoxemic respiratory failure status post intubation on 12/04/2018 Status post tracheostomy on 12/20/2018 Acute kidney injury Acute tubular necrosis Acute on chronic diastolic congestive heart failure Possible UTI with Proteus ESBL COPD Type 2 diabetes mellitus Hypertension Dysphagia status post G-tube Dementia Anemia requiring blood transfusion Coronary artery disease Hypothyroidism Diarrhea, C. difficile negative DISPOSITION: Patient was discharged to [facility]. DISCHARGE MEDICATIONS: Refer to Discharge Medication List. I have been assigned to complete a discharge summary on this account, I was not involved with the patient's management. Ana Alvarado NP Dec 27, 2018 16:44
== END 2018-12-26 18:15 | DRG 4 ==
LOC: EDBD 11:56 → EMR 12:40 → ICU 12:49 → EDBEDREQ 14:41 → ICU 15:10 → 2W 12-21 16:20
PROC: 5A1955Z Respiratory Ventilation, Greater than 96 Consecutive Hours (ICD-10-PCS; principal; 2018-12-04)
PROC: 0BH17EZ Insertion of Endotracheal Airway into Trachea, Via Natural or Artificial Opening (ICD-10-PCS; principal; 2018-12-04)
PROC: 02HV33Z Insertion of Infusion Device into Superior Vena Cava, Percutaneous Approach (ICD-10-PCS; 2018-12-14)
PROC: B548ZZA Ultrasonography of Superior Vena Cava, Guidance (ICD-10-PCS; 2018-12-14)
PROC: 0B110F4 Bypass Trachea to Cutaneous with Tracheostomy Device, Open Approach (ICD-10-PCS; 2018-12-20)
DX: A41.9 Sepsis, unspecified organism (principal); R65.21 Severe sepsis with septic shock; J18.9 Pneumonia, unspecified organism; N17.0 Acute kidney failure with tubular necrosis; I50.33 Acute on chronic diastolic (congestive) heart failure; J96.01 Acute respiratory failure with hypoxia; J44.0 Chronic obstructive pulmonary disease with (acute) lower respiratory infection; I13.0 Hypertensive heart and chronic kidney disease with heart failure and stage 1 through stage 4 chronic kidney disease, or unspecified chronic kidney disease; N39.0 Urinary tract infection, site not specified; Z99.11 Dependence on respirator [ventilator] status; E11.22 Type 2 diabetes mellitus with diabetic chronic kidney disease; N18.9 Chronic kidney disease, unspecified; R13.10 Dysphagia, unspecified; Z93.1 Gastrostomy status; I25.10 Atherosclerotic heart disease of native coronary artery without angina pectoris; Z86.74 Personal history of sudden cardiac arrest; B96.4 Proteus (mirabilis) (morganii) as the cause of diseases classified elsewhere; F03.90 Unspecified dementia, unspecified severity, without behavioral disturbance, psychotic disturbance, mood disturbance, and anxiety; D64.9 Anemia, unspecified; R19.7 Diarrhea, unspecified; E03.9 Hypothyroidism, unspecified
CPT/HCPCS: 36415; 36569; 36600; 71045; 71250; 76937; 80048; 80053; 80150; 80202; 81001; 81003; 82164; 82248; 82378; 82550; 82553; 82607; 82746; 82803; 82962; 83540; 83550; 83605; 83615; 83690; 83735; 83880; 84100; 84133; 84300; 84484; 84550; 85007; 85025; 85044; 85060; 85610; 85651; 85730; 86140; 86710; 86850; 86900; 86901; 86920; 87040; 87070; 87081; 87086; 87181; 87205; 87324; 89050; 93005; 93306; 93970; 94002; 94003; 94150; 94640; 96361; 96365; 96366; 96368; 99291; J8499